=== PATIENT | female | born 1955 | race Caucasian/White ===

== ENCOUNTER → 2018-01-14 | Outpatient (CLI) | payer OTHER ==
--- NOTE | 2018-01-14 16:39 | XR ---
EXAMINATION TYPE: XR lumbar spine 2 or 3V DATE OF EXAM: 01/14/2018 COMPARISON: NONE HISTORY: Low back pain TECHNIQUE: 3 views FINDINGS: Vertebra have normal alignment. Posterior elements are intact. The disc spaces are fairly n ormal. There is slight depression of the superior endplate of L3 of 5%. Abdominal aorta is atheromato us. There is osteopenia. Sacroiliac joints appear normal. IMPRESSION: Osteopenia. Slight depression of the superior endplate of L3. This is probably old.
== END | disposition home or self-care (01) ==
LOC: RADXRYALE 16:16
PROVIDERS: ATTEND Internal Medicine
DX: M85.88 Other specified disorders of bone density and structure, other site (principal); M53.86 Other specified dorsopathies, lumbar region
CPT/HCPCS: 72100

== ENCOUNTER → 2018-01-28 | Outpatient (CLI) | payer OTHER ==
--- NOTE | 2018-01-29 12:48 | ECHOF ---
Referral Reason:I10 hypertension MEASUREMENTS -------- HEIGHT: 162.6 cm WEIGHT: 149.7 kg BP: 180/87 RVIDd: 2.7 cm (< 3.3) IVSd: 1.2 cm (0.6 - 1.1) LVIDd: 4.0 cm (3.9 - 5.3) LVPWd: 1.3 cm (0.6 - 1.1) IVSs: 1.8 cm LVIDs: 2.7 cm LVPWs: 1.7 cm LA Diam: 3.1 cm (2.7 - 3.8) LAESV Index (A-L): 19.12 ml/m Ao Diam: 2.8 cm (2.0 - 3.7) AV Cusp: 1.5 cm (1.5 - 2.6) MV EXCURSION: 14.577 mm (> 18.000) MV EF SLOPE: 45 mm/s (70 - 150) EPSS: 0.6 cm MV E Duane: 0.87 m/s MV DecT: 304 ms MV A Duane: 1.18 m/s MV E/A Ratio: 0.74 AV maxP.13 mmHg AV meanP.41 mmHg RAP: 5.00 mmHg RVSP: 26.20 mmHg FINDINGS -------- Sinus rhythm. This was a technically adequate study. The left ventricular size is normal. There is mild concentric left ventricular hypertrophy. Overa ll left ventricular systolic function is normal with, an EF between 55 - 60 %. The right ventricle is normal in size. Normal LA size by volume 22+/-6 ml/m2. The right atrium is normal in size. There is moderate aortic valve sclerosis. Trace to mild aortic regurgitation. There is moderate a ortic stenosis present. Peak/mean gradient across the Aortic Valve is 60.13mmHg / 33.41mmHg. Mild mitral annular calcification present. Trace tricuspid regurgitation present. Right ventricular systolic pressure is normal at < 35 mmHg. The pulmonic valve was not well visualized. There is no pulmonic regurgitation present. The aortic root size is normal. IVC Not well visulized. There is no pericardial effusion. CONCLUSIONS -------- 1. Sinus rhythm. 2. This was a technically adequate study. 3. The left ventricular size is normal. 4. There is mild concentric left ventricular hypertrophy. 5. Overall left ventricular systolic function is normal with, an EF between 55 - 60 %. 6. Normal LA size by volume 22+/-6 ml/m2. 7. There is moderate aortic valve sclerosis. 8. Trace to mild aortic regurgitation. 9. There is moderate aortic stenosis present. 10. Peak/mean gradient across the Aortic Valve is 60.13mmHg / 33.41mmHg. 11. Mild mitral annular calcification present. 12. Trace tricuspid regurgitation present. 13. Right ventricular systolic pressure is normal at < 35 mmHg. 14. The pulmonic valve was not well visualized. 15. There is no pulmonic regurgitation present. 16. The aortic root size is normal. 17. IVC Not well visulized. 18. There is no pericardial effusion. GLOVE PAIRER: Angelica Hendricks RDCS
== END | disposition home or self-care (01) ==
LOC: RADECHMAIN 14:26
PROVIDERS: ATTEND Internal Medicine
DX: I08.2 Rheumatic disorders of both aortic and tricuspid valves (principal); I11.9 Hypertensive heart disease without heart failure
CPT/HCPCS: 93306

== ENCOUNTER → 2018-06-22 | Outpatient (CLI) | payer OTHER ==
--- NOTE | 2018-06-23 08:12 | PE ---
EXAMINATION TYPE: PET CT fusion skull to thigh DATE OF EXAM: 06/22/2018 COMPARISON: None at this institution. HISTORY: Left-sided breast cancer diagnosed 1997 completed radiation treatment 1998. TECHNIQUE: Following the intravenous administration of 13.074 mCi of F-18 FDG, whole body images are performed from the skull base to the midthigh. Images are reviewed on the computer in the coronal, axial, and sagittal planes. Reconstructed rotating images are created on independent workstation and reviewed on the computer. A noncontrast CT is performed in conjunction with the PET scan. SCAN: Subsequent Scan FINDINGS: SKULL BASE AND NECK: No suspicious hypermetabolic uptake is present. CHEST, MEDIASTINUM, AND HILAR REGION: There are multiple enlarged left axillary lymph nodes extending superiorly to level of clavicle, largest measures 2.9 x 2.0 cm axial image 67 with max SUV of 12.07. Abnormal supraclavicular 1.0 x 0.9 cm hypermetabolic lymph node axial image 56 is noted for referen ce. There are additional hypermetabolic but predominantly subcentimeter right axillary lymph nodes, max S UV is 15.48 axial image 72 of largest lymph node measuring 2.1 x 1.2 cm that has some fatty hilum paul ntified anteriorly. There is asymmetric diminished size to the left breast versus opposite right breast from prior lumpec meghan. Just below dystrophic calcifications there is irregular soft tissue with increased hypermetabol ic uptake, max SUV is 6.51 axial image 82. Local recurrence at this level cannot be excluded. Correla te with mammogram and ultrasound advised. ABDOMEN AND PELVIS: No suspicious hypermetabolic uptake is seen. OSSEOUS STRUCTURES: Osseous metastatic disease is suspected as there are several hypermetabolic foci throughout the bones present. Multifocal hypermetabolic lesions are seen in the spine for reference l eft T3 lesion axial image 70 has max SUV of 9.51 corresponding to subtle sclerotic focus. There is in volvement most prominently in the L3 vertebra axial image 156 with max SUV of 10.06. Mild height loss or compression at this level is felt present. This was present January 14, 2018 x-rays. Smaller hypermet abolic foci throughout the pelvis are also seen. OTHER CT: Evaluation noted suboptimal due to artifact related to patient's large body habitus. Mild cardiomegaly is present. Mitral annular calcifications are seen. Gallbladder has distended margins. Uterus is surgically absent. IMPRESSION: Suspect local neoplastic recurrence left breast with suspicious bilateral axillary adenop athy and osseous metastatic disease. Correlate clinically. Ultrasound-guided biopsy of largest left a xillary lymph node can be performed for tissue confirmation if desired.
== END | disposition home or self-care (01) ==
LOC: RADPETMAIN 12:02
PROVIDERS: ATTEND Internal Medicine Hematology & Oncology
DX: C50.112 Malignant neoplasm of central portion of left female breast (principal)
CPT/HCPCS: 78815; A9552

== ENCOUNTER → 2018-07-16 | Outpatient (CLI) | payer OTHER ==
--- NOTE | 2018-07-16 14:02 | MM ---
Reason for exam: additional evaluation requested from abnormal screening. Last mammogram was performed 5 years and 7 months ago. History: Patient has history of high-risk lesion on a previous biopsy at age 47, has history of high-risk lesion on a previous biopsy at age 47, and has history of breast cancer at age 43. Family history of breast cancer in maternal aunt at age 43. Benign right mammotome panel of the right breast, September 04, 2011. Benign ultrasound-guided core biopsy of the right breast, February 16, 2005. High risk excisional biopsy of the right breast, May 15, 2002. High risk excisional biopsy of the right breast, October 25, 2001. Lumpectomy of the left breast, 1998. Radiation therapy of the left breast, 1998. Excisional biopsy of the right breast. Took tamoxifen for 5 years. Physical Findings: Nurse Summary: 5 x 3cm nodule in the left breast at the nipple (nurse dw). MG 3D Diag Mammo W/Cad LT CC and MLO view(s) were taken of the left breast. Prior study comparison: December 02, 2012, CAD bilateral diagnostic mammogram. August 10, 2011, CAD bilateral diagnostic mammogram. The breast tissue is heterogeneously dense. This may lower the sensitivity of mammography. There are multiple masses persisting on spot compression in the upper inner quadrant and upper outer quadrant with upper outer quadrant linear 1.6cm group of calcifications and large dystrophic calcifications. Post therapy change also seen on the left. These results were verbally communicated with the patient and result sheet given to the patient on 07/16/18. ASSESSMENT: Highly suggestive of malignancy, BI-RAD 5 RECOMMENDATION: Ultrasound core biopsy of the left breast. Biopsy scheduled for 07/16/18 at 12:20.
--- NOTE | 2018-07-16 14:06 | USB ---
Reason for exam: additional evaluation requested from abnormal screening. History: Patient has history of high-risk lesion on a previous biopsy at age 47, has history of high-risk lesion on a previous biopsy at age 47, and has history of breast cancer at age 43. Family history of breast cancer in maternal aunt at age 43. Benign right mammotome panel of the right breast, September 04, 2011. Benign ultrasound-guided core biopsy of the right breast, February 16, 2005. High risk excisional biopsy of the right breast, May 15, 2002. High risk excisional biopsy of the right breast, October 25, 2001. Lumpectomy of the left breast, 1998. Radiation therapy of the left breast, 1998. Excisional biopsy of the right breast. Took tamoxifen for 5 years. US Breast LT Left complete breast ultrasound includes all four quadrants, the retroareolar region and axilla. Finding demonstrates several solid, highly suspicious lesions measuring 0.8 x 0.5 x 0.6cm at 12 o'clock, 0.4 x 0.3 x 0.6cm at 1 o'clock, 0.9 x 0.5 x 0.6cm at 4 o'clock, 0.7 x 0.4 x 1.4cm at 9 o'clock, 0.5 x 0.7 x 0.5cm at the nipple and a 0.3 x 0.4 x 0.4cm highly suspicious lesion at the axilla. These results were verbally communicated with the patient and result sheet given to the patient on 07/16/18. ASSESSMENT: Highly suggestive of malignancy, BI-RAD 5 RECOMMENDATION: Ultrasound core biopsy of the left breast. One site biopsy for new pathology diagnosis/type. Biopsy scheduled for 07/16/18 at 12:20.
== END ==
LOC: RADMAMWWP 10:10
PROVIDERS: ATTEND Internal Medicine Hematology & Oncology
DX: N63.20 Unspecified lump in the left breast, unspecified quadrant (principal); Z85.3 Personal history of malignant neoplasm of breast
CPT/HCPCS: 77061; 77065

== ENCOUNTER → 2018-07-16 | Day surgery (SDC) | payer OTHER ==
[2018-07-16 11:57] VITALS: RESP 16; BMI 55.7
[2018-07-16 12:34] VITALS: BP 139/71; PULSE 75; TEMP 98.6
--- NOTE | 2018-07-16 12:51 | USB ---
EXAMINATION TYPE: US biopsy breast VAD LT DATE OF EXAM: 07/16/2018 CLINICAL HISTORY: Z85.3 Personal HX Of Breast CA, N63 Breast Lump. TECHNIQUE: Ultrasound guided core biopsy of left breast. COMPARISON: Diagnostic left mammogram of the same date FINDINGS: The procedure of ultrasound guided core biopsy was explained to the patient. Benefits, alt ernatives, and risks were discussed. An informed consent was then obtained. Preprocedural timeout w as performed The patient was placed in supine positioning for imaging and for the procedure. The overlying skin w as prepped and draped in usual sterile fashion. Lidocaine buffered with bicarbonate was used as anes thetic into the skin and subcutaneous tissue up to the 0.8 x 0.5 x 0.6 cm mass at the 12:00 position in zone a in the left breast. Under ultrasound guidance, a 12-gauge vacuum assisted biopsy gun device was used to obtain 5 core jim ples. Following this, a ribbon-shaped biopsy marker was left in lesion. The patient tolerated the procedure well without any immediate complication. The patient was kept in the radiology department for short stay after the procedure and then discharged home in stable condi tion. IMPRESSION: Successful, uncomplicated ultrasound guided core biopsy of the highly suspicious 0.8 x 0. 5 x 0.6 cm mass at the 12:00 position in the left breast, full pathology results to follow. Multiple other suspicious left sided masses and suspicious left axillary lymph nodes, of increased FDG avidity on the recent PET/CT, are seen in this patient with a history of left breast carcinoma.
== END | disposition home or self-care (01) ==
LOC: RADUSWWP 10:16 → EDSTATUS 12:20
PROVIDERS: ATTEND Internal Medicine Hematology & Oncology
DX: N63.21 Unspecified lump in the left breast, upper outer quadrant (principal); Z85.3 Personal history of malignant neoplasm of breast
CPT/HCPCS: 19083; A4648; J2001

== ENCOUNTER → 2018-11-09 | Outpatient (CLI) | payer OTHER ==
--- NOTE | 2018-11-11 10:13 | PE ---
Nuclear medicine PET/CT history: Breast carcinoma, subsequent Patient received 13.2 mCi F-18 FDG intravenously in delayed scanning was performed from the skull bas e to the mid thighs. Localization and attenuation correction CT scan was performed. Correlation to prior nuclear medicine PET/CT 06/22/2018 Neck and chest: Uptake in the level of the vocal cords is likely due to speaking during the exam. The re is no evident mediastinal, axillary, or hilar adenopathy. No evident lung mass. There is interstit ial change, pleural thickening noted within the lungs. Nonenlarged left axillary node shows an SUV of 2.4, decreased from prior Abdomen pelvis: No evident liver mass, no retroperitoneal adenopathy. No suspicious hypermetabolic up take. No ascites. Osseous structures: There is some uptake identified within the T3 vertebral body, SUV is 4.4 decrease d from prior which measured SUV 9.5. Multiple sclerotic foci are scattered within the skeleton which are more conspicuous and perhaps more extensive than on previous exam. Some mild hypermetabolic uptak e present within the T8 vertebral body SUV 2.6. Degenerative disc changes, facet arthropathy noted in the lumbar spine. IMPRESSION: Improvement in the abnormal hypermetabolic uptake, adenopathy seen on prior exam. There i s increased conspicuity of bony metastatic disease as described.
== END | disposition home or self-care (01) ==
LOC: RADPETMAIN 09:50
PROVIDERS: ATTEND Internal Medicine Hematology & Oncology
DX: C79.51 Secondary malignant neoplasm of bone (principal); C50.112 Malignant neoplasm of central portion of left female breast
CPT/HCPCS: 78815; A9552

== ENCOUNTER → 2018-11-27 | Outpatient (CLI) | payer OTHER ==
--- NOTE | 2018-11-27 13:19 | XR ---
EXAMINATION TYPE: XR chest 2V DATE OF EXAM: 11/27/2018 COMPARISON: 07/16/2009 INDICATION: Short of breath, history of breast cancer TECHNIQUE: Frontal and lateral views of the chest are obtained. FINDINGS: The heart size is normal. The pulmonary vasculature is normal. Some minimal infiltrate appears to be at the right base. Correlate for plate atelectasis. Early pneum onia could be considered in the proper clinical setting.. IMPRESSION: 1. Minimal infiltrate in the right lower lobe. Correlate for atelectasis and pneumonia. Follow-up can be performed as clinically indicated.
== END ==
LOC: RADXRMAIN 12:46
PROVIDERS: ATTEND Nurse Practitioner Adult Health
DX: R91.8 Other nonspecific abnormal finding of lung field (principal); C50.112 Malignant neoplasm of central portion of left female breast; C79.51 Secondary malignant neoplasm of bone; D05.00 Lobular carcinoma in situ of unspecified breast; Z71.3 Dietary counseling and surveillance
CPT/HCPCS: 71046

== ENCOUNTER → 2019-01-22 | Outpatient (CLI) | payer OTHER ==
--- NOTE | 2019-01-22 13:19 | US ---
EXAMINATION TYPE: US venous doppler duplex LE LT DATE OF EXAM: 01/22/2019 1:00 PM COMPARISON: NONE CLINICAL HISTORY: M79.662 Pain in left lower legR22.42Localized swell. Patient states she missed one "water pill" 4 days ago, her leg swelled and has not gone down. SIDE PERFORMED: Right TECHNIQUE: The lower extremity deep venous system is examined utilizing real time linear array sonog darline with graded compression, doppler sonography and color-flow sonography. VESSELS IMAGED: External Iliac Vein (EIV) Common Femoral Vein Deep Femoral Vein Greater Saphenous Vein * Femoral Vein Popliteal Vein Small Saphenous Vein * Proximal Calf Veins (* superficial vessels) Suboptimal exam due to large patient size. No evidence of DVT at this time. Left Leg: Negative for DVT IMPRESSION: 1. Left lower extremity ultrasound negative for deep venous thrombosis.
--- NOTE | 2019-01-22 13:37 | XR ---
EXAMINATION TYPE: XR chest 2V DATE OF EXAM: 01/22/2019 COMPARISON: 11/27/2018 INDICATION: C 50.112 TECHNIQUE: Frontal and lateral views of the chest are obtained. FINDINGS: The heart size is prominent. The pulmonary vasculature is normal. The lungs are clear. IMPRESSION: 1. Mild Cardiomegaly
== END | disposition home or self-care (01) ==
LOC: RADUSWWP 12:30
PROVIDERS: ATTEND Internal Medicine Hematology & Oncology
DX: I51.7 Cardiomegaly (principal); C50.112 Malignant neoplasm of central portion of left female breast; C79.51 Secondary malignant neoplasm of bone; R22.42 Localized swelling, mass and lump, left lower limb; Z71.3 Dietary counseling and surveillance
CPT/HCPCS: 71046

== ENCOUNTER 2019-03-05 14:03 | Inpatient (IN) | payer OTHER ==
[2019-03-05] MEDS ORDERED: IPRATROPIUM-ALBUTEROL 3 ML NEB INHALATION STA (14:42)
[2019-03-05] MEDS ORDERED: ONDANSETRON 4 MG/2 ML VIAL IVP STA (14:43)
[2019-03-05] MEDS ORDERED: FAMOTIDINE 20 MG/2 ML VIAL IV STA (14:43)
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
[2019-03-05 15:03] LABS: Basophils % (A) 1 %; Eosinophils % (A) 1 %; HCT 34.1 % (34.0-46.0); HGB 11.9 gm/dL (11.4-16.0); Lymphocytes # (A) 0.1 k/uL (1.0-4.8); Lymphocytes % (A) 7 %; MCH 36.4 pg (25.0-35.0); MCHC 34.9 g/dL (31.0-37.0); MCV 104.3 fL (80.0-100.0); Macrocytosis Slight; Mean Platelet Volume 8.2; Monocytes # (A) 0.1 k/uL (0-1.0); Monocytes % (A) 3 %; Neutrophils # (A) 1.4 k/uL (1.3-7.7); Neutrophils % (A) 86 %; RBC 3.27 m/uL (3.80-5.40); RDW 13.7 % (11.5-15.5); WBC 1.6 k/uL (3.8-10.6)
[2019-03-05 15:12] LABS: INR 0.9 (<1.2); Partial Thromboplastin Time 23.9 sec (22.0-30.0); Prothrombin Time 9.9 sec (9.0-12.0)
[2019-03-05 15:16] LABS: Albumin 3.3 g/dL (3.5-5.0); Calcium 8.2 mg/dL (8.4-10.2); Total Protein 6.2 g/dL (6.3-8.2)
[2019-03-05 15:33] LABS: Anisocytosis (M) Present; Platelet Count 60 k/uL (150-450); Polychromasia Present
--- NOTE | 2019-03-05 16:29 | XR ---
EXAMINATION TYPE: XR chest 2V DATE OF EXAM: 03/05/2019 COMPARISON: Chest x-ray January 22, 2019. HISTORY: History of breast cancer with shortness of breath TECHNIQUE: Frontal and lateral views of the chest are obtained. FINDINGS: Overlying EKG leads are present. There is no focal air space opacity, pleural effusion, or pneumothorax seen. The cardiac silhouette size is stable and mildly enlarged. The osseous structur es are demineralized. IMPRESSION: Mild cardiomegaly without acute pulmonary process. No significant change from prior.
[2019-03-05] MEDS ORDERED: NALOXONE 0.4 MG/ML 1 ML VIAL IV PRN (16:57)
[2019-03-05] MEDS ORDERED: IPRATROPIUM-ALBUTEROL 3 ML NEB INHALATION PRN (16:57)
[2019-03-05] MEDS ORDERED: ONDANSETRON 4 MG/2 ML VIAL IVP PRN (16:57)
--- NOTE | 2019-03-05 17:26 | CT ---
EXAMINATION TYPE: CT angio chest DATE OF EXAM: 03/05/2019 5:15 PM COMPARISON: None HISTORY: SOB, Hx of Breast CA with mets CT DLP: 702.3 mGycm Automated exposure control for dose reduction was used. CONTRAST: CTA scan of the thorax is performed with IV Contrast, patient injected with 80 mL of Isovue 370, pulm onary embolism protocol. There are 3-D post processed images.. FINDINGS: There are some emphysematous changes in the lungs. There is mild reticular density at the lung bases consistent with scarring and atelectasis. There is no pleural effusion. Heart size is normal. There i s no pericardial effusion. Thoracic aorta is intact. There is no aneurysm or dissection. There is no mediastinal adenopathy. There are no hilar masses. There is normal contrast opacification of the pulm onary arteries. There are no filling defects. There are paratracheal lymph nodes measuring less than 1 cm. There are some subtle mixed density areas in the liver. There are numerous osteoblastic foci in the thoracic spine in the vertebral bodies. There are also so me foci of osteoblastic change in the ribs. IMPRESSION: NO EVIDENCE OF PULMONARY EMBOLISM.. 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 THERE IS PROG RESSION OF THE BLASTIC CHANGES COMPARED TO OLD CT SCAN OF 06/15/1718. SUBTLE SMALL AREAS OF MIXED DEN SITY IN THE LIVER COULD RELATE TO METASTATIC DISEASE. MILD PULMONARY EMPHYSEMA. MILD SCARRING AT THE LUNG BASES.
[2019-03-05] MEDS: SODIUM CHLORIDE 0.9% 1,000 ML IV SCH (17:53)
[2019-03-05] MEDS: IPRATROPIUM-ALBUTEROL 3 ML NEB INHALATION SCH (21:18)
[2019-03-05] MEDS: SENNOSIDES 8.6 MG TAB PO SCH (21:38)
[2019-03-05] MEDS: GABAPENTIN 300 MG CAP PO SCH (21:38)
[2019-03-05] MEDS: ATORVASTATIN 40 MG TAB PO SCH (21:38)
[2019-03-05] MEDS: LETROZOLE 2.5 MG TAB PO SCH (21:38)
[2019-03-05] MEDS: PANTOPRAZOLE 40 MG/10 ML VIAL IV SCH (21:41)
[2019-03-05] MEDS: LORATADINE 10 MG TAB PO SCH (21:41)
[2019-03-06] MEDS: HYDROcodone/APAP 7.5-325MG 1 EACH TAB PO PRN ×2 (07:22→16:21)
[2019-03-06] MEDS: LORATADINE 10 MG TAB PO SCH (07:23)
[2019-03-06] MEDS: SENNOSIDES 8.6 MG TAB PO SCH ×2 (07:23→22:02)
[2019-03-06] MEDS: LETROZOLE 2.5 MG TAB PO SCH ×2 (07:24→22:02)
[2019-03-06] MEDS: PANTOPRAZOLE 40 MG/10 ML VIAL IV SCH (07:25)
[2019-03-06] MEDS: IPRATROPIUM-ALBUTEROL 3 ML NEB INHALATION SCH ×4 (07:53→20:27)
[2019-03-06 08:21] LABS: HCT 30.6 % (34.0-46.0); HGB 10.4 gm/dL (11.4-16.0); MCH 35.7 pg (25.0-35.0); MCV 105.1 fL (80.0-100.0); Macrocytosis Moderate; RBC 2.91 m/uL (3.80-5.40); RDW 14.8 % (11.5-15.5)
[2019-03-06 08:29] LABS: ALT 37 U/L (9-52); AST 49 U/L (14-36); African American GFR (CKD) >90 (>60 ml/min/1.73 sqM); Albumin 2.8 g/dL (3.5-5.0); Alkaline Phosphatase 55 U/L (38-126); Anion Gap 7 mmol/L; Blood Urea Nitrogen 14 mg/dL (7-17); Calcium 7.9 mg/dL (8.4-10.2); Carbon Dioxide 27 mmol/L (22-30); Chloride 102 mmol/L (98-107); Glucose 95 mg/dL (74-99); Potassium 3.9 mmol/L (3.5-5.1); Sodium 136 mmol/L (137-145); Total Bilirubin 1.1 mg/dL (0.2-1.3); Total Protein 5.4 g/dL (6.3-8.2)
[2019-03-06 08:32] LABS: Platelet Count 54 k/uL (150-450); WBC 1.1 k/uL (3.8-10.6)
[2019-03-06] MEDS ORDERED: PANTOPRAZOLE 40 MG/10 ML VIAL IV SCH (09:00)
[2019-03-06] MEDS: SODIUM CHLORIDE 0.9% 1,000 ML IV SCH ×2 (10:05→20:24)
[2019-03-06 10:11] LABS: Band Neutrophils % 1 %; Eosinophils # (M) 0.01 k/uL (0-0.7); Lymphocytes # (M) 0.08 k/uL (1.0-4.8); Monocytes # (M) 0.03 k/uL (0-1.0); Neutrophils % (M) 88 %; Nucleated Red Blood Cells 0 /100 WBC (0-0); Total Cells Counted 100
[2019-03-06] MEDS ORDERED: PETROLATUM, WHITE OINT 50 GM TUBE TOPICAL PRN (13:20)
--- NOTE | 2019-03-06 13:24 | P.CONS ---
History of Present Illness - Reason for Consult Consult date: 03/06/19 Metastatic Breast Cancer Requesting physician: Ashutosh Saldana - Chief Complaint dysphagia - History of Present Illness Santa is a patient well known to us, primary oncologist Dr. Wheat. She has known metastatic Breast Cancer. Most recently progression in spiny bone and status post radiation. Since radiation increased dysphagia, secretion, and pain. Increased Shortness of breath and chills. She has open burn from radiation. On presentation pancytopenia, ibrance on old. Review of Systems A 14 point review of systems assessed and completed and all negative except HPI Past Medical History Past Medical History: Cancer, CVA/TIA, Hyperlipidemia, Hypertension Additional Past Medical History / Comment(s): hx CVA left side 2018, Left breast cancer 1997, spine cancer 2017 History of Any Multi-Drug Resistant Organisms: None Reported Past Surgical History: Breast Surgery, Hysterectomy, Joint Replacement Additional Past Surgical History / Comment(s): left knee replacement, several breast biopsies Past Anesthesia/Blood Transfusion Reactions: No Reported Reaction Past Psychological History: No Psychological Hx Reported Smoking Status: Former smoker Past Alcohol Use History: Rare Past Drug Use History: None Reported Medications and Allergies Home Medications Medication Instructions Recorded Confirmed Type Aspirin [Adult Low Dose Aspirin EC] 162 mg PO DAILY 07/03/18 03/05/19 History Atorvastatin [Lipitor] 40 mg PO HS 07/03/18 03/05/19 History Diltiazem HCl [Diltiazem 24Hr ER] 180 mg PO DAILY 07/03/18 03/05/19 History Albuterol Inhaler [Ventolin Hfa 2 puff INHALATION RT-QID PRN 03/05/19 03/05/19 History Inhaler] Fluticasone Nasal [place] [Flonase 1 spray EA NOSTRIL DAILY 03/05/19 03/05/19 History Nasal [place]] Furosemide [Lasix] 40 mg PO DAILY 03/05/19 03/05/19 History Gabapentin [Neurontin] 300 mg PO DAILY 03/05/19 03/05/19 History Gabapentin [Neurontin] 600 mg PO HS 03/05/19 03/05/19 History Letrozole [Femara] 2.5 mg PO DAILY 03/05/19 03/05/19 History Magic Mouthwash 30 - 60 ml PO QID PRN 03/05/19 03/05/19 History Montelukast [Singulair] 10 mg PO HS 03/05/19 03/05/19 History Omeprazole 20 mg PO DAILY 03/05/19 03/05/19 History Potassium Chloride 20 meq PO DAILY 03/05/19 03/05/19 History Allergies Allergy/AdvReac Type Severity Reaction Status Date / Time No Known Allergies Allergy Verified 03/05/19 14:14 Physical Exam Vitals: Vital Signs Temp Pulse Pulse Resp BP BP Pulse Ox 03/06/19 08:05 100 03/06/19 07:53 100 03/06/19 07:00 98.7 F 96 16 118/77 95 03/06/19 04:00 105 H 03/06/19 01:18 98.3 F 105 H 18 114/70 94 L 03/06/19 00:00 105 H 03/05/19 21:29 127 H 03/05/19 21:18 124 H 97 03/05/19 19:45 110 H 03/05/19 19:43 98.7 F 110 H 18 126/75 96 03/05/19 17:37 99.9 F H 105 H 19 148/95 98 03/05/19 15:50 98 20 124/75 99 03/05/19 15:34 98 03/05/19 15:21 98 03/05/19 14:11 99.1 F 101 H 20 116/76 91 L Intake and Output 03/05/19 03/06/19 03/06/19 22:59 06:59 14:59 Intake Total 150 Balance 150 Intake: Intake, IV Titration 150 Amount Sodium Chloride 0.9% 1, 150 000 ml @ 75 mls/hr IV . [id number] [facility] Rx#:[id number] Other: Voiding Method Toilet # Voids 1 1 General: Alert and Oriented x3, No Acute Distress Head: Normocytic, Atraumatic Neck: Supple Mouth: No Lesions, No Thrush Eyes: Non-sclerotic No Palpable cervical, supraclavicular, axillary adenopathy Heart: Regular Rate, Regular Rhythm Lungs: Clear to Ausculations, No Wheeze, No Rhonchi, Diminishe bilateral lower lobes, No increased respiratory effort noted Abdomen: Soft, Non-Distended, Non-Tended, BSx4 Extremities: No Edema, Equal Strength Neurological: No Focal Defects: No sensory or motor deficits noted Psych: Calm and cooperative Evidence of radiation excoriation posterior thorax erythema and mild edema noted Results CBC & Chem 7: 03/06/19 07:02 03/06/19 07:02 Labs: Abnormal Lab Results - Last 24 Hours (Table) 03/05/19 03/05/19 03/06/19 Range/Units 14:53 14:53 07:02 WBC 1.6 L 1.1 L* (3.8-10.6) k/uL RBC 3.27 L 2.91 L (3.80-5.40) m/uL Hgb 10.4 L (11.4-16.0) gm/dL Hct 30.6 L (34.0-46.0) % MCV 104.3 H 105.1 H (80.0-100.0) fL MCH 36.4 H 35.7 H (25.0-35.0) pg Plt Count 60 L 54 L (150-450) k/uL Neutrophils # (Manual) 0.90 L (1.3-7.7) k/uL Lymphocytes # 0.1 L (1.0-4.8) k/uL Lymphocytes # (Manual) 0.08 L (1.0-4.8) k/uL Sodium (137-145) mmol/L Glucose 106 H (74-99) mg/dL Calcium 8.2 L (8.4-10.2) mg/dL AST 49 H (14-36) U/L Total Protein 6.2 L (6.3-8.2) g/dL Albumin 3.3 L (3.5-5.0) g/dL 03/06/19 Range/Units 07:02 WBC (3.8-10.6) k/uL RBC (3.80-5.40) m/uL Hgb (11.4-16.0) gm/dL Hct (34.0-46.0) % MCV (80.0-100.0) fL MCH (25.0-35.0) pg Plt Count (150-450) k/uL Neutrophils # (Manual) (1.3-7.7) k/uL Lymphocytes # (1.0-4.8) k/uL Lymphocytes # (Manual) (1.0-4.8) k/uL Sodium 136 L (137-145) mmol/L Glucose (74-99) mg/dL Calcium 7.9 L (8.4-10.2) mg/dL AST 49 H (14-36) U/L Total Protein 5.4 L (6.3-8.2) g/dL Albumin 2.8 L (3.5-5.0) g/dL Microbiology - Last 24 Hours (Table) 03/05/19 14:57 Blood Culture - Final Blood 03/05/19 15:10 Group A Strep Throat Culture - Preliminary Throat CT scan - chest: report reviewed Assessment and Plan Plan: Pancytopenia: - Secondary to chemotherapy with ibrance and Radiation - Hold chemotherapy at this time - Monitor S/s Infection - transfuse hemoglobin less than 7, platlets les than 10 - Levaquin Metastatic Breast cancer - Bone - ?Progression - Xgeva, Femara, and Ibrance - XRT to spine recently completed Increased Secretions - Resulting in increased Dysphagia - trial bentyl and scope Shortness of Breath: - CTA negative Radiation Burn Posterior thorax: - Silvadene Neoplastic Related Pain: - Continue current pain regimen - Add bowel protocol.
[2019-03-06 13:40] VITALS: BMI 53.7
--- NOTE | 2019-03-06 15:08 | P.HPIM ---
History of Present Illness H&P Date: 03/05/19 Chief Complaint: Intractable nausea and vomiting Patient is 62-year-old female with a known history of metastatic breast cancer to thoracic and lumbar vertebrae and ribs with blastic lesions, hypertension, hyperlipidemia and history of CVA TIA with some left-sided weakness came to ER with complaints of nausea vomiting and unable to tolerate oral diet. Patient has completed radiation therapy recently and has been having throat pain and unable to tolerate oral diet. Patient also complaining of shortness of breath and sinus congestion as well as postnasal drip which has been bothering a lot. Denied any complaints of fever but patient does have chills. Patient is also on oral chemotherapy. Patient was breast Cance was initially diagnosed in 1997 and has recurrence last year. Patient has metastatic lesions to bones. No complaints of dysuria or hematuria. Chest x-ray showed mild cardiomegaly without acute pulmonary process. No signal change from prior. CT angiogram of the chest showed no evidence of pulmonary embolism. Osteoblastic metastatic disease in the bony thorax. There is progression of the blastic changes compared to old computed tomography scan of 06/15/2018. Subtle small areas of mixed density in the liver could relate to metastatic disease. Mild pulmonary emphysema. Mild scarring at the lung bases. EKG showed sinus rhythm. WBC 1.6 and platelets 60,000 Hemoglobin 11.3 Strep throat negative. Review of Systems Constitutional: Denied any fever. But patient does have chills.. Generalized weakness and malaise. loss. Abdomen: Nausea vomiting and no abdominal pain or diarrhea.. Cardiovascular: Patient denies any chest pain or short of breath no palpitations. Respiratory: Cough without sputum production.. Does have shortness of breath Neurologic: Patient denied any numbness or tingling headache. Musculoskeletal: Patient denies any complaints of joint swelling or deformity. Skin: Negative Psychiatric: Negative Endocrine: No heat or cold intolerance. No recent weight gain. Genitourinary: No dysuria or hematuria. All other 14 point ROS negative except the above Past Medical History Past Medical History: Cancer, CVA/TIA, Hyperlipidemia, Hypertension Additional Past Medical History / Comment(s): hx CVA left side 2017, Left breast cancer 1997, spine cancer 2017 History of Any Multi-Drug Resistant Organisms: None Reported Past Surgical History: Breast Surgery, Hysterectomy, Joint Replacement Additional Past Surgical History / Comment(s): left knee replacement, several breast biopsies Past Anesthesia/Blood Transfusion Reactions: No Reported Reaction Past Psychological History: No Psychological Hx Reported Smoking Status: Former smoker Past Alcohol Use History: Rare Past Drug Use History: None Reported Medications and Allergies Home Medications Medication Instructions Recorded Confirmed Type Aspirin [Adult Low Dose Aspirin EC] 162 mg PO DAILY 07/03/18 03/05/19 History Atorvastatin [Lipitor] 40 mg PO HS 07/03/18 03/05/19 History Diltiazem HCl [Diltiazem 24Hr ER] 180 mg PO DAILY 07/03/18 03/05/19 History Albuterol Inhaler [Ventolin Hfa 2 puff INHALATION RT-QID PRN 03/05/19 03/05/19 History Inhaler] Fluticasone Nasal [place] [Flonase 1 spray EA NOSTRIL DAILY 03/05/19 03/05/19 History Nasal [place]] Furosemide [Lasix] 40 mg PO DAILY 03/05/19 03/05/19 History Gabapentin [Neurontin] 300 mg PO DAILY 03/05/19 03/05/19 History Gabapentin [Neurontin] 600 mg PO HS 03/05/19 03/05/19 History Letrozole [Femara] 2.5 mg PO DAILY 03/05/19 03/05/19 History Magic Mouthwash 30 - 60 ml PO QID PRN 03/05/19 03/05/19 History Montelukast [Singulair] 10 mg PO HS 03/05/19 03/05/19 History Omeprazole 20 mg PO DAILY 03/05/19 03/05/19 History Potassium Chloride 20 meq PO DAILY 03/05/19 03/05/19 History Allergies Allergy/AdvReac Type Severity Reaction Status Date / Time No Known Allergies Allergy Verified 03/05/19 14:14 Physical Exam Vitals: Vital Signs Temp Pulse Pulse Resp BP BP Pulse Ox 03/05/19 21:29 127 H 03/05/19 21:18 124 H 97 03/05/19 19:43 98.7 F 110 H 18 126/75 96 03/05/19 17:37 99.9 F H 105 H 19 148/95 98 03/05/19 15:50 98 20 124/75 99 03/05/19 15:34 98 03/05/19 15:21 98 03/05/19 14:11 99.1 F 101 H 20 116/76 91 L Intake and Output 03/05/19 03/05/19 03/05/19 06:59 14:59 22:59 Other: Weight 141.974 kg PHYSICAL EXAMINATION: Patient is lying in the bed comfortably, mild distress, awake alert and oriented.. HEENT: Normocephalic. Neck is supple. Pupils reactive. Nostrils clear. Oral cavity is moist. Ears reveal no drainage. Neck reveals no JVD, carotid bruits, or thyromegaly. CHEST EXAMINATION: Trachea is central. Patient does have red skinrash on the upper chest and upper back due to recent radiation. Symmetrical expansion. Bibasilar diminished air entry. Lung chiang clear to auscultation and percussion. CARDIAC: Normal S1, S2 with no gallops. No murmurs ABDOMEN: Soft. Bowel sounds normal. No organomegaly. No abdominal bruits. Extremities: reveal no edema. No clubbing or cyanosis Neurologically awake, alert, oriented x3 with well-coordinated movements. No focal deficits noted Skin: No rash or skin lesions. Psychiatric: Coperative. Nonsuicidal Musculoskeletal: No joint swelling or deformity. Normal range of motion. Results CBC & Chem 7: 03/06/19 07:02 03/06/19 07:02 Labs: Abnormal Lab Results - Last 24 Hours (Table) 03/05/19 03/05/19 Range/Units 14:53 14:53 WBC 1.6 L (3.8-10.6) k/uL RBC 3.27 L (3.80-5.40) m/uL MCV 104.3 H (80.0-100.0) fL MCH 36.4 H (25.0-35.0) pg Plt Count 60 L (150-450) k/uL Lymphocytes # 0.1 L (1.0-4.8) k/uL Glucose 106 H (74-99) mg/dL Calcium 8.2 L (8.4-10.2) mg/dL AST 49 H (14-36) U/L Total Protein 6.2 L (6.3-8.2) g/dL Albumin 3.3 L (3.5-5.0) g/dL Microbiology - Last 24 Hours (Table) 03/05/19 15:10 Group A Strep Throat Culture - Preliminary Throat Thrombosis Risk Factor Assmnt - DVT/VTE Prophylaxis DVT/VTE Prophylaxis: Pharmacologic Prophylaxis ordered Assessment and Plan Assessment: Intractable nausea and vomiting and throat pain likely due to radiation related esophagitis. Postnasal drip with possible acute sinusitis. Metastatic breast cancer to bones and liver. Currently completed radiation therapy. Patient is also on oral chemotherapy. Chills without any reported fever History of breast cancer was a diagnosis in 1997 Previous history of smoking and emphysematous changes in the lungs. Hypertension Hyperlipidemia History of CVA with mild left-sided weakness DVT prophylaxis plan: Patient will be continued on IV hydration with normal saline. Symptomatic management for nausea vomiting and GI prophylaxis with Zantac IV twice a day. Pain management will be continued. Also will start on breathing treatments in the form of DuoNeb's. We will consider empiric antibiotics. Follow-up culture reports. Oncology will be consulted. Otherwise continue the current management and further recommendations based on the clinical course. Prognosis is poor at this time. Time with Patient: Greater than 30
[2019-03-06] MEDS: LEVOFLOXACIN 500MG-D5W PMX 500 MG in DEXTROSE/WATER 1 100ML.BAG IVPB SCH (16:05)
[2019-03-06 18:44] LABS: Appearance,Urine Cloudy (Clear); Bilirubin,Urine Negative (Negative); Blood,Urine Small (Negative); Color,Urine Yellow; Glucose,Urine (UA) Negative (Negative); Ketones,Urine Negative (Negative); Leukocyte Esterase,Urine Small (Negative); Mucus,Urine Few /hpf; Nitrite,Urine Negative (Negative); PH, Urine 6.5 (5.0-8.0); Protein,Urine 1+ (Negative); RBC,Urine 3 /hpf (0-5); Specific Gravity,Urine 1.024 (1.001-1.035); Squamous Epithelial Cell,Urine 2 /hpf (0-4)
[2019-03-06] MEDS ORDERED: ALBUTEROL NEBULIZED 2.5 MG/3 ML INHALATION PRN (19:46)
[2019-03-06] MEDS ORDERED: DICYCLOMINE 10 MG CAP PO PRN (19:48)
[2019-03-06] MEDS: ATORVASTATIN 40 MG TAB PO SCH (22:01)
[2019-03-06] MEDS: SCOPOLAMINE 1.5MG/72HR PATCH TRANSDERM SCH (22:01)
[2019-03-06] MEDS: ACYCLOVIR 200 MG CAP PO SCH (22:01)
[2019-03-06] MEDS: FAMOTIDINE 20 MG/2 ML VIAL IV SCH (22:02)
[2019-03-06] MEDS: GABAPENTIN 300 MG CAP PO SCH (22:02)
[2019-03-06] MEDS: TRIAMCINOLONE 0.1% CREAM 80 GM TUBE TOPICAL SCH (22:03)
[2019-03-07] MEDS: IPRATROPIUM-ALBUTEROL 3 ML NEB INHALATION SCH ×4 (07:58→20:00)
[2019-03-07] MEDS: ACYCLOVIR 200 MG CAP PO SCH ×2 (08:27→20:32)
[2019-03-07] MEDS: ASPIRIN 81 MG PO SCH (08:27)
[2019-03-07] MEDS: HYDROcodone/APAP 7.5-325MG 1 EACH TAB PO PRN ×2 (08:27→17:17)
[2019-03-07] MEDS: FAMOTIDINE 20 MG/2 ML VIAL IV SCH ×2 (08:28→20:32)
[2019-03-07] MEDS: PANTOPRAZOLE 40 MG TABLET PO SCH (08:28)
[2019-03-07] MEDS: FLUTICASONE 50MCG/SPRAY NASAL 16GM EA NOSTRIL SCH (08:28)
[2019-03-07] MEDS: LORATADINE 10 MG TAB PO SCH (08:28)
[2019-03-07] MEDS: FUROSEMIDE 40 MG TAB PO SCH (08:28)
[2019-03-07] MEDS: SENNOSIDES 8.6 MG TAB PO SCH ×2 (08:28→20:32)
[2019-03-07] MEDS: DILTIAZEM CD 180 MG CAP.ER.24H PO SCH (08:28)
[2019-03-07] MEDS: TRIAMCINOLONE 0.1% CREAM 80 GM TUBE TOPICAL SCH ×2 (08:29→20:39)
[2019-03-07] MEDS: SODIUM CHLORIDE 0.9% 1,000 ML IV SCH ×2 (08:29→22:23)
[2019-03-07 08:30] LABS: HCT 26.9 % (34.0-46.0); HGB 9.4 gm/dL (11.4-16.0); MCH 36.8 pg (25.0-35.0); MCHC 34.8 g/dL (31.0-37.0); MCV 105.7 fL (80.0-100.0); Macrocytosis Moderate; Mean Platelet Volume 10.2; RBC 2.55 m/uL (3.80-5.40); RDW 14.1 % (11.5-15.5)
[2019-03-07] MEDS: POTASSIUM CHLORIDE ER 20 MEQ TAB.ER PO SCH (08:44)
[2019-03-07 08:56] LABS: Platelet Count 57 k/uL (150-450); WBC 0.9 k/uL (3.8-10.6)
--- NOTE | 2019-03-07 14:11 | FL ---
EXAMINATION TYPE: FL barium swallow w video DATE OF EXAM: 03/07/2019 MODIFIED SWALLOW / DEGLUTITION STUDY CLINICAL HISTORY: Dysphagia. Currently undergoing treatment for metastatic breast cancer to bone. TECHNIQUE: Deglutition study is performed utilizing thin liquid barium, honey and nectar thick liqui d barium, barium thick applesauce, and barium coated cracker. A total of 35 seconds of fluoroscopic t cliff was utilized. 0 spot images are saved to PACS. COMPARISON: None. FINDINGS: The oral and pharyngeal phases show satisfactory initiation and propagation with all modali ties tested. Satisfactory mastication is seen with solid modalities tested. There is no evidence of penetration or aspiration with any modality tested. No significant pharyngeal residue was appreciate d. IMPRESSION: Normal deglutition study. Please refer to speech therapist notes for further details if necessary.
[2019-03-07] MEDS: LEVOFLOXACIN 500MG-D5W PMX 500 MG in DEXTROSE/WATER 1 100ML.BAG IVPB SCH (14:24)
[2019-03-07] MEDS: FILGRASTIM-SNDZ 480 MCG/0.8 ML SYRINGE SQ SCH (14:24)
--- NOTE | 2019-03-07 16:44 | P.PN ---
Subjective Progress Note Date: 03/07/19 Principal diagnosis: Radiation induced dysphagia COmpleted bedside swallow with difficulty therefore sent for barium swallow. Radiation burn same, chills and subjective fevers improved. Her ANC and WBC has decreased and added granix today Objective - Vital Signs Vital signs: Vital Signs Temp 98.0 F 03/07/19 14:10 Pulse 92 03/07/19 16:09 Resp 19 03/07/19 07:37 BP 125/76 03/07/19 14:10 Pulse Ox 96 03/07/19 14:10 Intake & Output 03/06/19 03/07/19 03/07/19 18:59 06:59 18:59 Intake Total 850 Balance 850 Weight 141.974 kg Intake: Intake, IV Titration 850 Amount Sodium Chloride 0.9% 1, 850 000 ml @ 75 mls/hr IV . [id number] [facility] Rx#:[id number] Other: Voiding Method Toilet Toilet # Voids 1 2 3 - Exam General: Alert and Oriented x3, No Acute Distress Head: Normocytic, Atraumatic Neck: Supple Mouth: No Lesions, No Thrush Eyes: Non-sclerotic No Palpable cervical, supraclavicular, axillary adenopathy Heart: Regular Rate, Regular Rhythm Lungs: Clear to Ausculations, No Wheeze, No Rhonchi, Diminishe bilateral lower lobes, No increased respiratory effort noted Abdomen: Soft, Non-Distended, Non-Tended, BSx4 Extremities: No Edema, Equal Strength Neurological: No Focal Defects: No sensory or motor deficits noted Psych: Calm and cooperative Evidence of radiation excoriation posterior thorax erythema and mild edema noted - Labs CBC & Chem 7: 03/07/19 06:54 03/06/19 07:02 Labs: Abnormal Lab Results - Last 24 Hours (Table) 03/06/19 03/06/19 03/07/19 Range/Units 07:02 18:30 06:54 WBC 0.9 L* (3.8-10.6) k/uL RBC 2.55 L (3.80-5.40) m/uL Hgb 9.4 L (11.4-16.0) gm/dL Hct 26.9 L (34.0-46.0) % MCV 105.7 H (80.0-100.0) fL MCH 36.8 H (25.0-35.0) pg Plt Count 57 L (150-450) k/uL CA 15-3 Antigen 114.2 H (0.0-32.3) U/mL CA 27-29 135.7 H (0.0-38.5) U/mL Urine Appearance Cloudy H (Clear) Urine Protein 1+ H (Negative) Urine Blood Small H (Negative) Ur Leukocyte Esterase Small H (Negative) Urine Mucus Few H (None) /hpf Microbiology - Last 24 Hours (Table) 03/06/19 14:50 Blood Culture Gram Stain - Preliminary Blood Blood Culture - Preliminary Coagulase Negative Staph 03/05/19 15:10 Group A Strep Throat Culture - Final Throat 03/06/19 14:50 Blood Culture - Final Blood 03/05/19 14:57 Blood Culture Gram Stain - Preliminary Blood Blood Culture - Preliminary Coagulase Negative Staph Assessment and Plan Plan: Pancytopenia: - Secondary to chemotherapy with ibrance and Radiation - Hold chemotherapy at this time - Monitor S/s Infection - transfuse hemoglobin less than 7, platlets les than 10 - Levaquin - Add Zarxio GCSF Metastatic Breast cancer - Bone - ?Progression - Xgeva, Femara, and Ibrance - Ibrance on hold - XRT to spine recently completed Increased Secretions - Resulting in increased Dysphagia - trial bentyl and scope Shortness of Breath: - CTA negative Radiation Burn Posterior thorax: - Silvadene Neoplastic Related Pain: - Continue current pain regimen - Add bowel protocol.
[2019-03-07] MEDS ORDERED: LETROZOLE 2.5 MG TAB PO SCH (17:00)
[2019-03-07] MEDS: GABAPENTIN 300 MG CAP PO SCH ×2 (17:14→20:38)
[2019-03-07] MEDS: ATORVASTATIN 40 MG TAB PO SCH ×2 (17:15→20:38)
--- NOTE | 2019-03-08 01:15 | P.PN ---
Subjective Progress Note Date: 03/06/19 Principal diagnosis: Intractable nausea and vomiting Recent radiation therapy Patient is 62-year-old female with a known history of metastatic breast cancer to thoracic and lumbar vertebrae and ribs with blastic lesions, hypertension, hyperlipidemia and history of CVA TIA with some left-sided weakness came to ER with complaints of nausea vomiting and unable to tolerate oral diet. Patient has completed radiation therapy recently and has been having throat pain and unable to tolerate oral diet. Patient also complaining of shortness of breath and sinus congestion as well as postnasal drip which has been bothering a lot. Denied any complaints of fever but patient does have chills. Patient is also on oral chemotherapy. Patient was breast Cance was initially diagnosed in 1997 and has recurrence last year. Patient has metastatic lesions to bones. No complaints of dysuria or hematuria. Chest x-ray showed mild cardiomegaly without acute pulmonary process. No signal change from prior. CT angiogram of the chest showed no evidence of pulmonary embolism. 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 There is progression of the blastic changes compared to old computed tomography scan of 06/15/2018. Subtle small areas of mixed density in the liver could relate to metastatic disease. Mild pulmonary emphysema. Mild scarring at the lung bases. EKG showed sinus rhythm. WBC 1.6 and platelets 60,000 Hemoglobin 11.3 Strep throat negative. 03/06/2019 Patient is still having some nausea and sore throat. Patient also complaining of chills. Empiric antibiotics in the form of Levaquin was started. Follow-up culture reports. Patient is tolerating liquid diet will be advanced as tolerated. Oncology is on board. Continue with IV hydration. Denied any complaints of fever or chills. WBC count is 1.1 today. Hemoglobin 10.4 Current medications reviewed. Objective - Vital Signs Vital signs: Vital Signs Temp 98.5 F 03/06/19 14:04 Pulse 102 H 03/06/19 14:04 Resp 16 03/06/19 14:04 BP 145/83 03/06/19 14:04 Pulse Ox 96 03/06/19 14:04 Intake & Output 03/05/19 03/06/19 03/06/19 18:59 06:59 18:59 Intake Total 150 Balance 150 Weight 141.974 kg 141.974 kg Intake: Intake, IV Titration 150 Amount Sodium Chloride 0.9% 1, 150 000 ml @ 75 mls/hr IV . [id number] REPLACED BY [facility] Rx#:[id number] Other: Voiding Method Toilet # Voids 1 1 - Exam PHYSICAL EXAMINATION: Patient is lying in the bed comfortably, mild distress, awake alert and oriented.. HEENT: Normocephalic. Neck is supple. Pupils reactive. Nostrils clear. Oral cavity is moist. Ears reveal no drainage. Neck reveals no JVD, carotid bruits, or thyromegaly. CHEST EXAMINATION: Trachea is central. Patient does have red skinrash on the upper chest and upper back due to recent radiation. Symmetrical expansion. Bibasilar diminished air entry. Lung chiang clear to auscultation and percussion. CARDIAC: Normal S1, S2 with no gallops. No murmurs ABDOMEN: Soft. Bowel sounds normal. No organomegaly. No abdominal bruits. Extremities: reveal no edema. No clubbing or cyanosis Neurologically awake, alert, oriented x3 with well-coordinated movements. No focal deficits noted Skin: No rash or skin lesions. Psychiatric: Coperative. Nonsuicidal Musculoskeletal: No joint swelling or deformity. Normal range of motion. - Labs CBC & Chem 7: 03/07/19 06:54 03/06/19 07:02 Labs: Abnormal Lab Results - Last 24 Hours (Table) 03/05/19 03/05/19 03/06/19 Range/Units 14:53 14:53 07:02 WBC 1.6 L 1.1 L* (3.8-10.6) k/uL RBC 3.27 L 2.91 L (3.80-5.40) m/uL Hgb 10.4 L (11.4-16.0) gm/dL Hct 30.6 L (34.0-46.0) % MCV 104.3 H 105.1 H (80.0-100.0) fL MCH 36.4 H 35.7 H (25.0-35.0) pg Plt Count 60 L 54 L (150-450) k/uL Neutrophils # (Manual) 0.90 L (1.3-7.7) k/uL Lymphocytes # 0.1 L (1.0-4.8) k/uL Lymphocytes # (Manual) 0.08 L (1.0-4.8) k/uL Sodium (137-145) mmol/L Glucose 106 H (74-99) mg/dL Calcium 8.2 L (8.4-10.2) mg/dL AST 49 H (14-36) U/L Total Protein 6.2 L (6.3-8.2) g/dL Albumin 3.3 L (3.5-5.0) g/dL 03/06/19 Range/Units 07:02 WBC (3.8-10.6) k/uL RBC (3.80-5.40) m/uL Hgb (11.4-16.0) gm/dL Hct (34.0-46.0) % MCV (80.0-100.0) fL MCH (25.0-35.0) pg Plt Count (150-450) k/uL Neutrophils # (Manual) (1.3-7.7) k/uL Lymphocytes # (1.0-4.8) k/uL Lymphocytes # (Manual) (1.0-4.8) k/uL Sodium 136 L (137-145) mmol/L Glucose (74-99) mg/dL Calcium 7.9 L (8.4-10.2) mg/dL AST 49 H (14-36) U/L Total Protein 5.4 L (6.3-8.2) g/dL Albumin 2.8 L (3.5-5.0) g/dL Microbiology - Last 24 Hours (Table) 03/05/19 14:57 Blood Culture - Final Blood 03/05/19 15:10 Group A Strep Throat Culture - Preliminary Throat Assessment and Plan Assessment: Intractable nausea and vomiting and throat pain likely due to radiation related esophagitis. Anemia and neutropenia secondary to chemotherapy Postnasal drip with possible acute sinusitis. Metastatic breast cancer to bones and liver. Currently completed radiation therapy. Patient is also on oral chemotherapy. Chills without any reported fever History of breast cancer was a diagnosis in 1997 Previous history of smoking and emphysematous changes in the lungs. Hypertension Hyperlipidemia History of CVA with mild left-sided weakness DVT prophylaxis plan: Patient will be continued on IV hydration with normal saline. Symptomatic management for nausea vomiting and GI prophylaxis with Zantac IV twice a day. Pain management will be continued. Also will start on breathing treatments in the form of DuoNeb's. We will consider empiric antibiotics. Follow-up culture reports. Oncology will be consulted. Otherwise continue the current management and further recommendations based on the clinical course. Prognosis is poor at this time. Time with Patient: Greater than 30
--- NOTE | 2019-03-08 01:18 | P.PN ---
Subjective Progress Note Date: 03/07/19 Principal diagnosis: Intractable nausea and vomiting Recent radiation therapy Patient is 62-year-old female with a known history of metastatic breast cancer to thoracic and lumbar vertebrae and ribs with blastic lesions, hypertension, hyperlipidemia and history of CVA TIA with some left-sided weakness came to ER with complaints of nausea vomiting and unable to tolerate oral diet. Patient has completed radiation therapy recently and has been having throat pain and unable to tolerate oral diet. Patient also complaining of shortness of breath and sinus congestion as well as postnasal drip which has been bothering a lot. Denied any complaints of fever but patient does have chills. Patient is also on oral chemotherapy. Patient was breast Cance was initially diagnosed in 1997 and has recurrence last year. Patient has metastatic lesions to bones. No complaints of dysuria or hematuria. Chest x-ray showed mild cardiomegaly without acute pulmonary process. No signal change from prior. CT angiogram of the chest showed no evidence of pulmonary embolism. 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 There is progression of the blastic changes compared to old computed tomography scan of 06/15/2018. Subtle small areas of mixed density in the liver could relate to metastatic disease. Mild pulmonary emphysema. Mild scarring at the lung bases. EKG showed sinus rhythm. WBC 1.6 and platelets 60,000 Hemoglobin 11.3 Strep throat negative. 03/06/2019 Patient is still having some nausea and sore throat. Patient also complaining of chills. Empiric antibiotics in the form of Levaquin was started. Follow-up culture reports. Patient is tolerating liquid diet will be advanced as tolerated. Oncology is on board. Continue with IV hydration. Denied any complaints of fever or chills. WBC count is 1.1 today. Hemoglobin 10.4 03/07/2019 Patient does have some difficulty in swallowing. Barium swallow evaluation was done showed normal deglutition. Otherwise patient is tolerating oral diet and is being advanced. Still complaining of sore throat which is improving. Silvadene was applied for the radiation burn on the chest and back. Continued on symptomatic management for nausea and vomiting. IV hydration. Currently on antibiotics the form of Levaquin. Blood cultures are growing coagulase-negative staph aureus which is contaminant sample.. Oncology is following. Current medications reviewed. Objective - Vital Signs Vital signs: Vital Signs Temp 98.0 F 03/07/19 14:10 Pulse 92 03/07/19 16:09 Resp 19 03/07/19 07:37 BP 125/76 03/07/19 14:10 Pulse Ox 96 03/07/19 14:10 Intake & Output 03/06/19 03/07/19 03/07/19 18:59 06:59 18:59 Intake Total 850 Balance 850 Weight 141.974 kg Intake: Intake, IV Titration 850 Amount Sodium Chloride 0.9% 1, 850 000 ml @ 75 mls/hr IV . [id number] [facility] Rx#:[id number] Other: Voiding Method Toilet Toilet # Voids 1 2 3 - Exam PHYSICAL EXAMINATION: Patient is lying in the bed comfortably, mild distress, awake alert and oriented.. HEENT: Normocephalic. Neck is supple. Pupils reactive. Nostrils clear. Oral cavity is moist. Ears reveal no drainage. Neck reveals no JVD, carotid bruits, or thyromegaly. CHEST EXAMINATION: Trachea is central. Patient does have red skinrash on the upper chest and upper back due to recent radiation. Symmetrical expansion. Bibasilar diminished air entry. Lung chiang clear to a uscultation and percussion. CARDIAC: Normal S1, S2 with no gallops. No murmurs ABDOMEN: Soft. Bowel sounds normal. No organomegaly. No abdominal bruits. Extremities: reveal no edema. No clubbing or cyanosis Neurologically awake, alert, oriented x3 with well-coordinated movements. No focal deficits noted Skin: No rash or skin lesions. Psychiatric: Coperative. Nonsuicidal Musculoskeletal: No joint swelling or deformity. Normal range of motion. - Labs CBC & Chem 7: 03/07/19 06:54 03/06/19 07:02 Labs: Abnormal Lab Results - Last 24 Hours (Table) 03/06/19 03/07/19 Range/Units 07:02 06:54 WBC 0.9 L* (3.8-10.6) k/uL RBC 2.55 L (3.80-5.40) m/uL Hgb 9.4 L (11.4-16.0) gm/dL Hct 26.9 L (34.0-46.0) % MCV 105.7 H (80.0-100.0) fL MCH 36.8 H (25.0-35.0) pg Plt Count 57 L (150-450) k/uL CA 15-3 Antigen 114.2 H (0.0-32.3) U/mL CA 27-29 135.7 H (0.0-38.5) U/mL Microbiology - Last 24 Hours (Table) 03/06/19 14:50 Blood Culture Gram Stain - Preliminary Blood Blood Culture - Preliminary Coagulase Negative Staph 03/05/19 15:10 Group A Strep Throat Culture - Final Throat 03/06/19 14:50 Blood Culture - Final Blood 03/05/19 14:57 Blood Culture Gram Stain - Preliminary Blood Blood Culture - Preliminary Coagulase Negative Staph Assessment and Plan Assessment: Intractable nausea and vomiting and throat pain likely due to radiation related esophagitis. Pancytopenia secondary to chemotherapy Postnasal drip with possible acute sinusitis. Coagulase-negative bacteremia. Metastatic breast cancer to bones and liver. Currently completed radiation therapy. Patient is also on oral chemotherapy. Chills without any reported fever History of breast cancer was a diagnosis in 1997 Previous history of smoking and emphysematous changes in the lungs. Hypertension Hyperlipidemia History of CVA with mild left-sided weakness DVT prophylaxis plan: Patient will be continued on IV hydration with normal saline. Empiric antivirals the form of Levaquin. Symptomatic management for nausea vomiting and GI prophylaxis with Zantac IV twice a day. Pain management will be continued. Also will start on breathing treatments in the form of DuoNeb's. Follow-up culture reports. Oncology will be consulted. Otherwise continue the current management and further recommendations based on the clinical course. Prognosis is poor at this time. Time with Patient: Greater than 30
[2019-03-08 07:20] LABS: HCT 28.1 % (34.0-46.0); HGB 9.8 gm/dL (11.4-16.0); MCH 36.5 pg (25.0-35.0); MCHC 34.7 g/dL (31.0-37.0); MCV 105.5 fL (80.0-100.0); Macrocytosis Moderate; Mean Platelet Volume 9.6; RBC 2.67 m/uL (3.80-5.40); WBC 1.6 k/uL (3.8-10.6)
[2019-03-08 07:41] LABS: African American GFR (CKD) >90 (>60 ml/min/1.73 sqM); Albumin 2.7 g/dL (3.5-5.0); Anion Gap 7 mmol/L; Blood Urea Nitrogen 11 mg/dL (7-17); Calcium 7.6 mg/dL (8.4-10.2); Carbon Dioxide 26 mmol/L (22-30); Chloride 106 mmol/L (98-107); Glucose 101 mg/dL (74-99); Sodium 139 mmol/L (137-145); Total Protein 5.4 g/dL (6.3-8.2)
[2019-03-08] MEDS: PANTOPRAZOLE 40 MG TABLET PO SCH (07:45)
[2019-03-08] MEDS: ACYCLOVIR 200 MG CAP PO SCH ×2 (07:45→20:59)
[2019-03-08] MEDS: ASPIRIN 81 MG PO SCH (07:45)
[2019-03-08] MEDS: DILTIAZEM CD 180 MG CAP.ER.24H PO SCH (07:46)
[2019-03-08] MEDS: POTASSIUM CHLORIDE ER 20 MEQ TAB.ER PO SCH (07:46)
[2019-03-08] MEDS: TRIAMCINOLONE 0.1% CREAM 80 GM TUBE TOPICAL SCH ×2 (07:46→20:59)
[2019-03-08 07:47] LABS: ALT 49 U/L (9-52); AST 67 U/L (14-36); Alkaline Phosphatase 50 U/L (38-126); Potassium 3.9 mmol/L (3.5-5.1)
[2019-03-08] MEDS: HYDROcodone/APAP 7.5-325MG 1 EACH TAB PO PRN ×2 (07:47→16:25)
[2019-03-08] MEDS: FAMOTIDINE 20 MG/2 ML VIAL IV SCH ×2 (07:47→20:58)
[2019-03-08] MEDS: FLUTICASONE 50MCG/SPRAY NASAL 16GM EA NOSTRIL SCH (07:48)
[2019-03-08 07:49] LABS: Platelet Count 79 k/uL (150-450)
[2019-03-08] MEDS: LORATADINE 10 MG TAB PO SCH (07:49)
[2019-03-08] MEDS: FUROSEMIDE 40 MG TAB PO SCH (07:52)
[2019-03-08] MEDS: FILGRASTIM-SNDZ 480 MCG/0.8 ML SYRINGE SQ SCH (07:52)
[2019-03-08] MEDS: IPRATROPIUM-ALBUTEROL 3 ML NEB INHALATION SCH ×4 (08:50→20:17)
[2019-03-08] MEDS: SODIUM CHLORIDE 0.9% 1,000 ML IV SCH (12:33)
[2019-03-08 12:44] LABS: Band Neutrophils % 1 %; Lymphocytes # (M) 0.05 k/uL (1.0-4.8); Monocytes # (M) 0.13 k/uL (0-1.0); Neutrophils % (M) 88 %; Nucleated Red Blood Cells 0 /100 WBC (0-0); Total Cells Counted 100
[2019-03-08 12:45] LABS: Poikilocytosis (M) Present
--- NOTE | 2019-03-08 13:35 | P.PN ---
Subjective Patient is 62-year-old female with a known history of metastatic breast cancer to thoracic and lumbar vertebrae and ribs with blastic lesions, hypertension, hyperlipidemia and history of CVA TIA with some left-sided weakness came to ER with complaints of nausea vomiting and unable to tolerate oral diet. Patient has completed radiation therapy recently and has been having throat pain and unable to tolerate oral diet. Patient also complaining of shortness of breath and sinus congestion as well as postnasal drip which has been bothering a lot. Denied any complaints of fever but patient does have chills. Patient is also on oral chemotherapy. Patient was breast Cance was initially diagnosed in 1997 and has recurrence last year. Patient has metastatic lesions to bones. No complaints of dysuria or hematuria. Chest x-ray showed mild cardiomegaly without acute pulmonary process. No signal change from prior. CT angiogram of the chest showed no evidence of pulmonary embolism. Osteoblastic metastatic disease in the bony thorax. There is progression of the blastic changes compared to old computed tomography scan of 06/15/2018. Subtle small areas of mixed density in the liver could relate to metastatic disease. Mild pulmonary emphysema. Mild scarring at the lung bases. EKG showed sinus rhythm. WBC 1.6 and platelets 60,000 Hemoglobin 11.3 Strep throat negative. 03/06/2019 Patient is still having some nausea and sore throat. Patient also complaining of chills. Empiric antibiotics in the form of Levaquin was started. Follow-up culture reports. Patient is tolerating liquid diet will be advanced as tolerated. Oncology is on board. Continue with IV hydration. Denied any complaints of fever or chills. WBC count is 1.1 today. Hemoglobin 10.4 03/07/2019 Patient does have some difficulty in swallowing. Barium swallow evaluation was done showed normal deglutition. Otherwise patient is tolerating oral diet and is being advanced. Still complaining of sore throat which is improving. Silvadene was applied for the radiation burn on the chest and back. Continued on symptomatic management for nausea and vomiting. IV hydration. Currently on antibiotics the form of Levaquin. Blood cultures are growing coagulase-negative staph aureus which is contaminant sample.. Oncology is following. 03/08/2019 Patient is fully awake and oriented. She denies chest pain. However she still have some dry cough and dyspnea especially on exertion. She is on regular diet but she took only a couple sews this morning, she is still having some nausea and she vomited once this morning. She denies abdominal pain. However she is constipated and she is taken Madison. Her burn on the back of the neck is looks his stable. Local treatment is applied. She's Vitas looks stable. showing pancytopenia but is improving with WBC up to 1.6, hemoglobin 9.8 and platelets 79. She has ptosis of positive blood cultures with coagulase-negative staph. ID team were consulted Review of systems CONSTITUTIONAL: No fever, no malaise, no fatigue. HEENT: No recent visual problems or hearing problems. Denied any sore throat. CARDIOVASCULAR: No orthopnea, PND, no palpitations, no syncope. PULMONARY:no hemoptysis. GASTROINTESTINAL: No diarrhea, no nausea, no vomiting, no abdominal pain. Normoactive bowel sounds. NEUROLOGICAL: No headaches, no weakness, no numbness. HEMATOLOGICAL: Denies any bleeding or petechiae. GENITOURINARY: Denies any burning micturition, frequency, or urgency. MUSCULOSKELETAL/RHEUMATOLOGICAL: Denies any joint pain, swelling, or any muscle pain. ENDOCRINE: Denies any polyuria or polydipsia. Medications: Acyclovir 400 mg, albuterol 0.5 mg, aspirin 162 mg, Lipitor 40 mg, Bentyl 10 mg, Cardizem 180 mg, Pepcid 20 mg, filgrastim 480 g, Flonase nasal spray, Lasix 40 mg, Neurontin 6 mg, Madison 7.5-325 mg, LOTROZOL 2.5 mg, Levaquin 500 mg, Claritin 10 mg, Zofran 4 mg, Protonix 40, aquafor topical, potassium chloride 20 mEq, scopolamine patch, Senokot 8.6 kg, silver sulfur the typical, normal saline at 75 mm/h, Objective - Vital Signs Vital signs: Vital Signs Temp 98.4 F 03/08/19 07:08 Pulse 96 03/08/19 12:46 Resp 18 03/08/19 07:19 BP 128/64 03/08/19 07:08 Pulse Ox 93 L 03/08/19 07:08 Intake & Output 03/07/19 03/08/19 03/08/19 18:59 06:59 18:59 Intake Total 150 Balance 150 Intake: Intake, IV Titration 150 Amount Sodium Chloride 0.9% 1, 150 000 ml @ 75 mls/hr IV . [id number] [facility] Rx#:[id number] Other: Voiding Method Toilet Toilet Toilet # Voids 3 1 1 - Exam GENERAL: The patient is alert and oriented x3, not in any acute distress. Obese HEENT: Pupils are round and equally reacting to light. EOMI. No scleral icterus. No conjunctival pallor. Normocephalic, atraumatic. No pharyngeal erythema. No thyromegaly. CARDIOVASCULAR: S1 and S2 present. No murmurs, rubs, or gallops. PULMONARY: Chest is clear to auscultation, no wheezing or crackles. ABDOMEN: Soft, nontender, nondistended, normoactive bowel sounds. No palpable organomegaly. MUSCULOSKELETAL: No joint swelling or deformity. EXTREMITIES: No cyanosis, clubbing, or pedal edema. NEUROLOGICAL: Gross neurological examination did not reveal any focal deficits. -SKIN: No rashes. Area of erythema on the back of the neck - Labs CBC & Chem 7: 03/08/19 06:40 03/08/19 06:40 Labs: Abnormal Lab Results - Last 24 Hours (Table) 03/08/19 03/08/19 Range/Units 06:40 06:40 WBC 1.6 L (3.8-10.6) k/uL RBC 2.67 L (3.80-5.40) m/uL Hgb 9.8 L (11.4-16.0) gm/dL Hct 28.1 L (34.0-46.0) % MCV 105.5 H (80.0-100.0) fL MCH 36.5 H (25.0-35.0) pg Plt Count 79 L (150-450) k/uL Lymphocytes # (Manual) 0.05 L (1.0-4.8) k/uL Glucose 101 H (74-99) mg/dL Calcium 7.6 L (8.4-10.2) mg/dL AST 67 H (14-36) U/L Total Protein 5.4 L (6.3-8.2) g/dL Albumin 2.7 L (3.5-5.0) g/dL Microbiology - Last 24 Hours (Table) 03/06/19 14:50 Blood Culture Gram Stain - Preliminary Blood Blood Culture - Preliminary Coagulase Negative Staph 03/05/19 15:10 Group A Strep Throat Culture - Final Throat Assessment and Plan Assessment: Intractable nausea and vomiting and throat pain likely due to radiation related esophagitis. Pancytopenia secondary to chemotherapy Postnasal drip with possible acute sinusitis. Coagulase-negative bacteremia. Metastatic breast cancer to bones and liver. Currently completed radiation therapy. Patient is also on oral chemotherapy. Chills without any reported fever History of breast cancer was a diagnosis in 1997 Previous history of smoking and emphysematous changes in the lungs. Hypertension Hyperlipidemia History of CVA with mild left-sided weakness Plan: This is a pleasant 63 years old female who presents because of radiation-induced dysphagia with pancytopenia and positive blood culture. Continue with support carlyn treatment and IV hydration. Continue with antibiotics. ID team consult. Monitor blood cells while patient is on filgstrim, follow-up recommendations of hematology oncology and ID team.Labs and medication were reviewed.. Continue same treatment. Continue with symptomatic treatment. Resume home medication. Monitor lytes and vitals. DVT and GI prophylaxis. Further recommendations of the clinical course of the patient DVT prophylaxis: Subcutaneous heparin, heparin can be started since her platelet count is improved significantly to 79. GI Prophylaxis: Pepcid PT/OT: Pending Prognosis is guarded
[2019-03-08] MEDS: LEVOFLOXACIN 500MG-D5W PMX 500 MG in DEXTROSE/WATER 1 100ML.BAG IVPB SCH (16:24)
[2019-03-08] MEDS: LETROZOLE 2.5 MG TAB PO SCH (16:26)
[2019-03-08] MEDS: GABAPENTIN 300 MG CAP PO SCH (16:26)
[2019-03-08] MEDS ORDERED: VANCOMYCIN IV PER PHARMACY 1 EACH MISC MISCELLANE PRN (16:52)
[2019-03-08] MEDS: SUCRALFATE 1 GM TAB PO SCH ×2 (18:06→20:59)
[2019-03-08] MEDS: VANCOMYCIN 2,000 MG in SODIUM CHLORIDE 0.9% 500 ML 500 ML IVPB SCH (18:08)
[2019-03-08] MEDS: HEPARIN SODIUM,PORCINE 5,000 UNIT/ML 1 ML VIAL SQ SCH (20:58)
[2019-03-08] MEDS: ATORVASTATIN 40 MG TAB PO SCH (20:59)
[2019-03-08] MEDS ORDERED: SENNOSIDES 8.6 MG TAB PO STA (21:04)
--- NOTE | 2019-03-08 23:33 | P.CONS ---
History of Present Illness - Reason for Consult Consult date: 03/08/19 - Chief Complaint difficulty swallowing - History of Present Illness Pleasant 63-year-old female is a complex past medical history regarding her breast carcinoma. 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 Because of increasing pain and neurological difficulties she was evaluated is now receiving radiation therapy to the cervical and thoracic spine. 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 She had increasing difficulties trying to ingest any foods or fluids. Should he feel very poorly and constantly present emergency center. She's having treated with some pain medication and topical therapies and is feeling somewhat better. With several positive blood cultures the infectious diseases consultation was requested. The patient thinks she may have had a fever but is certain he has not persistent at this time. She does feel very poorly but better today than 24 hours ago. Review of Systems HEENT:Denies headache or acute visual change. Denies sinus or mouth discomforts. Denies neck stiffness or pain. has difficulty with the oral cav ity was some with discomfort, distinct difficulty with swallowing due to pain Lungs: has only mild shortness of breath minimal cough minimal sputum production no hemopty Cardiovascular: Denies chest pain, chest wall pain, orthopnea, dyspnea on exertion, syncope Gastrointestinal:Denies nausea, vomiting, diarrhea, hematemesis, melena, hematochezia. relates with current pain medication has developed some constipation Musculoskeletal: denies significant myalgias or arthralgias. No new joint swe lling. Denies new back pain. Skin: As per the HPI his the significant areas of radiation dermatitis both anterior and posterior in the thorax Neuro: Denies headache or visual change. Denies any new onset weakness or difficulty with ambulation. Denies falls or seizures. Psychiatric:Denies anxiety or depression. Endocrine: has significant fatigue and does have weight loss of 30 pounds Past Medical History Past Medical History: Cancer, CVA/TIA, Hyperlipidemia, Hypertension Additional Past Medical History / Comment(s): hx CVA left side 2017, Left breast cancer 1997, spine cancer 2017 History of Any Multi-Drug Resistant Organisms: None Reported Past Surgical History: Breast Surgery, Hysterectomy, Joint Replacement Additional Past Surgical History / Comment(s): left knee replacement, several breast biopsies Past Anesthesia/Blood Transfusion Reactions: No Reported Reaction Past Psychological History: No Psychological Hx Reported Additional Psychological History / Comment(s): marriedRetired. No experience. No international travelNo animal exposures Smoking Status: Former smoker Past Alcohol Use History: Rare Past Drug Use History: None Reported Medications and Allergies Home Medications and Allergies Comment(s): Current Medications Hydrocodone Bitart/Acetaminophen ([place] 7.5-325) 1 each PO Q8H PRN PRN Reason: Pain Last Admin: 03/08/19 16:25 Dose: 1 each Documented by: Acyclovir (Zovirax) 400 mg PO BID [facility] Last Admin: 03/08/19 20:59 Dose: 400 mg Documented by: Albuterol Sulfate (Ventolin Nebulized) 2.5 mg INHALATION RT-QID PRN PRN Reason: Shortness Of Breath Albuterol/Ipratropium (Duoneb 0.5 Mg-3 Mg/3 Ml Soln) 3 ml INHALATION RT-QID [facility] Last Admin: 03/08/19 20:17 Dose: 3 ml Documented by: Albuterol/Ipratropium (Duoneb 0.5 Mg-3 Mg/3 Ml Soln) 3 ml INHALATION RT-Q4H PRN PRN Reason: Shortness Of Breath Or Wheezing Aspirin (Aspirin) 162 mg PO DAILY [facility] Last Admin: 03/08/19 07:45 Dose: 162 mg Documented by: Atorvastatin Calcium (Lipitor) 40 mg PO HS [facility] Last Admin: 03/08/19 20:59 Dose: 40 mg Documented by: Dicyclomine HCl (Bentyl) 10 mg PO TID PRN PRN Reason: Dyspepsia Last Admin: 03/07/19 14:25 Dose: 10 mg Documented by: Diltiazem HCl (Cardizem Cd) 180 mg PO DAILY [facility] Last Admin: 03/08/19 07:46 Dose: 180 mg Documented by: Famotidine (Pepcid) 20 mg IV Q12HR [facility] Last Admin: 03/08/19 20:58 Dose: 20 mg Documented by: Filgrastim (Zarxio) 480 mcg SQ DAILY [facility] Last Admin: 03/08/19 07:52 Dose: 480 mcg Documented by: Fluticasone Propionate (Flonase Nasal [place]) 1 spray EA NOSTRIL DAILY [facility] Last Admin: 03/08/19 07:48 Dose: 1 spray Documented by: Furosemide (Lasix) 40 mg PO DAILY [facility] Last Admin: 03/08/19 07:52 Dose: 40 mg Documented by: Gabapentin (Neurontin) 600 mg PO DAILY@1700 [facility] Last Admin: 03/08/19 16:26 Dose: 600 mg Documented by: Heparin Sodium (Porcine) (Heparin) 5,000 unit SQ Q12HR [facility] Last Admin: 03/08/19 20:58 Dose: 5,000 unit Documented by: Sodium Chloride (Saline 0.9%) 1,000 mls @ 75 mls/hr IV .[id number] [facility] Last Admin: 03/08/19 12:33 Dose: Not Given Documented by: Vancomycin HCl 2,000 mg/ (Sodium Chloride) 500 mls @ 167 mls/hr IVPB Q12H [facility] Last Admin: 03/08/19 18:08 Dose: 167 mls/hr Documented by: Letrozole (Femara) 2.5 mg PO 1700 [facility] Last Admin: 03/08/19 16:26 Dose: 2.5 mg Documented by: Loratadine (Claritin) 10 mg PO DAILY [facility] Last Admin: 03/08/19 07:49 Dose: 10 mg Documented by: Naloxone HCl (Narcan) 0.2 mg IV Q2M PRN PRN Reason: Opioid Reversal Ondansetron HCl (Zofran) 4 mg IVP Q8HR PRN PRN Reason: Nausea And Vomiting Pantoprazole Sodium (Protonix) 40 mg PO AC-BRKFST [facility] Last Admin: 03/08/19 07:45 Dose: 40 mg Documented by: Petrolatum (Aquaphor) 1 applic TOPICAL BID PRN PRN Reason: Dry Skin Potassium Chloride (K-Dur 20) 20 meq PO DAILY [facility] Last Admin: 03/08/19 07:46 Dose: 20 meq Documented by: Scopolamine (Transderm-Scop 1.5mg/72hr Patch) 1 patch TRANSDERM Q72H [facility] Last Admin: 03/06/19 22:01 Dose: 1 patch Documented by: Senna (Senokot) 8.6 mg PO DAILY [facility] Last Admin: 03/07/19 20:32 Dose: 8.6 mg Documented by: Silver Sulfadiazine (Silvadene Cream) 1 applic TOPICAL BID [facility] Last Admin: 03/08/19 20:59 Dose: 1 applic Documented by: Sucralfate (Carafate) 1 gm PO ACHS [facility] Last Admin: 03/08/19 20:59 Dose: 1 gm Documented by: Triamcinolone Acetonide (Kenalog) 1 applic TOPICAL BID [facility] Last Admin: 03/08/19 20:59 Dose: 1 applic Documented by: Home Medications Medication Instructions Recorded Confirmed Type Aspirin [Adult Low Dose Aspirin [facility]] 162 mg PO DAILY 07/03/18 03/05/19 History Atorvastatin [Lipitor] 40 mg PO HS 07/03/18 03/05/19 History Diltiazem HCl [Diltiazem 24Hr ER] 180 mg PO DAILY 07/03/18 03/05/19 History Albuterol Inhaler [Ventolin Hfa 2 puff INHALATION RT-QID PRN 03/05/19 03/05/19 History Inhaler] Fluticasone Nasal [place] [Flonase 1 spray EA NOSTRIL DAILY 03/05/19 03/05/19 History Nasal [place]] Furosemide [Lasix] 40 mg PO DAILY 03/05/19 03/05/19 History Gabapentin [Neurontin] 300 mg PO DAILY 03/05/19 03/05/19 History Gabapentin [Neurontin] 600 mg PO HS 03/05/19 03/05/19 History Letrozole [Femara] 2.5 mg PO DAILY 03/05/19 03/05/19 History Magic Mouthwash 30 - 60 ml PO QID PRN 03/05/19 03/05/19 History Montelukast [Singulair] 10 mg PO HS 03/05/19 03/05/19 History Omeprazole 20 mg PO DAILY 03/05/19 03/05/19 History Potassium Chloride 20 meq PO DAILY 03/05/19 03/05/19 History Allergies Allergy/AdvReac Type Severity Reaction Status Date / Time No Known Allergies Allergy Verified 03/05/19 14:14 Physical Exam Vitals: Vital Signs Temp Pulse Pulse Resp BP Pulse Ox 03/08/19 20:32 93 03/08/19 20:18 92 03/08/19 16:11 90 03/08/19 15:58 90 03/08/19 15:13 92 15 03/08/19 14:48 98.0 F 92 15 111/68 92 L 03/08/19 12:46 96 03/08/19 12:34 96 03/08/19 09:01 95 03/08/19 08:50 95 03/08/19 07:19 92 18 03/08/19 07:08 98.4 F 106 H 16 128/64 93 L 03/08/19 03:53 18 03/08/19 01:13 98.8 F 92 18 119/73 97 03/08/19 00:00 18 Intake and Output 03/08/19 03/08/19 03/09/19 14:59 22:59 06:59 Intake Total 525 180 Balance 525 180 Intake: Intake, IV Titration 525 Amount Sodium Chloride 0.9% 1, 525 000 ml @ 75 mls/hr IV . [id number] [facility] Rx#:[id number] Oral 180 Other: Voiding Method Toilet Toilet # Voids 2 2 HEENT: Anicteric conjunctiva are pink and moist nasal mucosa grossly intact without significant lesions, there is no thrush. Neck: The neck reveals evidence of some diminished range of motion that is not new, there is evidence of the extensive erythema anterior posterior from the radiation windowless from the recent treatment of the bony metastasis to the spine. Lungs: Good bilateral air entry without significant crackles few wheezes. There is no significant bronchial sounds. There is no egophony or dullness. Heart: Regular rate and rhythm with an audible S1-S2, no S3 no S4. There is no significant murmur click or rub, PMI was nondisplaced. Abdomen:obese Positive bowel sounds soft and nontender without palpable masses or organomegaly. There was no guarding or rebound. Extremities: The upper extremities have excellent pulses they are symmetric, no significant petechiae or telangiectasia. No splinter hemorrhages were noted. The lower extremities are free from significant edema. The peripheral pulses were 2+ and symmetric. Neuro: Awake alert oriented to person place and time. There are no acute new gross focal sensory motor deficits. Results CBC & Chem 7: 03/08/19 06:40 03/08/19 06:40 Labs: Abnormal Lab Results - Last 24 Hours (Table) 03/08/19 03/08/19 Range/Units 06:40 06:40 WBC 1.6 L (3.8-10.6) k/uL RBC 2.67 L (3.80-5.40) m/uL Hgb 9.8 L (11.4-16.0) gm/dL Hct 28.1 L (34.0-46.0) % MCV 105.5 H (80.0-100.0) fL MCH 36.5 H (25.0-35.0) pg Plt Count 79 L (150-450) k/uL Lymphocytes # (Manual) 0.05 L (1.0-4.8) k/uL Glucose 101 H (74-99) mg/dL Calcium 7.6 L (8.4-10.2) mg/dL AST 67 H (14-36) U/L Total Protein 5.4 L (6.3-8.2) g/dL Albumin 2.7 L (3.5-5.0) g/dL Laboratory Results WBC 1.6 k/uL (3.8-10.6) L 03/08/19 06:40 RBC 2.67 m/uL (3.80-5.40) L 03/08/19 06:40 Hgb 9.8 gm/dL (11.4-16.0) L 03/08/19 06:40 Hct 28.1 % (34.0-46.0) L 03/08/19 06:40 MCV 105.5 fL (80.0-100.0) H 03/08/19 06:40 MCH 36.5 pg (25.0-35.0) H 03/08/19 06:40 MCHC 34.7 g/dL (31.0-37.0) 03/08/19 06:40 RDW 14.0 % (11.5-15.5) 03/08/19 06:40 Plt Count 79 k/uL (150-450) L 03/08/19 06:40 Neutrophils % Not Reportable 03/08/19 06:40 Neutrophils % (Manual) 88 % 03/08/19 06:40 Band Neutrophils % 1 % 03/08/19 06:40 Lymphocytes % Not Reportable 03/08/19 06:40 Lymphocytes % (Manual) 3 % 03/08/19 06:40 Monocytes % Not Reportable 03/08/19 06:40 Monocytes % (Manual) 8 % 03/08/19 06:40 Eosinophils % Not Reportable 03/08/19 06:40 Eosinophils % (Manual) 1 % 03/06/19 07:02 Basophils % Not Reportable 03/08/19 06:40 Neutrophils # Not Reportable 03/08/19 06:40 Neutrophils # (Manual) 1.40 k/uL (1.3-7.7) 03/08/19 06:40 Lymphocytes # Not Reportable 03/08/19 06:40 Lymphocytes # (Manual) 0.05 k/uL (1.0-4.8) L 03/08/19 06:40 Monocytes # Not Reportable 03/08/19 06:40 Monocytes # (Manual) 0.13 k/uL (0-1.0) 03/08/19 06:40 Eosinophils # Not Reportable 03/08/19 06:40 Eosinophils # (Manual) 0.01 k/uL (0-0.7) 03/06/19 07:02 Basophils # Not Reportable 03/08/19 06:40 Nucleated RBCs 0 /100 WBC (0-0) 03/08/19 06:40 Differential Comment 03/07/19 06:54 Manual Slide Review Performed 03/08/19 06:40 Polychromasia Present 03/05/19 14:53 Poikilocytosis (manual Present 03/08/19 06:40 Anisocytosis (manual) Present 03/05/19 14:53 Macrocytosis Moderate 03/08/19 06:40 PT 9.9 sec (9.0-12.0) 03/05/19 14:53 INR 0.9 (<1.2) 03/05/19 14:53 APTT 23.9 sec (22.0-30.0) 03/05/19 14:53 Sodium 139 mmol/L (137-145) 03/08/19 06:40 Potassium 3.9 mmol/L (3.5-5.1) 03/08/19 06:40 Chloride 106 mmol/L (98-107) 03/08/19 06:40 Carbon Dioxide 26 mmol/L (22-30) 03/08/19 06:40 Anion Gap 7 mmol/L 03/08/19 06:40 BUN 11 mg/dL (7-17) 03/08/19 06:40 Creatinine 0.65 mg/dL (0.52-1.04) 03/08/19 06:40 Est GFR (CKD-EPI)AfAm >90 (>60 ml/min/1.73 sqM) 03/08/19 06:40 Est GFR (CKD-EPI)NonAf >90 (>60 ml/min/1.73 sqM) 03/08/19 06:40 Glucose 101 mg/dL (74-99) H 03/08/19 06:40 Calcium 7.6 mg/dL (8.4-10.2) L 03/08/19 06:40 Total Bilirubin 1.0 mg/dL (0.2-1.3) 03/08/19 06:40 AST 67 U/L (14-36) H 03/08/19 06:40 ALT 49 U/L (9-52) 03/08/19 06:40 Alkaline Phosphatase 50 U/L (38-126) 03/08/19 06:40 Total Protein 5.4 g/dL (6.3-8.2) L 03/08/19 06:40 Albumin 2.7 g/dL (3.5-5.0) L 03/08/19 06:40 CA 15-3 Antigen 114.2 U/mL (0.0-32.3) H 03/06/19 07:02 CA 27-29 135.7 U/mL (0.0-38.5) H 03/06/19 07:02 Urine Color Yellow 03/06/19 18:30 Urine Appearance Cloudy (Clear) H 03/06/19 18:30 Urine pH 6.5 (5.0-8.0) 03/06/19 18:30 Ur Specific [place] 1.024 (1.001-1.035) 03/06/19 18:30 Urine Protein 1+ (Negative) H 03/06/19 18:30 Urine Glucose (UA) Negative (Negative) 03/06/19 18:30 Urine Ketones Negative (Negative) 03/06/19 18:30 Urine Blood Small (Negative) H 03/06/19 18:30 Urine Nitrite Negative (Negative) 03/06/19 18:30 Urine Bilirubin Negative (Negative) 03/06/19 18:30 Urine Urobilinogen 8.0 mg/dL (<2.0) 03/06/19 18:30 Ur Leukocyte Esterase Small (Negative) H 03/06/19 18:30 Urine RBC 3 /hpf (0-5) 03/06/19 18:30 Urine WBC 5 /hpf (0-5) 03/06/19 18:30 Ur Squamous Epith Cells 2 /hpf (0-4) 03/06/19 18:30 Urine Mucus Few /hpf (None) H 03/06/19 18:30 Group A Strep Rapid Negative (Negative) 03/05/19 15:10 Microbiology 03/06/19 14:50 Blood Blood Culture Gram Stain - Preliminary 03/06/19 14:50 Blood Blood Culture - Preliminary Coagulase Negative Staph 03/05/19 15:10 Throat Group A Strep Throat Culture - Final 03/06/19 14:50 Blood Blood Culture - Final 03/05/19 14:57 Blood Blood Culture Gram Stain - Preliminary 03/05/19 14:57 Blood Blood Culture - Preliminary Coagulase Negative Staph 03/05/19 14:57 Blood Blood Culture - Final Assessment and Plan (1) Nausea and vomiting Current Visit: Yes Status: Acute Code(s): R11.2 - NAUSEA WITH VOMITING, UNSPECIFIED SNOMED Code(s): 30473673 (2) Radiation-induced dermatitis Current Visit: Yes Status: Acute Code(s): L58.9 - RADIODERMATITIS, UNSPECIFIED SNOMED Code(s): 03043381 (3) Metastatic breast carcinoma Current Visit: Yes Status: Acute Code(s): C50.919 - MALIGNANT NEOPLASM OF UNSP SITE OF UNSPECIFIED FEMALE BREAST SNOMED Code(s): 833325936 (4) Gram-positive cocci bacteremia Narrative/Plan: 63-year-old woman presents to hospital with increasing difficulties with eating and drinking, so see was some nausea some minimal amount of emesis increasing fatigue and malaise and increasing pain. The patient believes she Loretta had a fever but this is not been highly persistent throughout the hospital stay. She does have difficulties with radiation dermatitis both anterior and posterior around the spine where she was receiving the therapy for her bony metastasis. Topical therapy with triamcinolone alternating with Silvadene has been requested. She also has difficulties with radiation esophagitis and Carafate be en requested since she is intolerant of the cools solution. Antibiotic therapy as well as vancomycin given the multiple positive blood cultures for gram-positive cocci. However careful analysis reveals that truly would only be 2 cultures that have been noted so far. They've asked for further blood cultures and very careful cleansing of the skin to ensure no contamination. We'll continue antibiotics for now until we have further data. Current Visit: Yes Status: Acute Code(s): R78.81 - BACTEREMIA SNOMED Code(s): 405803173455
[2019-03-09] MEDS: VANCOMYCIN 2,000 MG in SODIUM CHLORIDE 0.9% 500 ML 500 ML IVPB SCH ×2 (06:10→17:12)
[2019-03-09] MEDS: SODIUM CHLORIDE 0.9% 1,000 ML IV SCH ×2 (06:12→16:08)
[2019-03-09 07:34] LABS: HCT 30.6 % (34.0-46.0); HGB 10.3 gm/dL (11.4-16.0); MCHC 33.8 g/dL (31.0-37.0); MCV 106.5 fL (80.0-100.0); Macrocytosis Moderate; Mean Platelet Volume 9.5; Platelet Count 112 k/uL (150-450); RBC 2.87 m/uL (3.80-5.40); RDW 13.9 % (11.5-15.5)
[2019-03-09 07:53] LABS: African American GFR (CKD) >90 (>60 ml/min/1.73 sqM); Anion Gap 6 mmol/L; Blood Urea Nitrogen 10 mg/dL (7-17); Calcium 7.7 mg/dL (8.4-10.2); Carbon Dioxide 28 mmol/L (22-30); Chloride 106 mmol/L (98-107); Glucose 89 mg/dL (74-99); Potassium 3.8 mmol/L (3.5-5.1); Sodium 140 mmol/L (137-145)
[2019-03-09] MEDS: FILGRASTIM-SNDZ 480 MCG/0.8 ML SYRINGE SQ SCH (08:33)
[2019-03-09] MEDS: IPRATROPIUM-ALBUTEROL 3 ML NEB INHALATION SCH ×4 (08:33→19:50)
[2019-03-09] MEDS: SENNOSIDES 8.6 MG TAB PO SCH (08:34)
[2019-03-09] MEDS: ACYCLOVIR 200 MG CAP PO SCH ×2 (08:34→22:52)
[2019-03-09] MEDS: HYDROcodone/APAP 7.5-325MG 1 EACH TAB PO PRN (08:35)
[2019-03-09] MEDS: SUCRALFATE 1 GM TAB PO SCH ×4 (08:36→22:33)
[2019-03-09] MEDS: POTASSIUM CHLORIDE ER 20 MEQ TAB.ER PO SCH (08:36)
[2019-03-09] MEDS: PANTOPRAZOLE 40 MG TABLET PO SCH (08:36)
[2019-03-09] MEDS: DILTIAZEM CD 180 MG CAP.ER.24H PO SCH (08:36)
[2019-03-09] MEDS: LORATADINE 10 MG TAB PO SCH (08:36)
[2019-03-09] MEDS: FAMOTIDINE 20 MG/2 ML VIAL IV SCH ×2 (08:37→22:33)
[2019-03-09] MEDS: FUROSEMIDE 40 MG TAB PO SCH (08:37)
[2019-03-09] MEDS: HEPARIN SODIUM,PORCINE 5,000 UNIT/ML 1 ML VIAL SQ SCH ×2 (08:37→22:34)
[2019-03-09] MEDS: ASPIRIN 81 MG PO SCH (08:37)
[2019-03-09] MEDS: FLUTICASONE 50MCG/SPRAY NASAL 16GM EA NOSTRIL SCH (08:43)
[2019-03-09 08:52] LABS: Band Neutrophils % 5 %; Metamyelocytes # (M) 0.03 k/uL (0); Metamyelocytes % 1 %; Monocytes # (M) 0.16 k/uL (0-1.0); Neutrophils % (M) 84 %; Nucleated Red Blood Cells 2 /100 WBC (0-0); Total Cells Counted 100
[2019-03-09 08:53] LABS: WBC 2.6 k/uL (3.8-10.6)
[2019-03-09] MEDS ORDERED: BISACODYL 5 MG TABLET.DR PO PRN (11:18)
--- NOTE | 2019-03-09 11:21 | P.PN ---
Subjective Patient is 62-year-old female with a known history of metastatic breast cancer to thoracic and lumbar vertebrae and ribs with blastic lesions, hypertension, hyperlipidemia and history of CVA TIA with some left-sided weakness came to ER with complaints of nausea vomiting and unable to tolerate oral diet. Patient has completed radiation therapy recently and has been having throat pain and unable to tolerate oral diet. Patient also complaining of shortness of breath and sinus congestion as well as postnasal drip which has been bothering a lot. Denied any complaints of fever but patient does have chills. Patient is also on oral chemotherapy. Patient was breast Cance was initially diagnosed in 1997 and has recurrence last year. Patient has metastatic lesions to bones. No complaints of dysuria or hematuria. Chest x-ray showed mild cardiomegaly without acute pulmonary process. No signal change from prior. CT angiogram of the chest showed no evidence of pulmonary embolism. Osteoblastic metastatic disease in the bony thorax. There is progression of the blastic changes compared to old computed tomography scan of 06/15/2018. Subtle small areas of mixed density in the liver could relate to metastatic disease. Mild pulmonary emphysema. Mild scarring at the lung bases. EKG showed sinus rhythm. WBC 1.6 and platelets 60,000 Hemoglobin 11.3 Strep throat negative. 03/06/2019 Patient is still having some nausea and sore throat. Patient also complaining of chills. Empiric antibiotics in the form of Levaquin was started. Follow-up culture reports. Patient is tolerating liquid diet will be advanced as tolerated. Oncology is on board. Continue with IV hydration. Denied any complaints of fever or chills. WBC count is 1.1 today. Hemoglobin 10.4 03/07/2019 Patient does have some difficulty in swallowing. Barium swallow evaluation was done showed normal deglutition. Otherwise patient is tolerating oral diet and is being advanced. Still complaining of sore throat which is improving. Silvadene was applied for the radiation burn on the chest and back. Continued on symptomatic management for nausea and vomiting. IV hydration. Currently on antibiotics the form of Levaquin. Blood cultures are growing coagulase-negative staph aureus which is contaminant sample.. Oncology is following. 03/08/2019 Patient is fully awake and oriented. She denies chest pain. However she still have some dry cough and dyspnea especially on exertion. She is on regular diet but she took only a couple sews this morning, she is still having some nausea and she vomited once this morning. She denies abdominal pain. However she is constipated and she is taken [place]. Her burn on the back of the neck is looks his stable. Local treatment is applied. She's Vitas looks stable. showing pancytopenia but is improving with WBC up to 1.6, hemoglobin 9.8 and platelets 79. She has ptosis of positive blood cultures with coagulase-negative staph. ID team were consulted 03/09/2019 Patient is awake. She is still complaining of from dyspnea and exertional dyspnea although they are slightly better. She has a lot of comfort making a lot of phlegm. No chest pain. She still have some back pain and pain at her throat, however [place] has been helping her. She has a regular diet with nausea but no vomiting. No abdominal pain. Her burn at the back of her neck is improving as well. Yesterday her blood culture was positive, patient was started on IV vancomycin for staph in the blood. For some blood culture showing MSSA, second blood culture is still pending final results. Infectious disease input is appreciated. Rheumatology team are following the patient for pancytopenia, Which is improving, her WBC is 2.6, hemoglobin 10.3, platelets 112. Subcu heparin was restarted. BMP was unremarkable and creatinine within normal limits. Rest of Vitas are stable and patient is saturating 95% on room air. Review of systems CONSTITUTIONAL: No fever, no malaise, no fatigue. HEENT: No recent visual problems or hearing problems. Denied any sore throat. CARDIOVASCULAR: No orthopnea, PND, no palpitations, no syncope. PULMONARY:no hemoptysis. GASTROINTESTINAL: No diarrhea, no nausea, no vomiting, no abdominal pain. Normoactive bowel sounds. NEUROLOGICAL: No headaches, no weakness, no numbness. HEMATOLOGICAL: Denies any bleeding or petechiae. GENITOURINARY: Denies any burning micturition, frequency, or urgency. MUSCULOSKELETAL/RHEUMATOLOGICAL: Denies any joint pain, swelling, or any muscle pain. ENDOCRINE: Denies any polyuria or polydipsia. Medications: Acyclovir 400 mg, albuterol 0.5 mg, aspirin 162 mg, Lipitor 40 mg, Bentyl 10 mg, Cardizem 180 mg, Pepcid 20 mg, filgrastim 480 g, Flonase nasal spray, Lasix 40 mg, Neurontin 6 mg, [place] 7.5-325 mg, LOTROZOL 2.5 mg, Levaquin 500 mg, Claritin 10 mg, Zofran 4 mg, Protonix 40, aquafor topical, potassium chloride 20 mEq, scopolamine patch, Senokot 8.6 kg, silver sulfur the typical, normal saline at 75 mm/h, vancomycin 2000 mg. Senokot Objective - Vital Signs Vital signs: Vital Signs Temp 98.4 F 03/09/19 07:25 Pulse 89 03/09/19 07:25 Resp 15 03/09/19 07:25 BP 144/87 03/09/19 07:25 Pulse Ox 95 03/09/19 07:25 Intake & Output 03/08/19 03/09/19 03/09/19 18:59 06:59 18:59 Intake Total 705 180 Balance 705 180 Intake: Intake, IV Titration 525 Amount Sodium Chloride 0.9% 1, 525 000 ml @ 75 mls/hr IV . [id number] [facility] Rx#:[id number] Oral 180 180 Other: Voiding Method Toilet # Voids 2 2 - Exam GENERAL: The patient is alert and oriented x3, not in any acute distress. Obese HEENT: Pupils are round and equally reacting to light. EOMI. No scleral icterus. No conjunctival pallor. Normocephalic, atraumatic. No pharyngeal erythema. No thyromegaly. CARDIOVASCULAR: S1 and S2 present. No murmurs, rubs, or gallops. PULMONARY: Chest is clear to auscultation, no wheezing or crackles. ABDOMEN: Soft, nontender, nondistended, normoactive bowel sounds. No palpable organomegaly. MUSCULOSKELETAL: No joint swelling or deformity. EXTREMITIES: No cyanosis, clubbing, or pedal edema. NEUROLOGICAL: Gross neurological examination did not reveal any focal deficits. -SKIN: No rashes. Area of erythema on the back of the neck - Labs CBC & Chem 7: 03/09/19 06:52 03/09/19 06:52 Labs: Abnormal Lab Results - Last 24 Hours (Table) 03/08/19 03/09/19 03/09/19 Range/Units 06:40 06:52 06:52 WBC 2.6 L (3.8-10.6) k/uL RBC 2.87 L (3.80-5.40) m/uL Hgb 10.3 L (11.4-16.0) gm/dL Hct 30.6 L (34.0-46.0) % MCV 106.5 H (80.0-100.0) fL MCH 36.0 H (25.0-35.0) pg Plt Count 79 L 112 L (150-450) k/uL Lymphocytes # (Manual) 0.05 L 0.10 L (1.0-4.8) k/uL Metamyelocytes # (Man) 0.03 H (0) k/uL Nucleated RBCs 2 H (0-0) /100 WBC Calcium 7.7 L (8.4-10.2) mg/dL Microbiology - Last 24 Hours (Table) 03/05/19 14:57 Blood Culture Gram Stain - Final Blood Blood Culture - Final Staphylococcus lugdunenisis Assessment and Plan Assessment: Intractable nausea and vomiting and throat pain likely due to radiation related esophagitis. Pancytopenia secondary to chemotherapy Postnasal drip with possible acute sinusitis. Coagulase-negative bacteremia with MSSA, however repeat blood culture from the results are still pending for coagulase-negative staph Metastatic breast cancer to bones and liver. Currently completed radiation therapy. Patient is also on oral chemotherapy. Chills without any reported fever History of breast cancer was a diagnosis in 1997 Previous history of smoking and emphysematous changes in the lungs. Hypertension Hyperlipidemia History of CVA with mild left-sided weakness Plan: This is a pleasant 63 years old female who presents because of radiation-induced dysphagia with pancytopenia and positive blood culture. Continue with support carlyn treatment and IV hydration. Continue with antibiotics as per ID team consult. Monitor blood cells while patient is on filgstrim, follow-up recommendations of hematology oncology and ID team.Labs and medication were reviewed.. Continue same treatment. Continue with symptomatic treatment. Re sume home medication. Monitor lytes and vitals. DVT and GI prophylaxis. Further recommendations of the clinical course of the patient DVT prophylaxis: Subcutaneous heparin, heparin can be started since her platelet count is improved significantly to 79. GI Prophylaxis: Pepcid PT/OT: Pending Prognosis is guarded
[2019-03-09] MEDS: TRIAMCINOLONE 0.1% CREAM 80 GM TUBE TOPICAL SCH ×2 (15:22→22:34)
[2019-03-09] MEDS: LETROZOLE 2.5 MG TAB PO SCH (16:04)
[2019-03-09] MEDS: GABAPENTIN 300 MG CAP PO SCH (16:05)
[2019-03-09] MEDS: ATORVASTATIN 40 MG TAB PO SCH (22:33)
[2019-03-09] MEDS: SCOPOLAMINE 1.5MG/72HR PATCH TRANSDERM SCH (22:52)
--- NOTE | 2019-03-09 23:51 | P.PN ---
Subjective Progress Note Date: 03/09/19 Pleasant 63-year-old female is a complex past medical history regarding her breast carcinoma. 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 Because of increasing pain and neurological difficulties she was evaluated is now receiving radiation therapy to the cervical and thoracic spine. 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 She had increasing difficulties trying to ingest any foods or fluids. Should he feel very poorly and constantly present emergency center. She's having treated with some pain medication and topical therapies and is feeling somewhat better. With several positive blood cultures the infectious diseases consultation was requested. The patient thinks she may have had a fever but is certain he has not persistent at this time. She does feel very poorly but better today than 24 hours ago. 03/09/2019 the patient is feeling slowly better today. She found that the Carafate was really quite helpful and we have requested this to continue. She is not having further fevers or chills and the topical therapies are helping her significant discomfort from her radiation dermatitis. Objective - Vital Signs Vital signs: Vital Signs Temp 98.1 F 03/09/19 15:09 Pulse 88 03/09/19 20:04 Resp 16 03/09/19 15:09 BP 120/66 03/09/19 15:09 Pulse Ox 96 03/09/19 15:09 Intake & Output 03/09/19 03/09/19 03/10/19 06:59 18:59 06:59 Intake Total 1360 180 Balance 1360 180 Intake: Intake, IV Titration 600 Amount Sodium Chloride 0.9% 1, 600 000 ml @ 75 mls/hr IV . [id number] [facility] Rx#:[id number] Oral 760 180 Other: # Voids 2 2 - Exam HEENT: Anicteric conjunctiva are pink and moist nasal mucosa grossly intact without significant lesions, there is no thrush. Neck: The neck reveals evidence of some diminished range of motion that is not new, there is evidence of the extensive erythema anterior posterior from the radiation windowless from the recent treatment of the bony metastasis to the spine. Lungs: Good bilateral air entry without significant crackles few wheezes. There is no significant bronchial sounds. There is no egophony or dullness. Heart: Regular rate and rhythm with an audible S1-S2, no S3 no S4. There is no significant murmur click or rub, PMI was nondisplaced. Abdomen:obese Positive bowel sounds soft and nontender without palpable masses or organomegaly. There was no guarding or rebound. Extremities: The upper extremities have excellent pulses they are symmetric, no significant petechiae or telangiectasia. No splinter hemorrhages were noted. The lower extremities are free from significant edema. The peripheral pulses were 2+ and symmetric. Neuro: Awake alert oriented to person place and time. There are no acute new gross focal sensory motor deficits. - Labs CBC & Chem 7: 03/09/19 06:52 03/09/19 06:52 Labs: Abnormal Lab Results - Last 24 Hours (Table) 03/09/19 03/09/19 Range/Units 06:52 06:52 WBC 2.6 L (3.8-10.6) k/uL RBC 2.87 L (3.80-5.40) m/uL Hgb 10.3 L (11.4-16.0) gm/dL Hct 30.6 L (34.0-46.0) % MCV 106.5 H (80.0-100.0) fL MCH 36.0 H (25.0-35.0) pg Plt Count 112 L (150-450) k/uL Lymphocytes # (Manual) 0.10 L (1.0-4.8) k/uL Metamyelocytes # (Man) 0.03 H (0) k/uL Nucleated RBCs 2 H (0-0) /100 WBC Calcium 7.7 L (8.4-10.2) mg/dL Microbiology - Last 24 Hours (Table) 03/06/19 14:50 Blood Culture Gram Stain - Final Blood Blood Culture - Final Staphylococcus lugdunenisis 03/08/19 18:16 Blood Culture - Preliminary Blood No Growth after 24 hours 03/08/19 17:44 Blood Culture - Preliminary Blood No Growth after 24 hours 03/05/19 14:57 Blood Culture Gram Stain - Final Blood Blood Culture - Final Staphylococcus lugdunenisis Laboratory Results WBC 2.6 k/uL (3.8-10.6) L 03/09/19 06:52 RBC 2.87 m/uL (3.80-5.40) L 03/09/19 06:52 Hgb 10.3 gm/dL (11.4-16.0) L 03/09/19 06:52 Hct 30.6 % (34.0-46.0) L 03/09/19 06:52 MCV 106.5 fL (80.0-100.0) H 03/09/19 06:52 MCH 36.0 pg (25.0-35.0) H 03/09/19 06:52 MCHC 33.8 g/dL (31.0-37.0) 03/09/19 06:52 RDW 13.9 % (11.5-15.5) 03/09/19 06:52 Plt Count 112 k/uL (150-450) L 03/09/19 06:52 Neutrophils % Not Reportable 03/08/19 06:40 Neutrophils % (Manual) 84 % 03/09/19 06:52 Band Neutrophils % 5 % 03/09/19 06:52 Lymphocytes % Not Reportable 03/08/19 06:40 Lymphocytes % (Manual) 4 % 03/09/19 06:52 Monocytes % Not Reportable 03/08/19 06:40 Monocytes % (Manual) 6 % 03/09/19 06:52 Eosinophils % Not Reportable 03/08/19 06:40 Eosinophils % (Manual) 1 % 03/06/19 07:02 Basophils % Not Reportable 03/08/19 06:40 Metamyelocytes % 1 % 03/09/19 06:52 Neutrophils # Not Reportable 03/08/19 06:40 Neutrophils # (Manual) 2.30 k/uL (1.3-7.7) 03/09/19 06:52 Lymphocytes # Not Reportable 03/08/19 06:40 Lymphocytes # (Manual) 0.10 k/uL (1.0-4.8) L 03/09/19 06:52 Monocytes # Not Reportable 03/08/19 06:40 Monocytes # (Manual) 0.16 k/uL (0-1.0) 03/09/19 06:52 Eosinophils # Not Reportable 03/08/19 06:40 Eosinophils # (Manual) 0.01 k/uL (0-0.7) 03/06/19 07:02 Basophils # Not Reportable 03/08/19 06:40 Metamyelocytes # (Man) 0.03 k/uL (0) H 03/09/19 06:52 Nucleated RBCs 2 /100 WBC (0-0) H 03/09/19 06:52 Differential Comment 03/07/19 06:54 Manual Slide Review Performed 03/09/19 06:52 Polychromasia Present 03/05/19 14:53 Poikilocytosis (manual Present 03/08/19 06:40 Anisocytosis (manual) Present 03/05/19 14:53 Macrocytosis Moderate 03/09/19 06:52 PT 9.9 sec (9.0-12.0) 03/05/19 14:53 INR 0.9 (<1.2) 03/05/19 14:53 APTT 23.9 sec (22.0-30.0) 03/05/19 14:53 Sodium 140 mmol/L (137-145) 03/09/19 06:52 Potassium 3.8 mmol/L (3.5-5.1) 03/09/19 06:52 Chloride 106 mmol/L (98-107) 03/09/19 06:52 Carbon Dioxide 28 mmol/L (22-30) 03/09/19 06:52 Anion Gap 6 mmol/L 03/09/19 06:52 BUN 10 mg/dL (7-17) 03/09/19 06:52 Creatinine 0.74 mg/dL (0.52-1.04) 03/09/19 06:52 Est GFR (CKD-EPI)AfAm >90 (>60 ml/min/1.73 sqM) 03/09/19 06:52 Est GFR (CKD-EPI)NonAf 87 (>60 ml/min/1.73 sqM) 03/09/19 06:52 Glucose 89 mg/dL (74-99) 03/09/19 06:52 Calcium 7.7 mg/dL (8.4-10.2) L 03/09/19 06:52 Total Bilirubin 1.0 mg/dL (0.2-1.3) 03/08/19 06:40 AST 67 U/L (14-36) H 03/08/19 06:40 ALT 49 U/L (9-52) 03/08/19 06:40 Alkaline Phosphatase 50 U/L (38-126) 03/08/19 06:40 Total Protein 5.4 g/dL (6.3-8.2) L 03/08/19 06:40 Albumin 2.7 g/dL (3.5-5.0) L 03/08/19 06:40 CA 15-3 Antigen 114.2 U/mL (0.0-32.3) H 03/06/19 07:02 CA 27-29 135.7 U/mL (0.0-38.5) H 03/06/19 07:02 Urine Color Yellow 03/06/19 18:30 Urine Appearance Cloudy (Clear) H 03/06/19 18:30 Urine pH 6.5 (5.0-8.0) 03/06/19 18:30 Ur Specific Warren 1.024 (1.001-1.035) 03/06/19 18:30 Urine Protein 1+ (Negative) H 03/06/19 18:30 Urine Glucose (UA) Negative (Negative) 03/06/19 18:30 Urine Ketones Negative (Negative) 03/06/19 18:30 Urine Blood Small (Negative) H 03/06/19 18:30 Urine Nitrite Negative (Negative) 03/06/19 18:30 Urine Bilirubin Negative (Negative) 03/06/19 18:30 Urine Urobilinogen 8.0 mg/dL (<2.0) 03/06/19 18:30 Ur Leukocyte Esterase Small (Negative) H 03/06/19 18:30 Urine RBC 3 /hpf (0-5) 03/06/19 18:30 Urine WBC 5 /hpf (0-5) 03/06/19 18:30 Ur Squamous Epith Cells 2 /hpf (0-4) 03/06/19 18:30 Urine Mucus Few /hpf (None) H 03/06/19 18:30 Group A Strep Rapid Negative (Negative) 03/05/19 15:10 Microbiology 03/06/19 14:50 Blood Blood Culture Gram Stain - Final 03/06/19 14:50 Blood Blood Culture - Final Staphylococcus lugdunenisis 03/08/19 18:16 Blood Blood Culture - Preliminary No Growth after 24 hours 03/08/19 17:44 Blood Blood Culture - Preliminary No Growth after 24 hours 03/05/19 14:57 Blood Blood Culture Gram Stain - Final 03/05/19 14:57 Blood Blood Culture - Final Staphylococcus lugdunenisis 03/05/19 15:10 Throat Group A Strep Throat Culture - Final 03/06/19 14:50 Blood Blood Culture - Final 03/05/19 14:57 Blood Blood Culture - Final Assessment and Plan (1) Nausea and vomiting Current Visit: Yes Status: Acute Code(s): R11.2 - NAUSEA WITH VOMITING, UNSPECIFIED SNOMED Code(s): 65255045 (2) Radiation-induced dermatitis Current Visit: Yes Status: Acute Code(s): L58.9 - RADIODERMATITIS, UNSPECIFIED SNOMED Code(s): 92386300 (3) Metastatic breast carcinoma Current Visit: Yes Status: Acute Code(s): C50.919 - MALIGNANT NEOPLASM OF UNSP SITE OF UNSPECIFIED FEMALE BREAST SNOMED Code(s): 152107119 (4) Gram-positive cocci bacteremia Narrative/Plan: 63-year-old woman presents to hospital with increasing difficulties with eating and drinking, so see was some nausea some minimal amount of emesis increasing fatigue and malaise and increasing pain. The patient believes she Loretta had a fever but this is not been highly persistent throughout the hospital stay. She does have difficulties with radiation dermatitis both anterior and posterior around the spine where she was receiving the therapy for her bony metastasis. Topical therapy with triamcinolone alternating with Silvadene has been requested. She also has difficulties with radiation esophagitis and Carafate been requested since she is intolerant of the cools solution. Antibiotic therapy as well as vancomycin given the multiple positive blood cultures for gram-positive cocci. However careful analysis reveals that truly would only be 2 cultures that have been noted so far. They've asked for further blood cultures and very careful cleansing of the skin to ensure no contamination. We'll continue antibiotics for now until we have further data. 03/09/2019 reveals the patient be feeling slightly better today. The Carafate was quite helpful in helping her with her significant dysphagia. The topical therapies are also helping her sitting and skin discomfort. She was doing well with current antibiotic therapy of vancomycin. It is noted there were several positive blood cultures and follow blood cultures are pending at this point in time. Routine a coagulase-negative staph is not of great concern however given her immunocompromised status and significant open skin ulcerations is concerning for the moment. Follow-up cultures will help determine her course of therapy. Current Visit: Yes Status: Acute Code(s): R78.81 - BACTEREMIA SNOMED Code(s): 392636631522
[2019-03-10] MEDS: SODIUM CHLORIDE 0.9% 1,000 ML IV SCH ×2 (05:14→17:43)
[2019-03-10] MEDS: VANCOMYCIN 2,000 MG in SODIUM CHLORIDE 0.9% 500 ML 500 ML IVPB SCH ×2 (06:48→17:40)
[2019-03-10] MEDS: IPRATROPIUM-ALBUTEROL 3 ML NEB INHALATION SCH ×4 (07:37→20:29)
[2019-03-10] MEDS: POTASSIUM CHLORIDE ER 20 MEQ TAB.ER PO SCH (08:15)
[2019-03-10] MEDS: SENNOSIDES 8.6 MG TAB PO SCH (08:15)
[2019-03-10] MEDS: ASPIRIN 81 MG PO SCH (08:15)
[2019-03-10] MEDS: LORATADINE 10 MG TAB PO SCH (08:15)
[2019-03-10] MEDS: SUCRALFATE 1 GM TAB PO SCH ×4 (08:15→23:05)
[2019-03-10] MEDS: PANTOPRAZOLE 40 MG TABLET PO SCH (08:16)
[2019-03-10] MEDS: FAMOTIDINE 20 MG/2 ML VIAL IV SCH ×2 (08:16→19:59)
[2019-03-10] MEDS: FUROSEMIDE 40 MG TAB PO SCH (08:16)
[2019-03-10] MEDS: DILTIAZEM CD 180 MG CAP.ER.24H PO SCH (08:16)
[2019-03-10] MEDS: HEPARIN SODIUM,PORCINE 5,000 UNIT/ML 1 ML VIAL SQ SCH ×2 (08:17→19:58)
[2019-03-10] MEDS: ACYCLOVIR 200 MG CAP PO SCH ×2 (08:17→20:00)
[2019-03-10] MEDS: FLUTICASONE 50MCG/SPRAY NASAL 16GM EA NOSTRIL SCH (08:17)
[2019-03-10 08:21] LABS: HCT 29.5 % (34.0-46.0); HGB 9.8 gm/dL (11.4-16.0); MCH 35.6 pg (25.0-35.0); MCHC 33.3 g/dL (31.0-37.0); MCV 106.8 fL (80.0-100.0); Macrocytosis Moderate; Mean Platelet Volume 9.3; Platelet Count 134 k/uL (150-450); RBC 2.76 m/uL (3.80-5.40); RDW 14.1 % (11.5-15.5)
[2019-03-10 08:37] LABS: African American GFR (CKD) >90 (>60 ml/min/1.73 sqM); Anion Gap 7 mmol/L; Blood Urea Nitrogen 9 mg/dL (7-17); Calcium 7.9 mg/dL (8.4-10.2); Carbon Dioxide 26 mmol/L (22-30); Chloride 110 mmol/L (98-107); Glucose 108 mg/dL (74-99); Potassium 3.6 mmol/L (3.5-5.1); Sodium 143 mmol/L (137-145)
[2019-03-10] MEDS: FILGRASTIM-SNDZ 480 MCG/0.8 ML SYRINGE SQ SCH (09:13)
[2019-03-10] MEDS: TRIAMCINOLONE 0.1% CREAM 80 GM TUBE TOPICAL SCH ×2 (09:17→21:48)
[2019-03-10] MEDS: GABAPENTIN 300 MG CAP PO SCH ×2 (11:10→17:40)
[2019-03-10 11:22] LABS: Band Neutrophils % 6 %; Eosinophils # (M) 0.08 k/uL (0-0.7); Lymphocytes # (M) 0.39 k/uL (1.0-4.8); Monocytes # (M) 0.43 k/uL (0-1.0); Myelocytes # (M) 0.04 k/uL (0); Myelocytes % 1 %; Neutrophils % (M) 72 %; Nucleated Red Blood Cells 3 /100 WBC (0-0); Promyelocytes # (M) 0.04 k/uL (0); Promyelocytes % 1 %; Rouleaux Present; Total Cells Counted 200; WBC 3.9 k/uL (3.8-10.6)
[2019-03-10 11:23] LABS: Poikilocytosis (M) Present; Polychromasia Present
[2019-03-10] MEDS: POLYETHYLENE GLYCOL 3350 17 GM POWD.PACK PO SCH (14:26)
--- NOTE | 2019-03-10 14:55 | P.PN ---
Subjective Patient says that she vomited this morning but is feeling better since She denies any abdominal pain History said that her breathing is better The bone of the back of the neck is better as per the patient Objective - Vital Signs Vital signs: Vital Signs Temp 98.6 F 03/10/19 07:15 Pulse 78 03/10/19 11:03 Resp 18 03/10/19 08:00 BP 106/61 03/10/19 07:15 Pulse Ox 95 03/10/19 07:15 Intake & Output 03/09/19 03/10/19 03/10/19 18:59 06:59 18:59 Intake Total 2801 056 7839 Balance 8617 621 9261 Intake: Intake, IV Titration 600 925 Amount Sodium Chloride 0.9% 1, 600 425 000 ml @ 75 mls/hr IV . [id number] [facility] Rx#:[id number] Vancomycin 2,000 mg In 500 Sodium Chloride 0.9% 500 ml 500 ml @ 167 mls/hr IVPB Q12H [facility] Rx#: [id number] Oral 760 180 480 Other: # Voids 2 2 2 - Exam On exam, alert and oriented x3. HEENT: Conjunctivae normal. eyes normal. NECK: No JVD. No thyroid enlargement. No LNs CARDIOVASCULAR: S1-S2 positive RESPIRATION: Breath sounds are regular wasn't her current residence wheezing ABDOMEN: Soft, nontender . No guarding. no masses palpable. No ascites, No hepatosplenomegaly.Bowel sounds heard. Patient is having some oozing at the site of the subcu heparin injection is controlled right now with pressure dressing LEGS: No edema. no swelling NERVOUS SYSTEM: Cranial N 2-12 grossly normal. Moves all 4 limbs. No focal deficits. No sensory deficit. No signs of cerebellar dysfucntion. Skin: Patient is having garcia at the back due to radiation - Labs CBC & Chem 7: 03/10/19 07:24 03/10/19 07:24 Labs: Abnormal Lab Results - Last 24 Hours (Table) 03/10/19 03/10/19 Range/Units 07:24 07:24 RBC 2.76 L (3.80-5.40) m/uL Hgb 9.8 L (11.4-16.0) gm/dL Hct 29.5 L (34.0-46.0) % MCV 106.8 H (80.0-100.0) fL MCH 35.6 H (25.0-35.0) pg Plt Count 134 L (150-450) k/uL Lymphocytes # (Manual) 0.39 L (1.0-4.8) k/uL Myelocytes # (Manual) 0.04 H (0) k/uL Promyelocytes # (Man) 0.04 H (0) k/uL Nucleated RBCs 3 H (0-0) /100 WBC Chloride 110 H (98-107) mmol/L Glucose 108 H (74-99) mg/dL Calcium 7.9 L (8.4-10.2) mg/dL Microbiology - Last 24 Hours (Table) 03/06/19 14:50 Blood Culture Gram Stain - Final Blood Blood Culture - Final Staphylococcus lugdunenisis 03/08/19 18:16 Blood Culture - Preliminary Blood No Growth after 24 hours 03/08/19 17:44 Blood Culture - Preliminary Blood No Growth after 24 hours Assessment and Plan Assessment: Intractable nausea and vomiting and throat pain likely due to radiation related esophagitis. Pancytopenia secondary to chemotherapy improving Postnasal drip with possible acute sinusitis. Coagulase-negative bacteremia with MSSA, however repeat blood culture from the results are still pending for coagulase-negative staph Metastatic breast cancer to bones and liver. Currently completed radiation therapy. Patient is also on oral chemotherapy. Chills without any reported fever History of breast cancer was a diagnosis in 1997 Previous history of smoking and emphysematous changes in the lungs. Hypertension Hyperlipidemia History of CVA with mild left-sided weakness Plan - Patient is on IV vancomycin. ID following the cultures. Her previous blood cultures are positive for coag-negative staph - Hematology following the patient. Her WBC is coming up nicely - Patient says that she was constipated. We'll add MiraLAX and see how she does - Continue rest of the medical care
[2019-03-10] MEDS: LETROZOLE 2.5 MG TAB PO SCH (17:40)
--- NOTE | 2019-03-10 17:42 | P.PN ---
Subjective Progress Note Date: 03/10/19 Principal diagnosis: Odynohagia secondary radiation esophagitis Pt states feeling a little better today, skin is clearing up, throat is still sensitive, no fevers, chest pain, she did vomit her meds but relates that to taking the carafate tablet and not mixing with water. Objective - Vital Signs Vital signs: Vital Signs Temp 98.4 F 03/10/19 14:22 Pulse 103 H 03/10/19 14:22 Resp 18 03/10/19 14:22 BP 128/74 03/10/19 14:22 Pulse Ox 93 L 03/10/19 14:22 Intake & Output 03/09/19 03/10/19 03/10/19 18:59 06:59 18:59 Intake Total 8802 283 4402 Balance 7172 177 8424 Intake: Intake, IV Titration 600 925 Amount Sodium Chloride 0.9% 1, 600 425 000 ml @ 75 mls/hr IV . [id number] [facility] Rx#:[id number] Vancomycin 2,000 mg In 500 Sodium Chloride 0.9% 500 ml 500 ml @ 167 mls/hr IVPB Q12H [facility] Rx#: [id number] Oral 760 180 480 Other: # Voids 2 2 2 - Constitutional General appearance: Present: cooperative, morbidly obese, no acute distress - EENT Eyes: Present: anicteric sclerae, EOMI, normal appearance ENT: Present: hearing grossly normal, normal oropharynx - Respiratory Respiratory: bilateral: CTA - Cardiovascular Rhythm: regular Heart sounds: normal: S1, S2 - Peripheral edema leg Peripheral Edema: bilateral: Trace - Gastrointestinal General gastrointestinal: Present: normal bowel sounds - Neurologic Neurologic: Present: CNII-XII intact - Musculoskeletal Musculoskeletal: Present: strength equal bilaterally - Psychiatric Psychiatric: Present: A&O x's 3, appropriate affect, intact judgment & insight - Labs CBC & Chem 7: 03/10/19 07:24 03/10/19 07:24 Labs: Abnormal Lab Results - Last 24 Hours (Table) 03/10/19 03/10/19 Range/Units 07:24 07:24 RBC 2.76 L (3.80-5.40) m/uL Hgb 9.8 L (11.4-16.0) gm/dL Hct 29.5 L (34.0-46.0) % MCV 106.8 H (80.0-100.0) fL MCH 35.6 H (25.0-35.0) pg Plt Count 134 L (150-450) k/uL Lymphocytes # (Manual) 0.39 L (1.0-4.8) k/uL Myelocytes # (Manual) 0.04 H (0) k/uL Promyelocytes # (Man) 0.04 H (0) k/uL Nucleated RBCs 3 H (0-0) /100 WBC Chloride 110 H (98-107) mmol/L Glucose 108 H (74-99) mg/dL Calcium 7.9 L (8.4-10.2) mg/dL Microbiology - Last 24 Hours (Table) 03/05/19 14:57 Blood Culture Gram Stain - Final Blood Blood Culture - Final Staphylococcus lugdunenisis 03/06/19 14:50 Blood Culture Gram Stain - Final Blood Blood Culture - Final Staphylococcus lugdunenisis 03/08/19 18:16 Blood Culture - Preliminary Blood No Growth after 24 hours 03/08/19 17:44 Blood Culture - Preliminary Blood No Growth after 24 hours Assessment and Plan (1) Odynophagia Narrative/Plan: Secondary to radiation. Improving slowly. Pt is able to tolerate moderate oral intake. Cont use of topical analgesics. Current Visit: Yes Status: Acute Priority: High Code(s): R13.10 - DYSPHAGIA, UNSPECIFIED SNOMED Code(s): 49988268 (2) Metastatic breast carcinoma Narrative/Plan: Hold Ibrance, cont femara, xgeva monthly. Plan was for PET this Sat, will discuss with Primary Oncologist, may postpone due esophagitis. Hold Ibrance until evaluated, pt already has an appt scheduled. Current Visit: Yes Status: Chronic Priority: Medium Code(s): C50.919 - MALIGNANT NEOPLASM OF UNSP SITE OF UNSPECIFIED FEMALE BREAST SNOMED Code(s): 012383302 (3) Nausea and vomiting Current Visit: Yes Status: Resolved Code(s): R11.2 - NAUSEA WITH VOMITING, UNSPECIFIED SNOMED Code(s): 45097189 (4) Radiation-induced dermatitis Narrative/Plan: is doing a fine job of managing dermatitis, cont care as prescribed. Current Visit: Yes Status: Acute Priority: High Code(s): L58.9 - RADIODERMATITIS, UNSPECIFIED SNOMED Code(s): 38825665
[2019-03-10] MEDS: ATORVASTATIN 40 MG TAB PO SCH (19:59)
--- NOTE | 2019-03-10 23:48 | P.PN ---
Subjective Progress Note Date: 03/10/19 Pleasant 63-year-old female is a complex past medical history regarding her breast carcinoma. 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 Because of increasing pain and neurological difficulties she was evaluated is now receiving radiation therapy to the cervical and thoracic spine. 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 She had increasing difficulties trying to ingest any foods or fluids. Should he feel very poorly and constantly present emergency center. She's having treated with some pain medication and topical therapies and is feeling somewhat better. With several positive blood cultures the infectious diseases consultation was requested. The patient thinks she may have had a fever but is certain he has not persistent at this time. She does feel very poorly but better today than 24 hours ago. 03/09/2019 the patient is feeling slowly better today. She found that the Carafate was really quite helpful and we have requested this to continue. She is not having further fevers or chills and the topical therapies are helping her significant discomfort from her radiation dermatitis. 03/10/2019 patient does feel somewhat better today. The Carafate has definitely helped her discomfort with swallowing. The Silvadene is soothing her radiation dermatitis. She didn't have any significant fevers. The leukopenia is resolving. Objective - Vital Signs Vital signs: Vital Signs Temp 98.1 F 03/10/19 19:06 Pulse 76 03/10/19 20:39 Resp 18 03/10/19 19:06 BP 137/78 03/10/19 19:06 Pulse Ox 96 03/10/19 19:06 Intake & Output 03/10/19 03/10/19 03/11/19 06:59 18:59 06:59 Intake Total 180 1882 Balance 180 1882 Intake: Intake, IV Titration 925 Amount Sodium Chloride 0.9% 1, 425 000 ml @ 75 mls/hr IV . [id number] [facility] Rx#:[id number] Vancomycin 2,000 mg In 500 Sodium Chloride 0.9% 500 ml 500 ml @ 167 mls/hr IVPB Q12H [facility] Rx#: [id number] Oral 180 957 Other: # Voids 2 2 - Exam HEENT: Anicteric conjunctiva are pink and moist nasal mucosa grossly intact without significant lesions, there is no thrush. Neck: The neck reveals evidence of some diminished range of motion that is not new, there is evidence of the extensive erythema anterior posterior from the radiation windowless from the recent treatment of the bony metastasis to the spine. Lungs: Good bilateral air entry without significant crackles few wheezes. There is no significant bronchial sounds. There is no egophony or dullness. Heart: Regular rate and rhythm with an audible S1-S2, no S3 no S4. There is no significant murmur click or rub, PMI was nondisplaced. Abdomen:obese Positive bowel sounds soft and nontender without palpable masses or organomegaly. There was no guarding or rebound. Extremities: The upper extremities have excellent pulses they are symmetric, no significant petechiae or telangiectasia. No splinter hemorrhages were noted. The lower extremities are free from significant edema. The peripheral pulses were 2+ and symmetric. Neuro: Awake alert oriented to person place and time. There are no acute new gross focal sensory motor deficits. - Labs CBC & Chem 7: 03/10/19 07:24 03/10/19 07:24 Labs: Abnormal Lab Results - Last 24 Hours (Table) 03/10/19 03/10/19 Range/Units 07:24 07:24 RBC 2.76 L (3.80-5.40) m/uL Hgb 9.8 L (11.4-16.0) gm/dL Hct 29.5 L (34.0-46.0) % MCV 106.8 H (80.0-100.0) fL MCH 35.6 H (25.0-35.0) pg Plt Count 134 L (150-450) k/uL Lymphocytes # (Manual) 0.39 L (1.0-4.8) k/uL Myelocytes # (Manual) 0.04 H (0) k/uL Promyelocytes # (Man) 0.04 H (0) k/uL Nucleated RBCs 3 H (0-0) /100 WBC Chloride 110 H (98-107) mmol/L Glucose 108 H (74-99) mg/dL Calcium 7.9 L (8.4-10.2) mg/dL Microbiology - Last 24 Hours (Table) 03/08/19 18:16 Blood Culture - Preliminary Blood No Growth after 48 hours 03/08/19 17:44 Blood Culture - Preliminary Blood No Growth after 48 hours 03/05/19 14:57 Blood Culture Gram Stain - Final Blood Blood Culture - Final Staphylococcus lugdunenisis 03/06/19 14:50 Blood Culture Gram Stain - Final Blood Blood Culture - Final Staphylococcus lugdunenisis Laboratory Results WBC 3.9 k/uL (3.8-10.6) 03/10/19 07:24 RBC 2.76 m/uL (3.80-5.40) L 03/10/19 07:24 Hgb 9.8 gm/dL (11.4-16.0) L 03/10/19 07:24 Hct 29.5 % (34.0-46.0) L 03/10/19 07:24 MCV 106.8 fL (80.0-100.0) H 03/10/19 07:24 MCH 35.6 pg (25.0-35.0) H 03/10/19 07:24 MCHC 33.3 g/dL (31.0-37.0) 03/10/19 07:24 RDW 14.1 % (11.5-15.5) 03/10/19 07:24 Plt Count 134 k/uL (150-450) L 03/10/19 07:24 Neutrophils % Not Reportable 03/08/19 06:40 Neutrophils % (Manual) 72 % 03/10/19 07:24 Band Neutrophils % 6 % 03/10/19 07:24 Lymphocytes % Not Reportable 03/08/19 06:40 Lymphocytes % (Manual) 10 % 03/10/19 07:24 Monocytes % Not Reportable 03/08/19 06:40 Monocytes % (Manual) 11 % 03/10/19 07:24 Eosinophils % Not Reportable 03/08/19 06:40 Eosinophils % (Manual) 2 % 03/10/19 07:24 Basophils % Not Reportable 03/08/19 06:40 Metamyelocytes % 1 % 03/09/19 06:52 Myelocytes % 1 % 03/10/19 07:24 Promyelocytes % 1 % 03/10/19 07:24 Neutrophils # Not Reportable 03/08/19 06:40 Neutrophils # (Manual) 3.00 k/uL (1.3-7.7) 03/10/19 07:24 Lymphocytes # Not Reportable 03/08/19 06:40 Lymphocytes # (Manual) 0.39 k/uL (1.0-4.8) L 03/10/19 07:24 Monocytes # Not Reportable 03/08/19 06:40 Monocytes # (Manual) 0.43 k/uL (0-1.0) 03/10/19 07:24 Eosinophils # Not Reportable 03/08/19 06:40 Eosinophils # (Manual) 0.08 k/uL (0-0.7) 03/10/19 07:24 Basophils # Not Reportable 03/08/19 06:40 Metamyelocytes # (Man) 0.03 k/uL (0) H 03/09/19 06:52 Myelocytes # (Manual) 0.04 k/uL (0) H 03/10/19 07:24 Promyelocytes # (Man) 0.04 k/uL (0) H 03/10/19 07:24 Nucleated RBCs 3 /100 WBC (0-0) H 03/10/19 07:24 Differential Comment 03/07/19 06:54 Manual Slide Review Performed 03/10/19 07:24 Polychromasia Present 03/10/19 07:24 Poikilocytosis (manual Present 03/10/19 07:24 Anisocytosis (manual) Present 03/05/19 14:53 Macrocytosis Moderate 03/10/19 07:24 Rouleaux Present 03/10/19 07:24 PT 9.9 sec (9.0-12.0) 03/05/19 14:53 INR 0.9 (<1.2) 03/05/19 14:53 APTT 23.9 sec (22.0-30.0) 03/05/19 14:53 Sodium 143 mmol/L (137-145) 03/10/19 07:24 Potassium 3.6 mmol/L (3.5-5.1) 03/10/19 07:24 Chloride 110 mmol/L (98-107) H 03/10/19 07:24 Carbon Dioxide 26 mmol/L (22-30) 03/10/19 07:24 Anion Gap 7 mmol/L 03/10/19 07:24 BUN 9 mg/dL (7-17) 03/10/19 07:24 Creatinine 0.75 mg/dL (0.52-1.04) 03/10/19 07:24 Est GFR (CKD-EPI)AfAm >90 (>60 ml/min/1.73 sqM) 03/10/19 07:24 Est GFR (CKD-EPI)NonAf 85 (>60 ml/min/1.73 sqM) 03/10/19 07:24 Glucose 108 mg/dL (74-99) H 03/10/19 07:24 Calcium 7.9 mg/dL (8.4-10.2) L 03/10/19 07:24 Total Bilirubin 1.0 mg/dL (0.2-1.3) 03/08/19 06:40 AST 67 U/L (14-36) H 03/08/19 06:40 ALT 49 U/L (9-52) 03/08/19 06:40 Alkaline Phosphatase 50 U/L (38-126) 03/08/19 06:40 Total Protein 5.4 g/dL (6.3-8.2) L 03/08/19 06:40 Albumin 2.7 g/dL (3.5-5.0) L 03/08/19 06:40 CA 15-3 Antigen 114.2 U/mL (0.0-32.3) H 03/06/19 07:02 CA 27-29 135.7 U/mL (0.0-38.5) H 03/06/19 07:02 Urine Color Yellow 03/06/19 18:30 Urine Appearance Cloudy (Clear) H 03/06/19 18:30 Urine pH 6.5 (5.0-8.0) 03/06/19 18:30 Ur Specific [place] 1.024 (1.001-1.035) 03/06/19 18:30 Urine Protein 1+ (Negative) H 03/06/19 18:30 Urine Glucose (UA) Negative (Negative) 03/06/19 18:30 Urine Ketones Negative (Negative) 03/06/19 18:30 Urine Blood Small (Negative) H 03/06/19 18:30 Urine Nitrite Negative (Negative) 03/06/19 18:30 Urine Bilirubin Negative (Negative) 03/06/19 18:30 Urine Urobilinogen 8.0 mg/dL (<2.0) 03/06/19 18:30 Ur Leukocyte Esterase Small (Negative) H 03/06/19 18:30 Urine RBC 3 /hpf (0-5) 03/06/19 18:30 Urine WBC 5 /hpf (0-5) 03/06/19 18:30 Ur Squamous Epith Cells 2 /hpf (0-4) 03/06/19 18:30 Urine Mucus Few /hpf (None) H 03/06/19 18:30 Group A Strep Rapid Negative (Negative) 03/05/19 15:10 Microbiology 03/08/19 18:16 Blood Blood Culture - Preliminary No Growth after 48 hours 03/08/19 17:44 Blood Blood Culture - Preliminary No Growth after 48 hours 03/05/19 14:57 Blood Blood Culture Gram Stain - Final 03/05/19 14:57 Blood Blood Culture - Final Staphylococcus lugdunenisis 03/06/19 14:50 Blood Blood Culture Gram Stain - Final 03/06/19 14:50 Blood Blood Culture - Final Staphylococcus lugdunenisis 03/05/19 15:10 Throat Group A Strep Throat Culture - Final 03/06/19 14:50 Blood Blood Culture - Final 03/05/19 14:57 Blood Blood Culture - Final Assessment and Plan (1) Nausea and vomiting Current Visit: Yes Status: Resolved Code(s): R11.2 - NAUSEA WITH VOMITING, UNSPECIFIED SNOMED Code(s): 90228426 (2) Radiation-induced dermatitis Current Visit: Yes Status: Acute Priority: High Code(s): L58.9 - RADIODERMATITIS, UNSPECIFIED SNOMED Code(s): 96098270 (3) Metastatic breast carcinoma Current Visit: Yes Status: Chronic Priority: Medium Code(s): C50.919 - MALIGNANT NEOPLASM OF UNSP SITE OF UNSPECIFIED FEMALE BREAST SNOMED Code(s): 588590225 (4) Gram-positive cocci bacteremia Narrative/Plan: 63-year-old woman presents to hospital with increasing difficulties with eating and drinking, so see was some nausea some minimal amount of emesis increasing fatigue and malaise and increasing pain. The patient believes she Loretta had a fever but this is not been highly persistent throughout the hospital stay. She does have difficulties with radiation dermatitis both anterior and posterior around the spine where she was receiving the therapy for her bony metastasis. Topical therapy with triamcinolone alternating with Silvadene has been requested. She also has difficulties with radiation esophagitis and Carafate been requested since she is intolerant of the cools solution. Antibiotic therapy as well as vancomycin given the multiple positive blood cultures for gram-positive cocci. However careful analysis reveals that truly would only be 2 cultures that have been noted so far. They've asked for further blood cultures and very careful cleansing of the skin to ensure no contamination. We'll continue antibiotics for now until we have further data. 03/09/2019 reveals the patient be feeling slightly better today. The Carafate was quite helpful in helping her with her significant dysphagia. The topical therapies are also helping her sitting and skin discomfort. She was doing well with current antibiotic therapy of vancomycin. It is noted there were several positive blood cultures and follow blood cultures are pending at this point in time. Routine a coagulase-negative staph is not of great concern however given her immunocompromised status and significant open skin ulcerations is concerning for the moment. Follow-up cultures will help determine her course of therapy. 03/10/2019 the patient has had some further improvement. Carafate as help or dysphagia. Fevers have resolved. The positive blood cultures are with coagulase-negative staph and follow blood cultures are negative. These do appear to be contamination and she does not have any indwelling port. Would not need ongoing or long-term intravenous antibiotic therapy. However will do well to have some antibiotic therapy regarding the radiation dermatitis and open wounds her relative leukopenia. We'll work with oncology as to her discharge plan. Current Visit: Yes Status: Acute Code(s): R78.81 - BACTEREMIA SNOMED Code(s): 674935008231
[2019-03-11] MEDS ORDERED: VANCOMYCIN TROUGH DUE 1 EACH MISC MISCELLANE ONE (05:00)
[2019-03-11 05:40] LABS: HCT 29.5 % (34.0-46.0); HGB 9.7 gm/dL (11.4-16.0); MCH 35.2 pg (25.0-35.0); MCHC 32.8 g/dL (31.0-37.0); MCV 107.4 fL (80.0-100.0); Macrocytosis Moderate; Mean Platelet Volume 8.9; Platelet Count 146 k/uL (150-450); RBC 2.75 m/uL (3.80-5.40); RDW 14.3 % (11.5-15.5); WBC 5.2 k/uL (3.8-10.6)
[2019-03-11] MEDS: VANCOMYCIN 2,000 MG in SODIUM CHLORIDE 0.9% 500 ML 500 ML IVPB SCH (05:45)
[2019-03-11 05:51] LABS: Calcium 8.2 mg/dL (8.4-10.2); Potassium 3.6 mmol/L (3.5-5.1)
[2019-03-11] MEDS: SODIUM CHLORIDE 0.9% 1,000 ML IV SCH ×2 (05:58→14:49)
[2019-03-11] MEDS: IPRATROPIUM-ALBUTEROL 3 ML NEB INHALATION SCH ×4 (07:06→18:51)
[2019-03-11] MEDS: HYDROcodone/APAP 7.5-325MG 1 EACH TAB PO PRN (08:11)
[2019-03-11] MEDS: GABAPENTIN 300 MG CAP PO SCH ×2 (08:11→17:08)
[2019-03-11] MEDS: FUROSEMIDE 40 MG TAB PO SCH (08:12)
[2019-03-11] MEDS: SUCRALFATE 1 GM TAB PO SCH ×3 (08:12→17:12)
[2019-03-11] MEDS: POTASSIUM CHLORIDE ER 20 MEQ TAB.ER PO SCH (08:12)
[2019-03-11] MEDS: PANTOPRAZOLE 40 MG TABLET PO SCH (08:12)
[2019-03-11] MEDS: ASPIRIN 81 MG PO SCH (08:12)
[2019-03-11] MEDS: FAMOTIDINE 20 MG/2 ML VIAL IV SCH (08:13)
[2019-03-11] MEDS: DILTIAZEM CD 180 MG CAP.ER.24H PO SCH (08:13)
[2019-03-11] MEDS: LORATADINE 10 MG TAB PO SCH (08:13)
[2019-03-11] MEDS: ACYCLOVIR 200 MG CAP PO SCH (08:13)
[2019-03-11] MEDS: HEPARIN SODIUM,PORCINE 5,000 UNIT/ML 1 ML VIAL SQ SCH ×2 (08:14→10:39)
[2019-03-11] MEDS: FILGRASTIM-SNDZ 480 MCG/0.8 ML SYRINGE SQ SCH (08:14)
[2019-03-11] MEDS: POLYETHYLENE GLYCOL 3350 17 GM POWD.PACK PO SCH (08:22)
[2019-03-11] MEDS: FLUTICASONE 50MCG/SPRAY NASAL 16GM EA NOSTRIL SCH (08:22)
--- NOTE | 2019-03-11 09:45 | CDI ---
Documentation Clarification Form Date: 03/11/2019 9:30:19 AM From: Judi Gomez RN CCDS Admit Date: 03/08/2019 2:01:00 PM Patient Name: Santa Lopez Visit Number: [id number] Discharge Date: ATTENTION: The Clinical Documentation Specialists (CDI) and [facility] Coding Staff appreciate your assistance in clarifying documentation. Please respond to the clarification below the line at the bottom and electronically sign. The CDI & [facility] Coding staff will review the response and follow-up if needed. Please note: Queries are made part of the Legal Health Record. If you have any questions, please contact the author of this message via ITS. Dr. Raf Crow Bacteremia documented in your progress note 03/10/2019. Patient history/risk factors: 63 y/o male presents to the ED for nausea and vomiting. Medical history Breast cancer; metastatic lesions to bones. Recently completed radiation therapy and is on oral chemotherapy. Clinical Indicators: WBC: 03/05/2019 1.6; Left Shift 86 Blood Culture: Staphylococcus lugdunenisis Consult: ID Treatment: Antibiotics Vancomycin ivpb Bacteremia is considered a lab finding. Please clarify if that lab finding is clinical indicator of a more definitive medical diagnosis such as: Sepsis Infectious Process, please specify: Other, please specify Unable to determine (Last Revision: May 2017) Other, please specify Skin contaminant MTDD
[2019-03-11] MEDS: TRIAMCINOLONE 0.1% CREAM 80 GM TUBE TOPICAL SCH (10:39)
--- NOTE | 2019-03-11 10:56 | P.PN ---
Subjective Progress Note Date: 03/11/19 Principal diagnosis: Odynohagia secondary radiation esophagitis Pt doing well today, topicals are managing skin toxicities, carafate is helping the throat, she is having oozing of blood from heparin injection sites. No other c/o today. Objective - Vital Signs Vital signs: Vital Signs Temp 98.3 F 03/11/19 07:25 Pulse 94 03/11/19 07:25 Resp 16 03/11/19 07:25 BP 109/76 03/11/19 07:25 Pulse Ox 97 03/11/19 07:25 Intake & Output 03/10/19 03/11/19 03/11/19 18:59 06:59 18:59 Intake Total 1882 0 Balance 1882 0 Intake: Intake, IV Titration 925 Amount Sodium Chloride 0.9% 1, 425 000 ml @ 75 mls/hr IV . [id number] [facility] Rx#:[id number] Vancomycin 2,000 mg In 500 Sodium Chloride 0.9% 500 ml 500 ml @ 167 mls/hr IVPB Q12H [facility] Rx#: [id number] Oral 957 0 Other: Voiding Method Toilet # Voids 2 - Constitutional General appearance: Present: cooperative, morbidly obese - EENT Eyes: Present: anicteric sclerae, EOMI ENT: Present: hearing grossly normal, normal oropharynx - Respiratory Details: respirations even and unlabored - Cardiovascular Details: radial pulse 2+, regular, mild BLE edema - Gastrointestinal General gastrointestinal: Present: soft - Integumentary Integumentary Comment(s): anterior chest skin is well healed, skin on the back is healing well, redness, some areas of epidermal excoriation, no drainage - Neurologic Neurologic: Present: CNII-XII intact - Musculoskeletal Musculoskeletal: Present: strength equal bilaterally - Psychiatric Psychiatric: Present: A&O x's 3, appropriate affect, intact judgment & insight - Labs CBC & Chem 7: 03/11/19 05:19 03/11/19 05:19 Labs: Abnormal Lab Results - Last 24 Hours (Table) 03/10/19 03/11/19 03/11/19 Range/Units 07:24 05:19 05:19 RBC 2.75 L (3.80-5.40) m/uL Hgb 9.7 L (11.4-16.0) gm/dL Hct 29.5 L (34.0-46.0) % MCV 107.4 H (80.0-100.0) fL MCH 35.2 H (25.0-35.0) pg Plt Count 146 L (150-450) k/uL Lymphocytes # (Manual) 0.39 L (1.0-4.8) k/uL Myelocytes # (Manual) 0.04 H (0) k/uL Promyelocytes # (Man) 0.04 H (0) k/uL Nucleated RBCs 3 H (0-0) /100 WBC Calcium 8.2 L (8.4-10.2) mg/dL Microbiology - Last 24 Hours (Table) 03/08/19 18:16 Blood Culture - Preliminary Blood No Growth after 48 hours 03/08/19 17:44 Blood Culture - Preliminary Blood No Growth after 48 hours 03/05/19 14:57 Blood Culture Gram Stain - Final Blood Blood Culture - Final Staphylococcus lugdunenisis Assessment and Plan (1) Odynophagia Narrative/Plan: Secondary to radiation. Pt is able to tolerate moderate oral intake, carafate is working well for her, Erx done. Current Visit: Yes Status: Acute Priority: High Code(s): R13.10 - DYSPHAGIA, UNSPECIFIED SNOMED Code(s): 93309785 (2) Metastatic breast carcinoma Narrative/Plan: Hold Ibrance, cont femara, xgeva monthly. Plan was for PET this Sat, will discuss with Primary Oncologist, may postpone due esophagitis. Will contact pt with update Hold Ibrance until evaluated, pt already has an appt scheduled. Current Visit: Yes Status: Chronic Priority: Medium Code(s): C50.919 - MALIGNANT NEOPLASM OF UNSP SITE OF UNSPECIFIED FEMALE BREAST SNOMED Code(s): 781061211 (3) Nausea and vomiting Current Visit: Yes Status: Resolved Code(s): R11.2 - NAUSEA WITH VOMITING, UNSPECIFIED SNOMED Code(s): 22033234 (4) Radiation-induced dermatitis Narrative/Plan: is doing a fine job of managing dermatitis, cont care as prescribed. Current Visit: Yes Status: Acute Priority: High Code(s): L58.9 - RADIODERMATITIS, UNSPECIFIED SNOMED Code(s): 26694944 Plan: Pt did miss her appt with Dr. Otto so, will provide her with 3 day Rx for her norco as she sees him next week.
--- NOTE | 2019-03-11 13:47 | P.PN ---
Subjective Patient says that she vomited this morning but is feeling better since She denies any abdominal pain History said that her breathing is better The bone of the back of the neck is better as per the patient 03/11/2019 Says that she's doing fine today. She is tolerating food. Her dermatitis is better She had a small bowel movement No abdominal pain, no nausea and vomiting. No chest pain racing heart, no cough or shortness of breath Objective - Vital Signs Vital signs: Vital Signs Temp 98.3 F 03/11/19 07:25 Pulse 84 03/11/19 11:00 Resp 16 03/11/19 07:25 BP 109/76 03/11/19 07:25 Pulse Ox 97 03/11/19 07:25 Intake & Output 03/10/19 03/11/19 03/11/19 18:59 06:59 18:59 Intake Total 1882 240 Balance 1882 240 Intake: Intake, IV Titration 925 Amount Sodium Chloride 0.9% 1, 425 000 ml @ 75 mls/hr IV . [id number] [facility] Rx#:[id number] Vancomycin 2,000 mg In 500 Sodium Chloride 0.9% 500 ml 500 ml @ 167 mls/hr IVPB Q12H [facility] Rx#: [id number] Oral 957 240 Other: Voiding Method Toilet # Voids 2 - Exam On exam, alert and oriented x3. HEENT: Conjunctivae normal. eyes normal. NECK: No JVD. No thyroid enlargement. No LNs CARDIOVASCULAR: S1-S2 positive RESPIRATION: Breath sounds are regular wasn't her current residence wheezing ABDOMEN: Soft, nontender . No guarding. no masses palpable. No ascites, No hepatosplenomegaly.Bowel sounds heard. Patient is having some oozing at the site of the subcu heparin injection is controlled right now with pressure dressing LEGS: No edema. no swelling NERVOUS SYSTEM: Cranial N 2-12 grossly normal. Moves all 4 limbs. No focal deficits. No sensory deficit. No signs of cerebellar dysfucntion. Skin: Patient is having garcia at the back due to radiation - Labs CBC & Chem 7: 03/11/19 05:19 03/11/19 05:19 Labs: Abnormal Lab Results - Last 24 Hours (Table) 03/11/19 03/11/19 Range/Units 05:19 05:19 RBC 2.75 L (3.80-5.40) m/uL Hgb 9.7 L (11.4-16.0) gm/dL Hct 29.5 L (34.0-46.0) % MCV 107.4 H (80.0-100.0) fL MCH 35.2 H (25.0-35.0) pg Plt Count 146 L (150-450) k/uL Calcium 8.2 L (8.4-10.2) mg/dL Microbiology - Last 24 Hours (Table) 03/08/19 18:16 Blood Culture - Preliminary Blood No Growth after 48 hours 03/08/19 17:44 Blood Culture - Preliminary Blood No Growth after 48 hours 03/05/19 14:57 Blood Culture Gram Stain - Final Blood Blood Culture - Final Staphylococcus lugdunenisis Assessment and Plan Assessment: Intractable nausea and vomiting and throat pain likely due to radiation related esophagitis. Pancytopenia secondary to chemotherapy improving Postnasal drip with possible acute sinusitis. Coagulase-negative bacteremia with MSSA, however repeat blood culture from the results are still pending for coagulase-negative staph Metastatic breast cancer to bones and liver. Currently completed radiation therapy. Patient is also on oral chemotherapy. Chills without any reported fever History of breast cancer was a diagnosis in 1997 Previous history of smoking and emphysematous changes in the lungs. Hypertension Hyperlipidemia History of CVA with mild left-sided weakness Plan - Patient is on IV vancomycin. ID following the cultures. Her previous blood cultures are positive for coag-negative staph - Hematology following the patient. Her WBC is coming up nicely - Patient says that she was constipated. We'll add MiraLAX and see how she does - Continue rest of the medical care 03/11/2019 - She was continued on vancomycin. Will await Sunday's final recommendations regarding antibiotics - WBC improving - Continue rest of the medical care - Hematology oncology following the patient. Chemo recommendations as per oncology. Patient will probably be scheduled for a PET scan
[2019-03-11 15:34] VITALS: BP 111/64; PULSE 92; RESP 19; TEMP 98.6
[2019-03-11] MEDS: LETROZOLE 2.5 MG TAB PO SCH ×2 (17:07→18:41)
[2019-03-11] MEDS ORDERED: VANCOMYCIN 1,750 MG in SODIUM CHLORIDE 0.9% 500 ML 500 ML IVPB SCH (18:00)
[2019-03-11] MEDS ORDERED: FAMOTIDINE 20 MG TAB PO SCH (21:00)
--- NOTE | 2019-03-11 21:20 | P.PN ---
Subjective Progress Note Date: 03/11/19 Pleasant 63-year-old female is a complex past medical history regarding her breast carcinoma. 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 Because of increasing pain and neurological difficulties she was evaluated is now receiving radiation therapy to the cervical and thoracic spine. 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 She had increasing difficulties trying to ingest any foods or fluids. Should he feel very poorly and constantly present emergency center. She's having treated with some pain medication and topical therapies and is feeling somewhat better. With several positive blood cultures the infectious diseases consultation was requested. The patient thinks she may have had a fever but is certain he has not persistent at this time. She does feel very poorly but better today than 24 hours ago. 03/09/2019 the patient is feeling slowly better today. She found that the Carafate was really quite helpful and we have requested this to continue. She is not having further fevers or chills and the topical therapies are helping her significant discomfort from her radiation dermatitis. 03/10/2019 patient does feel somewhat better today. The Carafate has definitely helped her discomfort with swallowing. The Silvadene is soothing her radiation dermatitis. She didn't have any significant fevers. The leukopenia is resolving. March 11 2019 patient is now feeling considerably better. She finds that if she does not take the Carafate she is still having significant discomfort when swallowing. But with Carafate is having a good response. At this time she has had some further improvement. The case is discussed with the oncology team. She's ready for discharge to home. Objective - Vital Signs Vital signs: Vital Signs Temp 98.6 F 03/11/19 15:20 Pulse 92 03/11/19 15:20 Resp 19 03/11/19 15:20 BP 111/64 03/11/19 15:20 Pulse Ox 100 03/11/19 15:20 Intake & Output 03/11/19 03/11/19 03/12/19 06:59 18:59 06:59 Intake Total 540 Balance 540 Intake: Oral 540 Other: Voiding Method Toilet # Voids 1 - Exam HEENT: Anicteric conjunctiva are pink and moist nasal mucosa grossly intact without significant lesions, there is no thrush. Neck: The neck reveals evidence of some diminished range of motion that is not new, there is evidence of the extensive erythema anterior posterior from the radiation windowless from the recent treatment of the bony metastasis to the spine. Lungs: Good bilateral air entry without significant crackles few wheezes. There is no significant bronchial sounds. There is no egophony or dullness. Heart: Regular rate and rhythm with an audible S1-S2, no S3 no S4. There is no significant murmur click or rub, PMI was nondisplaced. Abdomen:obese Positive bowel sounds soft and nontender without palpable masses or organomegaly. There was no guarding or rebound. Extremities: The upper extremities have excellent pulses they are symmetric, no significant petechiae or telangiectasia. No splinter hemorrhages were noted. The lower extremities are free from significant edema. The peripheral pulses were 2+ and symmetric. Neuro: Awake alert oriented to person place and time. There are no acute new gross focal sensory motor deficits. - Labs CBC & Chem 7: 03/11/19 05:19 03/11/19 05:19 Labs: Abnormal Lab Results - Last 24 Hours (Table) 03/11/19 03/11/19 Range/Units 05: 05:19 RBC 2.75 L (3.80-5.40) m/uL Hgb 9.7 L (11.4-16.0) gm/dL Hct 29.5 L (34.0-46.0) % MCV 107.4 H (80.0-100.0) fL MCH 35.2 H (25.0-35.0) pg Plt Count 146 L (150-450) k/uL Calcium 8.2 L (8.4-10.2) mg/dL Microbiology - Last 24 Hours (Table) 03/08/19 18:16 Blood Culture - Preliminary Blood No Growth after 72 hours 03/08/19 17:44 Blood Culture - Preliminary Blood No Growth after 72 hours Laboratory Results WBC 5.2 k/uL (3.8-10.6) 03/11/19 05:19 RBC 2.75 m/uL (3.80-5.40) L 03/11/19 05:19 Hgb 9.7 gm/dL (11.4-16.0) L 03/11/19 05:19 Hct 29.5 % (34.0-46.0) L 03/11/19 05:19 MCV 107.4 fL (80.0-100.0) H 03/11/19 05:19 MCH 35.2 pg (25.0-35.0) H 03/11/19 05:19 MCHC 32.8 g/dL (31.0-37.0) 03/11/19 05:19 RDW 14.3 % (11.5-15.5) 03/11/19 05:19 Plt Count 146 k/uL (150-450) L 03/11/19 05:19 Neutrophils % Not Reportable 03/08/19 06:40 Neutrophils % (Manual) 72 % 03/10/19 07:24 Band Neutrophils % 6 % 03/10/19 07:24 Lymphocytes % Not Reportable 03/08/19 06:40 Lymphocytes % (Manual) 10 % 03/10/19 07:24 Monocytes % Not Reportable 03/08/19 06:40 Monocytes % (Manual) 11 % 03/10/19 07:24 Eosinophils % Not Reportable 03/08/19 06:40 Eosinophils % (Manual) 2 % 03/10/19 07:24 Basophils % Not Reportable 03/08/19 06:40 Metamyelocytes % 1 % 03/09/19 06:52 Myelocytes % 1 % 03/10/19 07:24 Promyelocytes % 1 % 03/10/19 07:24 Neutrophils # Not Reportable 03/08/19 06:40 Neutrophils # (Manual) 3.00 k/uL (1.3-7.7) 03/10/19 07:24 Lymphocytes # Not Reportable 03/08/19 06:40 Lymphocytes # (Manual) 0.39 k/uL (1.0-4.8) L 03/10/19 07:24 Monocytes # Not Reportable 03/08/19 06:40 Monocytes # (Manual) 0.43 k/uL (0-1.0) 03/10/19 07:24 Eosinophils # Not Reportable 03/08/19 06:40 Eosinophils # (Manual) 0.08 k/uL (0-0.7) 03/10/19 07:24 Basophils # Not Reportable 03/08/19 06:40 Metamyelocytes # (Man) 0.03 k/uL (0) H 03/09/19 06:52 Myelocytes # (Manual) 0.04 k/uL (0) H 03/10/19 07:24 Promyelocytes # (Man) 0.04 k/uL (0) H 03/10/19 07:24 Nucleated RBCs 3 /100 WBC (0-0) H 03/10/19 07:24 Differential Comment 03/07/19 06:54 Manual Slide Review Performed 03/10/19 07:24 Polychromasia Present 03/10/19 07:24 Poikilocytosis (manual Present 03/10/19 07:24 Anisocytosis (manual) Present 03/05/19 14:53 Macrocytosis Moderate 03/11/19 05:19 Rouleaux Present 03/10/19 07:24 PT 9.9 sec (9.0-12.0) 03/05/19 14:53 INR 0.9 (<1.2) 03/05/19 14:53 APTT 23.9 sec (22.0-30.0) 03/05/19 14:53 Sodium 142 mmol/L (137-145) 03/11/19 05:19 Potassium 3.6 mmol/L (3.5-5.1) 03/11/19 05:19 Chloride 107 mmol/L (98-107) 03/11/19 05:19 Carbon Dioxide 30 mmol/L (22-30) 03/11/19 05:19 Anion Gap 5 mmol/L 03/11/19 05:19 BUN 10 mg/dL (7-17) 03/11/19 05:19 Creatinine 0.82 mg/dL (0.52-1.04) 03/11/19 05:19 Est GFR (CKD-EPI)AfAm 88 (>60 ml/min/1.73 sqM) 03/11/19 05:19 Est GFR (CKD-EPI)NonAf 77 (>60 ml/min/1.73 sqM) 03/11/19 05:19 Glucose 97 mg/dL (74-99) 03/11/19 05:19 Calcium 8.2 mg/dL (8.4-10.2) L 03/11/19 05:19 Total Bilirubin 1.0 mg/dL (0.2-1.3) 03/08/19 06:40 AST 67 U/L (14-36) H 03/08/19 06:40 ALT 49 U/L (9-52) 03/08/19 06:40 Alkaline Phosphatase 50 U/L (38-126) 03/08/19 06:40 Total Protein 5.4 g/dL (6.3-8.2) L 03/08/19 06:40 Albumin 2.7 g/dL (3.5-5.0) L 03/08/19 06:40 CA 15-3 Antigen 114.2 U/mL (0.0-32.3) H 03/06/19 07:02 CA 27-29 135.7 U/mL (0.0-38.5) H 03/06/19 07:02 Urine Color Yellow 03/06/19 18:30 Urine Appearance Cloudy (Clear) H 03/06/19 18:30 Urine pH 6.5 (5.0-8.0) 03/06/19 18:30 Ur Specific [place] 1.024 (1.001-1.035) 03/06/19 18:30 Urine Protein 1+ (Negative) H 03/06/19 18:30 Urine Glucose (UA) Negative (Negative) 03/06/19 18:30 Urine Ketones Negative (Negative) 03/06/19 18:30 Urine Blood Small (Negative) H 03/06/19 18:30 Urine Nitrite Negative (Negative) 03/06/19 18:30 Urine Bilirubin Negative (Negative) 03/06/19 18:30 Urine Urobilinogen 8.0 mg/dL (<2.0) 03/06/19 18:30 Ur Leukocyte Esterase Small (Negative) H 03/06/19 18:30 Urine RBC 3 /hpf (0-5) 03/06/19 18:30 Urine WBC 5 /hpf (0-5) 03/06/19 18:30 Ur Squamous Epith Cells 2 /hpf (0-4) 03/06/19 18:30 Urine Mucus Few /hpf (None) H 03/06/19 18:30 Vancomycin Trough 20.5 ug/mL 03/11/19 05:19 Group A Strep Rapid Negative (Negative) 03/05/19 15:10 Microbiology 03/08/19 18:16 Blood Blood Culture - Preliminary No Growth after 72 hours 03/08/19 17:44 Blood Blood Culture - Preliminary No Growth after 72 hours 03/05/19 14:57 Blood Blood Culture Gram Stain - Final 03/05/19 14:57 Blood Blood Culture - Final Staphylococcus lugdunenisis 03/06/19 14:50 Blood Blood Culture Gram Stain - Final 03/06/19 14:50 Blood Blood Culture - Final Staphylococcus lugdunenisis 03/05/19 15:10 Throat Group A Strep Throat Culture - Final 03/06/19 14:50 Blood Blood Culture - Final 03/05/19 14:57 Blood Blood Culture - Final Assessment and Plan (1) Nausea and vomiting Status: Resolved Code(s): R11.2 - NAUSEA WITH VOMITING, UNSPECIFIED SNOMED Code(s): 13125025 (2) Radiation-induced dermatitis Status: Acute Priority: High Code(s): L58.9 - RADIODERMATITIS, UNSPECIFIED SNOMED Code(s): 67496760 (3) Metastatic breast carcinoma Status: Chronic Priority: Medium Code(s): C50.919 - MALIGNANT NEOPLASM OF UNSP SITE OF UNSPECIFIED FEMALE BREAST SNOMED Code(s): 485680627 (4) Gram-positive cocci bacteremia Narrative/Plan: 63-year-old woman presents to hospital with increasing difficulties with eating and drinking, so see was some nausea some minimal amount of emesis increasing fatigue and malaise and increasing pain. The patient believes she Loretta had a fever but this is not been highly persistent throughout the hospital stay. She does have difficulties with radiation dermatitis both anterior and posterior kitty und the spine where she was receiving the therapy for her bony metastasis. Topical therapy with triamcinolone alternating with Silvadene has been requested. She also has difficulties with radiation esophagitis and Carafate been requested since she is intolerant of the cools solution. Antibiotic therapy as well as vancomycin given the multiple positive blood cultures for gram-positive cocci. However careful analysis reveals that truly would only be 2 cultures that have been noted so far. They've asked for further blood cultures and very careful cleansing of the skin to ensure no contaminati on. We'll continue antibiotics for now until we have further data. 03/09/2019 reveals the patient be feeling slightly better today. The Carafate was quite helpful in helping her with her significant dysphagia. The topical therapies are also helping her sitting and skin discomfort. She was doing well with current antibiotic therapy of vancomycin. It is noted there were several positive blood cultures and follow blood cultures are pending at this point in time. Routine a coagulase-negative staph is not of great concern however given her immunocompromised status and significant open skin ulcerations is concerning for the moment. Follow-up cultures will help determine her course of therapy. 03/10/2019 the patient has had some further improvement. Carafate as help or dysphagia. Fevers have resolved. The positive blood cultures are with coagulase-negative staph and follow blood cultures are negative. These do appear to be contamination and she does not have any indwelling port. Would not need ongoing or long-term intravenous antibiotic therapy. However will do well to have some antibiotic therapy regarding the radiation dermatitis and open wounds her relative leukopenia. We'll work with oncology as to her discharge plan. 03/11/2019 Patient has had further improvement in her status. The radiation dermatitis is improving responding well to topical therapy including Silvadene. The radiation esophagitis is also showing improvement with utilization of Carafate. She is aware that she has taken before her meals and then when necessary in between if she is having significant difficulty. She's ready for discharge to home and this is been discussed with the oncology team. For antimicrobial therapy cefadroxil 500 mg every 12 hours sent to her pharmacy and should follow-up with her oncologist next week. With the radiation esophagitis her PET scan apparently will be rescheduled for at least a week out to ensure improvement of that inflammation. Status: Acute Code(s): R78.81 - BACTEREMIA SNOMED Code(s): 343113137875
== END 2019-03-11 20:00 | disposition home or self-care (01) | DRG 391 ==
LOC: EC 14:03 → 4SSUR 16:57 → INTOOBSV 16:57 → OBSVTOIN 03-08 14:01
PROVIDERS: ADMIT Internal Medicine; ATTEND Internal Medicine
DX: K20.8 Other esophagitis (principal); D61.810 Antineoplastic chemotherapy induced pancytopenia; I69.354 Hemiplegia and hemiparesis following cerebral infarction affecting left non-dominant side; C79.51 Secondary malignant neoplasm of bone; C78.7 Secondary malignant neoplasm of liver and intrahepatic bile duct; Z68.43 Body mass index [BMI] 50.0-59.9, adult; E66.01 Morbid (severe) obesity due to excess calories; R13.19 Other dysphagia; J43.9 Emphysema, unspecified; T21.11XA Burn of first degree of chest wall, initial encounter; L58.9 Radiodermatitis, unspecified; G89.3 Neoplasm related pain (acute) (chronic); J01.90 Acute sinusitis, unspecified; I10 Essential (primary) hypertension; K59.00 Constipation, unspecified; E78.5 Hyperlipidemia, unspecified; T45.1X5A Adverse effect of antineoplastic and immunosuppressive drugs, initial encounter; Z79.82 Long term (current) use of aspirin; Z79.811 Long term (current) use of aromatase inhibitors; Z79.899 Other long term (current) drug therapy; Z85.3 Personal history of malignant neoplasm of breast; Z71.3 Dietary counseling and surveillance; Z90.710 Acquired absence of both cervix and uterus; Z92.3 Personal history of irradiation; Z87.891 Personal history of nicotine dependence; Z96.652 Presence of left artificial knee joint; Z98.890 Other specified postprocedural states; Y84.2 Radiological procedure and radiotherapy as the cause of abnormal reaction of the patient, or of later complication, without mention of misadventure at the time of the procedure
CPT/HCPCS: 36415; 71046; 71275; 74230; 80048; 80053; 80202; 81001; 85025; 85027; 85610; 85730; 86300; 87040; 87077; 87081; 87186; 87430; 93005; 94640; 96374; 96375; 99285

== ENCOUNTER → 2019-03-15 | Outpatient (CLI) | payer OTHER ==
--- NOTE | 2019-03-17 09:19 | PE ---
Nuclear medicine PET/CT HISTORY: Breast carcinoma, subsequent Patient received 11.6 mCi F-18 FDG intravenously and delayed scanning was performed from the skull ba se to the mid thighs. Localization and attenuation correction CT scan was performed and correlated to prior exam dated 11/09/2018 Neck and chest: There is no evident cervical or supraclavicular adenopathy. No mediastinal, axillary, or hilar adenopathy. No suspicious hypermetabolic uptake. There is no evident lung mass. No pleural or pericardial effusion. There are calcifications at the root of the aorta, metallic densities. Coron armaan calcifications are present. ABDOMEN: There is a focus of increased radio pharmaceutical uptake present within the right lobe of t he liver which is not seen on prior exam. No definite mass on noncontrast exam. No retroperitoneal ad enopathy. No evident ascites. The spleen is enlarged and the enlargement has developed in the interva l. There are atheromatous changes within the aorta. Osseous structures show sclerotic changes compatible with metastatic disease similar to prior exam. T here is hypermetabolic uptake noted within the bilateral posterior ilium associated with a sclerotic foci as well as within the sacrum on the right, right iliac wing and left ilium and posterior ischium . SUV calculation affected by patient body habitus. IMPRESSION: Difficult to exclude interval metastasis to the liver. Liver MRI may be of benefit. Bony metastatic disease shows hypermetabolic uptake which has developed in the interval. Interval splenome kemal.
== END | disposition home or self-care (01) ==
LOC: RADPETMAIN 08:31
PROVIDERS: ATTEND Internal Medicine Hematology & Oncology
DX: C50.112 Malignant neoplasm of central portion of left female breast (principal); C79.51 Secondary malignant neoplasm of bone; R16.1 Splenomegaly, not elsewhere classified; Z92.21 Personal history of antineoplastic chemotherapy
CPT/HCPCS: 78815; A9552

== ENCOUNTER 2019-04-30 10:48 | Inpatient (IN) | payer OTHER ==
[2019-04-30] MEDS ORDERED: SODIUM CHLORIDE 0.9% 1,000 ML IV STA (11:21)
--- NOTE | 2019-04-30 11:24 | ED ---
Weakness HPI - General Chief complaint: Weakness Stated complaint: lethargic, vomiting Time Seen by Provider: 04/30/19 11:13 Source: patient, RN notes reviewed, old records reviewed Mode of arrival: wheelchair Limitations: no limitations - History of Present Illness Initial comments: This is a 60-year-old female the ER for evaluation patient presents today with weakness and fever. Patient to new chemotherapy meds 2 weeks. Recent hospital admission for refill. Patient has history of breast cancer with metastasis to spine and liver. Patient was started on medications of blood cultures started with better. She does get occasional fevers takes Tylenol and knows really resolved. Patient's or with mild shortness of breath weakness and cough. No lower extremity edema. No history of PE per patient no history of DVT. No current fever. Patient is complaining of increasing weakness not feeling well shortness of breath. She states this happens to her about once a month multiple hospital admissions for the same MD Complaint: generalized weakness, lack of energy (And fever) -: days(s) Location: generalized Severity: moderate Severity scale (1-10): 5 Quality: constant Consistency: constant Improves with: none Worsens with: medication (Chemotherapy medication), movement Context: new medication, recent illness, history of similar Associated Symptoms: dysuria, fever/chills, nausea/vomiting, shortness of breath - Related Data Home Medications Medication Instructions Recorded Confirmed Aspirin [Adult Low Dose Aspirin EC] 162 mg PO DAILY 07/03/18 04/30/19 Atorvastatin [Lipitor] 40 mg PO HS 07/03/18 04/30/19 Diltiazem HCl [Diltiazem 24Hr ER 180 mg PO DAILY 07/03/18 04/30/19 (CD)] Albuterol Inhaler [Ventolin Hfa 2 puff INHALATION RT-QID PRN 03/05/19 04/30/19 Inhaler] Fluticasone Nasal [place] [Flonase 1 spray EA NOSTRIL DAILY 03/05/19 04/30/19 Nasal [place]] Furosemide [Lasix] 40 mg PO DAILY 03/05/19 04/30/19 Gabapentin [Neurontin] 300 mg PO DAILY 03/05/19 04/30/19 Gabapentin [Neurontin] 600 mg PO HS 03/05/19 04/30/19 Letrozole [Femara] 2.5 mg PO DAILY 03/05/19 04/30/19 Montelukast [Singulair] 10 mg PO HS 03/05/19 04/30/19 Omeprazole 20 mg PO DAILY 03/05/19 04/30/19 Potassium Chloride 20 meq PO DAILY 03/05/19 04/30/19 Palbociclib [Ibrance] 125 mg PO DIRECTED 04/30/19 04/30/19 Previous Rx's Medication Instructions Recorded HYDROcodone/APAP 5-325MG [[place] 1 tab PO Q8HR PRN 3 Days #9 tab 03/11/19 5-325] Polyethylene Glycol 3350 [Miralax] 17 gm PO DAILY PRN #30 powd.pack 03/11/19 Sucralfate [Carafate] 1 gm PO ACHS #120 tablet 03/11/19 Allergies Allergy/AdvReac Type Severity Reaction Status Date / Time No Known Allergies Allergy Verified 04/30/19 11:41 Review of Systems ROS Statement: Those systems with pertinent positive or pertinent negative responses have been documented in the HPI. ROS Other: All systems not noted in ROS Statement are negative. Past Medical History Past Medical History: Cancer, CVA/TIA, Hyperlipidemia, Hypertension Additional Past Medical History / Comment(s): hx CVA left side 2018, Left breast cancer 1997, spine cancer 2017 History of Any Multi-Drug Resistant Organisms: None Reported Past Surgical History: Breast Surgery, Hysterectomy, Joint Replacement Additional Past Surgical History / Comment(s): left knee replacement, several breast biopsies Past Anesthesia/Blood Transfusion Reactions: No Reported Reaction Past Psychological History: No Psychological Hx Reported Smoking Status: Former smoker Past Alcohol Use History: Rare Past Drug Use History: None Reported General Exam Limitations: no limitations General appearance: alert, in no apparent distress, anxious, obese Head exam: Present: atraumatic, normocephalic, normal inspection Eye exam: Present: normal appearance, PERRL, EOMI. Absent: scleral icterus, conjunctival injection, periorbital swelling ENT exam: Present: normal exam, mucous membranes moist Neck exam: Present: normal inspection. Absent: tenderness, meningismus, lymphadenopathy Respiratory exam: Present: wheezes, accessory muscle use, decreased breath sounds, prolonged expiratory. Absent: respiratory distress, rales, rhonchi, stridor Cardiovascular Exam: Present: regular rate, normal rhythm, normal heart sounds. Absent: systolic murmur, diastolic murmur, rubs, gallop, clicks GI/Abdominal exam: Present: soft, normal bowel sounds. Absent: distended, ten derness, guarding, rebound, rigid Extremities exam: Present: normal inspection, full ROM, normal capillary refill. Absent: tenderness, pedal edema, joint swelling, calf tenderness Back exam: Present: normal inspection Neurological exam: Present: alert, oriented X3, CN II-XII intact Psychiatric exam: Present: normal affect, normal mood Skin exam: Present: warm, dry, intact, normal color. Absent: rash Course Vital Signs 04/30/19 11:09 Temperature 99.4 F Pulse Rate 99 Respiratory 16 Rate Blood Pressure 103/62 O2 Sat by Pulse 94 L Oximetry - Reevaluation(s) Reevaluation #1: 04/30/19 11:24 Medical records reviewed Reevaluation #2: 04/30/19 14:03 Patient with no significant improvement in the ER still feeling very weak with cough - Consultations Consultation #1: spoke w Dr Rogers re patient he is agreeable for admission Medical Decision Making - Medical Decision Making 63 female the ER for evaluation of weakness. Patient states she has fever at home cough pneumonia on x-ray. Patient also dehydrated with mild renal failure which is new, patient will be admitted for hydration, treatment of pneumonia - Lab Data Result diagrams: 04/30/19 11:43 04/30/19 11:43 Lab Results 04/30/19 04/30/19 04/30/19 Range/Units 11:43 11:43 11:43 WBC 2.3 L (3.8-10.6) k/uL RBC 2.75 L (3.80-5.40) m/uL Hgb 9.2 L (11.4-16.0) gm/dL Hct 27.3 L (34.0-46.0) % MCV 99.1 D (80.0-100.0) fL MCH 33.6 (25.0-35.0) pg MCHC 33.9 (31.0-37.0) g/dL RDW 16.9 H (11.5-15.5) % Plt Count 47 L D (150-450) k/uL Neutrophils % 88 % Lymphocytes % 3 % Monocytes % 3 % Eosinophils % 2 % Basophils % 0 % Neutrophils # 2.1 (1.3-7.7) k/uL Lymphocytes # 0.1 L (1.0-4.8) k/uL Monocytes # 0.1 (0-1.0) k/uL Eosinophils # 0.1 (0-0.7) k/uL Basophils # 0.0 (0-0.2) k/uL Manual Slide Review Performed Large Platelets Present Anisocytosis Slight Macrocytosis Slight Sodium 130 L (137-145) mmol/L Potassium 3.6 (3.5-5.1) mmol/L Chloride 98 (98-107) mmol/L Carbon Dioxide 22 (22-30) mmol/L Anion Gap 10 mmol/L BUN 38 H (7-17) mg/dL Creatinine 2.69 H (0.52-1.04) mg/dL Est GFR (CKD-EPI)AfAm 21 (>60 ml/min/1.73 sqM) Est GFR (CKD-EPI)NonAf 18 (>60 ml/min/1.73 sqM) Glucose 131 H (74-99) mg/dL Plasma Lactic Acid Jon 1.5 (0.7-2.0) mmol/L Calcium 7.1 L (8.4-10.2) mg/dL Phosphorus 2.6 (2.5-4.5) mg/dL Magnesium 2.0 (1.6-2.3) mg/dL Total Bilirubin 1.2 (0.2-1.3) mg/dL AST 84 H (14-36) U/L ALT 41 (9-52) U/L Alkaline Phosphatase 76 (38-126) U/L Total Protein 6.0 L (6.3-8.2) g/dL Albumin 2.8 L (3.5-5.0) g/dL Urine Color Urine Appearance (Clear) Urine pH (5.0-8.0) Ur Specific [place] (1.001-1.035) Urine Protein (Negative) Urine Glucose (UA) (Negative) Urine Ketones (Negative) Urine Blood (Negative) Urine Nitrite (Negative) Urine Bilirubin (Negative) Urine Urobilinogen (<2.0) mg/dL Ur Leukocyte Esterase (Negative) Urine RBC (0-5) /hpf Urine WBC (0-5) /hpf Urine WBC Clumps (None) /hpf Ur Squamous Epith Cells (0-4) /hpf Urine Bacteria (None) /hpf Urine Mucus (None) /hpf Influenza Type A RNA (Not Detectd) Influenza Type B (PCR) (Not Detectd) 04/30/19 04/30/19 Range/Units 13:00 13:04 WBC (3.8-10.6) k/uL RBC (3.80-5.40) m/uL Hgb (11.4-16.0) gm/dL Hct (34.0-46.0) % MCV (80.0-100.0) fL MCH (25.0-35.0) pg MCHC (31.0-37.0) g/dL RDW (11.5-15.5) % Plt Count (150-450) k/uL Neutrophils % % Lymphocytes % % Monocytes % % Eosinophils % % Basophils % % Neutrophils # (1.3-7.7) k/uL Lymphocytes # (1.0-4.8) k/uL Monocytes # (0-1.0) k/uL Eosinophils # (0-0.7) k/uL Basophils # (0-0.2) k/uL Manual Slide Review Large Platelets Anisocytosis Macrocytosis Sodium (137-145) mmol/L Potassium (3.5-5.1) mmol/L Chloride (98-107) mmol/L Carbon Dioxide (22-30) mmol/L Anion Gap mmol/L BUN (7-17) mg/dL Creatinine (0.52-1.04) mg/dL Est GFR (CKD-EPI)AfAm (>60 ml/min/1.73 sqM) Est GFR (CKD-EPI)NonAf (>60 ml/min/1.73 sqM) Glucose (74-99) mg/dL Plasma Lactic Acid Jon (0.7-2.0) mmol/L Calcium (8.4-10.2) mg/dL Phosphorus (2.5-4.5) mg/dL Magnesium (1.6-2.3) mg/dL Total Bilirubin (0.2-1.3) mg/dL AST (14-36) U/L ALT (9-52) U/L Alkaline Phosphatase (38-126) U/L Total Protein (6.3-8.2) g/dL Albumin (3.5-5.0) g/dL Urine Color Dark Brown Urine Appearance Turbid H (Clear) Urine pH 5.0 (5.0-8.0) Ur Specific [place] 1.016 (1.001-1.035) Urine Protein 2+ H (Negative) Urine Glucose (UA) Negative (Negative) Urine Ketones Negative (Negative) Urine Blood Large H (Negative) Urine Nitrite Negative (Negative) Urine Bilirubin Negative (Negative) Urine Urobilinogen 4.0 (<2.0) mg/dL Ur Leukocyte Esterase Large H (Negative) Urine RBC >182 H (0-5) /hpf Urine WBC 40 H (0-5) /hpf Urine WBC Clumps Occasional H (None) /hpf Ur Squamous Epith Cells 13 H (0-4) /hpf Urine Bacteria Moderate H (None) /hpf Urine Mucus Occasional H (None) /hpf Influenza Type A RNA Not Detected (Not Detectd) Influenza Type B (PCR) Not Detected (Not Detectd) - Radiology Data Radiology results: report reviewed (Chest x-rays positive for pneumonia), image reviewed Disposition Clinical Impression: Dyspnea, Acute renal failure, Nosocomial pneumonia, Metastatic breast carcinoma, Fever Disposition: ADMITTED IP TO THIS HOSP Condition: Good Is patient prescribed a controlled substance at d/c from ED?: No Referrals: Beata Quintero MD [Primary Care Provider] - 1-2 days
[2019-04-30 12:24] LABS: Anisocytosis Slight; Basophils % (A) 0 %; Eosinophils # (A) 0.1 k/uL (0-0.7); Eosinophils % (A) 2 %; HCT 27.3 % (34.0-46.0); HGB 9.2 gm/dL (11.4-16.0); Lymphocytes # (A) 0.1 k/uL (1.0-4.8); Lymphocytes % (A) 3 %; MCH 33.6 pg (25.0-35.0); MCHC 33.9 g/dL (31.0-37.0); Macrocytosis Slight; Mean Platelet Volume 9.9; Monocytes # (A) 0.1 k/uL (0-1.0); Monocytes % (A) 3 %; Neutrophils # (A) 2.1 k/uL (1.3-7.7); Neutrophils % (A) 88 %; RBC 2.75 m/uL (3.80-5.40); RDW 16.9 % (11.5-15.5); WBC 2.3 k/uL (3.8-10.6)
[2019-04-30 12:42] LABS: MCV 99.1 fL (80.0-100.0)
[2019-04-30 12:45] LABS: Albumin 2.8 g/dL (3.5-5.0); Calcium 7.1 mg/dL (8.4-10.2); Phosphorus 2.6 mg/dL (2.5-4.5); Potassium 3.6 mmol/L (3.5-5.1); Total Bilirubin 1.2 mg/dL (0.2-1.3)
[2019-04-30 12:50] LABS: Large Platelets Present; Platelet Count 47 k/uL (150-450)
--- NOTE | 2019-04-30 12:52 | XR ---
EXAMINATION TYPE: XR chest 2V DATE OF EXAM: 04/30/2019 COMPARISON: 03/05/2019 HISTORY: Cough, nausea and vomiting TECHNIQUE: Frontal and lateral views of the chest are obtained. FINDINGS: Minimal strand-like right basilar airspace disease is seen medially. No pneumothorax or pl eural effusion. Pulmonary per inflation and flattening of the diaphragms is indicative of underlying COPD. The cardiac silhouette size is mildly enlarged. The osseous structures are intact. Minimal de generative changes of the spine. IMPRESSION: Right middle lobe strand-like airspace disease may represent atelectasis or pneumonia in the appropriate clinical setting.
[2019-04-30] MEDS ORDERED: HYDROcodone/APAP 5-325MG 1 EACH TAB PO STA (13:02)
[2019-04-30 13:40] LABS: Appearance,Urine Turbid (Clear); Bacteria,Urine Moderate /hpf; Bilirubin,Urine Negative (Negative); Blood,Urine Large (Negative); Color,Urine Dark Brown; Glucose,Urine (UA) Negative (Negative); Ketones,Urine Negative (Negative); Leukocyte Esterase,Urine Large (Negative); Mucus,Urine Occasional /hpf; Nitrite,Urine Negative (Negative); Protein,Urine 2+ (Negative); RBC,Urine >182 /hpf (0-5); Specific Gravity,Urine 1.016 (1.001-1.035); Squamous Epithelial Cell,Urine 13 /hpf (0-4); WBC,Urine 40 /hpf (0-5)
[2019-04-30] MEDS ORDERED: PNEUMONIA PROTOCOL UTILIZED 1 EACH MISC PO PRN (13:58)
[2019-04-30] MEDS ORDERED: AZITHROMYCIN 500 MG in SODIUM CHLORIDE 0.9% 250 ML IVPB STA (13:58)
[2019-04-30] MEDS ORDERED: cefTRIAXone IN SWFI 1,000 MG/10 ML SYRINGE IVP STA (14:03)
[2019-04-30] MEDS ORDERED: HYDROcodone/APAP 5-325MG 1 EACH TAB PO PRN (14:33)
[2019-04-30] MEDS ORDERED: ALBUTEROL NEBULIZED 2.5 MG/3 ML INHALATION PRN ×2 (14:33→16:12)
[2019-04-30] MEDS ORDERED: POLYETHYLENE GLYCOL 3350 17 GM POWD.PACK PO PRN (14:33)
--- NOTE | 2019-04-30 15:19 | P.CONS ---
History of Present Illness - Reason for Consult Consult date: 04/30/19 Metastatic Breast Cancer Requesting physician: Manish Pritchett - Chief Complaint Fever and Chills on Chemo - History of Present Illness Santa is a patient well known to us, primary oncologist Dr. Wheat. She has known metastatic Breast Cancer. Most recently progression in spiny bone and status post radiation. recent admission with increased dysphagia, secretion, and pain. Increased Shortness of breath and chills. She had open burn from radiation, these have since resolved. She has been treated most recently with Faslodex and Ibrance which will be on hold secondary to her admission for T-Max 102, Fevers and Chills. Also recent admission to [facility] with Bacteremia and UTI. Treated with Antibiotics. Review of Systems A 14 point review of systems was assessed and completed and are all negative except for HPI Past Medical History Past Medical History: Cancer, CVA/TIA, Hyperlipidemia, Hypertension Additional Past Medical History / Comment(s): hx CVA left side 2017, Left breast cancer 1997, spine cancer 2017 History of Any Multi-Drug Resistant Organisms: None Reported Past Surgical History: Breast Surgery, Hysterectomy, Joint Replacement Additional Past Surgical History / Comment(s): left knee replacement, several breast biopsies Past Anesthesia/Blood Transfusion Reactions: No Reported Reaction Past Psychological History: No Psychological Hx Reported Smoking Status: Former smoker Past Alcohol Use History: Rare Past Drug Use History: None Reported Medications and Allergies Home Medications Medication Instructions Recorded Confirmed Type Aspirin [Adult Low Dose Aspirin EC] 162 mg PO DAILY 07/03/18 04/30/19 History Atorvastatin [Lipitor] 40 mg PO HS 07/03/18 04/30/19 History Diltiazem HCl [Diltiazem 24Hr ER 180 mg PO DAILY 07/03/18 04/30/19 History (CD)] Albuterol Inhaler [Ventolin Hfa 2 puff INHALATION RT-QID PRN 03/05/19 04/30/19 History Inhaler] Fluticasone Nasal [place] [Flonase 1 spray EA NOSTRIL DAILY 03/05/19 04/30/19 History Nasal [place]] Furosemide [Lasix] 40 mg PO DAILY 03/05/19 04/30/19 History Gabapentin [Neurontin] 300 mg PO DAILY 03/05/19 04/30/19 History Gabapentin [Neurontin] 600 mg PO HS 03/05/19 04/30/19 History Letrozole [Femara] 2.5 mg PO DAILY 03/05/19 04/30/19 History Montelukast [Singulair] 10 mg PO HS 03/05/19 04/30/19 History Omeprazole 20 mg PO DAILY 03/05/19 04/30/19 History Potassium Chloride 20 meq PO DAILY 03/05/19 04/30/19 History HYDROcodone/APAP 5-325MG [[place] 1 tab PO Q8HR PRN 3 Days #9 tab 03/11/19 04/30/19 Rx 5-325] Polyethylene Glycol 3350 [Miralax] 17 gm PO DAILY PRN #30 powd.pack 03/11/19 04/30/19 Rx Sucralfate [Carafate] 1 gm PO ACHS #120 tablet 03/11/19 04/30/19 Rx Palbociclib [Ibrance] 125 mg PO DIRECTED 04/30/19 04/30/19 History Allergies Allergy/AdvReac Type Severity Reaction Status Date / Time No Known Allergies Allergy Verified 04/30/19 11:41 Physical Exam Vitals: Vital Signs Temp Pulse Resp BP Pulse Ox 04/30/19 14:53 97.3 F L 82 18 109/56 95 04/30/19 14:20 97.3 F L 82 18 109/56 95 04/30/19 11:09 99.4 F 99 16 103/62 94 L Intake and Output 04/30/19 04/30/19 04/30/19 06:59 14:59 22:59 Other: Weight 138.799 kg General: Alert and Oriented x3, No Acute Distress Head: Normocytic, Atraumatic Neck: Supple Mouth: No Lesions, No Thrush Eyes: Non-sclerotic No Palpable cervical, supraclavicular, axillary adenopathy Heart: Regular Rate, Regular Rhythm Lungs: Clear to Ausculations, No Wheeze, No Rhonchi, Diminishe bilateral lower lobes, No increased respiratory effort noted Abdomen: Soft, Non-Distended, Non-Tended, BSx4 Extremities: No Edema, Equal Strength Neurological: No Focal Defects: No sensory or motor deficits noted Psych: Calm and cooperative Results CBC & Chem 7: 04/30/19 11:43 04/30/19 11:43 Labs: Abnormal Lab Results - Last 24 Hours (Table) 04/30/19 04/30/19 04/30/19 Range/Units 11:43 11:43 13:00 WBC 2.3 L (3.8-10.6) k/uL RBC 2.75 L (3.80-5.40) m/uL Hgb 9.2 L (11.4-16.0) gm/dL Hct 27.3 L (34.0-46.0) % RDW 16.9 H (11.5-15.5) % Plt Count 47 L D (150-450) k/uL Lymphocytes # 0.1 L (1.0-4.8) k/uL Sodium 130 L (137-145) mmol/L BUN 38 H (7-17) mg/dL Creatinine 2.69 H (0.52-1.04) mg/dL Glucose 131 H (74-99) mg/dL Calcium 7.1 L (8.4-10.2) mg/dL AST 84 H (14-36) U/L Total Protein 6.0 L (6.3-8.2) g/dL Albumin 2.8 L (3.5-5.0) g/dL Urine Appearance Turbid H (Clear) Urine Protein 2+ H (Negative) Urine Blood Large H (Negative) Ur Leukocyte Esterase Large H (Negative) Urine RBC >182 H (0-5) /hpf Urine WBC 40 H (0-5) /hpf Urine WBC Clumps Occasional H (None) /hpf Ur Squamous Epith Cells 13 H (0-4) /hpf Urine Bacteria Moderate H (None) /hpf Urine Mucus Occasional H (None) /hpf Assessment and Plan Plan: Pancytopenia: - Secondary to chemotherapy with ibrance and Radiation - Hold chemotherapy at this time - Hold AC therapy platlets less than 50K Fevers and Chills: - Blood Cultures - Urine Culture - ID to Consult Acute Renal Insufficiency: - Secondary to dehydration - IVF - Monitor Daily. Metastatic Breast cancer - Bone - ?Progression - Xgeva,Faslodex and Ibrance recently prescribed at progression - XRT to spine recently completed Radiation Burn Posterior thorax: resolved. - Silvadene Neoplastic Related Pain: - Continue current pain regimen - Add bowel protocol.
[2019-04-30] MEDS: SODIUM CHLORIDE 0.9% 1,000 ML IV SCH (16:32)
[2019-04-30] MEDS: SUCRALFATE 1 GM TAB PO SCH ×2 (17:28→21:24)
[2019-04-30] MEDS: GABAPENTIN 300 MG CAP PO SCH (17:29)
[2019-04-30] MEDS ORDERED: VANCOMYCIN IV PER PHARMACY 1 EACH MISC MISCELLANE PRN (19:41)
[2019-04-30] MEDS ORDERED: VANCOMYCIN 1,500 MG in SODIUM CHLORIDE 0.9% 250 ML IVPB SCH (19:45)
[2019-04-30] MEDS: HYDROcodone/APAP 5-325MG 1 EACH TAB PO PRN (20:01)
[2019-04-30] MEDS ORDERED: IBUPROFEN 600 MG TAB PO PRN (20:03)
[2019-04-30] MEDS ORDERED: VANCOMYCIN 2,250 MG in SODIUM CHLORIDE 0.9% 500 ML 500 ML IVPB ONE (20:30)
--- NOTE | 2019-04-30 20:42 | CT ---
EXAMINATION TYPE: CT brain wo con DATE OF EXAM: 04/30/2019 COMPARISON: None HISTORY: Dizziness CT DLP: 958.5 mGycm Automated exposure control for dose reduction was used. FINDINGS: Ventricles have normal size. There is no mass effect nor midline shift. There is no sign of intracran ial hemorrhage. Calvarium is intact. IMPRESSION: NEGATIVE CT SCAN OF THE BRAIN.
[2019-04-30 21:00] LABS: Albumin 3.1 g/dL (3.5-5.0); Total Bilirubin 1.1 mg/dL (0.2-1.3); Total Protein 6.4 g/dL (6.3-8.2)
[2019-04-30] MEDS ORDERED: GABAPENTIN 300 MG CAP PO SCH (21:00)
[2019-04-30] MEDS ORDERED: HEPARIN SODIUM,PORCINE 5,000 UNIT/ML 1 ML VIAL SQ SCH (21:00)
[2019-04-30] MEDS: CEFEPIME 2 GM in SODIUM CHLORIDE 0.9% 100 ML IVPB SCH (21:23)
[2019-04-30] MEDS: MONTELUKAST 10 MG TAB PO SCH (21:24)
[2019-04-30] MEDS: ATORVASTATIN 40 MG TAB PO SCH (21:24)
--- NOTE | 2019-04-30 23:58 | HP ---
HISTORY AND PHYSICAL CHIEF COMPLAINTS: Weakness, lethargy, vomiting and fever. HISTORY OF PRESENT ILLNESS: This 63-year-old woman with a past medical history of breast cancer with metastases to the liver and spine, history of CVA, TIA, hypertension, hyperlipidemia, history of breast surgery, being followed by Dr. Beata Quintero in the outpatient setting, was complaining of lethargy, weakness, and also she was vomiting. The patient also had fever and chills, increasing shortness of breath; right lower pneumonia suspected. Patient came to [facility] and was admitted for further evaluation and treatment. There is no history of any headache, loss of consciousness, seizures. Creatinine was elevated up to 2.69 and previous creatinine was 1, indicating acute renal failure. Hemoglobin is 10.2 and platelets are 47. WBC is 2.3. UA showed some evidence of UTI. Influenza was negative. There is no history of any headache, loss of consciousness, chest pain, palpitations at this time. PAST MEDICAL HISTORY: 1. History of CVA, TIA. 2. Hypertension. 3. Hyperlipidemia. 4. History of breast cancer with metastases. HOME MEDICATIONS: 1. Carafate 1 gram p.o. before meals and at bedtime. 2. KCl 20 mEq p.o. daily. 3. MiraLAX 17 grams daily p.r.n. 4. Ibrance 125 mg p.o. p.r.n. 5. Omeprazole 20 mg p.o. daily. 6. Singulair 10 mg at bedtime. 7. Femara 2.5 mg p.o. daily. 8. [place] 5 mg q.8 p.r.n. 9. Neurontin 300 mg p.o. daily and 600 mg at bedtime. 10.Lasix 40 mg p.o. daily. 11.Flonase 1 spray daily. 12.Diltiazem ER 180 mg p.o. daily. 13.Lipitor 40 mg at bedtime. 14.Aspirin 162 mg p.o. daily. 15.Ventolin HFA 2 puffs q.i.d. p.r.n. ALLERGIES: NONE. FAMILY HISTORY: History of lung cancer in the family. SOCIAL HISTORY: Previous history of smoking. Occasional alcohol intake. REVIEW OF SYSTEMS: ENT: Diminished hearing. Diminished vision. CARDIOVASCULAR SYSTEM: As mentioned earlier. RESPIRATORY SYSTEM: As mentioned earlier. GI: As mentioned earlier. : No dysuria or retention. NERVOUS SYSTEM: No numbness, weakness. ALLERGY/IMMUNOLOGY: No asthma, hayfever. MUSCULOSKELETAL: As mentioned earlier. HEMATOLOGY/ONCOLOGY: As mentioned earlier. ENDOCRINE: As mentioned earlier. CONSTITUTIONAL: As mentioned earlier. DERMATOLOGY: Negative. RHEUMATOLOGY: Negative. PSYCHIATRY: As mentioned earlier. PHYSICAL EXAMINATION: Patient alert and oriented x3. Pulse 78, blood pressure 116/70, respirations 16, temperature 97.6, pulse ox 98% on room air. HEENT: Conjunctivae normal. Oral mucosa moist. NECK: No jugular venous distention. No carotid bruit. No lymph node enlargement. CARDIOVASCULAR SYSTEM: S1, S2 muffled. No S3. No S4. RESPIRATORY SYSTEM: Breath sounds diminished at the bases. Scattered rhonchi. No crackles. ABDOMEN: Soft, obese, non-tender. No mass palpable. LEGS: No edema. No swelling. NERVOUS SYSTEM: Higher functions as mentioned earlier. Moves all 4 limbs. No focal motor or sensory deficit. LYMPHATICS: No lymph node palpable in neck, axillae or groin. SKIN: No ulcer, rash, bleeding. JOINTS: No active deforming arthropathy. LABS: WBC 2.3, hemoglobin 9.2, platelets 47. Sodium 130, creatinine 2.69, and calcium is 7.1. AST is 84. Albumin is 2.8. UA noted. ASSESSMENT: 1. Acute right lobe pneumonia with sepsis and neutropenic sepsis. 2. Pancytopenia secondary to chemotherapy. 3. Carcinoma of breast with metastases to spine and liver. 4. Hyponatremia. 5. Increased creatinine with acute renal failure, possibly acute prerenal renal failure with acute tubular necrosis. 6. Hypocalcemia. 7. Increased AST. 8. Obesity with body mass index of 59.8. 9. History of hypertension. 10.History of hyperlipidemia. 11.History of cerebrovascular incident, left-sided. 12.History of breast surgery. 13.Remote history of nicotine dependence. RECOMMENDATIONS AND DISCUSSION: In this 63-year-old woman who presented with multiple complex medical issues, at this time I recommend continued current management, continued symptomatic treatment. Will initiate broad-spectrum IV antibiotics. Cultures. Infectious disease evaluation has been sought. We will closely monitor. Otherwise, resume the home medications. Guarded prognosis because of multiple complex medical issues. Further recommendations to follow. A copy of this dictation is being forwarded to Dr. Quintero, who is the primary physician. MMODL / IJN: [id number] /
[2019-05-01] MEDS: SODIUM CHLORIDE 0.9% 1,000 ML IV SCH ×2 (00:17→10:40)
[2019-05-01] MEDS: IPRATROPIUM-ALBUTEROL 3 ML NEB INHALATION PRN (01:54)
[2019-05-01] MEDS: CEFEPIME 2 GM in SODIUM CHLORIDE 0.9% 100 ML IVPB SCH ×2 (03:54→12:30)
[2019-05-01] MEDS ORDERED: PANTOPRAZOLE 40 MG TABLET PO SCH (07:30)
[2019-05-01] MEDS: HYDROcodone/APAP 5-325MG 1 EACH TAB PO PRN ×3 (07:43→20:34)
[2019-05-01] MEDS: DILTIAZEM CD 180 MG CAP.ER.24H PO SCH (07:44)
[2019-05-01] MEDS: SUCRALFATE 1 GM TAB PO SCH ×4 (07:44→20:34)
[2019-05-01] MEDS: ASPIRIN 81 MG PO SCH (07:44)
[2019-05-01] MEDS: FLUTICASONE 50MCG/SPRAY NASAL 16GM EA NOSTRIL SCH (07:44)
[2019-05-01] MEDS: GABAPENTIN 300 MG CAP PO SCH ×2 (07:44→17:19)
[2019-05-01] MEDS: PANTOPRAZOLE 40 MG TABLET PO SCH (07:44)
[2019-05-01] MEDS: FUROSEMIDE 40 MG TAB PO SCH (07:44)
[2019-05-01] MEDS: POTASSIUM CHLORIDE ER 20 MEQ TAB.ER PO SCH (07:45)
--- NOTE | 2019-05-01 08:22 | XR ---
EXAMINATION TYPE: XR chest 2V DATE OF EXAM: 05/01/2019 COMPARISON: 04/30/2019 HISTORY: Shortness of breath TECHNIQUE: Frontal and lateral views of the chest are obtained. FINDINGS: Scattered senescent parenchymal changes noted. Hyperinflation compatible with COPD. Infiltrate rll persists. Heart size is stable. Mediastinal structures are stable and grossly unremarkable. No evidence for hilar prominence. Degenerative changes dorsal spine. IMPRESSION: 1. Infiltrate rll persists.
[2019-05-01 08:26] LABS: Albumin 2.6 g/dL (3.5-5.0); Calcium 6.5 mg/dL (8.4-10.2); Potassium 3.3 mmol/L (3.5-5.1); Total Bilirubin 0.9 mg/dL (0.2-1.3); Total Protein 5.7 g/dL (6.3-8.2)
[2019-05-01] MEDS: IPRATROPIUM-ALBUTEROL 3 ML NEB INHALATION SCH ×4 (08:32→20:08)
[2019-05-01] MEDS: BUDESONIDE 1 MG/2 ML NEBU INHALATION SCH ×2 (08:32→20:06)
[2019-05-01 08:59] LABS: Anisocytosis Slight; Basophils % (A) 1 %; Eosinophils % (A) 1 %; HCT 27.1 % (34.0-46.0); Lymphocytes # (A) 0.1 k/uL (1.0-4.8); Lymphocytes % (A) 4 %; MCH 33.4 pg (25.0-35.0); MCHC 33.3 g/dL (31.0-37.0); MCV 100.4 fL (80.0-100.0); Macrocytosis Slight; Mean Platelet Volume 9.7; Monocytes # (A) 0.1 k/uL (0-1.0); Monocytes % (A) 2 %; Neutrophils % (A) 90 %; RDW 16.3 % (11.5-15.5); WBC 2.3 k/uL (3.8-10.6)
[2019-05-01] MEDS ORDERED: LETROZOLE 2.5 MG TAB PO SCH (09:00)
[2019-05-01 09:01] LABS: Platelet Count 43 k/uL (150-450)
--- NOTE | 2019-05-01 12:09 | P.PN ---
Subjective Progress Note Date: 05/01/19 Principal diagnosis: Bacteremia Renal Functioning Worsening, Febrile t max 102.2 Objective - Vital Signs Vital signs: Vital Signs Temp 97.8 F 05/01/19 05:00 Pulse 76 05/01/19 11:24 Resp 16 05/01/19 05:00 BP 110/56 05/01/19 05:00 Pulse Ox 97 05/01/19 08:35 Intake & Output 04/30/19 05/01/19 05/01/19 18:59 06:59 18:59 Intake Total 240 1320 Balance 240 1320 Weight 138.799 kg 138.799 kg Intake: Intake, IV Titration 900 Amount Cefepime 2 gm In Sodium 100 Chloride 0.9% 100 ml @ 200 mls/hr IVPB Q8H [facility] Rx#:[id number] Sodium Chloride 0.9% 1, 300 000 ml @ 100 mls/hr IV . Q10H [facility] Rx#:[id number] Vancomycin 2,250 mg In 500 Sodium Chloride 0.9% 500 ml 500 ml @ 167 mls/hr IVPB ONCE ONE Rx#: [id number] Oral 240 420 Other: Voiding Method Toilet Toilet Bedside Commode Bedside Commode # Voids 1 - Exam General: Alert and Oriented x3, No Acute Distress Head: Normocytic, Atraumatic Neck: Supple Mouth: No Lesions, No Thrush Eyes: Non-sclerotic No Palpable cervical, supraclavicular, axillary adenopathy Heart: Regular Rate, Regular Rhythm Lungs: Clear to Ausculations, No Wheeze, No Rhonchi, Diminishe bilateral lower lobes, No increased respiratory effort noted Abdomen: Soft, Non-Distended, Non-Tended, BSx4 Extremities: No Edema, Equal Strength Neurological: No Focal Defects: No sensory or motor deficits noted Psych: Calm and cooperative - Labs CBC & Chem 7: 05/01/19 07:16 05/02/19 06:55 Labs: Abnormal Lab Results - Last 24 Hours (Table) 04/30/19 04/30/19 04/30/19 Range/Units 11:43 11:43 13:00 WBC 2.3 L (3.8-10.6) k/uL RBC 2.75 L (3.80-5.40) m/uL Hgb 9.2 L (11.4-16.0) gm/dL Hct 27.3 L (34.0-46.0) % MCV (80.0-100.0) fL RDW 16.9 H (11.5-15.5) % Plt Count 47 L D (150-450) k/uL Lymphocytes # 0.1 L (1.0-4.8) k/uL Sodium 130 L (137-145) mmol/L Potassium (3.5-5.1) mmol/L Chloride (98-107) mmol/L Carbon Dioxide (22-30) mmol/L BUN 38 H (7-17) mg/dL Creatinine 2.69 H (0.52-1.04) mg/dL Glucose 131 H (74-99) mg/dL Calcium 7.1 L (8.4-10.2) mg/dL AST 84 H (14-36) U/L Total Protein 6.0 L (6.3-8.2) g/dL Albumin 2.8 L (3.5-5.0) g/dL Urine Appearance Turbid H (Clear) Urine Protein 2+ H (Negative) Urine Blood Large H (Negative) Ur Leukocyte Esterase Large H (Negative) Urine RBC >182 H (0-5) /hpf Urine WBC 40 H (0-5) /hpf Urine WBC Clumps Occasional H (None) /hpf Ur Squamous Epith Cells 13 H (0-4) /hpf Urine Bacteria Moderate H (None) /hpf Urine Mucus Occasional H (None) /hpf 04/30/19 05/01/19 05/01/19 Range/Units 20:31 07:16 07:16 WBC 2.3 L (3.8-10.6) k/uL RBC 2.70 L (3.80-5.40) m/uL Hgb 9.0 L (11.4-16.0) gm/dL Hct 27.1 L (34.0-46.0) % MCV 100.4 H (80.0-100.0) fL RDW 16.3 H (11.5-15.5) % Plt Count 43 L (150-450) k/uL Lymphocytes # 0.1 L (1.0-4.8) k/uL Sodium 132 L 133 L (137-145) mmol/L Potassium 3.3 L (3.5-5.1) mmol/L Chloride 96 L (98-107) mmol/L Carbon Dioxide 20 L (22-30) mmol/L BUN 43 H 45 H (7-17) mg/dL Creatinine 2.97 H 3.46 H (0.52-1.04) mg/dL Glucose 117 H 112 H (74-99) mg/dL Calcium 7.0 L 6.5 L (8.4-10.2) mg/dL AST 105 H 90 H (14-36) U/L Total Protein 5.7 L (6.3-8.2) g/dL Albumin 3.1 L 2.6 L (3.5-5.0) g/dL Urine Appearance (Clear) Urine Protein (Negative) Urine Blood (Negative) Ur Leukocyte Esterase (Negative) Urine RBC (0-5) /hpf Urine WBC (0-5) /hpf Urine WBC Clumps (None) /hpf Ur Squamous Epith Cells (0-4) /hpf Urine Bacteria (None) /hpf Urine Mucus (None) /hpf Microbiology - Last 24 Hours (Table) 04/30/19 11:43 Blood Culture Gram Stain - Preliminary Blood 04/30/19 11:43 Blood Culture - Final Blood Assessment and Plan Plan: Pancytopenia: - Secondary to chemotherapy with ibrance and Radiation - Hold chemotherapy at this time - Hold AC therapy platlets less than 50K - Check Coags Fevers and Chills: - Blood Cultures - Prliminary gram positive cocci - Urine Culture - ID to Consult Acute Renal Insufficiency: worsening - Secondary to dehydration - IVF - Monitor Daily. - review smear - Consult Nephrology Metastatic Breast cancer - Bone - ?Progression - Xgeva,Faslodex and Ibrance recently prescribed at progression - XRT to spine recently completed Radiation Burn Posterior thorax: resolved. - Silvadene Neoplastic Related Pain: - Continue current pain regimen - Add bowel protocol. Discussed with nephrology
[2019-05-01 13:17] LABS: Prothrombin Time 10.7 sec (9.0-12.0)
[2019-05-01 13:18] LABS: Partial Thromboplastin Time 26.3 sec (22.0-30.0)
[2019-05-01] MEDS ORDERED: POTASSIUM CHLORIDE ER 20 MEQ TAB.ER PO STA (13:43)
--- NOTE | 2019-05-01 13:47 | P.NPCON ---
History of Present Illness - Reason for Consult acute renal failure - History of Present Illness Reason for consultation: Acute kidney injury History of present illness: Patient is a 63-year-old female seen in consultation for acute kidney injury. Patient presented creatinine is near 1 and was 2.69 on admission. Renal function continues to worsen and creatinine is up at 3.46 today. Patient presented to the hospital with nausea and vomiting going on for about 5 days prior to admission. Patient has history of breast cancer with metastatic disease and was maintained on chemotherapy. Currently the chemotherapy is held. She was maintained on IV fluids up until this morning. She is now complaining of swelling in her lower extremities. She does take Lasix at home which was resumed today. Patient's blood culture is positive for gram-positive cocci. She is maintained on IV antibiotics. She has been voiding. No hematuria or dysuria. Denies chest pain or shortness of breath. No history of diabetes. Denies family history of renal disease. Blood pressures controlled. No evidence of hypotension. Chest x-ray shows a right lower lobe infiltrate. Vital signs are stable. General: The patient appeared well nourished and normally developed. HEENT: Head exam is unremarkable. Neck is without jugular venous distension. LUNGS: Lungs are clear to auscultation and percussion. Breath sounds decreased. HEART: Rate and Rhythm are regular. First and second heart sounds normal. No murmurs, rubs or gallops. ABDOMEN: Abdominal exam reveals normal bowel sounds. Non-tender and non- distended. No evidence of peritonitis. EXTREMITITES: 1+ edema. Past Medical History Past Medical History: Cancer, CVA/TIA, Hyperlipidemia, Hypertension Additional Past Medical History / Comment(s): hx CVA left side 2018, Left breast cancer 1997, spine cancer 2018 History of Any Multi-Drug Resistant Organisms: None Reported Past Surgical History: Breast Surgery, Hysterectomy, Joint Replacement Additional Past Surgical History / Comment(s): left knee replacement, several breast biopsies Past Anesthesia/Blood Transfusion Reactions: No Reported Reaction Smoking Status: Former smoker - Past Family History Father Family Medical History: Cancer Additional Family Medical History / Comment(s): Father from cancer in the lining of his lungs. He had occupational chemical exposures. Mother Family Medical History: Cancer, Coronary Artery Disease (CAD) Additional Family Medical History / Comment(s): Mother had colon cancer with surgery. She also had heart disease. Medications and Allergies Home Medications Medication Instructions Recorded Confirmed Type Aspirin [Adult Low Dose Aspirin EC] 162 mg PO DAILY 07/03/18 04/30/19 History Atorvastatin [Lipitor] 40 mg PO HS 07/03/18 04/30/19 History Diltiazem HCl [Diltiazem 24Hr ER 180 mg PO DAILY 07/03/18 04/30/19 History (CD)] Albuterol Inhaler [Ventolin Hfa 2 puff INHALATION RT-QID PRN 03/05/19 04/30/19 History Inhaler] Fluticasone Nasal [place] [Flonase 1 spray EA NOSTRIL DAILY 03/05/19 04/30/19 History Nasal [place]] Furosemide [Lasix] 40 mg PO DAILY 03/05/19 04/30/19 History Gabapentin [Neurontin] 300 mg PO DAILY 03/05/19 04/30/19 History Gabapentin [Neurontin] 600 mg PO HS 03/05/19 04/30/19 History Letrozole [Femara] 2.5 mg PO DAILY 03/05/19 04/30/19 History Montelukast [Singulair] 10 mg PO HS 03/05/19 04/30/19 History Omeprazole 20 mg PO DAILY 03/05/19 04/30/19 History Potassium Chloride 20 meq PO DAILY 03/05/19 04/30/19 History HYDROcodone/APAP 5-325MG [[place] 1 tab PO Q8HR PRN 3 Days #9 tab 03/11/19 04/30/19 Rx 5-325] Polyethylene Glycol 3350 [Miralax] 17 gm PO DAILY PRN #30 powd.pack 03/11/19 04/30/19 Rx Sucralfate [Carafate] 1 gm PO ACHS #120 tablet 03/11/19 04/30/19 Rx Palbociclib [Ibrance] 125 mg PO DIRECTED 04/30/19 04/30/19 History Allergies Allergy/AdvReac Type Severity Reaction Status Date / Time No Known Allergies Allergy Verified 04/30/19 11:41 Physical Exam Vitals: Vital Signs Temp Pulse Pulse Resp BP BP Pulse Ox 05/01/19 12:47 97.7 F 05/01/19 12:08 77 20 111/64 97 05/01/19 11:24 76 05/01/19 08:44 84 09/05/19 08:35 97 05/01/19 08:34 78 05/01/19 05:00 97.8 F 77 16 110/56 94 L 05/01/19 02:03 104 H 05/01/19 01:55 100 05/01/19 00:00 114 H 16 04/30/19 21:27 108 H 04/30/19 21:11 108 H 04/30/19 20:08 102.2 F H 04/30/19 19:45 100 F H 114 H 128/61 96 04/30/19 16:00 78 16 04/30/19 15:23 97.6 F 78 16 116/70 98 04/30/19 14:53 97.3 F L 82 18 109/56 95 04/30/19 14:20 97.3 F L 82 18 109/56 95 04/30/19 13:59 95 Intake and Output 04/30/19 05/01/19 05/01/19 22:59 06:59 14:59 Intake Total 540 1020 Balance 540 1020 Intake: Intake, IV Titration 300 600 Amount Cefepime 2 gm In Sodium 100 Chloride 0.9% 100 ml @ 200 mls/hr IVPB Q8H [facility] Rx#:[id number] Sodium Chloride 0.9% 1, 300 000 ml @ 100 mls/hr IV . Q10H [facility] Rx#:[id number] Vancomycin 2,250 mg In 500 Sodium Chloride 0.9% 500 ml 500 ml @ 167 mls/hr IVPB ONCE ONE Rx#: [id number] Oral 240 420 Other: Voiding Method Toilet Toilet Bedside Commode Bedside Commode # Voids 1 Weight 138.799 kg Results - Lab Results Most recent lab results Calcium 6.5 mg/dL (8.4-10.2) L 05/01/19 07:16 Phosphorus 2.6 mg/dL (2.5-4.5) 04/30/19 11:43 Magnesium 2.0 mg/dL (1.6-2.3) 04/30/19 11:43 05/01/19 07:16 05/01/19 07:16 Assessment and Plan Plan: assessment: 1. Acute kidney injury secondary to ATN secondary to n/v/poor po intake and sepsis. R/o obx uropathy. Baseline cr 1 - 3.46 today. 2. Gram positive bacteremia. 3. Breast cancer with mets. Oncology following. 4. Hyponatremia secondary to KIT. Currently hypervolemic. 5. Metabolic acidosis due to KIT and IVFs. 6. Hypokalemia from poor PO intake. 7. Pancytopenia due to chemotherapy. Plan: Heplock IVFs. Maintain lasix 40 mg daily. Check bladder scan to r/o retention. Check renal uls. Replace K - 40 meq today. Check vancomycin level - dose to be adjusted for renal function. Monitor renal fx and UO closely. D/c NSAIDs. Add oral bicarb. Repeat electrolytes in AM. Thank you for the consultation. I will continue to follow the patient with you during her hospital stay.
[2019-05-01 14:09] LABS: Anisocytosis (M) Present; Poikilocytosis (M) Present
--- NOTE | 2019-05-01 14:52 | US ---
EXAMINATION TYPE: US kidneys/renal and bladder DATE OF EXAM: 05/01/2019 COMPARISON: PET/CT dated 03/15/2019 CLINICAL HISTORY: renal insufficiency. UTI EXAM MEASUREMENTS: Bladder empty and could not determine wall thickness or post void residual. Right Kidney: 13.4 x 5.7 x 5.3 cm Left Kidney: 13.2 x 6.1 x 5.1 cm Bladder: Empty Bilateral Jets seen: No Normal Post Void Residual: Yes There is no gross evidence of evidence for hydronephrosis at this point in time. No nephrolithiasis is seen. No masses are identified The urinary bladder is nondistended. IMPRESSION: Marked suboptimal visualization of the kidneys secondary to patient body habitus. No rosa maria s evidence of hydronephrosis nor nephrolithiasis is seen. Urinary bladder is nondistended and not steven luated.
[2019-05-01] MEDS: SODIUM BICARBONATE TAB 650 MG TAB PO SCH ×2 (14:54→22:02)
--- NOTE | 2019-05-01 15:50 | P.PN ---
Subjective Progress Note Date: 05/01/19 Principal diagnosis: This is a 63-year-old female was recently admitted for shortness of breath, fever and chills, weakness and lethargy and is being closely monitored. Right lower pneumonia suspected. Nephrology was consulted due to an increase in creatinine. IV fluids will be discontinued as patient is eating and drinking and tolerating well. Will continue with oral Lasix. Patient continues to have some mild edema to the bilateral lower extremities. oncology is following as well. Patient denies any chest pain or palpitations at this time. Patient states that she is having some mild shortness of breath which has improved since yesterday. Patient is afebrile. Patient denies any nausea or vomiting and is tolerating diet. Guarded prognosis Objective - Vital Signs Vital signs: Vital Signs Temp 97.7 F 05/01/19 12:47 Pulse 73 05/01/19 15:35 Resp 20 05/01/19 12:08 BP 111/64 05/01/19 12:08 Pulse Ox 97 05/01/19 12:08 Intake & Output 04/30/19 05/01/19 05/01/19 18:59 06:59 18:59 Intake Total 240 1320 Balance 240 1320 Weight 138.799 kg 138.799 kg Intake: Intake, IV Titration 900 Amount Cefepime 2 gm In Sodium 100 Chloride 0.9% 100 ml @ 200 mls/hr IVPB Q8H [facility] Rx#:[id number] Sodium Chloride 0.9% 1, 300 000 ml @ 100 mls/hr IV . Q10H [facility] Rx#:[id number] Vancomycin 2,250 mg In 500 Sodium Chloride 0.9% 500 ml 500 ml @ 167 mls/hr IVPB ONCE ONE Rx#: [id number] Oral 240 420 Other: Voiding Method Toilet Toilet Toilet Bedside Commode Bedside Commode Bedside Commode # Voids 1 2 - Exam Gen: This is a 63-year-old female sitting up in a chair in no acute distress. Vital signs are stable. Temp is 97.7F, pulse is 77, respirations are 20, blood pressure is 111/64, oxygen saturation is 97% on room air. HEENT: Head is atraumatic, normocephalic. Pupils equal, round. Sclerae is anicteric. NECK: Supple. No JVD. No lymphadenopathy. No thyromegaly. LUNGS: Diminished breath sounds at the bases with a few scattered rhonchi. No wheezing or crackles noted. No intercostal retractions. HEART: S1 and S2 are muffled. No murmur. ABDOMEN: Soft. Obese. Bowel sounds are present. No masses. No tenderness. EXTREMITIES: Mild bilateral lower extremity swelling. No calf tenderness. NEUROLOGICAL: Patient is awake, alert and oriented x3. Cranial nerves 2 through 12 are grossly intact. - Labs CBC & Chem 7: 05/01/19 07:16 05/01/19 07:16 Labs: Abnormal Lab Results - Last 24 Hours (Table) 04/30/19 05/01/19 05/01/19 Range/Units 20:31 07:16 07:16 WBC 2.3 L (3.8-10.6) k/uL RBC 2.70 L (3.80-5.40) m/uL Hgb 9.0 L (11.4-16.0) gm/dL Hct 27.1 L (34.0-46.0) % MCV 100.4 H (80.0-100.0) fL RDW 16.3 H (11.5-15.5) % Plt Count 43 L (150-450) k/uL Lymphocytes # 0.1 L (1.0-4.8) k/uL Sodium 132 L 133 L (137-145) mmol/L Potassium 3.3 L (3.5-5.1) mmol/L Chloride 96 L (98-107) mmol/L Carbon Dioxide 20 L (22-30) mmol/L BUN 43 H 45 H (7-17) mg/dL Creatinine 2.97 H 3.46 H (0.52-1.04) mg/dL Glucose 117 H 112 H (74-99) mg/dL Calcium 7.0 L 6.5 L (8.4-10.2) mg/dL AST 105 H 90 H (14-36) U/L Total Protein 5.7 L (6.3-8.2) g/dL Albumin 3.1 L 2.6 L (3.5-5.0) g/dL Microbiology - Last 24 Hours (Table) 04/30/19 13:00 Urine Culture - Preliminary Urine,Voided 04/30/19 11:43 Blood Culture Gram Stain - Preliminary Blood 04/30/19 11:43 Blood Culture - Final Blood Assessment and Plan Assessment: Acute right lobe pneumonia with sepsis and neutropenic sepsis pancytopenia secondary to chemotherapy 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 Will continue on IV antibiotics at this time. Infectious disease was consulted an awaiting. Blood culture showed gram-positive cocci and awaiting final report. Continue with bronchodilators and oral Lasix. IV fluids have been discontinued. Will monitor vital signs and labs closely. Repeat labs in the morning. Guarded prognosis. Patient's to follow.
[2019-05-01] MEDS ORDERED: AZITHROMYCIN 500 MG TAB PO SCH (16:00)
[2019-05-01] MEDS ORDERED: VANCOMYCIN 2,000 MG in SODIUM CHLORIDE 0.9% 500 ML 500 ML IVPB ONE (18:00)
[2019-05-01] MEDS: ATORVASTATIN 40 MG TAB PO SCH (20:34)
[2019-05-01] MEDS: MONTELUKAST 10 MG TAB PO SCH (20:34)
--- NOTE | 2019-05-01 22:05 | P.CONS ---
History of Present Illness - Reason for Consult Consult date: 05/01/19 - Chief Complaint fever - History of Present Illness Pleasant 63-year-old female is a complex past medical history regarding her breast carcinoma. 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 Because of increasing pain and neurological difficulties she was evaluated was treated with radiation therapy to the cervical and thoracic spine . She Developed extensive radiation dermatitis and esophagitis. She was hospitalized [facility] and with treatment of the skin and esophagitis she had marked improvement. She has had a subsequent hospitalization at the outside facility where she had a urinary tract infection. She now presents to Hospital feeling poorly with evidence significant weakness with fever 102, chills and evidence of new abnormality. Chest x-ray acute renal failure and generalized malaise. With fluid resuscitation antibiotic therapy she started to feel somewhat better. Cultures are in process with concerns to urinary tract infection as a source of the current bout of sepsis. Review of Systems HEENT:Denies headache or acute visual change. Denies sinus or mouth discomforts. Denies neck stiffness or pain. has difficulty with the oral cavity was some with discomfort, distinct difficulty with swallowing due to pain Lungs: has only mild shortness of breath minimal cough minimal sputum production no hemopty Cardiovascular: Denies chest pain, chest wall pain, orthopnea, dyspnea on exertion, syncope Gastrointestinal:Denies nausea, vomiting, diarrhea, hematemesis, melena, hematochezia. relates with current pain medication has developed some constipation Musculoskeletal: denies significant myalgias or arthralgias. No new joint swelling. Denies new back pain. Skin: Radiation dermatitis has resolved Neuro: Denies headache or visual change. Denies any new onset weakness or difficulty with ambulation. Denies falls or seizures. Psychiatric:Denies anxiety or depression. Endocrine: has significant fatigue and does have weight loss of 30 pounds Past Medical History Past Medical History: Cancer, CVA/TIA, Hyperlipidemia, Hypertension Additional Past Medical History / Comment(s): hx CVA left side 2017, Left breast cancer 1997, spine cancer 2017 History of Any Multi-Drug Resistant Organisms: None Reported Past Surgical History: Breast Surgery, Hysterectomy, Joint Replacement Additional Past Surgical History / Comment(s): left knee replacement, several breast biopsies Past Anesthesia/Blood Transfusion Reactions: No Reported Reaction Smoking Status: Former smoker - Past Family History Father Family Medical History: Cancer Additional Family Medical History / Comment(s): Father from cancer in the lining of his lungs. He had occupational chemical exposures. Mother Family Medical History: Cancer, Coronary Artery Disease (CAD) Additional Family Medical History / Comment(s): Mother had colon cancer with surgery. She also had heart disease. Medications and Allergies Home Medications and Allergies Comment(s): Current Medications Hydrocodone Bitart/Acetaminophen ([place] 5-325) 1 each PO Q4HR PRN PRN Reason: Pain Last Admin: 05/01/19 20:34 Dose: 1 each Documented by: Albuterol/Ipratropium (Duoneb 0.5 Mg-3 Mg/3 Ml Soln) 3 ml INHALATION RT-Q4H PRN PRN Reason: shortness of breath Last Admin: 05/01/19 01:54 Dose: 3 ml Documented by: Albuterol/Ipratropium (Duoneb 0.5 Mg-3 Mg/3 Ml Soln) 3 ml INHALATION RT-QID [facility] Last Admin: 05/01/19 20:08 Dose: 3 ml Documented by: Alprazolam (Xanax) 0.25 mg PO TID PRN PRN Reason: Anxiety Aspirin (Aspirin) 162 mg PO DAILY [facility] Last Admin: 05/01/19 07:44 Dose: 162 mg Documented by: Atorvastatin Calcium (Lipitor) 40 mg PO HS [facility] Last Admin: 05/01/19 20:34 Dose: 40 mg Documented by: Budesonide (Pulmicort) 1 mg INHALATION RT-BID [facility] Last Admin: 05/01/19 20:06 Dose: 1 mg Documented by: Diltiazem HCl (Cardizem Cd) 180 mg PO DAILY [facility] Last Admin: 05/01/19 07:44 Dose: 180 mg Documented by: Fluticasone Propionate (Flonase Nasal [place]) 1 spray EA NOSTRIL DAILY [facility] Last Admin: 05/01/19 07:44 Dose: 1 spray Documented by: Furosemide (Lasix) 40 mg PO DAILY [facility] Last Admin: 05/01/19 07:44 Dose: 40 mg Documented by: Gabapentin (Neurontin) 300 mg PO DAILY [facility] Last Admin: 05/01/19 07:44 Dose: 300 mg Documented by: Gabapentin (Neurontin) 600 mg PO 1800 [facility] Last Admin: 05/01/19 17:19 Dose: 600 mg Documented by: Cefepime HCl 2 gm/ Sodium (Chloride) 100 mls @ 200 mls/hr IVPB Q24HR [facility] Miscellaneous Information (Pneumonia Protocol Utilized) 1 each PO ONCE PRN PRN Reason: Per Protocol Miscellaneous Information (Pharmacy To Dose Iv Vancomycin) 1 each MISCELLANE DIRECTED PRN PRN Reason: Per Protocol Montelukast Sodium (Singulair) [address] [facility] Last Admin: 05/01/19 20:34 Dose: 10 mg Documented by: Pantoprazole Sodium (Protonix) 40 mg PO AC-BRKFST [facility] Last Admin: 05/01/19 07:44 Dose: 40 mg Documented by: Polyethylene Glycol (Miralax) 17 gm PO DAILY PRN PRN Reason: Constipation Last Admin: 05/01/19 20:34 Dose: 17 gm Documented by: Potassium Chloride (K-Dur 20) 20 meq PO DAILY [facility] Last Admin: 05/01/19 07:45 Dose: 20 meq Documented by: Silver Sulfadiazine (Silvadene Cream) 1 applic TOPICAL BID [facility] Sodium Bicarbonate (Sodium Bicarbonate Tab) 650 mg PO BID [facility] Last Admin: 05/01/19 14:54 Dose: 650 mg Documented by: Sucralfate (Carafate) 1 gm PO ACHS [facility] Last Admin: 05/01/19 20:34 Dose: 1 gm Documented by: Home Medications Medication Instructions Recorded Confirmed Type Aspirin [Adult Low Dose Aspirin EC] 162 mg PO DAILY 07/03/18 04/30/19 History Atorvastatin [Lipitor] 40 mg PO 07/03/18 04/30/19 History Diltiazem HCl [Diltiazem 24Hr ER 180 mg PO DAILY 07/03/18 04/30/19 History (CD)] Albuterol Inhaler [Ventolin Hfa 2 puff INHALATION RT-QID PRN 03/05/19 04/30/19 History Inhaler] Fluticasone Nasal [place] [Flonase 1 spray EA NOSTRIL DAILY 03/05/19 04/30/19 History Nasal [place]] Furosemide [Lasix] 40 mg PO DAILY 03/05/19 04/30/19 History Gabapentin [Neurontin] 300 mg PO DAILY 03/05/19 04/30/19 History Gabapentin [Neurontin] 600 mg PO 03/05/19 04/30/19 History Letrozole [Femara] 2.5 mg PO DAILY 03/05/19 04/30/19 History Montelukast [Singulair] 10 mg PO HS 03/05/19 04/30/19 History Omeprazole 20 mg PO DAILY 03/05/19 04/30/19 History Potassium Chloride 20 meq PO DAILY 03/05/19 04/30/19 History HYDROcodone/APAP 5-325MG [[place] 1 tab PO Q8HR PRN 3 Days #9 tab 03/11/19 04/30/19 Rx 5-325] Polyethylene Glycol 3350 [Miralax] 17 gm PO DAILY PRN #30 powd.pack 03/11/19 04/30/19 Rx Sucralfate [Carafate] 1 gm PO ACHS #120 tablet 03/11/19 04/30/19 Rx Palbociclib [Ibrance] 125 mg PO DIRECTED 04/30/19 04/30/19 History Allergies Allergy/AdvReac Type Severity Reaction Status Date / Time No Known Allergies Allergy Verified 04/30/19 11:41 Physical Exam Vitals: Vital Signs Temp Pulse Pulse Resp BP Pulse Ox 05/01/19 20:58 97.5 F L 93 16 138/81 99 05/01/19 20:22 76 05/01/19 20:09 99 05/01/19 20:08 74 05/01/19 15:35 73 05/01/19 15:25 80 05/01/19 12:47 97.7 F 05/01/19 12:08 77 20 111/64 97 05/01/19 11:35 79 05/01/19 11:24 76 05/01/19 08:44 84 05/01/19 08:35 97 05/01/19 08:34 78 05/01/19 05:00 97.8 F 77 16 110/56 94 L 05/01/19 02:03 104 H 05/01/19 01:55 100 05/01/19 00:00 114 H 16 Intake and Output 05/01/19 05/01/19 05/01/19 06:59 14:59 22:59 Intake Total 1020 Output Total 42 Balance 1020 -42 Intake: Intake, IV Titration 600 Amount Cefepime 2 gm In Sodium 100 Chloride 0.9% 100 ml @ 200 mls/hr IVPB Q8H [facility] Rx#:[id number] Vancomycin 2,250 mg In 500 Sodium Chloride 0.9% 500 ml 500 ml @ 167 mls/hr IVPB ONCE ONE Rx#: [id number] Oral 420 Output: Post Void Residual 42 Other: Voiding Method Toilet Toilet Toilet Bedside Commode Bedside Commode Bedside Commode # Voids 1 2 Weight 138.799 kg 63-year-old woman presents to Hospital feeling poorly with fever and chills HEENT: Anicteric conjunctiva are pink and moist nasal mucosa grossly intact without significant lesions, there is no thrush. Neck: The neck is supple without significant lymphadenopathy or thyromegaly. Lungs: Good bilateral air entry without significant crackles or wheezing. There is no significant bronchial sounds. There is no egophony or dullness. Heart: Regular rate and rhythm with an audible S1-S2, no S3 no S4. There is no significant murmur click or rub, PMI was nondisplaced. Abdomen: Positive bowel sounds soft minimal tenderness is noted in the right upper quadrant without palpable masses or organomegaly. There was no guarding or rebound. Extremities: The upper extremities have excellent pulses they are symmetric, no significant petechiae or telangiectasia. No splinter hemorrhages were noted. The lower extremities are free from significant edema. The peripheral pulses were 2+ and symmetric. Neuro: Awake alert oriented to person place and time. There are no acute new gross focal sensory motor deficits. Skin reveals evidence of the resolution of the radiation dermatitis does have some residual color change but there is nothing ulcer. She is not having any further difficulties with the esophagitis either although does have a bit of dry mouth and throat. Results CBC & Chem 7: 05/01/19 07:16 05/01/19 07:16 Labs: Abnormal Lab Results - Last 24 Hours (Table) 05/01/19 05/01/19 Range/Units 07:16 07:16 WBC 2.3 L (3.8-10.6) k/uL RBC 2.70 L (3.80-5.40) m/uL Hgb 9.0 L (11.4-16.0) gm/dL Hct 27.1 L (34.0-46.0) % MCV 100.4 H (80.0-100.0) fL RDW 16.3 H (11.5-15.5) % Plt Count 43 L (150-450) k/uL Lymphocytes # 0.1 L (1.0-4.8) k/uL Sodium 133 L (137-145) mmol/L Potassium 3.3 L (3.5-5.1) mmol/L Carbon Dioxide 20 L (22-30) mmol/L BUN 45 H (7-17) mg/dL Creatinine 3.46 H (0.52-1.04) mg/dL Glucose 112 H (74-99) mg/dL Calcium 6.5 L (8.4-10.2) mg/dL AST 90 H (14-36) U/L Total Protein 5.7 L (6.3-8.2) g/dL Albumin 2.6 L (3.5-5.0) g/dL Microbiology - Last 24 Hours (Table) 04/30/19 13:00 Urine Culture - Preliminary Urine,Voided Group D Enterococcus 04/30/19 11:43 Blood Culture Gram Stain - Preliminary Blood 04/30/19 11:43 Blood Culture - Final Blood Laboratory Results WBC 2.3 k/uL (3.8-10.6) L 05/01/19 07:16 RBC 2.70 m/uL (3.80-5.40) L 05/01/19 07:16 Hgb 9.0 gm/dL (11.4-16.0) L 05/01/19 07:16 Hct 27.1 % (34.0-46.0) L 05/01/19 07:16 MCV 100.4 fL (80.0-100.0) H 05/01/19 07:16 MCH 33.4 pg (25.0-35.0) 05/01/19 07:16 MCHC 33.3 g/dL (31.0-37.0) 05/01/19 07:16 RDW 16.3 % (11.5-15.5) H 05/01/19 07:16 Plt Count 43 k/uL (150-450) L 05/01/19 07:16 Neutrophils % 90 % 05/01/19 07:16 Lymphocytes % 4 % 05/01/19 07:16 Monocytes % 2 % 05/01/19 07:16 Eosinophils % 1 % 05/01/19 07:16 Basophils % 1 % 05/01/19 07:16 Neutrophils # 2.0 k/uL (1.3-7.7) 05/01/19 07:16 Lymphocytes # 0.1 k/uL (1.0-4.8) L 05/01/19 07:16 Monocytes # 0.1 k/uL (0-1.0) 05/01/19 07:16 Eosinophils # 0.0 k/uL (0-0.7) 05/01/19 07:16 Basophils # 0.0 k/uL (0-0.2) 05/01/19 07:16 Manual Slide Review Performed 05/01/19 07:16 Large Platelets Present 04/30/19 11:43 Poikilocytosis (manual Present 05/01/19 07:16 Anisocytosis Slight 05/01/19 07:16 Anisocytosis (manual) Present 05/01/19 07:16 Macrocytosis Slight 05/01/19 07:16 PT 10.7 sec (9.0-12.0) 05/01/19 12:37 INR 1.0 (<1.2) 05/01/19 12:37 APTT 26.3 sec (22.0-30.0) 05/01/19 12:37 Sodium 133 mmol/L (137-145) L 05/01/19 07:16 Potassium 3.3 mmol/L (3.5-5.1) L 05/01/19 07:16 Chloride 101 mmol/L (98-107) 05/01/19 07:16 Carbon Dioxide 20 mmol/L (22-30) L 05/01/19 07:16 Anion Gap 12 mmol/L 05/01/19 07:16 BUN 45 mg/dL (7-17) H 05/01/19 07:16 Creatinine 3.46 mg/dL (0.52-1.04) H 05/01/19 07:16 Est GFR (CKD-EPI)AfAm 15 (>60 ml/min/1.73 sqM) 05/01/19 07:16 Est GFR (CKD-EPI)NonAf 13 (>60 ml/min/1.73 sqM) 05/01/19 07:16 Glucose 112 mg/dL (74-99) H 05/01/19 07:16 Plasma Lactic Acid Jon 1.5 mmol/L (0.7-2.0) 04/30/19 11:43 Calcium 6.5 mg/dL (8.4-10.2) L 05/01/19 07:16 Phosphorus 2.6 mg/dL (2.5-4.5) 04/30/19 11:43 Magnesium 2.0 mg/dL (1.6-2.3) 04/30/19 11:43 Total Bilirubin 0.9 mg/dL (0.2-1.3) 05/01/19 07:16 AST 90 U/L (14-36) H 05/01/19 07:16 ALT 48 U/L (9-52) 05/01/19 07:16 Alkaline Phosphatase 70 U/L (38-126) 05/01/19 07:16 Total Protein 5.7 g/dL (6.3-8.2) L 05/01/19 07:16 Albumin 2.6 g/dL (3.5-5.0) L 05/01/19 07:16 Urine Color Dark Brown 04/30/19 13:00 Urine Appearance Turbid (Clear) H 04/30/19 13:00 Urine pH 5.0 (5.0-8.0) 04/30/19 13:00 Ur Specific Guin 1.016 (1.001-1.035) 04/30/19 13:00 Urine Protein 2+ (Negative) H 04/30/19 13:00 Urine Glucose (UA) Negative (Negative) 04/30/19 13:00 Urine Ketones Negative (Negative) 04/30/19 13:00 Urine Blood Large (Negative) H 04/30/19 13:00 Urine Nitrite Negative (Negative) 04/30/19 13:00 Urine Bilirubin Negative (Negative) 04/30/19 13:00 Urine Urobilinogen 4.0 mg/dL (<2.0) 04/30/19 13:00 Ur Leukocyte Esterase Large (Negative) H 04/30/19 13:00 Urine RBC >182 /hpf (0-5) H 04/30/19 13:00 Urine WBC 40 /hpf (0-5) H 04/30/19 13:00 Urine WBC Clumps Occasional /hpf (None) H 04/30/19 13:00 Ur Squamous Epith Cells 13 /hpf (0-4) H 04/30/19 13:00 Urine Bacteria Moderate /hpf (None) H 04/30/19 13:00 Urine Mucus Occasional /hpf (None) H 04/30/19 13:00 Random Vancomycin 25.7 ug/mL 05/01/19 07:16 Influenza Type A RNA Not Detected (Not Detectd) 04/30/19 13:04 Influenza Type B (PCR) Not Detected (Not Detectd) 04/30/19 13:04 Microbiology 04/30/19 13:00 Urine,Voided Urine Culture - Preliminary Group D Enterococcus 04/30/19 11:43 Blood Blood Culture Gram Stain - Preliminary 04/30/19 11:43 Blood Blood Culture - Final Assessment and Plan (1) Acute renal failure Current Visit: Yes Status: Acute Code(s): N17.9 - ACUTE KIDNEY FAILURE, UNSPECIFIED SNOMED Code(s): 67777429 (2) Gram-positive cocci bacteremia Current Visit: No Status: Acute Code(s): R78.81 - BACTEREMIA SNOMED Code(s): 258369787921 (3) Metastatic breast carcinoma Current Visit: Yes Status: Chronic Priority: Medium Code(s): C50.919 - MALIGNANT NEOPLASM OF UNSP SITE OF UNSPECIFIED FEMALE BREAST SNOMED Code(s): 434519125 (4) Urinary tract infection Narrative/Plan: 63-year-old woman who has a history of the metastaticBreast carcinoma with evidence of significant metastasis to the skeleton as well as liver metastasis presents to Hospital feeling poorly with another bout of fever chills malaise occurring after her recent treatment with chemotherapy. Been seen by her oncology team and chemotherapy is now on hold. He does not have severe neutropenia and is being monitored. There is evidence of urinary tract infection is likely etiology her current sepsis and laboratories: Positive blood culture with gram-positive cocci. She's had several prior blood cultures with gram-positive cocci that has been staphylococcus ludegensis, which is a coagulase-negative staph and since the patient does not have an indwelling catheter has not been thought to be a significant pathogen. Somewhat concerning if it continues to be found. Urine culture is showing evidence of gram- positive cocci and constantly Acromycin therapy is being utilized as well as Rocephin until there is further data. She has developed acute renal failure and consequently very close monitoring with vancomycin therapy is indicated we'll try to limit the dosing as much as possible. Nephrology will be seeing her for her acute increase of her creatinine to 3.46. 2-D echocardiogram has been requested and she shall be monitored. Current Visit: Yes Status: Acute Code(s): N39.0 - URINARY TRACT INFECTION, SITE NOT SPECIFIED SNOMED Code(s): 67595351
[2019-05-02 07:19] LABS: Calcium 6.6 mg/dL (8.4-10.2); Magnesium 2.2 mg/dL (1.6-2.3); Potassium 4.2 mmol/L (3.5-5.1)
[2019-05-02 07:23] LABS: Vancomycin,Random 37.8 ug/mL
[2019-05-02] MEDS: PANTOPRAZOLE 40 MG TABLET PO SCH (08:15)
[2019-05-02] MEDS: FUROSEMIDE 40 MG TAB PO SCH (08:15)
[2019-05-02] MEDS: ASPIRIN 81 MG PO SCH (08:15)
[2019-05-02] MEDS: SODIUM BICARBONATE TAB 650 MG TAB PO SCH ×2 (08:15→19:56)
[2019-05-02] MEDS: SUCRALFATE 1 GM TAB PO SCH ×4 (08:15→19:57)
[2019-05-02] MEDS: DILTIAZEM CD 180 MG CAP.ER.24H PO SCH (08:16)
[2019-05-02] MEDS: POTASSIUM CHLORIDE ER 20 MEQ TAB.ER PO SCH (08:16)
[2019-05-02] MEDS: GABAPENTIN 300 MG CAP PO SCH (08:16)
[2019-05-02] MEDS: FLUTICASONE 50MCG/SPRAY NASAL 16GM EA NOSTRIL SCH (08:16)
[2019-05-02] MEDS ORDERED: CEFEPIME 2 GM in SODIUM CHLORIDE 0.9% 100 ML IVPB SCH (09:00)
[2019-05-02] MEDS: BUDESONIDE 1 MG/2 ML NEBU INHALATION SCH ×2 (09:11→20:46)
[2019-05-02] MEDS: IPRATROPIUM-ALBUTEROL 3 ML NEB INHALATION SCH ×4 (09:11→20:46)
[2019-05-02 09:23] LABS: Anisocytosis Slight; HCT 26.5 % (34.0-46.0); HGB 8.7 gm/dL (11.4-16.0); MCH 33.9 pg (25.0-35.0); MCHC 32.9 g/dL (31.0-37.0); MCV 102.9 fL (80.0-100.0); Macrocytosis Moderate; Mean Platelet Volume 10.8; Platelet Count 48 k/uL (150-450); RBC 2.57 m/uL (3.80-5.40); RDW 17.2 % (11.5-15.5); WBC 2.3 k/uL (3.8-10.6)
[2019-05-02 09:32] LABS: Band Neutrophils % 2 %; Eosinophils # (M) 0.05 k/uL (0-0.7); Lymphocytes # (M) 0.14 k/uL (1.0-4.8); Monocytes # (M) 0.09 k/uL (0-1.0); Neutrophils % (M) 86 %; Nucleated Red Blood Cells 0 /100 WBC (0-0); Total Cells Counted 100
[2019-05-02 09:33] LABS: Poikilocytosis (M) Present; Rouleaux Present
[2019-05-02] MEDS: HYDROcodone/APAP 5-325MG 1 EACH TAB PO PRN (09:58)
--- NOTE | 2019-05-02 11:41 | P.PN ---
Subjective Patient is seen in follow-up for acute kidney injury. Renal function continues to worsen. Creatinine 3.96 today. She is complaining of tremors in her upper extremities. No vomiting or diarrhea. Oral intake is fair. She has been voiding. Vital signs are stable. General: The patient appeared well nourished and normally developed. HEENT: Head exam is unremarkable. Neck is without jugular venous distension. LUNGS: Lungs are clear to auscultation and percussion. Breath sounds decreased. HEART: Rate and Rhythm are regular. First and second heart sounds normal. No murmurs, rubs or gallops. ABDOMEN: Abdominal exam reveals normal bowel sounds. Non-tender and non- distended. No evidence of peritonitis. EXTREMITITES: 1+ edema. Objective - Vital Signs Vital signs: Vital Signs Temp 98.2 F 05/02/19 04:31 Pulse 84 05/02/19 09:30 Resp 16 05/02/19 04:31 BP 106/69 05/02/19 04:31 Pulse Ox 95 05/02/19 04:31 Intake & Output 05/01/19 05/02/19 05/02/19 18:59 06:59 18:59 Intake Total 420 2260 Output Total 42 Balance 378 2260 Weight 138.799 kg Intake: Intake, IV Titration 1000 Amount Sodium Chloride 0.9% 1, 1000 000 ml @ 100 mls/hr IV . Q10H [facility] Rx#:[id number] Oral 420 1260 Output: Post Void Residual 42 Other: Voiding Method Toilet Toilet Toilet Bedside Commode Bedside Commode Bedside Commode # Voids 2 2 - Labs CBC & Chem 7: 05/02/19 06:57 05/02/19 06:55 Labs: Abnormal Lab Results - Last 24 Hours (Table) 05/01/19 05/02/19 05/02/19 Range/Units 07:16 06:55 06:57 WBC 2.3 L 2.3 L (3.8-10.6) k/uL RBC 2.70 L 2.57 L (3.80-5.40) m/uL Hgb 9.0 L 8.7 L (11.4-16.0) gm/dL Hct 27.1 L 26.5 L (34.0-46.0) % MCV 100.4 H 102.9 H (80.0-100.0) fL RDW 16.3 H 17.2 H (11.5-15.5) % Plt Count 43 L 48 L (150-450) k/uL Lymphocytes # 0.1 L (1.0-4.8) k/uL Lymphocytes # (Manual) 0.14 L (1.0-4.8) k/uL Sodium 132 L (137-145) mmol/L Carbon Dioxide 18 L (22-30) mmol/L BUN 50 H (7-17) mg/dL Creatinine 3.96 H (0.52-1.04) mg/dL Calcium 6.6 L (8.4-10.2) mg/dL Microbiology - Last 24 Hours (Table) 04/30/19 11:43 Blood Culture Gram Stain - Preliminary Blood Blood Culture - Preliminary Coagulase Negative Staph 04/30/19 13:00 Urine Culture - Preliminary Urine,Voided Group D Enterococcus Assessment and Plan Plan: assessment: 1. Acute kidney injury secondary to ATN secondary to n/v/poor po intake and sepsis. Also component of vancomycin toxicity. Vancomycin level 37.8 from this morning. No evidence of hydronephrosis noted on kidney ultrasound. Baseline cr 1 - 3.96 today. 2. Gram positive bacteremia. Urine culture positive for group D enterococcus. Maintained on IV antibiotics. 3. Breast cancer with mets. Oncology following. 4. Hyponatremia secondary to KIT. Currently hypervolemic. Stable. 5. Metabolic acidosis due to KIT and IVFs. 6. Hypokalemia from poor PO intake. Improved. 7. Pancytopenia due to chemotherapy. 8. Tremors. This can be from gabapentin in the setting of impaired renal fun ction. Doubt uremia. 9. Hypocalcemia secondary to hypoalbuminemia. Corrected calcium 7.8. Plan: Maintain lasix 40 mg daily. Vancomycin dose to be adjusted for renal function. Monitor renal fx and UO closely. D/c'ed NSAIDs. Increase oral bicarb. Decrease dose of gabapentin to 300 mg once daily. Repeat electrolytes in AM. I did discuss with the patient potential need for renal replacement therapy if no improvement in her renal function and urine output in the next 24-48 hours. Patient is quite hesitant but states she will discuss with her family.
--- NOTE | 2019-05-02 15:00 | P.PN ---
Subjective Progress Note Date: 05/02/19 Principal diagnosis: Bacteremia Renal Function worsening, Blood Cultures positive, ID following and Nephrology. Objective - Vital Signs Vital signs: Vital Signs Temp 98.1 F 05/02/19 12:33 Pulse 86 05/02/19 12:33 Resp 20 05/02/19 12:33 BP 98/59 05/02/19 12:33 Pulse Ox 96 05/02/19 12:33 Intake & Output 05/01/19 05/02/19 05/02/19 18:59 06:59 18:59 Intake Total 420 2260 Output Total 42 Balance 378 2260 Weight 138.799 kg Intake: Intake, IV Titration 1000 Amount Sodium Chloride 0.9% 1, 1000 000 ml @ 100 mls/hr IV . Q10H [facility] Rx#:[id number] Oral 420 1260 Output: Post Void Residual 42 Other: Voiding Method Toilet Toilet Toilet Bedside Commode Bedside Commode Bedside Commode # Voids 2 2 - Exam General: Alert and Oriented x3, No Acute Distress Head: Normocytic, Atraumatic Neck: Supple Mouth: No Lesions, No Thrush Eyes: Non-sclerotic No Palpable cervical, supraclavicular, axillary adenopathy Heart: Regular Rate, Regular Rhythm Lungs: Clear to Ausculations, No Wheeze, No Rhonchi, Diminishe bilateral lower lobes, No increased respiratory effort noted Abdomen: Soft, Non-Distended, Non-Tended, BSx4 Extremities: No Edema, Equal Strength Neurological: No Focal Defects: No sensory or motor deficits noted Psych: Calm and cooperative - Labs CBC & Chem 7: 05/02/19 06:57 05/02/19 06:55 Labs: Abnormal Lab Results - Last 24 Hours (Table) 05/02/19 05/02/19 Range/Units 06:55 06:57 WBC 2.3 L (3.8-10.6) k/uL RBC 2.57 L (3.80-5.40) m/uL Hgb 8.7 L (11.4-16.0) gm/dL Hct 26.5 L (34.0-46.0) % MCV 102.9 H (80.0-100.0) fL RDW 17.2 H (11.5-15.5) % Plt Count 48 L (150-450) k/uL Lymphocytes # (Manual) 0.14 L (1.0-4.8) k/uL Sodium 132 L (137-145) mmol/L Carbon Dioxide 18 L (22-30) mmol/L BUN 50 H (7-17) mg/dL Creatinine 3.96 H (0.52-1.04) mg/dL Calcium 6.6 L (8.4-10.2) mg/dL Microbiology - Last 24 Hours (Table) 04/30/19 11:43 Blood Culture Gram Stain - Preliminary Blood Blood Culture - Preliminary Coagulase Negative Staph 04/30/19 13:00 Urine Culture - Preliminary Urine,Voided Group D Enterococcus Assessment and Plan Plan: Pancytopenia: - Secondary to chemotherapy with ibrance and Radiation - Hold chemotherapy at this time - Hold AC therapy platlets less than 50K - Check Coags Fevers and Chills: - Blood Cultures - Prliminary gram positive cocci - Urine Culture - ID to Consult - Afebrile 24 hours Acute Renal Insufficiency: worsening - Monitor Daily. - Defer to Nephrology, possible need for replacement if no improvements in 24- 48 hours Metastatic Breast cancer - Bone - ?Progression - Xgeva,Faslodex and Ibrance recently prescribed at progression - XRT to spine recently completed Radiation Burn Posterior thorax: resolved. - Silvadene Neoplastic Related Pain: - Continue current pain regimen - Add bowel protocol.
[2019-05-02] MEDS: ATORVASTATIN 40 MG TAB PO SCH (19:57)
[2019-05-02] MEDS: MONTELUKAST 10 MG TAB PO SCH (19:57)
--- NOTE | 2019-05-03 00:55 | P.PN ---
Subjective Progress Note Date: 05/02/19 Pleasant 63-year-old female is a complex past medical history regarding her breast carcinoma. 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 Because of increasing pain and neurological difficulties she was evaluated was treated with radiation therapy to the cervical and thoracic spine . She Developed extensive radiation dermatitis and esophagitis. She was hospitalized [facility] and with treatment of the skin and esophagitis she had marked improvement. She has had a subsequent hospitalization at the outside facility where she had a urinary tract infection. She now presents to Hospital feeling poorly with evidence significant weakness with fever 102, chills and evidence of new abnormality. Chest x-ray acute renal failure and generalized malaise. With fluid resuscitation antibiotic therapy she started to feel somewhat better. Cultures are in process with concerns to urinary tract infection as a source of the current bout of sepsis. 05/02/2017 the patient's renal failure continues but her fevers improved. With the elevated vancomycin level this is put on hold. Objective - Vital Signs Vital signs: Vital Signs Temp 97.6 F 05/02/19 21:00 Pulse 85 05/02/19 21:00 Resp 16 05/02/19 21:00 BP 119/60 05/02/19 21:00 Pulse Ox 95 05/02/19 21:00 Intake & Output 05/02/19 05/02/19 05/03/19 06:59 18:59 06:59 Intake Total 2260 Output Total 350 800 Balance 2260 -350 -800 Intake: Intake, IV Titration 1000 Amount Sodium Chloride 0.9% 1, 1000 000 ml @ 100 mls/hr IV . Q10H [facility] Rx#:[id number] Oral 1260 Output: Urine 350 800 Other: Voiding Method Toilet Toilet Toilet Bedside Commode Bedside Commode Bedside Commode # Voids 2 2 - Exam 63-year-old woman presents to Hospital feeling poorly with fever and chills HEENT: Anicteric conjunctiva are pink and moist nasal mucosa grossly intact without significant lesions, there is no thrush. Neck: The neck is supple without significant lymphadenopathy or thyromegaly. Lungs: Good bilateral air entry without significant crackles or wheezing. There is no significant bronchial sounds. There is no egophony or dullness. Heart: Regular rate and rhythm with an audible S1-S2, no S3 no S4. There is no significant murmur click or rub, PMI was nondisplaced. Abdomen: Positive bowel sounds soft minimal tenderness is noted in the right upper quadrant without palpable masses or organomegaly. There was no guarding or rebound. Extremities: The upper extremities have excellent pulses they are symmetric, no significant petechiae or telangiectasia. No splinter hemorrhages were noted. The lower extremities are free from significant edema. The peripheral pulses were 2+ and symmetric. Neuro: Awake alert oriented to person place and time. There are no acute new gross focal sensory motor deficits. Skin reveals evidence of the resolution of the radiation dermatitis does have some residual color change but there is nothing ulcer. She is not having any further difficulties with the esophagitis either although does have a bit of dry mouth and throat. - Labs CBC & Chem 7: 05/02/19 06:57 05/02/19 06:55 Labs: Abnormal Lab Results - Last 24 Hours (Table) 05/02/19 05/02/19 Range/Units 06:55 06:57 WBC 2.3 L (3.8-10.6) k/uL RBC 2.57 L (3.80-5.40) m/uL Hgb 8.7 L (11.4-16.0) gm/dL Hct 26.5 L (34.0-46.0) % MCV 102.9 H (80.0-100.0) fL RDW 17.2 H (11.5-15.5) % Plt Count 48 L (150-450) k/uL Lymphocytes # (Manual) 0.14 L (1.0-4.8) k/uL Sodium 132 L (137-145) mmol/L Carbon Dioxide 18 L (22-30) mmol/L BUN 50 H (7-17) mg/dL Creatinine 3.96 H (0.52-1.04) mg/dL Calcium 6.6 L (8.4-10.2) mg/dL Microbiology - Last 24 Hours (Table) 05/02/19 09:21 Sputum Culture - Preliminary Sputum 04/30/19 11:43 Blood Culture Gram Stain - Preliminary Blood Blood Culture - Preliminary Coagulase Negative Staph Laboratory Results WBC 2.3 k/uL (3.8-10.6) L 05/02/19 06:57 RBC 2.57 m/uL (3.80-5.40) L 05/02/19 06:57 Hgb 8.7 gm/dL (11.4-16.0) L 05/02/19 06:57 Hct 26.5 % (34.0-46.0) L 05/02/19 06:57 MCV 102.9 fL (80.0-100.0) H 05/02/19 06:57 MCH 33.9 pg (25.0-35.0) 05/02/19 06:57 MCHC 32.9 g/dL (31.0-37.0) 05/02/19 06:57 RDW 17.2 % (11.5-15.5) H 05/02/19 06:57 Plt Count 48 k/uL (150-450) L 05/02/19 06:57 Neutrophils % 90 % 05/01/19 07:16 Neutrophils % (Manual) 86 % 05/02/19 06:57 Band Neutrophils % 2 % 05/02/19 06:57 Lymphocytes % 4 % 05/01/19 07:16 Lymphocytes % (Manual) 6 % 05/02/19 06:57 Monocytes % 2 % 05/01/19 07:16 Monocytes % (Manual) 4 % 05/02/19 06:57 Eosinophils % 1 % 05/01/19 07:16 Eosinophils % (Manual) 2 % 05/02/19 06:57 Basophils % 1 % 05/01/19 07:16 Neutrophils # 2.0 k/uL (1.3-7.7) 05/01/19 07:16 Neutrophils # (Manual) 2.00 k/uL (1.3-7.7) 05/02/19 06:57 Lymphocytes # 0.1 k/uL (1.0-4.8) L 05/01/19 07:16 Lymphocytes # (Manual) 0.14 k/uL (1.0-4.8) L 05/02/19 06:57 Monocytes # 0.1 k/uL (0-1.0) 05/01/19 07:16 Monocytes # (Manual) 0.09 k/uL (0-1.0) 05/02/19 06:57 Eosinophils # 0.0 k/uL (0-0.7) 05/01/19 07:16 Eosinophils # (Manual) 0.05 k/uL (0-0.7) 05/02/19 06:57 Basophils # 0.0 k/uL (0-0.2) 05/01/19 07:16 Nucleated RBCs 0 /100 WBC (0-0) 05/02/19 06:57 Manual Slide Review Performed 05/02/19 06:57 Large Platelets Present 04/30/19 11:43 Poikilocytosis (manual Present 05/02/19 06:57 Anisocytosis Slight 05/02/19 06:57 Anisocytosis (manual) Present 05/01/19 07:16 Macrocytosis Moderate 05/02/19 06:57 Rouleaux Present 05/02/19 06:57 PT 10.7 sec (9.0-12.0) 05/01/19 12:37 INR 1.0 (<1.2) 05/01/19 12:37 APTT 26.3 sec (22.0-30.0) 05/01/19 12:37 Sodium 132 mmol/L (137-145) L 05/02/19 06:55 Potassium 4.2 mmol/L (3.5-5.1) 05/02/19 06:55 Chloride 102 mmol/L (98-107) 05/02/19 06:55 Carbon Dioxide 18 mmol/L (22-30) L 05/02/19 06:55 Anion Gap 12 mmol/L 05/02/19 06:55 BUN 50 mg/dL (7-17) H 05/02/19 06:55 Creatinine 3.96 mg/dL (0.52-1.04) H 05/02/19 06:55 Est GFR (CKD-EPI)AfAm 13 (>60 ml/min/1.73 sqM) 05/02/19 06:55 Est GFR (CKD-EPI)NonAf 11 (>60 ml/min/1.73 sqM) 05/02/19 06:55 Glucose 95 mg/dL (74-99) 05/02/19 06:55 Plasma Lactic Acid Jon 1.5 mmol/L (0.7-2.0) 04/30/19 11:43 Calcium 6.6 mg/dL (8.4-10.2) L 05/02/19 06:55 Phosphorus 2.6 mg/dL (2.5-4.5) 04/30/19 11:43 Magnesium 2.2 mg/dL (1.6-2.3) 05/02/19 06:55 Total Bilirubin 0.9 mg/dL (0.2-1.3) 05/01/19 07:16 AST 90 U/L (14-36) H 05/01/19 07:16 ALT 48 U/L (9-52) 05/01/19 07:16 Alkaline Phosphatase 70 U/L (38-126) 05/01/19 07:16 Total Protein 5.7 g/dL (6.3-8.2) L 05/01/19 07:16 Albumin 2.6 g/dL (3.5-5.0) L 05/01/19 07:16 Urine Color Dark Brown 04/30/19 13:00 Urine Appearance Turbid (Clear) H 04/30/19 13:00 Urine pH 5.0 (5.0-8.0) 04/30/19 13:00 Ur Specific Wallace 1.016 (1.001-1.035) 04/30/19 13:00 Urine Protein 2+ (Negative) H 04/30/19 13:00 Urine Glucose (UA) Negative (Negative) 04/30/19 13:00 Urine Ketones Negative (Negative) 04/30/19 13:00 Urine Blood Large (Negative) H 04/30/19 13:00 Urine Nitrite Negative (Negative) 04/30/19 13:00 Urine Bilirubin Negative (Negative) 04/30/19 13:00 Urine Urobilinogen 4.0 mg/dL (<2.0) 04/30/19 13:00 Ur Leukocyte Esterase Large (Negative) H 04/30/19 13:00 Urine RBC >182 /hpf (0-5) H 04/30/19 13:00 Urine WBC 40 /hpf (0-5) H 04/30/19 13:00 Urine WBC Clumps Occasional /hpf (None) H 04/30/19 13:00 Ur Squamous Epith Cells 13 /hpf (0-4) H 04/30/19 13:00 Urine Bacteria Moderate /hpf (None) H 04/30/19 13:00 Urine Mucus Occasional /hpf (None) H 04/30/19 13:00 Random Vancomycin 37.8 ug/mL 05/02/19 06:55 Influenza Type A RNA Not Detected (Not Detectd) 04/30/19 13:04 Influenza Type B (PCR) Not Detected (Not Detectd) 04/30/19 13:04 Microbiology 05/02/19 09:21 Sputum Sputum Culture - Preliminary 04/30/19 11:43 Blood Blood Culture Gram Stain - Preliminary 04/30/19 11:43 Blood Blood Culture - Preliminary Coagulase Negative Staph 04/30/19 13:00 Urine,Voided Urine Culture - Preliminary Group D Enterococcus 04/30/19 11:43 Blood Blood Culture - Final Assessment and Plan (1) Acute renal failure Current Visit: Yes Status: Acute Code(s): N17.9 - ACUTE KIDNEY FAILURE, UNSPECIFIED SNOMED Code(s): 02526276 (2) Gram-positive cocci bacteremia Current Visit: No Status: Acute Code(s): R78.81 - BACTEREMIA SNOMED Code(s): 964446709613 (3) Metastatic breast carcinoma Current Visit: Yes Status: Chronic Priority: Medium Code(s): C50.919 - MALIGNANT NEOPLASM OF UNSP SITE OF UNSPECIFIED FEMALE BREAST SNOMED Code(s): 622968688 (4) Urinary tract infection Narrative/Plan: 63-year-old woman who has a history of the metastaticBreast carcinoma with evidence of significant metastasis to the skeleton as well as liver metastasis presents to Hospital feeling poorly with another bout of fever chills malaise occurring after her recent treatment with chemotherapy. Been seen by her oncology team and chemotherapy is now on hold. He does not have severe neutropenia and is being monitored. There is evidence of urinary tract infection is likely etiology her current sepsis and laboratories: Positive blood culture with gram-positive cocci. She's had several prior blood cultures with gram-positive cocci that has been staphylococcus ludegensis, which is a coagulase-negative staph and since the patient does not have an indwelling catheter has not been thought to be a significant pathogen. Somewhat concerning if it continues to be found. Urine culture is showing evidence of gram-positive cocci and constantly Acromycin therapy is being utilized as well as Rocephin until there is further data. She has developed acute renal failure and consequently very close monitoring with vancomycin therapy is indicated we'll try to limit the dosing as much as possible. Nephrology will be seeing her for her acute increase of her creatinine to 3.46. 2-D echocardiogram has been requested and she shall be monitored. 05/02/2018 dear culture now shows evidence of enterococcus blood cultures are growing coagulase negative staph. Antibiotic therapy will now be D escalated. The Rocephin and vancomycin are discontinued. Vancomycin level currently is elevated. Once his level falls to less than 15 will then be able to initiate alternative antibiotic therapy for the treatment of the enterococcus. If blood cultures remain negative would not need further IV antibiotic therapy. Current Visit: Yes Status: Acute Code(s): N39.0 - URINARY TRACT INFECTION, SITE NOT SPECIFIED SNOMED Code(s): 09436934
--- NOTE | 2019-05-03 05:28 | P.PN ---
Subjective Progress Note Date: 05/02/19 Principal diagnosis: This is a 63-year-old female was recently admitted for shortness of breath, fever and chills, weakness and lethargy and is being closely monitored. Right lower pneumonia suspected. Nephrology was consulted due to an increase in creatinine. IV fluids will be discontinued as patient is eating and drinking and tolerating well. Will continue with oral Lasix. Patient continues to have some mild edema to the bilateral lower extremities. oncology is following as well. Patient denies any chest pain or palpitations at this time. Patient states that she is having some mild shortness of breath which has improved since yesterday. Patient is afebrile. Patient denies any nausea or vomiting and is tolerating diet. Guarded prognosis 05/02/2019 Patient is sitting up in chair in no acute distress. Patient states that she does not feel well today. Patient states that she slept well but woke up with no appetite and feeling overall not well. Patient states that her breathing has slightly improved and still having an occasional cough. Patient is continued on bronchodilators at this time. Patient denies any chest pain, shortness of breath, or palpitations at this time. Patient is afebrile. Patient denies any nausea or vomiting just has no appetite. Guarded prognosis. Objective - Vital Signs Vital signs: Vital Signs Temp 97.6 F 05/02/19 21:00 Pulse 85 05/02/19 21:00 Resp 16 05/02/19 21:00 BP 119/60 05/02/19 21:00 Pulse Ox 95 05/02/19 21:00 Intake & Output 05/02/19 05/02/19 05/03/19 06:59 18:59 06:59 Intake Total 2260 Output Total 350 800 Balance 2260 -350 -800 Intake: Intake, IV Titration 1000 Amount Sodium Chloride 0.9% 1, 1000 000 ml @ 100 mls/hr IV . Q10H [facility] Rx#:[id number] Oral 1260 Output: Urine 350 800 Other: Voiding Method Toilet Toilet Toilet Bedside Commode Bedside Commode Bedside Commode # Voids 2 2 - Exam Gen: This is a 63-year-old female sitting up in a chair in no acute distress. Vital signs are stable. Temp is 98.2F, pulse is 95, respirations are 16, blood pressure is 106/69, oxygen saturation is 95% on room air. HEENT: Head is atraumatic, normocephalic. Pupils equal, round. Sclerae is anicteric. NECK: Supple. No JVD. No lymphadenopathy. No thyromegaly. LUNGS: Diminished breath sounds at the bases with a few scattered rhonchi. No wheezing or crackles noted. No intercostal retractions. HEART: S1 and S2 are muffled. No murmur. ABDOMEN: Soft. Obese. Bowel sounds are present. No masses. No tenderness. EXTREMITIES: Mild bilateral lower extremity swelling. No calf tenderness. NEUROLOGICAL: Patient is awake, alert and oriented x3. Cranial nerves 2 through 12 are grossly intact. - Labs CBC & Chem 7: 05/02/19 06:57 05/02/19 06:55 Labs: Abnormal Lab Results - Last 24 Hours (Table) 05/02/19 05/02/19 Range/Units 06:55 06:57 WBC 2.3 L (3.8-10.6) k/uL RBC 2.57 L (3.80-5.40) m/uL Hgb 8.7 L (11.4-16.0) gm/dL Hct 26.5 L (34.0-46.0) % MCV 102.9 H (80.0-100.0) fL RDW 17.2 H (11.5-15.5) % Plt Count 48 L (150-450) k/uL Lymphocytes # (Manual) 0.14 L (1.0-4.8) k/uL Sodium 132 L (137-145) mmol/L Carbon Dioxide 18 L (22-30) mmol/L BUN 50 H (7-17) mg/dL Creatinine 3.96 H (0.52-1.04) mg/dL Calcium 6.6 L (8.4-10.2) mg/dL Microbiology - Last 24 Hours (Table) 05/02/19 09:21 Gram Stain - Preliminary Sputum Sputum Culture - Preliminary 04/30/19 13:00 Urine Culture - Final Urine,Voided Enterococcus faecalis Assessment and Plan Assessment: Acute right lobe pneumonia with sepsis and neutropenic sepsis pancytopenia secondary to chemotherapy Carcinoma of the breast 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 Hyponatremia Increased creatinine with acute renal failure, possibly acute prerenal failure with acute tubular necrosis Hypocalcemia increased AST Obesity with a body mass index of 59.8 History of hypertension History of hyperlipidemia History of CVA, left-sided History of breast surgery Remote history of nicotine dependence Recommendations and discussion: Due to multiple complex medical issues recommend to continue current medicati ons, management, and symptomatic treatment. Will continue on IV antibiotics at this time. Infectious disease is following. Blood culture show coagulase negative staph and urine shows enterococcus faecalis, sputum is pending at this time. Awaiting final report. Nephrology is following. Possible dialysis if renal function doesn't improve. Patient is hesitant and would like to discuss this with family. Oncology is following. Continue with bronchodilators and oral Lasix. IV fluids have been discontinued. Will monitor vital signs and labs closely. Repeat labs in the morning. Guarded prognosis. Further recommendations to follow.
[2019-05-03] MEDS: PANTOPRAZOLE 40 MG TABLET PO SCH (08:34)
[2019-05-03] MEDS: SUCRALFATE 1 GM TAB PO SCH ×4 (08:34→21:33)
[2019-05-03] MEDS: SODIUM BICARBONATE TAB 650 MG TAB PO SCH ×2 (08:41→21:32)
[2019-05-03] MEDS: ASPIRIN 81 MG PO SCH (08:41)
[2019-05-03] MEDS: POTASSIUM CHLORIDE ER 20 MEQ TAB.ER PO SCH (08:42)
[2019-05-03] MEDS: FUROSEMIDE 40 MG TAB PO SCH (08:42)
[2019-05-03] MEDS: FLUTICASONE 50MCG/SPRAY NASAL 16GM EA NOSTRIL SCH (08:42)
[2019-05-03] MEDS: DILTIAZEM CD 180 MG CAP.ER.24H PO SCH (08:42)
[2019-05-03] MEDS: GABAPENTIN 300 MG CAP PO SCH (08:42)
[2019-05-03] MEDS: ALPRAZolam 0.25 MG TAB PO PRN ×2 (08:47→23:56)
[2019-05-03] MEDS: IPRATROPIUM-ALBUTEROL 3 ML NEB INHALATION SCH ×4 (09:12→20:53)
[2019-05-03] MEDS: BUDESONIDE 1 MG/2 ML NEBU INHALATION SCH ×2 (09:12→20:52)
--- NOTE | 2019-05-03 09:21 | P.PN ---
Subjective Patient is seen in follow-up for acute kidney injury. Renal function has been worsening the last few days. Creatinine 2.96 as of yesterday. Tremors have improved. No vomiting or diarrhea. Oral intake is fair. She has been voiding. She is nonoliguric. Vital signs are stable. General: The patient appeared well nourished and normally developed. HEENT: Head exam is unremarkable. Neck is without jugular venous distension. LUNGS: Lungs are clear to auscultation and percussion. Breath sounds decreased. HEART: Rate and Rhythm are regular. First and second heart sounds normal. No murmurs, rubs or gallops. ABDOMEN: Abdominal exam reveals normal bowel sounds. Non-tender and non- distended. No evidence of peritonitis. EXTREMITITES: 1+ edema. Objective - Vital Signs Vital signs: Vital Signs Temp 98.2 F 05/03/19 05:00 Pulse 88 05/03/19 09:12 Resp 18 05/03/19 05:00 BP 127/64 05/03/19 05:00 Pulse Ox 96 05/03/19 05:00 Intake & Output 05/02/19 05/03/19 05/03/19 18:59 06:59 18:59 Output Total 350 1300 Balance -350 -1300 Output: Urine 350 1300 Other: Voiding Method Toilet Toilet Toilet Bedside Commode Bedside Commode Bedside Commode # Voids 2 1 - Labs CBC & Chem 7: 05/02/19 06:57 05/02/19 06:55 Labs: Abnormal Lab Results - Last 24 Hours (Table) 05/02/19 05/02/19 Range/Units 06:55 06:57 WBC 2.3 L (3.8-10.6) k/uL RBC 2.57 L (3.80-5.40) m/uL Hgb 8.7 L (11.4-16.0) gm/dL Hct 26.5 L (34.0-46.0) % MCV 102.9 H (80.0-100.0) fL RDW 17.2 H (11.5-15.5) % Plt Count 48 L (150-450) k/uL Lymphocytes # (Manual) 0.14 L (1.0-4.8) k/uL Sodium 132 L (137-145) mmol/L Carbon Dioxide 18 L (22-30) mmol/L BUN 50 H (7-17) mg/dL Creatinine 3.96 H (0.52-1.04) mg/dL Calcium 6.6 L (8.4-10.2) mg/dL Microbiology - Last 24 Hours (Table) 05/02/19 09:21 Gram Stain - Preliminary Sputum Sputum Culture - Preliminary 04/30/19 13:00 Urine Culture - Final Urine,Voided Enterococcus faecalis Assessment and Plan Plan: assessment: 1. Acute kidney injury secondary to ATN secondary to n/v/poor po intake and sepsis. Also component of vancomycin toxicity. Vancomycin level 37.8 from May 02. No evidence of hydronephrosis noted on kidney ultrasound. Baseline cr 1 - 3.96 as of yesterday. 2. Coagulase-negative staph bacteremia. Urine culture positive for enterococcus fasecalis. Maintained on IV antibiotics. 3. Breast cancer with mets. Oncology following. 4. Hyponatremia secondary to KIT. Currently hypervolemic. Stable. 5. Metabolic acidosis due to KIT and IVFs. Maintained on oral sodium bicarbonate. 6. Hypokalemia from poor PO intake. Improved. 7. Pancytopenia due to chemotherapy. 8. Tremors. This can be from gabapentin in the setting of impaired renal function as well as albuterol. Doubt uremia. Better. 9. Hypocalcemia secondary to hypoalbuminemia. Corrected calcium 7.8. Plan: Maintain lasix 40 mg daily. Vancomycin dose to be adjusted for renal function. Monitor renal fx and UO closely. D/c'ed NSAIDs. Decreased dose of gabapentin to 300 mg once daily. Follow-up morning labs. I will also order serologies. I did discuss with the patient potential need for renal replacement therapy if no improvement in her renal function and urine output in the next 24-48 hours. Patient is agreeable to proceed if needed.
[2019-05-03 09:30] LABS: Anisocytosis Slight; Basophils % (A) 1 %; Eosinophils # (A) 0.1 k/uL (0-0.7); Eosinophils % (A) 4 %; HCT 27.7 % (34.0-46.0); HGB 9.4 gm/dL (11.4-16.0); Lymphocytes # (A) 0.1 k/uL (1.0-4.8); Lymphocytes % (A) 4 %; MCV 100.1 fL (80.0-100.0); Macrocytosis Slight; Mean Platelet Volume 9.3; Monocytes # (A) 0.2 k/uL (0-1.0); Monocytes % (A) 7 %; Neutrophils # (A) 1.9 k/uL (1.3-7.7); Neutrophils % (A) 80 %; RBC 2.76 m/uL (3.80-5.40); RDW 17.4 % (11.5-15.5); WBC 2.3 k/uL (3.8-10.6)
[2019-05-03 09:33] LABS: Calcium 6.9 mg/dL (8.4-10.2); Magnesium 2.1 mg/dL (1.6-2.3); Potassium 4.2 mmol/L (3.5-5.1)
[2019-05-03 12:23] LABS: Platelet Count 88 k/uL (150-450)
--- NOTE | 2019-05-03 15:06 | XR ---
EXAMINATION TYPE: XR chest 1V portable DATE OF EXAM: 05/03/2019 COMPARISON: 05/01/2019 HISTORY: Short of breath TECHNIQUE: Single frontal view of the chest is obtained. FINDINGS: There is some patchy airspace infiltrate in the right upper lobe. The left lung is clear. There is no heart failure. There is large right pericardial fat pad. There is no pleural effusion. IMPRESSION: There is a new right upper lobe pneumonia compared to last exam. No heart failure.
[2019-05-03] MEDS: HYDROcodone/APAP 5-325MG 1 EACH TAB PO PRN (17:47)
[2019-05-03] MEDS: methylPREDNISolone SOD SUCCI 125 MG/2 ML VIAL IV SCH ×2 (20:14→23:56)
[2019-05-03 20:19] LABS: Glucose,Whole Blood 173 mg/dL (75-99)
[2019-05-03] MEDS: ATORVASTATIN 40 MG TAB PO SCH (21:32)
[2019-05-03] MEDS: MONTELUKAST 10 MG TAB PO SCH (21:32)
[2019-05-03] MEDS: INSULIN ASPART (NovoLOG) 100 UNIT/ML VIAL SQ SCH (21:33)
--- NOTE | 2019-05-03 22:45 | PN ---
PROGRESS NOTE DATE OF SERVICE: 05/03/2019 This 66-year-old woman who was admitted with acute right lower lobe pneumonia with possible sepsis, neutropenic sepsis also had pancytopenia the patient include seen by multiple consultants and creatinine is also worsening to 4.5 at this time. The patient being closely monitored and nephrology has seen today and Dr. Tim has seen the patient today. The 18 was thought to be secondary to poor p.o. intake and as well as sepsis, possibly a component vancomycin toxicity was also suspected. The cultures urine cultures showed Enterococcus faecalis which is vancomycin sensitive and blood culture only showed coagulase-negative Staph. The patient closely monitor creatinine has worsened today to 4.55. The patient has significant shortness of breath also at this time. The chest x-ray which was to which was done today which showed evidence of fluid overload versus pneumonia. PAST MEDICAL HISTORY: Reviewed. REVIEW OF SYSTEMS: CARDIOVASCULAR SYSTEM: No angina respiration mentioned earlier. GI: As mentioned earlier. CURRENT MEDICATIONS: [place] 5 mg q.4 p.r.n. 1. DuoNeb q.i.d. and p.r.n. 2. Xanax 0.5 t.i.d. 3. Aspirin 81 60 mg. 4. Lipitor 40 mg q.h.s. Pulmicort 1 mg b.i.d. 5. Cardizem CD 180 mg p.o. daily next Flonase daily. 6. Lasix 40 mg daily. 7. Neurontin 300 mg p.o. daily. 8. Singulair 10 mg q.h.s. number Protonix 40 mg daily. 9. MiraLAX 17 g daily. 10.Silvadene cream. 11.Sodium bicarb 1300 mg p.o. b.i.d. 12.Carafate 1 g a.c. use q.h.s. PHYSICAL EXAMINATION: Alert and oriented times three. Pulse 91, blood pressure 116/64, respirations 20, temperature 97.7, pulse ox 98% on 2 L. HEENT: Conjunctivae normal. Oral mucosa moist. NECK is no jugular venous distention. No carotid bruit. No lymph node enlargement. Cardiovascular system: S1, S2 muffled. RESPIRATORY: Breath sounds diminished in the bases. Bilateral scattered rhonchi and crackles. Expiratory wheezing also present. ABDOMEN: Soft, nontender. No mass palpable legs no edema no swelling nervous system after mentioned. Moves all no focal no focal motor lymphatics. Skin: No rashes. Joints: No active arthropathy. LABS: At this time shows WBC 2.2, hemoglobin 9.4, platelets 88 and creatinine is 4.55. ASSESSMENT: 1. Acute right lower lobe pneumonia with possible sepsis and neutropenic sepsis present on admission. 2. Renal failure acute tubular necrosis multifactorial with prerenal factors and sepsis worsening. 3. Pancytopenia secondary to chemotherapy. 4. 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 5. Hyponatremia. 6. Hypocalcemia. 7. Increased AST. 8. Obesity with body mass index of 9.8 next hypertension. 9. History of cerebrovascular accident, left-sided. 10.History of breast surgery. 11.Remote history of nicotine dependence. RECOMMENDATIONS AND DISCUSSION: 1. Recommend to continue current medications, monitor and symptomatic treatment. 2. Otherwise, at this time, I recommend continue with current bronchodilators. The patient has extensive wheezing; at this time, I recommend continue with bronchodilators. Otherwise, follow closely with Nephrology. Also obtain NT proBNP. Echocardiogram done last year showed ejection fraction about 50-60 percent. Will repeat the 2D echo. The prognosis guarded because of multiple complex medical issues. Further recommendations to follow. MMODL / IJN: [id number] /
[2019-05-04] MEDS: IPRATROPIUM-ALBUTEROL 3 ML NEB INHALATION PRN ×2 (00:06→03:23)
[2019-05-04] MEDS: methylPREDNISolone SOD SUCCI 125 MG/2 ML VIAL IV SCH ×2 (05:45→12:38)
[2019-05-04 07:32] LABS: Glucose,Whole Blood 250 mg/dL (75-99)
[2019-05-04] MEDS: INSULIN ASPART (NovoLOG) 100 UNIT/ML VIAL SQ SCH ×4 (07:54→21:24)
[2019-05-04] MEDS: SODIUM BICARBONATE TAB 650 MG TAB PO SCH ×2 (07:56→21:22)
[2019-05-04] MEDS: GABAPENTIN 300 MG CAP PO SCH (07:59)
[2019-05-04] MEDS: DILTIAZEM CD 180 MG CAP.ER.24H PO SCH (08:00)
[2019-05-04] MEDS: ALPRAZolam 0.25 MG TAB PO PRN ×2 (08:00→23:28)
[2019-05-04] MEDS: BUDESONIDE 1 MG/2 ML NEBU INHALATION SCH ×2 (08:00→20:33)
[2019-05-04] MEDS: FLUTICASONE 50MCG/SPRAY NASAL 16GM EA NOSTRIL SCH (08:00)
[2019-05-04] MEDS: FUROSEMIDE 40 MG TAB PO SCH (08:00)
[2019-05-04] MEDS: ASPIRIN 81 MG PO SCH (08:00)
[2019-05-04] MEDS: IPRATROPIUM-ALBUTEROL 3 ML NEB INHALATION SCH ×4 (08:00→20:33)
[2019-05-04] MEDS: PANTOPRAZOLE 40 MG TABLET PO SCH (08:00)
[2019-05-04] MEDS: SUCRALFATE 1 GM TAB PO SCH ×4 (08:00→21:23)
[2019-05-04 08:49] LABS: Anisocytosis Slight; Basophils % (A) 0 %; Eosinophils % (A) 2 %; HCT 28.8 % (34.0-46.0); HGB 9.1 gm/dL (11.4-16.0); Hypochromasia Slight; Lymphocytes # (A) 0.1 k/uL (1.0-4.8); Lymphocytes % (A) 7 %; MCH 32.8 pg (25.0-35.0); MCHC 31.6 g/dL (31.0-37.0); MCV 103.6 fL (80.0-100.0); Macrocytosis Moderate; Mean Platelet Volume 9.6; Monocytes % (A) 2 %; Neutrophils # (A) 1.7 k/uL (1.3-7.7); Neutrophils % (A) 88 %; RBC 2.78 m/uL (3.80-5.40); WBC 1.9 k/uL (3.8-10.6)
[2019-05-04 08:59] LABS: Platelet Count 75 k/uL (150-450)
[2019-05-04 09:01] LABS: Calcium 7.1 mg/dL (8.4-10.2); Magnesium 2.1 mg/dL (1.6-2.3); Potassium 4.4 mmol/L (3.5-5.1)
--- NOTE | 2019-05-04 10:11 | P.PN ---
Subjective Patient is seen in follow-up for acute kidney injury. Renal function has been worsening the last few days. Creatinine 4.83 today. No vomiting or diarrhea. Oral intake is fair. She has been voiding. She is nonoliguric. Vital signs are stable. General: The patient appeared well nourished and normally developed. HEENT: Head exam is unremarkable. Neck is without jugular venous distension. LUNGS: Lungs are clear to auscultation and percussion. Breath sounds decreased. HEART: Rate and Rhythm are regular. First and second heart sounds normal. No murmurs, rubs or gallops. ABDOMEN: Abdominal exam reveals normal bowel sounds. Non-tender and non- distended. No evidence of peritonitis. EXTREMITITES: 1+ edema. Objective - Vital Signs Vital signs: Vital Signs Temp 96.9 F L 05/04/19 05:00 Pulse 84 05/04/19 08:19 Resp 24 05/04/19 05:00 BP 137/73 05/04/19 05:00 Pulse Ox 97 05/04/19 05:00 Intake & Output 05/03/19 05/04/19 05/04/19 18:59 06:59 18:59 Intake Total 1660 Output Total 800 725 Balance -800 935 Intake: Oral 1660 Output: Urine 800 725 Other: Voiding Method Toilet Bedside Commode Bedside Commode Bedside Commode # Voids 1 - Labs CBC & Chem 7: 05/04/19 08:08 05/04/19 08:08 Labs: Abnormal Lab Results - Last 24 Hours (Table) 05/03/19 05/03/19 05/04/19 Range/Units 08:24 20:18 07:31 WBC 2.3 L (3.8-10.6) k/uL RBC 2.76 L (3.80-5.40) m/uL Hgb 9.4 L (11.4-16.0) gm/dL Hct 27.7 L (34.0-46.0) % MCV 100.1 H (80.0-100.0) fL RDW 17.4 H (11.5-15.5) % Plt Count 88 L D (150-450) k/uL Lymphocytes # 0.1 L (1.0-4.8) k/uL Sodium (137-145) mmol/L Carbon Dioxide (22-30) mmol/L BUN (7-17) mg/dL Creatinine (0.52-1.04) mg/dL Glucose (74-99) mg/dL POC Glucose (mg/dL) 173 H 250 H (75-99) mg/dL Calcium (8.4-10.2) mg/dL 05/04/19 05/04/19 Range/Units 08:08 08:08 WBC 1.9 L (3.8-10.6) k/uL RBC 2.78 L (3.80-5.40) m/uL Hgb 9.1 L (11.4-16.0) gm/dL Hct 28.8 L (34.0-46.0) % MCV 103.6 H (80.0-100.0) fL RDW 17.0 H (11.5-15.5) % Plt Count 75 L (150-450) k/uL Lymphocytes # 0.1 L (1.0-4.8) k/uL Sodium 133 L (137-145) mmol/L Carbon Dioxide 15 L (22-30) mmol/L BUN 55 H (7-17) mg/dL Creatinine 4.83 H (0.52-1.04) mg/dL Glucose 232 H (74-99) mg/dL POC Glucose (mg/dL) (75-99) mg/dL Calcium 7.1 L (8.4-10.2) mg/dL Microbiology - Last 24 Hours (Table) 04/30/19 11:43 Blood Culture Gram Stain - Final Blood Blood Culture - Final Staphylococcus lugdunenisis Assessment and Plan Plan: assessment: 1. Acute kidney injury secondary to ATN secondary to n/v/poor po intake and sepsis. Also component of vancomycin toxicity. Vancomycin level 37.8 from May 02 - trending down. No evidence of hydronephrosis noted on kidney ultrasound. Baseline cr 1 - 4.83 today. R/o GN. 2. Staph lugduneisis bacteremia. Urine culture positive for enterococcus faecalis. Maintained on IV antibiotics. 3. Breast cancer with mets. Oncology following. 4. Hyponatremia secondary to KIT. Currently hypervolemic. Stable. 5. Metabolic acidosis due to KIT and IVFs. Maintained on oral sodium bicarbonate. 6. Hypokalemia from poor PO intake. Improved. 7. Pancytopenia due to chemotherapy. 8. Tremors. This can be from gabapentin in the setting of impaired renal function as well as albuterol. Doubt uremia. Better. 9. Hypocalcemia secondary to hypoalbuminemia. Better. Plan: Maintain lasix 40 mg daily. Vancomycin dose to be adjusted for renal function. Monitor renal fx and UO closely. D/c'ed NSAIDs. Decreased dose of gabapentin to 300 mg once daily. Follow-up serologies. I did discuss with the patient potential need for renal replacement therapy if no improvement in her renal function and urine output in the next 24-48 hours. Patient is agreeable to proceed if needed.
[2019-05-04 11:08] LABS: Glucose,Whole Blood 196 mg/dL (75-99)
--- NOTE | 2019-05-04 12:42 | P.CNPUL ---
History of Present Illness Consult date: 05/04/19 Reason for consult: pneumonia History of present illness: I was asked to evaluate this patient for a right upper lobe pneumonia. The patient was also be more short of breath yesterday and his chest x-ray was ordered and showed a questionable infiltrate in the right upper lobe and pneumonia was suspected. Note that the patient is morbidly obese with a BMI 59.8. The patient also has history of metastatic breast cancer for which she has undergone radiation therapy to her cervical spine that was complicated by radiation-induced esophagitis and difficulties in swallowing. She has been on systemic treatment with a combination of Ibrance and Fosladex. The patient presented to the hospital because of pancytopenia and infection and this do not to be a UTI with Enterococcus faecalis and blood culture was positive with Staphylococcus Lugdunenisis , which is a coagulase-negative staph and the patient was covered with vancomycin per IDs recommendations. Time of my evaluation, the patient was afebrile. Pulse ox is 96% on room air. No significant tachycardia. No chest pain. No pleurisy. No hemoptysis. She has some chronic swelling in lower extremities bilaterally. Moist recent white count is at 1.9. Platelet count is at 75. The patient also had developed an acute kidney injury. As the patient had a normal kidney function on 04/16/2019. Creatinine is up to 4.8 and this is probably related to an ATN induced by sepsis and further complicated by possible vancomycin-induced toxicity as the patient's serum vancomycin level was quite elevated with a vancomycin level of 37.8 from May 022018 is down trending. No evidence of any hydronephrosis on the renal ultrasound. Review of Systems All systems: negative Constitutional: Reports weakness Eyes: denies as per HPI, denies blurred vision, denies bulging eye, denies decreased vision, denies diplopia, denies discharge, denies dry eye, denies irritation, denies itching, denies pain, denies photophobia, denies loss of peripheral vision, denies loss of vision, denies tunnel vision/blind spots Ears: deny: decreased hearing, ear discharge, earache, tinnitus Ears, nose, mouth and throat: Denies headache, Denies sore throat Cardiovascular: Reports decreased exercise tolerance, Reports dyspnea on ex ertion, Reports shortness of breath Respiratory: Reports dyspnea Gastrointestinal: Reports as per HPI (Dysphagia related to previous radiation therapy) Genitourinary: Reports as per HPI Menstruation: Reports as per HPI Musculoskeletal: Reports as per HPI, Reports muscle weakness Musculoskeletal: bilateral: ankle swelling, absent: ankle pain, ankle stiffness Integumentary: Reports as per HPI Neurological: Reports as per HPI, Reports weakness Psychiatric: Reports as per HPI Endocrine: Reports as per HPI, Reports fatigue Hematologic/Lymphatic: Reports as per HPI Allergic/Immunologic: Reports as per HPI Past Medical History Past Medical History: Cancer, CVA/TIA, Hyperlipidemia, Hypertension Additional Past Medical History / Comment(s): hx CVA left side 2017, Left breast cancer 1997, spine cancer 2018 History of Any Multi-Drug Resistant Organisms: None Reported Past Surgical History: Breast Surgery, Hysterectomy, Joint Replacement Additional Past Surgical History / Comment(s): left knee replacement, several breast biopsies Past Anesthesia/Blood Transfusion Reactions: No Reported Reaction Smoking Status: Former smoker - Past Family History Father Family Medical History: Cancer Additional Family Medical History / Comment(s): Father from cancer in the lining of his lungs. He had occupational chemical exposures. Mother Family Medical History: Cancer, Coronary Artery Disease (CAD) Additional Family Medical History / Comment(s): Mother had colon cancer with surgery. She also had heart disease. Medications and Allergies Home Medications Medication Instructions Recorded Confirmed Type Aspirin [Adult Low Dose Aspirin EC] 162 mg PO DAILY 07/03/18 04/30/19 History Atorvastatin [Lipitor] 40 mg PO HS 07/03/18 04/30/19 History Diltiazem HCl [Diltiazem 24Hr ER 180 mg PO DAILY 07/03/18 04/30/19 History (CD)] Albuterol Inhaler [Ventolin Hfa 2 puff INHALATION RT-QID PRN 03/05/19 04/30/19 History Inhaler] Fluticasone Nasal [place] [Flonase 1 spray EA NOSTRIL DAILY 03/05/19 04/30/19 History Nasal [place]] Furosemide [Lasix] 40 mg PO DAILY 03/05/19 04/30/19 History Gabapentin [Neurontin] 300 mg PO DAILY 03/05/19 04/30/19 History Gabapentin [Neurontin] 600 mg PO HS 03/05/19 04/30/19 History Letrozole [Femara] 2.5 mg PO DAILY 03/05/19 04/30/19 History Montelukast [Singulair] 10 mg PO HS 03/05/19 04/30/19 History Omeprazole 20 mg PO DAILY 03/05/19 04/30/19 History Potassium Chloride 20 meq PO DAILY 03/05/19 04/30/19 History HYDROcodone/APAP 5-325MG [[place] 1 tab PO Q8HR PRN 3 Days #9 tab 03/11/19 04/30/19 Rx 5-325] Polyethylene Glycol 3350 [Miralax] 17 gm PO DAILY PRN #30 powd.pack 03/11/19 04/30/19 Rx Sucralfate [Carafate] 1 gm PO ACHS #120 tablet 03/11/19 04/30/19 Rx Palbociclib [Ibrance] 125 mg PO DIRECTED 04/30/19 04/30/19 History Allergies Allergy/AdvReac Type Severity Reaction Status Date / Time No Known Allergies Allergy Verified 04/30/19 11:41 Physical Exam Vitals: Vital Signs Temp Pulse Pulse Resp BP Pulse Ox 05/04/19 12:02 97.4 F L 94 16 122/72 96 05/04/19 11:53 96 05/04/19 11:39 92 05/04/19 08:19 84 05/04/19 08:00 80 05/04/19 05:00 96.9 F L 97 24 137/73 97 05/04/19 03:35 88 05/04/19 03:23 84 05/04/19 00:16 96 05/04/19 00:07 88 05/03/19 23:40 98 24 05/03/19 21:13 90 05/03/19 20:53 90 05/03/19 20:05 97.7 F 102 H 28 H 137/56 96 05/03/19 16:28 88 05/03/19 16:18 92 05/03/19 14:43 97.7 F 91 20 116/64 98 05/03/19 14:39 24 97 Intake and Output 05/03/19 05/04/19 05/04/19 22:59 06:59 14:59 Intake Total 420 1240 Output Total 400 325 400 Balance 20 915 -400 Intake: Oral 420 1240 Output: Urine 400 325 400 Other: Voiding Method Toilet Bedside Commode Bedside Commode Bedside Commode # Voids 1 Gen. appearance, comfortable likely distress morbidly obese Head exam was generally normal. There was no scleral icterus or corneal arcus. Mucous membranes were moist. Neck was supple and without jugular venous distension, thyromegaly, or carotid bruits. Carotids were easily palpable bilaterally. There was no adenopathy. Lungs were clear to auscultation and percussion, and with normal diaphragmatic excursion. No wheezes or rales were noted. Cardiac exam revealed the PMI to be normally situated and sized. The rhythm was regular and no extrasystoles were noted during several minutes of auscultation. The first and second heart sounds were normal and physiologic splitting of the second heart sound was noted. There were no murmurs, rubs, clicks, or gallops. Abdominal exam revealed normal bowel sounds. The abdomen was soft, non-tender, and without masses, organomegaly, or appreciable enlargement of the abdominal aorta. Extremities revealed +1 edema and there is no cyanosis or clubbing Neurologically awake and alert and is no focal neurological deficits. Results - Laboratory Findings CBC and BMP: 05/04/19 08:08 05/04/19 08:08 PT/INR, D-dimer PT 10.7 sec (9.0-12.0) 05/01/19 12:37 INR 1.0 (<1.2) 05/01/19 12:37 Abnormal lab findings: Abnormal Labs 04/30/19 04/30/19 04/30/19 11:43 11:43 13:00 WBC 2.3 L RBC 2.75 L Hgb 9.2 L Hct 27.3 L MCV RDW 16.9 H Plt Count 47 L D Lymphocytes # 0.1 L Lymphocytes # (Manual) Sodium 130 L Potassium Chloride Carbon Dioxide BUN 38 H Creatinine 2.69 H Glucose 131 H POC Glucose (mg/dL) Calcium 7.1 L AST 84 H Total Protein 6.0 L Albumin 2.8 L Urine Appearance Turbid H Urine Protein 2+ H Urine Blood Large H Ur Leukocyte Esterase Large H Urine RBC >182 H Urine WBC 40 H Urine WBC Clumps Occasional H Ur Squamous Epith Cells 13 H Urine Bacteria Moderate H Urine Mucus Occasional H 04/30/19 05/01/19 05/01/19 20:31 07:16 07:16 WBC 2.3 L RBC 2.70 L Hgb 9.0 L Hct 27.1 L MCV 100.4 H RDW 16.3 H Plt Count 43 L Lymphocytes # 0.1 L Lymphocytes # (Manual) Sodium 132 L 133 L Potassium 3.3 L Chloride 96 L Carbon Dioxide 20 L BUN 43 H 45 H Creatinine 2.97 H 3.46 H Glucose 117 H 112 H POC Glucose (mg/dL) Calcium 7.0 L 6.5 L AST 105 H 90 H Total Protein 5.7 L Albumin 3.1 L 2.6 L Urine Appearance Urine Protein Urine Blood Ur Leukocyte Esterase Urine RBC Urine WBC Urine WBC Clumps Ur Squamous Epith Cells Urine Bacteria Urine Mucus 05/02/19 05/02/19 05/03/19 06:55 06:57 08:24 WBC 2.3 L 2.3 L RBC 2.57 L 2.76 L Hgb 8.7 L 9.4 L Hct 26.5 L 27.7 L MCV 102.9 H 100.1 H RDW 17.2 H 17.4 H Plt Count 48 L 88 L D Lymphocytes # 0.1 L Lymphocytes # (Manual) 0.14 L Sodium 132 L Potassium Chloride Carbon Dioxide 18 L BUN 50 H Creatinine 3.96 H Glucose POC Glucose (mg/dL) Calcium 6.6 L AST Total Protein Albumin Urine Appearance Urine Protein Urine Blood Ur Leukocyte Esterase Urine RBC Urine WBC Urine WBC Clumps Ur Squamous Epith Cells Urine Bacteria Urine Mucus 05/03/19 05/03/19 05/04/19 08:24 20:18 07:31 WBC RBC Hgb Hct MCV RDW Plt Count Lymphocytes # Lymphocytes # (Manual) Sodium 135 L Potassium Chloride Carbon Dioxide 18 L BUN 51 H Creatinine 4.55 H Glucose 116 H POC Glucose (mg/dL) 173 H 250 H Calcium 6.9 L AST Total Protein Albumin Urine Appearance Urine Protein Urine Blood Ur Leukocyte Esterase Urine RBC Urine WBC Urine WBC Clumps Ur Squamous Epith Cells Urine Bacteria Urine Mucus 05/04/19 05/04/19 05/04/19 08:08 08:08 11:07 WBC 1.9 L RBC 2.78 L Hgb 9.1 L Hct 28.8 L MCV 103.6 H RDW 17.0 H Plt Count 75 L Lymphocytes # 0.1 L Lymphocytes # (Manual) Sodium 133 L Potassium Chloride Carbon Dioxide 15 L BUN 55 H Creatinine 4.83 H Glucose 232 H POC Glucose (mg/dL) 196 H Calcium 7.1 L AST Total Protein Albumin Urine Appearance Urine Protein Urine Blood Ur Leukocyte Esterase Urine RBC Urine WBC Urine WBC Clumps Ur Squamous Epith Cells Urine Bacteria Urine Mucus - Diagnostic Findings Chest x-ray: image reviewed Assessment and Plan Plan: 1 dyspnea multifactorial related to underlying sepsis/UTI/renal failure/anemia. A superimposed pneumonia is doubtful at this stage. The patient is currently on room air oxygen. No acute signs of pneumonia. The right upper lobe infiltrate is quite vague and this to be monitored. 2 acute kidney injury secondary to ATN, possible vancomycin nephrotoxicity 3 Staph lugduneisis bacteremia, on vancomycin 4 enterococcus faecalis UTI currently on vancomycin 5 metabolic acidosis secondary to acute kidney injury currently on or lack of 6 hyponatremia secondary to a [place] 7 metastatic breast cancer 8 pancytopenia, drug induced 9 skeletal metastases post radiation therapy 10 obesity with BMI 59.8 11 dictation 12 hyperlipidemia 13 history of CVA involving left side of the body Plan Repeat chest x-ray in the morning. Monitor cultures. Continue vancomycin. We'll continue to follow.
--- NOTE | 2019-05-04 15:37 | P.PN ---
Subjective Progress Note Date: 05/04/19 Principal diagnosis: Bacteremia SOB is worse today requiring oxygen 2L, Pulm is following, renal function increased creatinine 4.8 Objective - Vital Signs Vital signs: Vital Signs Temp 97.4 F L 05/04/19 12:02 Pulse 88 05/04/19 15:27 Resp 16 05/04/19 12:02 BP 122/72 05/04/19 12:02 Pulse Ox 96 05/04/19 12:02 Intake & Output 05/03/19 05/04/19 05/04/19 18:59 06:59 18:59 Intake Total 1660 Output Total 800 725 400 Balance -800 935 -400 Intake: Oral 1660 Output: Urine 800 725 400 Other: Voiding Method Toilet Bedside Commode Bedside Commode Bedside Commode # Voids 1 0 - Exam General: Alert and Oriented x3, No Acute Distress Head: Normocytic, Atraumatic Neck: Supple Mouth: No Lesions, No Thrush Eyes: Non-sclerotic No Palpable cervical, supraclavicular, axillary adenopathy Heart: Regular Rate, Regular Rhythm Lungs: Clear to Ausculations, No Wheeze, No Rhonchi, Diminishe bilateral lower lobes, No increased respiratory effort noted Abdomen: Soft, Non-Distended, Non-Tended, BSx4 Extremities: No Edema, Equal Strength Neurological: No Focal Defects: No sensory or motor deficits noted Psych: Calm and cooperative - Labs CBC & Chem 7: 05/04/19 08:08 05/04/19 08:08 Labs: Abnormal Lab Results - Last 24 Hours (Table) 05/03/19 05/04/19 05/04/19 Range/Units 20:18 07:31 08:08 WBC (3.8-10.6) k/uL RBC (3.80-5.40) m/uL Hgb (11.4-16.0) gm/dL Hct (34.0-46.0) % MCV (80.0-100.0) fL RDW (11.5-15.5) % Plt Count (150-450) k/uL Lymphocytes # (1.0-4.8) k/uL Sodium 133 L (137-145) mmol/L Carbon Dioxide 15 L (22-30) mmol/L BUN 55 H (7-17) mg/dL Creatinine 4.83 H (0.52-1.04) mg/dL Glucose 232 H (74-99) mg/dL POC Glucose (mg/dL) 173 H 250 H (75-99) mg/dL Calcium 7.1 L (8.4-10.2) mg/dL 05/04/19 05/04/19 Range/Units 08:08 11:07 WBC 1.9 L (3.8-10.6) k/uL RBC 2.78 L (3.80-5.40) m/uL Hgb 9.1 L (11.4-16.0) gm/dL Hct 28.8 L (34.0-46.0) % MCV 103.6 H (80.0-100.0) fL RDW 17.0 H (11.5-15.5) % Plt Count 75 L (150-450) k/uL Lymphocytes # 0.1 L (1.0-4.8) k/uL Sodium (137-145) mmol/L Carbon Dioxide (22-30) mmol/L BUN (7-17) mg/dL Creatinine (0.52-1.04) mg/dL Glucose (74-99) mg/dL POC Glucose (mg/dL) 196 H (75-99) mg/dL Calcium (8.4-10.2) mg/dL Microbiology - Last 24 Hours (Table) 05/02/19 09:21 Gram Stain - Final Sputum Sputum Culture - Final Mary albicans 04/30/19 11:43 Blood Culture Gram Stain - Final Blood Blood Culture - Final Staphylococcus lugdunenisis Assessment and Plan Plan: Pancytopenia: - Secondary to chemotherapy with ibrance and Radiation - Hold chemotherapy at this time - Hold AC therapy platlets less than 50K - Check Coags Fevers and Chills: - Blood Cultures - Prliminary gram positive cocci - Urine Culture - ID ollowing - Afebrile 24 hours Acute Renal Insufficiency: worsening - Monitor Daily. - Defer to Nephrology, possible need for replacement if no improvements in 24- 48 hours Metastatic Breast cancer - Bone - ?Progression - Xgeva,Faslodex and Ibrance recently prescribed at progression - XRT to spine recently completed Radiation Burn Posterior thorax: resolved. - Silvadene Neoplastic Related Pain: - Continue current pain regimen - Add bowel protocol. PLan: Defer to ID and Nephrology for acute situation
[2019-05-04] MEDS: methylPREDNISolone SOD SUCCI 40 MG/ML 1 ML VIAL IV SCH ×2 (15:38→23:29)
[2019-05-04] MEDS: CLOTRIMAZOLE TROCHE 10 MG TROCHE MUCOUS MEM SCH ×3 (16:41→23:29)
[2019-05-04 17:11] LABS: Glucose,Whole Blood 165 mg/dL (75-99)
[2019-05-04 19:45] LABS: Glucose,Whole Blood 253 mg/dL (75-99)
[2019-05-04] MEDS: MONTELUKAST 10 MG TAB PO SCH (21:22)
[2019-05-04] MEDS: ATORVASTATIN 40 MG TAB PO SCH (21:23)
[2019-05-04] MEDS: SENNOSIDES-DOCUSATE SODIUM 1 EACH TAB PO SCH (21:23)
[2019-05-04] MEDS: HYDROcodone/APAP 5-325MG 1 EACH TAB PO PRN (21:26)
--- NOTE | 2019-05-04 21:27 | P.PN ---
Subjective Progress Note Date: 05/04/19 Pleasant 63-year-old female is a complex past medical history regarding her breast carcinoma. 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 Because of increasing pain and neurological difficulties she was evaluated was treated with radiation therapy to the cervical and thoracic spine . She Developed extensive radiation dermatitis and esophagitis. She was hospitalized [facility] and with treatment of the skin and esophagitis she had marked improvement. She has had a subsequent hospitalization at the outside facility where she had a urinary tract infection. She now presents to Hospital feeling poorly with evidence significant weakness with fever 102, chills and evidence of new abnormality. Chest x-ray acute renal failure and generalized malaise. With fluid resuscitation antibiotic therapy she started to feel somewhat better. Cultures are in process with concerns to urinary tract infection as a source of the current bout of sepsis. 05/02/2017 the patient's renal failure continues but her fevers improved. With the elevated vancomycin level this is put on hold. 05/04/2019 patient continues to have increasing creatinine, and feels poorly with her acute renal failure. She is having some shakiness to her arms and legs, weakness and poor appetite. However is not having nausea or emesis. All the food does taste poorly. She's had some increased difficulties with her oral cavity possibly thrush. Objective - Vital Signs Vital signs: Vital Signs Temp 97.4 F L 05/04/19 21:00 Pulse 90 05/04/19 21:00 Resp 18 05/04/19 21:00 BP 139/66 05/04/19 21:00 Pulse Ox 93 L 05/04/19 21:00 Intake & Output 05/04/19 05/04/19 05/05/19 06:59 18:59 06:59 Intake Total 1660 Output Total 725 600 Balance 935 -600 Intake: Oral 1660 Output: Urine 725 600 Other: Voiding Method Bedside Commode Bedside Commode # Voids 1 0 - Exam 63-year-old woman presents to Hospital feeling poorly with fever and chills HEENT: Anicteric conjunctiva are pink and moist nasal mucosa grossly intact without significant lesions, and the very posterior aspect of the pharynx is now some mild white coating consistent with early thrush. Neck: The neck is supple without significant lymphadenopathy or thyromegaly. Lungs: Good bilateral air entry without significant crackles or wheezing. There is no significant bronchial sounds. There is no egophony or dullness. Heart: Regular rate and rhythm with an audible S1-S2, no S3 no S4. There is no significant murmur click or rub, PMI was nondisplaced. Abdomen: Positive bowel sounds soft minimal tenderness is noted in the right upper quadrant without palpable masses or organomegaly. There was no guarding or rebound. Extremities: The upper extremities have excellent pulses they are symmetric, no significant petechiae or telangiectasia. No splinter hemorrhages were noted. The lower extremities are free from significant edema. The peripheral pulses were 2+ and symmetric. Neuro: Awake alert oriented to person place and time. There are no acute new gross focal sensory motor deficits. Skin reveals evidence of the resolution of the radiation dermatitis does have some residual color change but there is nothing ulcer. She is not having any further difficulties with the esophagitis either although does have a bit of dry mouth and throat. - Labs CBC & Chem 7: 05/04/19 08:08 05/04/19 08:08 Labs: Abnormal Lab Results - Last 24 Hours (Table) 05/04/19 05/04/19 05/04/19 Range/Units 07:31 08:08 08:08 WBC 1.9 L (3.8-10.6) k/uL RBC 2.78 L (3.80-5.40) m/uL Hgb 9.1 L (11.4-16.0) gm/dL Hct 28.8 L (34.0-46.0) % MCV 103.6 H (80.0-100.0) fL RDW 17.0 H (11.5-15.5) % Plt Count 75 L (150-450) k/uL Lymphocytes # 0.1 L (1.0-4.8) k/uL Sodium 133 L (137-145) mmol/L Carbon Dioxide 15 L (22-30) mmol/L BUN 55 H (7-17) mg/dL Creatinine 4.83 H (0.52-1.04) mg/dL Glucose 232 H (74-99) mg/dL POC Glucose (mg/dL) 250 H (75-99) mg/dL Calcium 7.1 L (8.4-10.2) mg/dL 05/04/19 05/04/19 05/04/19 Range/Units 11:07 17:10 19:44 WBC (3.8-10.6) k/uL RBC (3.80-5.40) m/uL Hgb (11.4-16.0) gm/dL Hct (34.0-46.0) % MCV (80.0-100.0) fL RDW (11.5-15.5) % Plt Count (150-450) k/uL Lymphocytes # (1.0-4.8) k/uL Sodium (137-145) mmol/L Carbon Dioxide (22-30) mmol/L BUN (7-17) mg/dL Creatinine (0.52-1.04) mg/dL Glucose (74-99) mg/dL POC Glucose (mg/dL) 196 H 165 H 253 H (75-99) mg/dL Calcium (8.4-10.2) mg/dL Microbiology - Last 24 Hours (Table) 05/02/19 09:21 Gram Stain - Final Sputum Sputum Culture - Final Mary albicans 04/30/19 11:43 Blood Culture Gram Stain - Final Blood Blood Culture - Final Staphylococcus lugdunenisis Laboratory Results WBC 1.9 k/uL (3.8-10.6) L 05/04/19 08:08 RBC 2.78 m/uL (3.80-5.40) L 05/04/19 08:08 Hgb 9.1 gm/dL (11.4-16.0) L 05/04/19 08:08 Hct 28.8 % (34.0-46.0) L 05/04/19 08:08 MCV 103.6 fL (80.0-100.0) H 05/04/19 08:08 MCH 32.8 pg (25.0-35.0) 05/04/19 08:08 MCHC 31.6 g/dL (31.0-37.0) 05/04/19 08:08 RDW 17.0 % (11.5-15.5) H 05/04/19 08:08 Plt Count 75 k/uL (150-450) L 05/04/19 08:08 Neutrophils % 88 % 05/04/19 08:08 Neutrophils % (Manual) 86 % 05/02/19 06:57 Band Neutrophils % 2 % 05/02/19 06:57 Lymphocytes % 7 % 05/04/19 08:08 Lymphocytes % (Manual) 6 % 05/02/19 06:57 Monocytes % 2 % 05/04/19 08:08 Monocytes % (Manual) 4 % 05/02/19 06:57 Eosinophils % 2 % 05/04/19 08:08 Eosinophils % (Manual) 2 % 05/02/19 06:57 Basophils % 0 % 05/04/19 08:08 Neutrophils # 1.7 k/uL (1.3-7.7) 05/04/19 08:08 Neutrophils # (Manual) 2.00 k/uL (1.3-7.7) 05/02/19 06:57 Lymphocytes # 0.1 k/uL (1.0-4.8) L 05/04/19 08:08 Lymphocytes # (Manual) 0.14 k/uL (1.0-4.8) L 05/02/19 06:57 Monocytes # 0.0 k/uL (0-1.0) 05/04/19 08:08 Monocytes # (Manual) 0.09 k/uL (0-1.0) 05/02/19 06:57 Eosinophils # 0.0 k/uL (0-0.7) 05/04/19 08:08 Eosinophils # (Manual) 0.05 k/uL (0-0.7) 05/02/19 06:57 Basophils # 0.0 k/uL (0-0.2) 05/04/19 08:08 Nucleated RBCs 0 /100 WBC (0-0) 05/02/19 06:57 Manual Slide Review Performed 05/03/19 08:24 Large Platelets Present 04/30/19 11:43 Hypochromasia Slight 05/04/19 08:08 Poikilocytosis (manual Present 05/02/19 06:57 Anisocytosis Slight 05/04/19 08:08 Anisocytosis (manual) Present 05/01/19 07:16 Macrocytosis Moderate 05/04/19 08:08 Rouleaux Present 05/02/19 06:57 PT 10.7 sec (9.0-12.0) 05/01/19 12:37 INR 1.0 (<1.2) 05/01/19 12:37 APTT 26.3 sec (22.0-30.0) 05/01/19 12:37 Sodium 133 mmol/L (137-145) L 05/04/19 08:08 Potassium 4.4 mmol/L (3.5-5.1) 05/04/19 08:08 Chloride 102 mmol/L (98-107) 05/04/19 08:08 Carbon Dioxide 15 mmol/L (22-30) L 05/04/19 08:08 Anion Gap 16 mmol/L 05/04/19 08:08 BUN 55 mg/dL (7-17) H 05/04/19 08:08 Creatinine 4.83 mg/dL (0.52-1.04) H 05/04/19 08:08 Est GFR (CKD-EPI)AfAm 10 (>60 ml/min/1.73 sqM) 05/04/19 08:08 Est GFR (CKD-EPI)NonAf 9 (>60 ml/min/1.73 sqM) 05/04/19 08:08 Glucose 232 mg/dL (74-99) H 05/04/19 08:08 POC Glucose (mg/dL) 253 mg/dL (75-99) H 05/04/19 19:44 POC Glu Repairer General ID Geeta Fallon 05/04/19 19:44 Plasma Lactic Acid Jon 1.5 mmol/L (0.7-2.0) 04/30/19 11:43 Calcium 7.1 mg/dL (8.4-10.2) L 05/04/19 08:08 Phosphorus 2.6 mg/dL (2.5-4.5) 04/30/19 11:43 Magnesium 2.1 mg/dL (1.6-2.3) 05/04/19 08:08 Total Bilirubin 0.9 mg/dL (0.2-1.3) 05/01/19 07:16 AST 90 U/L (14-36) H 05/01/19 07:16 ALT 48 U/L (9-52) 05/01/19 07:16 Alkaline Phosphatase 70 U/L (38-126) 05/01/19 07:16 Total Protein 5.7 g/dL (6.3-8.2) L 05/01/19 07:16 Albumin 2.6 g/dL (3.5-5.0) L 05/01/19 07:16 Urine Color Dark Brown 04/30/19 13:00 Urine Appearance Turbid (Clear) H 04/30/19 13:00 Urine pH 5.0 (5.0-8.0) 04/30/19 13:00 Ur Specific [place] 1.016 (1.001-1.035) 04/30/19 13:00 Urine Protein 2+ (Negative) H 04/30/19 13:00 Urine Glucose (UA) Negative (Negative) 04/30/19 13:00 Urine Ketones Negative (Negative) 04/30/19 13:00 Urine Blood Large (Negative) H 04/30/19 13:00 Urine Nitrite Negative (Negative) 04/30/19 13:00 Urine Bilirubin Negative (Negative) 04/30/19 13:00 Urine Urobilinogen 4.0 mg/dL (<2.0) 04/30/19 13:00 Ur Leukocyte Esterase Large (Negative) H 04/30/19 13:00 Urine RBC >182 /hpf (0-5) H 04/30/19 13:00 Urine WBC 40 /hpf (0-5) H 04/30/19 13:00 Urine WBC Clumps Occasional /hpf (None) H 04/30/19 13:00 Ur Squamous Epith Cells 13 /hpf (0-4) H 04/30/19 13:00 Urine Bacteria Moderate /hpf (None) H 04/30/19 13:00 Urine Mucus Occasional /hpf (None) H 04/30/19 13:00 Random Vancomycin 23.2 ug/mL 05/03/19 23:18 Influenza Type A RNA Not Detected (Not Detectd) 04/30/19 13:04 Influenza Type B (PCR) Not Detected (Not Detectd) 04/30/19 13:04 Microbiology 05/02/19 09:21 Sputum Gram Stain - Final 05/02/19 09:21 Sputum Sputum Culture - Final Mary albicans 04/30/19 11:43 Blood Blood Culture Gram Stain - Final 04/30/19 11:43 Blood Blood Culture - Final Staphylococcus lugdunenisis 04/30/19 13:00 Urine,Voided Urine Culture - Final Enterococcus faecalis 04/30/19 11:43 Blood Blood Culture - Final Assessment and Plan (1) Acute renal failure Current Visit: Yes Status: Acute Code(s): N17.9 - ACUTE KIDNEY FAILURE, UNSPECIFIED SNOMED Code(s): 59565657 (2) Gram-positive cocci bacteremia Current Visit: No Status: Acute Code(s): R78.81 - BACTEREMIA SNOMED Code( s): 515693002976 (3) Metastatic breast carcinoma Current Visit: Yes Status: Chronic Priority: Medium Code(s): C50.919 - MALIGNANT NEOPLASM OF UNSP SITE OF UNSPECIFIED FEMALE BREAST SNOMED Code(s): 095848142 (4) Urinary tract infection Narrative/Plan: 63-year-old woman who has a history of the metastaticBreast carcinoma with evidence of significant metastasis to the skeleton as well as liver metastasis presents to Hospital feeling poorly with another bout of fever chills malaise occurring after her recent treatment with chemotherapy. Been seen by her oncology team and chemotherapy is now on hold. He does not have severe neutropenia and is being monitored. There is evidence of urinary tract infection is likely etiology her current sepsis and laboratories: Positive blood culture with gram-positive cocci. She's had several prior blood cultures with gram-positive cocci that has been staphylococcus ludegensis, which is a coagulase-negative staph and since the patient does not have an indwelling catheter has not been thought to be a significant pathogen. Somewhat concerning if it continues to be found. Urine culture is showing evidence of gram-positive cocci and constantly Acromycin therapy is being utilized as well as Rocephin until there is further data. She has developed acute renal failure and consequently very close monitoring with vancomycin therapy is indicated we'll try to limit the dosing as much as possible. Nephrology will be seeing her for her acute increase of her creatinine to 3.46. 2-D echocardiogram has been requested and she shall be monitored. 05/02/2018 dear culture now shows evidence of enterococcus blood cultures are growing coagulase negative staph. Antibiotic therapy will now be D escalated. The Rocephin and vancomycin are discontinued. Vancomycin level currently is elevated. Once his level falls to less than 15 will then be able to initiate alternative antibiotic therapy for the treatment of the enterococcus. If blood cultures remain negative would not need further IV antibiotic therapy. 05/04/2019 the patient continues to feel very poorly with evidence of her acute renal failure the toxicity associated with that. The vancomycin level has dropped to 23 and likely will be subtherapeutic and the next day or so. At that time with initiate by therapy to complete the treatment of her enterococcal infection. Nephrology is following and continue to contemplate the need for renal replacement therapy. The patient's blood cultures are being repeated to ensure that the foot was negative staph is not persistent, is noted he has been seen on several occasions in the past, but she does not have any indwelling catheters. Current Visit: Yes Status: Acute Code(s): N39.0 - URINARY TRACT INFECTION, SITE NOT SPECIFIED SNOMED Code(s): 33468721
--- NOTE | 2019-05-04 23:17 | PN ---
PROGRESS NOTE . DATE OF SERVICE: 05/04/2019. This 63-year-old woman who was admitted with acute right lower lobe pneumonia and possible sepsis, neutropenic sepsis is being closely monitored. The patient also had significant renal failure and some fluid overload also. The patient continues to have pancytopenia. The cultures are showing urine culture showed vancomycin sensitive Enterococcus faecalis and blood culture showed Staph lugdunensis and sputum culture showed Mary. The patient being closely monitored at this time. PAST MEDICAL HISTORY: Reviewed. REVIEW OF SYSTEMS: Cardiovascular system: No angina or palpitations. RESPIRATORY: As mentioned earlier. GI: As mentioned earlier. : No dysuria. CENTRAL NERVOUS SYSTEM: No focal deficits. CURRENT MEDICATIONS: Reviewed and include: 1. Wixom 5 mg p.r.n. 2. DuoNeb q.i.d. and p.r.n. 3. Xanax 0.5 t.i.d. 4. Aspirin 160 mg daily. 5. Lipitor 40 mg daily. 6. Pulmicort 1 mg b.i.d. 7. Mycelex. 8. Cardizem. 9. Flonase. 10.Neurontin. 11.Solu-Medrol 40 IV q.8h. 12.Singulair. 13.Protonix. 14.MiraLAX. 15.Senokot S. 16.Sodium bicarb 1300 mg p.o. b.i.d. 17.Carafate 1 g is a.c. q.h.s. PHYSICAL EXAM: Patient is alert, oriented x3. Pulse 94, blood pressure 122/70, respirations 16, temperature 97.4, pulse ox 96% on room air. HEENT: Conjunctivae normal. Oral mucosa moist. NECK is no jugular venous distention. No carotid bruit. No lymph node enlargement. Cardiovascular: S1, S2 muffled. RESPIRATORY: Breath sounds diminished in the bases. Bilateral scattered rhonchi and crackles. Expiratory wheezing also. ABDOMEN: Soft, nontender. LEGS: Bilateral leg edema. CENTRAL NERVOUS SYSTEM: Diffusely weak. LAB STUDIES: WBC 1.9, hemoglobin 9.1. Sodium 133. Potassium 4.4. The creatinine is 4.83. ASSESSMENT: 1. Acute right lower lobe pneumonia with possible sepsis and neutropenic sepsis present on admission. 2. Acute renal failure, acute tubular necrosis multifactorial with prerenal factors which is nonoliguric which was worsening. 3. Vancomycin sensitive Enterococcus faecalis from the urine culture. 4. Mary albicans in the sputum. 5. Pancytopenia secondary to chemotherapy. 6. Carcinoma of the breast with metastases to spine and liver. 7. Hyponatremia. 8. Hypocalcemia. 9. Increased AST. 10.Obesity with body mass index of 9.8. 11.Hypertension. 12.Cerebrovascular accident, left-sided. 13.History of breast surgery. 14.Remote history of nicotine dependence. RECOMMENDATIONS AND DISCUSSION: Recommend to continue current medications, symptomatic treatment. We will monitor the patient closely. Continue with antibiotics and continue to monitor. Guarded prognosis because of multiple complex medical issues. Further recommendations to follow. MMODL / IJN: [id number] /
[2019-05-04] MEDS ORDERED: FUROSEMIDE 10 MG/ML 10 ML VIAL IV STA (23:18)
--- NOTE | 2019-05-04 23:36 | XR ---
EXAM: XR Chest, 1 View CLINICAL HISTORY: ITS.REASON XR Reason: dyspnea TECHNIQUE: Frontal view of the chest. COMPARISON: 05/03/2019. 05/01/2019. FINDINGS: Lungs: Patchy airspace disease is now noted in the right mid and lower lung zones having progressed since the previous study possibly on the basis of worsening pneumonia. Clinical correlation is necessary. Pleural space: Unremarkable. No pneumothorax. Heart: Cardiomegaly similar to the previous study. Mediastinum: Unremarkable. Bones/joints: Osteopenia. IMPRESSION: Cardiomegaly. Patchy airspace disease is not noted in the right mid to lower lung zones having progressed since the previous study possibly on the basis of worsening pneumonia. Other etiologies cannot be excluded lower lesions arise. CT imaging of the chest may provide additional information and should be considered for follow-up.
[2019-05-05 00:26] LABS: Glucose,Whole Blood 217 mg/dL (75-99)
[2019-05-05 00:46] LABS: Anisocytosis Slight; Basophils % (A) 0 %; Eosinophils % (A) 0 %; Lymphocytes # (A) 0.1 k/uL (1.0-4.8); Lymphocytes % (A) 2 %; MCH 33.5 pg (25.0-35.0); MCHC 33.2 g/dL (31.0-37.0); MCV 100.7 fL (80.0-100.0); Macrocytosis Slight; Mean Platelet Volume 9.3; Monocytes # (A) 0.2 k/uL (0-1.0); Monocytes % (A) 3 %; Neutrophils % (A) 93 %; RBC 2.68 m/uL (3.80-5.40); RDW 16.4 % (11.5-15.5); WBC 6.4 k/uL (3.8-10.6)
[2019-05-05 00:48] LABS: Platelet Count 83 k/uL (150-450)
[2019-05-05] MEDS: CEFEPIME 2 GM in SODIUM CHLORIDE 0.9% 100 ML IVPB SCH ×2 (00:51→11:56)
[2019-05-05 01:10] LABS: Albumin 3.2 g/dL (3.5-5.0); Calcium 7.3 mg/dL (8.4-10.2); Magnesium 2.1 mg/dL (1.6-2.3); Phosphorus 4.6 mg/dL (2.5-4.5); Potassium 4.5 mmol/L (3.5-5.1); Total Bilirubin 0.6 mg/dL (0.2-1.3); Total Protein 6.7 g/dL (6.3-8.2)
[2019-05-05] MEDS ORDERED: NALOXONE 0.4 MG/ML 1 ML VIAL IV PRN (01:12)
[2019-05-05 04:33] LABS: Anisocytosis Slight; Basophils % (A) 0 %; Eosinophils # (A) 0.1 k/uL (0-0.7); Eosinophils % (A) 2 %; HCT 23.4 % (34.0-46.0); HGB 7.8 gm/dL (11.4-16.0); Lymphocytes # (A) 0.1 k/uL (1.0-4.8); Lymphocytes % (A) 3 %; MCH 33.7 pg (25.0-35.0); MCHC 33.2 g/dL (31.0-37.0); MCV 101.5 fL (80.0-100.0); Macrocytosis Slight; Mean Platelet Volume 10.3; Monocytes # (A) 0.1 k/uL (0-1.0); Monocytes % (A) 4 %; Neutrophils # (A) 2.8 k/uL (1.3-7.7); Neutrophils % (A) 90 %; RDW 17.8 % (11.5-15.5); WBC 3.1 k/uL (3.8-10.6)
[2019-05-05 04:36] LABS: Platelet Count 67 k/uL (150-450)
[2019-05-05] MEDS: HYDROcodone/APAP 5-325MG 1 EACH TAB PO PRN (04:42)
[2019-05-05 04:45] LABS: Calcium 7.1 mg/dL (8.4-10.2); Magnesium 2.2 mg/dL (1.6-2.3); Potassium 4.4 mmol/L (3.5-5.1)
[2019-05-05 04:49] LABS: Vancomycin,Random 17.6 ug/mL
[2019-05-05] MEDS ORDERED: FUROSEMIDE 10 MG/ML 10 ML VIAL IV SCH (06:00)
[2019-05-05] MEDS: CLOTRIMAZOLE TROCHE 10 MG TROCHE MUCOUS MEM SCH ×5 (06:29→23:51)
[2019-05-05] MEDS: INSULIN ASPART (NovoLOG) 100 UNIT/ML VIAL SQ SCH ×4 (06:57→20:56)
[2019-05-05] MEDS: SUCRALFATE 1 GM TAB PO SCH ×4 (06:58→21:00)
[2019-05-05] MEDS: PANTOPRAZOLE 40 MG TABLET PO SCH (06:58)
[2019-05-05 07:06] LABS: Glucose,Whole Blood 200 mg/dL (75-99)
[2019-05-05] MEDS: BUDESONIDE 1 MG/2 ML NEBU INHALATION SCH ×2 (07:55→19:27)
[2019-05-05] MEDS: IPRATROPIUM-ALBUTEROL 3 ML NEB INHALATION SCH ×4 (07:55→19:27)
--- NOTE | 2019-05-05 08:50 | XR ---
EXAMINATION TYPE: XR chest 1V DATE OF EXAM: 05/05/2019 HISTORY: Shortness of breath. COMPARISON: 05/04/2019 TECHNIQUE: Single view of the chest is submitted. FINDINGS: Demonstrated are scattered senescent parenchymal change. Persistent perihilar and right basilar infiltrates are noted. No significant change appreciated. The heart is stable. Hilar and mediastinal structures are within normal limits. Degenerative changes are seen of the dorsal spine. IMPRESSION: 1. Persistent perihilar and right basilar infiltrates are noted. No significant change appreciated.
[2019-05-05] MEDS: FUROSEMIDE 100 MG in SODIUM CHLORIDE 0.9% 90 ML IV SCH ×2 (09:00→17:10)
[2019-05-05] MEDS: ASPIRIN 81 MG PO SCH (09:01)
[2019-05-05] MEDS: SODIUM BICARBONATE TAB 650 MG TAB PO SCH ×2 (09:01→21:00)
[2019-05-05] MEDS: GABAPENTIN 300 MG CAP PO SCH (09:01)
[2019-05-05] MEDS: FLUTICASONE 50MCG/SPRAY NASAL 16GM EA NOSTRIL SCH (09:01)
[2019-05-05] MEDS: DILTIAZEM CD 180 MG CAP.ER.24H PO SCH (09:02)
[2019-05-05 09:52] LABS: Anti-DNA, DS unit <1.0 IU/mL; DNA Double-Stranded NEGATIVE (NEGATIVE)
[2019-05-05 10:51] LABS: Hepatitis A Antibody IgM Non-Reactive (Non-Reactive); Hepatitis B Core IgM Non-Reactive (Non-Reactive); Hepatitis B Surface Antigen Non-Reactive (Non-Reactive); Hepatitis C IgG Antibody Non-Reactive (Non-Reactive)
--- NOTE | 2019-05-05 10:52 | P.PN ---
Subjective Progress Note Date: 05/05/19 Principal diagnosis: Acute sepsis, acute urinary tract infection, gram-positive bacteremia, acute renal failure I was asked to evaluate this patient for a right upper lobe pneumonia. The patient was also be more short of breath yesterday and his chest x-ray was ordered and showed a questionable infiltrate in the right upper lobe and pneumonia was suspected. Note that the patient is morbidly obese with a BMI 59.8. The patient also has history of metastatic breast cancer for which she has undergone radiation therapy to her cervical spine that was complicated by radiation-induced esophagitis and difficulties in swallowing. She has been on systemic treatment with a combination of Ibrance and Fosladex. The patient presented to the hospital because of pancytopenia and infection and this do not to be a UTI with Enterococcus faecalis and blood culture was positive with Staphylococcus Lugdunenisis , which is a coagulase-negative staph and the patient was covered with vancomycin per IDs recommendations. Time of my evaluation, the patient was afebrile. Pulse ox is 96% on room air. No significant tachycardia. No chest pain. No pleurisy. No hemoptysis. She has some chronic swelling in lower extremities bilaterally. Moist recent white count is at 1.9. Platelet count is at 75. The patient also had developed an acute kidney injury. As the patient had a normal kidney function on 04/16/2019. Creatinine is up to 4.8 and this is probably related to an ATN induced by sepsis and further complicated by possible vancomycin-induced toxicity as the patient's serum vancomycin level was quite elevated with a vancomycin level of 37.8 from May 022018 is down trending. No evidence of any hydronephrosis on the renal ultrasound. Patient was reevaluated today on 05/05/2019, patient remains in the intensive care unit, quite short of breath, intermittent episodes of cough and hemoptysis. No fever, worsening chest x-ray with bilateral interstitial edema or infiltrates, poor urine output, hence the patient was switched from IV Lasix to Lasix drip at 10 mg per hour. Worsening renal functioning and acute kidney injury, patient may require hemodialysis. Being followed by nephrology. WBC count today is 3.1 hemoglobin is 7.8 electrolytes are normal however her bicarb is low at 19 BUN is up to 63 creatinine is up to 5.25. Her creatinine on admission 5 days ago was 2.69. Presently on cefepime, off vancomycin. Cultures so far have shown Enterococcus faecalis in the urine, and Staphylococcus lugdunenesis in the blood. Those are being addressed by Dr. Zimmerman on the case, patient is requiring 5 L nasal cannula, her O2 saturation is marginal, however intermittently has been on BiPAP. And that seems to be helping much better. Chest x-ray is worrisome, hence I recommended patient be placed on Lasix drip at 10 mg per hour. And discontinued Lasix at 60 mg IV push every 6 hours. Objective - Vital Signs Vital signs: Vital Signs Temp 97.4 F L 05/05/19 08:00 Pulse 80 05/05/19 10:00 Resp 24 05/05/19 10:00 BP 148/53 05/05/19 10:00 Pulse Ox 95 05/05/19 10:00 Intake & Output 05/04/19 05/05/19 05/05/19 18:59 06:59 18:59 Intake Total 600 40 Output Total 600 1085 265 Balance -600 -485 -225 Weight 154.2 kg 154.2 kg Intake: IV 160 40 0.9 NS 60 40 Cefepime 2 gm In Sodium 100 Chloride 0.9% 100 ml @ 200 mls/hr IVPB Q12H [facility] Rx#:[id number] Oral 440 Output: Urine 600 1085 265 Other: Voiding Method Bedside Commode Indwelling Catheter # Voids 0 - Exam Physical Exam: Revealed an obese 63-year-old female in moderate distress, li genna more comfortable on BiPAP. HEENT: Neck supple, no neck masses, no JVD. No adenopathy. HEENT:[Neck is supple.] [No neck masses.] [No thyromegaly.] [No JVD.] Chest: [Symmetrical chest expansion, diffuse crackles and rhonchi and wheezes bilaterally. No chest wall tenderness. Cardiac Exam: [Normal S1 and S2, no S3 gallop, no murmur.] Abdomen: [Obese, Soft, nontender, no megaly, no rebound, no guarding, normal bowel sounds.] Extremities: [No clubbing, 1+ bipedal edema, no cyanosis.] Good pulses bilaterally. Neurological Exam: Alert and oriented 3. [No focal neurologic deficit.] Lymphatics: No lymphadenopathy. Psychiatric: Normal mood affect and normal mental status examination. Skin: No rashes. - Labs CBC & Chem 7: 05/05/19 04:12 05/05/19 04:12 Labs: Abnormal Lab Results - Last 24 Hours (Table) 05/04/19 05/04/19 05/04/19 Range/Units 11:07 17:10 19:44 WBC (3.8-10.6) k/uL RBC (3.80-5.40) m/uL Hgb (11.4-16.0) gm/dL Hct (34.0-46.0) % MCV (80.0-100.0) fL RDW (11.5-15.5) % Plt Count (150-450) k/uL Lymphocytes # (1.0-4.8) k/uL Sodium (137-145) mmol/L Carbon Dioxide (22-30) mmol/L BUN (7-17) mg/dL Creatinine (0.52-1.04) mg/dL Glucose (74-99) mg/dL POC Glucose (mg/dL) 196 H 165 H 253 H (75-99) mg/dL Calcium (8.4-10.2) mg/dL Phosphorus (2.5-4.5) mg/dL AST (14-36) U/L Albumin (3.5-5.0) g/dL 05/05/19 05/05/19 05/05/19 Range/Units 00:14 00:23 00:23 WBC (3.8-10.6) k/uL RBC 2.68 L (3.80-5.40) m/uL Hgb 9.0 L (11.4-16.0) gm/dL Hct 27.0 L (34.0-46.0) % MCV 100.7 H (80.0-100.0) fL RDW 16.4 H (11.5-15.5) % Plt Count 83 L (150-450) k/uL Lymphocytes # 0.1 L (1.0-4.8) k/uL Sodium 132 L (137-145) mmol/L Carbon Dioxide 15 L (22-30) mmol/L BUN 61 H (7-17) mg/dL Creatinine 5.05 H (0.52-1.04) mg/dL Glucose 183 H (74-99) mg/dL POC Glucose (mg/dL) 217 H (75-99) mg/dL Calcium 7.3 L (8.4-10.2) mg/dL Phosphorus 4.6 H (2.5-4.5) mg/dL AST 64 H (14-36) U/L Albumin 3.2 L (3.5-5.0) g/dL 05/05/19 05/05/19 05/05/19 Range/Units 04:12 04:12 06:54 WBC 3.1 L (3.8-10.6) k/uL RBC 2.30 L (3.80-5.40) m/uL Hgb 7.8 L (11.4-16.0) gm/dL Hct 23.4 L (34.0-46.0) % MCV 101.5 H (80.0-100.0) fL RDW 17.8 H (11.5-15.5) % Plt Count 67 L (150-450) k/uL Lymphocytes # 0.1 L (1.0-4.8) k/uL Sodium 132 L (137-145) mmol/L Carbon Dioxide 19 L (22-30) mmol/L BUN 63 H (7-17) mg/dL Creatinine 5.25 H (0.52-1.04) mg/dL Glucose 184 H (74-99) mg/dL POC Glucose (mg/dL) 200 H (75-99) mg/dL Calcium 7.1 L (8.4-10.2) mg/dL Phosphorus (2.5-4.5) mg/dL AST (14-36) U/L Albumin (3.5-5.0) g/dL Microbiology - Last 24 Hours (Table) 04/30/19 11:43 Blood Culture Gram Stain - Final Blood Blood Culture - Final Staphylococcus lugdunenisis 05/03/19 23:18 Blood Culture - Preliminary Blood No Growth after 24 hours 05/02/19 09:21 Gram Stain - Final Sputum Sputum Culture - Final Mary albicans Assessment and Plan Assessment: Impression: 1 shortness of breath with acute hypoxic respiratory failure secondary to sepsis, urinary tract infection, anemia, and suspect pulmonary edema which is possibly cardiogenic or noncardiogenic in nature. She does have elevated BNP level, echocardiogram is pending, and her poor urine output in spite of Lasix will definitely be a risk factor for fluid overload and pulmonary edema. Patient may actually require hemodialysis. Possibility of noncardiogenic pulmonary edema secondary to sepsis is also being considered. 2 acute kidney injury secondary to ATN, possible vancomycin nephrotoxicity. 3 gram-positive bacteremia being addressed by infectious disease on the case. 4 Enterococcus faecalis urinary tract infection, being addressed by infectious disease. 5 metastatic breast cancer patient has been on chemotherapy until recently. 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 8 chemotherapy induced pancytopenia 9 metabolic acidosis secondary to sepsis and acute kidney injury. Recommendation: Reviewed and discussed with the patient her chest x-ray, her multiple medical problems as listed including metastatic breast cancer, and renal failure, discussed the CODE STATUS with the patient, presently the patient is thinking about it, but for the time being she is still full code. Went ahead and recommended Lasix drip, we continue antibiotics as ordered by infectious disease, will place the patient on BiPAP, and if the patient deteriorates, she may require intubation and mechanical ventilation. Patient was made aware of her poor clinical condition, and she is going to discuss CODE STATUS with the when he comes in to visit this morning. Again prognosis is extremely p oor and guarded. Critical care time is 40 minutes. Time with Patient: Greater than 30
--- NOTE | 2019-05-05 11:01 | ECHOF ---
Referral Reason:chf MEASUREMENTS -------- HEIGHT: 152.4 cm WEIGHT: 153.8 kg BP: 148/53 RVIDd: 3.3 cm (< 3.3) IVSd: 1.4 cm (0.6 - 1.1) LVIDd: 5.1 cm (3.9 - 5.3) LVPWd: 1.2 cm (0.6 - 1.1) IVSs: 1.8 cm LVIDs: 3.1 cm LVPWs: 1.6 cm LA Diam: 4.5 cm (2.7 - 3.8) LAESV Index (A-L): 26.47 ml/m Ao Diam: 3.2 cm (2.0 - 3.7) AV Cusp: 1.4 cm (1.5 - 2.6) MV EXCURSION: 12.538 mm (> 18.000) MV EF SLOPE: 40 mm/s (70 - 150) EPSS: 1.3 cm AV maxP.96 mmHg AV meanP.82 mmHg AR PHT: 278 ms RAP: 5.00 mmHg RVSP: 73.11 mmHg FINDINGS -------- Atrial fibrillation. This was a technically adequate study. The left ventricular size is normal. There is moderate concentric left ventricular hypertrophy. O verall left ventricular systolic function is mildly impaired with, an EF between 45 - 50 %. The right ventricle is mildly enlarged. Normal LA size by volume 22+/-6 ml/m2. The right atrium is normal in size. Interatrial and interventricular septum intact. There is moderate aortic valve sclerosis. There is wuhvstvb-wk-lproae aortic regurgitation. There is severe aortic stenosis present. Peak/mean gradient across the Aortic Valve is 76.96mmHg / 43.82 mmHg. The aortic valve severity may be overestimated due to aortic regurgitation. Mild mitral annular calcification present. Mild mitral regurgitation is present. Zpgh-od-pvmyxmbm tricuspid regurgitation present. There is severe pulmonary hypertension. The rig ht ventricular systolic pressure, as measured by Doppler, is 73.11mmHg. The pulmonic valve was not well visualized. The aortic root size is normal. IVC Not well visulized. There is no pericardial effusion. CONCLUSIONS -------- 1. Atrial fibrillation. 2. This was a technically adequate study. 3. The left ventricular size is normal. 4. There is moderate concentric left ventricular hypertrophy. 5. Overall left ventricular systolic function is mildly impaired with, an EF between 45 - 50 %. 6. The right ventricle is mildly enlarged. 7. Normal LA size by volume 22+/-6 ml/m2. 8. The right atrium is normal in size. 9. Interatrial and interventricular septum intact. 10. There is moderate aortic valve sclerosis. 11. There is yozlkxha-gj-cdwkcm aortic regurgitation. 12. There is severe aortic stenosis present. 13. Peak/mean gradient across the Aortic Valve is 76.96mmHg / 43.82mmHg. 14. The aortic valve severity may be overestimated due to aortic regurgitation. 15. Mild mitral annular calcification present. 16. Mild mitral regurgitation is present. 17. Fifv-ud-hzadmlrf tricuspid regurgitation present. 18. There is severe pulmonary hypertension. 19. The right ventricular systolic pressure, as measured by Doppler, is 73.11mmHg. 20. The pulmonic valve was not well visualized. 21. The aortic root size is normal. 22. IVC Not well visulized. 23. There is no pericardial effusion. STEVEDORE DOCK: Angelica Hendricks RDCS
[2019-05-05 11:40] LABS: Glucose,Whole Blood 166 mg/dL (75-99)
[2019-05-05] MEDS: methylPREDNISolone SOD SUCCI 40 MG/ML 1 ML VIAL IV SCH ×3 (11:56→23:52)
[2019-05-05 14:30] LABS: C-ANCA <1:20 Titer (<1:20)
--- NOTE | 2019-05-05 14:37 | P.PN ---
Subjective Progress Note Date: 05/05/19 Principal diagnosis: Fever, congestive heart failure, acute renal failure In follow-up today patient is on BiPAP, she is able to carry on a conversation about one sentence before becoming short of breath. In general she has no complaints, no recent fever, nausea, vomiting, she has been able to do her incentive spirometry area couple of times, no abdominal pain or cramping, bl oating, her legs are swollen. Objective - Vital Signs Vital signs: Vital Signs Temp 97.4 F L 05/05/19 12:00 Pulse 85 05/05/19 12:00 Resp 29 H 05/05/19 12:00 BP 150/68 05/05/19 12:00 Pulse Ox 95 05/05/19 12:00 Intake & Output 05/04/19 05/05/19 05/05/19 18:59 06:59 18:59 Intake Total 600 160 Output Total 600 1085 360 Balance -600 -485 -200 Weight 154.2 kg 154.2 kg Intake: IV 160 160 0.9 NS 60 60 Cefepime 2 gm In Sodium 100 100 Chloride 0.9% 100 ml @ 200 mls/hr IVPB Q12H [facility] Rx#:[id number] Oral 440 Output: Urine 600 1085 360 Other: Voiding Method Bedside Commode Indwelling Catheter Indwelling Catheter # Voids 0 - Constitutional General appearance: Present: cooperative, mild distress, morbidly obese - EENT Eyes: Present: anicteric sclerae, EOMI ENT: Present: hearing grossly normal - Respiratory Respiratory: right: rhonchi, left: diminished - Cardiovascular Rhythm: irregularly irregular Heart sounds: normal: S1, S2 Abnormal Heart Sounds: Absent: systolic murmur, diastolic murmur, rub, S3 Gallop, S4 Gallop, click, other - Peripheral edema leg Peripheral Edema: bilateral: 2+, Pitting - Gastrointestinal General gastrointestinal: Present: normal bowel sounds, soft. Absent: absent bowel sounds, decreased bowel sounds, distended, hepatomegaly, hyperactive bowel sounds, organomegaly, rigid, scaphoid, splenomegaly, tenderness, umbilical hernia, ventral hernia - Neurologic Neurologic: Present: CNII-XII intact - Musculoskeletal Musculoskeletal: Present: generalized weakness - Psychiatric Psychiatric: Present: A&O x's 3, appropriate affect, intact judgment & insight - Labs CBC & Chem 7: 05/05/19 04:12 05/05/19 04:12 Labs: Abnormal Lab Results - Last 24 Hours (Table) 05/04/19 05/04/19 05/05/19 Range/Units 17:10 19:44 00:14 WBC (3.8-10.6) k/uL RBC (3.80-5.40) m/uL Hgb (11.4-16.0) gm/dL Hct (34.0-46.0) % MCV (80.0-100.0) fL RDW (11.5-15.5) % Plt Count (150-450) k/uL Lymphocytes # (1.0-4.8) k/uL Sodium (137-145) mmol/L Carbon Dioxide (22-30) mmol/L BUN (7-17) mg/dL Creatinine (0.52-1.04) mg/dL Glucose (74-99) mg/dL POC Glucose (mg/dL) 165 H 253 H 217 H (75-99) mg/dL Calcium (8.4-10.2) mg/dL Phosphorus (2.5-4.5) mg/dL AST (14-36) U/L Albumin (3.5-5.0) g/dL 05/05/19 05/05/19 05/05/19 Range/Units 00:23 00:23 04:12 WBC 3.1 L (3.8-10.6) k/uL RBC 2.68 L 2.30 L (3.80-5.40) m/uL Hgb 9.0 L 7.8 L (11.4-16.0) gm/dL Hct 27.0 L 23.4 L (34.0-46.0) % MCV 100.7 H 101.5 H (80.0-100.0) fL RDW 16.4 H 17.8 H (11.5-15.5) % Plt Count 83 L 67 L (150-450) k/uL Lymphocytes # 0.1 L 0.1 L (1.0-4.8) k/uL Sodium 132 L (137-145) mmol/L Carbon Dioxide 15 L (22-30) mmol/L BUN 61 H (7-17) mg/dL Creatinine 5.05 H (0.52-1.04) mg/dL Glucose 183 H (74-99) mg/dL POC Glucose (mg/dL) (75-99) mg/dL Calcium 7.3 L (8.4-10.2) mg/dL Phosphorus 4.6 H (2.5-4.5) mg/dL AST 64 H (14-36) U/L Albumin 3.2 L (3.5-5.0) g/dL 05/05/19 05/05/19 05/05/19 Range/Units 04:12 06:54 11:28 WBC (3.8-10.6) k/uL RBC (3.80-5.40) m/uL Hgb (11.4-16.0) gm/dL Hct (34.0-46.0) % MCV (80.0-100.0) fL RDW (11.5-15.5) % Plt Count (150-450) k/uL Lymphocytes # (1.0-4.8) k/uL Sodium 132 L (137-145) mmol/L Carbon Dioxide 19 L (22-30) mmol/L BUN 63 H (7-17) mg/dL Creatinine 5.25 H (0.52-1.04) mg/dL Glucose 184 H (74-99) mg/dL POC Glucose (mg/dL) 200 H 166 H (75-99) mg/dL Calcium 7.1 L (8.4-10.2) mg/dL Phosphorus (2.5-4.5) mg/dL AST (14-36) U/L Albumin (3.5-5.0) g/dL Microbiology - Last 24 Hours (Table) 04/30/19 11:43 Blood Culture Gram Stain - Final Blood Blood Culture - Final Staphylococcus lugdunenisis 05/03/19 23:18 Blood Culture - Preliminary Blood No Growth after 24 hours 05/02/19 09:21 Gram Stain - Final Sputum Sputum Culture - Final Mary albicans - Imaging and Cardiology Echo report reviewed Assessment and Plan (1) Acute respiratory failure Narrative/Plan: Patient is on BiPAP in the intensive care unit being monitored closely by the Critical Care team. After discussion with the patient, family as well as nursing and there has been discussion of possible intubation. The family is discussing CODE STATUS and how they would like to proceed if pt progresses to respiratory failure requiring mechanical ventilation Current Visit: Yes Status: Acute Priority: High Code(s): J96.00 - ACUTE RESPIRATORY FAILURE, UNSP W HYPOXIA OR HYPERCAPNIA SNOMED Code(s): 92828044 (2) Fever Narrative/Plan: Patient has positive blood cultures, positive urine culture as well as a positive sputum culture. From discussion with the Physicians all of these positive cultures can be from contamination. Infectious Diseases is following and treating pt. Medications include antibiotics and antifungals. Will defer management of the same to appropriate specialty. Current Visit: Yes Status: Acute Priority: High Code(s): R50.9 - FEVER, UNSPECIFIED SNOMED Code(s): 081679672 (3) Metastatic breast carcinoma Narrative/Plan: Patient recently had change in her hormonal therapy from oral to IM. She received loading dose of Faslodex 03/14 through 04/16. Her last dose of Xgeva was on April 16. Patient will be due for xgeva and Faslodex in about 2 weeks. Patient's oral Ibrance is on hold. This is a 21 day regimen every 28 days. Current Visit: Yes Status: Chronic Priority: Medium Code(s): C50.919 - MALIGNANT NEOPLASM OF UNSP SITE OF UNSPECIFIED FEMALE BREAST SNOMED Code(s): 225941391 (4) Acute renal failure Narrative/Plan: BUN and creatinine are slightly worse today. From review of the notes it appears that there is suspicion that chronic antibiotic use may be the culprit for the renal failure. Nephrology following and managing. Current Visit: Yes Status: Acute Priority: High Code(s): N17.9 - ACUTE KIDNEY FAILURE, UNSPECIFIED SNOMED Code(s): 51583237
--- NOTE | 2019-05-05 16:13 | PN ---
PROGRESS NOTE DATE OF SERVICE: 05/05/2019. This 63-year-old woman who was admitted with acute right lower lobe pneumonia with possible sepsis and neutropenic sepsis also had renal failure. The patient also developed some amount of fluid overload. The patient has significant shortness of breath and some hypoxia. The patient was transferred to ER and a Lasix drip was initiated. Pulmonary Dr. Delacruz and multiple consultants are following the patient closely at this time. Past medical history reviewed. REVIEW OF SYSTEMS: CARDIOVASCULAR SYSTEM: As mentioned earlier. RESPIRATORY SYSTEM: As mentioned earlier. GI: No nausea, vomiting. : No dysuria or retention. NERVOUS SYSTEM: No numbness, weakness. CURRENT MEDICATIONS: Reviewed. They include: 1. Sutherland 5 mg q.4 p.r.n. 2. DuoNeb q.i.d. and p.r.n. 3. Xanax 0.25 t.i.d. 4. Aspirin 162 mg p.o. daily. 5. Lipitor 40 mg at bedtime. 6. Pulmicort 1 mg b.i.d. 7. Cefepime 2 grams IV b.i.d. 8. Mycelex. 9. Cardizem CD 180 mg p.o. daily. 10.Flonase. 11.Neurontin. 12.NovoLog. 13.Solu-Medrol 40 IV q.6. 14.Narcan. 15.Protonix. 16.MiraLAX. 17.Senokot-S. 18.Sodium bicarb. 19.Carafate. PHYSICAL EXAMINATION: Patient is alert, oriented x3. Patient is on BiPAP. Pulse 91, blood pressure 137/70, respiration 27, temperature 97.4, pulse ox 98% on BiPAP. HEENT: Conjunctivae normal. NECK: No jugular venous distention. CARDIOVASCULAR SYSTEM: S1, S2 muffled. RESPIRATORY SYSTEM: Breath sounds diminished at the bases. Bilateral scattered rhonchi and crackles. Expiratory wheezing also present. ABDOMEN: Soft, non-tender. No mass palpable. LEGS: No edema. No swelling. NERVOUS SYSTEM: Higher functions as mentioned earlier. Moves all 4 limbs. No focal motor or sensory deficit. LYMPHATICS: No lymph node palpable in neck, axillae or groin. SKIN: No ulcer, rash, bleeding. JOINTS: No active deforming arthropathy. LABS: WBC 3.1, hemoglobin 7.8, platelets 67. Sodium 132, potassium 4.4, creatinine 5.25. ASSESSMENT: 1. Acute right lower lobe pneumonia with possible sepsis with neutropenic sepsis, present on admission. 2. Acute renal failure with acute tubular necrosis, multifactorial, with prerenal factors, which is nonoliguric and worsening. 3. Possible fluid overload and congestive heart failure, acute exacerbation, with acute on chronic systolic dysfunction, ejection fraction 45% to 50%, mild to moderate tricuspid regurgitation. 4. Vancomycin-sensitive Enterococcus faecalis from the urine culture. 5. Mary albicans in the sputum. 6. Pancytopenia secondary to chemotherapy. 7. Carcinoma of the breast with metastasis to spine and liver. 8. Hyponatremia. 9. Hypocalcemia. 10.Increased AST. 11.Obesity with body mass index 59.8. 12.Hypertension. 13.Cerebrovascular incident, left-sided, history. 14.History of breast surgery. 15.Remote history of nicotine dependence. RECOMMENDATIONS AND DISCUSSION: I recommend to continue current medications, continue with the monitoring, symptomatic treatment. Otherwise, continue with the IV Lasix drip, bronchodilators, broad-spectrum IV antibiotics. The creatinine has worsened significantly. We will continue to monitor with Nephrology regarding the possibility hemodialysis. Chest x-ray has significantly worsened. We will continue to monitor. Prognosis guarded because of above- mentioned multiple medical issues. Further recommendations to follow. Closely follow with Nephrology. MMODL / IJN: [id number] /
[2019-05-05 16:44] LABS: Glucose,Whole Blood 153 mg/dL (75-99)
--- NOTE | 2019-05-05 20:25 | PN ---
PROGRESS NOTE Patient is seen for followup for acute kidney injury secondary to vancomycin toxicity. The patient has been short of breath. She is volume-overloaded, currently started on a Lasix drip. Serum creatinine continues to worsen. This morning creatinine was 5.2 mg/dL. Patient is maintained on BiPAP. On examination, blood pressure this morning 136/71, heart rate of 91 per minute. Patient is afebrile. EXAMINATION OF THE HEART: S1 and S2. EXAMINATION OF LUNGS: Bilateral breath sounds are heard. ABDOMEN: Soft, obese, non-tender. Examination of lower extremities shows edema 2+ bilaterally. HOUSECLEANER exam is grossly intact. Labs show hemoglobin 7.8, white cell count 3.1. Sodium 132, potassium 4.4, BUN 63, serum creatinine 5.25. ASSESSMENT: 1. Acute kidney injury secondary to acute tubular necrosis/sepsis and vancomycin toxicity, currently nonoliguric with worsening renal function. Patient has been started on Lasix drip, which I will continue for now. I have discussed with her that if her renal function continues to worsen, she may need renal replacement therapy. 2. Volume overload. Continue with the Lasix drip for now. 3. Acute hypoxic respiratory failure, multifactorial, secondary to sepsis and pulmonary edema. 4. Gram-positive bacteremia. 5. Enterococcus faecalis urinary tract infection. 6. Metastatic breast cancer. 7. Anemia, multifactorial. No active bleeding noted. PLAN: Continue with the Lasix drip. Repeat labs in a.m. Avoid any nephrotoxic agents. Renal replacement therapy if renal function continues to worsen. MMODL / IJN: [id number] /
[2019-05-05 20:39] LABS: Glucose,Whole Blood 140 mg/dL (75-99)
[2019-05-05] MEDS: ALPRAZolam 0.25 MG TAB PO PRN (20:57)
[2019-05-05] MEDS: SENNOSIDES-DOCUSATE SODIUM 1 EACH TAB PO SCH (20:58)
[2019-05-05] MEDS: ATORVASTATIN 40 MG TAB PO SCH (20:59)
[2019-05-05] MEDS: MONTELUKAST 10 MG TAB PO SCH (21:06)
--- NOTE | 2019-05-05 21:44 | P.PN ---
Subjective Progress Note Date: 05/05/19 Pleasant 63-year-old female is a complex past medical history regarding her breast carcinoma. 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 Because of increasing pain and neurological difficulties she was evaluated was treated with radiation therapy to the cervical and thoracic spine . She Developed extensive radiation dermatitis and esophagitis. She was hospitalized [facility] and with treatment of the skin and esophagitis she had marked improvement. She has had a subsequent hospitalization at the outside facility where she had a urinary tract infection. She now presents to Hospital feeling poorly with evidence significant weakness with fever 102, chills and evidence of new abnormality. Chest x-ray acute renal failure and generalized malaise. With fluid resuscitation antibiotic therapy she started to feel somewhat better. Cultures are in process with concerns to urinary tract infection as a source of the current bout of sepsis. 05/02/2017 the patient's renal failure continues but her fevers improved. With the elevated vancomycin level this is put on hold. 05/04/2019 patient continues to have increasing creatinine, and feels poorly with her acute renal failure. She is having some shakiness to her arms and legs, weakness and poor appetite. However is not having nausea or emesis. All the food does taste poorly. She's had some increased difficulties with her oral cavity possibly thrush. 05/05/2019 the patient has had a significant worsening of her status overnight. She became profoundly short of breath and required transfusions and its care unit where she's now been placed on BiPAP has been titrated down to 50% now she is feeling considerably better bacillin well. She's having no chest pains. She was seen by cardiology there is evidence of volume overload as well as worsening of her aortic stenosis and regurgitation and pulmonary hypertension. The the treatment of failure has stabilized with no further increase of her creatinine. Vancomycin level is still therapeutic but falling. Objective - Vital Signs Vital signs: Vital Signs Temp 97.9 F 05/05/19 20:01 Pulse 90 05/05/19 21:00 Resp 29 H 05/05/19 21:00 BP 136/65 05/05/19 21:00 Pulse Ox 95 05/05/19 21:00 Intake & Output 05/05/19 05/05/19 05/06/19 06:59 18:59 06:59 Intake Total 600 301.667 20 Output Total 1085 890 270 Balance -485 -588.333 -250 Weight 154.2 kg 154.2 kg Intake: IV 160 220 20 0.9 NS 60 120 20 Cefepime 2 gm In Sodium 100 100 Chloride 0.9% 100 ml @ 200 mls/hr IVPB Q12H [facility] Rx#:[id number] Intake, IV Titration 81.667 Amount Furosemide 100 mg In 81.667 Sodium Chloride 0.9% 90 ml @ 10 MG/HR 10 mls/hr IV .Q10H [facility] Rx#: [id number] Oral 440 Output: Urine 1085 890 270 Other: Voiding Method Indwelling Catheter Indwelling Catheter Indwelling Catheter # Voids 0 - Exam 63-year-old woman presents to Hospital feeling poorly now with a significant worsening shortness of breath HEENT: Anicteric conjunctiva are pink and moist nasal mucosa grossly intact without significant lesions, and the very posterior aspect of the pharynx is now some mild white coating consistent with early thrush. Neck: The neck is supple without significant lymphadenopathy or thyromegaly. Lungs: There is symmetrical air entry with coarse crackles and wheezing to the lung chiang basilar crackles are heard Heart: Regular with the 2/6 systolic murmur left sternal border Abdomen: Obese, Positive bowel sounds soft minimal tenderness is noted in the right upper quadrant without palpable masses or organomegaly. There was no guarding or rebound. Extremities: The upper extremities have excellent pulses they are symmetric, no significant petechiae or telangiectasia. No splinter hemorrhages were noted. The lower extremities have trace edema pulses 2+ and symmetric Neuro: Awake alert oriented to person place and time. There are no acute new gross focal sensory motor deficits. Skin reveals evidence of the resolution of the radiation dermatitis does have some residual color change but there is nothing ulcer. She is not having any further difficulties with the esophagitis either although does have a bit of dry mouth and throat. - Labs CBC & Chem 7: 05/05/19 04:12 05/05/19 04:12 Labs: Abnormal Lab Results - Last 24 Hours (Table) 05/05/19 05/05/19 05/05/19 Range/Units 00:14 00:23 00:23 WBC (3.8-10.6) k/uL RBC 2.68 L (3.80-5.40) m/uL Hgb 9.0 L (11.4-16.0) gm/dL Hct 27.0 L (34.0-46.0) % MCV 100.7 H (80.0-100.0) fL RDW 16.4 H (11.5-15.5) % Plt Count 83 L (150-450) k/uL Lymphocytes # 0.1 L (1.0-4.8) k/uL Sodium 132 L (137-145) mmol/L Carbon Dioxide 15 L (22-30) mmol/L BUN 61 H (7-17) mg/dL Creatinine 5.05 H (0.52-1.04) mg/dL Glucose 183 H (74-99) mg/dL POC Glucose (mg/dL) 217 H (75-99) mg/dL Calcium 7.3 L (8.4-10.2) mg/dL Phosphorus 4.6 H (2.5-4.5) mg/dL AST 64 H (14-36) U/L Albumin 3.2 L (3.5-5.0) g/dL 05/05/19 05/05/19 05/05/19 Range/Units 04:12 04:12 06:54 WBC 3.1 L (3.8-10.6) k/uL RBC 2.30 L (3.80-5.40) m/uL Hgb 7.8 L (11.4-16.0) gm/dL Hct 23.4 L (34.0-46.0) % MCV 101.5 H (80.0-100.0) fL RDW 17.8 H (11.5-15.5) % Plt Count 67 L (150-450) k/uL Lymphocytes # 0.1 L (1.0-4.8) k/uL Sodium 132 L (137-145) mmol/L Carbon Dioxide 19 L (22-30) mmol/L BUN 63 H (7-17) mg/dL Creatinine 5.25 H (0.52-1.04) mg/dL Glucose 184 H (74-99) mg/dL POC Glucose (mg/dL) 200 H (75-99) mg/dL Calcium 7.1 L (8.4-10.2) mg/dL Phosphorus (2.5-4.5) mg/dL AST (14-36) U/L Albumin (3.5-5.0) g/dL 05/05/19 05/05/19 05/05/19 Range/Units 11:28 16:33 20:27 WBC (3.8-10.6) k/uL RBC (3.80-5.40) m/uL Hgb (11.4-16.0) gm/dL Hct (34.0-46.0) % MCV (80.0-100.0) fL RDW (11.5-15.5) % Plt Count (150-450) k/uL Lymphocytes # (1.0-4.8) k/uL Sodium (137-145) mmol/L Carbon Dioxide (22-30) mmol/L BUN (7-17) mg/dL Creatinine (0.52-1.04) mg/dL Glucose (74-99) mg/dL POC Glucose (mg/dL) 166 H 153 H 140 H (75-99) mg/dL Calcium (8.4-10.2) mg/dL Phosphorus (2.5-4.5) mg/dL AST (14-36) U/L Albumin (3.5-5.0) g/dL Microbiology - Last 24 Hours (Table) 04/30/19 11:43 Blood Culture Gram Stain - Final Blood Blood Culture - Final Staphylococcus lugdunenisis 05/03/19 23:18 Blood Culture - Preliminary Blood No Growth after 24 hours Laboratory Results WBC 3.1 k/uL (3.8-10.6) L 05/05/19 04:12 RBC 2.30 m/uL (3.80-5.40) L 05/05/19 04:12 Hgb 7.8 gm/dL (11.4-16.0) L 05/05/19 04:12 Hct 23.4 % (34.0-46.0) L 05/05/19 04:12 MCV 101.5 fL (80.0-100.0) H 05/05/19 04:12 MCH 33.7 pg (25.0-35.0) 05/05/19 04:12 MCHC 33.2 g/dL (31.0-37.0) 05/05/19 04:12 RDW 17.8 % (11.5-15.5) H 05/05/19 04:12 Plt Count 67 k/uL (150-450) L 05/05/19 04:12 Neutrophils % 90 % 05/05/19 04:12 Neutrophils % (Manual) 86 % 05/02/19 06:57 Band Neutrophils % 2 % 05/02/19 06:57 Lymphocytes % 3 % 05/05/19 04:12 Lymphocytes % (Manual) 6 % 05/02/19 06:57 Monocytes % 4 % 05/05/19 04:12 Monocytes % (Manual) 4 % 05/02/19 06:57 Eosinophils % 2 % 05/05/19 04:12 Eosinophils % (Manual) 2 % 05/02/19 06:57 Basophils % 0 % 05/05/19 04:12 Neutrophils # 2.8 k/uL (1.3-7.7) 05/05/19 04:12 Neutrophils # (Manual) 2.00 k/uL (1.3-7.7) 05/02/19 06:57 Lymphocytes # 0.1 k/uL (1.0-4.8) L 05/05/19 04:12 Lymphocytes # (Manual) 0.14 k/uL (1.0-4.8) L 05/02/19 06:57 Monocytes # 0.1 k/uL (0-1.0) 05/05/19 04:12 Monocytes # (Manual) 0.09 k/uL (0-1.0) 05/02/19 06:57 Eosinophils # 0.1 k/uL (0-0.7) 05/05/19 04:12 Eosinophils # (Manual) 0.05 k/uL (0-0.7) 05/02/19 06:57 Basophils # 0.0 k/uL (0-0.2) 05/05/19 04:12 Nucleated RBCs 0 /100 WBC (0-0) 05/02/19 06:57 Manual Slide Review Performed 05/03/19 08:24 Large Platelets Present 04/30/19 11:43 Hypochromasia Slight 05/04/19 08:08 Poikilocytosis (manual Present 05/02/19 06:57 Anisocytosis Slight 05/05/19 04:12 Anisocytosis (manual) Present 05/01/19 07:16 Macrocytosis Slight 05/05/19 04:12 Rouleaux Present 05/02/19 06:57 PT 10.7 sec (9.0-12.0) 05/01/19 12:37 INR 1.0 (<1.2) 05/01/19 12:37 APTT 26.3 sec (22.0-30.0) 05/01/19 12:37 Sodium 132 mmol/L (137-145) L 05/05/19 04:12 Potassium 4.4 mmol/L (3.5-5.1) 05/05/19 04:12 Chloride 101 mmol/L (98-107) 05/05/19 04:12 Carbon Dioxide 19 mmol/L (22-30) L 05/05/19 04:12 Anion Gap 12 mmol/L 05/05/19 04:12 BUN 63 mg/dL (7-17) H 05/05/19 04:12 Creatinine 5.25 mg/dL (0.52-1.04) H 05/05/19 04:12 Est GFR (CKD-EPI)AfAm 9 (>60 ml/min/1.73 sqM) 05/05/19 04:12 Est GFR (CKD-EPI)NonAf 8 (>60 ml/min/1.73 sqM) 05/05/19 04:12 Glucose 184 mg/dL (74-99) H 05/05/19 04:12 POC Glucose (mg/dL) 140 mg/dL (75-99) H 05/05/19 20:27 POC Glu It Telecom Technician ID María Sauer 05/05/19 20:27 Plasma Lactic Acid Jon 0.9 mmol/L (0.7-2.0) 05/05/19 08:15 Calcium 7.1 mg/dL (8.4-10.2) L 05/05/19 04:12 Phosphorus 4.6 mg/dL (2.5-4.5) H 05/05/19 00:23 Magnesium 2.2 mg/dL (1.6-2.3) 05/05/19 04:12 Total Bilirubin 0.6 mg/dL (0.2-1.3) 05/05/19 00:23 AST 64 U/L (14-36) H 05/05/19 00:23 ALT 44 U/L (9-52) 05/05/19 00:23 Alkaline Phosphatase 96 U/L (38-126) 05/05/19 00:23 NT-Pro-B Natriuret Pep 06287 pg/mL 05/05/19 00:23 Total Protein 6.7 g/dL (6.3-8.2) 05/05/19 00:23 Albumin 3.2 g/dL (3.5-5.0) L 05/05/19 00:23 Urine Color Dark Brown 04/30/19 13:00 Urine Appearance Turbid (Clear) H 04/30/19 13:00 Urine pH 5.0 (5.0-8.0) 04/30/19 13:00 Ur Specific [place] 1.016 (1.001-1.035) 04/30/19 13:00 Urine Protein 2+ (Negative) H 04/30/19 13:00 Urine Glucose (UA) Negative (Negative) 04/30/19 13:00 Urine Ketones Negative (Negative) 04/30/19 13:00 Urine Blood Large (Negative) H 04/30/19 13:00 Urine Nitrite Negative (Negative) 04/30/19 13:00 Urine Bilirubin Negative (Negative) 04/30/19 13:00 Urine Urobilinogen 4.0 mg/dL (<2.0) 04/30/19 13:00 Ur Leukocyte Esterase Large (Negative) H 04/30/19 13:00 Urine RBC >182 /hpf (0-5) H 04/30/19 13:00 Urine WBC 40 /hpf (0-5) H 04/30/19 13:00 Urine WBC Clumps Occasional /hpf (None) H 04/30/19 13:00 Ur Squamous Epith Cells 13 /hpf (0-4) H 04/30/19 13:00 Urine Bacteria Moderate /hpf (None) H 04/30/19 13:00 Urine Mucus Occasional /hpf (None) H 04/30/19 13:00 Random Vancomycin 17.6 ug/mL 05/05/19 04:12 LOUANN Screen NEGATIVE (NEGATIVE) 05/03/19 23:18 c-ANCA <1:20 Titer (<1:20) 05/03/19 23:18 p-ANCA <1:20 Titer (<1:20) 05/03/19 23:18 Double Strand DNA Ab NEGATIVE (NEGATIVE) 05/03/19 23:18 Anti-DNA Ab Interp <1.0 IU/mL 05/03/19 23:18 Complement C3 117.0 mg/dL (80.0-207.0) 05/03/19 23:18 Complement C4 16.4 mg/dL (10.0-53.0) 05/03/19 23:18 Hepatitis A IgM Ab Non-Reactive (Non-Reactive) 05/03/19 23:18 Hep Bs Antigen Non-Reactive (Non-Reactive) 05/03/19 23:18 Hep B Core IgM Ab Non-Reactive (Non-Reactive) 05/03/19 23:18 Hep C IgG Ab Non-Reactive (Non-Reactive) 05/03/19 23:18 Influenza Type A RNA Not Detected (Not Detectd) 04/30/19 13:04 Influenza Type B (PCR) Not Detected (Not Detectd) 04/30/19 13:04 Microbiology Entire Visit 04/30/19 11:43 Blood Blood Culture Gram Stain - Final 04/30/19 11:43 Blood Blood Culture - Final Staphylococcus lugdunenisis 05/03/19 23:18 Blood Blood Culture - Preliminary No Growth after 24 hours 05/02/19 09:21 Sputum Gram Stain - Final 05/02/19 09:21 Sputum Sputum Culture - Final Mary albicans 04/30/19 13:00 Urine,Voided Urine Culture - Final Enterococcus faecalis 04/30/19 11:43 Blood Blood Culture - Final Assessment and Plan (1) Acute renal failure Current Visit: Yes Status: Acute Priority: High Code(s): N17.9 - ACUTE KIDNEY FAILURE, UNSPECIFIED SNOMED Code(s): 08301416 (2) Gram-positive cocci bacteremia Current Visit: No Status: Acute Code(s): R78.81 - BACTEREMIA SNOMED Code(s): 328428308672 (3) Metastatic breast carcinoma Current Visit: Yes Status: Chronic Priority: Medium Code(s): C50.919 - MALIGNANT NEOPLASM OF UNSP SITE OF UNSPECIFIED FEMALE BREAST SNOMED Code(s): 103887921 (4) Urinary tract infection Narrative/Plan: 63-year-old woman who has a history of the metastaticBreast carcinoma with evidence of significant metastasis to the skeleton as well as liver metastasis presents to Hospital feeling poorly with another bout of fever chills malaise occurring after her recent treatment with chemotherapy. Been seen by her oncology team and chemotherapy is now on hold. He does not have severe neutropenia and is being monitored. There is evidence of urinary tract infection is likely etiology her current sepsis and laboratories: Positive blood culture with gram-positive cocci. She's had several prior blood cultures with gram-positive cocci that has been staphylococcus ludegensis, which is a coagulase-negative staph and since the patient does not have an indwelling catheter has not been thought to be a significant pathogen. Somewhat concerning if it continues to be found. Urine culture is showing evidence of gram-positive cocci and constantly vancomycin therapy is being utilized as well as Rocephin until there is further data. She has developed acute renal failure and consequently very close monitoring with vancomycin therapy is indicated we'll try to limit the dosing as much as possible. Nephrology will be seeing her for her acute increase of her creatinine to 3.46. 2-D echocardiogram has been requested and she shall be monitored. 05/02/2018 dear culture now shows evidence of enterococcus blood cultures are growing coagulase negative staph. Antibiotic therapy will now be D escalated. The Rocephin and vancomycin are discontinued. Vancomycin level currently is elevated. Once his level falls to less than 15 will then be able to initiate alternative antibiotic therapy for the treatment of the enterococcus. If blood cultures remain negative would not need further IV antibiotic therapy. 05/04/2019 the patient continues to feel very poorly with evidence of her acute renal failure the toxicity associated with that. The vancomycin level has dropped to 23 and likely will be subtherapeutic and the next day or so. At that time with initiate by therapy to complete the treatment of her enterococcal infection. Nephrology is following and continue to contemplate the need for renal replacement therapy. The patient's blood cultures are being repeated to ensure that the foot was negative staph is not persistent, is noted he has been seen on several occasions in the past, but she does not have any indwelling catheters. 05/05/2019 the patient has had a significant worsening of her status development of respiratory failure requiring BiPAP therapy with evidence of congestive heart failure and worsening underlying cardiac function. Aortic stenosis and regurgitation symptoms considerably worse in her pulmonary hypertension is worse. With diuresis she is having less short of breath her BiPAP as tolerated 50% The vancomycin level will likely come subtherapeutic tomorrow and that will consider alteration of antibiotic therapy vancomycin is being utilized for the enterococcal urinary tract infection Current Visit: Yes Status: Acute Code(s): N39.0 - URINARY TRACT INFECTION, SITE NOT SPECIFIED SNOMED Code(s): 60672214
[2019-05-06] MEDS: FUROSEMIDE 100 MG in SODIUM CHLORIDE 0.9% 90 ML IV SCH ×2 (04:00→11:24)
[2019-05-06 04:43] LABS: Anisocytosis Slight; Basophils % (A) 0 %; Eosinophils % (A) 1 %; HCT 23.5 % (34.0-46.0); HGB 7.7 gm/dL (11.4-16.0); Lymphocytes # (A) 0.1 k/uL (1.0-4.8); Lymphocytes % (A) 2 %; MCH 32.9 pg (25.0-35.0); MCHC 32.7 g/dL (31.0-37.0); MCV 100.7 fL (80.0-100.0); Macrocytosis Slight; Mean Platelet Volume 9.5; Monocytes # (A) 0.2 k/uL (0-1.0); Monocytes % (A) 3 %; Neutrophils % (A) 92 %; RBC 2.33 m/uL (3.80-5.40); RDW 16.9 % (11.5-15.5); WBC 4.3 k/uL (3.8-10.6)
[2019-05-06 04:52] LABS: Platelet Count 65 k/uL (150-450)
[2019-05-06 04:55] LABS: Calcium 6.8 mg/dL (8.4-10.2); Potassium 4.3 mmol/L (3.5-5.1)
[2019-05-06] MEDS: CLOTRIMAZOLE TROCHE 10 MG TROCHE MUCOUS MEM SCH ×4 (05:48→21:04)
[2019-05-06] MEDS: methylPREDNISolone SOD SUCCI 40 MG/ML 1 ML VIAL IV SCH ×3 (06:25→17:53)
[2019-05-06 06:56] LABS: Glucose,Whole Blood 162 mg/dL (75-99)
[2019-05-06] MEDS: SUCRALFATE 1 GM TAB PO SCH ×4 (06:57→21:20)
[2019-05-06] MEDS: INSULIN ASPART (NovoLOG) 100 UNIT/ML VIAL SQ SCH ×4 (06:57→21:02)
[2019-05-06] MEDS: PANTOPRAZOLE 40 MG TABLET PO SCH (06:57)
[2019-05-06] MEDS: IPRATROPIUM-ALBUTEROL 3 ML NEB INHALATION SCH ×4 (07:18→19:29)
[2019-05-06] MEDS: BUDESONIDE 1 MG/2 ML NEBU INHALATION SCH ×2 (07:18→19:29)
--- NOTE | 2019-05-06 08:11 | XR ---
EXAMINATION TYPE: XR chest 1V DATE OF EXAM: 05/06/2019 CLINICAL HISTORY: Difficulty breathing and pneumonia progress study. TECHNIQUE: Single AP portable upright view of the chest is obtained. COMPARISON: Chest x-ray from one day earlier and older studies. FINDINGS: There is persistent cardiomegaly. There is diffuse bilateral alveolar and interstitial [place] prominent mid to lower lungs again seen. No pleural effusion or pneumothorax is noted. Osseous structures are intact. IMPRESSION: Overall stable findings from one day earlier, the diffuse bilateral alveolar and interst itial edema and/or infiltrates with some sparing of the bilateral upper lobes all redemonstrated. Con turbine mechanic developing ARDS.
[2019-05-06] MEDS: HYDROcodone/APAP 5-325MG 1 EACH TAB PO PRN ×2 (08:38→21:21)
[2019-05-06] MEDS: DILTIAZEM CD 180 MG CAP.ER.24H PO SCH (08:41)
[2019-05-06] MEDS: GABAPENTIN 300 MG CAP PO SCH (08:41)
[2019-05-06] MEDS: SODIUM BICARBONATE TAB 650 MG TAB PO SCH ×2 (08:41→21:20)
[2019-05-06] MEDS: ASPIRIN 81 MG PO SCH (08:41)
[2019-05-06] MEDS: FLUTICASONE 50MCG/SPRAY NASAL 16GM EA NOSTRIL SCH (09:29)
[2019-05-06] MEDS: APIXABAN 5 MG TAB PO SCH ×2 (10:31→21:20)
[2019-05-06] MEDS: ALPRAZolam 0.25 MG TAB PO PRN ×2 (10:33→21:20)
[2019-05-06] MEDS ORDERED: LORazepam 2 MG/ML INJ IV STA (11:20)
[2019-05-06] MEDS ORDERED: LIDOCAINE 1% INJ 10MG/ML (20 ML MDV) ONE (11:50)
[2019-05-06] MEDS ORDERED: HEPARIN SODIUM 1,000 UN/ML (10ML VL) ONE (11:50)
--- NOTE | 2019-05-06 11:51 | P.PN ---
Subjective Progress Note Date: 05/06/19 Principal diagnosis: Acute sepsis, acute urinary tract infection, gram-positive bacteremia, acute renal failure I was asked to evaluate this patient for a right upper lobe pneumonia. The patient was also be more short of breath yesterday and his chest x-ray was ordered and showed a questionable infiltrate in the right upper lobe and pneumonia was suspected. Note that the patient is morbidly obese with a BMI 59.8. The patient also has history of metastatic breast cancer for which she has undergone radiation therapy to her cervical spine that was complicated by radiation-induced esophagitis and difficulties in swallowing. She has been on systemic treatment with a combination of Ibrance and Fosladex. The patient presented to the hospital because of pancytopenia and infection and this do not to be a UTI with Enterococcus faecalis and blood culture was positive with Staphylococcus Lugdunenisis , which is a coagulase-negative staph and the patient was covered with vancomycin per IDs recommendations. Time of my evaluation, the patient was afebrile. Pulse ox is 96% on room air. No significant tachycardia. No chest pain. No pleurisy. No hemoptysis. She has some chronic swelling in lower extremities bilaterally. Moist recent white count is at 1.9. Platelet count is at 75. The patient also had developed an acute kidney injury. As the patient had a normal kidney function on 04/16/2019. Creatinine is up to 4.8 and this is probably related to an ATN induced by sepsis and further complicated by possible vancomycin-induced toxicity as the patient's serum vancomycin level was quite elevated with a vancomycin level of 37.8 from May 022018 is down trending. No evidence of any hydronephrosis on the renal ultrasound. Patient was reevaluated today on 05/05/2019, patient remains in the intensive care unit, quite short of breath, intermittent episodes of cough and hemoptysis. No fever, worsening chest x-ray with bilateral interstitial edema or infiltrates, poor urine output, hence the patient was switched from IV Lasix to Lasix drip at 10 mg per hour. Worsening renal functioning and acute kidney injury, patient may require hemodialysis. Being followed by nephrology. WBC count today is 3.1 hemoglobin is 7.8 electrolytes are normal however her bicarb is low at 19 BUN is up to 63 creatinine is up to 5.25. Her creatinine on admission 5 days ago was 2.69. Presently on cefepime, off vancomycin. Cultures so far have shown Enterococcus faecalis in the urine, and Staphylococcus lugdunenesis in the blood. Those are being addressed by Dr. Zimmerman on the case, patient is requiring 5 L nasal cannula, her O2 saturation is marginal, however intermittently has been on BiPAP. And that seems to be helping much better. Chest x-ray is worrisome, hence I recommended patient be placed on Lasix drip at 10 mg per hour. And discontinued Lasix at 60 mg IV push every 6 hours. Patient was reevaluated today on 05/06/2019, patient remains in the intensive care unit, almost BiPAP dependent. Remains on Lasix drip at 10 mg per hour, and urine output seems to be in the range of 30-50 mL per hour. Chest x-ray continues to show interstitial infiltrates/edema bilaterally. Renal functioning is a bit worse, creatinine is up to 5.62. Baseline creatinine on admission was 2.69. Patient remains on 50% BiPAP, and she desaturates significantly off BiPAP. Continues to have cough and wheezing. And significantly abnormal chest x-ray. Her daughter is at bedside today, and updated on her condition and patient may end up eventually requiring intubation and mechanical ventilation, but at this point we will try to manage with BiPAP and with bronchodilators, steroids, antibiotics, and diuretics. All her cultures were reviewed again, patient is being followed by Dr. Zimmerman. WBC count today is 4.3 hemoglobin is 7.7 and electrolytes are normal BUN is 77 creatinine is 5.62. Objective - Vital Signs Vital signs: Vital Signs Temp 97 F L 05/06/19 08:00 Pulse 98 05/06/19 11:09 Resp 25 H 05/06/19 11:00 BP 142/66 05/06/19 11:00 Pulse Ox 92 L 05/06/19 11:00 Intake & Output 05/05/19 05/06/19 05/06/19 18:59 06:59 18:59 Intake Total 301.667 605 104 Output Total 890 1005 240 Balance -588.333 -400 -136 Weight 154.2 kg 153.7 kg Intake: IV 220 130 30 0.9 NS 120 130 30 Cefepime 2 gm In Sodium 100 Chloride 0.9% 100 ml @ 200 mls/hr IVPB Q12H [facility] Rx#:[id number] Intake, IV Titration 81.667 100 74 Amount Furosemide 100 mg In 81.667 100 74 Sodium Chloride 0.9% 90 ml @ 10 MG/HR 10 mls/hr IV .Q10H [facility] Rx#: [id number] Oral 375 Output: Urine 890 1005 240 Other: Voiding Method Indwelling Catheter Indwelling Catheter Indwelling Catheter - Exam Physical Exam: Revealed an obese 63-year-old female in moderate distress, however seems to be BiPAP dependent. HEENT: Neck supple, no neck masses, no JVD. No adenopathy. HEENT:[Neck is supple.] [No neck masses.] [No thyromegaly.] [No JVD.] Chest: [Symmetrical chest expansion, diffuse crackles and rhonchi and wheezes bilaterally. No chest wall tenderness. Cardiac Exam: [Normal S1 and S2, no S3 gallop, no murmur.] Abdomen: [Obese, Soft, nontender, no megaly, no rebound, no guarding, normal bowel sounds.] Extremities: [No clubbing, 1+ bipedal edema, no cyanosis.] Good pulses bilaterally. Neurological Exam: Alert and oriented 3. [No focal neurologic deficit.] Lymphatics: No lymphadenopathy. Psychiatric: Normal mood affect and normal mental status examination. Skin: No rashes. - Labs CBC & Chem 7: 05/06/19 04:06 05/06/19 04:06 Labs: Abnormal Lab Results - Last 24 Hours (Table) 05/05/19 05/05/19 05/06/19 Range/Units 16:33 20:27 04:06 RBC 2.33 L (3.80-5.40) m/uL Hgb 7.7 L (11.4-16.0) gm/dL Hct 23.5 L (34.0-46.0) % MCV 100.7 H (80.0-100.0) fL RDW 16.9 H (11.5-15.5) % Plt Count 65 L (150-450) k/uL Lymphocytes # 0.1 L (1.0-4.8) k/uL Sodium (137-145) mmol/L Carbon Dioxide (22-30) mmol/L BUN (7-17) mg/dL Creatinine (0.52-1.04) mg/dL Glucose (74-99) mg/dL POC Glucose (mg/dL) 153 H 140 H (75-99) mg/dL Calcium (8.4-10.2) mg/dL 05/06/19 05/06/19 Range/Units 04:06 06:44 RBC (3.80-5.40) m/uL Hgb (11.4-16.0) gm/dL Hct (34.0-46.0) % MCV (80.0-100.0) fL RDW (11.5-15.5) % Plt Count (150-450) k/uL Lymphocytes # (1.0-4.8) k/uL Sodium 133 L (137-145) mmol/L Carbon Dioxide 17 L (22-30) mmol/L BUN 77 H (7-17) mg/dL Creatinine 5.62 H (0.52-1.04) mg/dL Glucose 143 H (74-99) mg/dL POC Glucose (mg/dL) 162 H (75-99) mg/dL Calcium 6.8 L (8.4-10.2) mg/dL Microbiology - Last 24 Hours (Table) 05/05/19 04:39 Blood Culture - Preliminary Blood No Growth after 24 hours 05/05/19 04:12 Blood Culture - Preliminary Blood No Growth after 24 hours 05/03/19 23:18 Blood Culture - Preliminary Blood No Growth after 48 hours 04/30/19 11:43 Blood Culture Gram Stain - Final Blood Blood Culture - Final Staphylococcus lugdunenisis Assessment and Plan Assessment: Impression: 1 shortness of breath with acute hypoxic respiratory failure secondary to sepsis, urinary tract infection, anemia, and suspect pulmonary edema which is possibly cardiogenic or noncardiogenic in nature. She does have elevated BNP level, echocardiogram showed mildly impaired ejection fraction 45%, severe aorti c stenosis is also noted on the echocardiogram. Peak gradient across the aortic valve is 76 with a mean of 43.8 and her urine output is marginal in spite of Lasix drip at 10 mg per hour. Patient may require hemodialysis. And ultrafiltration. 2 acute kidney injury secondary to ATN, possible vancomycin nephrotoxicity. 3 gram-positive bacteremia being addressed by infectious disease on the case. 4 Enterococcus faecalis urinary tract infection, being addressed by infectious disease. 5 metastatic breast cancer patient has been on chemotherapy until recently. 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 8 chemotherapy induced pancytopenia 9 metabolic acidosis secondary to sepsis and acute kidney injury. Recommendation: Discussed and updated the patient and her daughter at bedside on her condition, made aware that her condition is quite poor, may still end up requiring intubation and mechanical ventilation, and she will most likely require hemodialysis. Discussed her condition with the technical intern on the case. Patient was also noted to be having intermittent episodes early this morning of atrial fibrillation, rate seems to be well-controlled, cardiology was consulted. In the meantime patient may have to be placed on Eliquis 5 mg twice a day. We'll continue to follow, will continue to monitor the patient in the ICU, patient is definitely critically ill, and prognosis is extremely poor and guarded. Critical care time is 35 minutes Time with Patient: Greater than 30
--- NOTE | 2019-05-06 12:11 | PCN ---
PROCEDURE NOTE PREOPERATIVE DIAGNOSIS: Acute chronic renal failure. PROCEDURE: Ultrasound-guided 20 cm dialysis catheter placed right femoral approach. DESCRIPTION OF PROCEDURE: The patient was seen in the intensive care unit. The patient has a BiPAP with super obesity. Right groin was prepped and draped in usual sterile manner. Ultrasound-guided micropuncture introduced right common femoral vein. Then micropuncture guidewire was passed and then we placed 4-Maltese dilator on the top of the guidewire. After that, we passed a regular guidewire without any resistance and dilator was advanced on the top of the guidewire. Then we placed 20 cm dialysis catheter on the top of the guidewire. The guidewire was removed, flushed with heparin saline and hep-locked. Dressing applied. Patient tolerated the procedure well. MMODL / IJN: [id number] /
[2019-05-06] MEDS: CEFEPIME 2 GM in SODIUM CHLORIDE 0.9% 100 ML IVPB SCH (12:32)
[2019-05-06 12:40] LABS: Glucose,Whole Blood 180 mg/dL (75-99)
--- NOTE | 2019-05-06 14:21 | P.PN ---
Subjective Progress Note Date: 05/06/19 Principal diagnosis: Fever, congestive heart failure, acute renal failure, metastatic breast cancer In follow-up today patient continues on BiPAP, she feels that her breathing is a little more comfortable, she still is only able to speak short sentences before getting short of breath, due to the shortness of breath she is not able to move around much, but she is denying any other acute complaints Objective - Vital Signs Vital signs: Vital Signs Temp 97 F L 05/06/19 12:00 Pulse 104 H 05/06/19 13:00 Resp 33 H 05/06/19 13:00 BP 141/53 05/06/19 13:00 Pulse Ox 92 L 05/06/19 13:00 Intake & Output 05/05/19 05/06/19 05/06/19 18:59 06:59 18:59 Intake Total 301.667 605 234 Output Total 890 1005 370 Balance -588.333 -400 -136 Weight 154.2 kg 153.7 kg Intake: IV 220 130 160 0.9 NS 120 130 60 Cefepime 2 gm In Sodium 100 100 Chloride 0.9% 100 ml @ 200 mls/hr IVPB Q12H [facility] Rx#:[id number] Intake, IV Titration 81.667 100 74 Amount Furosemide 100 mg In 81.667 100 74 Sodium Chloride 0.9% 90 ml @ 10 MG/HR 10 mls/hr IV .Q10H [facility] Rx#: [id number] Oral 375 Output: Urine 890 1005 370 Other: Voiding Method Indwelling Catheter Indwelling Catheter Indwelling Catheter - Constitutional General appearance: Present: cooperative, mild distress, obese - EENT Eyes: Present: anicteric sclerae, EOMI - Respiratory Respiratory: bilateral: rales - Cardiovascular Rhythm: irregularly irregular Heart sounds: normal: S1, S2 - Peripheral edema leg Peripheral Edema: bilateral: 1+ - Gastrointestinal General gastrointestinal: Present: normal bowel sounds, soft - Neurologic Neurologic: Present: CNII-XII intact - Musculoskeletal Musculoskeletal: Present: generalized weakness - Psychiatric Psychiatric: Present: A&O x's 3, appropriate affect, intact judgment & insight - Labs CBC & Chem 7: 05/06/19 04:06 05/06/19 04:06 Labs: Abnormal Lab Results - Last 24 Hours (Table) 05/05/19 05/05/19 05/06/19 Range/Units 16:33 20:27 04:06 RBC 2.33 L (3.80-5.40) m/uL Hgb 7.7 L (11.4-16.0) gm/dL Hct 23.5 L (34.0-46.0) % MCV 100.7 H (80.0-100.0) fL RDW 16.9 H (11.5-15.5) % Plt Count 65 L (150-450) k/uL Lymphocytes # 0.1 L (1.0-4.8) k/uL Sodium (137-145) mmol/L Carbon Dioxide (22-30) mmol/L BUN (7-17) mg/dL Creatinine (0.52-1.04) mg/dL Glucose (74-99) mg/dL POC Glucose (mg/dL) 153 H 140 H (75-99) mg/dL Calcium (8.4-10.2) mg/dL 05/06/19 05/06/19 05/06/19 Range/Units 04:06 06:44 12:28 RBC (3.80-5.40) m/uL Hgb (11.4-16.0) gm/dL Hct (34.0-46.0) % MCV (80.0-100.0) fL RDW (11.5-15.5) % Plt Count (150-450) k/uL Lymphocytes # (1.0-4.8) k/uL Sodium 133 L (137-145) mmol/L Carbon Dioxide 17 L (22-30) mmol/L BUN 77 H (7-17) mg/dL Creatinine 5.62 H (0.52-1.04) mg/dL Glucose 143 H (74-99) mg/dL POC Glucose (mg/dL) 162 H 180 H (75-99) mg/dL Calcium 6.8 L (8.4-10.2) mg/dL Microbiology - Last 24 Hours (Table) 05/05/19 04:39 Blood Culture - Preliminary Blood No Growth after 24 hours 05/05/19 04:12 Blood Culture - Preliminary Blood No Growth after 24 hours 05/03/19 23:18 Blood Culture - Preliminary Blood No Growth after 48 hours Assessment and Plan (1) Acute respiratory failure Narrative/Plan: Patient is on BiPAP in the intensive care unit being monitored closely by the Critical Care team. After discussion with the patient, family as well as nursing and there has been discussion of possible intubation. The family is discussing CODE STATUS and how they would like to proceed if pt progresses to respiratory failure requiring mechanical ventilation. Current Visit: Yes Status: Acute Priority: High Code(s): J96.00 - ACUTE RESPIRATORY FAILURE, UNSP W HYPOXIA OR HYPERCAPNIA SNOMED Code(s): 95820722 (2) Fever Current Visit: Yes Status: Resolved Priority: High Code(s): R50.9 - FEVER, UNSPECIFIED SNOMED Code(s): 310095912 (3) Metastatic breast carcinoma Narrative/Plan: Patient recently had change in her hormonal therapy from oral to IM. She received loading dose of Faslodex 03/14 through 04/16. Her last dose of Xgeva was on April 16. Patient will be due for xgeva and Faslodex in about 2 weeks. Patient's oral Ibrance is on hold. This is a 21 day regimen every 28 days. Patient has had difficulties tolerating Ibrance treatment. Dose can be adjusted or, patient could be considered for a different therapy. Decisions will be made after her acute condition has been treated. Patient does have hormone receptor positive breast cancer that has numerous salome es of therapy that pt has never even seen yet. Dr. Grande discussed with the patient that it is worth aggressive treatment of acute conditions. Current Visit: Yes Status: Chronic Priority: Medium Code(s): C50.919 - MALIGNANT NEOPLASM OF UNSP SITE OF UNSPECIFIED FEMALE BREAST SNOMED Code(s): 800673785 (4) Acute renal failure Narrative/Plan: BUN and creatinine are slightly worse today. Case discussed with Nephrology. They're following closely and will decide if dialysis will be required Current Visit: Yes Status: Acute Priority: High Code(s): N17.9 - ACUTE KIDNEY FAILURE, UNSPECIFIED SNOMED Code(s): 89136342 Plan: Doctor attests: I performed a history and physical examination of this patient, developed impression and plan of care, discussed with dictator. I agree with dictators note, documented as a scribe.
[2019-05-06] MEDS ORDERED: DILTIAZEM DRIP BOLUS FROM BAG 1 MG SOLN IV ONE (14:25)
[2019-05-06] MEDS ORDERED: DILTIAZEM 125 MG in SODIUM CHLORIDE 0.9% 100 ML IV SCH (14:30)
--- NOTE | 2019-05-06 15:13 | PN ---
PROGRESS NOTE Patient is seen for followup for acute kidney injury, currently nonoliguric. Patient was started on Lasix drip yesterday. She has had good urine output. However, she is quite short of breath. I have discussed dialysis with her and she is agreeable for starting renal replacement therapy mainly for fluid overload and hopefully we can avoid intubation. PHYSICAL EXAMINATION: This morning, blood pressure was 137/67, heart rate 84 per minute, patient is afebrile. Examination of the heart S1, S2. Examination of the lungs, bilateral breath sounds are heard. Crackles are heard bilaterally. Abdomen is soft, morbidly obese. Examination of the lower extremities shows edema 2+ bilaterally. LANGUAGES AND [employer]ITER[employer] INSTRUCTOR exam grossly intact. Patient moving all 4 extremities. LABS: Show hemoglobin 7.7, sodium 133, potassium 4.3, BUN 77, serum creatinine 5.62. ASSESSMENT: 1. Acute kidney injury, acute tubular necrosis and secondary to vancomycin toxicity, currently nonoliguric. Serum creatinine remains elevated. However, patient is significantly hypervolemic for which she will need to start renal replacement therapy. Patient and family are agreeable. We will place dialysis catheter this morning and arrange for stat treatment mainly for ultrafiltration. Patient will have a second treatment of hemodialysis again tomorrow. We will try for about 2-3 L of ultrafiltration. 2. Volume overload. Continue with Lasix drip and arrange for hemodialysis. 3. Metabolic acidosis secondary to renal failure, maintained on sodium bicarb. 4. An acute hypoxic respiratory failure, multifactorial secondary to sepsis, pulmonary edema, maintained on BiPAP. 5. Enterococcus faecalis urinary tract infection. 6. Metastatic breast cancer. 7. Atrial fibrillation with RVR, now with controlled ventricular response. PLAN: Hemodialysis today as well as in a.m. Hold off on Eliquis until the catheter is placed. MMODL / IJN: [id number] /
[2019-05-06 17:27] LABS: Glucose,Whole Blood 164 mg/dL (75-99)
--- NOTE | 2019-05-06 19:03 | PN ---
PROGRESS NOTE DATE OF SERVICE: 05/06/2019 This 64-year-old woman who had carcinoma of the breast with multiple metastases was admitted initially with neutropenic sepsis and possible right lower lobe pneumonia. The patient initially had features of sepsis. Subsequently the patient developed renal failure which is multifactorial which is worsening. The patient is also confused and has shortness of breath. The patient has evidence of fluid overload. The patient was transferred to ICU and was on BiPAP. Dr. Salazar placed a dialysis catheter and new onset of hemodialysis was initiated. Three liters of fluid is planned to be taken today. The patient also developed atrial fibrillation with fast ventricular rate. Cardiology has been consulted. Multiple consultants are following the patient closely. The patient is on BiPAP, sleeping at this time. Past medical history reviewed. Review of systems could not be taken because of the above-mentioned reasons. CURRENT MEDICATIONS: 1. [place] 5 mg q.4 p.r.n. 2. DuoNeb q.i.d. and p.r.n. 3. Xanax 0.25 t.i.d. 4. Eliquis 5 mg p.o. b.i.d. 5. Aspirin 160 mg p.o. daily. 6. Lipitor 40 mg daily. 7. Pulmicort 1 mg b.i.d. 8. Cefepime 2 grams IV q.8. 9. Mycelex 10 mg. 10.Cardizem. 11.Flonase. 12.Lasix. 13.Solu-Medrol 40 IV q.6. 14.Singulair. 15.Narcan. 16.Protonix. 17.MiraLAX. 18.Silver sulfadiazine. 19.Sodium bicarb. 20.Carafate. PHYSICAL EXAMINATION: Pulse is 142, blood pressure 140/66, respiration 22, temperature normal, pulse ox 92% on BiPAP. BiPAP settings are noted. HEENT: Conjunctivae normal. Oral mucosa moist. NECK: No jugular venous distention. No carotid bruit. No lymph node enlargement. CARDIOVASCULAR SYSTEM: S1, S2 tachycardic. No S3. No S4. RESPIRATORY SYSTEM: Breath sounds diminished at the bases. A few scattered rhonchi. Expiratory wheezing and crackles also present. Breathing efforts appear to be increased. ABDOMEN: Soft, obese, non-tender. LEGS: Bilateral leg edema. NERVOUS SYSTEM: Could not be tested completely. SKIN: No ulcer, rash, bleeding. LABS: WBC 4.3, hemoglobin 7.7, sodium 133, creatinine 5.62. ASSESSMENT: 1. Acute right lower lobe pneumonia with possible neutropenic sepsis, present on admission. 2. Acute renal failure, acute tubular necrosis, multifactorial, with prerenal factors, worsening. Started on new-onset hemodialysis. 3. Possible fluid overload and congestive heart failure, acute exacerbation, with acute on chronic systolic dysfunction, ejection fraction 45% to 50%, with mild to moderate tricuspid regurgitation. 4. Atrial fibrillation with fast ventricular rate. 5. Vancomycin-sensitive Enterococcus faecalis from the urine culture. 6. Mary albicans in the sputum. 7. Pancytopenia secondary to chemotherapy. 8. Carcinoma of the breast with metastases to the spine and liver. 9. Hyponatremia. 10.Hypocalcemia. 11.Increased AST. 12.Obesity with body mass index of 59.8. 13.Hypertension. 14.History of cerebrovascular accident, left-sided history. 15.History of breast surgery. 16.Remote history of nicotine dependence. RECOMMENDATIONS AND DISCUSSION: I recommend to continue current medications, continue with the monitoring, symptomatic treatment. Continue with hemodialysis. Monitor fluid/electrolyte balance. Continue the bronchodilators. Continue with steroids and antibiotics. The patient is also started on Cardizem drip at this time. Closely follow with Cardiology. Two-D echo as mentioned earlier. Overall prognosis is extremely guarded because of multiple complex medical issues; however, we will continue to monitor. Further recommendations to follow. MMODL / IJN: [id number] /
[2019-05-06 19:17] LABS: Hepatitis B Surface Antigen Non-Reactive (Non-Reactive)
[2019-05-06 20:42] LABS: Hepatitis B Surface AB- Quant 3.5 mIU/mL; Hepatitis B Surface Antibody Non-Reactive (Non-Reactive)
--- NOTE | 2019-05-06 20:46 | CONS ---
CONSULTATION This patient is seen for evaluation of atrial fibrillation. Patient's medical records are reviewed, chart reviewed, patient's condition discussed with the nurse. This patient has a history of metastatic breast cancer. She was admitted with pancytopenia, sepsis and urinary tract infection, has been treated with antibiotics. Subsequently patient developed acute renal failure. The patient was transferred to the intensive care unit because of the respiratory distress and fluid overload. Patient has a history of atrial fibrillation in the past. However, patient was in sinus rhythm this morning. Subsequently patient developed atrial fibrillation. Patient did not complain of any chest pain. PAST MEDICAL HISTORY: Past medical history includes: 1. Hysterectomy. 2. Joint replacement. 3. Possible history of cancer. 4. History of CVA on the left side in 2018. 5. History of cancer of the cervical spine. MEDICATIONS: The patient's current medications are reviewed. PHYSICAL EXAMINATION: Physical examination at present reveals patient is currently on the BiPAP with a heart rate varying between 110 and 130, blood pressure 140/66 mmHg, oxygen saturation 92%. Head/ENT examination is negative. HEART: First and second heart sounds are heard. Lung examination reveals bilateral scattered rhonchi. ABDOMEN: Soft. EXTREMITIES: Peripheral pulses are not felt. LABS: The patient's hemoglobin is 7.7. Platelet count is 65. Electrolytes are normal. Creatinine is 5.62. FINAL IMPRESSION: 1. Atrial fibrillation with a moderately rapid ventricular response. This patient's chest x-ray shows bilateral alveolar infiltrates suggestive of fluid overload. 2. Patient's echocardiogram reveals mildly impaired left ventricular systolic function. 3. Acute renal failure. RECOMMENDATIONS: This patient's prognosis is very poor. We will start the patient on Cardizem drip to control the rate. The patient is currently getting dialysis to correct the fluid overload. MMODL / IJN: [id number] /
[2019-05-06 20:48] LABS: Glucose,Whole Blood 160 mg/dL (75-99)
[2019-05-06] MEDS: MONTELUKAST 10 MG TAB PO SCH (21:20)
[2019-05-06] MEDS: SENNOSIDES-DOCUSATE SODIUM 1 EACH TAB PO SCH (21:20)
[2019-05-06] MEDS: ATORVASTATIN 40 MG TAB PO SCH (21:20)
--- NOTE | 2019-05-06 22:19 | P.PN ---
Subjective Progress Note Date: 05/06/19 Pleasant 63-year-old female is a complex past medical history regarding her breast carcinoma. 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 Because of increasing pain and neurological difficulties she was evaluated was treated with radiation therapy to the cervical and thoracic spine . She Developed extensive radiation dermatitis and esophagitis. She was hospitalized [facility] and with treatment of the skin and esophagitis she had marked improvement. She has had a subsequent hospitalization at the outside facility where she had a urinary tract infection. She now presents to Hospital feeling poorly with evidence significant weakness with fever 102, chills and evidence of new abnormality. Chest x-ray acute renal failure and generalized malaise. With fluid resuscitation antibiotic therapy she started to feel somewhat better. Cultures are in process with concerns to urinary tract infection as a source of the current bout of sepsis. 05/02/2017 the patient's renal failure continues but her fevers improved. With the elevated vancomycin level this is put on hold. 05/04/2019 patient continues to have increasing creatinine, and feels poorly with her acute renal failure. She is having some shakiness to her arms and legs, weakness and poor appetite. However is not having nausea or emesis. All the food does taste poorly. She's had some increased difficulties with her oral cavity possibly thrush. 05/05/2019 the patient has had a significant worsening of her status overnight. She became profoundly short of breath and required transfusions and its care unit where she's now been placed on BiPAP has been titrated down to 50% now she is feeling considerably better bacillin well. She's having no chest pains. She was seen by cardiology there is evidence of volume overload as well as worsening of her aortic stenosis and regurgitation and pulmonary hypertension. The the treatment of failure has stabilized with no further increase of her creatinine. Vancomycin level is still therapeutic but falling. 05/06/2019 patient's volume status became more problematic, more short of breath She's been seen by the nephrology and dialysis is initiated. Approximately 2- 1/2 L of fluid have been removed and she is now less short of breath but emotional upset. It is her 64th birthday. Objective - Vital Signs Vital signs: Vital Signs Temp 98.1 F 05/06/19 20:00 Pulse 93 05/06/19 21:00 Resp 29 H 05/06/19 21:00 BP 117/59 05/06/19 21:00 Pulse Ox 96 05/06/19 21:00 Intake & Output 05/06/19 05/06/19 05/07/19 06:59 18:59 06:59 Intake Total 605 325.5 108.167 Output Total 1005 3450 33 Balance -400 -3124.5 75.167 Weight 153.7 kg Intake: IV 130 210 30 0.9 NS 130 110 30 Cefepime 2 gm In Sodium 100 Chloride 0.9% 100 ml @ 200 mls/hr IVPB Q12H [facility] Rx#:[id number] Intake, IV Titration 100 115.5 78.167 Amount Diltiazem 125 mg In 41.5 Sodium Chloride 0.9% 100 ml @ Per Protocol IV .Q0M [facility] Rx#:[id number] Furosemide 100 mg In 100 74 78.167 Sodium Chloride 0.9% 90 ml @ 10 MG/HR 10 mls/hr IV .Q10H [facility] Rx#: [id number] Oral 375 Output: Urine 1005 450 33 Hemodialysis 3000 Other: Voiding Method Indwelling Catheter Indwelling Catheter Indwelling Catheter - Exam 63-year-old woman presents to Hospital feeling poorly now with a significant worsening shortness of breath, BiPAP in place but does relate Lesher breath since dialysis has started. HEENT: Anicteric conjunctiva are pink and moist nasal mucosa grossly intact without significant lesions, and the very posterior aspect of the pharynx is now some mild white coating consistent with early thrush. Neck: The neck is supple without significant lymphadenopathy or thyromegaly. Lungs: There is symmetrical air entry with coarse crackles and wheezing to the lung chiang basilar crackles are heard Heart: Regular with the 2/6 systolic murmur left sternal border Abdomen: Obese, Positive bowel sounds soft minimal tenderness is noted in the right upper quadrant without palpable masses or organomegaly. There was no guarding or rebound. Extremities: The upper extremities have excellent pulses they are symmetric, no significant petechiae or telangiectasia. No splinter hemorrhages were noted. The lower extremities have trace edema pulses 2+ and symmetric Neuro: Awake alert oriented to person place and time. There are no acute new gross focal sensory motor deficits. Skin reveals evidence of the resolution of the radiation dermatitis does have some residual color change but there is nothing ulcer. She is not having any further difficulties with the esophagitis either although does have a bit of dry mouth and throat. - Labs CBC & Chem 7: 05/06/19 04:06 05/06/19 04:06 Labs: Abnormal Lab Results - Last 24 Hours (Table) 05/06/19 05/06/19 05/06/19 Range/Units 04:06 04:06 06:44 RBC 2.33 L (3.80-5.40) m/uL Hgb 7.7 L (11.4-16.0) gm/dL Hct 23.5 L (34.0-46.0) % MCV 100.7 H (80.0-100.0) fL RDW 16.9 H (11.5-15.5) % Plt Count 65 L (150-450) k/uL Lymphocytes # 0.1 L (1.0-4.8) k/uL Sodium 133 L (137-145) mmol/L Carbon Dioxide 17 L (22-30) mmol/L BUN 77 H (7-17) mg/dL Creatinine 5.62 H (0.52-1.04) mg/dL Glucose 143 H (74-99) mg/dL POC Glucose (mg/dL) 162 H (75-99) mg/dL Calcium 6.8 L (8.4-10.2) mg/dL 05/06/19 05/06/19 05/06/19 Range/Units 12:28 17:15 20:37 RBC (3.80-5.40) m/uL Hgb (11.4-16.0) gm/dL Hct (34.0-46.0) % MCV (80.0-100.0) fL RDW (11.5-15.5) % Plt Count (150-450) k/uL Lymphocytes # (1.0-4.8) k/uL Sodium (137-145) mmol/L Carbon Dioxide (22-30) mmol/L BUN (7-17) mg/dL Creatinine (0.52-1.04) mg/dL Glucose (74-99) mg/dL POC Glucose (mg/dL) 180 H 164 H 160 H (75-99) mg/dL Calcium (8.4-10.2) mg/dL Microbiology - Last 24 Hours (Table) 05/05/19 04:39 Blood Culture - Preliminary Blood No Growth after 24 hours 05/05/19 04:12 Blood Culture - Preliminary Blood No Growth after 24 hours 05/03/19 23:18 Blood Culture - Preliminary Blood No Growth after 48 hours Laboratory Results WBC 4.3 k/uL (3.8-10.6) 05/06/19 04:06 RBC 2.33 m/uL (3.80-5.40) L 05/06/19 04:06 Hgb 7.7 gm/dL (11.4-16.0) L 05/06/19 04:06 Hct 23.5 % (34.0-46.0) L 05/06/19 04:06 MCV 100.7 fL (80.0-100.0) H 05/06/19 04:06 MCH 32.9 pg (25.0-35.0) 05/06/19 04:06 MCHC 32.7 g/dL (31.0-37.0) 05/06/19 04:06 RDW 16.9 % (11.5-15.5) H 05/06/19 04:06 Plt Count 65 k/uL (150-450) L 05/06/19 04:06 Neutrophils % 92 % 05/06/19 04:06 Neutrophils % (Manual) 86 % 05/02/19 06:57 Band Neutrophils % 2 % 05/02/19 06:57 Lymphocytes % 2 % 05/06/19 04:06 Lymphocytes % (Manual) 6 % 05/02/19 06:57 Monocytes % 3 % 05/06/19 04:06 Monocytes % (Manual) 4 % 05/02/19 06:57 Eosinophils % 1 % 05/06/19 04:06 Eosinophils % (Manual) 2 % 05/02/19 06:57 Basophils % 0 % 05/06/19 04:06 Neutrophils # 4.0 k/uL (1.3-7.7) 05/06/19 04:06 Neutrophils # (Manual) 2.00 k/uL (1.3-7.7) 05/02/19 06:57 Lymphocytes # 0.1 k/uL (1.0-4.8) L 05/06/19 04:06 Lymphocytes # (Manual) 0.14 k/uL (1.0-4.8) L 05/02/19 06:57 Monocytes # 0.2 k/uL (0-1.0) 05/06/19 04:06 Monocytes # (Manual) 0.09 k/uL (0-1.0) 05/02/19 06:57 Eosinophils # 0.0 k/uL (0-0.7) 05/06/19 04:06 Eosinophils # (Manual) 0.05 k/uL (0-0.7) 05/02/19 06:57 Basophils # 0.0 k/uL (0-0.2) 05/06/19 04:06 Nucleated RBCs 0 /100 WBC (0-0) 05/02/19 06:57 Manual Slide Review Performed 05/03/19 08:24 Large Platelets Present 04/30/19 11:43 Hypochromasia Slight 05/04/19 08:08 Poikilocytosis (manual Present 05/02/19 06:57 Anisocytosis Slight 05/06/19 04:06 Anisocytosis (manual) Present 05/01/19 07:16 Macrocytosis Slight 05/06/19 04:06 Rouleaux Present 05/02/19 06:57 PT 10.7 sec (9.0-12.0) 05/01/19 12:37 INR 1.0 (<1.2) 05/01/19 12:37 APTT 26.3 sec (22.0-30.0) 05/01/19 12:37 Sodium 133 mmol/L (137-145) L 05/06/19 04:06 Potassium 4.3 mmol/L (3.5-5.1) 05/06/19 04:06 Chloride 102 mmol/L (98-107) 05/06/19 04:06 Carbon Dioxide 17 mmol/L (22-30) L 05/06/19 04:06 Anion Gap 14 mmol/L 05/06/19 04:06 BUN 77 mg/dL (7-17) H 05/06/19 04:06 Creatinine 5.62 mg/dL (0.52-1.04) H 05/06/19 04:06 Est GFR (CKD-EPI)AfAm 9 (>60 ml/min/1.73 sqM) 05/06/19 04:06 Est GFR (CKD-EPI)NonAf 7 (>60 ml/min/1.73 sqM) 05/06/19 04:06 Glucose 143 mg/dL (74-99) H 05/06/19 04:06 POC Glucose (mg/dL) 160 mg/dL (75-99) H 05/06/19 20:37 POC Glu [employer] ID María Sauer 05/06/19 20:37 Plasma Lactic Acid Jon 0.9 mmol/L (0.7-2.0) 05/05/19 08:15 Calcium 6.8 mg/dL (8.4-10.2) L 05/06/19 04:06 Phosphorus 4.6 mg/dL (2.5-4.5) H 05/05/19 00:23 Magnesium 2.2 mg/dL (1.6-2.3) 05/05/19 04:12 Total Bilirubin 0.6 mg/dL (0.2-1.3) 05/05/19 00:23 AST 64 U/L (14-36) H 05/05/19 00:23 ALT 44 U/L (9-52) 05/05/19 00:23 Alkaline Phosphatase 96 U/L (38-126) 05/05/19 00:23 NT-Pro-B Natriuret Pep 97579 pg/mL 05/05/19 00:23 Total Protein 6.7 g/dL (6.3-8.2) 05/05/19 00:23 Albumin 3.2 g/dL (3.5-5.0) L 05/05/19 00:23 Urine Color Dark Brown 04/30/19 13:00 Urine Appearance Turbid (Clear) H 04/30/19 13:00 Urine pH 5.0 (5.0-8.0) 04/30/19 13:00 Ur Specific [place] 1.016 (1.001-1.035) 04/30/19 13:00 Urine Protein 2+ (Negative) H 04/30/19 13:00 Urine Glucose (UA) Negative (Negative) 04/30/19 13:00 Urine Ketones Negative (Negative) 04/30/19 13:00 Urine Blood Large (Negative) H 04/30/19 13:00 Urine Nitrite Negative (Negative) 04/30/19 13:00 Urine Bilirubin Negative (Negative) 04/30/19 13:00 Urine Urobilinogen 4.0 mg/dL (<2.0) 04/30/19 13:00 Ur Leukocyte Esterase Large (Negative) H 04/30/19 13:00 Urine RBC >182 /hpf (0-5) H 04/30/19 13:00 Urine WBC 40 /hpf (0-5) H 04/30/19 13:00 Urine WBC Clumps Occasional /hpf (None) H 04/30/19 13:00 Ur Squamous Epith Cells 13 /hpf (0-4) H 04/30/19 13:00 Urine Bacteria Moderate /hpf (None) H 04/30/19 13:00 Urine Mucus Occasional /hpf (None) H 04/30/19 13:00 Random Vancomycin 16.4 ug/mL 05/06/19 04:06 Serum ANNE-MARIE Interpret SEE NOTE 05/03/19 23:18 LOUANN Screen NEGATIVE (NEGATIVE) 05/03/19 23:18 c-ANCA <1:20 Titer (<1:20) 05/03/19 23:18 p-ANCA <1:20 Titer (<1:20) 05/03/19 23:18 Double Strand DNA Ab NEGATIVE (NEGATIVE) 05/03/19 23:18 Anti-DNA Ab Interp <1.0 IU/mL 05/03/19 23:18 Complement C3 117.0 mg/dL (80.0-207.0) 05/03/19 23:18 Complement C4 16.4 mg/dL (10.0-53.0) 05/03/19 23:18 Hepatitis A IgM Ab Non-Reactive (Non-Reactive) 05/03/19 23:18 Hep Bs Antigen Non-Reactive (Non-Reactive) 05/06/19 14:00 Hep Bs Antibody Non-Reactive (Non-Reactive) 05/05/19 14:00 Hep Bs Antibody, Quant 3.5 mIU/mL 05/05/19 14:00 Hep B Core Total Ab Non-Reactive (Non-Reactive) 05/06/19 14:00 Hep B Core IgM Ab Non-Reactive (Non-Reactive) 05/03/19 23:18 Hep C IgG Ab Non-Reactive (Non-Reactive) 05/03/19 23:18 Influenza Type A RNA Not Detected (Not Detectd) 04/30/19 13:04 Influenza Type B (PCR) Not Detected (Not Detectd) 04/30/19 13:04 Microbiology 05/05/19 04:39 Blood Blood Culture - Preliminary No Growth after 24 hours 05/05/19 04:12 Blood Blood Culture - Preliminary No Growth after 24 hours 05/03/19 23:18 Blood Blood Culture - Preliminary No Growth after 48 hours 04/30/19 11:43 Blood Blood Culture Gram Stain - Final 04/30/19 11:43 Blood Blood Culture - Final Staphylococcus lugdunenisis 05/02/19 09:21 Sputum Gram Stain - Final 05/02/19 09:21 Sputum Sputum Culture - Final Mary albicans 04/30/19 13:00 Urine,Voided Urine Culture - Final Enterococcus faecalis 04/30/19 11:43 Blood Blood Culture - Final Assessment and Plan (1) Acute renal failure Current Visit: Yes Status: Acute Priority: High Code(s): N17.9 - ACUTE KIDNEY FAILURE, UNSPECIFIED SNOMED Code(s): 55432344 (2) Gram-positive cocci bacteremia Current Visit: No Status: Acute Code(s): R78.81 - BACTEREMIA SNOMED Code(s): 356427160781 (3) Metastatic breast carcinoma Current Visit: Yes Status: Chronic Priority: Medium Code(s): C50.919 - MALIGNANT NEOPLASM OF UNSP SITE OF UNSPECIFIED FEMALE BREAST SNOMED Code(s): 044364259 (4) Urinary tract infection Narrative/Plan: 63-year-old woman who has a history of the metastaticBreast carcinoma with evidence of significant metastasis to the skeleton as well as liver metastasis presents to Hospital feeling poorly with another bout of fever chills malaise occurring after her recent treatment with chemotherapy. Been seen by her oncology team and chemotherapy is now on hold. He does not have severe serge tropenia and is being monitored. There is evidence of urinary tract infection is likely etiology her current sepsis and laboratories: Positive blood culture with gram-positive cocci. She's had several prior blood cultures with gram- positive cocci that has been staphylococcus ludegensis, which is a coagulase- negative staph and since the patient does not have an indwelling catheter has not been thought to be a significant pathogen. Somewhat concerning if it continues to be found. Urine culture is showing evidence of gram-positive cocci and constantly vancomycin therapy is being utilized as well as Rocephin until there is further data. She has developed acute renal failure and consequently very close monitoring with vancomycin therapy is indicated we'll try to limit the dosing as much as possible. Nephrology will be seeing her for her acute increase of her creatinine to 3.46. 2-D echocardiogram has been requested and she shall be monitored. 05/02/2018 dear culture now shows evidence of enterococcus blood cultures are growing coagulase negative staph. Antibiotic therapy will now be D escalated. The Rocephin and vancomycin are discontinued. Vancomycin level currently is elevated. Once his level falls to less than 15 will then be able to initiate alternative antibiotic therapy for the treatment of the enterococcus. If blood cultures remain negative would not need further IV antibiotic therapy. 05/04/2019 the patient continues to feel very poorly with evidence of her acute renal failure the toxicity associated with that. The vancomycin level has dropped to 23 and likely will be subtherapeutic and the next day or so. At that time with initiate by therapy to complete the treatment of her enterococcal infection. Nephrology is following and continue to contemplate the need for renal replacement therapy. The patient's blood cultures are being repeated to ensure that the foot was negative staph is not persistent, is noted he has been seen on several occasions in the past, but she does not have any indwelling catheters. 05/05/2019 the patient has had a significant worsening of her status development of respiratory failure requiring BiPAP therapy with evidence of congestive heart failure and worsening underlying cardiac function. Aortic stenosis and regurgitation symptoms considerably worse in her pulmonary hypertension is worse. With diuresis she is having less short of breath her BiPAP as tolerated 50% The vancomycin level will likely come subtherapeutic tomorrow and that will consider alteration of antibiotic therapy vancomycin is being utilized for the enterococcal urinary tract infection 05/06/2019 patient does feel slightly better with her hemodialysis it is started today. 2 half liters of fluid removed the profound shortness of breath is star ting to improve. She will have dialysis again in the morning. Vancomycin level is being followed when subtherapeutic we'll need to consider if she needs further antibiotic therapy for her enterococcal urinary tract infection. She's had the multiple blood cultures with Staphylococcus ludigenesis overtime, she does not have an indwelling port. Most recent echocardiogram does not reveal evidence of endocarditis she does have significant valvular heart disease. When she is further improved may need a JERAMY. Current Visit: Yes Status: Acute Code(s): N39.0 - URINARY TRACT INFECTION, SITE NOT SPECIFIED SNOMED Code(s): 54047971
[2019-05-06] MEDS: IPRATROPIUM-ALBUTEROL 3 ML NEB INHALATION PRN (23:42)
[2019-05-07] MEDS: CLOTRIMAZOLE TROCHE 10 MG TROCHE MUCOUS MEM SCH ×5 (01:18→21:58)
[2019-05-07] MEDS: methylPREDNISolone SOD SUCCI 40 MG/ML 1 ML VIAL IV SCH ×4 (01:23→17:04)
[2019-05-07] MEDS: FUROSEMIDE 100 MG in SODIUM CHLORIDE 0.9% 90 ML IV SCH ×2 (03:09→11:39)
[2019-05-07] MEDS: IPRATROPIUM-ALBUTEROL 3 ML NEB INHALATION PRN (03:33)
[2019-05-07 05:09] LABS: Anisocytosis Slight; HCT 25.1 % (34.0-46.0); HGB 8.1 gm/dL (11.4-16.0); MCHC 32.2 g/dL (31.0-37.0); MCV 102.5 fL (80.0-100.0); Macrocytosis Moderate; Mean Platelet Volume 9.4; RBC 2.45 m/uL (3.80-5.40); WBC 4.7 k/uL (3.8-10.6)
[2019-05-07 05:10] LABS: Platelet Count 74 k/uL (150-450)
[2019-05-07 05:26] LABS: Calcium 7.4 mg/dL (8.4-10.2); Potassium 4.1 mmol/L (3.5-5.1)
[2019-05-07] MEDS: INSULIN ASPART (NovoLOG) 100 UNIT/ML VIAL SQ SCH ×4 (06:53→22:07)
[2019-05-07 06:54] LABS: Glucose,Whole Blood 181 mg/dL (75-99)
[2019-05-07] MEDS: IPRATROPIUM-ALBUTEROL 3 ML NEB INHALATION SCH ×4 (07:49→19:23)
[2019-05-07] MEDS: BUDESONIDE 1 MG/2 ML NEBU INHALATION SCH ×2 (07:49→19:23)
[2019-05-07] MEDS: SUCRALFATE 1 GM TAB PO SCH ×4 (08:01→21:58)
[2019-05-07] MEDS: PANTOPRAZOLE 40 MG TABLET PO SCH (08:01)
--- NOTE | 2019-05-07 08:14 | XR ---
EXAMINATION TYPE: XR chest 1V DATE OF EXAM: 05/07/2019 COMPARISON: 05/06/2019 HISTORY: 64-year-old female with pneumonia and shortness of breath TECHNIQUE: Single frontal view of the chest is obtained. FINDINGS: Heart mildly enlarged. Diffuse interstitial patchy/confluent airspace opacity persists. Over aeration is similar to prior exam. IMPRESSION: Mild cardiomegaly. Diffuse interstitial and airspace disease relatively similar to prior exam.
[2019-05-07] MEDS: GABAPENTIN 300 MG CAP PO SCH (09:52)
[2019-05-07] MEDS ORDERED: LORazepam 2 MG/ML INJ IV PRN (09:52)
[2019-05-07] MEDS: ASPIRIN 81 MG PO SCH (09:52)
[2019-05-07] MEDS: SODIUM BICARBONATE TAB 650 MG TAB PO SCH ×2 (09:53→21:58)
[2019-05-07] MEDS: FLUTICASONE 50MCG/SPRAY NASAL 16GM EA NOSTRIL SCH (09:53)
[2019-05-07] MEDS: DILTIAZEM CD 180 MG CAP.ER.24H PO SCH (09:53)
[2019-05-07] MEDS: APIXABAN 5 MG TAB PO SCH ×2 (09:53→21:58)
[2019-05-07] MEDS: FUROSEMIDE 10 MG/ML 10 ML VIAL IV SCH ×2 (09:55→17:02)
--- NOTE | 2019-05-07 10:34 | CONS ---
CONSULTATION This patient is 63-year-old female. I was consulted for placement of urgent dialysis catheter. The patient has a history of acute chronic renal failure. The patient also has a history of hypertension, history of breast cancer with mets. The patient was seen in the room. Patient is on BiPAP. PHYSICAL EXAMINATION: Neck is supple. Chest has crackles bilateral. Abdomen is protuberant. The patient has super obesity. PLAN: Placement of the dialysis catheter. MMODL / IJN: [id number] /
--- NOTE | 2019-05-07 11:40 | P.PN ---
Subjective Progress Note Date: 05/07/19 Principal diagnosis: Acute sepsis, acute urinary tract infection, gram-positive bacteremia, acute renal failure I was asked to evaluate this patient for a right upper lobe pneumonia. The patient was also be more short of breath yesterday and his chest x-ray was ordered and showed a questionable infiltrate in the right upper lobe and pneumonia was suspected. Note that the patient is morbidly obese with a BMI 59.8. The patient also has history of metastatic breast cancer for which she has undergone radiation therapy to her cervical spine that was complicated by radiation-induced esophagitis and difficulties in swallowing. She has been on systemic treatment with a combination of Ibrance and Fosladex. The patient presented to the hospital because of pancytopenia and infection and this do not to be a UTI with Enterococcus faecalis and blood culture was positive with Staphylococcus Lugdunenisis , which is a coagulase-negative staph and the patient was covered with vancomycin per IDs recommendations. Time of my evaluation, the patient was afebrile. Pulse ox is 96% on room air. No significant tachycardia. No chest pain. No pleurisy. No hemoptysis. She has some chronic swelling in lower extremities bilaterally. Moist recent white count is at 1.9. Platelet count is at 75. The patient also had developed an acute kidney injury. As the patient had a normal kidney function on 04/16/2019. Creatinine is up to 4.8 and this is probably related to an ATN induced by sepsis and further complicated by possible vancomycin-induced toxicity as the patient's serum vancomycin level was quite elevated with a vancomycin level of 37.8 from May 022018 is down trending. No evidence of any hydronephrosis on the renal ultrasound. Patient was reevaluated today on 05/05/2019, patient remains in the intensive care unit, quite short of breath, intermittent episodes of cough and hemoptysis. No fever, worsening chest x-ray with bilateral interstitial edema or infiltrates, poor urine output, hence the patient was switched from IV Lasix to Lasix drip at 10 mg per hour. Worsening renal functioning and acute kidney injury, patient may require hemodialysis. Being followed by nephrology. WBC count today is 3.1 hemoglobin is 7.8 electrolytes are normal however her bicarb is low at 19 BUN is up to 63 creatinine is up to 5.25. Her creatinine on admission 5 days ago was 2.69. Presently on cefepime, off vancomycin. Cultures so far have shown Enterococcus faecalis in the urine, and Staphylococcus lugdunenesis in the blood. Those are being addressed by Dr. Zimmerman on the case, patient is requiring 5 L nasal cannula, her O2 saturation is marginal, however intermittently has been on BiPAP. And that seems to be helping much better. Chest x-ray is worrisome, hence I recommended patient be placed on Lasix drip at 10 mg per hour. And discontinued Lasix at 60 mg IV push every 6 hours. Patient was reevaluated today on 05/06/2019, patient remains in the intensive care unit, almost BiPAP dependent. Remains on Lasix drip at 10 mg per hour, and urine output seems to be in the range of 30-50 mL per hour. Chest x-ray continues to show interstitial infiltrates/edema bilaterally. Renal functioning is a bit worse, creatinine is up to 5.62. Baseline creatinine on admission was 2.69. Patient remains on 50% BiPAP, and she desaturates significantly off BiPAP. Continues to have cough and wheezing. And significantly abnormal chest x-ray. Her daughter is at bedside today, and updated on her condition and patient may end up eventually requiring intubation and mechanical ventilation, but at this point we will try to manage with BiPAP and with bronchodilators, steroids, antibiotics, and diuretics. All her cultures were reviewed again, patient is being followed by Dr. Zimmerman. WBC count today is 4.3 hemoglobin is 7.7 and electrolytes are normal BUN is 77 creatinine is 5.62. Patient was reevaluated today on 05/07/2019, patient remains in the ICU, remains on BiPAP, received hemodialysis and ultrafiltration yesterday, and 3 L of fluids were removed. After the hemodialysis, her urine output was 0, hence her Lasix infusion was discontinued. Clinically the patient felt better, breathing a bit easier, chest x-ray is basically about the same continues to show interstitial infiltrates/edema. Not much improvement noted on the chest x-ray, but clinically the patient is feeling better. WBC count today is 4.7 hemoglobin is 8.1, electrodes are normal BUN is 73 creatinine is 5.14. Objective - Vital Signs Vital signs: Vital Signs Temp 97.9 F 05/07/19 10:59 Pulse 76 05/07/19 11:00 Resp 19 05/07/19 11:00 BP 137/64 09/11/19 11:00 Pulse Ox 94 L 05/07/19 11:00 Intake & Output 05/06/19 05/07/19 05/07/19 18:59 06:59 18:59 Intake Total 325.5 746.667 10 Output Total 3450 153 716 Balance -3124.5 593.667 -706 Weight 152.7 kg Intake: IV 210 130 10 0.9 NS 110 130 10 Cefepime 2 gm In Sodium 100 Chloride 0.9% 100 ml @ 200 mls/hr IVPB Q12H [facility] Rx#:[id number] Intake, IV Titration 115.5 136.667 Amount Diltiazem 125 mg In 41.5 58.5 Sodium Chloride 0.9% 100 ml @ Per Protocol IV .Q0M [facility] Rx#:[id number] Furosemide 100 mg In 74 78.167 Sodium Chloride 0.9% 90 ml @ 10 MG/HR 10 mls/hr IV .Q10H [facility] Rx#: [id number] Oral 480 Output: Urine 450 153 10 Hemodialysis 3000 706 Other: Voiding Method Indwelling Catheter Indwelling Catheter Indwelling Catheter - Exam Physical Exam: Revealed an obese 63-year-old female, remains on BiPAP, comfortable on BiPAP, but noted to be short of breath off BiPAP. HEENT: Neck supple, no neck masses, no JVD. No adenopathy. HEENT:[Neck is supple.] [No neck masses.] [No thyromegaly.] [No JVD.] Chest: [Symmetrical chest expansion, diffuse crackles and rhonchi and wheezes bilaterally. No chest wall tenderness. Cardiac Exam: [Normal S1 and S2, no S3 gallop, no murmur.] Abdomen: [Obese, Soft, nontender, no megaly, no rebound, no guarding, normal bowel sounds.] Extremities: [No clubbing, 1+ bipedal edema, no cyanosis.] Good pulses bilaterally. Neurological Exam: Alert and oriented 3. [No focal neurologic deficit.] Lymphatics: No lymphadenopathy. Psychiatric: Normal mood affect and normal mental status examination. Skin: No rashes. - Labs CBC & Chem 7: 05/07/19 04:35 05/07/19 04:35 Labs: Abnormal Lab Results - Last 24 Hours (Table) 05/06/19 05/06/19 05/06/19 Range/Units 12:28 17:15 20:37 RBC (3.80-5.40) m/uL Hgb (11.4-16.0) gm/dL Hct (34.0-46.0) % MCV (80.0-100.0) fL RDW (11.5-15.5) % Plt Count (150-450) k/uL Sodium (137-145) mmol/L Carbon Dioxide (22-30) mmol/L BUN (7-17) mg/dL Creatinine (0.52-1.04) mg/dL Glucose (74-99) mg/dL POC Glucose (mg/dL) 180 H 164 H 160 H (75-99) mg/dL Calcium (8.4-10.2) mg/dL 05/07/19 05/07/19 05/07/19 Range/Units 04:35 04:35 06:42 RBC 2.45 L (3.80-5.40) m/uL Hgb 8.1 L (11.4-16.0) gm/dL Hct 25.1 L (34.0-46.0) % MCV 102.5 H (80.0-100.0) fL RDW 17.0 H (11.5-15.5) % Plt Count 74 L (150-450) k/uL Sodium 135 L (137-145) mmol/L Carbon Dioxide 19 L (22-30) mmol/L BUN 73 H (7-17) mg/dL Creatinine 5.14 H (0.52-1.04) mg/dL Glucose 156 H (74-99) mg/dL POC Glucose (mg/dL) 181 H (75-99) mg/dL Calcium 7.4 L (8.4-10.2) mg/dL Microbiology - Last 24 Hours (Table) 05/05/19 04:39 Blood Culture - Preliminary Blood No Growth after 48 hours 05/05/19 04:12 Blood Culture - Preliminary Blood No Growth after 48 hours 05/03/19 23:18 Blood Culture - Preliminary Blood No Growth after 72 hours Assessment and Plan Assessment: Impression: 1 shortness of breath with acute hypoxic respiratory failure secondary to sepsis, urinary tract infection, anemia, and suspect pulmonary edema which is possibly cardiogenic or noncardiogenic in nature. She does have elevated BNP level, echocardiogram showed mildly impaired ejection fraction 45%, severe aortic stenosis is also noted on the echocardiogram. Peak gradient across the aortic valve is 76 with a mean of 43.8 and her urine output is marginal in spite of Lasix drip at 10 mg per hour. Slight improvement with dialysis, hence we'll continue hemodialysis. The electronic organ technician is having issues with the catheter, and that will be addressed by the vascular surgeon who placed the catheter. 2 acute kidney injury secondary to ATN, possible vancomycin nephrotoxicity. 3 gram-positive bacteremia being addressed by infectious disease on the case. 4 Enterococcus faecalis urinary tract infection, being addressed by infectious disease. 5 metastatic breast cancer patient has been on chemotherapy until recently. 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 8 chemotherapy induced pancytopenia 9 metabolic acidosis secondary to sepsis and acute kidney injury. Recommendation: Continue present supportive care measures including BiPAP, high flow O2, hemodialysis/ultrafiltration, diuretics, antibiotics, steroids, bronchodilators, GI and DVT prophylaxis, nutritional support, overall prognosis remains basically poor and guarded, patient will remain in the ICU, and we'll continue to follow closely. Again I still have a feeling that the patient may e nd up requiring intubation and mechanical ventilation, hoping we don't have to do this and the patient continues to improve with hemodialysis and treatment as noted above. We'll continue to follow. Time with Patient: Less than 30
[2019-05-07] MEDS: CEFEPIME 2 GM in SODIUM CHLORIDE 0.9% 100 ML IVPB SCH (11:53)
[2019-05-07 12:00] LABS: Glucose,Whole Blood 177 mg/dL (75-99)
--- NOTE | 2019-05-07 12:25 | PN ---
PROGRESS NOTE This patient has been treated for sepsis and acute renal failure. Patient underwent dialysis, about 3 L of the fluid was removed. She remains comfortable. Patient converted to the normal sinus rhythm. Her Cardizem is discontinued. Patient's chest x- ray still shows bilateral lung infiltrates suggestive of either cardiogenic pulmonary edema or ARDS. We will treat the patient with IV Cardizem p.r.n. for the atrial fib with a rapid rate and we will now see the patient p.r.n. MARK / MARN: [id number] /
--- NOTE | 2019-05-07 14:10 | PN ---
PROGRESS NOTE Patient is seen for followup for acute kidney injury. Patient was started on hemodialysis yesterday, secondary to severe fluid overload. She had about 3 L of ultrafiltration. Her urine output has dropped since dialysis yesterday. This morning, catheter was not working well and Vascular Surgery has been consulted to reposition the femoral catheter. Patient did receive a dose of Eliquis last night and this morning. PHYSICAL EXAMINATION: Blood pressure this morning was 136/68, heart rate of 87 per minute. Patient is afebrile. Examination of the heart S1, S2. Examination of the lungs, bilateral breath sounds are heard. Abdomen is soft, nontender. Morbidly obese. Examination of the lower extremities shows edema 2+ bilaterally. RESEARCH MANAGER exam grossly intact. LABS: Show sodium 135, potassium 4.1, BUN 73, serum creatinine 5.14, hemoglobin 8.1 g/dL. ASSESSMENT: 1. Acute kidney injury, acute tubular necrosis AND secondary to vancomycin toxicity, started on hemodialysis, status post first treatment yesterday. Patient will receive her second treatment today. Her femoral catheter was not working well. Vascular Surgery has been reconsulted. She will be dialyzed today and then again in a.m. 2. Volume overload, slightly improved. Will maintain patient on IV Lasix. 3. Metabolic acidosis. Maintained on sodium bicarb. 4. Anemia, multifactorial. No active bleeding noted. 5. Staphylococcus bacteremia. Maintained on antibiotics. Vancomycin is discontinued. 6. Metastatic breast cancer. 7. Atrial fibrillation with controlled ventricular response currently. 8. Enterococcus faecalis urinary tract infection. PLAN: Repeat hemodialysis today and then again in a.m. Plan for [facility] down the road. MMODL / IJN: [id number] /
--- NOTE | 2019-05-07 14:40 | PN ---
PROGRESS NOTE DATE OF SERVICE: 05/07/2019 This is a 64-year-old woman who was admitted with acute right lower lobe pneumonia with possibly neutropenic sepsis, is being closely monitored in the ICU at this time. The patient is started on new onset hemodialysis. Chest x-ray showed evidence of persistent pneumonia or ARDS. Patient juares;;closely monitored multiple consultants following the patient closely at this time. The patient also had atrial fibrillation with fast. Cardiology saw for the patient closely. A 2D echo with Doppler also showed moderate to severe tricuspid valve regurgitation and possible severe aortic stenosis and moderate aortic regurgitation also the patient closely monitored. Patient is on BiPAP for a hypoxia at this time. Patient closely monitored in ICU. PAST MEDICAL HISTORY: Reviewed. REVIEW OF SYSTEMS: CARDIOVASCULAR: No angina or palpitations. RESPIRATORY: As mentioned earlier. GI: As mentioned earlier. NERVOUS SYSTEMS: No focal deficits. CURRENT MEDICATIONS ARE: 1. Hayden 5 mg q.4 p.r.n. 2. DuoNeb q.i.d. and p.r.n. 3. Xanax 0.5 t.i.d. 4. Eliquis 5 mg p.o. b.i.d. 5. Aspirin 160 mg p.o. 6. Lipitor 40 mg q.h.s. 7. Pulmicort 1 mg b.i.d. 8. Cefepime 2 g IV daily. 9. Mycelex and Cardizem CD 180 mg p.o. daily. 10.Lasix 60 mg IV q.i.d. 11.Neurontin next NovoLog. 12.Solu-Medrol 40 IV q.8h. 13.Singulair. Protonix MiraLAX Senokot. Sodium bicarb Carafate doses reviewed. PHYSICAL EXAM: Patient is alert, oriented x2. Pulse is 86, irregular. Blood pressure 120/70, respiration 20, temperature 97.4, pulse ox 98% on BiPAP settings are noted skin: Conjunctivae normal. Oral mucosa moist neck is no jugular venous distention. No lymph node enlargement cardiovascular systems respiration the bases bilateral scattered rhonchi expiratory wheezing also present. ABDOMEN: Soft, obese, nontender. No mass. LEGS bilateral leg edema nervous system diffusely weak. LAB: WBC 4.2, hemoglobin is 8.1, sodium 130, potassium 4.1 creatinine is 5.1. For assessment. 1. Acute right lower lobe pneumonia with possibly neutropenic sepsis present on admission. 2. Acute renal failure acute tubular necrosis multifactorial with prerenal factors, worsening started on new onset hemodialysis. 3. Closely fluid overload, CHF acute exacerbation acute on chronic systolic dysfunction ejection fraction 40-50 percent with severe aortic stenosis, moderate to severe aortic regurgitation and mild to moderate tricuspid regurgitation. 4. Atrial fibrillation with fast ventricular rate. 5. Possibly ARDS. 6. Possible hypoxic respiratory failure on BiPAP secondary to above. 7. Vancomycin history undergo Enterococcus faecalis from the urine culture. 8. Mary albicans in the sputum. 9. Pancytopenia secondary to chemotherapy. 10.Carcinoma of breast with metastases to the spine and liver. 11.Hyponatremia. 12.Hypnotremia. 13.Use AST. 14.Obesity with body mass index of 10.8, hypertension next history of CVIS left-sided history History of breast surgery. 15.Remote history of nicotine dependence. RECOMMENDATIONS AND DISCUSSION: Recommend to continue current medications, management and symptomatic. I would recommend monitor recommend the recommend monitor fluid balance closely I would also recommend to monitor the oxygenation. Continue with antibiotics, follow closely multiple consultants Paroxysmal atrial fibrillation. Otherwise, continue to monitor. Guarded prognosis. Further recommendations to follow. MMODL / IJN: [id number] /
[2019-05-07 17:19] LABS: Glucose,Whole Blood 136 mg/dL (75-99)
--- NOTE | 2019-05-07 18:26 | P.PN ---
Subjective Progress Note Date: 05/07/19 Principal diagnosis: Fever, congestive heart failure, acute renal failure, metastatic breast cancer Patient is still requiring BiPAP ATC. No significant change in her breathing f rom yesterday, patient has no other complaints, denies fevers, vomiting, chest pain, palpitations, abdominal pain or cramping, she is very weak and becomes very short of breath with activity. Objective - Vital Signs Vital signs: Vital Signs Temp 97.9 F 05/07/19 10:59 Pulse 85 05/07/19 11:59 Resp 19 05/07/19 11:00 BP 137/64 05/07/19 11:00 Pulse Ox 94 L 05/07/19 11:00 Intake & Output 05/06/19 05/07/19 05/07/19 18:59 06:59 18:59 Intake Total 325.5 746.667 50 Output Total 3450 153 756 Balance -3124.5 593.667 -706 Weight 152.7 kg Intake: IV 210 130 50 0.9 NS 110 130 50 Cefepime 2 gm In Sodium 100 Chloride 0.9% 100 ml @ 200 mls/hr IVPB Q12H [facility] Rx#:[id number] Intake, IV Titration 115.5 136.667 Amount Diltiazem 125 mg In 41.5 58.5 Sodium Chloride 0.9% 100 ml @ Per Protocol IV .Q0M [facility] Rx#:[id number] Furosemide 100 mg In 74 78.167 Sodium Chloride 0.9% 90 ml @ 10 MG/HR 10 mls/hr IV .Q10H [facility] Rx#: [id number] Oral 480 Output: Urine 450 153 50 Hemodialysis 3000 706 Other: Voiding Method Indwelling Catheter Indwelling Catheter Indwelling Catheter - Constitutional General appearance: Present: cooperative, mild distress, obese - EENT Eyes: Present: anicteric sclerae, EOMI ENT: Present: hearing grossly normal - Respiratory Respiratory: bilateral: rhonchi (R>L), other (shallow respirations) - Cardiovascular Heart sounds: normal: S1, S2 Abnormal Heart Sounds: Absent: systolic murmur, diastolic murmur, rub, S3 Gallop, S4 Gallop, click, other - Peripheral edema leg Peripheral Edema: bilateral: Trace - Gastrointestinal General gastrointestinal: Present: normal bowel sounds, soft - Neurologic Neurologic: Present: CNII-XII intact - Musculoskeletal Musculoskeletal: Present: generalized weakness, strength equal bilaterally - Psychiatric Psychiatric: Present: A&O x's 3, appropriate affect, intact judgment & insight - Labs CBC & Chem 7: 05/07/19 04:35 05/07/19 04:35 Labs: Abnormal Lab Results - Last 24 Hours (Table) 05/06/19 05/06/19 05/06/19 Range/Units 12:28 17:15 20:37 RBC (3.80-5.40) m/uL Hgb (11.4-16.0) gm/dL Hct (34.0-46.0) % MCV (80.0-100.0) fL RDW (11.5-15.5) % Plt Count (150-450) k/uL Sodium (137-145) mmol/L Carbon Dioxide (22-30) mmol/L BUN (7-17) mg/dL Creatinine (0.52-1.04) mg/dL Glucose (74-99) mg/dL POC Glucose (mg/dL) 180 H 164 H 160 H (75-99) mg/dL Calcium (8.4-10.2) mg/dL 05/07/19 05/07/19 05/07/19 Range/Units 04:35 04:35 06:42 RBC 2.45 L (3.80-5.40) m/uL Hgb 8.1 L (11.4-16.0) gm/dL Hct 25.1 L (34.0-46.0) % MCV 102.5 H (80.0-100.0) fL RDW 17.0 H (11.5-15.5) % Plt Count 74 L (150-450) k/uL Sodium 135 L (137-145) mmol/L Carbon Dioxide 19 L (22-30) mmol/L BUN 73 H (7-17) mg/dL Creatinine 5.14 H (0.52-1.04) mg/dL Glucose 156 H (74-99) mg/dL POC Glucose (mg/dL) 181 H (75-99) mg/dL Calcium 7.4 L (8.4-10.2) mg/dL Microbiology - Last 24 Hours (Table) 05/05/19 04:39 Blood Culture - Preliminary Blood No Growth after 48 hours 05/05/19 04:12 Blood Culture - Preliminary Blood No Growth after 48 hours 05/03/19 23:18 Blood Culture - Preliminary Blood No Growth after 72 hours Assessment and Plan (1) Metastatic breast carcinoma Narrative/Plan: Patient recently had change in her hormonal therapy from oral to IM. She received loading dose of Faslodex 03/14 through 04/16. Her last dose of Xgeva was on April 16. Patient will be due for xgeva and Faslodex in about 2 weeks. Patient's oral Ibrance is on hold. This is a 21 day regimen every 28 days. Patient has had difficulties tolerating Ibrance treatment. Dose can be adjusted or, patient could be considered for a different therapy. Decisions will be made after her acute condition has been treated. Patient does have hormone receptor positive breast cancer that has numerous lines of therapy that pt has never even seen yet. Dr. Grande discussed with the patient that it is worth aggressive treatment of acute conditions, not associated with breast cancer. Current Visit: Yes Status: Chronic Priority: Medium Code(s): C50.919 - MALIGNANT NEOPLASM OF UNSP SITE OF UNSPECIFIED FEMALE BREAST SNOMED Code(s): 907055587 (2) Acute respiratory failure Narrative/Plan: Patient is on BiPAP in the intensive care unit being monitored closely by the Critical Care team. There is still discussion of possible intubation. With nursing present had a candid and deisy discussion with patient regarding CODE STATUS. After answering questions and reviewing scenarios, patient is a greeable to a full code with instructions. Patient will accept CPR, intubation and mechanical ventilation. At such time, if patient has not recovered, and she is needing to have a trach and PEG tube placed she verbalized she does not want this done. These instructions were documented under the CODE STATUS. Nurses going to review them with when he comes to visit patient. Current Visit: Yes Status: Acute Priority: High Code(s): J96.00 - ACUTE RESPIRATORY FAILURE, UNSP W HYPOXIA OR HYPERCAPNIA SNOMED Code(s): 87565464 (3) Fever Current Visit: Yes Status: Resolved Priority: High Code(s): R50.9 - FEVER, UNSPECIFIED SNOMED Code(s): 016182560 (4) Acute renal failure Narrative/Plan: BUN and creatinine are slightly better today. Nephrology following closely Current Visit: Yes Status: Acute Priority: High Code(s): N17.9 - ACUTE KIDNEY FAILURE, UNSPECIFIED SNOMED Code(s): 26069282
[2019-05-07] MEDS: MONTELUKAST 10 MG TAB PO SCH (21:58)
[2019-05-07] MEDS: ATORVASTATIN 40 MG TAB PO SCH (21:58)
[2019-05-07] MEDS: SENNOSIDES-DOCUSATE SODIUM 1 EACH TAB PO SCH (21:58)
[2019-05-07 22:05] LABS: Glucose,Whole Blood 156 mg/dL (75-99)
[2019-05-08] MEDS: FUROSEMIDE 10 MG/ML 10 ML VIAL IV SCH ×3 (00:42→18:11)
[2019-05-08] MEDS: CLOTRIMAZOLE TROCHE 10 MG TROCHE MUCOUS MEM SCH ×4 (00:42→18:10)
[2019-05-08] MEDS: methylPREDNISolone SOD SUCCI 40 MG/ML 1 ML VIAL IV SCH ×4 (00:42→18:12)
[2019-05-08 05:44] LABS: Anisocytosis Slight; Basophils % (A) 0 %; Eosinophils % (A) 1 %; HCT 25.9 % (34.0-46.0); HGB 8.4 gm/dL (11.4-16.0); Lymphocytes # (A) 0.2 k/uL (1.0-4.8); Lymphocytes % (A) 2 %; MCH 32.7 pg (25.0-35.0); MCHC 32.5 g/dL (31.0-37.0); MCV 100.7 fL (80.0-100.0); Macrocytosis Slight; Mean Platelet Volume 9.7; Monocytes # (A) 0.2 k/uL (0-1.0); Monocytes % (A) 4 %; Neutrophils # (A) 6.2 k/uL (1.3-7.7); Neutrophils % (A) 93 %; RBC 2.57 m/uL (3.80-5.40); RDW 18.3 % (11.5-15.5); WBC 6.6 k/uL (3.8-10.6)
[2019-05-08 05:56] LABS: Albumin 3.3 g/dL (3.5-5.0); Calcium 7.8 mg/dL (8.4-10.2); Potassium 4.3 mmol/L (3.5-5.1); Total Bilirubin 0.8 mg/dL (0.2-1.3); Total Protein 6.7 g/dL (6.3-8.2)
[2019-05-08 06:07] LABS: Platelet Count 82 k/uL (150-450)
[2019-05-08 07:04] LABS: Glucose,Whole Blood 175 mg/dL (75-99)
[2019-05-08] MEDS: INSULIN ASPART (NovoLOG) 100 UNIT/ML VIAL SQ SCH ×4 (07:29→22:35)
[2019-05-08] MEDS: PANTOPRAZOLE 40 MG TABLET PO SCH (08:09)
[2019-05-08] MEDS: SUCRALFATE 1 GM TAB PO SCH ×3 (08:09→18:12)
[2019-05-08] MEDS: APIXABAN 5 MG TAB PO SCH (08:09)
[2019-05-08] MEDS: ASPIRIN 81 MG PO SCH (08:09)
[2019-05-08] MEDS: DILTIAZEM CD 180 MG CAP.ER.24H PO SCH (08:09)
[2019-05-08] MEDS: GABAPENTIN 300 MG CAP PO SCH (08:09)
[2019-05-08] MEDS: SODIUM BICARBONATE TAB 650 MG TAB PO SCH (08:10)
[2019-05-08] MEDS: BUDESONIDE 1 MG/2 ML NEBU INHALATION SCH ×2 (08:11→19:53)
[2019-05-08] MEDS: IPRATROPIUM-ALBUTEROL 3 ML NEB INHALATION SCH ×4 (08:11→19:53)
--- NOTE | 2019-05-08 09:17 | XR ---
EXAMINATION TYPE: XR chest 1V portable DATE OF EXAM: 05/08/2019 HISTORY: Shortness of breath. COMPARISON: None. TECHNIQUE: Single view of the chest is submitted. FINDINGS: Somewhat improved diffuse interstitial patchy and confluent airspace disease. The heart remains mildl y prominent. Hilar and mediastinal structures are within normal limits. Degenerative changes are seen of the dorsal spine. IMPRESSION: 1. Somewhat improved diffuse interstitial patchy and confluent airspace disease. The heart remains m ildly prominent.
[2019-05-08] MEDS ORDERED: DEXTROSE 5% IN WATER 100 ML with AMIODARONE 150 MG IV ONE (09:30)
[2019-05-08] MEDS ORDERED: AMIODARONE 360 MG in DEXTROSE 5% IN WATER 200 ML IV ONE ×2 (09:45)
--- NOTE | 2019-05-08 11:07 | P.PN ---
Subjective Progress Note Date: 05/08/19 Principal diagnosis: Acute sepsis, acute urinary tract infection, gram-positive bacteremia, acute renal failure I was asked to evaluate this patient for a right upper lobe pneumonia. The patient was also be more short of breath yesterday and his chest x-ray was ordered and showed a questionable infiltrate in the right upper lobe and pneumonia was suspected. Note that the patient is morbidly obese with a BMI 59.8. The patient also has history of metastatic breast cancer for which she has undergone radiation therapy to her cervical spine that was complicated by radiation-induced esophagitis and difficulties in swallowing. She has been on systemic treatment with a combination of Ibrance and Fosladex. The patient presented to the hospital because of pancytopenia and infection and this do not to be a UTI with Enterococcus faecalis and blood culture was positive with Staphylococcus Lugdunenisis , which is a coagulase-negative staph and the patient was covered with vancomycin per IDs recommendations. Time of my evaluation, the patient was afebrile. Pulse ox is 96% on room air. No significant tachycardia. No chest pain. No pleurisy. No hemoptysis. She has some chronic swelling in lower extremities bilaterally. Moist recent white count is at 1.9. Platelet count is at 75. The patient also had developed an acute kidney injury. As the patient had a normal kidney function on 04/16/2019. Creatinine is up to 4.8 and this is probably related to an ATN induced by sepsis and further complicated by possible vancomycin-induced toxicity as the patient's serum vancomycin level was quite elevated with a vancomycin level of 37.8 from May 022018 is down trending. No evidence of any hydronephrosis on the renal ultrasound. Patient was reevaluated today on 05/05/2019, patient remains in the intensive care unit, quite short of breath, intermittent episodes of cough and hemoptysis. No fever, worsening chest x-ray with bilateral interstitial edema or infiltrates, poor urine output, hence the patient was switched from IV Lasix to Lasix drip at 10 mg per hour. Worsening renal functioning and acute kidney injury, patient may require hemodialysis. Being followed by nephrology. WBC count today is 3.1 hemoglobin is 7.8 electrolytes are normal however her bicarb is low at 19 BUN is up to 63 creatinine is up to 5.25. Her creatinine on admission 5 days ago was 2.69. Presently on cefepime, off vancomycin. Cultures so far have shown Enterococcus faecalis in the urine, and Staphylococcus lugdunenesis in the blood. Those are being addressed by Dr. Zimmerman on the case, patient is requiring 5 L nasal cannula, her O2 saturation is marginal, however intermittently has been on BiPAP. And that seems to be helping much better. Chest x-ray is worrisome, hence I recommended patient be placed on Lasix drip at 10 mg per hour. And discontinued Lasix at 60 mg IV push every 6 hours. Patient was reevaluated today on 05/06/2019, patient remains in the intensive care unit, almost BiPAP dependent. Remains on Lasix drip at 10 mg per hour, and urine output seems to be in the range of 30-50 mL per hour. Chest x-ray continues to show interstitial infiltrates/edema bilaterally. Renal functioning is a bit worse, creatinine is up to 5.62. Baseline creatinine on admission was 2.69. Patient remains on 50% BiPAP, and she desaturates significantly off BiPAP. Continues to have cough and wheezing. And significantly abnormal chest x-ray. Her daughter is at bedside today, and updated on her condition and patient may end up eventually requiring intubation and mechanical ventilation, but at this point we will try to manage with BiPAP and with bronchodilators, steroids, antibiotics, and diuretics. All her cultures were reviewed again, patient is being followed by Dr. Zimmerman. WBC count today is 4.3 hemoglobin is 7.7 and electrolytes are normal BUN is 77 creatinine is 5.62. Patient was reevaluated today on 05/07/2019, patient remains in the ICU, remains on BiPAP, received hemodialysis and ultrafiltration yesterday, and 3 L of fluids were removed. After the hemodialysis, her urine output was 0, hence her Lasix infusion was discontinued. Clinically the patient felt better, breathing a bit easier, chest x-ray is basically about the same continues to show interstitial infiltrates/edema. Not much improvement noted on the chest x-ray, but clinically the patient is feeling better. WBC count today is 4.7 hemoglobin is 8.1, electrodes are normal BUN is 73 creatinine is 5.14. Reevaluated today on 05/08/2019, patient underwent dialysis yesterday and dialysis ongoing today. Patient remains on BiPAP, she is basically BiPAP dependent on IPAP of 14 EPAP of 6 and 50% FiO2. O2 saturation remains in the mid 90s, however the patient desaturates significantly with any time off BiPAP.chest x-ray is somewhat improved, improved interstitial patchy airspace disease bilaterally. But not back to normal. On physical exam , I noted less wheezing, and less rhonchi noted.CBC showed WBC of 6.6 hemoglobin is 8.4 lites are normal BUN is 63 creatinine 4.50.repeat blood cultures in the last few days have been negative/over the last 72 hours. Objective - Vital Signs Vital signs: Vital Signs Temp 98.0 F 05/08/19 10:25 Pulse 146 H 05/08/19 10:25 Resp 29 H 05/08/19 10:25 BP 127/97 05/08/19 10:25 Pulse Ox 94 L 05/08/19 10:00 Intake & Output 05/07/19 05/08/19 05/08/19 18:59 06:59 18:59 Intake Total 120 110 223.3 Output Total 3791 67 3215 Balance -3671 43 -2991.7 Weight 148.3 kg 148.3 kg Intake: IV 120 110 223.3 0.9 NS 120 110 40 Amiodarone 360 mg In 33.3 Dextrose 5% in Water 200 ml @ 1 MG/MIN 33.333 mls/ hr IV .Q6H ONE Rx#: [id number] Dextrose 5% in Water 100 150 ml @ 618 mls/hr IV .Q10M ONE with Amiodarone 150 mg Rx#:[id number] Output: Urine 85 67 15 Hemodialysis [id number] Other: Voiding Method Indwelling Catheter Indwelling Catheter Indwelling Catheter # Voids 0 - Exam Physical Exam: Revealed an obese 63-year-old female, remains on BiPAP,IPAP of 14 EPAP of 6 FiO2 50%. HEENT: Neck supple, no neck masses, no JVD. No adenopathy. HEENT:[Neck is supple.] [No neck masses.] [No thyromegaly.] [No JVD.] Chest: [Symmetrical chest expansion,less crackles, less rhonchi, less wheezing noted today compared to the last few days. Cardiac Exam: [Normal S1 and S2, no S3 gallop, no murmur.] Abdomen: [Obese, Soft, nontender, no megaly, no rebound, no guarding, normal bowel sounds.] Extremities: [No clubbing, 1+ bipedal edema, no cyanosis.] Good pulses bilaterally. Neurological Exam: Alert and oriented 3. [No focal neurologic deficit.] Lymphatics: No lymphadenopathy. Psychiatric: Normal mood affect and normal mental status examination. Skin: No rashes. - Labs CBC & Chem 7: 05/08/19 04:59 05/08/19 04:59 Labs: Abnormal Lab Results - Last 24 Hours (Table) 05/07/19 05/07/19 05/07/19 Range/Units 11:48 17:07 21:53 RBC (3.80-5.40) m/uL Hgb (11.4-16.0) gm/dL Hct (34.0-46.0) % MCV (80.0-100.0) fL RDW (11.5-15.5) % Plt Count (150-450) k/uL Lymphocytes # (1.0-4.8) k/uL BUN (7-17) mg/dL Creatinine (0.52-1.04) mg/dL Glucose (74-99) mg/dL POC Glucose (mg/dL) 177 H 136 H 156 H (75-99) mg/dL Calcium (8.4-10.2) mg/dL AST (14-36) U/L Albumin (3.5-5.0) g/dL 05/08/19 05/08/19 05/08/19 Range/Units 04:59 04:59 06:52 RBC 2.57 L (3.80-5.40) m/uL Hgb 8.4 L (11.4-16.0) gm/dL Hct 25.9 L (34.0-46.0) % MCV 100.7 H (80.0-100.0) fL RDW 18.3 H (11.5-15.5) % Plt Count 82 L (150-450) k/uL Lymphocytes # 0.2 L (1.0-4.8) k/uL BUN 63 H (7-17) mg/dL Creatinine 4.50 H (0.52-1.04) mg/dL Glucose 161 H (74-99) mg/dL POC Glucose (mg/dL) 175 H (75-99) mg/dL Calcium 7.8 L (8.4-10.2) mg/dL AST 50 H (14-36) U/L Albumin 3.3 L (3.5-5.0) g/dL Microbiology - Last 24 Hours (Table) 05/05/19 04:39 Blood Culture - Preliminary Blood No Growth after 72 hours 05/05/19 04:12 Blood Culture - Preliminary Blood No Growth after 72 hours 05/03/19 23:18 Blood Culture - Preliminary Blood No Growth after 96 hours Assessment and Plan Assessment: Impression: 1 shortness of breath with acute hypoxic respiratory failure secondary to sepsis, urinary tract infection, anemia, and suspect pulmonary edema which is possibly cardiogenic or noncardiogenic in nature. at this point I believe that the combination of both. She does have elevated BNP level, echocardiogram showed mildly impaired ejection fraction 45%, severe aortic stenosis is also noted on the echocardiogram. Peak gradient across the aortic valve is 76 with a mean of 43.8 . Patient seems to be responding well to hemodialysis and ultrafiltration. Over 3 L were removed yesterday, and few liters will be removed today. However during the dialysis, patient went into atrial fibrillation with RVR, and she is about to be started on amiodarone drip. 2 acute kidney injury secondary to ATN, possible vancomycin nephrotoxicity. 3 gram-positive bacteremia , blood cultures have been negative over the last 72 hours.Remains on antibiotics as per infectious disease on the case. 4 Enterococcus faecalis urinary tract infection, being addressed by infectious disease. 5 metastatic breast cancer patient has been on chemotherapy until recently. 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 8 chemotherapy induced pancytopenia 9 metabolic acidosis secondary to sepsis and acute kidney injury. 10 atrial fibrillation with RVR, patient will be started on amiodarone drip today 05/08/2019, patient has history of paroxysmal atrial fibrillation. Recommendation: Continue present supportive care measures including BiPAP, high flow O2, hemodialysis/ultrafiltration, diuretics, antibiotics, steroids, bronchodilators, GI and DVT prophylaxis, nutritional support, overall prognosis remains basically poor and guarded, no plans to transfer the patient out of the ICU today, we'll continue dialysis, continue all measures as noted above, continue BiPAP, we'll continue to follow. Prognosis remains extremely poor and guarded. Patient will be started on amiodarone today for A. fib/RVR. Time with Patient: Less than 30
[2019-05-08] MEDS ORDERED: METOPROLOL TARTRATE 5 MG/5 ML VIAL IVP STA (11:25)
[2019-05-08] MEDS ORDERED: METOPROLOL TARTRATE 5 MG/5 ML VIAL IVP ONE (11:28)
[2019-05-08] MEDS: FLUTICASONE 50MCG/SPRAY NASAL 16GM EA NOSTRIL SCH (11:29)
[2019-05-08] MEDS: CEFEPIME 2 GM in SODIUM CHLORIDE 0.9% 100 ML IVPB SCH (11:37)
[2019-05-08 11:58] LABS: Glucose,Whole Blood 182 mg/dL (75-99)
--- NOTE | 2019-05-08 12:50 | PN ---
PROGRESS NOTE This patient is treated for acute sepsis and acute renal failure. Patient had paroxysmal atrial fibrillation. Yesterday patient converted back to the normal sinus rhythm. This morning patient is back into the atrial fibrillation with rapid rate. Patient's chest x-ray shows diffuse bilateral infiltrates because of the possibly fluid overload. Patient's heart rate now is 130 to 150. Blood pressure is 127/97 mmHg. First and second heart sounds are heard. Lungs examination revealed bilateral wheezes. FINAL IMPRESSION: Paroxysmal atrial fibrillation with a rapid ventricular response. In view of the recurrent episodes of atrial fibrillation, I will start the patient on amiodarone drip that might help. MMODL / IJN: [id number] /
--- NOTE | 2019-05-08 13:01 | P.PN ---
Subjective Progress Note Date: 05/08/19 Principal diagnosis: Fever, congestive heart failure, acute renal failure, metastatic breast cancer In follow-up today patient is lethargic, requires loud voice and soft touch to arouse, she drifts quickly back off to sleep. I asked her if she knew where she was, she shook her head yes. I asked her if she knew who I was, she shook her head yes but, she did not answer either question. Objective - Vital Signs Vital signs: Vital Signs Temp 98.0 F 05/08/19 10:25 Pulse 122 H 05/08/19 12:01 Resp 20 05/08/19 11:00 BP 110/81 05/08/19 11:00 Pulse Ox 93 L 05/08/19 11:00 Intake & Output 05/07/19 05/08/19 05/08/19 18:59 06:59 18:59 Intake Total 120 110 266.6 Output Total 3791 67 3215 Balance -3671 43 -2948.4 Weight 148.3 kg 148.3 kg Intake: IV 120 110 266.6 0.9 NS 120 110 50 Amiodarone 360 mg In 66.6 Dextrose 5% in Water 200 ml @ 1 MG/MIN 33.333 mls/ hr IV .Q6H ONE Rx#: [id number] Dextrose 5% in Water 100 150 ml @ 618 mls/hr IV .Q10M ONE with Amiodarone 150 mg Rx#:[id number] Output: Urine 85 67 15 Hemodialysis 3706 3200 Other: Voiding Method Indwelling Catheter Indwelling Catheter Indwelling Catheter # Voids 0 - Constitutional General appearance: Present: mild distress, obese - Respiratory Respiratory: bilateral: rhonchi (maybe slighty better) - Cardiovascular Details: tachycardia Rhythm: irregularly irregular - Peripheral edema leg Peripheral Edema: bilateral: 1+ - Gastrointestinal General gastrointestinal: Present: normal bowel sounds, soft - Musculoskeletal Musculoskeletal: Present: generalized weakness - Psychiatric Psychiatric: Absent: A&O x's 3, appropriate affect, intact judgment & insight - Labs CBC & Chem 7: 05/08/19 04:59 05/08/19 04:59 Labs: Abnormal Lab Results - Last 24 Hours (Table) 05/07/19 05/07/19 05/08/19 Range/Units 17:07 21:53 04:59 RBC 2.57 L (3.80-5.40) m/uL Hgb 8.4 L (11.4-16.0) gm/dL Hct 25.9 L (34.0-46.0) % MCV 100.7 H (80.0-100.0) fL RDW 18.3 H (11.5-15.5) % Plt Count 82 L (150-450) k/uL Lymphocytes # 0.2 L (1.0-4.8) k/uL BUN (7-17) mg/dL Creatinine (0.52-1.04) mg/dL Glucose (74-99) mg/dL POC Glucose (mg/dL) 136 H 156 H (75-99) mg/dL Calcium (8.4-10.2) mg/dL AST (14-36) U/L Albumin (3.5-5.0) g/dL 05/08/19 05/08/19 05/08/19 Range/Units 04:59 06:52 11:47 RBC (3.80-5.40) m/uL Hgb (11.4-16.0) gm/dL Hct (34.0-46.0) % MCV (80.0-100.0) fL RDW (11.5-15.5) % Plt Count (150-450) k/uL Lymphocytes # (1.0-4.8) k/uL BUN 63 H (7-17) mg/dL Creatinine 4.50 H (0.52-1.04) mg/dL Glucose 161 H (74-99) mg/dL POC Glucose (mg/dL) 175 H 182 H (75-99) mg/dL Calcium 7.8 L (8.4-10.2) mg/dL AST 50 H (14-36) U/L Albumin 3.3 L (3.5-5.0) g/dL Microbiology - Last 24 Hours (Table) 05/05/19 04:39 Blood Culture - Preliminary Blood No Growth after 72 hours 05/05/19 04:12 Blood Culture - Preliminary Blood No Growth after 72 hours 05/03/19 23:18 Blood Culture - Preliminary Blood No Growth after 96 hours - Imaging and Cardiology Chest x-ray: report reviewed Assessment and Plan (1) Metastatic breast carcinoma Narrative/Plan: Patient recently had change in her hormonal therapy from oral to IM. She received loading dose of Faslodex 03/14 through 04/16. Her last dose of Xgeva was on April 16. Patient will be due for xgeva and Faslodex in about 2 weeks. Patient's oral Ibrance is on hold. This is a 21 day regimen every 28 days. Patient has had difficulties tolerating Ibrance treatment. Dose can be adjusted or, patient could be considered for a different therapy. Decisions will be made after her acute condition has been treated. Patient does have hormone receptor positive breast cancer that has numerous lines of therapy that pt has never even seen yet. Current Visit: Yes Status: Chronic Priority: Medium Code(s): C50.919 - MALIGNANT NEOPLASM OF UNSP SITE OF UNSPECIFIED FEMALE BREAST SNOMED Code(s): 701502332 (2) Acute respiratory failure Narrative/Plan: Patient is on BiPAP in the intensive care unit being monitored closely by the Critical Care team. Case reviewed with RN. Pulmonary is going to continue to keep patient on BiPAP at this time, there was discussion of slightly improved chest x-ray. We'll defer management of the same to them Current Visit: Yes Status: Acute Priority: High Code(s): J96.00 - ACUTE RESPIRATORY FAILURE, UNSP W HYPOXIA OR HYPERCAPNIA SNOMED Code(s): 33297306 (3) Fever Current Visit: Yes Status: Resolved Priority: High Code(s): R50.9 - FEVER, UNSPECIFIED SNOMED Code(s): 375237594 (4) Acute renal failure Narrative/Plan: Patient has received dialysis. Her kidney function is slightly better today. There is only a small amount of urine in the [facility] collection system but, I am unaware of the last time of empty. Urine is clear and yellow. Current Visit: Yes Status: Acute Priority: High Code(s): N17.9 - ACUTE KIDNEY FAILURE, UNSPECIFIED SNOMED Code(s): 23338636 Plan: Patient is on a request for atrial fibrillation. Close monitoring for bleeding. Platelet count today is 82,000. As long as platelets are greater than 50,000 she is okay for anticoagulation from that aspect.
--- NOTE | 2019-05-08 13:56 | PN ---
PROGRESS NOTE DATE OF SERVICE: 05/08/2019 This 64-year-old woman who was admitted with acute right lower lobe pneumonia also had possibly neutropenic sepsis. No chest pain or palpitations. No fever. PHYSICAL EXAMINATION: On exam, alert and oriented x3. Pulse is 152, blood pressure 110/81, respiration 20, temperature 98 degrees, pulse ox 93% on BiPAP. HEENT: Conjunctivae normal. NECK: No jugular venous distention. CARDIOVASCULAR: S1, S2 muffled. RESPIRATORY: Breath sounds diminished at the bases. Bilateral scattered rhonchi and crackles. ABDOMEN: Soft, nontender. LEGS: No edema, no swelling. NERVOUS SYSTEM: No focal deficits. LABS: Labs are at this time shows WBC 6.6, hemoglobin is 8.4, sodium 138, potassium 4.3. Creatinine is 4.50. ASSESSMENT: 1. Acute right lower lobe pneumonia with possibly neutropenic sepsis, present on admission. 2. Acute renal failure with acute tubular necrosis multifactorial with prerenal factors worsening started on new onset hemodialysis. 3. Fluid overload, congestive heart failure acute exacerbation with acute on chronic systolic dysfunction ejection fraction 40% to 50% with severe aortic stenosis, moderate to severe aortic regurgitation with [id number] tricuspid regurgitation. 4. Possible ARDS. 5. Atrial fibrillation with fast ventricular rate. 6. Acute hypoxic respiratory failure on BiPAP secondary to above. 7. Enterococcus faecalis vancomycin sensitive from the urine culture. 8. Mary albicans from the sputum. 9. Pancytopenia secondary to chemotherapy. 10.Carcinoma of the breast with metastasis to spine and liver. 11.Hyponatremia. 12.Increased AST. 13.Obesity with body mass index of 63.9. 14.Hypertension. 15.History of left-sided cerebrovascular accident. 16.History of breast surgery. 17.Remote history of nicotine dependence. RECOMMENDATIONS AND DISCUSSION: Recommend to continue current medications. Continue with monitoring and symptomatic treatment. Otherwise, I would recommend monitor the patient closely in ICU. I would also recommend continue with hemodialysis. Monitor oxygenation. Creatinine is 4.5 today. Otherwise, closely follow with Dr. Delacruz as mentioned earlier. Chest x- ray which was reviewed personally by me showed significant lesions, probably improving slightly. Closely follow with multiple consultants. See orders for further details. Further recommendations to follow. Please note that the patient is currently FULL CODE per patient's expressed wishes, but with instructions, patient does not want a prolonged mechanical ventilation. MMODL / IJN: [id number] / MTDD
[2019-05-08] MEDS ORDERED: LIDOCAINE 1% INJ 10MG/ML (20 ML MDV) SQ ONE (14:43)
[2019-05-08] MEDS: AMIODARONE 300 MG in DEXTROSE 5% IN WATER 250 ML IV SCH ×2 (16:54)
[2019-05-08 17:12] LABS: Glucose,Whole Blood 181 mg/dL (75-99)
--- NOTE | 2019-05-08 20:56 | PN ---
PROGRESS NOTE Patient is seen for followup for acute kidney injury. Urine output remains low at 5 to 10 mL an hour. The patient had about 3.2 L of ultrafiltration yesterday. She was dialyzed again this morning with about 3 L of fluid removed. The patient had developed atrial fibrillation with RVR. Currently she is maintained on amiodarone drip. Heart rate is controlled. On examination this afternoon, heart rate about 120 per minute. Patient is afebrile. Blood pressure was 94/66. Examination of the heart S1, S2. Examination of the lungs, bilateral breath sounds are heard. Decreased breath sounds at bases. Abdomen is soft, morbidly obese. Examination of lower extremities shows edema 2+ bilaterally. [employer] exam grossly intact. LABS: Hemoglobin 8.4 from 05/08/2019. Sodium 138, potassium 4.3, BUN 63, serum creatinine 4.5. ASSESSMENT: 1. Acute kidney injury, acute tubular necrosis and secondary to vancomycin toxicity, currently oliguric, maintained on daily dialysis. 2. Severe volume overload, slowly improving. We will arrange for hemodialysis again in a.m. with about 3 L of ultrafiltration as tolerated. 3. Atrial fibrillation with RVR. Currently maintained on amiodarone drip with controlled ventricular response. 4. Anemia with no active bleeding noted. Check iron studies. 5. Enterococcus faecalis urinary tract infection. PLAN: Repeat hemodialysis in a.m. Check iron profile with labs in a.m. MMODL / IJN: [id number] /
[2019-05-08 21:09] LABS: Glucose,Whole Blood 164 mg/dL (75-99)
[2019-05-08 22:30] LABS: Glucose,Whole Blood 166 mg/dL (75-99)
--- NOTE | 2019-05-08 22:30 | P.PN ---
Subjective Progress Note Date: 05/08/19 Pleasant 63-year-old female is a complex past medical history regarding her breast carcinoma. 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 Because of increasing pain and neurological difficulties she was evaluated was treated with radiation therapy to the cervical and thoracic spine . She Developed extensive radiation dermatitis and esophagitis. She was hospitalized [facility] and with treatment of the skin and esophagitis she had marked improvement. She has had a subsequent hospitalization at the outside facility where she had a urinary tract infection. She now presents to Hospital feeling poorly with evidence significant weakness with fever 102, chills and evidence of new abnormality. Chest x-ray acute renal failure and generalized malaise. With fluid resuscitation antibiotic therapy she started to feel somewhat better. Cultures are in process with concerns to urinary tract infection as a source of the current bout of sepsis. 05/02/2017 the patient's renal failure continues but her fevers improved. With the elevated vancomycin level this is put on hold. 05/04/2019 patient continues to have increasing creatinine, and feels poorly with her acute renal failure. She is having some shakiness to her arms and legs, weakness and poor appetite. However is not having nausea or emesis. All the food does taste poorly. She's had some increased difficulties with her oral cavity possibly thrush. 05/05/2019 the patient has had a significant worsening of her status overnight. She became profoundly short of breath and required transfusions and its care unit where she's now been placed on BiPAP has been titrated down to 50% now she is feeling considerably better bacillin well. She's having no chest pains. She was seen by cardiology there is evidence of volume overload as well as worsening of her aortic stenosis and regurgitation and pulmonary hypertension. The the treatment of failure has stabilized with no further increase of her creatinine. Vancomycin level is still therapeutic but falling. 05/06/2019 patient's volume status became more problematic, more short of breath She's been seen by the nephrology and dialysis is initiated. Approximately 2- 1/2 L of fluid have been removed and she is now less short of breath but emotional upset. It is her 64th birthday. 05/08/2019 patient has had further cycles of hemodialysis and is now approximately 10 L of fluid removed by ultrafiltration, is having some improvement over status but is still having a significant acute lung injury with the significant ongoing shortness of breath and BiPAP dependence. Her mood is poor and she is anxious about her overall care. Objective - Vital Signs Vital signs: Vital Signs Temp 97.8 F 05/08/19 20:00 Pulse 138 H 05/08/19 20:02 Resp 30 H 05/08/19 20:02 BP 92/75 05/08/19 20:00 Pulse Ox 94 L 05/08/19 20:00 Intake & Output 05/08/19 05/08/19 05/09/19 06:59 18:59 06:59 Intake Total 110 519.6 71.6 Output Total 67 6430 40 Balance 43 -5910.4 31.6 Weight 148.3 kg 148.3 kg Intake: IV 110 519.6 71.6 0.9 NS 110 120 30 Amiodarone 300 mg In 25 Dextrose 5% in Water 250 ml @ 0.5 MG/MIN 25 mls/hr IV .Q10H MALCOM Rx#: [id number] Amiodarone 360 mg In 249.6 16.6 Dextrose 5% in Water 200 ml @ 1 MG/MIN 33.333 mls/ hr IV .Q6H ONE Rx#: [id number] Dextrose 5% in Water 100 150 ml @ 618 mls/hr IV .Q10M ONE with Amiodarone 150 mg Rx#:[id number] Output: Urine 67 30 40 Hemodialysis 3200 Other 3200 Other: Voiding Method Indwelling Catheter Indwelling Catheter # Voids 0 - Exam 63-year-old woman presents to Hospital feeling poorly now with a significant worsening shortness of breath, BiPAP in place still very short of breath despite the dialysis in many liters of fluid removed. General exam reveals been marked improvement of her generalized edema. HEENT: Anicteric conjunctiva are pink and moist nasal mucosa grossly intact without significant lesions, and the very posterior aspect of the pharynx is now some mild white coating consistent with early thrush. Neck: The neck is supple without significant lymphadenopathy or thyromegaly. Lungs: There is symmetrical air entry with coarse crackles and wheezing to the lung chiang basilar crackles are heard Heart: Regular with the 2/6 systolic murmur left sternal border Abdomen: Obese, Positive bowel sounds soft minimal tenderness is noted in the right upper quadrant without palpable masses or organomegaly. There was no guarding or rebound. Extremities: The upper extremities have excellent pulses they are symmetric, no significant petechiae or telangiectasia. No splinter hemorrhages were noted. The lower extremities have trace edema pulses 2+ and symmetric Neuro: Awake alert oriented to person place and time. There are no acute new gross focal sensory motor deficits. Skin reveals evidence of the resolution of the radiation dermatitis does have some residual color change but there is nothing ulcer. She is not having any further difficulties with the esophagitis either although does have a bit of dry mouth and throat. - Labs CBC & Chem 7: 05/08/19 04:59 05/08/19 04:59 Labs: Abnormal Lab Results - Last 24 Hours (Table) 05/08/19 05/08/19 05/08/19 Range/Units 04:59 04:59 06:52 RBC 2.57 L (3.80-5.40) m/uL Hgb 8.4 L (11.4-16.0) gm/dL Hct 25.9 L (34.0-46.0) % MCV 100.7 H (80.0-100.0) fL RDW 18.3 H (11.5-15.5) % Plt Count 82 L (150-450) k/uL Lymphocytes # 0.2 L (1.0-4.8) k/uL BUN 63 H (7-17) mg/dL Creatinine 4.50 H (0.52-1.04) mg/dL Glucose 161 H (74-99) mg/dL POC Glucose (mg/dL) 175 H (75-99) mg/dL Calcium 7.8 L (8.4-10.2) mg/dL AST 50 H (14-36) U/L Albumin 3.3 L (3.5-5.0) g/dL 05/08/19 05/08/19 05/08/19 Range/Units 11:47 17:00 20:58 RBC (3.80-5.40) m/uL Hgb (11.4-16.0) gm/dL Hct (34.0-46.0) % MCV (80.0-100.0) fL RDW (11.5-15.5) % Plt Count (150-450) k/uL Lymphocytes # (1.0-4.8) k/uL BUN (7-17) mg/dL Creatinine (0.52-1.04) mg/dL Glucose (74-99) mg/dL POC Glucose (mg/dL) 182 H 181 H 164 H (75-99) mg/dL Calcium (8.4-10.2) mg/dL AST (14-36) U/L Albumin (3.5-5.0) g/dL Microbiology - Last 24 Hours (Table) 05/05/19 04:39 Blood Culture - Preliminary Blood No Growth after 72 hours 05/05/19 04:12 Blood Culture - Preliminary Blood No Growth after 72 hours 05/03/19 23:18 Blood Culture - Preliminary Blood No Growth after 96 hours Laboratory Results WBC 6.6 k/uL (3.8-10.6) 05/08/19 04:59 RBC 2.57 m/uL (3.80-5.40) L 05/08/19 04:59 Hgb 8.4 gm/dL (11.4-16.0) L 05/08/19 04:59 Hct 25.9 % (34.0-46.0) L 05/08/19 04:59 MCV 100.7 fL (80.0-100.0) H 05/08/19 04:59 MCH 32.7 pg (25.0-35.0) 05/08/19 04:59 MCHC 32.5 g/dL (31.0-37.0) 05/08/19 04:59 RDW 18.3 % (11.5-15.5) H 05/08/19 04:59 Plt Count 82 k/uL (150-450) L 05/08/19 04:59 Neutrophils % 93 % 05/08/19 04:59 Neutrophils % (Manual) 86 % 05/02/19 06:57 Band Neutrophils % 2 % 05/02/19 06:57 Lymphocytes % 2 % 05/08/19 04:59 Lymphocytes % (Manual) 6 % 05/02/19 06:57 Monocytes % 4 % 05/08/19 04:59 Monocytes % (Manual) 4 % 05/02/19 06:57 Eosinophils % 1 % 05/08/19 04:59 Eosinophils % (Manual) 2 % 05/02/19 06:57 Basophils % 0 % 05/08/19 04:59 Neutrophils # 6.2 k/uL (1.3-7.7) 05/08/19 04:59 Neutrophils # (Manual) 2.00 k/uL (1.3-7.7) 05/02/19 06:57 Lymphocytes # 0.2 k/uL (1.0-4.8) L 05/08/19 04:59 Lymphocytes # (Manual) 0.14 k/uL (1.0-4.8) L 05/02/19 06:57 Monocytes # 0.2 k/uL (0-1.0) 05/08/19 04:59 Monocytes # (Manual) 0.09 k/uL (0-1.0) 05/02/19 06:57 Eosinophils # 0.0 k/uL (0-0.7) 05/08/19 04:59 Eosinophils # (Manual) 0.05 k/uL (0-0.7) 05/02/19 06:57 Basophils # 0.0 k/uL (0-0.2) 05/08/19 04:59 Nucleated RBCs 0 /100 WBC (0-0) 05/02/19 06:57 Manual Slide Review Performed 05/03/19 08:24 Large Platelets Present 04/30/19 11:43 Hypochromasia Slight 05/04/19 08:08 Poikilocytosis (manual Present 05/02/19 06:57 Anisocytosis Slight 05/08/19 04:59 Anisocytosis (manual) Present 05/01/19 07:16 Macrocytosis Slight 05/08/19 04:59 Rouleaux Present 05/02/19 06:57 PT 10.7 sec (9.0-12.0) 05/01/19 12:37 INR 1.0 (<1.2) 05/01/19 12:37 APTT 26.3 sec (22.0-30.0) 05/01/19 12:37 Sodium 138 mmol/L (137-145) 05/08/19 04:59 Potassium 4.3 mmol/L (3.5-5.1) 05/08/19 04:59 Chloride 101 mmol/L (98-107) 05/08/19 04:59 Carbon Dioxide 25 mmol/L (22-30) 05/08/19 04:59 Anion Gap 12 mmol/L 05/08/19 04:59 BUN 63 mg/dL (7-17) H 05/08/19 04:59 Creatinine 4.50 mg/dL (0.52-1.04) H 05/08/19 04:59 Est GFR (CKD-EPI)AfAm 11 (>60 ml/min/1.73 sqM) 05/08/19 04:59 Est GFR (CKD-EPI)NonAf 10 (>60 ml/min/1.73 sqM) 05/08/19 04:59 Glucose 161 mg/dL (74-99) H 05/08/19 04:59 POC Glucose (mg/dL) 164 mg/dL (75-99) H 05/08/19 20:58 POC Glu Merchandise Presentation Associate ID Travon Boyd 05/08/19 20:58 Plasma Lactic Acid Jon 0.9 mmol/L (0.7-2.0) 05/05/19 08:15 Calcium 7.8 mg/dL (8.4-10.2) L 05/08/19 04:59 Phosphorus 4.6 mg/dL (2.5-4.5) H 05/05/19 00:23 Magnesium 2.2 mg/dL (1.6-2.3) 05/05/19 04:12 Total Bilirubin 0.8 mg/dL (0.2-1.3) 05/08/19 04:59 AST 50 U/L (14-36) H 05/08/19 04:59 ALT 31 U/L (9-52) 05/08/19 04:59 Alkaline Phosphatase 114 U/L (38-126) 05/08/19 04:59 NT-Pro-B Natriuret Pep 06097 pg/mL 05/05/19 00:23 Total Protein 6.7 g/dL (6.3-8.2) 05/08/19 04:59 Albumin 3.3 g/dL (3.5-5.0) L 05/08/19 04:59 Urine Color Dark Brown 04/30/19 13:00 Urine Appearance Turbid (Clear) H 04/30/19 13:00 Urine pH 5.0 (5.0-8.0) 04/30/19 13:00 Ur Specific [place] 1.016 (1.001-1.035) 04/30/19 13:00 Urine Protein 2+ (Negative) H 04/30/19 13:00 Urine Glucose (UA) Negative (Negative) 04/30/19 13:00 Urine Ketones Negative (Negative) 04/30/19 13:00 Urine Blood Large (Negative) H 04/30/19 13:00 Urine Nitrite Negative (Negative) 04/30/19 13:00 Urine Bilirubin Negative (Negative) 04/30/19 13:00 Urine Urobilinogen 4.0 mg/dL (<2.0) 04/30/19 13:00 Ur Leukocyte Esterase Large (Negative) H 04/30/19 13:00 Urine RBC >182 /hpf (0-5) H 04/30/19 13:00 Urine WBC 40 /hpf (0-5) H 04/30/19 13:00 Urine WBC Clumps Occasional /hpf (None) H 04/30/19 13:00 Ur Squamous Epith Cells 13 /hpf (0-4) H 04/30/19 13:00 Urine Bacteria Moderate /hpf (None) H 04/30/19 13:00 Urine Mucus Occasional /hpf (None) H 04/30/19 13:00 Random Vancomycin 16.4 ug/mL 05/06/19 04:06 Serum ANNE-MARIE Interpret SEE NOTE 05/03/19 23:18 Urine Immunofixation SEE NOTE 05/03/19 14:30 LOUANN Screen NEGATIVE (NEGATIVE) 05/03/19 23:18 c-ANCA <1:20 Titer (<1:20) 05/03/19 23:18 p-ANCA <1:20 Titer (<1:20) 05/03/19 23:18 Double Strand DNA Ab NEGATIVE (NEGATIVE) 05/03/19 23:18 Anti-DNA Ab Interp <1.0 IU/mL 05/03/19 23:18 Complement C3 117.0 mg/dL (80.0-207.0) 05/03/19 23:18 Complement C4 16.4 mg/dL (10.0-53.0) 05/03/19 23:18 Tot Complement (CH50) 92 U/mL (42 - 95) 05/06/19 04:06 Hepatitis A IgM Ab Non-Reactive (Non-Reactive) 05/03/19 23:18 Hep Bs Antigen Non-Reactive (Non-Reactive) 05/06/19 14:00 Hep Bs Antibody Non-Reactive (Non-Reactive) 05/05/19 14:00 Hep Bs Antibody, Quant 3.5 mIU/mL 05/05/19 14:00 Hep B Core Total Ab Non-Reactive (Non-Reactive) 05/06/19 14:00 Hep B Core IgM Ab Non-Reactive (Non-Reactive) 05/03/19 23:18 Hep C IgG Ab Non-Reactive (Non-Reactive) 05/03/19 23:18 Influenza Type A RNA Not Detected (Not Detectd) 04/30/19 13:04 Influenza Type B (PCR) Not Detected (Not Detectd) 04/30/19 13:04 Microbiology 05/05/19 04:39 Blood Blood Culture - Preliminary No Growth after 72 hours 05/05/19 04:12 Blood Blood Culture - Preliminary No Growth after 72 hours 05/03/19 23:18 Blood Blood Culture - Preliminary No Growth after 96 hours 04/30/19 11:43 Blood Blood Culture Gram Stain - Final 04/30/19 11:43 Blood Blood Culture - Final Staphylococcus lugdunenisis 05/02/19 09:21 Sputum Gram Stain - Final 05/02/19 09:21 Sputum Sputum Culture - Final Mary albicans 04/30/19 13:00 Urine,Voided Urine Culture - Final Enterococcus faecalis 04/30/19 11:43 Blood Blood Culture - Final Assessment and Plan (1) Acute renal failure Current Visit: Yes Status: Acute Priority: High Code(s): N17.9 - ACUTE KIDNEY FAILURE, UNSPECIFIED SNOMED Code(s): 21573358 (2) Gram-positive cocci bacteremia Current Visit: No Status: Acute Code(s): R78.81 - BACTEREMIA SNOMED Code(s): 385601238499 (3) Metastatic breast carcinoma Current Visit: Yes Status: Chronic Priority: Medium Code(s): C50.919 - MALIGNANT NEOPLASM OF UNSP SITE OF UNSPECIFIED FEMALE BREAST SNOMED Code(s): 609768928 (4) Urinary tract infection Narrative/Plan: 63-year-old woman who has a history of the metastaticBreast carcinoma with evid ence of significant metastasis to the skeleton as well as liver metastasis presents to Hospital feeling poorly with another bout of fever chills malaise occurring after her recent treatment with chemotherapy. Been seen by her oncology team and chemotherapy is now on hold. He does not have severe n eutropenia and is being monitored. There is evidence of urinary tract infection is likely etiology her current sepsis and laboratories: Positive blood culture with gram-positive cocci. She's had several prior blood cultures with gram- positive cocci that has been staphylococcus ludegensis, which is a coagulase- negative staph and since the patient does not have an indwelling catheter has not been thought to be a significant pathogen. Somewhat concerning if it continues to be found. Urine culture is showing evidence of gram-positive cocci and constantly vancomycin therapy is being utilized as well as Rocephin until there is further data. She has developed acute renal failure and consequently very close monitoring with vancomycin therapy is indicated we'll try to limit the dosing as much as possible. Nephrology will be seeing her for her acute increase of her creatinine to 3.46. 2-D echocardiogram has been requested and she shall be monitored. 05/02/2018 dear culture now shows evidence of enterococcus blood cultures are growing coagulase negative staph. Antibiotic therapy will now be D escalated. The Rocephin and vancomycin are discontinued. Vancomycin level currently is elevated. Once his level falls to less than 15 will then be able to initiate alternative antibiotic therapy for the treatment of the enterococcus. If blood cultures remain negative would not need further IV antibiotic therapy. 05/04/2019 the patient continues to feel very poorly with evidence of her acute renal failure the toxicity associated with that. The vancomycin level has dropped to 23 and likely will be subtherapeutic and the next day or so. At that time with initiate by therapy to complete the treatment of her enterococcal infection. Nephrology is following and continue to contemplate the need for renal replacement therapy. The patient's blood cultures are being repeated to ensure that the foot was negative staph is not persistent, is noted he has been seen on several occasions in the past, but she does not have any indwelling catheters. 05/05/2019 the patient has had a significant worsening of her status development of respiratory failure requiring BiPAP therapy with evidence of congestive heart failure and worsening underlying cardiac function. Aortic stenosis and regurgit ation symptoms considerably worse in her pulmonary hypertension is worse. With diuresis she is having less short of breath her BiPAP as tolerated 50% The vancomycin level will likely come subtherapeutic tomorrow and that will consider alteration of antibiotic therapy vancomycin is being utilized for the enterococcal urinary tract infection 05/06/2019 patient does feel slightly better with her hemodialysis it is started today. 2 half liters of fluid removed the profound shortness of breath is st arting to improve. She will have dialysis again in the morning. Vancomycin level is being followed when subtherapeutic we'll need to consider if she needs further antibiotic therapy for her enterococcal urinary tract infection. She's had the multiple blood cultures with Staphylococcus ludigenesis overtime, she does not have an indwelling port. Most recent echocardiogram does not reveal evidence of endocarditis she does have significant valvular heart disease. When she is further improved may need a JERAMY. 05/08/2019 the patient is now had several cycles of hemodialysis and has had approximately 10 L of fluid removed. She still very short of breath requiring BiPAP. The patient is now had an adequate course of therapy for her enterococcal urinary tract infection vancomycin level is now trending toward subtherapeutic. She does not require further antibiotic therapy at this time. Of note the patient's creatinine was elevated before the first dose of vancomycin therapy. Current Visit: Yes Status: Acute Code(s): N39.0 - URINARY TRACT INFECTION, SITE NOT SPECIFIED SNOMED Code(s): 26084335
[2019-05-09] MEDS: CLOTRIMAZOLE TROCHE 10 MG TROCHE MUCOUS MEM SCH ×6 (00:36→21:10)
[2019-05-09] MEDS: APIXABAN 5 MG TAB PO SCH ×3 (00:36→20:26)
[2019-05-09] MEDS: ATORVASTATIN 40 MG TAB PO SCH ×2 (00:37→20:27)
[2019-05-09] MEDS: MONTELUKAST 10 MG TAB PO SCH ×2 (00:37→20:26)
[2019-05-09] MEDS: SENNOSIDES-DOCUSATE SODIUM 1 EACH TAB PO SCH ×2 (00:37→20:26)
[2019-05-09] MEDS: SODIUM BICARBONATE TAB 650 MG TAB PO SCH ×3 (00:42→20:27)
[2019-05-09] MEDS: SUCRALFATE 1 GM TAB PO SCH ×5 (00:43→20:27)
[2019-05-09] MEDS: methylPREDNISolone SOD SUCCI 40 MG/ML 1 ML VIAL IV SCH ×4 (00:45→17:18)
[2019-05-09] MEDS: FUROSEMIDE 10 MG/ML 10 ML VIAL IV SCH ×3 (00:46→17:18)
[2019-05-09 05:33] LABS: Anisocytosis Slight; Basophils % (A) 0 %; Eosinophils # (A) 0.1 k/uL (0-0.7); Eosinophils % (A) 1 %; HCT 25.2 % (34.0-46.0); HGB 8.3 gm/dL (11.4-16.0); Lymphocytes # (A) 0.2 k/uL (1.0-4.8); Lymphocytes % (A) 2 %; MCH 33.4 pg (25.0-35.0); MCHC 32.8 g/dL (31.0-37.0); MCV 101.7 fL (80.0-100.0); Macrocytosis Moderate; Mean Platelet Volume 9.5; Monocytes # (A) 0.2 k/uL (0-1.0); Monocytes % (A) 3 %; Neutrophils # (A) 6.7 k/uL (1.3-7.7); Neutrophils % (A) 93 %; RBC 2.47 m/uL (3.80-5.40); RDW 18.6 % (11.5-15.5); WBC 7.2 k/uL (3.8-10.6)
[2019-05-09 05:34] LABS: Platelet Count 93 k/uL (150-450)
[2019-05-09 05:46] LABS: Albumin 3.2 g/dL (3.5-5.0); Calcium 7.5 mg/dL (8.4-10.2); Magnesium 2.5 mg/dL (1.6-2.3); Phosphorus 5.8 mg/dL (2.5-4.5); Potassium 4.5 mmol/L (3.5-5.1); Total Bilirubin 0.9 mg/dL (0.2-1.3); Total Protein 6.5 g/dL (6.3-8.2)
[2019-05-09 05:47] LABS: Ionized Calcium 3.9 mg/dL (4.5-5.3)
[2019-05-09] MEDS: INSULIN ASPART (NovoLOG) 100 UNIT/ML VIAL SQ SCH ×4 (07:01→21:08)
[2019-05-09] MEDS: AMIODARONE 300 MG in DEXTROSE 5% IN WATER 250 ML IV SCH ×4 (07:02→15:04)
[2019-05-09 07:08] LABS: Glucose,Whole Blood 191 mg/dL (75-99)
[2019-05-09] MEDS: IPRATROPIUM-ALBUTEROL 3 ML NEB INHALATION SCH ×4 (07:47→19:14)
[2019-05-09] MEDS: BUDESONIDE 1 MG/2 ML NEBU INHALATION SCH ×2 (07:47→19:14)
--- NOTE | 2019-05-09 07:53 | XR ---
EXAMINATION TYPE: XR chest 1V portable DATE OF EXAM: 05/09/2019 CLINICAL HISTORY: Difficulty breathing progress study. TECHNIQUE: Single AP portable upright view of the chest is obtained. COMPARISON: Chest x-ray from one day earlier and older studies. FINDINGS: Reticular interstitial changes bilaterally remain present. Persistent alveolar and interst itial increased opacities more prominent in mid to lower lungs. Persistent cardiomegaly. No large ple ural effusion or pneumothorax. Osseous structures are intact. IMPRESSION: Overall stable findings, cardiomegaly and alveolar and interstitial edema and/or infilt rates bilateral mid to lower lungs on background mild chronic parenchymal fibrosis. Correlate for SUZANNE S.
[2019-05-09] MEDS: DILTIAZEM CD 180 MG CAP.ER.24H PO SCH (08:12)
[2019-05-09] MEDS: GABAPENTIN 300 MG CAP PO SCH (08:12)
[2019-05-09] MEDS: ASPIRIN 81 MG PO SCH (08:12)
[2019-05-09] MEDS: PANTOPRAZOLE 40 MG TABLET PO SCH (08:13)
[2019-05-09] MEDS: ALPRAZolam 0.25 MG TAB PO PRN ×2 (08:14→14:13)
[2019-05-09] MEDS: FLUTICASONE 50MCG/SPRAY NASAL 16GM EA NOSTRIL SCH (08:33)
[2019-05-09] MEDS ORDERED: AMIODARONE 360 MG in DEXTROSE 5% IN WATER 200 ML IV ONE ×2 (09:13)
[2019-05-09] MEDS ORDERED: DIGOXIN 250 MCG/ML 2 ML AMP IVP ONE (09:43)
--- NOTE | 2019-05-09 10:15 | PN ---
PROGRESS NOTE This patient's events over the last 24 hours reviewed and electronic medical records reviewed. This patient has been treated with a sepsis acute renal failure and has been dialyzed. Patient has atrial fibrillation. Patient was the patient was started on amiodarone drip yesterday. Patient's heart rate still remains in the range of 130-140. She is comfortable. Patient is currently on the BiPAP. Blood pressure is 110/81 mmHg. First and second heart sounds are heard. Lungs examination revealed bilateral scattered wheezes. Patient's urine output remains poor. Chest x-ray shows improvement in the bilateral lung infiltrates. IMPRESSION: Atrial fibrillation with a persistent rapid ventricular response in spite of the amiodarone drip. We will keep the patient on amiodarone drip at 1 mg/minute. We will try the patient on 1 dose of digoxin 0.25 mg IV and after the patient is off the dialysis, we will try the patient on esmolol drip to control the rate. MMODL / IJN: [id number] /
--- NOTE | 2019-05-09 11:40 | P.PN ---
Subjective Progress Note Date: 05/09/19 Principal diagnosis: Acute sepsis, acute urinary tract infection, gram-positive bacteremia, acute renal failure I was asked to evaluate this patient for a right upper lobe pneumonia. The patient was also be more short of breath yesterday and his chest x-ray was ordered and showed a questionable infiltrate in the right upper lobe and pneumonia was suspected. Note that the patient is morbidly obese with a BMI 59.8. The patient also has history of metastatic breast cancer for which she has undergone radiation therapy to her cervical spine that was complicated by radiation-induced esophagitis and difficulties in swallowing. She has been on systemic treatment with a combination of Ibrance and Fosladex. The patient presented to the hospital because of pancytopenia and infection and this do not to be a UTI with Enterococcus faecalis and blood culture was positive with Staphylococcus Lugdunenisis , which is a coagulase-negative staph and the patient was covered with vancomycin per IDs recommendations. Time of my evaluation, the patient was afebrile. Pulse ox is 96% on room air. No significant tachycardia. No chest pain. No pleurisy. No hemoptysis. She has some chronic swelling in lower extremities bilaterally. Moist recent white count is at 1.9. Platelet count is at 75. The patient also had developed an acute kidney injury. As the patient had a normal kidney function on 04/16/2019. Creatinine is up to 4.8 and this is probably related to an ATN induced by sepsis and further complicated by possible vancomycin-induced toxicity as the patient's serum vancomycin level was quite elevated with a vancomycin level of 37.8 from May 022018 is down trending. No evidence of any hydronephrosis on the renal ultrasound. Patient was reevaluated today on 05/05/2019, patient remains in the intensive care unit, quite short of breath, intermittent episodes of cough and hemoptysis. No fever, worsening chest x-ray with bilateral interstitial edema or infiltrates, poor urine output, hence the patient was switched from IV Lasix to Lasix drip at 10 mg per hour. Worsening renal functioning and acute kidney injury, patient may require hemodialysis. Being followed by nephrology. WBC count today is 3.1 hemoglobin is 7.8 electrolytes are normal however her bicarb is low at 19 BUN is up to 63 creatinine is up to 5.25. Her creatinine on admission 5 days ago was 2.69. Presently on cefepime, off vancomycin. Cultures so far have shown Enterococcus faecalis in the urine, and Staphylococcus lugdunenesis in the blood. Those are being addressed by Dr. Zimmerman on the case, patient is requiring 5 L nasal cannula, her O2 saturation is marginal, however intermittently has been on BiPAP. And that seems to be helping much better. Chest x-ray is worrisome, hence I recommended patient be placed on Lasix drip at 10 mg per hour. And discontinued Lasix at 60 mg IV push every 6 hours. Patient was reevaluated today on 05/06/2019, patient remains in the intensive care unit, almost BiPAP dependent. Remains on Lasix drip at 10 mg per hour, and urine output seems to be in the range of 30-50 mL per hour. Chest x-ray continues to show interstitial infiltrates/edema bilaterally. Renal functioning is a bit worse, creatinine is up to 5.62. Baseline creatinine on admission was 2.69. Patient remains on 50% BiPAP, and she desaturates significantly off BiPAP. Continues to have cough and wheezing. And significantly abnormal chest x-ray. Her daughter is at bedside today, and updated on her condition and patient may end up eventually requiring intubation and mechanical ventilation, but at this point we will try to manage with BiPAP and with bronchodilators, steroids, antibiotics, and diuretics. All her cultures were reviewed again, patient is being followed by Dr. Zimmerman. WBC count today is 4.3 hemoglobin is 7.7 and electrolytes are normal BUN is 77 creatinine is 5.62. Patient was reevaluated today on 05/07/2019, patient remains in the ICU, remains on BiPAP, received hemodialysis and ultrafiltration yesterday, and 3 L of fluids were removed. After the hemodialysis, her urine output was 0, hence her Lasix infusion was discontinued. Clinically the patient felt better, breathing a bit easier, chest x-ray is basically about the same continues to show interstitial infiltrates/edema. Not much improvement noted on the chest x-ray, but clinically the patient is feeling better. WBC count today is 4.7 hemoglobin is 8.1, electrodes are normal BUN is 73 creatinine is 5.14. Reevaluated today on 05/08/2019, patient underwent dialysis yesterday and dialysis ongoing today. Patient remains on BiPAP, she is basically BiPAP dependent on IPAP of 14 EPAP of 6 and 50% FiO2. O2 saturation remains in the mid 90s, however the patient desaturates significantly with any time off BiPAP.chest x-ray is somewhat improved, improved interstitial patchy airspace disease bilaterally. But not back to normal. On physical exam , I noted less wheezing, and less rhonchi noted.CBC showed WBC of 6.6 hemoglobin is 8.4 lites are normal BUN is 63 creatinine 4.50.repeat blood cultures in the last few days have been negative/over the last 72 hours. Reevaluated today on 05/09/2019, patient has been on daily dialysis for the last 3 days. Feels better, less cough and less wheezing less shortness of breath. However remains BiPAP dependent. Chest x-ray showed some improvement, but continues to have significant interstitial infiltrates bilaterally. No wheezing and shortness of breath didn't improve and again some improvement noted on the chest x-ray. Patient is again in atrial fibrillation with RVR, and she is still on amiodarone drip as per cardiology, she was also given digoxin earlier today. Maintaining adequate blood pressure in spite of A. fib/RVR. Hemoglobin today is 8.3, WBC count is normal electrodes are normal BUN is 76 creatinine 4.54. Remains on 50% BiPAP with IPAP of 14 and EPAP of 6. Objective - Vital Signs Vital signs: Vital Signs Temp 97.9 F 05/09/19 04:00 Pulse 133 H 05/09/19 11:19 Resp 22 05/09/19 11:00 BP 110/85 05/09/19 11:00 Pulse Ox 96 05/09/19 11:00 Intake & Output 05/08/19 05/09/19 05/09/19 18:59 06:59 18:59 Intake Total 519.6 726.6 201 Output Total 6430 70 25 Balance -5910.4 656.6 176 Weight 148.3 kg 147.7 kg 147.7 kg Intake: IV 519.6 476.6 201 0.9 NS 120 210 60 Amiodarone 300 mg In 250 108 Dextrose 5% in Water 250 ml @ 0.5 MG/MIN 25 mls/hr IV .Q10H [facility] Rx#: [id number] Amiodarone 360 mg In 249.6 16.6 33 Dextrose 5% in Water 200 ml @ 1 MG/MIN 33.333 mls/ hr IV .Q6H [facility] Rx#: [id number] Dextrose 5% in Water 100 150 ml @ 618 mls/hr IV .Q10M [facility] with Amiodarone 150 mg Rx#:[id number] Intake, IV Titration 250 Amount Amiodarone 300 mg In 250 Dextrose 5% in Water 250 ml @ 0.5 MG/MIN 25 mls/hr IV .Q10H [facility] Rx#: [id number] Oral 0 Output: Urine 30 70 25 Hemodialysis 3200 Other 3200 Other: Voiding Method Indwelling Catheter Indwelling Catheter Indwelling Catheter # Voids 0 - Exam Physical Exam: obese 63-year-old female, on BiPAP seems comfortable. HEENT: Neck supple, no neck masses, no JVD. No adenopathy. HEENT:[Neck is supple.] [No neck masses.] [No thyromegaly.] [No JVD.] Chest: [Symmetrical chest expansion,less crackles, no rhonchi and no wheezes. Cardiac Exam: [Normal S1 and S2, no S3 gallop, no murmur.] Abdomen: [Obese, Soft, nontender, no megaly, no rebound, no guarding, normal bowel sounds.] Extremities: [No clubbing, 1+ bipedal edema, no cyanosis.] Good pulses bilaterally. Neurological Exam: Alert and oriented 3. [No focal neurologic deficit.] Lymphatics: No lymphadenopathy. Psychiatric: Normal mood affect and normal mental status examination. Skin: No rashes. - Labs CBC & Chem 7: 05/09/19 05:26 05/09/19 05:26 Labs: Abnormal Lab Results - Last 24 Hours (Table) 05/08/19 05/08/19 05/08/19 Range/Units 11:47 17:00 20:58 RBC (3.80-5.40) m/uL Hgb (11.4-16.0) gm/dL Hct (34.0-46.0) % MCV (80.0-100.0) fL RDW (11.5-15.5) % Plt Count (150-450) k/uL Lymphocytes # (1.0-4.8) k/uL BUN (7-17) mg/dL Creatinine (0.52-1.04) mg/dL Glucose (74-99) mg/dL POC Glucose (mg/dL) 182 H 181 H 164 H (75-99) mg/dL Calcium (8.4-10.2) mg/dL Ionized Calcium Peter (4.5-5.3) mg/dL Phosphorus (2.5-4.5) mg/dL Magnesium (1.6-2.3) mg/dL AST (14-36) U/L Albumin (3.5-5.0) g/dL Triglycerides (<150) mg/dL 05/08/19 05/09/19 05/09/19 Range/Units 22:19 05:26 05:26 RBC 2.47 L (3.80-5.40) m/uL Hgb 8.3 L (11.4-16.0) gm/dL Hct 25.2 L (34.0-46.0) % MCV 101.7 H (80.0-100.0) fL RDW 18.6 H (11.5-15.5) % Plt Count 93 L (150-450) k/uL Lymphocytes # 0.2 L (1.0-4.8) k/uL BUN 76 H (7-17) mg/dL Creatinine 4.54 H (0.52-1.04) mg/dL Glucose 182 H (74-99) mg/dL POC Glucose (mg/dL) 166 H (75-99) mg/dL Calcium 7.5 L (8.4-10.2) mg/dL Ionized Calcium Peter 3.9 L (4.5-5.3) mg/dL Phosphorus 5.8 H (2.5-4.5) mg/dL Magnesium 2.5 H (1.6-2.3) mg/dL AST 50 H (14-36) U/L Albumin 3.2 L (3.5-5.0) g/dL Triglycerides 173 H (<150) mg/dL 05/09/19 Range/Units 06:57 RBC (3.80-5.40) m/uL Hgb (11.4-16.0) gm/dL Hct (34.0-46.0) % MCV (80.0-100.0) fL RDW (11.5-15.5) % Plt Count (150-450) k/uL Lymphocytes # (1.0-4.8) k/uL BUN (7-17) mg/dL Creatinine (0.52-1.04) mg/dL Glucose (74-99) mg/dL POC Glucose (mg/dL) 191 H (75-99) mg/dL Calcium (8.4-10.2) mg/dL Ionized Calcium Peter (4.5-5.3) mg/dL Phosphorus (2.5-4.5) mg/dL Magnesium (1.6-2.3) mg/dL AST (14-36) U/L Albumin (3.5-5.0) g/dL Triglycerides (<150) mg/dL Microbiology - Last 24 Hours (Table) 05/05/19 04:39 Blood Culture - Preliminary Blood No Growth after 96 hours 05/05/19 04:12 Blood Culture - Preliminary Blood No Growth after 96 hours 05/03/19 23:18 Blood Culture - Preliminary Blood No Growth after 120 hours Assessment and Plan Assessment: Impression: 1 shortness of breath with acute hypoxic respiratory failure secondary to sepsis, urinary tract infection, anemia, and suspect pulmonary edema which is possibly cardiogenic or noncardiogenic in nature. at this point I believe that the combination of both. She does have elevated BNP level, echocardiogram showed mildly impaired ejection fraction 45%, severe aortic stenosis is also noted on the echocardiogram. Peak gradient across the aortic valve is 76 with a mean of 43.8 . Patient seems to be responding well to hemodialysis and ultrafiltration. Over 3 L were removed yesterday, and few liters will be removed today. However during the dialysis, patient went into atrial fibrillation with RVR, and she is about to be started on amiodarone drip. 2 acute kidney injury secondary to ATN, possible vancomycin nephrotoxicity. 3 gram-positive bacteremia , blood cultures have been negative over the last 72 hours.Remains on antibiotics as per infectious disease on the case. 4 Enterococcus faecalis urinary tract infection, being addressed by infectious disease. 5 metastatic breast cancer patient has been on chemotherapy until recently. The possibility of lymphangitic carcinomatosis from breast cancer metastatic to the lungs is not entirely ruled out, however the patient is not a good candidate for bronchoscopy and biopsy at this point. 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 8 chemotherapy induced pancytopenia 9 metabolic acidosis secondary to sepsis and acute kidney injury. 10 atrial fibrillation with RVR, patient will be started on amiodarone drip today 05/08/2019, patient has history of paroxysmal atrial fibrillation. Recommendation: Continue present supportive care measures including BiPAP, titrate FiO2 accordingly. hemodialysis/ultrafiltration, diuretics, antibiotics, steroids, bronchodilators, GI and DVT prophylaxis, nutritional support, continue amiodarone, digoxin as per cardiology for A. fib/RVR prognosis remains extremely poor and guarded. We'll continue to follow. o Time with Patient: Less than 30
[2019-05-09 11:57] LABS: Glucose,Whole Blood 153 mg/dL (75-99)
[2019-05-09] MEDS: CEFEPIME 1 GM in SODIUM CHLORIDE 0.9% 50 ML IVPB SCH (12:03)
--- NOTE | 2019-05-09 12:59 | PN ---
PROGRESS NOTE DATE OF SERVICE: 05/08/2019 A 64-year-old woman who was admitted with multiple medical issues, is being closely monitored. REVIEW OF SYSTEMS: Could not be taken. Patient is BiPAP dependent. MEDICATIONS: Reviewed and include: 1. [place] 5 mg p.r.n. 2. DuoNeb q.i.d. and p.r.n. 3. Amiodarone drip. 4. Eliquis 5 mg p.o. b.i.d. 5. Aspirin 160 mg p.o. daily. 6. Lipitor 40 mg q.h.s. 7. Pulmicort 1 mg b.i.d. 8. Mycelex. 9. Cardizem CD. 10.Lasix 60 mg IV q.6. 11.Neurontin 300 mg daily. 12.Solu-Medrol 40 IV q.6. 13.Singular. 14.Narcan. 15.Protonix. 16.MiraLAX. 17.Silvadene. 18.Sodium bicarb. 19.Carafate. MMODL / IJN: [id number] /
--- NOTE | 2019-05-09 13:11 | PN ---
PROGRESS NOTE DATE OF SERVICE: 05/09/2019 This 64-year-old woman with a past medical history of multiple medical problems was admitted with right lower lobe pneumonia as well as CHF. Patient also had renal failure, hemodialysis initiated. The patient is still short of breath. The patient is on BiPAP at this time. Patient monitored in ICU. The patient also received hemodialysis. Patient had chest x-ray with features of ARDS, slightly improving at this time but the patient is continuously BiPAP dependent. Patient being closely monitored. Patient is on broad-spectrum IV antibiotics and multiple other medications also. Multiple consultants including Cardiology and Pulmonology following the patient closely. Patient also had atrial fibrillation, which is rather refractory. Amiodarone drip was initiated. Patient started on digoxin and also being planned in case of recurrence. PAST MEDICAL HISTORY: Reviewed. REVIEW OF SYSTEMS: CARDIOVASCULAR SYSTEM: As mentioned earlier. RESPIRATORY SYSTEM: As mentioned earlier. GI: No nausea. : No dysuria. NERVOUS SYSTEMS: No numbness or weakness. CURRENT MEDICATIONS: Current medications are reviewed and include: 1. [place] 5 mg q.4 p.r.n. 2. DuoNeb q.i.d. and p.r.n. 3. Xanax 0.25 t.i.d. 4. Amiodarone drip. 5. Eliquis 5 mg p.o. b.i.d. 6. Aspirin 162 mg p.o. daily. 7. Lipitor 40 mg p.o. q.h.s. 8. Pulmicort 1 mg b.i.d. 9. Cefepime 1 gram IV daily. 10.Mycelex cream. 11.Cardizem CD 180 mg p.o. daily. 12.Diltiazem drip. 13.Flonase. 14.Lasix 60 IV q.8h. 15.Neurontin 300 mg p.o. daily. 16.NovoLog. 17.Solu-Medrol 40 IV q. 18.Singulair 10 mg q.h.s. 19.Protonix 40 mg daily. 20.MiraLAX. 21.Senokot-S 2 tablets daily. 22.Silvadene. 23.Sodium bicarb 1300 mg p.o. b.i.d. 24.Carafate 1 gram p.o. a.c. and at bedtime. PHYSICAL EXAMINATION: Patient is alert and oriented x2. Pulse is 135, irregular. Blood pressure 110/85, respiration 22, temperature is normal, pulse ox 96% on BiPAP. HEENT: Conjunctivae normal. NECK: No jugular venous distention. CARDIOVASCULAR: S1, S2 muffled. Tachycardic. RESPIRATORY: Breath efforts are markedly increased. Patient is on BiPAP. Bilateral scattered rhonchi and crackles. Expiratory wheezing also present. ABDOMEN: Soft, obese, nontender. LEGS: No edema. NERVOUS SYSTEM: Diffusely weak. LAB INVESTIGATIONS: Lab Investigations at this time shows WBC 7.2, hemoglobin is 8.3, sodium 138, potassium 4.5, creatinine is 4.54 and calcium 7.5, magnesium is 2.5. Triglycerides is 173. ASSESSMENT: 1. Acute right lower lobe pneumonia with possible neutropenic sepsis, present on admission. 2. Acute renal failure with acute tubular necrosis multifactorial with prerenal factors, worsening, started on new onset hemodialysis. 3. Fluid overload, congestive heart failure acute exacerbation with acute on chronic systolic dysfunction, ejection fraction 40% to 50% with severe aortic stenosis, moderate to severe aortic regurgitation and mild to moderate tricuspid regurgitation. 4. Possible ARDS. 5. Atrial fibrillation with fast ventricular rate. 6. Acute hypoxic respiratory failure on BiPAP secondary to above. 7. Enterococcus faecalis vancomycin sensitive from the urine culture. 8. Mary albicans from the sputum. 9. Pancytopenia secondary to chemotherapy. 10.Carcinoma of breast with metastasis, spine and liver. 11.Hyponatremia. 12.Increased AST. 13.Obesity with body mass index of 63.9. 14.Hypertension. 15.History of left-sided cerebrovascular accident. 16.History of breast surgery. 17.Remote history of nicotine dependence. RECOMMENDATIONS AND DISCUSSION: Recommend to continue current medications, continue with monitoring and symptomatic treatment. Otherwise continue with the bronchodilators. Continue with amiodarone drip as planned. Digoxin has been initiated. We will check the digoxin level also periodically because of renal failure. Otherwise, continue to monitor. Chest x- ray showed very minimal improvement, but however the patient continues to be extremely short of breath and BiPAP dependent. Further recommendations to follow. Prognosis guarded. MMODL / IJN: [id number] / MTDD
[2019-05-09] MEDS: ESMOLOL IN SODIUM CHLORIDE PMX 2.5 GM in SALINE 1 250ML.BAG IV SCH (14:30)
--- NOTE | 2019-05-09 14:57 | P.PN ---
Subjective Progress Note Date: 05/09/19 Principal diagnosis: Bacteremia Status Post 3 Diaylsis treatments.Creatinine 4.54 today, continues with significant interstitial infiltrates bilaterally. SOB appears improved clin ically today. There is some improvement noted on the chest x-ray. Atrial fibrillation with RVR, amiodarone drip managed by cardiology. Objective - Vital Signs Vital signs: Vital Signs Temp 97.8 F 05/09/19 11:54 Pulse 118 H 05/09/19 14:00 Resp 21 05/09/19 14:00 BP 94/70 05/09/19 14:00 Pulse Ox 97 05/09/19 14:42 Intake & Output 05/08/19 05/09/19 05/09/19 18:59 06:59 18:59 Intake Total 519.6 726.6 410 Output Total 6430 70 3045 Balance -5910.4 656.6 -2635 Weight 148.3 kg 147.7 kg 147.7 kg Intake: IV 519.6 476.6 410 0.9 NS 120 210 70 Amiodarone 300 mg In 250 108 Dextrose 5% in Water 250 ml @ 0.5 MG/MIN 25 mls/hr IV .Q10H [facility] Rx#: [id number] Amiodarone 360 mg In 249.6 16.6 132 Dextrose 5% in Water 200 ml @ 1 MG/MIN 33.333 mls/ hr IV .Q6H [facility] Rx#: [id number] Cefepime 2 gm In Sodium 100 Chloride 0.9% 100 ml @ 200 mls/hr IVPB Q12H [facility] Rx#:[id number] Dextrose 5% in Water 100 150 ml @ 618 mls/hr IV .Q10M [facility] with Amiodarone 150 mg Rx#:[id number] Intake, IV Titration 250 Amount Amiodarone 300 mg In 250 Dextrose 5% in Water 250 ml @ 0.5 MG/MIN 25 mls/hr IV .Q10H [facility] Rx#: [id number] Oral 0 Output: Urine 30 70 45 Hemodialysis 3200 3000 Other 3200 Other: Voiding Method Indwelling Catheter Indwelling Catheter Indwelling Catheter # Voids 0 0 - Exam General: Alert and Oriented x3, No Acute Distress, lethargic Head: Normocytic, Atraumatic Neck: Supple Mouth: No Lesions, No Thrush Eyes: Non-sclerotic No Palpable cervical, supraclavicular, axillary adenopathy Heart:Iregg irreg Lungs: Increased effort, Diminished, bipap Abdomen: Soft, Non-Distended, Non-Tended, BSx4 Neurological: No Focal Defects: No sensory or motor deficits noted - Labs CBC & Chem 7: 05/09/19 05:26 05/09/19 05:26 Labs: Abnormal Lab Results - Last 24 Hours (Table) 05/08/19 05/08/19 05/08/19 Range/Units 17:00 20:58 22:19 RBC (3.80-5.40) m/uL Hgb (11.4-16.0) gm/dL Hct (34.0-46.0) % MCV (80.0-100.0) fL RDW (11.5-15.5) % Plt Count (150-450) k/uL Lymphocytes # (1.0-4.8) k/uL BUN (7-17) mg/dL Creatinine (0.52-1.04) mg/dL Glucose (74-99) mg/dL POC Glucose (mg/dL) 181 H 164 H 166 H (75-99) mg/dL Calcium (8.4-10.2) mg/dL Ionized Calcium Peter (4.5-5.3) mg/dL Phosphorus (2.5-4.5) mg/dL Magnesium (1.6-2.3) mg/dL AST (14-36) U/L Albumin (3.5-5.0) g/dL Triglycerides (<150) mg/dL 05/09/19 05/09/19 05/09/19 Range/Units 05:26 05:26 06:57 RBC 2.47 L (3.80-5.40) m/uL Hgb 8.3 L (11.4-16.0) gm/dL Hct 25.2 L (34.0-46.0) % MCV 101.7 H (80.0-100.0) fL RDW 18.6 H (11.5-15.5) % Plt Count 93 L (150-450) k/uL Lymphocytes # 0.2 L (1.0-4.8) k/uL BUN 76 H (7-17) mg/dL Creatinine 4.54 H (0.52-1.04) mg/dL Glucose 182 H (74-99) mg/dL POC Glucose (mg/dL) 191 H (75-99) mg/dL Calcium 7.5 L (8.4-10.2) mg/dL Ionized Calcium Peter 3.9 L (4.5-5.3) mg/dL Phosphorus 5.8 H (2.5-4.5) mg/dL Magnesium 2.5 H (1.6-2.3) mg/dL AST 50 H (14-36) U/L Albumin 3.2 L (3.5-5.0) g/dL Triglycerides 173 H (<150) mg/dL 05/09/19 Range/Units 11:45 RBC (3.80-5.40) m/uL Hgb (11.4-16.0) gm/dL Hct (34.0-46.0) % MCV (80.0-100.0) fL RDW (11.5-15.5) % Plt Count (150-450) k/uL Lymphocytes # (1.0-4.8) k/uL BUN (7-17) mg/dL Creatinine (0.52-1.04) mg/dL Glucose (74-99) mg/dL POC Glucose (mg/dL) 153 H (75-99) mg/dL Calcium (8.4-10.2) mg/dL Ionized Calcium Peter (4.5-5.3) mg/dL Phosphorus (2.5-4.5) mg/dL Magnesium (1.6-2.3) mg/dL AST (14-36) U/L Albumin (3.5-5.0) g/dL Triglycerides (<150) mg/dL Microbiology - Last 24 Hours (Table) 05/05/19 04:39 Blood Culture - Preliminary Blood No Growth after 96 hours 05/05/19 04:12 Blood Culture - Preliminary Blood No Growth after 96 hours 05/03/19 23:18 Blood Culture - Preliminary Blood No Growth after 120 hours Assessment and Plan Plan: Pancytopenia: - Secondary to chemotherapy with ibrance and Radiation - Hold chemotherapy at this time - Overall levels improved Acute Renal Insufficiency: Maintained - Monitor Daily. - Defer to Nephrology Metastatic Breast cancer - Bone - ?Progression - Xgeva,Faslodex and Ibrance recently prescribed at progression - XRT to spine recently completed Neoplastic Related Pain: - Continue current pain regimen - Add bowel protocol. Acute Respiratory failure: - In ICU Care - Pulmonary Following Atrial Fibrillation with RVR: - On Amio Drip per cardiology
--- NOTE | 2019-05-09 15:11 | PN ---
PROGRESS NOTE Patient is seen for followup for acute kidney injury. She is currently seen on hemodialysis. Heart rate is gone up to about 140-150 per minute. The blood pressure is stable in the 110s. We are going for about 2.3 L. PHYSICAL EXAMINATION: On examination today, patient is comfortable, awake. She is not in any acute distress. Blood pressure 101/81, heart rate 150 per minute. She is afebrile. Examination of the heart S1, S2. Examination of the lungs, bilateral breath sounds are heard. Decreased breath sounds at the bases. Abdomen is soft, morbidly obese. Examination of the lower extremities shows 1+ edema bilaterally. [employer] exam is grossly intact. LABS: Show hemoglobin 8.3, white cell count 7.2. Sodium 138, potassium 4.5, BUN 76, serum creatinine 4.54. ASSESSMENT: 1. Acute kidney injury, acute tubular necrosis and secondary to vancomycin toxicity, currently oliguric and hemodialysis dependent. We will arrange for hemodialysis again in a.m. if the patient is hemodynamically stable. We have had about 12 L of ultrafiltration over the last 4 days. Patient's respiratory status has improved significantly. 2. Volume overload, currently improved. 3. Acute hypoxic respiratory failure secondary to volume overload, pulmonary edema, maintained on BiPAP, currently improved. 4. Staph lugdunensis bacteremia. Repeat blood cultures negative. 5. Enterococcus faecalis urinary tract infection. 6. Atrial fibrillation with rapid ventricular rate, maintained on amiodarone drip. Patient is seen by Cardiology. She did get a dose of digoxin as well today. PLAN: Repeat hemodialysis in a.m. if patient is hemodynamically stable and we will repeat dialysis again on Sunday. MMODL / IJN: [id number] /
[2019-05-09 17:12] LABS: Glucose,Whole Blood 196 mg/dL (75-99)
[2019-05-09 21:10] LABS: Glucose,Whole Blood 194 mg/dL (75-99)
--- NOTE | 2019-05-09 21:21 | P.PN ---
Subjective Progress Note Date: 05/09/19 Pleasant 63-year-old female is a complex past medical history regarding her breast carcinoma. 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 Because of increasing pain and neurological difficulties she was evaluated was treated with radiation therapy to the cervical and thoracic spine . She Developed extensive radiation dermatitis and esophagitis. She was hospitalized [facility] and with treatment of the skin and esophagitis she had marked improvement. She has had a subsequent hospitalization at the outside facility where she had a urinary tract infection. She now presents to Hospital feeling poorly with evidence significant weakness with fever 102, chills and evidence of new abnormality. Chest x-ray acute renal failure and generalized malaise. With fluid resuscitation antibiotic therapy she started to feel somewhat better. Cultures are in process with concerns to urinary tract infection as a source of the current bout of sepsis. 05/02/2017 the patient's renal failure continues but her fevers improved. With the elevated vancomycin level this is put on hold. 05/04/2019 patient continues to have increasing creatinine, and feels poorly with her acute renal failure. She is having some shakiness to her arms and legs, weakness and poor appetite. However is not having nausea or emesis. All the food does taste poorly. She's had some increased difficulties with her oral cavity possibly thrush. 05/05/2019 the patient has had a significant worsening of her status overnight. She became profoundly short of breath and required transfusions and its care unit where she's now been placed on BiPAP has been titrated down to 50% now she is feeling considerably better bacillin well. She's having no chest pains. She was seen by cardiology there is evidence of volume overload as well as worsening of her aortic stenosis and regurgitation and pulmonary hypertension. The the treatment of failure has stabilized with no further increase of her creatinine. Vancomycin level is still therapeutic but falling. 05/06/2019 patient's volume status became more problematic, more short of breath She's been seen by the nephrology and dialysis is initiated. Approximately 2- 1/2 L of fluid have been removed and she is now less short of breath but emotional upset. It is her 64th birthday. 05/08/2019 patient has had further cycles of hemodialysis and is now approximately 10 L of fluid removed by ultrafiltration, is having some improvement over status but is still having a significant acute lung injury with the significant ongoing shortness of breath and BiPAP dependence. Her mood is poor and she is anxious about her overall care. 05/09/2019 patient no longer on bipap now on high flow O2 and doing well. fells better, and is hungry Objective - Vital Signs Vital signs: Vital Signs Temp 98.1 F 05/09/19 16:00 Pulse 107 H 05/09/19 19:27 Resp 18 05/09/19 19:27 BP 103/64 05/09/19 19:00 Pulse Ox 94 L 05/09/19 19:00 Intake & Output 05/09/19 05/09/19 05/10/19 06:59 18:59 06:59 Intake Total 726.6 830 147.331 Output Total 70 3060 Balance 656.6 -2230 147.331 Weight 147.7 kg 147.7 kg Intake: IV 476.6 510 0.9 NS 210 70 Amiodarone 300 mg In 250 208 Dextrose 5% in Water 250 ml @ 0.5 MG/MIN 25 mls/hr IV .Q10H [facility] Rx#: [id number] Amiodarone 360 mg In 16.6 132 Dextrose 5% in Water 200 ml @ 1 MG/MIN 33.333 mls/ hr IV .Q6H [facility] Rx#: [id number] Cefepime 2 gm In Sodium 100 Chloride 0.9% 100 ml @ 200 mls/hr IVPB Q12H [facility] Rx#:[id number] Intake, IV Titration 250 147.331 Amount Amiodarone 300 mg In 250 Dextrose 5% in Water 250 ml @ 0.5 MG/MIN 25 mls/hr IV .Q10H [facility] Rx#: [id number] Esmolol in Sodium 147.331 Chloride Pmx 2.5 gm In Saline 1 250ml.bag @ 25 MCG/KG/MIN 22.155 mls/hr IV .[id number] [facility] Rx#: [id number] Oral 320 Output: Urine 70 60 Hemodialysis 3000 Other: Voiding Method Indwelling Catheter Indwelling Catheter # Voids 0 - Exam 63-year-old woman presents to Hospital feeling poorly now with a significant worsening shortness of breath, BiPAP no longer used but on high richard oxygen HEENT: Anicteric conjunctiva are pink and moist nasal mucosa grossly intact without significant lesions, and the very posterior aspect of the pharynx is now some mild white coating consistent with early thrush. Neck: The neck is supple without significant lymphadenopathy or thyromegaly. Lungs: There is symmetrical air entry with coarse crackles and wheezing to the lung chiang basilar crackles are heard Heart: Regular with the 2/6 systolic murmur left sternal border Abdomen: Obese, Positive bowel sounds soft minimal tenderness is noted in the right upper quadrant without palpable masses or organomegaly. There was no guarding or rebound. Extremities: The upper extremities have excellent pulses they are symmetric, no significant petechiae or telangiectasia. No splinter hemorrhages were noted. The lower extremities have trace edema pulses 2+ and symmetric Neuro: Awake alert oriented to person place and time. There are no acute new gross focal sensory motor deficits. Skin reveals evidence of the resolution of the radiation dermatitis does have some residual color change but there is nothing ulcer. She is not having any further difficulties with the esophagitis either although does have a bit of dry mouth and throat. - Labs CBC & Chem 7: 05/09/19 05:26 05/09/19 05:26 Labs: Abnormal Lab Results - Last 24 Hours (Table) 05/08/19 05/09/19 05/09/19 Range/Units 22:19 05:26 05:26 RBC 2.47 L (3.80-5.40) m/uL Hgb 8.3 L (11.4-16.0) gm/dL Hct 25.2 L (34.0-46.0) % MCV 101.7 H (80.0-100.0) fL RDW 18.6 H (11.5-15.5) % Plt Count 93 L (150-450) k/uL Lymphocytes # 0.2 L (1.0-4.8) k/uL BUN 76 H (7-17) mg/dL Creatinine 4.54 H (0.52-1.04) mg/dL Glucose 182 H (74-99) mg/dL POC Glucose (mg/dL) 166 H (75-99) mg/dL Calcium 7.5 L (8.4-10.2) mg/dL Ionized Calcium Peter 3.9 L (4.5-5.3) mg/dL Phosphorus 5.8 H (2.5-4.5) mg/dL Magnesium 2.5 H (1.6-2.3) mg/dL AST 50 H (14-36) U/L Albumin 3.2 L (3.5-5.0) g/dL Triglycerides 173 H (<150) mg/dL 05/09/19 05/09/19 05/09/19 Range/Units 06:57 11:45 17:00 RBC (3.80-5.40) m/uL Hgb (11.4-16.0) gm/dL Hct (34.0-46.0) % MCV (80.0-100.0) fL RDW (11.5-15.5) % Plt Count (150-450) k/uL Lymphocytes # (1.0-4.8) k/uL BUN (7-17) mg/dL Creatinine (0.52-1.04) mg/dL Glucose (74-99) mg/dL POC Glucose (mg/dL) 191 H 153 H 196 H (75-99) mg/dL Calcium (8.4-10.2) mg/dL Ionized Calcium Peter (4.5-5.3) mg/dL Phosphorus (2.5-4.5) mg/dL Magnesium (1.6-2.3) mg/dL AST (14-36) U/L Albumin (3.5-5.0) g/dL Triglycerides (<150) mg/dL 05/09/19 Range/Units 20:58 RBC (3.80-5.40) m/uL Hgb (11.4-16.0) gm/dL Hct (34.0-46.0) % MCV (80.0-100.0) fL RDW (11.5-15.5) % Plt Count (150-450) k/uL Lymphocytes # (1.0-4.8) k/uL BUN (7-17) mg/dL Creatinine (0.52-1.04) mg/dL Glucose (74-99) mg/dL POC Glucose (mg/dL) 194 H (75-99) mg/dL Calcium (8.4-10.2) mg/dL Ionized Calcium Peter (4.5-5.3) mg/dL Phosphorus (2.5-4.5) mg/dL Magnesium (1.6-2.3) mg/dL AST (14-36) U/L Albumin (3.5-5.0) g/dL Triglycerides (<150) mg/dL Microbiology - Last 24 Hours (Table) 05/05/19 04:39 Blood Culture - Preliminary Blood No Growth after 96 hours 05/05/19 04:12 Blood Culture - Preliminary Blood No Growth after 96 hours 05/03/19 23:18 Blood Culture - Preliminary Blood No Growth after 120 hours Laboratory Results WBC 7.2 k/uL (3.8-10.6) 05/09/19 05:26 RBC 2.47 m/uL (3.80-5.40) L 05/09/19 05:26 Hgb 8.3 gm/dL (11.4-16.0) L 05/09/19 05:26 Hct 25.2 % (34.0-46.0) L 05/09/19 05:26 MCV 101.7 fL (80.0-100.0) H 05/09/19 05:26 MCH 33.4 pg (25.0-35.0) 05/09/19 05:26 MCHC 32.8 g/dL (31.0-37.0) 05/09/19 05:26 RDW 18.6 % (11.5-15.5) H 05/09/19 05:26 Plt Count 93 k/uL (150-450) L 05/09/19 05:26 Neutrophils % 93 % 05/09/19 05:26 Neutrophils % (Manual) 86 % 05/02/19 06:57 Band Neutrophils % 2 % 05/02/19 06:57 Lymphocytes % 2 % 05/09/19 05:26 Lymphocytes % (Manual) 6 % 05/02/19 06:57 Monocytes % 3 % 05/09/19 05:26 Monocytes % (Manual) 4 % 05/02/19 06:57 Eosinophils % 1 % 05/09/19 05:26 Eosinophils % (Manual) 2 % 05/02/19 06:57 Basophils % 0 % 05/09/19 05:26 Neutrophils # 6.7 k/uL (1.3-7.7) 05/09/19 05:26 Neutrophils # (Manual) 2.00 k/uL (1.3-7.7) 05/02/19 06:57 Lymphocytes # 0.2 k/uL (1.0-4.8) L 05/09/19 05:26 Lymphocytes # (Manual) 0.14 k/uL (1.0-4.8) L 05/02/19 06:57 Monocytes # 0.2 k/uL (0-1.0) 05/09/19 05:26 Monocytes # (Manual) 0.09 k/uL (0-1.0) 05/02/19 06:57 Eosinophils # 0.1 k/uL (0-0.7) 05/09/19 05:26 Eosinophils # (Manual) 0.05 k/uL (0-0.7) 05/02/19 06:57 Basophils # 0.0 k/uL (0-0.2) 05/09/19 05:26 Nucleated RBCs 0 /100 WBC (0-0) 05/02/19 06:57 Manual Slide Review Performed 05/03/19 08:24 Large Platelets Present 04/30/19 11:43 Hypochromasia Slight 05/04/19 08:08 Poikilocytosis (manual Present 05/02/19 06:57 Anisocytosis Slight 05/09/19 05:26 Anisocytosis (manual) Present 05/01/19 07:16 Macrocytosis Moderate 05/09/19 05:26 Rouleaux Present 05/02/19 06:57 PT 10.7 sec (9.0-12.0) 05/01/19 12:37 INR 1.0 (<1.2) 05/01/19 12:37 APTT 26.3 sec (22.0-30.0) 05/01/19 12:37 Sodium 138 mmol/L (137-145) 05/09/19 05:26 Potassium 4.5 mmol/L (3.5-5.1) 05/09/19 05:26 Chloride 102 mmol/L (98-107) 05/09/19 05:26 Carbon Dioxide 23 mmol/L (22-30) 05/09/19 05:26 Anion Gap 13 mmol/L 05/09/19 05:26 BUN 76 mg/dL (7-17) H 05/09/19 05:26 Creatinine 4.54 mg/dL (0.52-1.04) H 05/09/19 05:26 Est GFR (CKD-EPI)AfAm 11 (>60 ml/min/1.73 sqM) 05/09/19 05:26 Est GFR (CKD-EPI)NonAf 10 (>60 ml/min/1.73 sqM) 05/09/19 05:26 Glucose 182 mg/dL (74-99) H 05/09/19 05:26 POC Glucose (mg/dL) 194 mg/dL (75-99) H 05/09/19 20:58 POC Glu Switchboard Operator Receptionist ID Artemio Menezes 05/09/19 20:58 Plasma Lactic Acid Jon 0.9 mmol/L (0.7-2.0) 05/05/19 08:15 Calcium 7.5 mg/dL (8.4-10.2) L 05/09/19 05:26 Ionized Calcium Peter 3.9 mg/dL (4.5-5.3) L 05/09/19 05:26 Phosphorus 5.8 mg/dL (2.5-4.5) H 05/09/19 05:26 Magnesium 2.5 mg/dL (1.6-2.3) H 05/09/19 05:26 Total Bilirubin 0.9 mg/dL (0.2-1.3) 05/09/19 05:26 AST 50 U/L (14-36) H 05/09/19 05:26 ALT 27 U/L (9-52) 05/09/19 05:26 Alkaline Phosphatase 117 U/L (38-126) 05/09/19 05:26 NT-Pro-B Natriuret Pep 16074 pg/mL 05/05/19 00:23 Total Protein 6.5 g/dL (6.3-8.2) 05/09/19 05:26 Albumin 3.2 g/dL (3.5-5.0) L 05/09/19 05:26 Triglycerides 173 mg/dL (<150) H 05/09/19 05:26 Urine Color Dark Brown 04/30/19 13:00 Urine Appearance Turbid (Clear) H 04/30/19 13:00 Urine pH 5.0 (5.0-8.0) 04/30/19 13:00 Ur Specific [place] 1.016 (1.001-1.035) 04/30/19 13:00 Urine Protein 2+ (Negative) H 04/30/19 13:00 Urine Glucose (UA) Negative (Negative) 04/30/19 13:00 Urine Ketones Negative (Negative) 04/30/19 13:00 Urine Blood Large (Negative) H 04/30/19 13:00 Urine Nitrite Negative (Negative) 04/30/19 13:00 Urine Bilirubin Negative (Negative) 04/30/19 13:00 Urine Urobilinogen 4.0 mg/dL (<2.0) 04/30/19 13:00 Ur Leukocyte Esterase Large (Negative) H 04/30/19 13:00 Urine RBC >182 /hpf (0-5) H 04/30/19 13:00 Urine WBC 40 /hpf (0-5) H 04/30/19 13:00 Urine WBC Clumps Occasional /hpf (None) H 04/30/19 13:00 Ur Squamous Epith Cells 13 /hpf (0-4) H 04/30/19 13:00 Urine Bacteria Moderate /hpf (None) H 04/30/19 13:00 Urine Mucus Occasional /hpf (None) H 04/30/19 13:00 Random Vancomycin 16.4 ug/mL 05/06/19 04:06 Serum ANNE-MARIE Interpret SEE NOTE 05/03/19 23:18 Urine Immunofixation SEE NOTE 05/03/19 14:30 LOUANN Screen NEGATIVE (NEGATIVE) 05/03/19 23:18 c-ANCA <1:20 Titer (<1:20) 05/03/19 23:18 p-ANCA <1:20 Titer (<1:20) 05/03/19 23:18 Double Strand DNA Ab NEGATIVE (NEGATIVE) 05/03/19 23:18 Anti-DNA Ab Interp <1.0 IU/mL 05/03/19 23:18 Complement C3 117.0 mg/dL (80.0-207.0) 05/03/19 23:18 Complement C4 16.4 mg/dL (10.0-53.0) 05/03/19 23:18 Tot Complement (CH50) 92 U/mL (42 - 95) 05/06/19 04:06 Hepatitis A IgM Ab Non-Reactive (Non-Reactive) 05/03/19 23:18 Hep Bs Antigen Non-Reactive (Non-Reactive) 05/06/19 14:00 Hep Bs Antibody Non-Reactive (Non-Reactive) 05/05/19 14:00 Hep Bs Antibody, Quant 3.5 mIU/mL 05/05/19 14:00 Hep B Core Total Ab Non-Reactive (Non-Reactive) 05/06/19 14:00 Hep B Core IgM Ab Non-Reactive (Non-Reactive) 05/03/19 23:18 Hep C IgG Ab Non-Reactive (Non-Reactive) 05/03/19 23:18 Influenza Type A RNA Not Detected (Not Detectd) 04/30/19 13:04 Influenza Type B (PCR) Not Detected (Not Detectd) 04/30/19 13:04 Microbiology 05/05/19 04:39 Blood Blood Culture - Preliminary No Growth after 96 hours 05/05/19 04:12 Blood Blood Culture - Preliminary No Growth after 96 hours 05/03/19 23:18 Blood Blood Culture - Preliminary No Growth after 120 hours 04/30/19 11:43 Blood Blood Culture Gram Stain - Final 04/30/19 11:43 Blood Blood Culture - Final Staphylococcus lugdunenisis 05/02/19 09:21 Sputum Gram Stain - Final 05/02/19 09:21 Sputum Sputum Culture - Final Mary albicans 04/30/19 13:00 Urine,Voided Urine Culture - Final Enterococcus faecalis 04/30/19 11:43 Blood Blood Culture - Final Assessment and Plan (1) Acute renal failure Current Visit: Yes Status: Acute Priority: High Code(s): N17.9 - ACUTE KIDNEY FAILURE, UNSPECIFIED SNOMED Code(s): 64369371 (2) Gram-positive cocci bacteremia Current Visit: No Status: Acute Code(s): R78.81 - BACTEREMIA SNOMED Code(s): 417152982245 (3) Metastatic breast carcinoma Current Visit: Yes Status: Chronic Priority: Medium Code(s): C50.919 - MALIGNANT NEOPLASM OF UNSP SITE OF UNSPECIFIED FEMALE BREAST SNOMED Code(s): 262751221 (4) Urinary tract infection Narrative/Plan: 63-year-old woman who has a history of the metastaticBreast carcinoma with evidence of significant metastasis to the skeleton as well as liver metastasis presents to Hospital feeling poorly with another bout of fever chills malaise occurring after her recent treatment with chemotherapy. Been seen by her oncology team and chemotherapy is now on hold. He does not have severe neutropenia and is being monitored. There is evidence of urinary tract infection is likely etiology her current sepsis and laboratories: Positive blood culture with gram-positive cocci. She's had several prior blood cultures with gram-positive cocci that has been staphylococcus ludegensis, which is a coagulase-negative staph and since the patient does not have an indwelling catheter has not been thought to be a significant pathogen. Somewhat concerning if it continues to be found. Urine culture is showing evidence of gram-positive cocci and constantly vancomycin therapy is being utilized as well as Rocephin until there is further data. She has developed acute renal failure and consequently very close monitoring with vancomycin therapy is indicated we'll try to limit the dosing as much as possible. Nephrology will be seeing her for her acute increase of her creatinine to 3.46. 2-D echocardiogram has been requested and she shall be monitored. 05/02/2018 dear culture now shows evidence of enterococcus blood cultures are growing coagulase negative staph. Antibiotic therapy will now be D escalated. The Rocephin and vancomycin are discontinued. Vancomycin level currently is elevated. Once his level falls to less than 15 will then be able to initiate alternative antibiotic therapy for the treatment of the enterococcus. If blood cultures remain negative would not need further IV antibiotic therapy. 05/04/2019 the patient continues to feel very poorly with evidence of her acute renal failure the toxicity associated with that. The vancomycin level has dropped to 23 and likely will be subtherapeutic and the next day or so. At that time with initiate by therapy to complete the treatment of her enterococcal infection. Nephrology is following and continue to contemplate the need for renal replacement therapy. The patient's blood cultures are being repeated to ensure that the foot was negative staph is not persistent, is noted he has been seen on several occasions in the past, but she does not have any indwelling catheters. 05/05/2019 the patient has had a significant worsening of her status development of respiratory failure requiring BiPAP therapy with evidence of congestive heart failure and worsening underlying cardiac function. Aortic stenosis and regurgitation symptoms considerably worse in her pulmonary hypertension is worse. With diuresis she is having less short of breath her BiPAP as tolerated 50% The vancomycin level will likely come subtherapeutic tomorrow and that will consider alteration of antibiotic therapy vancomycin is being utilized for the enterococcal urinary tract infection 05/06/2019 patient does feel slightly better with her hemodialysis it is started today. 2 half liters of fluid removed the profound shortness of breath is starting to improve. She will have dialysis again in the morning. Vancomycin level is being followed when subtherapeutic we'll need to consider if she needs further antibiotic therapy for her enterococcal urinary tract infection. She's had the multiple blood cultures with Staphylococcus ludigenesis overtime, she does not have an indwelling port. Most recent echocardiogram does not reveal evidence of endocarditis she does have significant valvular heart disease. When she is further improved may need a JERAMY. 05/08/2019 the patient is now had several cycles of hemodialysis and has had approximately 10 L of fluid removed. She still very short of breath requiring BiPAP. The patient is now had an adequate course of therapy for her enter ococcal urinary tract infection vancomycin level is now trending toward subtherapeutic. She does not require further antibiotic therapy at this time. Of note the patient's creatinine was elevated before the first dose of vancomycin therapy. 05/09/2019 doing much better today off bipap and less SOB she's been doing well with the hemodialysis and ultrafiltration removing approximately 13 L of fluid he gained some appetite and mood and affect are somewhat improve She Has had adequate treatment of her urinary tract infection and needs no further antibiotic therapy this time. Current Visit: Yes Status: Acute Code(s): N39.0 - URINARY TRACT INFECTION, SITE NOT SPECIFIED SNOMED Code(s): 27488626
[2019-05-10] MEDS: CLOTRIMAZOLE TROCHE 10 MG TROCHE MUCOUS MEM SCH ×6 (00:07→23:58)
[2019-05-10] MEDS: ESMOLOL IN SODIUM CHLORIDE PMX 2.5 GM in SALINE 1 250ML.BAG IV SCH ×2 (00:16→04:50)
[2019-05-10] MEDS: methylPREDNISolone SOD SUCCI 40 MG/ML 1 ML VIAL IV SCH ×6 (00:16→23:59)
[2019-05-10] MEDS: FUROSEMIDE 10 MG/ML 10 ML VIAL IV SCH ×2 (00:16→09:02)
[2019-05-10] MEDS: AMIODARONE 300 MG in DEXTROSE 5% IN WATER 250 ML IV SCH ×2 (04:51)
--- NOTE | 2019-05-10 04:51 | XR ---
EXAM: XR Chest, 1 View CLINICAL HISTORY: ITS.REASON XR Reason: sob TECHNIQUE: Frontal view of the chest. COMPARISON: 05/09/2019 FINDINGS: Lungs: Diffuse interstitial and alveolar opacities are similar in appearance when compared to the previous examination. The mediastinal contours are thought to be stable in appearance with persistent peribronchial cuffing. The trachea is midline. Pleural space: The right costophrenic margin is not included on this exam. No pneumothorax. Heart: Stable cardiomegaly. Mediastinum: Unremarkable. Bones/joints: Degenerative changes of thoracic spine remain. IMPRESSION: Stable cardiomegaly with diffuse interstitial and alveolar opacities are similar in appearance when compared to the previous examination. No significant radiographic alteration suggested. Please correlate clinically.
[2019-05-10 05:34] LABS: Anisocytosis Slight; HCT 24.5 % (34.0-46.0); MCH 33.6 pg (25.0-35.0); MCHC 32.5 g/dL (31.0-37.0); MCV 103.4 fL (80.0-100.0); Macrocytosis Moderate; Mean Platelet Volume 10.3; RBC 2.37 m/uL (3.80-5.40); RDW 18.5 % (11.5-15.5)
[2019-05-10 05:35] LABS: Platelet Count 90 k/uL (150-450)
[2019-05-10 05:43] LABS: Calcium 7.5 mg/dL (8.4-10.2); Magnesium 2.5 mg/dL (1.6-2.3); Phosphorus 5.9 mg/dL (2.5-4.5); Potassium 5.2 mmol/L (3.5-5.1); Total Protein 6.2 g/dL (6.3-8.2)
[2019-05-10 06:07] LABS: Band Neutrophils % 1 %; Lymphocytes # (M) 0.16 k/uL (1.0-4.8); Neutrophils % (M) 94 %; Nucleated Red Blood Cells 4 /100 WBC (0-0); Total Cells Counted 200
[2019-05-10 06:09] LABS: Monocytes # (M) 0.39 k/uL (0-1.0); WBC 7.8 k/uL (3.8-10.6)
[2019-05-10] MEDS: PANTOPRAZOLE 40 MG TABLET PO SCH (06:12)
[2019-05-10] MEDS: SUCRALFATE 1 GM TAB PO SCH ×4 (06:12→21:17)
[2019-05-10] MEDS: INSULIN ASPART (NovoLOG) 100 UNIT/ML VIAL SQ SCH ×4 (06:57→21:22)
[2019-05-10 07:01] LABS: Glucose,Whole Blood 192 mg/dL (75-99)
[2019-05-10] MEDS: IPRATROPIUM-ALBUTEROL 3 ML NEB INHALATION SCH ×5 (07:14→20:04)
[2019-05-10] MEDS: BUDESONIDE 1 MG/2 ML NEBU INHALATION SCH ×2 (07:14→20:04)
--- NOTE | 2019-05-10 08:24 | P.PN ---
Subjective Progress Note Date: 05/10/19 Principal diagnosis: This is 64-year-old female with acute kidney injury, ATN secondary to vancomycin. Currently on dialysis. She was seen on dialysis this morning. She is awake alert oriented she is on a BiPAP. She is also on multiple medications control her heart rate because of rapid ventricular rate of atrial fibrillation. She is started on esmolol IV, Cardizem, digoxin, Amiodraone Blood pressure at times down into the 80s Urine output is minimal with a Hunter catheter She is able to eat. No fever chills nausea vomiting diarrhea abdominal pain Objective - Vital Signs Vital signs: Vital Signs Temp 97.7 F 05/10/19 04:00 Pulse 97 05/10/19 07:37 Resp 19 05/10/19 07:00 BP 101/85 05/10/19 07:00 Pulse Ox 97 05/10/19 07:00 Intake & Output 05/09/19 05/10/19 05/10/19 18:59 06:59 18:59 Intake Total 830 802.349 10 Output Total 3060 60 20 Balance -2230 742.349 -10 Weight 147.7 kg 141.2 kg Intake: IV 510 100 10 0.9 NS 70 100 10 Amiodarone 300 mg In 208 Dextrose 5% in Water 250 ml @ 0.5 MG/MIN 25 mls/hr IV .Q10H [facility] Rx#: [id number] Amiodarone 360 mg In 132 Dextrose 5% in Water 200 ml @ 1 MG/MIN 33.333 mls/ hr IV .Q6H [facility] Rx#: [id number] Cefepime 2 gm In Sodium 100 Chloride 0.9% 100 ml @ 200 mls/hr IVPB Q12H [facility] Rx#:[id number] Intake, IV Titration 702.349 Amount Amiodarone 300 mg In 250 Dextrose 5% in Water 250 ml @ 0.5 MG/MIN 25 mls/hr IV .Q10H [facility] Rx#: [id number] Esmolol in Sodium 452.349 Chloride Pmx 2.5 gm In Saline 1 250ml.bag @ 25 MCG/KG/MIN 22.155 mls/hr IV .[id number] [facility] Rx#: [id number] Oral 320 Output: Urine 60 60 20 Hemodialysis 3000 Other: Voiding Method Indwelling Catheter Indwelling Catheter # Voids 0 On examination she is awake alert oriented on BiPAP HEENT exam no JVP neck is supple no facial asymmetry Lungs are significant for diminished air entry bilaterally. No wheezing. Heart sounds are unremarkable except for atrial fibrillation Abdomen is soft obese nontender Extremity exam was trace edema. Warm to touch. Neurologically awake alert oriented - Labs CBC & Chem 7: 05/10/19 04:38 05/10/19 04:38 Labs: Abnormal Lab Results - Last 24 Hours (Table) 05/09/19 05/09/19 05/09/19 Range/Units 11:45 17:00 20:58 RBC (3.80-5.40) m/uL Hgb (11.4-16.0) gm/dL Hct (34.0-46.0) % MCV (80.0-100.0) fL RDW (11.5-15.5) % Plt Count (150-450) k/uL Lymphocytes # (Manual) (1.0-4.8) k/uL Nucleated RBCs (0-0) /100 WBC Potassium (3.5-5.1) mmol/L BUN (7-17) mg/dL Creatinine (0.52-1.04) mg/dL Glucose (74-99) mg/dL POC Glucose (mg/dL) 153 H 196 H 194 H (75-99) mg/dL Calcium (8.4-10.2) mg/dL Phosphorus (2.5-4.5) mg/dL Magnesium (1.6-2.3) mg/dL AST (14-36) U/L Total Protein (6.3-8.2) g/dL Albumin (3.5-5.0) g/dL 05/10/19 05/10/19 05/10/19 Range/Units 04:38 04:38 06:49 RBC 2.37 L (3.80-5.40) m/uL Hgb 8.0 L (11.4-16.0) gm/dL Hct 24.5 L (34.0-46.0) % MCV 103.4 H (80.0-100.0) fL RDW 18.5 H (11.5-15.5) % Plt Count 90 L (150-450) k/uL Lymphocytes # (Manual) 0.16 L (1.0-4.8) k/uL Nucleated RBCs 4 H (0-0) /100 WBC Potassium 5.2 H (3.5-5.1) mmol/L BUN 79 H (7-17) mg/dL Creatinine 4.45 H (0.52-1.04) mg/dL Glucose 173 H (74-99) mg/dL POC Glucose (mg/dL) 192 H (75-99) mg/dL Calcium 7.5 L (8.4-10.2) mg/dL Phosphorus 5.9 H (2.5-4.5) mg/dL Magnesium 2.5 H (1.6-2.3) mg/dL AST 47 H (14-36) U/L Total Protein 6.2 L (6.3-8.2) g/dL Albumin 3.0 L (3.5-5.0) g/dL Microbiology - Last 24 Hours (Table) 05/05/19 04:39 Blood Culture - Preliminary Blood No Growth after 120 hours 05/05/19 04:12 Blood Culture - Preliminary Blood No Growth after 120 hours 05/03/19 23:18 Blood Culture - Final Blood No Growth after 144 hours Assessment and Plan Assessment: Impression 1. Acute kidney injury, vancomycin associated toxicity. Hemodialysis dependent. Patient's currently on dialysis and has been on daily dialysis. She is able to tolerated ultrafiltration of about 3 L or 3-1/2 hours. No urine output to minimal few cc only in spite of being on Lasix. She has a Hunter catheter in the right groin 2. Congestive heart failure or ARDS seen on chest x-ray. Slight improvement 3. On BiPAP 4. Staph bacteremia repeat negative cultures 5. Atrial fibrillation with multiple medications to control. 6. Enterococcus faecalis urinary tract infection 7. Anemia with hemoglobin 8, has been stable. 8. Mild hyperkalemia potassium is 5.2 9. Mild acidosis bicarb is 22. Recommendation 1. Continue daily dialysis because of the possible pulmonary edema. 2. Will maintain 3 L ultrafiltration goal 3. Discontinue the Hunter catheter. 4. Daily bladder scans and straight cath for urine greater than 200 mL 5. Will watch the potassium as well as the bicarb
[2019-05-10] MEDS: SODIUM BICARBONATE TAB 650 MG TAB PO SCH ×2 (09:13→21:17)
[2019-05-10] MEDS: APIXABAN 5 MG TAB PO SCH ×2 (09:13→21:21)
[2019-05-10] MEDS: DILTIAZEM CD 180 MG CAP.ER.24H PO SCH (09:14)
[2019-05-10] MEDS: ASPIRIN 81 MG PO SCH (09:14)
[2019-05-10] MEDS: ALPRAZolam 0.25 MG TAB PO PRN (09:14)
[2019-05-10] MEDS: GABAPENTIN 300 MG CAP PO SCH (09:14)
[2019-05-10] MEDS: FLUTICASONE 50MCG/SPRAY NASAL 16GM EA NOSTRIL SCH (09:14)
[2019-05-10] MEDS: DILTIAZEM 125 MG in SODIUM CHLORIDE 0.9% 100 ML IV SCH (11:30)
[2019-05-10 12:05] LABS: Glucose,Whole Blood 169 mg/dL (75-99)
[2019-05-10] MEDS: METOPROLOL SUCCINATE (ER) 50 MG TAB.ER.24H PO SCH (12:09)
--- NOTE | 2019-05-10 12:22 | P.PN ---
Subjective Progress Note Date: 05/10/19 Principal diagnosis: Acute sepsis, acute urinary tract infection, gram-positive bacteremia, acute renal failure I was asked to evaluate this patient for a right upper lobe pneumonia. The patient was also be more short of breath yesterday and his chest x-ray was ordered and showed a questionable infiltrate in the right upper lobe and pneumonia was suspected. Note that the patient is morbidly obese with a BMI 59.8. The patient also has history of metastatic breast cancer for which she has undergone radiation therapy to her cervical spine that was complicated by radiation-induced esophagitis and difficulties in swallowing. She has been on systemic treatment with a combination of Ibrance and Fosladex. The patient presented to the hospital because of pancytopenia and infection and this do not to be a UTI with Enterococcus faecalis and blood culture was positive with Staphylococcus Lugdunenisis , which is a coagulase-negative staph and the patient was covered with vancomycin per IDs recommendations. Time of my evaluation, the patient was afebrile. Pulse ox is 96% on room air. No significant tachycardia. No chest pain. No pleurisy. No hemoptysis. She has some chronic swelling in lower extremities bilaterally. Moist recent white count is at 1.9. Platelet count is at 75. The patient also had developed an acute kidney injury. As the patient had a normal kidney function on 04/16/2019. Creatinine is up to 4.8 and this is probably related to an ATN induced by sepsis and further complicated by possible vancomycin-induced toxicity as the patient's serum vancomycin level was quite elevated with a vancomycin level of 37.8 from May 022018 is down trending. No evidence of any hydronephrosis on the renal ultrasound. Patient was reevaluated today on 05/05/2019, patient remains in the intensive care unit, quite short of breath, intermittent episodes of cough and hemoptysis. No fever, worsening chest x-ray with bilateral interstitial edema or infiltrates, poor urine output, hence the patient was switched from IV Lasix to Lasix drip at 10 mg per hour. Worsening renal functioning and acute kidney injury, patient may require hemodialysis. Being followed by nephrology. WBC count today is 3.1 hemoglobin is 7.8 electrolytes are normal however her bicarb is low at 19 BUN is up to 63 creatinine is up to 5.25. Her creatinine on admission 5 days ago was 2.69. Presently on cefepime, off vancomycin. Cultures so far have shown Enterococcus faecalis in the urine, and Staphylococcus lugdunenesis in the blood. Those are being addressed by Dr. Zimmerman on the case, patient is requiring 5 L nasal cannula, her O2 saturation is marginal, however intermittently has been on BiPAP. And that seems to be helping much better. Chest x-ray is worrisome, hence I recommended patient be placed on Lasix drip at 10 mg per hour. And discontinued Lasix at 60 mg IV push every 6 hours. Patient was reevaluated today on 05/06/2019, patient remains in the intensive care unit, almost BiPAP dependent. Remains on Lasix drip at 10 mg per hour, and urine output seems to be in the range of 30-50 mL per hour. Chest x-ray continues to show interstitial infiltrates/edema bilaterally. Renal functioning is a bit worse, creatinine is up to 5.62. Baseline creatinine on admission was 2.69. Patient remains on 50% BiPAP, and she desaturates significantly off BiPAP. Continues to have cough and wheezing. And significantly abnormal chest x-ray. Her daughter is at bedside today, and updated on her condition and patient may end up eventually requiring intubation and mechanical ventilation, but at this point we will try to manage with BiPAP and with bronchodilators, steroids, antibiotics, and diuretics. All her cultures were reviewed again, patient is being followed by Dr. Zimmerman. WBC count today is 4.3 hemoglobin is 7.7 and electrolytes are normal BUN is 77 creatinine is 5.62. Patient was reevaluated today on 05/07/2019, patient remains in the ICU, remains on BiPAP, received hemodialysis and ultrafiltration yesterday, and 3 L of fluids were removed. After the hemodialysis, her urine output was 0, hence her Lasix infusion was discontinued. Clinically the patient felt better, breathing a bit easier, chest x-ray is basically about the same continues to show interstitial infiltrates/edema. Not much improvement noted on the chest x-ray, but clinically the patient is feeling better. WBC count today is 4.7 hemoglobin is 8.1, electrodes are normal BUN is 73 creatinine is 5.14. Reevaluated today on 05/08/2019, patient underwent dialysis yesterday and dialysis ongoing today. Patient remains on BiPAP, she is basically BiPAP dependent on IPAP of 14 EPAP of 6 and 50% FiO2. O2 saturation remains in the mid 90s, however the patient desaturates significantly with any time off BiPAP.chest x-ray is somewhat improved, improved interstitial patchy airspace disease bilaterally. But not back to normal. On physical exam , I noted less wheezing, and less rhonchi noted.CBC showed WBC of 6.6 hemoglobin is 8.4 lites are normal BUN is 63 creatinine 4.50.repeat blood cultures in the last few days have been negative/over the last 72 hours. Reevaluated today on 05/09/2019, patient has been on daily dialysis for the last 3 days. Feels better, less cough and less wheezing less shortness of breath. However remains BiPAP dependent. Chest x-ray showed some improvement, but continues to have significant interstitial infiltrates bilaterally. No wheezing and shortness of breath didn't improve and again some improvement noted on the chest x-ray. Patient is again in atrial fibrillation with RVR, and she is still on amiodarone drip as per cardiology, she was also given digoxin earlier today. Maintaining adequate blood pressure in spite of A. fib/RVR. Hemoglobin today is 8.3, WBC count is normal electrodes are normal BUN is 76 creatinine 4.54. Remains on 50% BiPAP with IPAP of 14 and EPAP of 6. Reevaluated today on 05/10/2019, patient remains in the ICU, remains in A. fib with RVR, this is being addressed by cardiology, patient remains on amiodarone drip and is small drip, and she doesn't seem to be improving much with her A. fib/RVR. Continues to have daily dialysis, remains on BiPAP however I was able to cut down her FiO2 to 50% and may be cut down further later today. Chest x- ray is showing improved aeration and improvement in her interstitial edema bilaterally. But again it is not completely resolved. Labs were all reviewed electrolytes are within normal range BUN is 79 creatinine 4.45. WBC count is 7.8 hemoglobin is 8. Patient is not requiring any pressors, her blood pressure is borderline, in spite of A. fib/RVR. Clinically the patient feels about the same. Still BiPAP dependent. Objective - Vital Signs Vital signs: Vital Signs Temp 97.6 F 05/10/19 12:08 Pulse 125 H 05/10/19 12:08 Resp 25 H 05/10/19 12:08 BP 99/77 05/10/19 12:08 Pulse Ox 97 05/10/19 10:00 Intake & Output 05/09/19 05/10/19 05/10/19 18:59 06:59 18:59 Intake Total 830 802.349 110 Output Total 3060 60 3020 Balance -2230 742.349 -2910 Weight 147.7 kg 141.2 kg Intake: IV 510 100 10 0.9 NS 70 100 10 Amiodarone 300 mg In 208 Dextrose 5% in Water 250 ml @ 0.5 MG/MIN 25 mls/hr IV .Q10H [facility] Rx#: [id number] Amiodarone 360 mg In 132 Dextrose 5% in Water 200 ml @ 1 MG/MIN 33.333 mls/ hr IV .Q6H [facility] Rx#: [id number] Cefepime 2 gm In Sodium 100 Chloride 0.9% 100 ml @ 200 mls/hr IVPB Q12H [facility] Rx#:[id number] Intake, IV Titration 702.349 Amount Amiodarone 300 mg In 250 Dextrose 5% in Water 250 ml @ 0.5 MG/MIN 25 mls/hr IV .Q10H [facility] Rx#: [id number] Esmolol in Sodium 452.349 Chloride Pmx 2.5 gm In Saline 1 250ml.bag @ 25 MCG/KG/MIN 22.155 mls/hr IV .[id number] [facility] Rx#: [id number] Oral 320 100 Output: Urine 60 60 20 Hemodialysis 3000 3000 Other: Voiding Method Indwelling Catheter Indwelling Catheter # Voids 0 - Exam Physical Exam: obese 63-year-old female, remains on BiPAP HEENT: Neck supple, no neck masses, no JVD. No adenopathy. HEENT:[Neck is supple.] [No neck masses.] [No thyromegaly.] [No JVD.] Chest: [Symmetrical chest expansion, minimal crackles at the bases. No chest wall tenderness. Cardiac Exam: [Normal S1 and S2, no S3 gallop, no murmur.] Abdomen: [Obese, Soft, nontender, no megaly, no rebound, no guarding, normal bowel sounds.] Extremities: [No clubbing, 1+ bipedal edema, no cyanosis.] Good pulses bilaterally. Neurological Exam: Alert and oriented 3. [No focal neurologic deficit.] Lymphatics: No lymphadenopathy. Psychiatric: Normal mood affect and normal mental status examination. Skin: No rashes. - Labs CBC & Chem 7: 05/10/19 04:38 05/10/19 04:38 Labs: Abnormal Lab Results - Last 24 Hours (Table) 05/09/19 05/09/19 05/10/19 Range/Units 17:00 20:58 04:38 RBC 2.37 L (3.80-5.40) m/uL Hgb 8.0 L (11.4-16.0) gm/dL Hct 24.5 L (34.0-46.0) % MCV 103.4 H (80.0-100.0) fL RDW 18.5 H (11.5-15.5) % Plt Count 90 L (150-450) k/uL Lymphocytes # (Manual) 0.16 L (1.0-4.8) k/uL Nucleated RBCs 4 H (0-0) /100 WBC Potassium (3.5-5.1) mmol/L BUN (7-17) mg/dL Creatinine (0.52-1.04) mg/dL Glucose (74-99) mg/dL POC Glucose (mg/dL) 196 H 194 H (75-99) mg/dL Calcium (8.4-10.2) mg/dL Phosphorus (2.5-4.5) mg/dL Magnesium (1.6-2.3) mg/dL AST (14-36) U/L Total Protein (6.3-8.2) g/dL Albumin (3.5-5.0) g/dL 05/10/19 05/10/19 05/10/19 Range/Units 04:38 06:49 11:54 RBC (3.80-5.40) m/uL Hgb (11.4-16.0) gm/dL Hct (34.0-46.0) % MCV (80.0-100.0) fL RDW (11.5-15.5) % Plt Count (150-450) k/uL Lymphocytes # (Manual) (1.0-4.8) k/uL Nucleated RBCs (0-0) /100 WBC Potassium 5.2 H (3.5-5.1) mmol/L BUN 79 H (7-17) mg/dL Creatinine 4.45 H (0.52-1.04) mg/dL Glucose 173 H (74-99) mg/dL POC Glucose (mg/dL) 192 H 169 H (75-99) mg/dL Calcium 7.5 L (8.4-10.2) mg/dL Phosphorus 5.9 H (2.5-4.5) mg/dL Magnesium 2.5 H (1.6-2.3) mg/dL AST 47 H (14-36) U/L Total Protein 6.2 L (6.3-8.2) g/dL Albumin 3.0 L (3.5-5.0) g/dL Microbiology - Last 24 Hours (Table) 05/05/19 04:39 Blood Culture - Preliminary Blood No Growth after 120 hours 05/05/19 04:12 Blood Culture - Preliminary Blood No Growth after 120 hours 05/03/19 23:18 Blood Culture - Final Blood No Growth after 144 hours Assessment and Plan Assessment: Impression: 1 shortness of breath with acute hypoxic respiratory failure secondary to sepsis, urinary tract infection, anemia, and suspect pulmonary edema which is possibly cardiogenic or noncardiogenic in nature. at this point I believe that the combination of both. She does have elevated BNP level, echocardiogram showed mildly impaired ejection fraction 45%, severe aortic stenosis is also noted on the echocardiogram. Peak gradient across the aortic valve is 76 with a mean of 43.8 . Patient seems to be responding well to hemodialysis and ultrafiltration. Hence we'll continue dialysis. 2 acute kidney injury secondary to ATN, possible vancomycin nephrotoxicity. 3 gram-positive bacteremia , blood cultures have been negative over the last 72 hours.Remains on antibiotics as per infectious disease on the case. 4 Enterococcus faecalis urinary tract infection, being addressed by infectious disease. 5 metastatic breast cancer patient has been on chemotherapy until recently. The possibility of lymphangitic carcinomatosis from breast cancer metastatic to the lungs is not entirely ruled out, however the patient is not a good candidate for bronchoscopy and biopsy at this point. 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 8 chemotherapy induced pancytopenia 9 metabolic acidosis secondary to sepsis and acute kidney injury. 10 atrial fibrillation with RVR, not controlled in spite of amiodarone and esmolol drip. Recommendation: Continue present supportive care measures including BiPAP, titrate FiO2 accordingly. hemodialysis/ultrafiltration, diuretics, antibiotics, steroids, bronchodilators, GI and DVT prophylaxis, nutritional support, continue amiodarone, esmolol per cardiology for A. fib/RVR prognosis remains extremely poor and guarded. We'll continue to follow. Again prognosis remains extremely poor and guarded. Patient may eventually require intubation and mechanical ventilation, and this was discussed with the patient fully almost on a daily basis. o Time with Patient: Less than 30
[2019-05-10] MEDS: CEFEPIME 1 GM in SODIUM CHLORIDE 0.9% 50 ML IVPB SCH (12:31)
[2019-05-10 17:14] LABS: Glucose,Whole Blood 153 mg/dL (75-99)
[2019-05-10] MEDS: METOPROLOL TARTRATE 5 MG/5 ML VIAL IVP PRN (17:20)
--- NOTE | 2019-05-10 17:22 | PN ---
PROGRESS NOTE DATE OF SERVICE: This 64-year-old woman with a past medical history of multiple medical problems was admitted with right pneumonia, shortness of breath. The patient had features of renal failure, new onset acute tubular necrosis. Patient being dialyzed at this time. The patient has also had significant shortness of breath. The patient also had cardiac arrhythmia. Multiple medications have been tried at this time. Patient currently on Cardizem drip. Still heart rate is around between around 150. Multiple consultants are following the patient closely. Chest x-ray showed some minimal worsening, which was reviewed personally by me. Otherwise, the possibility of lymphangitic carcinomatosis and CA of the breast was also considered. The patient also had Mary albicans in the sputum and urine culture showed Enterococcus faecalis and blood culture showed Staph lugdunensis. PAST MEDICAL HISTORY: Reviewed. REVIEW OF SYSTEMS: Cardiovascular: No angina or palpitations. Respirations: As mentioned earlier. GI: As mentioned earlier. : No dysuria. CENTRAL NERVOUS SYSTEM: No numbness or weakness. CURRENT MEDICATIONS: Reviewed and include: 1. Haiku 5 mg p.r.n. 2. DuoNeb q.i.d. and p.r.n. 3. Xanax 0.25. 4. Cordarone 400 mg p.o. b.i.d. 5. Eliquis 5 mg p.o. b.i.d. 6. Aspirin 160 mg. 7. Lipitor 40 mg q.h.s. 8. Pulmicort 1 mg b.i.d. 9. Mycelex. 10.Cardizem drip. 11.Flonase. 12.Neurontin. 13.NovoLog. 14.Solu-Medrol 40 IV q.8h. 15.Protonix. 16.Singulair. 17.Narcan. 18.Protonix. 19.Silvadene. 20.Carafate. PHYSICAL EXAM: Patient is alert, oriented x3. The pulse is 146 and irregular. Blood pressure 120/85, respiration 21, temperature 97.2, pulse ox 92 percent on BiPAP. HEENT: Conjunctivae normal. Oral mucosa moist. NECK is no jugular venous distention. No carotid bruit. No lymph node enlargement. CARDIOVASCULAR SYSTEMS: S1, S2 muffled. Tachycardiac. RESPIRATION: Breath sounds diminished in the bases. Breathing efforts are markedly increased. Patient is on BiPAP. Bilateral scattered rhonchi and crackles. Expiratory wheezing also present. ABDOMEN: Soft, nontender. LEGS: No edema. No swelling. NERVOUS SYSTEM: No focal deficits. LABS: WBC 7.8, hemoglobin 8. Sodium 140, potassium 5.2. Creatinine is 4.45, magnesium is 2.5. Accu-Cheks are noted. Other labs are noted. ASSESSMENT: 1. Acute right lower lobe pneumonia with possible neutropenic sepsis, present on admission. 2. Acute renal failure with acute tubular necrosis, multifactorial with prerenal factors, worsening. Started on new onset hemodialysis. 3. Fluid overload, congestive heart failure, acute exacerbation; acute on chronic systolic dysfunction, ejection fraction 40-50 percent. 4. Severe aortic stenosis, moderate to severe aortic regurgitation and mild to moderate tricuspid regurgitation. 5. Possibly ARDS, possible lymphangitis, carcinomatosis from the breast cancer. 6. Atrial fibrillation with fast ventricular rate. 7. Acute hypoxic respiratory failure on BiPAP. 8. Enterococcus faecalis, vancomycin sensitive from the urine culture. 9. Mary albicans in the sputum. 10.Pancytopenia secondary to chemotherapy. 11.Carcinoma of breast 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. 12.Hyponatremia. 13.Increased AST. 14.Obesity with body mass index 63.9. 15.Hypertension. 16.History of left-sided cerebrovascular accident. 17.History of breast surgery. 18.Remote history of nicotine dependence. RECOMMENDATIONS AND DISCUSSION: Recommend to continue current medications, continue with monitoring, symptomatic treatment. Otherwise, at this time, I recommend continue the antibiotics. Follow the cultures. Continue with BiPAP. Hemodialysis being done almost on a daily basis to be continued. Guarded prognosis because of multiple complex medical issues. Further recommendations to follow. MMODL / IJN: [id number] /
--- NOTE | 2019-05-10 18:16 | PN ---
PROGRESS NOTE This is a 64-year-old lady admitted to hospital with sepsis, renal failure, and she is in atrial fibrillation with poorly controlled ventricular rate. The patient was on amiodarone drip. Also, received a dose of digoxin and was started on esmolol drip. She remains in atrial fibrillation with poorly controlled ventricular rate. Esmolol drip is really not doing anything to her heart rate. I am going to stop the esmolol, start her back on the Cardizem drip and start her on a beta linda and adjust medications as needed. She has also been started back on her Eliquis. On exam, heart rate is 125 beats per minute, irregular. Blood pressure is 100/77, respiratory rate is 18. Chest exam reveals good air entry without any crackles or rhonchi. Heart exam reveals first and second heart sounds, irregular rhythm. Exam of extremities reveals mild edema. LAB: Show a hemoglobin of 8, platelet count is 90. BUN is 79, creatinine is 4.4. ASSESSMENT: Persistent atrial fibrillation with poorly controlled ventricular rate. PLAN: I am going to switch the amiodarone to p.o., start her on Toprol-XL, start her on Cardizem drip and stop the IV esmolol. MMODL / IJN: [id number] /
[2019-05-10] MEDS ORDERED: DEXTROSE 5% IN WATER 100 ML with AMIODARONE 150 MG IV ONE (19:30)
[2019-05-10] MEDS ORDERED: AMIODARONE 360 MG in DEXTROSE 5% IN WATER 200 ML IV ONE ×2 (19:40)
[2019-05-10 20:48] LABS: Glucose,Whole Blood 163 mg/dL (75-99)
[2019-05-10] MEDS ORDERED: AMIODARONE 200 MG TAB PO SCH (21:00)
[2019-05-10] MEDS: SENNOSIDES-DOCUSATE SODIUM 1 EACH TAB PO SCH (21:16)
[2019-05-10] MEDS: MONTELUKAST 10 MG TAB PO SCH (21:16)
[2019-05-10] MEDS: ATORVASTATIN 40 MG TAB PO SCH (21:21)
[2019-05-10 22:45] LABS: Iron Saturation 90.11 (12.00-45.00)
[2019-05-11] MEDS: AMIODARONE 300 MG in DEXTROSE 5% IN WATER 250 ML IV SCH ×6 (01:25→21:08)
[2019-05-11] MEDS: DILTIAZEM 125 MG in SODIUM CHLORIDE 0.9% 100 ML IV SCH ×3 (01:29→21:08)
[2019-05-11 05:47] LABS: Anisocytosis Slight; HGB 7.6 gm/dL (11.4-16.0); Hypochromasia Slight; MCH 34.7 pg (25.0-35.0); MCHC 33.1 g/dL (31.0-37.0); MCV 104.8 fL (80.0-100.0); Macrocytosis Moderate; Mean Platelet Volume 10.8; RDW 19.5 % (11.5-15.5)
[2019-05-11 05:55] LABS: Platelet Count 80 k/uL (150-450)
[2019-05-11] MEDS: SUCRALFATE 1 GM TAB PO SCH ×4 (05:57→20:13)
[2019-05-11] MEDS: CLOTRIMAZOLE TROCHE 10 MG TROCHE MUCOUS MEM SCH ×4 (05:57→20:12)
[2019-05-11] MEDS: PANTOPRAZOLE 40 MG TABLET PO SCH (05:57)
[2019-05-11 06:03] LABS: Calcium 7.6 mg/dL (8.4-10.2); Magnesium 2.6 mg/dL (1.6-2.3); Phosphorus 7.4 mg/dL (2.5-4.5); Potassium 5.3 mmol/L (3.5-5.1)
[2019-05-11 06:18] LABS: Lymphocytes # (M) 0.14 k/uL (1.0-4.8); Monocytes # (M) 0.07 k/uL (0-1.0); Neutrophils % (M) 97 %; Nucleated Red Blood Cells 6 /100 WBC (0-0); Total Cells Counted 100; WBC 7.1 k/uL (3.8-10.6)
[2019-05-11 06:19] LABS: Polychromasia Present
--- NOTE | 2019-05-11 06:56 | XR ---
EXAMINATION TYPE: XR chest 1V portable DATE OF EXAM: 05/11/2019 HISTORY: sob. REFERENCE: Previous study dated 05/10/2019. FINDINGS: The heart is enlarged. There is vascular congestion and pulmonary edema. I cannot exclude s mall effusions. IMPRESSION: FINDINGS COMPATIBLE WITH WORSENING HEART FAILURE.
[2019-05-11] MEDS: INSULIN ASPART (NovoLOG) 100 UNIT/ML VIAL SQ SCH ×4 (07:13→21:08)
[2019-05-11] MEDS: methylPREDNISolone SOD SUCCI 40 MG/ML 1 ML VIAL IV SCH ×3 (07:13→17:10)
[2019-05-11 07:21] LABS: Glucose,Whole Blood 158 mg/dL (75-99)
[2019-05-11] MEDS: IPRATROPIUM-ALBUTEROL 3 ML NEB INHALATION SCH ×4 (07:36→19:11)
[2019-05-11] MEDS: BUDESONIDE 1 MG/2 ML NEBU INHALATION SCH ×2 (07:36→19:11)
[2019-05-11] MEDS: ALPRAZolam 0.25 MG TAB PO PRN (08:26)
--- NOTE | 2019-05-11 09:33 | P.PN ---
Subjective Progress Note Date: 05/11/19 Principal diagnosis: This is 64-year-old female with acute kidney injury, ATN secondary to vancomycin. Currently on dialysis. She was seen on dialysis this morning. She is awake alert oriented she is on a BiPAP. She is now on dialysis #6 on a daily basis. Her chest x-ray has improved. She remains on BiPAP and desaturates immediately upon removal. She is very anxious and is getting very thick Neck. She is also on multiple medications control her heart rate because of rapid ventricular rate of atrial fibrillation. She is started on esmolol IV, Cardizem, digoxin, Amiodraone. This morning she is in normal sinus rhythm Blood pressure and vital signs are stable currently Urine output is minimal with a Hunter catheter She is able to eat. No fever chills nausea vomiting diarrhea abdominal pain Objective - Vital Signs Vital signs: Vital Signs Temp 97.3 F L 05/11/19 08:00 Pulse 58 L 05/11/19 08:00 Resp 17 05/11/19 08:00 BP 132/61 05/11/19 08:00 Pulse Ox 96 05/11/19 08:00 Intake & Output 05/10/19 05/11/19 05/11/19 18:59 06:59 18:59 Intake Total 265.0 100 110.5 Output Total 3030 45 30 Balance -2765.0 55 80.5 Weight 144.4 kg Intake: IV 40 100 20 0.9 NS 40 100 20 Intake, IV Titration 125.0 90.5 Amount Diltiazem 125 mg In 125.0 90.5 Sodium Chloride 0.9% 100 ml @ Per Protocol IV .Q0M [facility] Rx#:[id number] Oral 100 Output: Urine 30 45 30 Hemodialysis 3000 Other: Voiding Method Indwelling Catheter Indwelling Catheter On exam concurrently she is on dialysis blood pressures in the 120s. She is on BiPAP. She seems very anxious. HEENT exam no JVP neck is supple no facial asymmetry Lungs are clear to auscultation fair air entry bilaterally Heart sounds are unremarkable with normal sinus rhythm Abdomen is soft protuberant nontender nondistended Extremity exam reveals minimal edema Neurologically awake alert oriented but very anxious. - Labs CBC & Chem 7: 05/11/19 04:56 05/11/19 04:56 Labs: Abnormal Lab Results - Last 24 Hours (Table) 05/10/19 05/10/19 05/10/19 Range/Units 04:38 11:54 17:02 RBC (3.80-5.40) m/uL Hgb (11.4-16.0) gm/dL Hct (34.0-46.0) % MCV (80.0-100.0) fL RDW (11.5-15.5) % Plt Count (150-450) k/uL Lymphocytes # (Manual) (1.0-4.8) k/uL Nucleated RBCs (0-0) /100 WBC Potassium (3.5-5.1) mmol/L Carbon Dioxide (22-30) mmol/L BUN (7-17) mg/dL Creatinine (0.52-1.04) mg/dL Glucose (74-99) mg/dL POC Glucose (mg/dL) 169 H 153 H (75-99) mg/dL Calcium (8.4-10.2) mg/dL Phosphorus (2.5-4.5) mg/dL Magnesium (1.6-2.3) mg/dL Iron 246 H (50-170) ug/dL Iron Saturation 90.11 H (12.00-45.00) 05/10/19 05/11/19 05/11/19 Range/Units 20:37 04:56 04:56 RBC 2.20 L (3.80-5.40) m/uL Hgb 7.6 L (11.4-16.0) gm/dL Hct 23.0 L (34.0-46.0) % MCV 104.8 H (80.0-100.0) fL RDW 19.5 H (11.5-15.5) % Plt Count 80 L (150-450) k/uL Lymphocytes # (Manual) 0.14 L (1.0-4.8) k/uL Nucleated RBCs 6 H (0-0) /100 WBC Potassium 5.3 H (3.5-5.1) mmol/L Carbon Dioxide 21 L (22-30) mmol/L BUN 84 H (7-17) mg/dL Creatinine 4.13 H (0.52-1.04) mg/dL Glucose 162 H (74-99) mg/dL POC Glucose (mg/dL) 163 H (75-99) mg/dL Calcium 7.6 L (8.4-10.2) mg/dL Phosphorus 7.4 H (2.5-4.5) mg/dL Magnesium 2.6 H (1.6-2.3) mg/dL Iron (50-170) ug/dL Iron Saturation (12.00-45.00) 05/11/19 Range/Units 07:09 RBC (3.80-5.40) m/uL Hgb (11.4-16.0) gm/dL Hct (34.0-46.0) % MCV (80.0-100.0) fL RDW (11.5-15.5) % Plt Count (150-450) k/uL Lymphocytes # (Manual) (1.0-4.8) k/uL Nucleated RBCs (0-0) /100 WBC Potassium (3.5-5.1) mmol/L Carbon Dioxide (22-30) mmol/L BUN (7-17) mg/dL Creatinine (0.52-1.04) mg/dL Glucose (74-99) mg/dL POC Glucose (mg/dL) 158 H (75-99) mg/dL Calcium (8.4-10.2) mg/dL Phosphorus (2.5-4.5) mg/dL Magnesium (1.6-2.3) mg/dL Iron (50-170) ug/dL Iron Saturation (12.00-45.00) Microbiology - Last 24 Hours (Table) 05/05/19 04:39 Blood Culture - Final Blood No Growth after 144 hours 05/05/19 04:12 Blood Culture - Final Blood No Growth after 144 hours Assessment and Plan Assessment: Impression 1. Acute kidney injury, vancomycin associated toxicity. Hemodialysis dependent. Patient's currently on dialysis and has been on daily dialysis. Today's her dialysis #6. She is tolerated 3 L of fluid ultrafiltration. . No urine output to minimal few cc only in spite of being on Lasix. She has a Brian catheter in the right groin. 2. Congestive heart failure or ARDS seen on chest x-ray. Slight improvement 3. On BiPAP 4. Staph bacteremia repeat negative cultures 5. Atrial fibrillation with multiple medications to control. 6. Enterococcus faecalis urinary tract infection 7. Anemia with hemoglobin 8 > 7.6, has been slowly going down from 8.4 . 8. Mild hyperkalemia potassium is 5.3 9. Mild acidosis bicarb is 21. Recommendation 1. Continue daily dialysis because of pulmonary edema. 2. Will maintain 3 L ultrafiltration goal. Will dialyze her again tomorrow day #7 3. Discontinue the Hunter catheter. 4. Daily bladder scans and straight cath for urine greater than 200 mL 5. Will watch the potassium as well as the bicarb, and the hemoglobin
[2019-05-11 10:10] LABS: ABG Base Excess -0.2 mmol/L; ABG HCO3 23 mmol/L (21-25); ABG Oxygen Saturation 96.7 % (94-97); ABG PCO2 30 mmHg (35-45); ABG PO2 82 mmHg (83-108); ABG TCO2 24 mmol/L (19-24); Allen Test Performed? Yes
--- NOTE | 2019-05-11 10:40 | P.PN ---
Subjective Progress Note Date: 05/11/19 Principal diagnosis: Acute sepsis, acute urinary tract infection, gram-positive bacteremia, acute renal failure I was asked to evaluate this patient for a right upper lobe pneumonia. The patient was also be more short of breath yesterday and his chest x-ray was ordered and showed a questionable infiltrate in the right upper lobe and pneumonia was suspected. Note that the patient is morbidly obese with a BMI 59.8. The patient also has history of metastatic breast cancer for which she has undergone radiation therapy to her cervical spine that was complicated by radiation-induced esophagitis and difficulties in swallowing. She has been on systemic treatment with a combination of Ibrance and Fosladex. The patient presented to the hospital because of pancytopenia and infection and this do not to be a UTI with Enterococcus faecalis and blood culture was positive with Staphylococcus Lugdunenisis , which is a coagulase-negative staph and the patient was covered with vancomycin per IDs recommendations. Time of my evaluation, the patient was afebrile. Pulse ox is 96% on room air. No significant tachycardia. No chest pain. No pleurisy. No hemoptysis. She has some chronic swelling in lower extremities bilaterally. Moist recent white count is at 1.9. Platelet count is at 75. The patient also had developed an acute kidney injury. As the patient had a normal kidney function on 04/16/2019. Creatinine is up to 4.8 and this is probably related to an ATN induced by sepsis and further complicated by possible vancomycin-induced toxicity as the patient's serum vancomycin level was quite elevated with a vancomycin level of 37.8 from May 022018 is down trending. No evidence of any hydronephrosis on the renal ultrasound. Patient was reevaluated today on 05/05/2019, patient remains in the intensive care unit, quite short of breath, intermittent episodes of cough and hemoptysis. No fever, worsening chest x-ray with bilateral interstitial edema or infiltrates, poor urine output, hence the patient was switched from IV Lasix to Lasix drip at 10 mg per hour. Worsening renal functioning and acute kidney injury, patient may require hemodialysis. Being followed by nephrology. WBC count today is 3.1 hemoglobin is 7.8 electrolytes are normal however her bicarb is low at 19 BUN is up to 63 creatinine is up to 5.25. Her creatinine on admission 5 days ago was 2.69. Presently on cefepime, off vancomycin. Cultures so far have shown Enterococcus faecalis in the urine, and Staphylococcus lugdunenesis in the blood. Those are being addressed by Dr. Zimmerman on the case, patient is requiring 5 L nasal cannula, her O2 saturation is marginal, however intermittently has been on BiPAP. And that seems to be helping much better. Chest x-ray is worrisome, hence I recommended patient be placed on Lasix drip at 10 mg per hour. And discontinued Lasix at 60 mg IV push every 6 hours. Patient was reevaluated today on 05/06/2019, patient remains in the intensive care unit, almost BiPAP dependent. Remains on Lasix drip at 10 mg per hour, and urine output seems to be in the range of 30-50 mL per hour. Chest x-ray continues to show interstitial infiltrates/edema bilaterally. Renal functioning is a bit worse, creatinine is up to 5.62. Baseline creatinine on admission was 2.69. Patient remains on 50% BiPAP, and she desaturates significantly off BiPAP. Continues to have cough and wheezing. And significantly abnormal chest x-ray. Her daughter is at bedside today, and updated on her condition and patient may end up eventually requiring intubation and mechanical ventilation, but at this point we will try to manage with BiPAP and with bronchodilators, steroids, antibiotics, and diuretics. All her cultures were reviewed again, patient is being followed by Dr. Zimmerman. WBC count today is 4.3 hemoglobin is 7.7 and electrolytes are normal BUN is 77 creatinine is 5.62. Patient was reevaluated today on 05/07/2019, patient remains in the ICU, remains on BiPAP, received hemodialysis and ultrafiltration yesterday, and 3 L of fluids were removed. After the hemodialysis, her urine output was 0, hence her Lasix infusion was discontinued. Clinically the patient felt better, breathing a bit easier, chest x-ray is basically about the same continues to show interstitial infiltrates/edema. Not much improvement noted on the chest x-ray, but clinically the patient is feeling better. WBC count today is 4.7 hemoglobin is 8.1, electrodes are normal BUN is 73 creatinine is 5.14. Reevaluated today on 05/08/2019, patient underwent dialysis yesterday and dialysis ongoing today. Patient remains on BiPAP, she is basically BiPAP dependent on IPAP of 14 EPAP of 6 and 50% FiO2. O2 saturation remains in the mid 90s, however the patient desaturates significantly with any time off BiPAP.chest x-ray is somewhat improved, improved interstitial patchy airspace disease bilaterally. But not back to normal. On physical exam , I noted less wheezing, and less rhonchi noted.CBC showed WBC of 6.6 hemoglobin is 8.4 lites are normal BUN is 63 creatinine 4.50.repeat blood cultures in the last few days have been negative/over the last 72 hours. Reevaluated today on 05/09/2019, patient has been on daily dialysis for the last 3 days. Feels better, less cough and less wheezing less shortness of breath. However remains BiPAP dependent. Chest x-ray showed some improvement, but continues to have significant interstitial infiltrates bilaterally. No wheezing and shortness of breath didn't improve and again some improvement noted on the chest x-ray. Patient is again in atrial fibrillation with RVR, and she is still on amiodarone drip as per cardiology, she was also given digoxin earlier today. Maintaining adequate blood pressure in spite of A. fib/RVR. Hemoglobin today is 8.3, WBC count is normal electrodes are normal BUN is 76 creatinine 4.54. Remains on 50% BiPAP with IPAP of 14 and EPAP of 6. Reevaluated today on 05/10/2019, patient remains in the ICU, remains in A. fib with RVR, this is being addressed by cardiology, patient remains on amiodarone drip and esmolol drip, and she doesn't seem to be improving much with her A. fib/RVR. Continues to have daily dialysis, remains on BiPAP however I was able to cut down her FiO2 to 50% and may be cut down further later today. Chest x- ray is showing improved aeration and improvement in her interstitial edema bilaterally. But again it is not completely resolved. Labs were all reviewed electrolytes are within normal range BUN is 79 creatinine 4.45. WBC count is 7.8 hemoglobin is 8. Patient is not requiring any pressors, her blood pressure is borderline, in spite of A. fib/RVR. Clinically the patient feels about the same. Still BiPAP dependent. Reevaluated today on 05/11/2019, patient remains in the ICU, on BiPAP, FiO2 is 50%, IPAP of 14, EPAP of 6. ABG this morning showed a pO2 of 82 pCO2 of 30 pH of 7.50. Patient remains in atrial fibrillation, however her rate seems to be better controlled today, better than the last few days. She is however on amiodarone drip she is also on Cardizem drip at 15 mg per hour. Patient was on esmolol drip yesterday. Patient is having dialysis again today. She is hemodynamically stable, not requiring any vasopressors. Her CBC showed WBC count of 7.1 hemoglobin of 7.6. Her electrolytes are relatively normal slightly elevated potassium of 5.3. Bicarb is 21. BUN is 84 creatinine is 4.13. Chest x-ray continues to show findings compatible with pulmonary edema, however improving steadily with dialysis and ultrafiltration. Objective - Vital Signs Vital signs: Vital Signs Temp 97.8 F 05/11/19 10:17 Pulse 64 05/11/19 10:30 Resp 34 H 05/11/19 10:30 BP 103/52 05/11/19 10:30 Pulse Ox 96 05/11/19 10:30 Intake & Output 05/10/19 05/11/19 05/11/19 18:59 06:59 18:59 Intake Total 265.0 100 110.5 Output Total 3030 45 3030 Balance -2765.0 55 -2919.5 Weight 144.4 kg Intake: IV 40 100 20 0.9 NS 40 100 20 Intake, IV Titration 125.0 90.5 Amount Diltiazem 125 mg In 125.0 90.5 Sodium Chloride 0.9% 100 ml @ Per Protocol IV .Q0M [facility] Rx#:[id number] Oral 100 Output: Urine 30 45 30 Hemodialysis 3000 3000 Other: Voiding Method Indwelling Catheter Indwelling Catheter - Exam Physical Exam: obese 63-year-old female, remains on BiPAP, mild respiratory distress noted. ABG was noted. HEENT: Neck supple, no neck masses, no JVD. No adenopathy. HEENT:[Neck is supple.] [No neck masses.] [No thyromegaly.] [No JVD.] Chest: [Symmetrical chest expansion, minimal crackles at the bases. No chest wall tenderness. Cardiac Exam: [Normal S1 and S2, no S3 gallop, no murmur.] Abdomen: [Obese, Soft, nontender, no megaly, no rebound, no guarding, normal bowel sounds.] Extremities: [No clubbing, 1+ bipedal edema, no cyanosis.] Good pulses bilaterally. Neurological Exam: Alert and oriented 3. [No focal neurologic deficit.] Lymphatics: No lymphadenopathy. Psychiatric: Normal mood affect and normal mental status examination. Skin: No rashes. - Labs CBC & Chem 7: 05/11/19 04:56 05/11/19 04:56 Labs: Abnormal Lab Results - Last 24 Hours (Table) 05/10/19 05/10/19 05/10/19 Range/Units 04:38 11:54 17:02 RBC (3.80-5.40) m/uL Hgb (11.4-16.0) gm/dL Hct (34.0-46.0) % MCV (80.0-100.0) fL RDW (11.5-15.5) % Plt Count (150-450) k/uL Lymphocytes # (Manual) (1.0-4.8) k/uL Nucleated RBCs (0-0) /100 WBC ABG pH (7.35-7.45) ABG pCO2 (35-45) mmHg ABG pO2 (83-108) mmHg Potassium (3.5-5.1) mmol/L Carbon Dioxide (22-30) mmol/L BUN (7-17) mg/dL Creatinine (0.52-1.04) mg/dL Glucose (74-99) mg/dL POC Glucose (mg/dL) 169 H 153 H (75-99) mg/dL Calcium (8.4-10.2) mg/dL Phosphorus (2.5-4.5) mg/dL Magnesium (1.6-2.3) mg/dL Iron 246 H (50-170) ug/dL Iron Saturation 90.11 H (12.00-45.00) 05/10/19 05/11/19 05/11/19 Range/Units 20:37 04:56 04:56 RBC 2.20 L (3.80-5.40) m/uL Hgb 7.6 L (11.4-16.0) gm/dL Hct 23.0 L (34.0-46.0) % MCV 104.8 H (80.0-100.0) fL RDW 19.5 H (11.5-15.5) % Plt Count 80 L (150-450) k/uL Lymphocytes # (Manual) 0.14 L (1.0-4.8) k/uL Nucleated RBCs 6 H (0-0) /100 WBC ABG pH (7.35-7.45) ABG pCO2 (35-45) mmHg ABG pO2 (83-108) mmHg Potassium 5.3 H (3.5-5.1) mmol/L Carbon Dioxide 21 L (22-30) mmol/L BUN 84 H (7-17) mg/dL Creatinine 4.13 H (0.52-1.04) mg/dL Glucose 162 H (74-99) mg/dL POC Glucose (mg/dL) 163 H (75-99) mg/dL Calcium 7.6 L (8.4-10.2) mg/dL Phosphorus 7.4 H (2.5-4.5) mg/dL Magnesium 2.6 H (1.6-2.3) mg/dL Iron (50-170) ug/dL Iron Saturation (12.00-45.00) 05/11/19 05/11/19 Range/Units 07:09 10:09 RBC (3.80-5.40) m/uL Hgb (11.4-16.0) gm/dL Hct (34.0-46.0) % MCV (80.0-100.0) fL RDW (11.5-15.5) % Plt Count (150-450) k/uL Lymphocytes # (Manual) (1.0-4.8) k/uL Nucleated RBCs (0-0) /100 WBC ABG pH 7.50 H (7.35-7.45) ABG pCO2 30 L (35-45) mmHg ABG pO2 82 L (83-108) mmHg Potassium (3.5-5.1) mmol/L Carbon Dioxide (22-30) mmol/L BUN (7-17) mg/dL Creatinine (0.52-1.04) mg/dL Glucose (74-99) mg/dL POC Glucose (mg/dL) 158 H (75-99) mg/dL Calcium (8.4-10.2) mg/dL Phosphorus (2.5-4.5) mg/dL Magnesium (1.6-2.3) mg/dL Iron (50-170) ug/dL Iron Saturation (12.00-45.00) Microbiology - Last 24 Hours (Table) 05/05/19 04:39 Blood Culture - Final Blood No Growth after 144 hours 05/05/19 04:12 Blood Culture - Final Blood No Growth after 144 hours Assessment and Plan Assessment: Impression: 1 shortness of breath with acute hypoxic respiratory failure secondary to sepsis, urinary tract infection, anemia, and suspect pulmonary edema which is possibly cardiogenic or noncardiogenic in nature. at this point I believe that the combination of both. She does have elevated BNP level, echocardiogram showed mildly impaired ejection fraction 45%, severe aortic stenosis is also noted on the echocardiogram. Peak gradient across the aortic valve is 76 with a mean of 43.8 . Patient seems to be responding well to hemodialysis and ultrafiltration. Hence we'll continue dialysis. Has been on dialysis on a daily basis for the last 4 days 2 acute kidney injury secondary to ATN, possible vancomycin nephrotoxicity. 3 gram-positive bacteremia , resolved based on follow-up blood cultures 4 Enterococcus faecalis urinary tract infection, being addressed by infectious disease. 5 metastatic breast cancer patient has been on chemotherapy until recently. The possibility of lymphangitic carcinomatosis from breast cancer metastatic to the lungs is not entirely ruled out, however the patient is not a good candidate for bronchoscopy and biopsy at this point. 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 8 chemotherapy induced pancytopenia 9 metabolic acidosis secondary to sepsis and acute kidney injury. 10 atrial fibrillation with RVR, not controlled in spite of amiodarone and esmolol drip. Recommendation: Continue BiPAP, Continue dialysis and ultrafiltration Continue antibiotics steroids bronchodilators and diuretics Continue GI and DVT prophylaxis Continue amiodarone and Cardizem drip rate today seems to be better controlled than rate in the last few days. Continue updrafts. Continue Solu-Medrol. Continue insulin and close observation of her sugars, keep it under control. Patient will remain in the ICU, remains critically ill, she is very well aware that she may eventually require intubation mechanical ventilation if she does not make significant improvement in the next couple of days. ABG was reviewed. Not quite ready for intubation at this point. Prognosis remains poor and guarded Time with Patient: Less than 30
[2019-05-11] MEDS: METOPROLOL SUCCINATE (ER) 50 MG TAB.ER.24H PO SCH (11:12)
[2019-05-11] MEDS: APIXABAN 5 MG TAB PO SCH (11:12)
[2019-05-11] MEDS: FLUTICASONE 50MCG/SPRAY NASAL 16GM EA NOSTRIL SCH (11:13)
[2019-05-11] MEDS: GABAPENTIN 300 MG CAP PO SCH (11:14)
[2019-05-11] MEDS: SODIUM BICARBONATE TAB 650 MG TAB PO SCH ×2 (11:14→20:13)
[2019-05-11] MEDS: ASPIRIN 81 MG PO SCH (11:14)
[2019-05-11] MEDS: CEFEPIME 1 GM in SODIUM CHLORIDE 0.9% 50 ML IVPB SCH (11:23)
[2019-05-11 12:04] LABS: Glucose,Whole Blood 186 mg/dL (75-99)
--- NOTE | 2019-05-11 16:41 | PN ---
PROGRESS NOTE . DATE OF SERVICE: 05/11/2019. This 64-year-old woman who was admitted with multiple medical issues, including right lower lobe pneumonia also had renal failure and subsequently CHF and possibly ARDS also. The patient is on continuous dialysis almost every day. The patient is improving significantly. The patient was BiPAP dependent. Chest x-ray showed minimal improvement. Patient being closely monitored in ICU. Multiple consultants are following the patient closely including Nephrology and pulmonology, Dr. Delacruz. There was no chest pain. No palpitation. PAST MEDICAL HISTORY: Reviewed. REVIEW OF SYSTEMS: Cardiovascular system: No angina or palpitations. RESPIRATORY: As mentioned earlier. GI no nausea or vomiting. no dysuria. Nervous systems: No numbness or weakness. CURRENT MEDICATIONS: Reviewed and include: 1. [place] 5 mg q.4 p.r.n. 2. DuoNeb q.i.d. and p.r.n. 3. Xanax 0.5 t.i.d. 4. Amiodarone drip. 5. Eliquis 5 mg p.o. b.i.d. 6. Aspirin 160 mg. 7. Lipitor 140 mg. 8. Pulmicort 1 mg b.i.d. 10.Cardizem drip. 11.Flonase. 12.Neurontin 300 mg p.o. daily. 13.Solu-Medrol 40 IV q.8h. 14.Toprol-XL. 15.Lopressor. 16.Singular. 17.Narcan. 18.Protonix. 19.MiraLAX. 20.Senokot S. 21.Silvadene. 22.Sodium bicarb. 23.Carafate. 24.Doses reviewed. PHYSICAL EXAM: Patient is alert, oriented x3. The pulse is 34, blood pressure 103/52, respiration 18. Temperature is 97.8, pulse ox 95% on high-flow cannula. HEENT: Conjunctivae normal. Oral mucosa moist. NECK is no jugular venous distention. No carotid bruit. No lymph node enlargement. Cardiovascular system: S1, S2 muffled. Respirations: Breath sounds diminished in the bases. Bilateral scattered rhonchi and crackles. ABDOMEN: Soft, obese, nontender. No mass palpable. LEGS: Minimal edema. NERVOUS SYSTEM: Diffusely weak. LABS: WBC 7.2, hemoglobin 7.6, platelets are 80. ABGs noted. Sodium 139, potassium 5.3, creatinine 4.13. ASSESSMENT: 1. Acute right lower lobe pneumonia with possibly neutropenic sepsis present on admission. 2. Acute renal failure with acute tubular necrosis multifactorial with prerenal factors, worsening started on new onset hemodialysis. 3. Fluid overload, congestive heart failure acute exacerbation with acute on chronic systolic dysfunction, ejection fraction 40-50 percent. 4. Severe aortic stenosis, moderate severe aortic regurgitation and mild to moderate tricuspid regurgitation. 5. Possibly ARDS. 6. Atrial fibrillation with fast ventricular rate. 7. Acute hypoxic respiratory failure on BiPAP. 8. Enterococcus faecalis, vancomycin sensitive from the urine culture. 9. Mary albicans in the sputum. 10.Pancytopenia secondary to chemotherapy. 11.Carcinoma of breast 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. 12.Hyponatremia. 13.Increased AST. 14.Obesity with body mass index of 63.9. 15.Hypertension. 16.History of left-sided cerebrovascular accident. 17.History of breast surgery. 18.Remote history of nicotine dependence. RECOMMENDATIONS AND DISCUSSION: Recommend to continue current medications, management and symptomatic treatment. Otherwise, at this time, I recommend continue with current medications. Continue symptomatic treatment. Continue the bronchodilators. Continue the hemodialysis, antibiotics. Guarded prognosis because of multiple complex medical problems. Further recommendations to follow. MMODL / IJN: [id number] / TARIK
[2019-05-11 16:59] LABS: Glucose,Whole Blood 145 mg/dL (75-99)
--- NOTE | 2019-05-11 19:19 | PN ---
PROGRESS NOTE Santa is a 64-year-old lady who is admitted to hospital with sepsis, renal failure, and was in atrial fibrillation with rapid ventricular rate for which we are involved in her care. She is currently on Eliquis for anticoagulation. Has just completed her dialysis. Appears fatigued and tired and still has the BiPAP machine on. She converted back to sinus rhythm this morning. Heart rate is 63 beats per minute. Blood pressure is 103/50. Chest exam reveals good air entry bilaterally. Heart exam reveals first and second heart sounds. No gallop. Exam of extremities did not reveal any edema. LABS: Show a hemoglobin of 7.6, potassium is 5.3, BUN is 84, creatinine is 4. ASSESSMENT: 1. Persistent atrial fibrillation. The patient converted to sinus rhythm. 2. End-stage renal disease on hemodialysis. PLAN: Will decrease her Cardizem drip to 5 mg an hour. She is not able to take any p.o. medications. If she can, stop the Cardizem drip and start her on oral beta linda. She is on IV amiodarone and can be switched to p.o. amiodarone whenever she is able to take the medication. MMODL / IJN: [id number] /
[2019-05-11] MEDS: ATORVASTATIN 40 MG TAB PO SCH (20:12)
[2019-05-11] MEDS: SENNOSIDES-DOCUSATE SODIUM 1 EACH TAB PO SCH (20:13)
[2019-05-11] MEDS: MONTELUKAST 10 MG TAB PO SCH (20:13)
[2019-05-11] MEDS ORDERED: AMIODARONE 300 MG in DEXTROSE 5% IN WATER 250 ML IV SCH ×2 (20:30)
[2019-05-11 21:01] LABS: Glucose,Whole Blood 157 mg/dL (75-99)
[2019-05-11] MEDS: IPRATROPIUM-ALBUTEROL 3 ML NEB INHALATION PRN (23:08)
[2019-05-12] MEDS: methylPREDNISolone SOD SUCCI 40 MG/ML 1 ML VIAL IV SCH ×2 (00:08→07:08)
[2019-05-12] MEDS: CLOTRIMAZOLE TROCHE 10 MG TROCHE MUCOUS MEM SCH ×3 (00:08→10:33)
[2019-05-12] MEDS: APIXABAN 5 MG TAB PO SCH ×2 (00:08→08:37)
[2019-05-12 05:06] LABS: Albumin 3.1 g/dL (3.5-5.0); Calcium 7.4 mg/dL (8.4-10.2); Potassium 5.4 mmol/L (3.5-5.1); Total Bilirubin 1.1 mg/dL (0.2-1.3); Total Protein 6.3 g/dL (6.3-8.2)
[2019-05-12 05:15] LABS: Anisocytosis Moderate; HCT 23.3 % (34.0-46.0); HGB 7.6 gm/dL (11.4-16.0); MCH 33.4 pg (25.0-35.0); MCHC 32.7 g/dL (31.0-37.0); MCV 102.3 fL (80.0-100.0); Macrocytosis Moderate; Mean Platelet Volume 10.9; RBC 2.27 m/uL (3.80-5.40); RDW 20.2 % (11.5-15.5)
[2019-05-12 05:18] LABS: Platelet Count 79 k/uL (150-450)
[2019-05-12 05:50] LABS: Band Neutrophils % 3 %; Lymphocytes # (M) 0.13 k/uL (1.0-4.8); Neutrophils % (M) 93 %; Nucleated Red Blood Cells 5 /100 WBC (0-0); Total Cells Counted 200; WBC 6.6 k/uL (3.8-10.6)
[2019-05-12 05:51] LABS: Hypersegmented Neutrophils Present; Large Platelets Present; Polychromasia Present
[2019-05-12] MEDS: INSULIN ASPART (NovoLOG) 100 UNIT/ML VIAL SQ SCH ×4 (07:04→21:00)
[2019-05-12] MEDS: PANTOPRAZOLE 40 MG TABLET PO SCH (07:05)
[2019-05-12] MEDS: SUCRALFATE 1 GM TAB PO SCH ×4 (07:05→21:01)
[2019-05-12] MEDS: AMIODARONE 300 MG in DEXTROSE 5% IN WATER 250 ML IV SCH ×2 (07:07)
[2019-05-12 07:16] LABS: Glucose,Whole Blood 164 mg/dL (75-99)
--- NOTE | 2019-05-12 07:56 | XR ---
EXAMINATION TYPE: XR chest 1V portable DATE OF EXAM: 05/12/2019 CLINICAL HISTORY: Difficulty breathing progress study. TECHNIQUE: Single AP portable upright view of the chest is obtained. COMPARISON: Chest x-ray from one day earlier and older studies. FINDINGS: Stable cardiomegaly with atherosclerotic aortic knob. Reticular interstitial changes bilat erally redemonstrated with improving alveolar opacities. No large pleural effusion or pneumothorax. O sseous structures are intact. IMPRESSION: Cardiomegaly and chronic parenchymal changes with improving alveolar edema and/or infiltr ates.
[2019-05-12] MEDS: BUDESONIDE 1 MG/2 ML NEBU INHALATION SCH (08:17)
[2019-05-12] MEDS: IPRATROPIUM-ALBUTEROL 3 ML NEB INHALATION SCH ×4 (08:17→19:22)
[2019-05-12] MEDS: GABAPENTIN 300 MG CAP PO SCH (08:35)
[2019-05-12] MEDS: ASPIRIN 81 MG PO SCH (08:35)
[2019-05-12] MEDS: FLUTICASONE 50MCG/SPRAY NASAL 16GM EA NOSTRIL SCH (08:35)
[2019-05-12] MEDS: SODIUM BICARBONATE TAB 650 MG TAB PO SCH ×2 (08:36→21:00)
[2019-05-12] MEDS: METOPROLOL SUCCINATE (ER) 50 MG TAB.ER.24H PO SCH (08:37)
--- NOTE | 2019-05-12 09:25 | P.PN ---
Subjective Progress Note Date: 05/12/19 This is a 64-year-old female was admitted to the hospital with sepsis, renal failure and intermittent atrial fibrillation with rapid ventricular response. Patient was put on IV Cardizem and also IV amiodarone. Patient has difficulty taking medications by mouth. Patient is back in sinus rhythm and maintaining sinus rhythm. We are switching to by mouth amiodarone and metoprolol and discontinue IV Cardizem and amiodarone. Otherwise patient is cardiac-mendoza stable. Patient does have BiPAP machine. She is also on dialysis. Her creatinine is in the range of 4-5 with a BUN of 80. We will continue with current medical therapy except changing to by mouth medications Objective - Vital Signs Vital signs: Vital Signs Temp 97.9 F 05/12/19 04:00 Pulse 69 05/12/19 08:34 Resp 16 05/12/19 07:00 BP 121/59 05/12/19 07:00 Pulse Ox 92 L 05/12/19 07:00 Intake & Output 05/11/19 05/12/19 05/12/19 18:59 06:59 18:59 Intake Total 574.25 389.334 269.583 Output Total 3040 15 0 Balance -2465.75 374.334 269.583 Weight 142.1 kg Intake: IV 130 110 20 0.9 NS 130 110 20 Intake, IV Titration 444.25 279.334 249.583 Amount Amiodarone 300 mg In 250 229.167 249.583 Dextrose 5% in Water 250 ml @ 0.5 MG/MIN 25 mls/hr IV .Q10H [facility] Rx#: [id number] Cefepime 1 gm In Sodium 50 Chloride 0.9% 50 ml @ 100 mls/hr IVPB DAILY@1200 [facility] Rx#:[id number] Diltiazem 125 mg In 144.25 50.167 Sodium Chloride 0.9% 100 ml @ Per Protocol IV .Q0M [facility] Rx#:[id number] Output: Urine 40 15 0 Hemodialysis 3000 Other: Voiding Method Indwelling Catheter - Exam GENERAL EXAM: Patient is alert and oriented and doesn't appear to be in any acute distress. Patient is on BiPAP HEENT: Normocephalic. Normal reaction of pupils, equal size, normal range of extraocular motion. No erythema or exudates in the throat. NECK: No masses, no nuchal rigidity. CHEST: No chest wall deformity. LUNGS: Distant breath sounds both sides HEART: S1 and S2 normal with no audible mumurs or gallops. Regular rhythm, femorals equal on both sides.. ABDOMEN: No hepatosplenomegaly, normal bowel sounds, no guarding or rigidity. SKIN: No rashes CENTRAL NERVOUS SYSTEM: No focal deficits. EXTREMITIES: No cyanosis, clubbing or edema. - Labs CBC & Chem 7: 05/12/19 04:29 05/12/19 04:34 Labs: Abnormal Lab Results - Last 24 Hours (Table) 05/11/19 05/11/19 05/11/19 Range/Units 10:09 11:52 16:47 RBC (3.80-5.40) m/uL Hgb (11.4-16.0) gm/dL Hct (34.0-46.0) % MCV (80.0-100.0) fL RDW (11.5-15.5) % Plt Count (150-450) k/uL Lymphocytes # (Manual) (1.0-4.8) k/uL Nucleated RBCs (0-0) /100 WBC ABG pH 7.50 H (7.35-7.45) ABG pCO2 30 L (35-45) mmHg ABG pO2 82 L (83-108) mmHg Sodium (137-145) mmol/L Potassium (3.5-5.1) mmol/L Carbon Dioxide (22-30) mmol/L BUN (7-17) mg/dL Creatinine (0.52-1.04) mg/dL Glucose (74-99) mg/dL POC Glucose (mg/dL) 186 H 145 H (75-99) mg/dL Calcium (8.4-10.2) mg/dL AST (14-36) U/L Albumin (3.5-5.0) g/dL 05/11/19 05/12/19 05/12/19 Range/Units 20:50 04:29 04:34 RBC 2.27 L (3.80-5.40) m/uL Hgb 7.6 L (11.4-16.0) gm/dL Hct 23.3 L (34.0-46.0) % MCV 102.3 H (80.0-100.0) fL RDW 20.2 H (11.5-15.5) % Plt Count 79 L (150-450) k/uL Lymphocytes # (Manual) 0.13 L (1.0-4.8) k/uL Nucleated RBCs 5 H (0-0) /100 WBC ABG pH (7.35-7.45) ABG pCO2 (35-45) mmHg ABG pO2 (83-108) mmHg Sodium 136 L (137-145) mmol/L Potassium 5.4 H (3.5-5.1) mmol/L Carbon Dioxide 21 L (22-30) mmol/L BUN 88 H (7-17) mg/dL Creatinine 4.34 H (0.52-1.04) mg/dL Glucose 179 H (74-99) mg/dL POC Glucose (mg/dL) 157 H (75-99) mg/dL Calcium 7.4 L (8.4-10.2) mg/dL AST 58 H (14-36) U/L Albumin 3.1 L (3.5-5.0) g/dL 05/12/19 Range/Units 07:04 RBC (3.80-5.40) m/uL Hgb (11.4-16.0) gm/dL Hct (34.0-46.0) % MCV (80.0-100.0) fL RDW (11.5-15.5) % Plt Count (150-450) k/uL Lymphocytes # (Manual) (1.0-4.8) k/uL Nucleated RBCs (0-0) /100 WBC ABG pH (7.35-7.45) ABG pCO2 (35-45) mmHg ABG pO2 (83-108) mmHg Sodium (137-145) mmol/L Potassium (3.5-5.1) mmol/L Carbon Dioxide (22-30) mmol/L BUN (7-17) mg/dL Creatinine (0.52-1.04) mg/dL Glucose (74-99) mg/dL POC Glucose (mg/dL) 164 H (75-99) mg/dL Calcium (8.4-10.2) mg/dL AST (14-36) U/L Albumin (3.5-5.0) g/dL Microbiology - Last 24 Hours (Table) 05/05/19 04:39 Blood Culture - Final Blood No Growth after 144 hours 05/05/19 04:12 Blood Culture - Final Blood No Growth after 144 hours Assessment and Plan (1) Paroxysmal atrial fibrillation Current Visit: Yes Status: Acute Code(s): I48.0 - PAROXYSMAL ATRIAL FI BRILLATION SNOMED Code(s): 091495305 (2) Acute renal failure Current Visit: Yes Status: Acute Priority: High Code(s): N17.9 - ACUTE KIDNEY FAILURE, UNSPECIFIED SNOMED Code(s): 45801935 (3) Metastatic breast carcinoma Current Visit: Yes Status: Chronic Priority: Medium Code(s): C50.919 - MALIGNANT NEOPLASM OF UNSP SITE OF UNSPECIFIED FEMALE BREAST SNOMED Code(s): 893735999 Plan: Continue medical therapy. Attempts to change her medications. This year IV amiodarone and Cardizem
[2019-05-12] MEDS: AMIODARONE 200 MG TAB PO SCH ×3 (09:52→21:00)
--- NOTE | 2019-05-12 11:07 | P.PN ---
Subjective Patient is seen in follow-up for acute kidney injury. She is currently hemodialysis dependent. Remains oliguric. No chest pain or shortness of br eath. Tolerating near 3 L ultrafiltration almost daily. Vital signs are stable. General: The patient appeared well nourished and normally developed. HEENT: Head exam is unremarkable. Neck is without jugular venous distension. LUNGS: Lungs are clear to auscultation and percussion. Breath sounds decreased. HEART: Rate and Rhythm are regular. First and second heart sounds normal. No murmurs, rubs or gallops. ABDOMEN: Abdominal exam reveals normal bowel sounds. Non-tender and non- distended. No evidence of peritonitis. EXTREMITITES: 1+ edema. Objective - Vital Signs Vital signs: Vital Signs Temp 98.4 F 05/12/19 08:00 Pulse 67 05/12/19 10:00 Resp 22 05/12/19 10:00 BP 118/60 05/12/19 10:00 Pulse Ox 91 L 05/12/19 10:00 Intake & Output 05/11/19 05/12/19 05/12/19 18:59 06:59 18:59 Intake Total 574.25 389.334 453.583 Output Total 3040 15 0 Balance -2465.75 374.334 453.583 Weight 142.1 kg Intake: IV 130 110 40 0.9 NS 130 110 40 Intake, IV Titration 444.25 279.334 313.583 Amount Amiodarone 300 mg In 250 229.167 249.583 Dextrose 5% in Water 250 ml @ 0.5 MG/MIN 25 mls/hr IV .Q10H [facility] Rx#: [id number] Cefepime 1 gm In Sodium 50 Chloride 0.9% 50 ml @ 100 mls/hr IVPB DAILY@1200 [facility] Rx#:[id number] Diltiazem 125 mg In 144.25 50.167 64 Sodium Chloride 0.9% 100 ml @ Per Protocol IV .Q0M [facility] Rx#:[id number] Oral 100 Output: Urine 40 15 0 Hemodialysis 3000 Other: Voiding Method Indwelling Catheter - Labs CBC & Chem 7: 05/12/19 04:29 05/12/19 04:34 Labs: Abnormal Lab Results - Last 24 Hours (Table) 05/11/19 05/11/19 05/11/19 Range/Units 11:52 16:47 20:50 RBC (3.80-5.40) m/uL Hgb (11.4-16.0) gm/dL Hct (34.0-46.0) % MCV (80.0-100.0) fL RDW (11.5-15.5) % Plt Count (150-450) k/uL Lymphocytes # (Manual) (1.0-4.8) k/uL Nucleated RBCs (0-0) /100 WBC Sodium (137-145) mmol/L Potassium (3.5-5.1) mmol/L Carbon Dioxide (22-30) mmol/L BUN (7-17) mg/dL Creatinine (0.52-1.04) mg/dL Glucose (74-99) mg/dL POC Glucose (mg/dL) 186 H 145 H 157 H (75-99) mg/dL Calcium (8.4-10.2) mg/dL AST (14-36) U/L Albumin (3.5-5.0) g/dL 05/12/19 05/12/19 05/12/19 Range/Units 04:29 04:34 07:04 RBC 2.27 L (3.80-5.40) m/uL Hgb 7.6 L (11.4-16.0) gm/dL Hct 23.3 L (34.0-46.0) % MCV 102.3 H (80.0-100.0) fL RDW 20.2 H (11.5-15.5) % Plt Count 79 L (150-450) k/uL Lymphocytes # (Manual) 0.13 L (1.0-4.8) k/uL Nucleated RBCs 5 H (0-0) /100 WBC Sodium 136 L (137-145) mmol/L Potassium 5.4 H (3.5-5.1) mmol/L Carbon Dioxide 21 L (22-30) mmol/L BUN 88 H (7-17) mg/dL Creatinine 4.34 H (0.52-1.04) mg/dL Glucose 179 H (74-99) mg/dL POC Glucose (mg/dL) 164 H (75-99) mg/dL Calcium 7.4 L (8.4-10.2) mg/dL AST 58 H (14-36) U/L Albumin 3.1 L (3.5-5.0) g/dL Microbiology - Last 24 Hours (Table) 05/05/19 04:39 Blood Culture - Final Blood No Growth after 144 hours Assessment and Plan Plan: assessment: 1. Acute kidney injury secondary to ATN secondary to sepsis and vancomycin toxicity. No evidence of hydronephrosis noted on kidney ultrasound. Baseline cr 1. Currently hemodialysis dependent. Started on dialysis 05/05/2019. Currently oliguric. Serologies negative. 2. Staph lugduneisis bacteremia. Urine culture positive for enterococcus faecalis. Maintained on IV antibiotics. 3. Breast cancer with mets. Oncology following. 4. Hyponatremia secondary to KIT. Currently hypervolemic. Improved. 5. Metabolic acidosis due to KIT and IVFs. Maintained on oral sodium bicarbonate. 6. Mild hyperkalemia secondary to acute kidney injury. 7. Pancytopenia due to chemotherapy. 8. Volume overload. Improving with daily ultrafiltration. 9. A. fib with RVR maintained on amiodarone drip. Will be switched over to oral amiodarone today. Plan: Currently seen while undergoing hemodialysis. Continue with daily hemodialysis for now. Continue to monitor renal function and urine output. Avoid nephrotoxins. Patient will need permacath placed and the groin catheter removed. behavioral health care manager to help set up outpatient hemodialysis.
--- NOTE | 2019-05-12 11:53 | PN ---
PROGRESS NOTE PULMONARY/CRITICAL CARE PROGRESS NOTE: DATE OF SERVICE: May 12, 2019 This is a patient who was admitted back on April 30. Her admission diagnosis included fever, pneumonia, and renal failure. The patient was initially admitted to [address] [place] [address] on the and transferred to the ICU on the 05 of May. From the through the 09 of May, she was on BiPAP therapy for respiratory failure. Currently, she is on AIRVO at 45 L/minute and 50% FiO2. The patient does have a history of metastatic breast cancer. She is getting saline at 10 mL an hour. She is also on amiodarone or Pacerone at 0.5 mg/minute and Cardizem drip at 5 mg an hour. For the last 7 days, she has undergone hemodialysis with net fluid removal. Her urine culture showed evidence of Enterococcus faecalis and her blood culture showed evidence of Staphylococcus lugdunenisis. She is being treated for these infections. Currently, she is doing a bit better. She states that she is feeling okay. She does get fatigued from time to time and does need to go back on BiPAP therapy. Though, over the last couple of days, she apparently has done a bit better. Currently, she admits to being mildly short of breath. No pain. No discomfort. No fever. No chills. No cough. No wheezing. No phlegm production. PHYSICAL EXAMINATION: VITAL SIGNS: Current vital signs are reviewed. Her temperature is 98.4, heart rate is 67, respiratory rate 22, blood pressure 118/60, mean 79, saturations are about 91% to 93% on the AIRVO. GENERAL: She has mild conversational dyspnea. No use of accessory muscles. No audible wheezing. HEENT: Examination is grossly unremarkable. Mucous membranes are moist. AIRVO cannula in place. NECK: Supple. Full range of motion. No adenopathy or thyromegaly. Neck veins are flat. CARDIOVASCULAR: Examination reveals regular rhythm and rate. Heart rate mid to high 60s. S1, S2 normal. No murmur. Heart sounds are distant. LUNGS: Reveal a few scattered coarse rhonchi. No wheezes or crackles. Breath sounds are equal bilaterally. ABDOMEN: Obese. Bowel sounds are heard. EXTREMITIES: Are intact. There is mild edema. SKIN: Without rash. NEUROLOGIC: Examination is brief but nonfocal. MICROBIOLOGY: Microbiology shows some Mary albicans in her sputum. She has received refused treatment for this. She has Enterococcus faecalis in her urine and her blood cultures back on April 30 were positive for Staphylococcus lugdunenisis. LABORATORY DATA: Laboratory data is reviewed. White count 6.6, hemoglobin 7.6, hematocrit 23.3, platelet count 79,000. Sodium 136, potassium 5.4, chloride 101, CO2 of 21. Anion gap is 14. BUN and creatinine were 88 and 4.34. The electrolyte profile is consistent with an anion gap metabolic acidosis secondary to renal failure. Her albumin is 3.1. Chest x-ray from the shows evidence of cardiomegaly and some chronic parenchymal changes as well as improving alveolar and interstitial edema. MEDICATIONS: Medications are reviewed. They appear to be appropriate. They were reviewed. She is currently on cefepime, Mycelex troches, which she is refusing and her usual cardiac medications. ASSESSMENT: 1. Shortness of breath with acute hypoxemic respiratory failure secondary to sepsis, urinary tract infection, anemia, and pulmonary edema. 2. Acute kidney injury/acute tubular necrosis, with hemodialysis x7 days in a row. 3. Gram-positive bacteremia secondary to Staph species. 4. Enterococcus faecalis urinary tract infection. 5. 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 6. Obesity. 7. History of cerebrovascular accident. 8. Chemotherapy-induced pancytopenia. 9. Anion gap metabolic acidosis secondary to renal failure. 10.History of atrial fibrillation with rapid ventricular response, currently on IV amiodarone and Cardizem drip, but now normal sinus rhythm. PLAN: The patient seems to be doing a bit better. She is currently in sinus rhythm. Amiodarone will be switched to oral amiodarone from IV amiodarone. The patient will continue on hemodialysis for net fluid loss. Her infections are being treated. She appears to be clinically better. She is on AIRVO. She is not getting much in the way of IV fluids. Additional recommendations and suggestions are forthcoming. She remains on Cardizem drip of 5 mg an hour. We will continue to follow. She has ongoing GI and DVT prophylaxis. We will continue updrafts. Corticosteroids can be discontinued. No additional recommendations are made. Prognosis is guarded. CRITICAL CARE TIME: 33 minutes. MMODL / IJN: [id number] /
[2019-05-12 12:33] LABS: Glucose,Whole Blood 167 mg/dL (75-99)
[2019-05-12] MEDS: CEFEPIME 1 GM in SODIUM CHLORIDE 0.9% 50 ML IVPB SCH (12:37)
--- NOTE | 2019-05-12 13:11 | P.PN ---
Subjective Progress Note Date: 05/12/19 Principal diagnosis: Fever, congestive heart failure, acute renal failure, metastatic breast cancer In f/u today pt remains in ICU, slight improvements in her condition, she is ge tting dialysis today, she is not on BiPap, she denies pain, nausea, she wants to sit on the commode to have a BM, denies abd pain or cramping Objective - Vital Signs Vital signs: Vital Signs Temp 98.4 F 05/12/19 08:00 Pulse 73 05/12/19 12:25 Resp 22 05/12/19 10:00 BP 118/60 05/12/19 10:00 Pulse Ox 91 L 05/12/19 10:00 Intake & Output 05/11/19 05/12/19 05/12/19 18:59 06:59 18:59 Intake Total 574.25 389.334 453.583 Output Total 3040 15 0 Balance -2465.75 374.334 453.583 Weight 142.1 kg 142.1 kg Intake: IV 130 110 40 0.9 NS 130 110 40 Intake, IV Titration 444.25 279.334 313.583 Amount Amiodarone 300 mg In 250 229.167 249.583 Dextrose 5% in Water 250 ml @ 0.5 MG/MIN 25 mls/hr IV .Q10H [facility] Rx#: [id number] Cefepime 1 gm In Sodium 50 Chloride 0.9% 50 ml @ 100 mls/hr IVPB DAILY@1200 [facility] Rx#:[id number] Diltiazem 125 mg In 144.25 50.167 64 Sodium Chloride 0.9% 100 ml @ Per Protocol IV .Q0M [facility] Rx#:[id number] Oral 100 Output: Urine 40 15 0 Hemodialysis 3000 Other: Voiding Method Indwelling Catheter - Constitutional General appearance: Present: cooperative, mild distress, obese - EENT Eyes: Present: anicteric sclerae, EOMI - Respiratory Respiratory: bilateral: rales (significantly improved) - Cardiovascular Rhythm: regular Heart sounds: normal: S1, S2 Abnormal Heart Sounds: Present: systolic murmur. Absent: diastolic murmur, rub, S3 Gallop, S4 Gallop, click, other - Peripheral edema leg Peripheral Edema: bilateral: Trace - Gastrointestinal General gastrointestinal: Present: normal bowel sounds, soft - Neurologic Neurologic: Present: CNII-XII intact - Musculoskeletal Musculoskeletal: Present: generalized weakness - Psychiatric Psychiatric: Present: A&O x's 3, appropriate affect, intact judgment & insight - Labs CBC & Chem 7: 05/12/19 04:29 05/12/19 04:34 Labs: Abnormal Lab Results - Last 24 Hours (Table) 05/11/19 05/11/19 05/12/19 Range/Units 16:47 20:50 04:29 RBC 2.27 L (3.80-5.40) m/uL Hgb 7.6 L (11.4-16.0) gm/dL Hct 23.3 L (34.0-46.0) % MCV 102.3 H (80.0-100.0) fL RDW 20.2 H (11.5-15.5) % Plt Count 79 L (150-450) k/uL Lymphocytes # (Manual) 0.13 L (1.0-4.8) k/uL Nucleated RBCs 5 H (0-0) /100 WBC Sodium (137-145) mmol/L Potassium (3.5-5.1) mmol/L Carbon Dioxide (22-30) mmol/L BUN (7-17) mg/dL Creatinine (0.52-1.04) mg/dL Glucose (74-99) mg/dL POC Glucose (mg/dL) 145 H 157 H (75-99) mg/dL Calcium (8.4-10.2) mg/dL AST (14-36) U/L Albumin (3.5-5.0) g/dL 05/12/19 05/12/19 05/12/19 Range/Units 04:34 07:04 12:21 RBC (3.80-5.40) m/uL Hgb (11.4-16.0) gm/dL Hct (34.0-46.0) % MCV (80.0-100.0) fL RDW (11.5-15.5) % Plt Count (150-450) k/uL Lymphocytes # (Manual) (1.0-4.8) k/uL Nucleated RBCs (0-0) /100 WBC Sodium 136 L (137-145) mmol/L Potassium 5.4 H (3.5-5.1) mmol/L Carbon Dioxide 21 L (22-30) mmol/L BUN 88 H (7-17) mg/dL Creatinine 4.34 H (0.52-1.04) mg/dL Glucose 179 H (74-99) mg/dL POC Glucose (mg/dL) 164 H 167 H (75-99) mg/dL Calcium 7.4 L (8.4-10.2) mg/dL AST 58 H (14-36) U/L Albumin 3.1 L (3.5-5.0) g/dL - Imaging and Cardiology Chest x-ray: report reviewed Assessment and Plan (1) Metastatic breast carcinoma Narrative/Plan: Patient recently had change in her hormonal therapy from oral to IM. She received loading dose of Faslodex 03/14 through 04/16. Her last dose of Xgeva was on April 16. Patient will be due for xgeva and Faslodex in about 2 weeks. Patient's oral Ibrance is on hold. This is a 21 day regimen every 28 days. Patient has had difficulties tolerating Ibrance treatment. Dose can be adjusted or, patient could be considered for a different therapy. Decisions will be made after her acute condition has been treated. Patient does have hormone receptor positive breast cancer that has numerous lines of therapy that pt has never even seen yet. Current Visit: Yes Status: Chronic Priority: Medium Code(s): C50.919 - MALIGNANT NEOPLASM OF UNSP SITE OF UNSPECIFIED FEMALE BREAST SNOMED Code(s): 097285710 (2) Acute respiratory failure Narrative/Plan: Patient is being weaned off of BiPAP in the intensive care unit, continues to be monitored closely by the Critical Care team. Report of slightly improved chest x-ray today. Current Visit: Yes Status: Acute Priority: High Code(s): J96.00 - ACUTE RESPIRATORY FAILURE, UNSP W HYPOXIA OR HYPERCAPNIA SNOMED Code(s): 02284122 (3) Fever Current Visit: Yes Status: Resolved Priority: High Code(s): R50.9 - FEVER, UNSPECIFIED SNOMED Code(s): 526981319 (4) Acute renal failure Narrative/Plan: Dialysis today. Cr stable. Cont mgmt by Nephrology Current Visit: Yes Status: Acute Priority: High Code(s): N17.9 - ACUTE KIDNEY FAILURE, UNSPECIFIED SNOMED Code(s): 48113608 Plan: Patient is on eliquis for atrial fibrillation. Close monitoring for bleeding. Platelet count today is 79,000. As long as platelets are greater than 50,000 she is okay for anticoagulation.
--- NOTE | 2019-05-12 16:11 | PN ---
PROGRESS NOTE DATE OF SERVICE: 05/02/2019. This 64-year-old woman who was admitted with multiple medical issues, including right lower lobe pneumonia, had CHF, renal failure and possibly ARDS, also. Patient is hypoxic. Patient is on high-flow nasal cannula at this time. Patient was vomiting after dialysis today. Continuous dialysis on a daily basis has been done for the last several days. The chest x-ray, which was personally reviewed by me, done today showed significant bilateral lesions, slightly improved from previously. The patient is being closely monitored in the ICU. The patient's heart rate is normal sinus rhythm. The patient is on amiodarone and Cardizem drips, which have been tapered off. Past medical history reviewed. REVIEW OF SYSTEMS: CARDIOVASCULAR SYSTEM: As mentioned earlier. RESPIRATORY SYSTEM: As mentioned earlier. GI: As mentioned earlier. : As mentioned earlier. NERVOUS SYSTEM: No numbness, weakness. CURRENT MEDICATIONS: Reviewed. They include: 1. [place] 5 mg q.4 p.r.n. 2. DuoNeb q.i.d. and p.r.n. 3. Xanax 0.25 t.i.d. 4. Cordarone 200 mg t.i.d. 5. Eliquis 5 mg p.o. b.i.d. 6. Aspirin 160 mg. 7. Lipitor. 8. Cefepime. 9. Neurontin. 10.NovoLog. 11.Toprol-XL. 12.Lopressor. 13.Singulair. 14.Narcan. 15.Protonix. 16.MiraLAX. 17.Senokot-S. 18.Carafate. Doses are reviewed. PHYSICAL EXAMINATION: Patient is alert, oriented x3. Pulse 64, blood pressure 108/57, respiration 20, temperature 97.6, pulse ox 90% on high-flow nasal cannula. HEENT: Conjunctivae normal. Oral mucosa moist. NECK: No jugular venous distention. No carotid bruit. No lymph node enlargement. CARDIOVASCULAR SYSTEM: S1, S2 muffled. No S3. No S4. RESPIRATORY SYSTEM: Breath sounds diminished at the bases. A few scattered rhonchi and crackles. Expiratory wheezing also present, especially in the bases. ABDOMEN: Soft, obese, non-tender. LEGS: Bilateral leg edema. NERVOUS SYSTEM: No focal deficit. LABS: WBC 6.6, hemoglobin 7.6, sodium 136, potassium 5.4. Creatinine is 4.34. ASSESSMENT: 1. Acute right lower lobe pneumonia with possible neutropenic sepsis, present on admission. 2. Acute renal failure, acute tubular necrosis, multifactorial, with prerenal factors, worsening; started on new hemodialysis. 3. Fluid overload with congestive heart failure, acute exacerbation, with acute on chronic systolic dysfunction, ejection fraction 40% to 50%, with acute hypoxic respiratory failure. 4. Severe aortic stenosis, moderate to severe aortic regurgitation and mild to moderate tricuspid regurgitation. 5. Possibly acute respiratory distress syndrome. 6. Atrial fibrillation with fast ventricular rate, paroxysmal. 7. Acute hypoxic respiratory failure, on BiPAP. 8. Enterococcus faecalis, vancomycin-sensitive, from urine culture. 9. Mary albicans in sputum. 10.Pancytopenia secondary to chemotherapy. 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 12.Hyponatremia. 13.Increased AST. 14.Obesity with body mass index of 63.9. 15.Hypertension. 16.History of left-sided cerebrovascular accident. 17.History of breast surgery. 18.Remote history of nicotine dependence. 19.FULL CODE. RECOMMENDATIONS AND DISCUSSION: In this 64-year-old woman who presented with multiple complex medical issues, we will monitor the patient closely, continue the current medications, continue symptomatic treatment. Will continue with the hemodialysis. Continue the bronchodilators. Continue the rest of the medications. Otherwise, I would also recommend continuing with anticoagulation. Repeat labs. The patient is also on beta blockers. Will closely follow with multiple consultants. Prognosis guarded. Further recommendations to follow. MMODL / IJN: [id number] /
[2019-05-12 17:34] LABS: Glucose,Whole Blood 152 mg/dL (75-99)
[2019-05-12 20:44] LABS: Glucose,Whole Blood 152 mg/dL (75-99)
[2019-05-12] MEDS: SENNOSIDES-DOCUSATE SODIUM 1 EACH TAB PO SCH ×2 (21:00→21:15)
[2019-05-12] MEDS: ATORVASTATIN 40 MG TAB PO SCH (21:01)
[2019-05-12] MEDS: MONTELUKAST 10 MG TAB PO SCH (21:14)
--- NOTE | 2019-05-12 21:28 | P.PN ---
Subjective Progress Note Date: 05/12/19 Pleasant 63-year-old female is a complex past medical history regarding her breast carcinoma. 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 Because of increasing pain and neurological difficulties she was evaluated was treated with radiation therapy to the cervical and thoracic spine . She Developed extensive radiation dermatitis and esophagitis. She was hospitalized [facility] and with treatment of the skin and esophagitis she had marked improvement. She has had a subsequent hospitalization at the outside facility where she had a urinary tract infection. She now presents to Hospital feeling poorly with evidence significant weakness with fever 102, chills and evidence of new abnormality. Chest x-ray acute renal failure and generalized malaise. With fluid resuscitation antibiotic therapy she started to feel somewhat better. Cultures are in process with concerns to urinary tract infection as a source of the current bout of sepsis. 05/02/2017 the patient's renal failure continues but her fevers improved. With the elevated vancomycin level this is put on hold. 05/04/2019 patient continues to have increasing creatinine, and feels poorly with her acute renal failure. She is having some shakiness to her arms and legs, weakness and poor appetite. However is not having nausea or emesis. All the food does taste poorly. She's had some increased difficulties with her oral cavity possibly thrush. 05/05/2019 the patient has had a significant worsening of her status overnight. She became profoundly short of breath and required transfusions and its care unit where she's now been placed on BiPAP has been titrated down to 50% now she is feeling considerably better bacillin well. She's having no chest pains. She was seen by cardiology there is evidence of volume overload as well as worsening of her aortic stenosis and regurgitation and pulmonary hypertension. The the treatment of failure has stabilized with no further increase of her creatinine. Vancomycin level is still therapeutic but falling. 05/06/2019 patient's volume status became more problematic, more short of breath She's been seen by the nephrology and dialysis is initiated. Approximately 2- 1/2 L of fluid have been removed and she is now less short of breath but emotional upset. It is her 64th birthday. 05/08/2019 patient has had further cycles of hemodialysis and is now approximately 10 L of fluid removed by ultrafiltration, is having some improvement over status but is still having a significant acute lung injury with the significant ongoing shortness of breath and BiPAP dependence. Her mood is poor and she is anxious about her overall care. 05/09/2019 patient no longer on bipap now on high flow O2 and doing well. fells better, and is hungry 05/12/2019 patient remains on Airvo lower rate. She is less short of breath appetite started to improve although relates that food does taste poorly. After last dialysis she is less short of breath. There are plans for a more permanent dialysis catheter. Objective - Vital Signs Vital signs: Vital Signs Temp 97.8 F 05/12/19 16:00 Pulse 76 05/12/19 19:37 Resp 19 05/12/19 19:00 BP 123/58 05/12/19 19:00 Pulse Ox 92 L 05/12/19 21:15 Intake & Output 05/12/19 05/12/19 05/13/19 06:59 18:59 06:59 Intake Total 438.111 5318.916 10 Output Total 15 3300 Balance 374.334 -2168.084 10 Weight 142.1 kg 142.1 kg Intake: IV 110 120 10 0.9 NS 110 120 10 Intake, IV Titration 279.334 511.916 Amount Amiodarone 300 mg In 229.167 447.916 Dextrose 5% in Water 250 ml @ 0.5 MG/MIN 25 mls/hr IV .Q10H [facility] Rx#: [id number] Diltiazem 125 mg In 50.167 64 Sodium Chloride 0.9% 100 ml @ Per Protocol IV .Q0M [facility]COM Rx#:[id number] Oral 200 Hemodialysis 300 Output: Urine 15 0 Hemodialysis 3300 - Exam 63-year-old woman presents to Hospital feeling poorly now with a significant worsening shortness of breath, BiPAP no longer used but on high richard oxygen HEENT: Anicteric conjunctiva are pink and moist nasal mucosa grossly intact without significant lesions, and the very posterior aspect of the pharynx is now some mild white coating consistent with early thrush. Neck: The neck is supple without significant lymphadenopathy or thyromegaly. Lungs: There is symmetrical air entry with coarse crackles and wheezing to the lung chiang basilar crackles are heard Heart: Regular with the 2/6 systolic murmur left sternal border Abdomen: Obese, Positive bowel sounds soft minimal tenderness is noted in the ri ght upper quadrant without palpable masses or organomegaly. There was no guarding or rebound. Extremities: The upper extremities have excellent pulses they are symmetric, no significant petechiae or telangiectasia. No splinter hemorrhages were noted. The lower extremities have trace edema pulses 2+ and symmetric Neuro: Awake alert oriented to person place and time. There are no acute new gross focal sensory motor deficits. Skin reveals evidence of the resolution of the radiation dermatitis does have some residual color change but there is nothing ulcer. She is not having any further difficulties with the esophagitis either although does have a bit of dry mouth and throat. - Labs CBC & Chem 7: 05/12/19 04:29 05/12/19 04:34 Labs: Abnormal Lab Results - Last 24 Hours (Table) 05/12/19 05/12/19 05/12/19 Range/Units 04:29 04:34 07:04 RBC 2.27 L (3.80-5.40) m/uL Hgb 7.6 L (11.4-16.0) gm/dL Hct 23.3 L (34.0-46.0) % MCV 102.3 H (80.0-100.0) fL RDW 20.2 H (11.5-15.5) % Plt Count 79 L (150-450) k/uL Lymphocytes # (Manual) 0.13 L (1.0-4.8) k/uL Nucleated RBCs 5 H (0-0) /100 WBC Sodium 136 L (137-145) mmol/L Potassium 5.4 H (3.5-5.1) mmol/L Carbon Dioxide 21 L (22-30) mmol/L BUN 88 H (7-17) mg/dL Creatinine 4.34 H (0.52-1.04) mg/dL Glucose 179 H (74-99) mg/dL POC Glucose (mg/dL) 164 H (75-99) mg/dL Calcium 7.4 L (8.4-10.2) mg/dL AST 58 H (14-36) U/L Albumin 3.1 L (3.5-5.0) g/dL 05/12/19 05/12/19 05/12/19 Range/Units 12:21 17:23 20:33 RBC (3.80-5.40) m/uL Hgb (11.4-16.0) gm/dL Hct (34.0-46.0) % MCV (80.0-100.0) fL RDW (11.5-15.5) % Plt Count (150-450) k/uL Lymphocytes # (Manual) (1.0-4.8) k/uL Nucleated RBCs (0-0) /100 WBC Sodium (137-145) mmol/L Potassium (3.5-5.1) mmol/L Carbon Dioxide (22-30) mmol/L BUN (7-17) mg/dL Creatinine (0.52-1.04) mg/dL Glucose (74-99) mg/dL POC Glucose (mg/dL) 167 H 152 H 152 H (75-99) mg/dL Calcium (8.4-10.2) mg/dL AST (14-36) U/L Albumin (3.5-5.0) g/dL Laboratory Results WBC 6.6 k/uL (3.8-10.6) 05/12/19 04:29 RBC 2.27 m/uL (3.80-5.40) L 05/12/19 04:29 Hgb 7.6 gm/dL (11.4-16.0) L 05/12/19 04:29 Hct 23.3 % (34.0-46.0) L 05/12/19 04:29 MCV 102.3 fL (80.0-100.0) H 05/12/19 04:29 MCH 33.4 pg (25.0-35.0) 05/12/19 04:29 MCHC 32.7 g/dL (31.0-37.0) 05/12/19 04:29 RDW 20.2 % (11.5-15.5) H 05/12/19 04:29 Plt Count 79 k/uL (150-450) L 05/12/19 04:29 Neutrophils % 93 % 05/09/19 05:26 Neutrophils % (Manual) 93 % 05/12/19 04:29 Band Neutrophils % 3 % 05/12/19 04:29 Lymphocytes % 2 % 05/09/19 05:26 Lymphocytes % (Manual) 2 % 05/12/19 04:29 Monocytes % 3 % 05/09/19 05:26 Monocytes % (Manual) 3 % 05/12/19 04:29 Eosinophils % 1 % 05/09/19 05:26 Eosinophils % (Manual) 2 % 05/02/19 06:57 Basophils % 0 % 05/09/19 05:26 Neutrophils # 6.7 k/uL (1.3-7.7) 05/09/19 05:26 Neutrophils # (Manual) 6.30 k/uL (1.3-7.7) 05/12/19 04:29 Lymphocytes # 0.2 k/uL (1.0-4.8) L 05/09/19 05:26 Lymphocytes # (Manual) 0.13 k/uL (1.0-4.8) L 05/12/19 04:29 Monocytes # 0.2 k/uL (0-1.0) 05/09/19 05:26 Monocytes # (Manual) 0.20 k/uL (0-1.0) 05/12/19 04:29 Eosinophils # 0.1 k/uL (0-0.7) 05/09/19 05:26 Eosinophils # (Manual) 0.05 k/uL (0-0.7) 05/02/19 06:57 Basophils # 0.0 k/uL (0-0.2) 05/09/19 05:26 Nucleated RBCs 5 /100 WBC (0-0) H 05/12/19 04:29 Manual Slide Review Performed 05/12/19 04:29 Hypersegmented Neuts Present 05/12/19 04:29 Large Platelets Present 05/12/19 04:29 Polychromasia Present 05/12/19 04:29 Hypochromasia Slight 05/11/19 04:56 Poikilocytosis (manual Present 05/02/19 06:57 Anisocytosis Moderate 05/12/19 04:29 Anisocytosis (manual) Present 05/01/19 07:16 Macrocytosis Moderate 05/12/19 04:29 Rouleaux Present 05/02/19 06:57 PT 10.7 sec (9.0-12.0) 05/01/19 12:37 INR 1.0 (<1.2) 05/01/19 12:37 APTT 26.3 sec (22.0-30.0) 05/01/19 12:37 Sample Site rrad 05/11/19 10:09 ABG pH 7.50 (7.35-7.45) H 05/11/19 10:09 ABG pCO2 30 mmHg (35-45) L 05/11/19 10:09 ABG pO2 82 mmHg (83-108) L 05/11/19 10:09 ABG HCO3 23 mmol/L (21-25) 05/11/19 10:09 ABG Total CO2 24 mmol/L (19-24) 05/11/19 10:09 ABG O2 Saturation 96.7 % (94-97) 05/11/19 10:09 ABG Base Excess -0.2 mmol/L 05/11/19 10:09 Arian Test Yes 05/11/19 10:09 FiO2 50 % 05/11/19 10:09 Sodium 136 mmol/L (137-145) L 05/12/19 04:34 Potassium 5.4 mmol/L (3.5-5.1) H 05/12/19 04:34 Chloride 101 mmol/L (98-107) 05/12/19 04:34 Carbon Dioxide 21 mmol/L (22-30) L 05/12/19 04:34 Anion Gap 14 mmol/L 05/12/19 04:34 BUN 88 mg/dL (7-17) H 05/12/19 04:34 Creatinine 4.34 mg/dL (0.52-1.04) H 05/12/19 04:34 Est GFR (CKD-EPI)AfAm 12 (>60 ml/min/1.73 sqM) 05/12/19 04:34 Est GFR (CKD-EPI)NonAf 10 (>60 ml/min/1.73 sqM) 05/12/19 04:34 Glucose 179 mg/dL (74-99) H 05/12/19 04:34 POC Glucose (mg/dL) 152 mg/dL (75-99) H 05/12/19 20:33 POC Glu [employer] ID María Sauer 05/12/19 20:33 Plasma Lactic Acid Jon 0.9 mmol/L (0.7-2.0) 05/05/19 08:15 Calcium 7.4 mg/dL (8.4-10.2) L 05/12/19 04:34 Ionized Calcium Peter 3.9 mg/dL (4.5-5.3) L 05/09/19 05:26 Phosphorus 7.4 mg/dL (2.5-4.5) H 05/11/19 04:56 Magnesium 2.6 mg/dL (1.6-2.3) H 05/11/19 04:56 Iron 246 ug/dL (50-170) H 05/10/19 04:38 TIBC 273 ug/dL (228-460) 05/10/19 04:38 Iron Saturation 90.11 (12.00-45.00) H 05/10/19 04:38 Total Bilirubin 1.1 mg/dL (0.2-1.3) 05/12/19 04:34 AST 58 U/L (14-36) H 05/12/19 04:34 ALT 26 U/L (9-52) 05/12/19 04:34 Alkaline Phosphatase 108 U/L (38-126) 05/12/19 04:34 NT-Pro-B Natriuret Pep 90837 pg/mL 05/05/19 00:23 Total Protein 6.3 g/dL (6.3-8.2) 05/12/19 04:34 Albumin 3.1 g/dL (3.5-5.0) L 05/12/19 04:34 Triglycerides 173 mg/dL (<150) H 05/09/19 05:26 Urine Color Dark Brown 04/30/19 13:00 Urine Appearance Turbid (Clear) H 04/30/19 13:00 Urine pH 5.0 (5.0-8.0) 04/30/19 13:00 Ur Specific [place] 1.016 (1.001-1.035) 04/30/19 13:00 Urine Protein 2+ (Negative) H 04/30/19 13:00 Urine Glucose (UA) Negative (Negative) 04/30/19 13:00 Urine Ketones Negative (Negative) 04/30/19 13:00 Urine Blood Large (Negative) H 04/30/19 13:00 Urine Nitrite Negative (Negative) 04/30/19 13:00 Urine Bilirubin Negative (Negative) 04/30/19 13:00 Urine Urobilinogen 4.0 mg/dL (<2.0) 04/30/19 13:00 Ur Leukocyte Esterase Large (Negative) H 04/30/19 13:00 Urine RBC >182 /hpf (0-5) H 04/30/19 13:00 Urine WBC 40 /hpf (0-5) H 04/30/19 13:00 Urine WBC Clumps Occasional /hpf (None) H 04/30/19 13:00 Ur Squamous Epith Cells 13 /hpf (0-4) H 04/30/19 13:00 Urine Bacteria Moderate /hpf (None) H 04/30/19 13:00 Urine Mucus Occasional /hpf (None) H 04/30/19 13:00 Random Vancomycin 16.4 ug/mL 05/06/19 04:06 Serum ANNE-MARIE Interpret SEE NOTE 05/03/19 23:18 Urine Immunofixation SEE NOTE 05/03/19 14:30 LOUANN Screen NEGATIVE (NEGATIVE) 05/03/19 23:18 c-ANCA <1:20 Titer (<1:20) 05/03/19 23:18 p-ANCA <1:20 Titer (<1:20) 05/03/19 23:18 Double Strand DNA Ab NEGATIVE (NEGATIVE) 05/03/19 23:18 Anti-DNA Ab Interp <1.0 IU/mL 05/03/19 23:18 Complement C3 117.0 mg/dL (80.0-207.0) 05/03/19 23:18 Complement C4 16.4 mg/dL (10.0-53.0) 05/03/19 23:18 Tot Complement (CH50) 92 U/mL (42 - 95) 05/06/19 04:06 Hepatitis A IgM Ab Non-Reactive (Non-Reactive) 05/03/19 23:18 Hep Bs Antigen Non-Reactive (Non-Reactive) 05/06/19 14:00 Hep Bs Antibody Non-Reactive (Non-Reactive) 05/05/19 14:00 Hep Bs Antibody, Quant 3.5 mIU/mL 05/05/19 14:00 Hep B Core Total Ab Non-Reactive (Non-Reactive) 05/06/19 14:00 Hep B Core IgM Ab Non-Reactive (Non-Reactive) 05/03/19 23:18 Hep C IgG Ab Non-Reactive (Non-Reactive) 05/03/19 23:18 Influenza Type A RNA Not Detected (Not Detectd) 04/30/19 13:04 Influenza Type B (PCR) Not Detected (Not Detectd) 04/30/19 13:04 Microbiology 05/05/19 04:39 Blood Blood Culture - Final No Growth after 144 hours 05/05/19 04:12 Blood Blood Culture - Final No Growth after 144 hours 05/03/19 23:18 Blood Blood Culture - Final No Growth after 144 hours 04/30/19 11:43 Blood Blood Culture Gram Stain - Final 04/30/19 11:43 Blood Blood Culture - Final Staphylococcus lugdunenisis 05/02/19 09:21 Sputum Gram Stain - Final 05/02/19 09:21 Sputum Sputum Culture - Final Mary albicans 04/30/19 13:00 Urine,Voided Urine Culture - Final Enterococcus faecalis 04/30/19 11:43 Blood Blood Culture - Final Assessment and Plan (1) Acute renal failure Current Visit: Yes Status: Acute Priority: High Code(s): N17.9 - ACUTE KIDNEY FAILURE, UNSPECIFIED SNOMED Code(s): 41127529 (2) Gram-positive cocci bacteremia Current Visit: No Status: Acute Code(s): R78.81 - BACTEREMIA SNOMED Code(s): 099253908221 (3) Metastatic breast carcinoma Current Visit: Yes Status: Chronic Priority: Medium Code(s): C50.919 - MALIGNANT NEOPLASM OF UNSP SITE OF UNSPECIFIED FEMALE BREAST SNOMED Code(s): 158112068 (4) Urinary tract infection Narrative/Plan: 63-year-old woman who has a history of the metastaticBreast carcinoma with evidence of significant metastasis to the skeleton as well as liver metastasis presents to Hospital feeling poorly with another bout of fever chills malaise occurring after her recent treatment with chemotherapy. Been seen by her oncology team and chemotherapy is now on hold. He does not have severe neutropenia and is being monitored. There is evidence of urinary tract infection is likely etiology her current sepsis and laboratories: Positive blood culture with gram-positive cocci. She's had several prior blood cultures with gram-positive cocci that has been staphylococcus ludegensis, which is a coagulase-negative staph and since the patient does not have an indwelling catheter has not been thought to be a significant pathogen. Somewhat concerning if it continues to be found. Urine culture is showing evidence of gram-positive cocci and constantly vancomycin therapy is being utilized as well as Rocephin until there is further data. She has developed acute renal failure and consequently very close monitoring with vancomycin therapy is indicated we'll try to limit the dosing as much as possible. Nephrology will be seeing her for her acute increase of her creatinine to 3.46. 2-D echocardiogram has been req uested and she shall be monitored. 05/02/2018 dear culture now shows evidence of enterococcus blood cultures are growing coagulase negative staph. Antibiotic therapy will now be D escalated. The Rocephin and vancomycin are discontinued. Vancomycin level currently is elevated. Once his level falls to less than 15 will then be able to initiate alternative antibiotic therapy for the treatment of the enterococcus. If blood cultures remain negative would not need further IV antibiotic therapy. 05/04/2019 the patient continues to feel very poorly with evidence of her acute renal failure the toxicity associated with that. The vancomycin level has dropped to 23 and likely will be subtherapeutic and the next day or so. At that time with initiate by therapy to complete the treatment of her enterococcal infection. Nephrology is following and continue to contemplate the need for renal replace ment therapy. The patient's blood cultures are being repeated to ensure that the foot was negative staph is not persistent, is noted he has been seen on several occasions in the past, but she does not have any indwelling catheters. 05/05/2019 the patient has had a significant worsening of her status development of respiratory failure requiring BiPAP therapy with evidence of congestive heart failure and worsening underlying cardiac function. Aortic stenosis and regurgitation symptoms considerably worse in her pulmonary hypertension is worse. With diuresis she is having less short of breath her BiPAP as tolerated 50% The vancomycin level will likely come subtherapeutic tomorrow and that will consider alteration of antibiotic therapy vancomycin is being utilized for the enterococcal urinary tract infection 05/06/2019 patient does feel slightly better with her hemodialysis it is started today. 2 half liters of fluid removed the profound shortness of breath is starting to improve. She will have dialysis again in the morning. Vancomycin level is being followed when subtherapeutic we'll need to consider if she needs further antibiotic therapy for her enterococcal urinary tract infection. She's had the multiple blood cultures with Staphylococcus ludigenesis overtime, she does not have an indwelling port. Most recent echocardiogram does not reveal evidence of endocarditis she does have significant valvular heart disease. When she is further improved may need a JERAMY. 05/08/2019 the patient is now had several cycles of hemodialysis and has had approximately 10 L of fluid removed. She still very short of breath requiring BiPAP. The patient is now had an adequate course of therapy for her enterococcal urinary tract infection vancomycin level is now trending toward subtherapeutic. She does not require further antibiotic therapy at this time. Of note the patient's creatinine was elevated before the first dose of vancomycin therapy. 05/09/2019 doing much better today off bipap and less SOB she's been doing well with the hemodialysis and ultrafiltration removing approximately 13 L of fluid he gained some appetite and mood and affect are somewhat improve She Has had ad equate treatment of her urinary tract infection and needs no further antibiotic therapy this time. 05/12/2019 the patient has had further dialysis and is slightly less fluid overloaded and has improved creatinine. She is less short of breath, appetite still poor but attempting to eat. Nephrology has been following and is doing well with renal replacement therapy, plan for change to a more permanent dialysis catheter to continue ongoing hemodialysis. The original infection has not been well treated and requires no further antibiotic therapy at this time. An admission was already having renal failure, potentially worsened by the initial vancomycin therapy for her sepsis at admission. Current Visit: Yes Status: Acute Code(s): N39.0 - URINARY TRACT INFECTION, SITE NOT SPECIFIED SNOMED Code(s): 74814189
[2019-05-13 04:42] LABS: Anisocytosis Moderate; HCT 23.8 % (34.0-46.0); HGB 8.1 gm/dL (11.4-16.0); MCH 34.2 pg (25.0-35.0); MCHC 33.9 g/dL (31.0-37.0); MCV 100.9 fL (80.0-100.0); Macrocytosis Moderate; Mean Platelet Volume 10.7; RBC 2.36 m/uL (3.80-5.40); RDW 20.4 % (11.5-15.5)
[2019-05-13 04:49] LABS: Platelet Count 65 k/uL (150-450)
[2019-05-13 04:53] LABS: Calcium 7.6 mg/dL (8.4-10.2); Potassium 5.2 mmol/L (3.5-5.1)
[2019-05-13 05:23] LABS: Lymphocytes # (M) 0.56 k/uL (1.0-4.8); Monocytes # (M) 0.49 k/uL (0-1.0); Myelocytes # (M) 0.07 k/uL (0); Myelocytes % 1 %; Neutrophils % (M) 84 %; Nucleated Red Blood Cells 5 /100 WBC (0-0); Polychromasia Present; Total Cells Counted 200
[2019-05-13 05:24] LABS: Basophilic Stippling Present
[2019-05-13] MEDS: INSULIN ASPART (NovoLOG) 100 UNIT/ML VIAL SQ SCH ×4 (06:57→22:04)
[2019-05-13 07:04] LABS: Glucose,Whole Blood 101 mg/dL (75-99)
--- NOTE | 2019-05-13 08:14 | XR ---
EXAMINATION TYPE: XR chest 1V portable DATE OF EXAM: 05/13/2019 Comparison: 05/12/2019 Clinical History: 64-year-old female shortness of breath Findings: Heart mildly enlarged. Diffuse interstitial and vascular opacities. Mild patchy bibasilar densities. No sizable effusion on the frontal view. Impression: Overall stable mild cardiomegaly interstitial opacities. Correlate for CHF with residual mild interst itial pulmonary edema.
[2019-05-13] MEDS: IPRATROPIUM-ALBUTEROL 3 ML NEB INHALATION SCH ×4 (08:52→19:18)
[2019-05-13] MEDS: ASPIRIN 81 MG PO SCH ×2 (09:15→12:55)
[2019-05-13] MEDS: FLUTICASONE 50MCG/SPRAY NASAL 16GM EA NOSTRIL SCH (09:15)
[2019-05-13] MEDS: PANTOPRAZOLE 40 MG TABLET PO SCH (09:15)
[2019-05-13] MEDS: SUCRALFATE 1 GM TAB PO SCH ×5 (09:15→22:05)
[2019-05-13] MEDS: AMIODARONE 200 MG TAB PO SCH ×3 (09:15→21:57)
--- NOTE | 2019-05-13 09:15 | P.PN ---
Subjective Progress Note Date: 05/13/19 This is a 64-year-old female was admitted to the hospital with sepsis, renal failure and intermittent atrial fibrillation with rapid ventricular response. Patient was put on IV Cardizem and also IV amiodarone. Patient has difficulty taking medications by mouth. Patient is back in sinus rhythm and maintaining sinus rhythm. We are switching to by mouth amiodarone and metoprolol and discontinue IV Cardizem and amiodarone. Otherwise patient is cardiac-mendoza stable. Patient does have BiPAP machine. She is also on dialysis. Her creatinine is in the range of 4-5 with a BUN of 80. We will continue with current medical therapy except changing to by mouth medications. This 64-year-old female with history of metastatic breast cancer, status post chemotherapy and also acute renal failure currently on dialysis. Patient had bouts of atrial fibrillation but is maintaining sinus rhythm. Patient is still unable to swallow and has been taking only ice chips. It is not clear if she is able to swallow his oral medications. Patient complains of being short of breath. Clinically does have some wheezing and rhonchi. Chest x-ray shows some residual infiltrates consistent with possible CHF. She is on dialysis and has no urinary output. Her creatinine is in the range of 4.5. Patient has pancyto penia mostly with anemia and thrombocytopenia. From Cardec standpoint we'll continue with oral beta linda and amiodarone. If necessary, we'll may have to switch to IV medication. We'll follow. Prognosis is guarded Objective - Vital Signs Vital signs: Vital Signs Temp 97.8 F 05/13/19 04:00 Pulse 73 05/13/19 09:03 Resp 16 05/13/19 07:00 BP 130/66 05/13/19 07:00 Pulse Ox 91 L 05/13/19 08:52 Intake & Output 05/12/19 05/13/19 05/13/19 18:59 06:59 18:59 Intake Total 1131.916 120 10 Output Total 3300 0 Balance -2168.084 120 10 Weight 142.1 kg 140.3 kg Intake: IV 120 120 10 0.9 NS 120 120 10 Intake, IV Titration 511.916 Amount Amiodarone 300 mg In 447.916 Dextrose 5% in Water 250 ml @ 0.5 MG/MIN 25 mls/hr IV .Q10H [facility] Rx#: [id number] Diltiazem 125 mg In 64 Sodium Chloride 0.9% 100 ml @ Per Protocol IV .Q0M [facility] Rx#:[id number] Oral 200 Hemodialysis 300 Output: Urine 0 0 Hemodialysis 3300 - Exam GENERAL EXAM: Patient is alert and oriented and doesn't appear to be in any acute distress. Patient is on BiPAP HEENT: Normocephalic. Normal reaction of pupils, equal size, normal range of extraocular motion. No erythema or exudates in the throat. NECK: No masses, no nuchal rigidity. CHEST: No chest wall deformity. LUNGS: Expiratory wheezes HEART: S1 and S2 normal with no audible mumurs or gallops. Regular rhythm, femorals equal on both sides.. ABDOMEN: No hepatosplenomegaly, normal bowel sounds, no guarding or rigidity. SKIN: No rashes CENTRAL NERVOUS SYSTEM: No focal deficits. EXTREMITIES: No cyanosis, clubbing or edema. - Labs CBC & Chem 7: 05/13/19 04:18 05/13/19 04:18 Labs: Abnormal Lab Results - Last 24 Hours (Table) 05/12/19 05/12/19 05/12/19 Range/Units 12:21 17:23 20:33 RBC (3.80-5.40) m/uL Hgb (11.4-16.0) gm/dL Hct (34.0-46.0) % MCV (80.0-100.0) fL RDW (11.5-15.5) % Plt Count (150-450) k/uL Lymphocytes # (Manual) (1.0-4.8) k/uL Myelocytes # (Manual) (0) k/uL Nucleated RBCs (0-0) /100 WBC Sodium (137-145) mmol/L Potassium (3.5-5.1) mmol/L BUN (7-17) mg/dL Creatinine (0.52-1.04) mg/dL Glucose (74-99) mg/dL POC Glucose (mg/dL) 167 H 152 H 152 H (75-99) mg/dL Calcium (8.4-10.2) mg/dL 05/13/19 05/13/19 05/13/19 Range/Units 04:18 04:18 06:53 RBC 2.36 L (3.80-5.40) m/uL Hgb 8.1 L (11.4-16.0) gm/dL Hct 23.8 L (34.0-46.0) % MCV 100.9 H (80.0-100.0) fL RDW 20.4 H (11.5-15.5) % Plt Count 65 L (150-450) k/uL Lymphocytes # (Manual) 0.56 L (1.0-4.8) k/uL Myelocytes # (Manual) 0.07 H (0) k/uL Nucleated RBCs 5 H (0-0) /100 WBC Sodium 136 L (137-145) mmol/L Potassium 5.2 H (3.5-5.1) mmol/L BUN 88 H (7-17) mg/dL Creatinine 4.24 H (0.52-1.04) mg/dL Glucose 104 H (74-99) mg/dL POC Glucose (mg/dL) 101 H (75-99) mg/dL Calcium 7.6 L (8.4-10.2) mg/dL Assessment and Plan (1) Paroxysmal atrial fibrillation Current Visit: Yes Status: Acute Code(s): I48.0 - PAROXYSMAL ATRIAL FIBRILLATION SNOMED Code(s): 414851819 (2) Acute renal failure Current Visit: Yes Status: Acute Priority: High Code(s): N17.9 - ACUTE KIDNEY FAILURE, UNSPECIFIED SNOMED Code(s): 16950263 (3) Metastatic breast carcinoma Current Visit: Yes Status: Chronic Priority: Medium Code(s): C50.919 - MALIGNANT NEOPLASM OF UNSP SITE OF UNSPECIFIED FEMALE BREAST SNOMED Code(s): 965518955 Plan: So far. Patient is maintaining sinus rhythm. We will continue current medical therapy. If necessary, may have to resume IV medications,
[2019-05-13] MEDS: METOPROLOL SUCCINATE (ER) 50 MG TAB.ER.24H PO SCH (09:16)
[2019-05-13] MEDS: SODIUM BICARBONATE TAB 650 MG TAB PO SCH ×2 (09:16→22:05)
[2019-05-13] MEDS: GABAPENTIN 300 MG CAP PO SCH ×2 (09:16→12:55)
--- NOTE | 2019-05-13 10:33 | PN ---
PROGRESS NOTE PULMONARY/CRITICAL CARE PROGRESS NOTE: DATE OF SERVICE: May 13, 2019 This is a 64-year-old female who was admitted way back on April 30. Her admission diagnosis included fever, pneumonia, and renal failure. She was initially admitted to [address] [place] [address] on the 30 of April and transferred to the ICU on the 05 of May. From the through 09 of May, because of ongoing respiratory distress and hypoxemia, she remained on BiPAP therapy. She was actually BiPAP dependent. Currently, she is on AIRVO at 45 L/minute and an estimated FiO2 of 50%. The patient does have a history of metastatic breast cancer. Currently, she is getting 0.9 at 10 mL an hour. This is her 8th hemodialysis treatment in a row. Over the next day or so, she will have a permanent hemodialysis catheter placed. Her urine apparently did show evidence of Enterococcus faecalis and blood culture showed evidence of Staph lugdunenisis. She is being treated for these infections. Currently, she is doing about the same today as she did yesterday. She would like to get up out of the bed to use the bathroom, i.e. have a bowel movement. She is a bit short of breath, but no worse than she was yesterday. She was on IV Cordarone yesterday. That has been weaned off. Her IV currently is 0.9 at 10 mL an hour. No new complaints over the evening. She denies any difficulty with her chest or chest pain. She denies any nausea, vomiting, diarrhea, or genitourinary complaints. PHYSICAL EXAMINATION: VITAL SIGNS: Current vital signs are reviewed. Temperature is 97.9, heart rate 73, respiratory rate 23, blood pressure 116/63, mean 80, saturations are 94% on the AIRVO at 45 L/minute and 50% FiO2. GENERAL: Appears in no acute distress. No conversational dyspnea or use of accessory muscles or audible wheezing. HEENT: Examination is grossly unremarkable other than the AIRVO cannula. NECK: Supple. Full range of motion. No adenopathy. Neck veins are flat. CARDIOVASCULAR: Examination reveals regular rhythm rate. Heart rate about mid 70s. S1, S2 normal. Heart sounds are distant. LUNGS: Reveal a few scattered rhonchi. Some crackles. No wheezes. Breath sounds equal bilaterally. ABDOMEN: Obese. Bowel sounds are heard. EXTREMITIES: Are intact. Minimal edema. SKIN: Without rash. NEUROLOGIC: Examination is brief but nonfocal. LABS: Labs are reviewed. White count 7, hemoglobin 8.1, hematocrit 23.8, platelet count is 65,000. Sodium 136, potassium 5.2, chloride 99, CO2 is 23 and anion gap 14. BUN and creatinine were 88 and 4.24. She does have an anion gap metabolic acidosis secondary to her renal failure. Microbiology shows evidence of Enterococcus faecalis in her urine and she has Staph lugdunenisis in blood cultures from the 4th. Chest x-ray shows evidence of some mild cardiomegaly and some mild fluid overload changes. X-ray is about the same or slightly better. Medications are reviewed. ASSESSMENT: 1. Shortness of breath, with acute hypoxemic respiratory failure secondary to sepsis, urinary tract infection, anemia, and pulmonary edema. 2. Acute kidney injury/acute tubular necrosis, with hemodialysis times x8 days in a row. 3. Gram-positive bacteremia secondary to Staphylococcus species. 4. Enterococcus faecalis urinary tract infection. 5. 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 6. History of obesity. 7. History of cerebrovascular accident. 8. Chemotherapy-induced pancytopenia. 9. Anion gap metabolic acidosis secondary to chronic kidney disease. 10.History of atrial fibrillation with RVR. PLAN: The patient is doing reasonably well. She will undergo dialysis again today. This will be the 8th dialysis treatment in a row. She will get a permanent dialysis catheter in the next day or so. Additional recommendations and suggestions are forthcoming. Prognosis is guarded. She remains on appropriate antibiotics. We will continue to follow. Medications reviewed. Problem list is reviewed. IVs are reviewed. We will continue to follow. Prognosis guarded. MMODL / IJN: [id number] /
[2019-05-13] MEDS: ONDANSETRON 4 MG/2 ML VIAL IVP PRN ×3 (11:17→23:52)
--- NOTE | 2019-05-13 11:38 | P.PN ---
Subjective Patient is seen in follow-up for acute kidney injury. She is currently hemodialysis dependent. Remains oliguric. No chest pain or shortness of br eath. Tolerating UF daily - 2.2 L removed today. Vital signs are stable. General: The patient appeared well nourished and normally developed. HEENT: Head exam is unremarkable. Neck is without jugular venous distension. LUNGS: Lungs are clear to auscultation and percussion. Breath sounds decreased. HEART: Rate and Rhythm are regular. First and second heart sounds normal. No murmurs, rubs or gallops. ABDOMEN: Abdominal exam reveals normal bowel sounds. Non-tender and non- distended. No evidence of peritonitis. EXTREMITITES: 1+ edema. Objective - Vital Signs Vital signs: Vital Signs Temp 97.9 F 05/13/19 08:00 Pulse 79 05/13/19 10:00 Resp 20 05/13/19 10:00 BP 94/61 05/13/19 10:00 Pulse Ox 92 L 05/13/19 11:10 Intake & Output 05/12/19 05/13/19 05/13/19 18:59 06:59 18:59 Intake Total 1131.916 120 40 Output Total 3300 0 Balance -2168.084 120 40 Weight 142.1 kg 140.3 kg Intake: IV 120 120 40 0.9 NS 120 120 40 Intake, IV Titration 511.916 Amount Amiodarone 300 mg In 447.916 Dextrose 5% in Water 250 ml @ 0.5 MG/MIN 25 mls/hr IV .Q10H [facility] Rx#: [id number] Diltiazem 125 mg In 64 Sodium Chloride 0.9% 100 ml @ Per Protocol IV .Q0M [facility] Rx#:[id number] Oral 200 Hemodialysis 300 Output: Urine 0 0 Hemodialysis 3300 - Labs CBC & Chem 7: 05/13/19 04:18 05/13/19 04:18 Labs: Abnormal Lab Results - Last 24 Hours (Table) 05/12/19 05/12/19 05/12/19 Range/Units 12:21 17:23 20:33 RBC (3.80-5.40) m/uL Hgb (11.4-16.0) gm/dL Hct (34.0-46.0) % MCV (80.0-100.0) fL RDW (11.5-15.5) % Plt Count (150-450) k/uL Lymphocytes # (Manual) (1.0-4.8) k/uL Myelocytes # (Manual) (0) k/uL Nucleated RBCs (0-0) /100 WBC Sodium (137-145) mmol/L Potassium (3.5-5.1) mmol/L BUN (7-17) mg/dL Creatinine (0.52-1.04) mg/dL Glucose (74-99) mg/dL POC Glucose (mg/dL) 167 H 152 H 152 H (75-99) mg/dL Calcium (8.4-10.2) mg/dL 05/13/19 05/13/19 05/13/19 Range/Units 04:18 04:18 06:53 RBC 2.36 L (3.80-5.40) m/uL Hgb 8.1 L (11.4-16.0) gm/dL Hct 23.8 L (34.0-46.0) % MCV 100.9 H (80.0-100.0) fL RDW 20.4 H (11.5-15.5) % Plt Count 65 L (150-450) k/uL Lymphocytes # (Manual) 0.56 L (1.0-4.8) k/uL Myelocytes # (Manual) 0.07 H (0) k/uL Nucleated RBCs 5 H (0-0) /100 WBC Sodium 136 L (137-145) mmol/L Potassium 5.2 H (3.5-5.1) mmol/L BUN 88 H (7-17) mg/dL Creatinine 4.24 H (0.52-1.04) mg/dL Glucose 104 H (74-99) mg/dL POC Glucose (mg/dL) 101 H (75-99) mg/dL Calcium 7.6 L (8.4-10.2) mg/dL Assessment and Plan Plan: assessment: 1. Acute kidney injury secondary to ATN secondary to sepsis and vancomycin toxicity. No evidence of hydronephrosis noted on kidney ultrasound. Baseline cr 1. Currently hemodialysis dependent. Started on dialysis 05/05/2019. Currently oliguric. Serologies negative. 2. Staph lugduneisis bacteremia. Urine culture positive for enterococcus faecalis. Maintained on IV antibiotics. 3. Breast cancer with mets. Oncology following. 4. Hyponatremia secondary to KIT. Currently hypervolemic. Improved. 5. Metabolic acidosis due to KIT and IVFs. Maintained on oral sodium bicarbonate. 6. Mild hyperkalemia secondary to acute kidney injury. 7. Pancytopenia due to chemotherapy. 8. Volume overload. Improving with daily ultrafiltration. 9. A. fib with RVR maintained on oral amiodarone. Plan: HD tomorrow - will maintain on MWF schedule. Continue to monitor renal function and urine output. Avoid nephrotoxins. P-cath to be placed tomorrow or - eliquis held. 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
[2019-05-13] MEDS: CEFEPIME 1 GM in SODIUM CHLORIDE 0.9% 50 ML IVPB SCH (12:29)
[2019-05-13 12:45] LABS: Glucose,Whole Blood 157 mg/dL (75-99)
[2019-05-13 16:49] LABS: Glucose,Whole Blood 74 mg/dL (75-99)
--- NOTE | 2019-05-13 17:42 | PN ---
PROGRESS NOTE DATE OF SERVICE: 05/13/2019 This 64-year-old woman who was admitted with multiple medical problems including acute right lower lobe pneumonia also had CHF and renal failure also. The patient also has significant hypoxia. The patient on high-flow nasal cannula. Patient also had features of possibly ARDS also. Patient being closely monitored. Hemodialysis continued almost daily. Creatinine is to 4.24 at this time. Permanent dialysis catheter is being planned by Dr. Salazar. PAST MEDICAL HISTORY: Reviewed. REVIEW OF SYSTEMS: Cardiovascular system: No angina or palpitations. RESPIRATORY: As mentioned earlier. GI: As mentioned earlier. as mentioned earlier. Nervous systems: No numbness or weakness. MEDICATIONS: Current medications are reviewed and include: 1. [place] 5 mg q.4 p.r.n. 2. DuoNeb q.4h q.i.d. and p.r.n. 3. Xanax 0.5 t.i.d. 4. Cordarone 200 mg p.o. t.i.d. 5. Aspirin 160 mg p.o. daily. 6. Cefepime 1 g IV daily. 7. Flonase. 8. Neurontin. 9. NovoLog. 10.Toprol XL. 11.Singular. 12.Zofran. 13.Protonix. 14.MiraLAX. 15.Carafate. PHYSICAL EXAM: Patient is alert, oriented x3. Pulse 66, blood pressure 112/66, respiration 26, temp is normal. Pulse ox 98% on high-flow nasal cannula. HEENT: Conjunctivae normal. Oral mucosa moist. NECK is no jugular venous distention. No carotid bruit. No lymph node enlargement. CARDIOVASCULAR: S1-S2 muffled. RESPIRATIONS: Breath sounds diminished in the bases. Bilateral scattered rhonchi and crackles. Expiratory wheezing also present. ABDOMEN: Soft, obese, nontender. No mass palpable. LEGS bilateral leg edema. NERVOUS SYSTEM: Higher functions as mentioned earlier. Moves all four limbs. Mild diffuse weakness. LYMPHATICS: No lymph nodes palpable in the neck, axilla or groin. SKIN: No ulcer, rashes or bleeding. JOINTS: No active deforming arthropathy. LABS: WBC 7, hemoglobin is 8.1, sodium 130, potassium 5.2, creatinine 4.24. ASSESSMENT: 1. Acute right lower lobe pneumonia with possible neutropenic sepsis present on admission. 2. Acute renal failure, acute tubular necrosis multifactorial with prerenal factors worsening, started on new onset hemodialysis. 3. Fluid overload with congestive heart failure acute exacerbation, acute on chronic systolic dysfunction, ejection fraction 45-50 percent with acute hypoxic respiratory failure. 4. Severe aortic stenosis, moderate to severe aortic regurgitation and mild to moderate tricuspid regurgitation. 5. Possible acute ARDS. 6. Atrial fibrillation with fast ventricular rate, paroxysmal. 7. Acute hypoxic respiratory failure on BiPAP. 8. Enterococcus faecalis, vancomycin sensitive from the urine culture. 9. Mary albicans from the sputum. 10.Pancytopenia secondary to chemotherapy. 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 12.Hyponatremia. 13.Increased AST. 14.Obesity with body mass index of 63.9. 15.Hypertension. 16.History of left-sided cerebrovascular accident. 17.History of breast surgery. 18.Remote history of nicotine dependence. 19.FULL CODE. RECOMMENDATIONS AND DISCUSSION: I recommend to continue current medications, continue with monitoring, symptomatic treatment. Continue with the bronchodilators. Continue the hemodialysis PermCath. Continue with the rest of the medications. PT/OT evaluation, possible ECF once the patient is stabilized. The patient is off high-flow oxygen. Guarded prognosis. Further recommendations to follow. MMODL / IJN: [id number] / TARIK
[2019-05-13 20:57] LABS: Glucose,Whole Blood 91 mg/dL (75-99)
--- NOTE | 2019-05-13 21:30 | P.PN ---
Subjective Progress Note Date: 05/13/19 Pleasant 63-year-old female is a complex past medical history regarding her breast carcinoma. 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 Because of increasing pain and neurological difficulties she was evaluated was treated with radiation therapy to the cervical and thoracic spine . She Developed extensive radiation dermatitis and esophagitis. She was hospitalized [facility] and with treatment of the skin and esophagitis she had marked improvement. She has had a subsequent hospitalization at the outside facility where she had a urinary tract infection. She now presents to Hospital feeling poorly with evidence significant weakness with fever 102, chills and evidence of new abnormality. Chest x-ray acute renal failure and generalized malaise. With fluid resuscitation antibiotic therapy she started to feel somewhat better. Cultures are in process with concerns to urinary tract infection as a source of the current bout of sepsis. 05/02/2017 the patient's renal failure continues but her fevers improved. With the elevated vancomycin level this is put on hold. 05/04/2019 patient continues to have increasing creatinine, and feels poorly with her acute renal failure. She is having some shakiness to her arms and legs, weakness and poor appetite. However is not having nausea or emesis. All the food does taste poorly. She's had some increased difficulties with her oral cavity possibly thrush. 05/05/2019 the patient has had a significant worsening of her status overnight. She became profoundly short of breath and required transfusions and its care unit where she's now been placed on BiPAP has been titrated down to 50% now she is feeling considerably better bacillin well. She's having no chest pains. She was seen by cardiology there is evidence of volume overload as well as worsening of her aortic stenosis and regurgitation and pulmonary hypertension. The the treatment of failure has stabilized with no further increase of her creatinine. Vancomycin level is still therapeutic but falling. 05/06/2019 patient's volume status became more problematic, more short of breath She's been seen by the nephrology and dialysis is initiated. Approximately 2- 1/2 L of fluid have been removed and she is now less short of breath but emotional upset. It is her 64th birthday. 05/08/2019 patient has had further cycles of hemodialysis and is now approximately 10 L of fluid removed by ultrafiltration, is having some improvement over status but is still having a significant acute lung injury with the significant ongoing shortness of breath and BiPAP dependence. Her mood is poor and she is anxious about her overall care. 05/09/2019 patient no longer on bipap now on high flow O2 and doing well. fells better, and is hungry 05/12/2019 patient remains on Airvo lower rate. She is less short of breath awaappetite started to improve although relates that food does taste poorly. After last dialysis she is less short of breath. There are plans for a more permanent dialysis catheter. 05/13/2019 awaits HD catheter Objective - Vital Signs Vital signs: Vital Signs Temp 97.5 F L 05/13/19 20:00 Pulse 62 05/13/19 20:00 Resp 17 05/13/19 20:00 BP 108/62 05/13/19 20:00 Pulse Ox 93 L 05/13/19 21:06 Intake & Output 05/13/19 05/13/19 05/14/19 06:59 18:59 06:59 Intake Total 120 170 70 Output Total 0 4400 0 Balance 120 -4230 70 Weight 140.3 kg Intake: IV 120 120 20 0.9 NS 120 120 20 Oral 50 50 Output: Urine 0 0 Hemodialysis 2200 Other 2200 Other: # Voids 0 - Exam 63-year-old woman presents to Hospital feeling poorly now with a significant worsening shortness of breath, BiPAP no longer used but on high richard oxygen HEENT: Anicteric conjunctiva are pink and moist nasal mucosa grossly intact without significant lesions, and the very posterior aspect of the pharynx is now some mild white coating consistent with early thrush. Neck: The neck is supple without significant lymphadenopathy or thyromegaly. Lungs: There is symmetrical air entry with coarse crackles and wheezing to the lung chiang basilar crackles are heard Heart: Regular with the 2/6 systolic murmur left sternal border Abdomen: Obese, Positive bowel sounds soft minimal tenderness is noted in the right upper quadrant without palpable masses or organomegaly. There was no guarding or rebound. Extremities: The upper extremities have excellent pulses they are symmetric, no significant petechiae or telangiectasia. No splinter hemorrhages were noted. The lower extremities have trace edema pulses 2+ and symmetric Neuro: Awake alert oriented to person place and time. There are no acute new gross focal sensory motor deficits. Skin reveals evidence of the resolution of the radiation dermatitis does have s ome residual color change but there is nothing ulcer. She is not having any further difficulties with the esophagitis either although does have a bit of dry mouth and throat. - Labs CBC & Chem 7: 05/13/19 04:18 05/13/19 04:18 Labs: Abnormal Lab Results - Last 24 Hours (Table) 05/13/19 05/13/19 05/13/19 Range/Units 04:18 04:18 06:53 RBC 2.36 L (3.80-5.40) m/uL Hgb 8.1 L (11.4-16.0) gm/dL Hct 23.8 L (34.0-46.0) % MCV 100.9 H (80.0-100.0) fL RDW 20.4 H (11.5-15.5) % Plt Count 65 L (150-450) k/uL Lymphocytes # (Manual) 0.56 L (1.0-4.8) k/uL Myelocytes # (Manual) 0.07 H (0) k/uL Nucleated RBCs 5 H (0-0) /100 WBC Sodium 136 L (137-145) mmol/L Potassium 5.2 H (3.5-5.1) mmol/L BUN 88 H (7-17) mg/dL Creatinine 4.24 H (0.52-1.04) mg/dL Glucose 104 H (74-99) mg/dL POC Glucose (mg/dL) 101 H (75-99) mg/dL Calcium 7.6 L (8.4-10.2) mg/dL 05/13/19 05/13/19 Range/Units 12:30 16:39 RBC (3.80-5.40) m/uL Hgb (11.4-16.0) gm/dL Hct (34.0-46.0) % MCV (80.0-100.0) fL RDW (11.5-15.5) % Plt Count (150-450) k/uL Lymphocytes # (Manual) (1.0-4.8) k/uL Myelocytes # (Manual) (0) k/uL Nucleated RBCs (0-0) /100 WBC Sodium (137-145) mmol/L Potassium (3.5-5.1) mmol/L BUN (7-17) mg/dL Creatinine (0.52-1.04) mg/dL Glucose (74-99) mg/dL POC Glucose (mg/dL) 157 H 74 L (75-99) mg/dL Calcium (8.4-10.2) mg/dL Laboratory Results WBC 7.0 k/uL (3.8-10.6) 05/13/19 04:18 RBC 2.36 m/uL (3.80-5.40) L 05/13/19 04:18 Hgb 8.1 gm/dL (11.4-16.0) L 05/13/19 04:18 Hct 23.8 % (34.0-46.0) L 05/13/19 04:18 MCV 100.9 fL (80.0-100.0) H 05/13/19 04:18 MCH 34.2 pg (25.0-35.0) 05/13/19 04:18 MCHC 33.9 g/dL (31.0-37.0) 05/13/19 04:18 RDW 20.4 % (11.5-15.5) H 05/13/19 04:18 Plt Count 65 k/uL (150-450) L 05/13/19 04:18 Neutrophils % 93 % 05/09/19 05:26 Neutrophils % (Manual) 84 % 05/13/19 04:18 Band Neutrophils % 3 % 05/12/19 04:29 Lymphocytes % 2 % 05/09/19 05:26 Lymphocytes % (Manual) 8 % 05/13/19 04:18 Monocytes % 3 % 05/09/19 05:26 Monocytes % (Manual) 7 % 05/13/19 04:18 Eosinophils % 1 % 05/09/19 05:26 Eosinophils % (Manual) 2 % 05/02/19 06:57 Basophils % 0 % 05/09/19 05:26 Myelocytes % 1 % 05/13/19 04:18 Neutrophils # 6.7 k/uL (1.3-7.7) 05/09/19 05:26 Neutrophils # (Manual) 5.88 k/uL (1.3-7.7) 05/13/19 04:18 Lymphocytes # 0.2 k/uL (1.0-4.8) L 05/09/19 05:26 Lymphocytes # (Manual) 0.56 k/uL (1.0-4.8) L 05/13/19 04:18 Monocytes # 0.2 k/uL (0-1.0) 05/09/19 05:26 Monocytes # (Manual) 0.49 k/uL (0-1.0) 05/13/19 04:18 Eosinophils # 0.1 k/uL (0-0.7) 05/09/19 05:26 Eosinophils # (Manual) 0.05 k/uL (0-0.7) 05/02/19 06:57 Basophils # 0.0 k/uL (0-0.2) 05/09/19 05:26 Myelocytes # (Manual) 0.07 k/uL (0) H 05/13/19 04:18 Nucleated RBCs 5 /100 WBC (0-0) H 05/13/19 04:18 Manual Slide Review Performed 05/13/19 04:18 Hypersegmented Neuts Present 05/12/19 04:29 Large Platelets Present 05/12/19 04:29 Polychromasia Present 05/13/19 04:18 Hypochromasia Slight 05/11/19 04:56 Poikilocytosis (manual Present 05/02/19 06:57 Basophilic Stippling Present 05/13/19 04:18 Anisocytosis Moderate 05/13/19 04:18 Anisocytosis (manual) Present 05/01/19 07:16 Macrocytosis Moderate 05/13/19 04:18 Rouleaux Present 05/02/19 06:57 PT 10.7 sec (9.0-12.0) 05/01/19 12:37 INR 1.0 (<1.2) 05/01/19 12:37 APTT 26.3 sec (22.0-30.0) 05/01/19 12:37 Sample Site rrad 05/11/19 10:09 ABG pH 7.50 (7.35-7.45) H 05/11/19 10:09 ABG pCO2 30 mmHg (35-45) L 05/11/19 10:09 ABG pO2 82 mmHg (83-108) L 05/11/19 10:09 ABG HCO3 23 mmol/L (21-25) 05/11/19 10:09 ABG Total CO2 24 mmol/L (19-24) 05/11/19 10:09 ABG O2 Saturation 96.7 % (94-97) 05/11/19 10:09 ABG Base Excess -0.2 mmol/L 05/11/19 10:09 Arian Test Yes 05/11/19 10:09 FiO2 50 % 05/11/19 10:09 Sodium 136 mmol/L (137-145) L 05/13/19 04:18 Potassium 5.2 mmol/L (3.5-5.1) H 05/13/19 04:18 Chloride 99 mmol/L (98-107) 05/13/19 04:18 Carbon Dioxide 23 mmol/L (22-30) 05/13/19 04:18 Anion Gap 14 mmol/L 05/13/19 04:18 BUN 88 mg/dL (7-17) H 05/13/19 04:18 Creatinine 4.24 mg/dL (0.52-1.04) H 05/13/19 04:18 Est GFR (CKD-EPI)AfAm 12 (>60 ml/min/1.73 sqM) 05/13/19 04:18 Est GFR (CKD-EPI)NonAf 10 (>60 ml/min/1.73 sqM) 05/13/19 04:18 Glucose 104 mg/dL (74-99) H 05/13/19 04:18 POC Glucose (mg/dL) 91 mg/dL (75-99) 05/13/19 20:46 POC Glu Repair Miller Lily Ovalles 05/13/19 20:46 Plasma Lactic Acid Jon 0.9 mmol/L (0.7-2.0) 05/05/19 08:15 Calcium 7.6 mg/dL (8.4-10.2) L 05/13/19 04:18 Ionized Calcium Peter 3.9 mg/dL (4.5-5.3) L 05/09/19 05:26 Phosphorus 7.4 mg/dL (2.5-4.5) H 05/11/19 04:56 Magnesium 2.6 mg/dL (1.6-2.3) H 05/11/19 04:56 Iron 246 ug/dL (50-170) H 05/10/19 04:38 TIBC 273 ug/dL (228-460) 05/10/19 04:38 Iron Saturation 90.11 (12.00-45.00) H 05/10/19 04:38 Total Bilirubin 1.1 mg/dL (0.2-1.3) 05/12/19 04:34 AST 58 U/L (14-36) H 05/12/19 04:34 ALT 26 U/L (9-52) 05/12/19 04:34 Alkaline Phosphatase 108 U/L (38-126) 05/12/19 04:34 NT-Pro-B Natriuret Pep 12216 pg/mL 05/05/19 00:23 Total Protein 6.3 g/dL (6.3-8.2) 05/12/19 04:34 Albumin 3.1 g/dL (3.5-5.0) L 05/12/19 04:34 Triglycerides 173 mg/dL (<150) H 05/09/19 05:26 Urine Color Dark Brown 04/30/19 13:00 Urine Appearance Turbid (Clear) H 04/30/19 13:00 Urine pH 5.0 (5.0-8.0) 04/30/19 13:00 Ur Specific [place] 1.016 (1.001-1.035) 04/30/19 13:00 Urine Protein 2+ (Negative) H 04/30/19 13:00 Urine Glucose (UA) Negative (Negative) 04/30/19 13:00 Urine Ketones Negative (Negative) 04/30/19 13:00 Urine Blood Large (Negative) H 04/30/19 13:00 Urine Nitrite Negative (Negative) 04/30/19 13:00 Urine Bilirubin Negative (Negative) 04/30/19 13:00 Urine Urobilinogen 4.0 mg/dL (<2.0) 04/30/19 13:00 Ur Leukocyte Esterase Large (Negative) H 04/30/19 13:00 Urine RBC >182 /hpf (0-5) H 04/30/19 13:00 Urine WBC 40 /hpf (0-5) H 04/30/19 13:00 Urine WBC Clumps Occasional /hpf (None) H 04/30/19 13:00 Ur Squamous Epith Cells 13 /hpf (0-4) H 04/30/19 13:00 Urine Bacteria Moderate /hpf (None) H 04/30/19 13:00 Urine Mucus Occasional /hpf (None) H 04/30/19 13:00 Random Vancomycin 16.4 ug/mL 05/06/19 04:06 Serum ANNE-MARIE Interpret SEE NOTE 05/03/19 23:18 Urine Immunofixation SEE NOTE 05/03/19 14:30 LOUANN Screen NEGATIVE (NEGATIVE) 05/03/19 23:18 c-ANCA <1:20 Titer (<1:20) 05/03/19 23:18 p-ANCA <1:20 Titer (<1:20) 05/03/19 23:18 Double Strand DNA Ab NEGATIVE (NEGATIVE) 05/03/19 23:18 Anti-DNA Ab Interp <1.0 IU/mL 05/03/19 23:18 Complement C3 117.0 mg/dL (80.0-207.0) 05/03/19 23:18 Complement C4 16.4 mg/dL (10.0-53.0) 05/03/19 23:18 Tot Complement (CH50) 92 U/mL (42 - 95) 05/06/19 04:06 Hepatitis A IgM Ab Non-Reactive (Non-Reactive) 05/03/19 23:18 Hep Bs Antigen Non-Reactive (Non-Reactive) 05/06/19 14:00 Hep Bs Antibody Non-Reactive (Non-Reactive) 05/05/19 14:00 Hep Bs Antibody, Quant 3.5 mIU/mL 05/05/19 14:00 Hep B Core Total Ab Non-Reactive (Non-Reactive) 05/06/19 14:00 Hep B Core IgM Ab Non-Reactive (Non-Reactive) 05/03/19 23:18 Hep C IgG Ab Non-Reactive (Non-Reactive) 05/03/19 23:18 Influenza Type A RNA Not Detected (Not Detectd) 04/30/19 13:04 Influenza Type B (PCR) Not Detected (Not Detectd) 04/30/19 13:04 Microbiology 05/05/19 04:39 Blood Blood Culture - Final No Growth after 144 hours 05/05/19 04:12 Blood Blood Culture - Final No Growth after 144 hours 05/03/19 23:18 Blood Blood Culture - Final No Growth after 144 hours 04/30/19 11:43 Blood Blood Culture Gram Stain - Final 04/30/19 11:43 Blood Blood Culture - Final Staphylococcus lugdunenisis 05/02/19 09:21 Sputum Gram Stain - Final 05/02/19 09:21 Sputum Sputum Culture - Final Mary albicans 04/30/19 13:00 Urine,Voided Urine Culture - Final Enterococcus faecalis 04/30/19 11:43 Blood Blood Culture - Final Assessment and Plan (1) Acute renal failure Current Visit: Yes Status: Acute Priority: High Code(s): N17.9 - ACUTE KIDNEY FAILURE, UNSPECIFIED SNOMED Code(s): 45028088 (2) Gram-positive cocci bacteremia Current Visit: No Status: Acute Code(s): R78.81 - BACTEREMIA SNOMED Code(s): 766033918956 (3) Metastatic breast carcinoma Current Visit: Yes Status: Chronic Priority: Medium Code(s): C50.919 - MALIGNANT NEOPLASM OF UNSP SITE OF UNSPECIFIED FEMALE BREAST SNOMED Code(s): 919862260 (4) Urinary tract infection Narrative/Plan: 63-year-old woman who has a history of the metastaticBreast carcinoma with evidence of significant metastasis to the skeleton as well as liver metastasis presents to Hospital feeling poorly with another bout of fever chills malaise occurring after her recent treatment with chemotherapy. Been seen by her onco logy team and chemotherapy is now on hold. He does not have severe neutropenia and is being monitored. There is evidence of urinary tract infection is likely etiology her current sepsis and laboratories: Positive blood culture with gram- positive cocci. She's had several prior blood cultures with gram-positive cocci that has been staphylococcus ludegensis, which is a coagulase-negative staph and since the patient does not have an indwelling catheter has not been thought to be a significant pathogen. Somewhat concerning if it continues to be found. Urine culture is showing evidence of gram-positive cocci and constantly vancomycin therapy is being utilized as well as Rocephin until there is further data. She has developed acute renal failure and consequently very close monitoring with vancomycin therapy is indicated we'll try to limit the dosing as much as possible. Nephrology will be seeing her for her acute increase of her creatinine to 3.46. 2-D echocardiogram has been requested and she shall be monitored. 05/02/2018 dear culture now shows evidence of enterococcus blood cultures are growing coagulase negative staph. Antibiotic therapy will now be D escalated. The Rocephin and vancomycin are discontinued. Vancomycin level currently is elevated. Once his level falls to less than 15 will then be able to initiate alternative antibiotic therapy for the treatment of the enterococcus. If blood cultures remain negative would not need further IV antibiotic therapy. 05/04/2019 the patient continues to feel very poorly with evidence of her acute renal failure the toxicity associated with that. The vancomycin level has dropped to 23 and likely will be subtherapeutic and the next day or so. At that time with initiate by therapy to complete the treatment of her enterococcal infection. Nephrology is following and continue to contemplate the need for renal replacement therapy. The patient's blood cultures are being repeated to ensure that the foot was negative staph is not persistent, is noted he has been seen on several occasions in the past, but she does not have any indwelling catheters. 05/05/2019 the patient has had a significant worsening of her status development of respiratory failure requiring BiPAP therapy with evidence of congestive heart failure and worsening underlying cardiac function. Aortic stenosis and regurgitation symptoms considerably worse in her pulmonary hypertension is worse. With diuresis she is having less short of breath her BiPAP as tolerated 50% The vancomycin level will likely come subtherapeutic tomorrow and that will consider alteration of antibiotic therapy vancomycin is being utilized for the enterococcal urinary tract infection 05/06/2019 patient does feel slightly better with her hemodialysis it is started today. 2 half liters of fluid removed the profound shortness of breath is starting to improve. She will have dialysis again in the morning. Vancomycin level is being followed when subtherapeutic we'll need to consider if she needs further antibiotic therapy for her enterococcal urinary tract infection. She's had the multiple blood cultures with Staphylococcus ludigenesis overtime, she does not have an indwelling port. Most recent echocardiogram does not reveal evidence of endocarditis she does have significant valvular heart disease. When she is further improved may need a JERAMY. 05/08/2019 the patient is now had several cycles of hemodialysis and has had approximately 10 L of fluid removed. She still very short of breath requiring BiPAP. The patient is now had an adequate course of therapy for her enterococcal urinary tract infection vancomycin level is now trending toward subtherapeutic. She does not require further antibiotic therapy at this time. Of note the patient's creatinine was elevated before the first dose of vancomycin therapy. 05/09/2019 doing much better today off bipap and less SOB she's been doing well with the hemodialysis and ultrafiltration removing approximately 13 L of fluid he gained some appetite and mood and affect are somewhat improve She Has had adequate treatment of her urinary tract infection and needs no further antibiotic therapy this time. 05/12/2019 the patient has had further dialysis and is slightly less fluid overloaded and has improved creatinine. She is less short of breath, appetite still poor but attempting to eat. Nephrology has been following and is doing well with renal replacement therapy, plan for change to a more permanent d ialysis catheter to continue ongoing hemodialysis. The original infection has not been well treated and requires no further antibiotic therapy at this time. An admission was already having renal failure, potentially worsened by the initial vancomycin therapy for her sepsis at admission. 05/13/2019 stable, for HD catheter placement antibiotics have completed and is improving. Less SOB Current Visit: Yes Status: Acute Code(s): N39.0 - URINARY TRACT INFECTION, SITE NOT SPECIFIED SNOMED Code(s): 86177355
[2019-05-13] MEDS: MONTELUKAST 10 MG TAB PO SCH (21:57)
[2019-05-13] MEDS: SENNOSIDES-DOCUSATE SODIUM 1 EACH TAB PO SCH (22:04)
[2019-05-13] MEDS: ATORVASTATIN 40 MG TAB PO SCH (22:04)
[2019-05-14 07:02] LABS: Glucose,Whole Blood 110 mg/dL (75-99)
[2019-05-14] MEDS: IPRATROPIUM-ALBUTEROL 3 ML NEB INHALATION SCH ×4 (07:19→19:44)
[2019-05-14] MEDS: INSULIN ASPART (NovoLOG) 100 UNIT/ML VIAL SQ SCH ×4 (07:32→21:37)
[2019-05-14] MEDS: ONDANSETRON 4 MG/2 ML VIAL IVP PRN ×3 (08:09→20:48)
[2019-05-14] MEDS: AMIODARONE 200 MG TAB PO SCH ×3 (08:32→21:38)
[2019-05-14] MEDS: SUCRALFATE 1 GM TAB PO SCH ×4 (08:33→21:38)
[2019-05-14] MEDS: PANTOPRAZOLE 40 MG TABLET PO SCH (08:33)
[2019-05-14] MEDS: ASPIRIN 81 MG PO SCH (08:33)
[2019-05-14] MEDS: FLUTICASONE 50MCG/SPRAY NASAL 16GM EA NOSTRIL SCH (08:34)
[2019-05-14] MEDS: GABAPENTIN 300 MG CAP PO SCH (08:34)
[2019-05-14] MEDS: METOPROLOL SUCCINATE (ER) 50 MG TAB.ER.24H PO SCH ×2 (08:34→15:27)
[2019-05-14] MEDS: SODIUM BICARBONATE TAB 650 MG TAB PO SCH ×2 (08:35→21:38)
[2019-05-14] MEDS: methylPREDNISolone SOD SUCCI 40 MG/ML 1 ML VIAL IV SCH ×2 (11:39→17:52)
[2019-05-14] MEDS: CEFEPIME 1 GM in SODIUM CHLORIDE 0.9% 50 ML IVPB SCH (11:39)
[2019-05-14 11:49] LABS: Glucose,Whole Blood 104 mg/dL (75-99)
--- NOTE | 2019-05-14 12:04 | PN ---
PROGRESS NOTE DATE OF SERVICE: May 14, 2019 This is a 64-year-old female who was admitted back on April 30. Her admission diagnosis included fever, pneumonia, and acute renal failure. She was initially admitted to [address] [place] [address] on the 30 of April and transferred to the ICU on the 05 of May. From the to 09 of May, because of ongoing respiratory distress and profound hypoxemia, she was BiPAP dependent. The patient is currently on AIRVO. The settings include 39 L/minute and a FiO2 estimated to be 47%. This is a small improvement from yesterday. She has received hemodialysis with net fluid loss over the last 9 days on a daily basis. Her IV is saline at 10 mL an hour. She is going today for permanent hemodialysis catheter. We will add some Perforomist and Pulmicort to her regimen. The Perforomist is 20 mcg and the Pulmicort 1 mg. We are also going to give her Solu-Medrol 40 mg q.6 and we will see if we cannot get her down to high-flow oxygen once she has a hemodialysis catheter placed. Her urine apparently did show evidence of Enterococcus faecalis and blood culture showed evidence of Staph lugdunenisis. The patient is being treated for these 2 infections. Yesterday she had a good bowel movement. Other than that, her condition has been stable to slightly improved. PHYSICAL EXAMINATION: VITAL SIGNS: Current vital signs are reviewed. Temperature 97.9, heart rate is 70, respiratory rate is 19, blood pressure 101/60, mean 73, saturations 95% to 98%. GENERAL: Appears in no acute distress. HEENT: Examination is grossly unremarkable. Mucous membranes are moist. No oral lesions. NECK: Supple. Full range of motion. No adenopathy, thyromegaly or neck vein distention. CARDIOVASCULAR: Examination reveals regular rhythm and rate. S1, S2 normal. No S3, S4, or murmur. LUNGS: Reveal coarse bilateral rhonchi. There are some expiratory wheezes. A few crackles are appreciated. Breath sounds are equal bilaterally. ABDOMEN: Soft. Bowel sounds are heard. EXTREMITIES: Are intact. No cyanosis, clubbing, or edema. SKIN: Without rash. NEUROLOGIC: Examination is brief but nonfocal. Microbiology includes Mary in the sputum from 05/02; Enterococcus faecalis in the urine from 04/30 and Staph lugdunenisis on Tessa 4th. LAB DATA: Lab data is reviewed. White count 7, hemoglobin 8.1, hematocrit 23.8, platelet count 84,000. Sodium 136, potassium 5.2, chloride 99, CO2 is 23. Anion gap is 14. BUN and creatinine were 88 and 4.24. The rest of the labs look pretty good. MEDICATIONS: Her medications are reviewed. No chest x-ray was done today. ASSESSMENT: 1. Hypoxemic respiratory failure secondary to sepsis, urinary tract infection, anemia, and pulmonary edema. 2. Acute kidney injury/acute tubular necrosis with hemodialysis x9 days in a row. 3. Gram-positive bacteremia secondary to Staph species. 4. Enterococcus faecalis urinary tract infection. 5. 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 6. History of obesity. 7. History of cerebrovascular accident. 8. Chemotherapy-induced pancytopenia. 9. History of anion gap metabolic acidosis secondary to chronic kidney disease. 10.History of atrial fibrillation with RVR. PLAN: The patient is undergoing dialysis today. Today is #9 of dialysis. The patient will have a permanent hemodialysis catheter placed today. We will attempt once the catheter is placed to wean the patient down to high-flow O2. The patient will have Perforomist 20 mcg added to Pulmicort 1 mg and be nebulized twice a day. We also add Solu-Medrol 40 mg q.6 to the regimen. The rest of the labs and medications are reviewed. Prognosis is guarded. We will continue to follow closely. No additional recommendations are made at this time. MMODL / IJN: [id number] /
--- NOTE | 2019-05-14 13:21 | P.PN ---
Subjective Patient is seen in follow-up for acute kidney injury. She is currently hemodialysis dependent. Remains oliguric. No chest pain or shortness of br eath. Tolerating UF 2-3 L daily. Edema has improved. Vital signs are stable. General: The patient appeared well nourished and normally developed. HEENT: Head exam is unremarkable. Neck is without jugular venous distension. LUNGS: Lungs are clear to auscultation and percussion. Breath sounds decreased. HEART: Rate and Rhythm are regular. First and second heart sounds normal. No murmurs, rubs or gallops. ABDOMEN: Abdominal exam reveals normal bowel sounds. Non-tender and non- distended. No evidence of peritonitis. EXTREMITITES: Trace edema. Objective - Vital Signs Vital signs: Vital Signs Temp 96.8 F L 05/14/19 12:00 Pulse 78 05/14/19 12:00 Resp 13 05/14/19 12:00 BP 111/71 05/14/19 12:00 Pulse Ox 96 05/14/19 12:00 Intake & Output 05/13/19 05/14/19 05/14/19 18:59 06:59 18:59 Intake Total 170 160 60 Output Total 4400 0 3000 Balance -4230 160 -2940 Weight 140 kg 140 kg Intake: IV 120 110 60 0.9 NS 120 110 60 Oral 50 50 Output: Urine 0 0 Hemodialysis 2200 3000 Other 2200 Other: # Voids 0 0 - Labs CBC & Chem 7: 05/13/19 04:18 05/13/19 04:18 Labs: Abnormal Lab Results - Last 24 Hours (Table) 05/13/19 05/14/19 05/14/19 Range/Units 16:39 06:50 11:37 POC Glucose (mg/dL) 74 L 110 H 104 H (75-99) mg/dL Assessment and Plan Plan: assessment: 1. Acute kidney injury secondary to ATN secondary to sepsis and vancomycin toxicity. No evidence of hydronephrosis noted on kidney ultrasound. Baseline cr 1. Currently hemodialysis dependent. Started on dialysis 05/05/2019. Currently oliguric. Serologies negative. 2. Staph lugduneisis bacteremia. Urine culture positive for enterococcus faecalis. Maintained on IV antibiotics. 3. Breast cancer with mets. Oncology following. 4. Hyponatremia secondary to KIT. Currently hypervolemic. Improved. 5. Metabolic acidosis due to KIT and IVFs. Maintained on oral sodium bicarbonate. 6. Mild hyperkalemia secondary to acute kidney injury. 7. Pancytopenia due to chemotherapy. 8. Volume overload. Improving with daily ultrafiltration. 9. A. fib with RVR maintained on oral amiodarone. Plan: Next hemodialysis tomorrow. Will maintain on Sunday schedule while in the hospital. Continue to monitor renal function and urine output. Avoid nephrotoxins. P-cath to be placed today. international accounting manager to help set up outpatient hemodialysis.
[2019-05-14] MEDS ORDERED: fentaNYL (PF) 50 MCG/ML 2 ML AMP ONE (13:57)
[2019-05-14] MEDS ORDERED: LIDOCAINE 1% INJ 10MG/ML (20 ML MDV) ONE ×2 (13:58→14:03)
[2019-05-14] MEDS ORDERED: LIDOCAINE 1% INJ 10MG/ML (20 ML MDV) SQ ONE (14:00)
[2019-05-14] MEDS ORDERED: HEPARIN SODIUM 1,000 UN/ML (10ML VL) ONE (14:01)
[2019-05-14] MEDS ORDERED: MIDAZOLAM (PF) 2 MG/2 ML VIAL IVP ONE (14:01)
[2019-05-14] MEDS ORDERED: fentaNYL (PF) 50 MCG/ML 2 ML AMP IVP ONE (14:01)
[2019-05-14] MEDS ORDERED: SODIUM CHLORIDE 0.9% 500 ML 500 ML IV ONE (14:02)
--- NOTE | 2019-05-14 14:58 | P.PN ---
Subjective Progress Note Date: 05/14/19 This is a 64-year-old female was admitted to the hospital with sepsis, renal failure and intermittent atrial fibrillation with rapid ventricular response. Patient was put on IV Cardizem and also IV amiodarone. Patient has difficulty taking medications by mouth. Patient is back in sinus rhythm and maintaining sinus rhythm. We are switching to by mouth amiodarone and metoprolol and discontinue IV Cardizem and amiodarone. Otherwise patient is cardiac-mendoza stable. Patient does have BiPAP machine. She is also on dialysis. Her creatinine is in the range of 4-5 with a BUN of 80. We will continue with current medical therapy except changing to by mouth medications. This 64-year-old female with history of metastatic breast cancer, status post chemotherapy and also acute renal failure currently on dialysis. Patient had bouts of atrial fibrillation but is maintaining sinus rhythm. Patient is still unable to swallow and has been taking only ice chips. It is not clear if she is able to swallow his oral medications. Patient complains of being short of breath. Clinically does have some wheezing and rhonchi. Chest x-ray shows some residual infiltrates consistent with possible CHF. She is on dialysis and has no urinary output. Her creatinine is in the range of 4.5. Patient has pancyto penia mostly with anemia and thrombocytopenia. From Cardec standpoint we'll continue with oral beta linda and amiodarone. If necessary, we'll may have to switch to IV medication. We'll follow. Prognosis is guarded. 05/14/2019: This patient is cardiac-mendoza stable. Maintaining sinus rhythm. A ble to take oral medication including beta linda and also amiodarone. No arrhythmias are detected. Rest of the management as for nephrology. We'll follow Objective - Vital Signs Vital signs: Vital Signs Temp 96.8 F L 05/14/19 12:00 Pulse 76 05/14/19 13:00 Resp 12 05/14/19 13:00 BP 112/63 05/14/19 13:00 Pulse Ox 97 05/14/19 13:00 Intake & Output 05/13/19 05/14/19 05/14/19 18:59 06:59 18:59 Intake Total 170 160 70 Output Total 4400 0 3000 Balance -4230 160 -2930 Weight 140 kg 140 kg Intake: IV 120 110 70 0.9 NS 120 110 70 Oral 50 50 Output: Urine 0 0 Hemodialysis 2200 3000 Other 2200 Other: # Voids 0 0 - Exam GENERAL EXAM: Patient is alert and oriented and doesn't appear to be in any acute distress. Patient is on BiPAP HEENT: Normocephalic. Normal reaction of pupils, equal size, normal range of extraocular motion. No erythema or exudates in the throat. NECK: No masses, no nuchal rigidity. CHEST: No chest wall deformity. LUNGS: Expiratory wheezes HEART: S1 and S2 normal with no audible mumurs or gallops. Regular rhythm, femorals equal on both sides.. ABDOMEN: No hepatosplenomegaly, normal bowel sounds, no guarding or rigidity. SKIN: No rashes CENTRAL NERVOUS SYSTEM: No focal deficits. EXTREMITIES: No cyanosis, clubbing or edema. - Labs CBC & Chem 7: 05/13/19 04:18 05/13/19 04:18 Labs: Abnormal Lab Results - Last 24 Hours (Table) 05/13/19 05/14/19 05/14/19 Range/Units 16:39 06:50 11:37 POC Glucose (mg/dL) 74 L 110 H 104 H (75-99) mg/dL Assessment and Plan (1) Paroxysmal atrial fibrillation Current Visit: Yes Status: Acute Code(s): I48.0 - PAROXYSMAL ATRIAL FIBRILLATION SNOMED Code(s): 242569097 (2) Acute renal failure Current Visit: Yes Status: Acute Priority: High Code(s): N17.9 - ACUTE KIDNEY FAILURE, UNSPECIFIED SNOMED Code(s): 88270191 (3) Metastatic breast carcinoma Current Visit: Yes Status: Chronic Priority: Medium Code(s): C50.919 - MALIGNANT NEOPLASM OF UNSP SITE OF UNSPECIFIED FEMALE BREAST SNOMED Code(s): 504599754 Plan: Patient is maintaining sinus rhythm. We'll continue current medical therapy
--- NOTE | 2019-05-14 15:24 | XR ---
EXAMINATION TYPE: XR chest 1V portable DATE OF EXAM: 05/14/2019 CLINICAL HISTORY: Dialysis catheter placement. TECHNIQUE: Single AP portable upright view of the chest is obtained. COMPARISON: Chest x-ray from one day earlier. FINDINGS: New right internal jugular dual-lumen dialysis catheter with tips near cavoatrial junction . Reticular interstitial changes bilaterally. Diminished inspiration on current study. Cardiac silhou ette size is stable and mildly enlarged. Hazy right suprahilar and bibasilar opacities. Osseous struc tures are intact. IMPRESSION: New right internal jugular dual-lumen dialysis catheter with tip near cavoatrial junction or pneumothorax is noted. Other findings stable.
--- NOTE | 2019-05-14 15:42 | P.PN ---
Subjective Progress Note Date: 05/14/19 Principal diagnosis: Fever, congestive heart failure, acute renal failure, metastatic breast cancer In follow-up today patient is on BiPAP but, only because she is going down for procedure. Patient states she thinks she is feeling a little bit better. She has no acute complaints. Objective - Vital Signs Vital signs: Vital Signs Temp 96.8 F L 05/14/19 12:00 Pulse 81 05/14/19 15:21 Resp 36 H 05/14/19 15:00 BP 117/68 05/14/19 15:00 Pulse Ox 97 05/14/19 15:25 Intake & Output 05/13/19 05/14/19 05/14/19 18:59 06:59 18:59 Intake Total 170 160 70 Output Total 4400 0 3000 Balance -4230 160 -2930 Weight 140 kg 140 kg Intake: IV 120 110 70 0.9 NS 120 110 70 Oral 50 50 Output: Urine 0 0 Hemodialysis 2200 3000 Other 2200 Other: # Voids 0 0 - Exam Well-developed, overweight female laying in bed, no acute distress, alert and oriented to self, place, time and situation. Pt has good color today. Respirations are shallow, slightly to But unlabored, skin is warm and dry to the touch, radial pulses palpable 2+, abdomen was soft, lower extremities trace edema. - Labs CBC & Chem 7: 05/13/19 04:18 05/13/19 04:18 Labs: Abnormal Lab Results - Last 24 Hours (Table) 05/13/19 05/14/19 05/14/19 Range/Units 16:39 06:50 11:37 POC Glucose (mg/dL) 74 L 110 H 104 H (75-99) mg/dL Assessment and Plan (1) Acute respiratory failure Narrative/Plan: Patient has been weaned off of BiPAP in the intensive care unit, continues to be monitored closely by the Critical Care team. Current Visit: Yes Status: Acute Priority: High Code(s): J96.00 - ACUTE RESPIRATORY FAILURE, UNSP W HYPOXIA OR HYPERCAPNIA SNOMED Code(s): 85691635 (2) Metastatic breast carcinoma Narrative/Plan: Patient recently had change in her hormonal therapy from oral to IM. She received loading dose of Faslodex 03/14 through 04/16. Her last dose of Xgeva was on April 16. Patient will be due for xgeva and Faslodex in about 1 week. Patient's oral Ibrance is on hold. This is a 21 day regimen every 28 days. Patient has had difficulties tolerating Ibrance treatment. Dose can be adjusted or, patient could be considered for a different therapy. Decisions will be made after her acute condition has been treated. Patient does have hormone receptor positive breast cancer that has numerous lines of therapy that pt has never even seen yet. Current Visit: Yes Status: Chronic Priority: Medium Code(s): C50.919 - MALIGNANT NEOPLASM OF UNSP SITE OF UNSPECIFIED FEMALE BREAST SNOMED Code(s): 716973551 (3) Fever Current Visit: Yes Status: Resolved Priority: High Code(s): R50.9 - FEVER, UNSPECIFIED SNOMED Code(s): 876455679 (4) Acute renal failure Narrative/Plan: Patient is being taken for dialysis catheter placement today. Lab monitoring in the a.m. Nephrology is following closely. Current Visit: Yes Status: Acute Priority: High Code(s): N17.9 - ACUTE KIDNEY FAILURE, UNSPECIFIED SNOMED Code(s): 76855214
[2019-05-14 16:37] LABS: Glucose,Whole Blood 185 mg/dL (75-99)
--- NOTE | 2019-05-14 16:53 | IR ---
Fluoroscopy HISTORY: Dialysis catheter placement 0.7 minutes fluoroscopy time supplied to the referring clinician. 164 intraoperative C-arm images do cument the procedure. See dictated report from vascular surgery.
[2019-05-14] MEDS: BUDESONIDE 0.5 MG/2 ML NEBU INHALATION SCH (19:44)
[2019-05-14] MEDS: FORMOTEROL FUMARATE 20 MCG/2 ML NEBU INHALATION SCH (19:44)
[2019-05-14] MEDS ORDERED: BUDESONIDE 0.5 MG/2 ML NEBU INHALATION SCH (20:00)
--- NOTE | 2019-05-14 21:01 | P.PN ---
Subjective Progress Note Date: 05/14/19 Pleasant 63-year-old female is a complex past medical history regarding her breast carcinoma. 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 Because of increasing pain and neurological difficulties she was evaluated was treated with radiation therapy to the cervical and thoracic spine . She Developed extensive radiation dermatitis and esophagitis. She was hospitalized [facility] and with treatment of the skin and esophagitis she had marked improvement. She has had a subsequent hospitalization at the outside facility where she had a urinary tract infection. She now presents to Hospital feeling poorly with evidence significant weakness with fever 102, chills and evidence of new abnormality. Chest x-ray acute renal failure and generalized malaise. With fluid resuscitation antibiotic therapy she started to feel somewhat better. Cultures are in process with concerns to urinary tract infection as a source of the current bout of sepsis. 05/02/2017 the patient's renal failure continues but her fevers improved. With the elevated vancomycin level this is put on hold. 05/04/2019 patient continues to have increasing creatinine, and feels poorly with her acute renal failure. She is having some shakiness to her arms and legs, weakness and poor appetite. However is not having nausea or emesis. All the food does taste poorly. She's had some increased difficulties with her oral cavity possibly thrush. 05/05/2019 the patient has had a significant worsening of her status overnight. She became profoundly short of breath and required transfusions and its care unit where she's now been placed on BiPAP has been titrated down to 50% now she is feeling considerably better bacillin well. She's having no chest pains. She was seen by cardiology there is evidence of volume overload as well as worsening of her aortic stenosis and regurgitation and pulmonary hypertension. The the treatment of failure has stabilized with no further increase of her creatinine. Vancomycin level is still therapeutic but falling. 05/06/2019 patient's volume status became more problematic, more short of breath She's been seen by the nephrology and dialysis is initiated. Approximately 2- 1/2 L of fluid have been removed and she is now less short of breath but emotional upset. It is her 64th birthday. 05/08/2019 patient has had further cycles of hemodialysis and is now approximately 10 L of fluid removed by ultrafiltration, is having some improvement over status but is still having a significant acute lung injury with the significant ongoing shortness of breath and BiPAP dependence. Her mood is poor and she is anxious about her overall care. 05/09/2019 patient no longer on bipap now on high flow O2 and doing well. fells better, and is hungry 05/12/2019 patient remains on Airvo lower rate. She is less short of breath awaappetite started to improve although relates that food does taste poorly. After last dialysis she is less short of breath. There are plans for a more permanent dialysis catheter. 05/13/2019 awaits HD catheter 05/14/2019 has had her hemodialysis catheter placed. She's feeling 70% better today. The best she has felt in quite some time. She's left short of breath and has some appetite. Objective - Vital Signs Vital signs: Vital Signs Temp 98.4 F 05/14/19 16:00 Pulse 75 05/14/19 20:08 Resp 22 05/14/19 19:00 BP 116/55 05/14/19 19:00 Pulse Ox 97 05/14/19 19:40 Intake & Output 05/14/19 05/14/19 05/15/19 06:59 18:59 06:59 Intake Total 160 370 10 Output Total 0 3000 Balance 160 -2630 10 Weight 140 kg 140 kg Intake: IV 110 120 10 0.9 NS 110 120 10 Oral 50 250 Output: Urine 0 0 Hemodialysis 3000 Other: # Voids 0 0 - Exam 63-year-old woman presents to Hospital feeling poorly now with a significant worsening shortness of breath, BiPAP no longer used but on high richard oxygen HEENT: Anicteric conjunctiva are pink and moist nasal mucosa grossly intact without significant lesions, and the very posterior aspect of the pharynx is now some mild white coating consistent with early thrush. Neck: The neck is supple without significant lymphadenopathy or thyromegaly. Lungs: There is symmetrical air entry with coarse crackles and wheezing to the lung chiang basilar crackles are heard Heart: Regular with the 2/6 systolic murmur left sternal border Abdomen: Obese, Positive bowel sounds soft minimal tenderness is noted in the right upper quadrant without palpable masses or organomegaly. There was no guarding or rebound. Extremities: The upper extremities have excellent pulses they are symmetric, no significant petechiae or telangiectasia. No splinter hemorrhages were noted. The lower extremities have trace edema pulses 2+ and symmetric Neuro: Awake alert oriented to person place and time. There are no acute new gross focal sensory motor deficits. Skin reveals evidence of the resolution of the radiation dermatitis does have some residual color change but there is nothing ulcer. She is not having any further difficulties with the esophagitis either although does have a bit of dry mouth and throat. The right femoral dialysis catheter is removed and now has the right internal jugular catheter in place. Neither site is tender. - Labs CBC & Chem 7: 05/13/19 04:18 05/13/19 04:18 Labs: Abnormal Lab Results - Last 24 Hours (Table) 05/14/19 05/14/19 05/14/19 Range/Units 06:50 11:37 16:25 POC Glucose (mg/dL) 110 H 104 H 185 H (75-99) mg/dL Laboratory Results WBC 7.0 k/uL (3.8-10.6) 05/13/19 04:18 RBC 2.36 m/uL (3.80-5.40) L 05/13/19 04:18 Hgb 8.1 gm/dL (11.4-16.0) L 05/13/19 04:18 Hct 23.8 % (34.0-46.0) L 05/13/19 04:18 MCV 100.9 fL (80.0-100.0) H 05/13/19 04:18 MCH 34.2 pg (25.0-35.0) 05/13/19 04:18 MCHC 33.9 g/dL (31.0-37.0) 05/13/19 04:18 RDW 20.4 % (11.5-15.5) H 05/13/19 04:18 Plt Count 65 k/uL (150-450) L 05/13/19 04:18 Neutrophils % 93 % 05/09/19 05:26 Neutrophils % (Manual) 84 % 05/13/19 04:18 Band Neutrophils % 3 % 05/12/19 04:29 Lymphocytes % 2 % 05/09/19 05:26 Lymphocytes % (Manual) 8 % 05/13/19 04:18 Monocytes % 3 % 05/09/19 05:26 Monocytes % (Manual) 7 % 05/13/19 04:18 Eosinophils % 1 % 05/09/19 05:26 Eosinophils % (Manual) 2 % 05/02/19 06:57 Basophils % 0 % 05/09/19 05:26 Myelocytes % 1 % 05/13/19 04:18 Neutrophils # 6.7 k/uL (1.3-7.7) 05/09/19 05:26 Neutrophils # (Manual) 5.88 k/uL (1.3-7.7) 05/13/19 04:18 Lymphocytes # 0.2 k/uL (1.0-4.8) L 05/09/19 05:26 Lymphocytes # (Manual) 0.56 k/uL (1.0-4.8) L 05/13/19 04:18 Monocytes # 0.2 k/uL (0-1.0) 05/09/19 05:26 Monocytes # (Manual) 0.49 k/uL (0-1.0) 05/13/19 04:18 Eosinophils # 0.1 k/uL (0-0.7) 05/09/19 05:26 Eosinophils # (Manual) 0.05 k/uL (0-0.7) 05/02/19 06:57 Basophils # 0.0 k/uL (0-0.2) 05/09/19 05:26 Myelocytes # (Manual) 0.07 k/uL (0) H 05/13/19 04:18 Nucleated RBCs 5 /100 WBC (0-0) H 05/13/19 04:18 Manual Slide Review Performed 05/13/19 04:18 Hypersegmented Neuts Present 05/12/19 04:29 Large Platelets Present 05/12/19 04:29 Polychromasia Present 05/13/19 04:18 Hypochromasia Slight 05/11/19 04:56 Poikilocytosis (manual Present 05/02/19 06:57 Basophilic Stippling Present 05/13/19 04:18 Anisocytosis Moderate 05/13/19 04:18 Anisocytosis (manual) Present 05/01/19 07:16 Macrocytosis Moderate 05/13/19 04:18 Rouleaux Present 05/02/19 06:57 PT 10.7 sec (9.0-12.0) 05/01/19 12:37 INR 1.0 (<1.2) 05/01/19 12:37 APTT 26.3 sec (22.0-30.0) 05/01/19 12:37 Sample Site rrad 05/11/19 10:09 ABG pH 7.50 (7.35-7.45) H 05/11/19 10:09 ABG pCO2 30 mmHg (35-45) L 05/11/19 10:09 ABG pO2 82 mmHg (83-108) L 05/11/19 10:09 ABG HCO3 23 mmol/L (21-25) 05/11/19 10:09 ABG Total CO2 24 mmol/L (19-24) 05/11/19 10:09 ABG O2 Saturation 96.7 % (94-97) 05/11/19 10:09 ABG Base Excess -0.2 mmol/L 05/11/19 10:09 Arian Test Yes 05/11/19 10:09 FiO2 50 % 05/11/19 10:09 Sodium 136 mmol/L (137-145) L 05/13/19 04:18 Potassium 5.2 mmol/L (3.5-5.1) H 05/13/19 04:18 Chloride 99 mmol/L (98-107) 05/13/19 04:18 Carbon Dioxide 23 mmol/L (22-30) 05/13/19 04:18 Anion Gap 14 mmol/L 05/13/19 04:18 BUN 88 mg/dL (7-17) H 05/13/19 04:18 Creatinine 4.24 mg/dL (0.52-1.04) H 05/13/19 04:18 Est GFR (CKD-EPI)AfAm 12 (>60 ml/min/1.73 sqM) 05/13/19 04:18 Est GFR (CKD-EPI)NonAf 10 (>60 ml/min/1.73 sqM) 05/13/19 04:18 Glucose 104 mg/dL (74-99) H 05/13/19 04:18 POC Glucose (mg/dL) 185 mg/dL (75-99) H 05/14/19 16:25 POC Glu [place] Blocker ID 05/14/19 16:25 Plasma Lactic Acid Jon 0.9 mmol/L (0.7-2.0) 05/05/19 08:15 Calcium 7.6 mg/dL (8.4-10.2) L 05/13/19 04:18 Ionized Calcium Peter 3.9 mg/dL (4.5-5.3) L 05/09/19 05:26 Phosphorus 7.4 mg/dL (2.5-4.5) H 05/11/19 04:56 Magnesium 2.6 mg/dL (1.6-2.3) H 05/11/19 04:56 Iron 246 ug/dL (50-170) H 05/10/19 04:38 TIBC 273 ug/dL (228-460) 05/10/19 04:38 Iron Saturation 90.11 (12.00-45.00) H 05/10/19 04:38 Total Bilirubin 1.1 mg/dL (0.2-1.3) 05/12/19 04:34 AST 58 U/L (14-36) H 05/12/19 04:34 ALT 26 U/L (9-52) 05/12/19 04:34 Alkaline Phosphatase 108 U/L (38-126) 05/12/19 04:34 NT-Pro-B Natriuret Pep 45044 pg/mL 05/05/19 00:23 Total Protein 6.3 g/dL (6.3-8.2) 05/12/19 04:34 Albumin 3.1 g/dL (3.5-5.0) L 05/12/19 04:34 Triglycerides 173 mg/dL (<150) H 05/09/19 05:26 Urine Color Dark Brown 04/30/19 13:00 Urine Appearance Turbid (Clear) H 04/30/19 13:00 Urine pH 5.0 (5.0-8.0) 04/30/19 13:00 Ur Specific [place] 1.016 (1.001-1.035) 04/30/19 13:00 Urine Protein 2+ (Negative) H 04/30/19 13:00 Urine Glucose (UA) Negative (Negative) 04/30/19 13:00 Urine Ketones Negative (Negative) 04/30/19 13:00 Urine Blood Large (Negative) H 04/30/19 13:00 Urine Nitrite Negative (Negative) 04/30/19 13:00 Urine Bilirubin Negative (Negative) 04/30/19 13:00 Urine Urobilinogen 4.0 mg/dL (<2.0) 04/30/19 13:00 Ur Leukocyte Esterase Large (Negative) H 04/30/19 13:00 Urine RBC >182 /hpf (0-5) H 04/30/19 13:00 Urine WBC 40 /hpf (0-5) H 04/30/19 13:00 Urine WBC Clumps Occasional /hpf (None) H 04/30/19 13:00 Ur Squamous Epith Cells 13 /hpf (0-4) H 04/30/19 13:00 Urine Bacteria Moderate /hpf (None) H 04/30/19 13:00 Urine Mucus Occasional /hpf (None) H 04/30/19 13:00 Random Vancomycin 16.4 ug/mL 05/06/19 04:06 Serum ANNE-MARIE Interpret SEE NOTE 05/03/19 23:18 Urine Immunofixation SEE NOTE 05/03/19 14:30 LOUANN Screen NEGATIVE (NEGATIVE) 05/03/19 23:18 c-ANCA <1:20 Titer (<1:20) 05/03/19 23:18 p-ANCA <1:20 Titer (<1:20) 05/03/19 23:18 Double Strand DNA Ab NEGATIVE (NEGATIVE) 05/03/19 23:18 Anti-DNA Ab Interp <1.0 IU/mL 05/03/19 23:18 Complement C3 117.0 mg/dL (80.0-207.0) 05/03/19 23:18 Complement C4 16.4 mg/dL (10.0-53.0) 05/03/19 23:18 Tot Complement (CH50) 92 U/mL (42 - 95) 05/06/19 04:06 Hepatitis A IgM Ab Non-Reactive (Non-Reactive) 05/03/19 23:18 Hep Bs Antigen Non-Reactive (Non-Reactive) 05/06/19 14:00 Hep Bs Antibody Non-Reactive (Non-Reactive) 05/05/19 14:00 Hep Bs Antibody, Quant 3.5 mIU/mL 05/05/19 14:00 Hep B Core Total Ab Non-Reactive (Non-Reactive) 05/06/19 14:00 Hep B Core IgM Ab Non-Reactive (Non-Reactive) 05/03/19 23:18 Hep C IgG Ab Non-Reactive (Non-Reactive) 05/03/19 23:18 Influenza Type A RNA Not Detected (Not Detectd) 04/30/19 13:04 Influenza Type B (PCR) Not Detected (Not Detectd) 04/30/19 13:04 Microbiology 05/05/19 04:39 Blood Blood Culture - Final No Growth after 144 hours 05/05/19 04:12 Blood Blood Culture - Final No Growth after 144 hours 05/03/19 23:18 Blood Blood Culture - Final No Growth after 144 hours 04/30/19 11:43 Blood Blood Culture Gram Stain - Final 04/30/19 11:43 Blood Blood Culture - Final Staphylococcus lugdunenisis 05/02/19 09:21 Sputum Gram Stain - Final 05/02/19 09:21 Sputum Sputum Culture - Final Mary albicans 04/30/19 13:00 Urine,Voided Urine Culture - Final Enterococcus faecalis 04/30/19 11:43 Blood Blood Culture - Final Assessment and Plan (1) Acute renal failure Current Visit: Yes Status: Acute Priority: High Code(s): N17.9 - ACUTE K IDNEY FAILURE, UNSPECIFIED SNOMED Code(s): 80077980 (2) Gram-positive cocci bacteremia Current Visit: No Status: Acute Code(s): R78.81 - BACTEREMIA SNOMED Code(s ): 066155040119 (3) Metastatic breast carcinoma Current Visit: Yes Status: Chronic Priority: Medium Code(s): C50.919 - MALIGNANT NEOPLASM OF UNSP SITE OF UNSPECIFIED FEMALE BREAST SNOMED Code(s): 494635455 (4) Urinary tract infection Narrative/Plan: 63-year-old woman who has a history of the metastaticBreast carcinoma with evidence of significant metastasis to the skeleton as well as liver metastasis presents to Hospital feeling poorly with another bout of fever chills malaise occurring after her recent treatment with chemotherapy. Been seen by her oncology team and chemotherapy is now on hold. He does not have severe neutropenia and is being monitored. There is evidence of urinary tract infection is likely etiology her current sepsis and laboratories: Positive blood culture with gram-positive cocci. She's had several prior blood cultures with gram-positive cocci that has been staphylococcus ludegensis, which is a coagulase-negative staph and since the patient does not have an indwelling catheter has not been thought to be a significant pathogen. Somewhat concerning if it continues to be found. Urine culture is showing evidence of gram-positive cocci and constantly vancomycin therapy is being utilized as well as Rocephin until there is further data. She has developed acute renal failure and consequently very close monitoring with vancomycin therapy is indicated we'll try to limit the dosing as much as possible. Nephrology will be seeing her for her acute increase of her creatinine to 3.46. 2-D echocardiogram has been requested and she shall be monitored. 05/02/2018 dear culture now shows evidence of enterococcus blood cultures are growing coagulase negative staph. Antibiotic therapy will now be D escalated. The Rocephin and vancomycin are discontinued. Vancomycin level currently is elevated. Once his level falls to less than 15 will then be able to initiate alternative antibiotic therapy for the treatment of the enterococcus. If blood cultures remain negative would not need further IV antibiotic therapy. 05/04/2019 the patient continues to feel very poorly with evidence of her acute renal failure the toxicity associated with that. The vancomycin level has dropped to 23 and likely will be subtherapeutic and the next day or so. At that time with initiate by therapy to complete the treatment of her enterococcal infection. Nephrology is following and continue to contemplate the need for renal replacement therapy. The patient's blood cultures are being repeated to ensure that the foot was negative staph is not persistent, is noted he has been seen on several occasions in the past, but she does not have any indwelling catheters. 05/05/2019 the patient has had a significant worsening of her status development of respiratory failure requiring BiPAP therapy with evidence of congestive heart failure and worsening underlying cardiac function. Aortic stenosis and regurgitation symptoms considerably worse in her pulmonary hypertension is worse. With diuresis she is having less short of breath her BiPAP as tolerated 50% The vancomycin level will likely come subtherapeutic tomorrow and that will consider alteration of antibiotic therapy vancomycin is being utilized for the enterococcal urinary tract infection 05/06/2019 patient does feel slightly better with her hemodialysis it is started today. 2 half liters of fluid removed the profound shortness of breath is starting to improve. She will have dialysis again in the morning. Vancomycin level is being followed when subtherapeutic we'll need to consider if she needs further antibiotic therapy for her enterococcal urinary tract infection. She's had the multiple blood cultures with Staphylococcus ludigenesis overtime, she does not have an indwelling port. Most recent echocardiogram does not reveal evidence of endocarditis she does have significant valvular heart diseas e. When she is further improved may need a JERAMY. 05/08/2019 the patient is now had several cycles of hemodialysis and has had approximately 10 L of fluid removed. She still very short of breath requiring BiPAP. The patient is now had an adequate course of therapy for her enterococcal urinary tract infection vancomycin level is now trending toward subtherapeutic. She does not require further antibiotic therapy at this time. Of note the patient's creatinine was elevated before the first dose of vancomycin therapy. 05/09/2019 doing much better today off bipap and less SOB she's been doing well with the hemodialysis and ultrafiltration removing approximately 13 L of fluid he gained some appetite and mood and affect are somewhat improve She Has had adequate treatment of her urinary tract infection and needs no further antibiotic therapy this time. 05/12/2019 the patient has had further dialysis and is slightly less fluid overloaded and has improved creatinine. She is less short of breath, appetite still poor but attempting to eat. Nephrology has been following and is doing well with renal replacement therapy, plan for change to a more permanent dialysis catheter to continue ongoing hemodialysis. The original infection has not been well treated and requires no further antibiotic therapy at this time. An admission was already having renal failure, potentially worsened by the initial vancomycin therapy for her sepsis at admission. 05/13/2019 stable, for HD catheter placement antibiotics have completed and is improving. Less SOB 05/14/2019 patient is feeling better. Said that she's felt in some time. Doing well with the new hemodialysis catheter. Antibiotic therapy is complete and is being monitored. Current Visit: Yes Status: Acute Code(s): N39.0 - URINARY TRACT INFECTION, SITE NOT SPECIFIED SNOMED Code(s): 93191933
--- NOTE | 2019-05-14 21:07 | PN ---
PROGRESS NOTE DATE OF SERVICE: 05/14/2019 This 64 -year-old woman who was admitted with multiple medical problems including acute pneumonia also had CHF. The patient also had renal failure. Patient is on hemodialysis on a daily basis. The patient also had features of shortness of breath, hypoxia, acute hypoxic respiratory failure, ARDS, also. The patient had a PermCath placed today. At this time, the patient was having intermittent atrial fibrillation. Patient had multiple medical conditions, still in ICU. Closely monitored. Patient on high-flow oxygen at this time. PAST MEDICAL HISTORY: Reviewed. REVIEW OF SYSTEMS: CARDIOVASCULAR SYSTEM: As mentioned earlier. RESPIRATORY: As mentioned earlier. GI no nausea or vomiting. : As mentioned earlier. CENTRAL NERVOUS SYSTEM: No numbness or weakness. CURRENT MEDICATIONS: 1. Whiteside 5 mg q.4 p.r.n. 2. DuoNeb q.i.d. and p.r.n. 3. Xanax 0.5 t.i.d. 4. Cordarone 200 mg p.o. t.i.d. 5. Aspirin 160 mg daily. 6. Lipitor 40 mg q.h.s. 7. Pulmicort 1 mg b.i.d. 8. Cefepime 1 g IV daily. 9. Flonase. 10.Perforomist 20 mcg b.i.d. 11.Neurontin 300 mg daily. 12.NovoLog scale. 13.Solu-Medrol 40 IV. 14.Lopressor. 15.Singulair. 16.Narcan. 17.Zofran. 18.Protonix. 19.Senokot-S. 20.Carafate. PHYSICAL EXAM: Patient is alert, oriented x 3. Pulse 75, blood pressure 114/60, respiration 18, temperature 98.4, pulse ox 99% on high-flow nasal cannula. HEENT: Conjunctivae normal. Oral mucosa moist. NECK is no jugular venous distention. No carotid bruit. No lymph node enlargement. Cardiovascular system: S1, S2 muffled. No S3, no S4. RESPIRATORY: Breath sounds diminished in the bases. Bilateral scattered rhonchi and crackles. Expiratory wheezing. ABDOMEN: Soft, obese. LEGS: Minimal legs edema. NERVOUS SYSTEM: Diffusely weak. LABS: Accu-Cheks 104 and 185. Hemoglobin 8.1, creatinine is 4.24. ASSESSMENT: 1. Acute right lower lobe pneumonia with possible neutropenic sepsis, present on admission. 2. Acute renal failure acute tubular necrosis multifactorial with prerenal factors, worsening started on new onset hemodialysis. 3. Fluid overload, congestive heart failure acute exacerbation with acute on chronic systolic dysfunction, ejection fraction 45 to 50% with acute hypoxic respiratory failure. 4. Severe aortic stenosis, moderate to severe aortic regurgitation and mild to moderate tricuspid regurgitation. 5. Possible acute ARDS. 6. Atrial fibrillation with fast ventricular rate, paroxysmal. 7. Acute hypoxic respiratory failure, was on BiPAP. 8. Enterococcus faecalis vancomycin sensitive from the urine culture. 9. Mary albicans from the sputum. 10.Pancytopenia, secondary to chemotherapy. 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 12.Hyponatremia. 13.Increased AST. 14.Obesity with body mass index of 62.9. 15.Hypertension. 16.History of left-sided cerebrovascular accident. 17.History of breast surgery. 18.Remote history of nicotine dependence. 19.FULL CODE. RECOMMENDATIONS AND DISCUSSION: I recommend to continue current medications, symptomatic treatment. Otherwise, at this time, continue the bronchodilators, steroids. Continue the hemodialysis. PT/OT evaluation, possible ECF rehab once the patient is stabilized. Guarded prognosis. Further recommendations to follow. MMODL / IJN: [id number] /
[2019-05-14 21:26] LABS: Glucose,Whole Blood 183 mg/dL (75-99)
[2019-05-14] MEDS: ATORVASTATIN 40 MG TAB PO SCH (21:37)
[2019-05-14] MEDS: SENNOSIDES-DOCUSATE SODIUM 1 EACH TAB PO SCH (21:39)
[2019-05-14] MEDS: MONTELUKAST 10 MG TAB PO SCH (21:39)
--- NOTE | 2019-05-14 22:28 | OP ---
OPERATIVE REPORT PREOP DIAGNOSIS: Acute on chronic renal failure. PROCEDURE PERFORMED: Placement of 23 cm dialysis catheter, right jugular approach. DESCRIPTION OF PROCEDURE: The patient was brought to the prosthetic lab technician and under local and IV sedation. Sedation time is 20 minutes. Ultrasound-guided micropuncture into the right jugular vein. Micropuncture guidewire was passed and 4-Icelandic dilator advanced on top of the guidewire. After that, we created a tunnel. Through the tunnel, we brought 23 cm dialysis catheter. After that, the guide wire was passed which was parked in the inferior vena cava. The dilator was advanced and 23 cm dialysis catheter and sheath on top of the guidewire. Sheath removed. The tip of the catheter is junction of superior vena cava. flushed with heparin saline and hep-locked and secured with 3-0 Vicryl and nylon. Dressing applied. Patient tolerated the procedure well. MMODL / IJN: [id number] /
[2019-05-15] MEDS: methylPREDNISolone SOD SUCCI 40 MG/ML 1 ML VIAL IV SCH ×5 (00:16→23:48)
[2019-05-15 06:15] LABS: Anisocytosis Moderate; HCT 24.3 % (34.0-46.0); MCH 34.2 pg (25.0-35.0); MCV 103.6 fL (80.0-100.0); Macrocytosis Moderate; Mean Platelet Volume 11.2; RBC 2.35 m/uL (3.80-5.40); RDW 21.2 % (11.5-15.5)
[2019-05-15 06:18] LABS: Albumin 3.2 g/dL (3.5-5.0); Calcium 6.7 mg/dL (8.4-10.2); Potassium 5.3 mmol/L (3.5-5.1); Total Protein 6.4 g/dL (6.3-8.2)
[2019-05-15 06:19] LABS: Platelet Count 59 k/uL (150-450)
[2019-05-15 06:54] LABS: Band Neutrophils % 4 %; Lymphocytes # (M) 0.08 k/uL (1.0-4.8); Metamyelocytes # (M) 0.08 k/uL (0); Metamyelocytes % 1 %; Monocytes # (M) 0.24 k/uL (0-1.0); Neutrophils % (M) 91 %; Nucleated Red Blood Cells 3 /100 WBC (0-0); Total Cells Counted 200
[2019-05-15 06:55] LABS: WBC 7.9 k/uL (3.8-10.6)
[2019-05-15 06:56] LABS: Anisocytosis (M) Present; Polychromasia Present; Toxic Granulation Present
[2019-05-15] MEDS: INSULIN ASPART (NovoLOG) 100 UNIT/ML VIAL SQ SCH ×4 (07:08→20:58)
[2019-05-15 07:13] LABS: Glucose,Whole Blood 154 mg/dL (75-99)
[2019-05-15] MEDS: IPRATROPIUM-ALBUTEROL 3 ML NEB INHALATION SCH ×4 (08:00→19:44)
[2019-05-15] MEDS: FORMOTEROL FUMARATE 20 MCG/2 ML NEBU INHALATION SCH ×2 (08:01→19:44)
--- NOTE | 2019-05-15 08:05 | XR ---
EXAMINATION TYPE: XR chest 1V portable DATE OF EXAM: 05/15/2019 Comparison: 05/14/2019 Clinical History: 64-year-old female with poor respiratory reserve, O2 dependent Findings: Right-sided double-lumen hemodialysis catheter with tips in the right atrium. Heart mildly enlarged. Perihilar and diffuse interstitial and vascular densities persist with mild patchy lower lung densiti es. Impression: Correlate for continued CHF with interstitial pulmonary edema.
[2019-05-15] MEDS: BUDESONIDE 1 MG/2 ML NEBU INHALATION SCH ×2 (08:09→19:44)
[2019-05-15] MEDS: BUDESONIDE 0.5 MG/2 ML NEBU INHALATION SCH (08:13)
[2019-05-15] MEDS: ONDANSETRON 4 MG/2 ML VIAL IVP PRN ×3 (08:32→22:14)
[2019-05-15] MEDS: ASPIRIN 81 MG PO SCH (09:36)
[2019-05-15] MEDS: FLUTICASONE 50MCG/SPRAY NASAL 16GM EA NOSTRIL SCH (09:36)
[2019-05-15] MEDS: GABAPENTIN 300 MG CAP PO SCH (09:36)
[2019-05-15] MEDS: SUCRALFATE 1 GM TAB PO SCH ×4 (09:36→21:15)
[2019-05-15] MEDS: PANTOPRAZOLE 40 MG TABLET PO SCH (09:36)
[2019-05-15] MEDS: SODIUM BICARBONATE TAB 650 MG TAB PO SCH ×2 (09:37→21:16)
[2019-05-15] MEDS: AMIODARONE 200 MG TAB PO SCH ×3 (09:43→21:14)
[2019-05-15] MEDS: METOPROLOL SUCCINATE (ER) 50 MG TAB.ER.24H PO SCH (09:43)
--- NOTE | 2019-05-15 09:45 | P.PN ---
Subjective Progress Note Date: 05/15/19 This is a 64-year-old female was admitted to the hospital with sepsis, renal failure and intermittent atrial fibrillation with rapid ventricular response. Patient was put on IV Cardizem and also IV amiodarone. Patient has difficulty taking medications by mouth. Patient is back in sinus rhythm and maintaining sinus rhythm. We are switching to by mouth amiodarone and metoprolol and discontinue IV Cardizem and amiodarone. Otherwise patient is cardiac-mendoza stable. Patient does have BiPAP machine. She is also on dialysis. Her creatinine is in the range of 4-5 with a BUN of 80. We will continue with current medical therapy except changing to by mouth medications. This 64-year-old female with history of metastatic breast cancer, status post chemotherapy and also acute renal failure currently on dialysis. Patient had bouts of atrial fibrillation but is maintaining sinus rhythm. Patient is still unable to swallow and has been taking only ice chips. It is not clear if she is able to swallow his oral medications. Patient complains of being short of breath. Clinically does have some wheezing and rhonchi. Chest x-ray shows some residual infiltrates consistent with possible CHF. She is on dialysis and has no urinary output. Her creatinine is in the range of 4.5. Patient has pancyto penia mostly with anemia and thrombocytopenia. From Cardec standpoint we'll continue with oral beta linda and amiodarone. If necessary, we'll may have to switch to IV medication. We'll follow. Prognosis is guarded. 05/14/2019: This patient is cardiac-mendoza stable. Maintaining sinus rhythm. A ble to take oral medication including beta linda and also amiodarone. No arrhythmias are detected. Rest of the management as for nephrology. We'll follow. 05/15/2019: The patient is relatively stable. Maintaining sinus rhythm seemed to be able to take medication by mouth. No dialysis today. Chest x-ray shows some chronic congestive heart failure changes. Patient activity to be increased. From Cardec standpoint, patient is stable. Her creatinine is still in the range of 4-5 Objective - Vital Signs Vital signs: Vital Signs Temp 97.6 F 05/15/19 08:00 Pulse 70 05/15/19 08:30 Resp 16 05/15/19 08:00 BP 101/60 05/15/19 08:00 Pulse Ox 93 L 05/15/19 08:00 Intake & Output 05/14/19 05/15/19 05/15/19 18:59 06:59 18:59 Intake Total 370 120 20 Output Total 3000 Balance -2630 120 20 Weight 140 kg 136.1 kg Intake: IV 120 120 20 0.9 NS 120 120 20 Oral 250 Output: Urine 0 Hemodialysis 3000 Other: # Voids 0 # Bowel Movements 2 - Exam GENERAL EXAM: Patient is alert and oriented and doesn't appear to be in any acute distress. Patient is on BiPAP HEENT: Normocephalic. Normal reaction of pupils, equal size, normal range of extraocular motion. No erythema or exudates in the throat. NECK: No masses, no nuchal rigidity. CHEST: No chest wall deformity. LUNGS: Expiratory wheezes HEART: S1 and S2 normal with no audible mumurs or gallops. Regular rhythm, femorals equal on both sides.. ABDOMEN: No hepatosplenomegaly, normal bowel sounds, no guarding or rigidity. SKIN: No rashes CENTRAL NERVOUS SYSTEM: No focal deficits. EXTREMITIES: No cyanosis, clubbing or edema. - Labs CBC & Chem 7: 05/15/19 04:41 05/15/19 04:41 Labs: Abnormal Lab Results - Last 24 Hours (Table) 05/14/19 05/14/19 05/14/19 Range/Units 11:37 16:25 21:15 RBC (3.80-5.40) m/uL Hgb (11.4-16.0) gm/dL Hct (34.0-46.0) % MCV (80.0-100.0) fL RDW (11.5-15.5) % Plt Count (150-450) k/uL Lymphocytes # (Manual) (1.0-4.8) k/uL Metamyelocytes # (Man) (0) k/uL Nucleated RBCs (0-0) /100 WBC Sodium (137-145) mmol/L Potassium (3.5-5.1) mmol/L Chloride (98-107) mmol/L Carbon Dioxide (22-30) mmol/L BUN (7-17) mg/dL Creatinine (0.52-1.04) mg/dL Glucose (74-99) mg/dL POC Glucose (mg/dL) 104 H 185 H 183 H (75-99) mg/dL Calcium (8.4-10.2) mg/dL Total Bilirubin (0.2-1.3) mg/dL AST (14-36) U/L ALT (9-52) U/L Albumin (3.5-5.0) g/dL 05/15/19 05/15/19 05/15/19 Range/Units 04:41 04:41 07:02 RBC 2.35 L (3.80-5.40) m/uL Hgb 8.0 L (11.4-16.0) gm/dL Hct 24.3 L (34.0-46.0) % MCV 103.6 H (80.0-100.0) fL RDW 21.2 H (11.5-15.5) % Plt Count 59 L (150-450) k/uL Lymphocytes # (Manual) 0.08 L (1.0-4.8) k/uL Metamyelocytes # (Man) 0.08 H (0) k/uL Nucleated RBCs 3 H (0-0) /100 WBC Sodium 134 L (137-145) mmol/L Potassium 5.3 H (3.5-5.1) mmol/L Chloride 94 L (98-107) mmol/L Carbon Dioxide 20 L (22-30) mmol/L BUN 77 H (7-17) mg/dL Creatinine 4.59 H (0.52-1.04) mg/dL Glucose 155 H (74-99) mg/dL POC Glucose (mg/dL) 154 H (75-99) mg/dL Calcium 6.7 L (8.4-10.2) mg/dL Total Bilirubin 2.0 H (0.2-1.3) mg/dL AST 73 H (14-36) U/L ALT 68 H (9-52) U/L Albumin 3.2 L (3.5-5.0) g/dL Assessment and Plan (1) Paroxysmal atrial fibrillation Current Visit: Yes Status: Acute Code(s): I48.0 - PAROXYSMAL ATRIAL FIBRILLATION SNOMED Code(s): 961111501 (2) Acute renal failure Current Visit: Yes Status: Acute Priority: High Code(s): N17.9 - ACUTE KIDNEY FAILURE, UNSPECIFIED SNOMED Code(s): 65581311 (3) Metastatic breast carcinoma Current Visit: Yes Status: Chronic Priority: Medium Code(s): C50.919 - MALIGNANT NEOPLASM OF UNSP SITE OF UNSPECIFIED FEMALE BREAST SNOMED Code(s): 355067217 Plan: Continue current medical therapy. Follow nephrology's recommendations. Increase activity as tolerated
--- NOTE | 2019-05-15 11:44 | PN ---
PROGRESS NOTE DATE OF SERVICE: 05/15/2019 This is a 64-year-old female who was admitted back on April 30. Her admission diagnosis included fever, pneumonia and acute renal failure. She was initially admitted to [address] [place] [address] and on April 30 was transferred to the ICU. On the 05 05 through the , she was essentially BiPAP dependent for hypoxemic respiratory failure. Currently, she is doing much better. She remains on the AIRVO at 30 L/minute and 34% FiO2. She is getting 0.9 at 10 mL an hour. No hemodialysis today. Hemodialysis catheter was placed May 14. She will be a Sunday, Sunday, Sunday dialysis patient. Yesterday we added some Perforomist and Pulmicort to her regimen. We also added some Solu-Medrol to her regimen. She appears to be clinically more stable today. I did tell the nurse that it was important to wean her off the AIRVO and get her on to some normal oxygen by nasal cannula or high-flow cannula. Anyway, she is doing much better. She has history of cultures from the urine showing evidence of Enterococcus faecalis and blood culture showing Staphylococcus lugdunensis. She is being treated for both infection. Other than that, she is doing reasonably well. She denies any particular complaints. She does feel weak. She would like to get up out of bed and into the chair. PHYSICAL EXAMINATION: Current vital signs are reviewed. Her temperature is 97.6, heart rate 70, respiratory rate 16, blood pressure 111/63 mean 79, saturations are in the mid 90s. Appears in no acute distress. HEENT examination is grossly unremarkable. Mucous membranes are moist. The nasal cannula from the AIRVO device are noted. NECK: Supple. Full range of motion. No adenopathy. Neck veins are flat. CARDIOVASCULAR examination reveals regular rhythm rate. Heart rate 70. S1, S2 normal. There is no murmur. Heart sounds are distant. S1, S2 normal. LUNGS: Reveal a few scattered rhonchi. There are some mild high-pitched expiratory wheezes. No other adventitious lung sounds are noted. Breath sounds are equal bilaterally. ABDOMEN: Soft, but obese. Bowel sounds are heard. EXTREMITIES are intact. Slight edema noted. SKIN: Without rash. NEUROLOGIC: Examination is nonfocal. Microbiologic studies were noted. LABS: Reviewed. White count 7.9, hemoglobin 8, hematocrit 24.3, platelet count 59,000, sodium 134, potassium 5.3, chloride 94, CO2 is 20, anion gap is 20, BUN and creatinine were 77 and 4.59. She has an anion gap metabolic acidosis secondary to her renal failure. Albumin 3.2. Her chest x-ray shows continued fluid overload/CHF. Medications are reviewed. ASSESSMENT: 1. Hypoxemic respiratory failure secondary to sepsis, urinary tract infection, anemia, and pulmonary edema. 2. Acute kidney injury/acute tubular necrosis with hemodialysis x9 days in a row and subsequent placement of a permanent hemodialysis catheter on May 14. 3. Gram-positive bacteremia secondary to Staph species. 4. Enterococcus faecalis urinary tract infection. 5. Metastatic breast cancer, possible lymphangitic carcinomatosis. 6. History of obesity. 7. History of cerebrovascular accident. 8. Chemotherapy-induced pancytopenia. 9. History of anion gap metabolic acidosis secondary to chronic kidney disease. 10.History of atrial fibrillation/RVR. PLAN: No dialysis today. Hemodialysis catheter was placed yesterday. The 0.9 IV to be discontinued. Will get her off the AIRVO onto nasal cannula. I told the nurses not to pay attention to the saturations so much but to look of the patient clinically. Overall prognosis remains guarded. Will continue to follow. MMODL / IJN: [id number] /
[2019-05-15] MEDS: CEFEPIME 1 GM in SODIUM CHLORIDE 0.9% 50 ML IVPB SCH (11:52)
[2019-05-15 11:57] LABS: Glucose,Whole Blood 134 mg/dL (75-99)
--- NOTE | 2019-05-15 14:37 | P.PN ---
Subjective Progress Note Date: 05/15/19 Principal diagnosis: Fever, congestive heart failure, acute renal failure, metastatic breast cancer In follow-up patient is sitting in the chair, nasal cannula on, she can carry on a conversation with minimal shortness of breath, she has a slight appetite and is starting to tolerate oral intake, she is requiring intermittent antiemetics, no abdominal pain or cramping, dysuria, she had a bowel movement, denies black or bloody stool. Objective - Vital Signs Vital signs: Vital Signs Temp 98.1 F 05/15/19 12:00 Pulse 70 05/15/19 13:00 Resp 20 05/15/19 13:00 BP 102/56 05/15/19 13:00 Pulse Ox 85 L 05/15/19 13:00 Intake & Output 05/14/19 05/15/19 05/15/19 18:59 06:59 18:59 Intake Total 370 120 270 Output Total 3000 0 Balance -2630 120 270 Weight 140 kg 136.1 kg Intake: IV 120 120 20 0.9 NS 120 120 20 Intake, IV Titration 100 Amount Cefepime 1 gm In Sodium 100 Chloride 0.9% 50 ml @ 100 mls/hr IVPB DAILY@1200 [facility] Rx#:[id number] Oral 250 150 Output: Urine 0 0 Hemodialysis 3000 Other: # Voids 0 # Bowel Movements 2 - Constitutional General appearance: Present: cooperative, no acute distress, obese - EENT Eyes: Present: anicteric sclerae, EOMI ENT: Present: hearing grossly normal - Respiratory Details: Diminished bilaterally but clear to auscultation on inspiration, some scattered expiratory rhonchi - Cardiovascular Heart sounds: normal: S1, S2 Abnormal Heart Sounds: Absent: systolic murmur, diastolic murmur, rub, S3 Gallop, S4 Gallop, click, other - Peripheral edema leg Peripheral Edema: bilateral: Trace - Gastrointestinal General gastrointestinal: Present: normal bowel sounds, soft - Neurologic Neurologic: Present: CNII-XII intact - Musculoskeletal Musculoskeletal: Present: generalized weakness - Psychiatric Psychiatric: Present: A&O x's 3, appropriate affect, intact judgment & insight - Labs CBC & Chem 7: 05/15/19 04:41 05/15/19 04:41 Labs: Abnormal Lab Results - Last 24 Hours (Table) 05/14/19 05/14/19 05/15/19 Range/Units 16:25 21:15 04:41 RBC 2.35 L (3.80-5.40) m/uL Hgb 8.0 L (11.4-16.0) gm/dL Hct 24.3 L (34.0-46.0) % MCV 103.6 H (80.0-100.0) fL RDW 21.2 H (11.5-15.5) % Plt Count 59 L (150-450) k/uL Lymphocytes # (Manual) 0.08 L (1.0-4.8) k/uL Metamyelocytes # (Man) 0.08 H (0) k/uL Nucleated RBCs 3 H (0-0) /100 WBC Sodium (137-145) mmol/L Potassium (3.5-5.1) mmol/L Chloride (98-107) mmol/L Carbon Dioxide (22-30) mmol/L BUN (7-17) mg/dL Creatinine (0.52-1.04) mg/dL Glucose (74-99) mg/dL POC Glucose (mg/dL) 185 H 183 H (75-99) mg/dL Calcium (8.4-10.2) mg/dL Total Bilirubin (0.2-1.3) mg/dL AST (14-36) U/L ALT (9-52) U/L Albumin (3.5-5.0) g/dL 05/15/19 05/15/19 05/15/19 Range/Units 04:41 07:02 11:45 RBC (3.80-5.40) m/uL Hgb (11.4-16.0) gm/dL Hct (34.0-46.0) % MCV (80.0-100.0) fL RDW (11.5-15.5) % Plt Count (150-450) k/uL Lymphocytes # (Manual) (1.0-4.8) k/uL Metamyelocytes # (Man) (0) k/uL Nucleated RBCs (0-0) /100 WBC Sodium 134 L (137-145) mmol/L Potassium 5.3 H (3.5-5.1) mmol/L Chloride 94 L (98-107) mmol/L Carbon Dioxide 20 L (22-30) mmol/L BUN 77 H (7-17) mg/dL Creatinine 4.59 H (0.52-1.04) mg/dL Glucose 155 H (74-99) mg/dL POC Glucose (mg/dL) 154 H 134 H (75-99) mg/dL Calcium 6.7 L (8.4-10.2) mg/dL Total Bilirubin 2.0 H (0.2-1.3) mg/dL AST 73 H (14-36) U/L ALT 68 H (9-52) U/L Albumin 3.2 L (3.5-5.0) g/dL - Imaging and Cardiology Chest x-ray: report reviewed Assessment and Plan (1) Acute respiratory failure Current Visit: Yes Status: Resolved Priority: High Code(s): J96.00 - ACUTE RESPIRATORY FAILURE, UNSP W HYPOXIA OR HYPERCAPNIA SNOMED Code(s): 08609764 (2) Metastatic breast carcinoma Narrative/Plan: Patient recently had change in her hormonal therapy from oral to IM. She received loading dose of Faslodex 03/14 through 04/16. Her last dose of Xgeva was on April 16. Patient will be due for xgeva and Faslodex in about 1 week. These medications can be delayed temporarily until patient is discharged from rehab or, we will place an appointment in the patient's chart and if she can be taken to that from rehab they will be administered. Ibrance will continue to be held at this time. Dr. Nieto will decide if dose adjustment or different therapy is appropriate. Improved performance status is desirable prior to beginning treatment again. Patient does have hormone receptor positive breast cancer that has numerous lines of therapy yet to be tried. Current Visit: Yes Status: Chronic Priority: Medium Code(s): C50.919 - MALIGNANT NEOPLASM OF UNSP SITE OF UNSPECIFIED FEMALE BREAST SNOMED Code(s): 763603473 (3) Fever Current Visit: Yes Status: Resolved Priority: High Code(s): R50.9 - FEVER, UNSPECIFIED SNOMED Code(s): 296657456 (4) Acute renal failure Narrative/Plan: Patient will continue on dialysis per Nephrology recommendations Current Visit: Yes Status: Acute Priority: High Code(s): N17.9 - ACUTE KIDNEY FAILURE, UNSPECIFIED SNOMED Code(s): 51603551 Plan: Eliquis has been discontinued
--- NOTE | 2019-05-15 16:50 | PN ---
PROGRESS NOTE DATE OF SERVICE: 05/15/2019. This 64-year-old woman who was admitted with multiple medical problems, including acute pneumonia, also had CHF. The patient also had multiple other medical problems, including acute renal failure. Patient is on hemodialysis. Patient is improving significantly. Patient had features of ARDS, which is also improving. The most recent chest x-ray, which I reviewed personally, showed some improvement. The patient is being closely monitored. The patient is off high-flow oxygen at this time. Past medical history reviewed. REVIEW OF SYSTEMS: CARDIOVASCULAR SYSTEM: As mentioned earlier. RESPIRATORY SYSTEM: As mentioned earlier. GI: As mentioned earlier. : As mentioned earlier. NERVOUS SYSTEM: No numbness. Generalized weakness present. CURRENT MEDICATIONS: Reviewed. They include: 1. [place] 5 mg q.4 p.r.n. 2. DuoNeb q.i.d. and p.r.n. 3. Xanax 0.25 t.i.d. 4. Cordarone 200 mg p.o. t.i.d. 5. Lipitor 40 mg at bedtime. 6. Pulmicort 1 mg b.i.d. 7. Cefepime 1 gram IV daily. 8. Flonase. 9. Perforomist 20 mcg b.i.d. 10.Neurontin 300 mg p.o. daily. 11.NovoLog before meals and at bedtime. 12.Solu-Medrol 40 IV q.6. 13.Toprol-XL 50 mg p.o. daily. 14.Lopressor 2.5 mg IV q.6. 15.Singulair 10 mg at bedtime. 16.Narcan p.r.n. 17.Zofran 4 mg q.6 p.r.n. 18.Protonix 40 mg. 19.MiraLAX 17 grams p.o. daily. 20.Senokot-S. 21.Sodium bicarb. 22.Carafate. PHYSICAL EXAMINATION: Patient is alert, oriented x3. Pulse is 70, blood pressure 102/56, respiration 20, temperature 98.1, pulse ox 92% on 12 L. HEENT: Conjunctivae normal. NECK: No jugular venous distention. CARDIOVASCULAR SYSTEM: S1, S2 muffled. RESPIRATORY SYSTEM: Breath sounds diminished at the bases. Bilateral scattered rhonchi and crackles. ABDOMEN: Soft, non-tender. No mass palpable. Obese. LEGS: Bilateral leg edema. NERVOUS SYSTEM: No focal deficit. LABS: WBC 7.9, hemoglobin 8. Sodium 134, potassium 5.3. Creatinine is 4.59. ASSESSMENT: 1. Acute right lower lobe pneumonia with possibly neutropenic sepsis, present on admission. 2. Acute renal failure, acute tubular necrosis, multifactorial, with prerenal factors, worsening; started on new-onset hemodialysis with PermCath, right neck. 3. Fluid overload with congestive heart failure, acute exacerbation, with acute on chronic systolic dysfunction, ejection fraction 45% to 50%, with acute hypoxic respiratory failure. 4. Severe aortic stenosis, moderate to severe aortic regurgitation, and mild to moderate tricuspid regurgitation. 5. Possible acute respiratory distress syndrome. 6. Atrial fibrillation with fast ventricular rate, paroxysmal. 7. Acute hypoxic respiratory failure, status post BiPAP. 8. Enterococcus faecalis, vancomycin-sensitive, from the urine culture. 9. Mary albicans in the sputum. 10.Pancytopenia secondary to chemotherapy. 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 12.Hyponatremia. 13.Increased AST. 14.Morbid obesity with body mass index of 62.9. 15.Hypertension. 16.History of left-sided cerebrovascular accident. 17.History of breast surgery. 18.Remote history of nicotine dependence. 19.FULL CODE. RECOMMENDATIONS AND DISCUSSION: In this 64-year-old woman who presented with multiple medical issues, at this time I recommend to continue current management, continue with symptomatic treatment, continue with the bronchodilators. Will taper the steroids further. Otherwise, continue with empiric antibiotics. The cultures are negative so far. Hemodialysis is being arranged. Once the patient makes a significant improvement, the patient may be able to go to [facility] rehab. They are considering [place] at this time. Continue to monitor. Repeat labs are ordered. Prognosis guarded because of multiple complex medical issues. Further recommendations to follow. A copy of this dictation is being forwarded to Dr. Quintero, who is the primary physician. MMJACKIEL / MARN: [id number] /
[2019-05-15 16:54] LABS: Glucose,Whole Blood 137 mg/dL (75-99)
--- NOTE | 2019-05-15 18:32 | PN ---
PROGRESS NOTE Patient is seen for followup for acute kidney injury. The patient continues to have minimal urine output. She is scheduled for hemodialysis in a.m. She has an IJ PermCath currently. On examination, she is comfortable. Blood pressure 96/58, heart rate 75 per minute. Patient is afebrile. EXAMINATION OF THE HEART: S1 and S2. EXAMINATION OF LUNGS: Bilateral breath sounds are heard. Decreased breath sounds at bases. ABDOMEN: Soft, non-tender, obese. Examination of lower extremities shows no evidence of edema. Labs show hemoglobin 8.0, sodium 134, potassium 5.3, BUN 77, serum creatinine 4.59. ASSESSMENT: 1. Acute kidney injury, oliguric, acute tubular necrosis, and secondary to vancomycin toxicity, currently hemodialysis-dependent. Patient has an IJ catheter. She will be going to [facility] for outpatient dialysis. We will plan on treatment tomorrow. 2. Volume overload, currently significantly improved. 3. Staphylococcus lugdunensis bacteremia. 4. Urinary tract infection with Enterococcus faecalis. 5. Breast cancer with metastasis. 6. Atrial fibrillation with rapid ventricular response, maintained on amiodarone. PLAN: Hemodialysis in a.m. MMODL / IJN: [id number] /
[2019-05-15] MEDS: SALT AND SODA MOUTHWASH 1,000 ML PO SCH ×3 (19:05→23:48)
[2019-05-15 21:05] LABS: Glucose,Whole Blood 129 mg/dL (75-99)
[2019-05-15] MEDS: MELATONIN 3 MG TABLET PO SCH (21:14)
[2019-05-15] MEDS: MONTELUKAST 10 MG TAB PO SCH (21:16)
[2019-05-15] MEDS: SENNOSIDES-DOCUSATE SODIUM 1 EACH TAB PO SCH (21:16)
[2019-05-15] MEDS: ATORVASTATIN 40 MG TAB PO SCH (21:16)
[2019-05-16 05:26] LABS: Anisocytosis Moderate; HCT 25.5 % (34.0-46.0); HGB 8.7 gm/dL (11.4-16.0); MCH 35.1 pg (25.0-35.0); MCHC 34.1 g/dL (31.0-37.0); MCV 103.1 fL (80.0-100.0); Macrocytosis Marked; Mean Platelet Volume 11.3; RBC 2.48 m/uL (3.80-5.40); RDW 22.8 % (11.5-15.5)
[2019-05-16 05:29] LABS: ALT 92 U/L (9-52); AST 92 U/L (14-36); Albumin 3.5 g/dL (3.5-5.0); Alkaline Phosphatase 118 U/L (38-126); Anion Gap 25 mmol/L; Calcium 6.5 mg/dL (8.4-10.2); Carbon Dioxide 14 mmol/L (22-30); Chloride 93 mmol/L (98-107); Glucose 196 mg/dL (74-99); Sodium 132 mmol/L (137-145); Total Bilirubin 2.1 mg/dL (0.2-1.3)
[2019-05-16 05:30] LABS: Platelet Count 68 k/uL (150-450)
[2019-05-16 05:52] LABS: Band Neutrophils % 4 %; Eosinophils # (M) 0.11 k/uL (0-0.7); Lymphocytes # (M) 0.46 k/uL (1.0-4.8); Metamyelocytes # (M) 0.11 k/uL (0); Metamyelocytes % 1 %; Monocytes # (M) 0.68 k/uL (0-1.0); Neutrophils % (M) 86 %; Nucleated Red Blood Cells 4 /100 WBC (0-0); Total Cells Counted 200; WBC 11.4 k/uL (3.8-10.6)
[2019-05-16 05:53] LABS: Polychromasia Present
[2019-05-16 05:54] LABS: Large Platelets Present; Poikilocytosis (M) Present
[2019-05-16] MEDS: SUCRALFATE 1 GM TAB PO SCH ×4 (06:40→21:29)
[2019-05-16] MEDS: PANTOPRAZOLE 40 MG TABLET PO SCH (06:40)
[2019-05-16] MEDS: methylPREDNISolone SOD SUCCI 40 MG/ML 1 ML VIAL IV SCH ×3 (06:42→17:30)
[2019-05-16] MEDS: SALT AND SODA MOUTHWASH 1,000 ML PO SCH ×4 (06:46→21:30)
[2019-05-16] MEDS: ONDANSETRON 4 MG/2 ML VIAL IVP PRN ×2 (06:48→21:37)
[2019-05-16] MEDS: INSULIN ASPART (NovoLOG) 100 UNIT/ML VIAL SQ SCH ×4 (06:48→21:30)
[2019-05-16 06:57] LABS: Glucose,Whole Blood 214 mg/dL (75-99)
[2019-05-16 07:29] LABS: Potassium 6.1 mmol/L (3.5-5.1)
[2019-05-16] MEDS: BUDESONIDE 1 MG/2 ML NEBU INHALATION SCH ×2 (07:34→19:16)
[2019-05-16] MEDS: FORMOTEROL FUMARATE 20 MCG/2 ML NEBU INHALATION SCH ×2 (07:34→19:16)
[2019-05-16] MEDS: IPRATROPIUM-ALBUTEROL 3 ML NEB INHALATION SCH ×4 (07:34→19:16)
[2019-05-16] MEDS ORDERED: INSULIN REGULAR 100 UNIT/ML VIAL IV ONE (08:14)
[2019-05-16 08:19] LABS: Glucose,Whole Blood 209 mg/dL (75-99)
--- NOTE | 2019-05-16 09:24 | XR ---
EXAMINATION TYPE: XR chest 1V DATE OF EXAM: 05/16/2019 HISTORY: Shortness of breath. COMPARISON: 05/15/2019 TECHNIQUE: Single view of the chest is submitted. FINDINGS: There is evidence of pulmonary venous congestion and interstitial edema. Central venous line. Overall appearance is somewhat improved. The heart is stable. Hilar and mediastinal structures are within normal limits. Degenerative changes are seen of the dorsal spine. IMPRESSION: 1. There is evidence of pulmonary venous congestion and interstitial edema. Central venous line. Ove rall appearance is somewhat improved.
--- NOTE | 2019-05-16 09:36 | P.PN ---
Subjective Progress Note Date: 05/16/19 Principal diagnosis: Hypoxemic respiratory failure secondary to sepsis, urinary tract infection, anemia, and pulmonary edema On 05/16/2019 she is seen in follow-up in the intensive care unit, she is awake and alert, she is currently down to 12 days per high flow nasal cannula, pulse ox is 95%, she is having her hemodialysis today, no running IVs, her breathing is improving, no complaints of dyspnea, no wheezing, no cough, no significant congestion, she is in -2500 mL fluid balance. Today's labs have been reviewed, showing white blood cell count of 11.4, hemoglobin of 8.7, serum sodium of 132, potassium 6.1, chloride was 93, CO2 is 14, calcium was 6.5. No nausea vomiting or diarrhea. Remains anuric. No Fever or chills. Today's chest x-ray has been reviewed showing evidence of pulmonary venous congestion and interstitial edema, overall a parous is somewhat improved. Objective - Vital Signs Vital signs: Vital Signs Temp 97.8 F 05/16/19 04:00 Pulse 62 05/16/19 07:57 Resp 10 L 05/16/19 07:00 BP 97/55 05/16/19 07:00 Pulse Ox 99 05/16/19 07:00 Intake & Output 05/15/19 05/16/19 05/16/19 18:59 06:59 18:59 Intake Total 470 300 Output Total 0 0 Balance 470 300 Weight 138.9 kg Intake: IV 20 0 0.9 NS 20 0 Intake, IV Titration 100 Amount Cefepime 1 gm In Sodium 100 Chloride 0.9% 50 ml @ 100 mls/hr IVPB DAILY@1200 [facility] Rx#:[id number] Oral 350 300 Output: Urine 0 0 - Exam GENERAL EXAM: Alert, pleasant, 64-year-old white female, on told his of oxygen per high flow nasal cannula comfortable in no apparent distress. HEAD: Normocephalic/atraumatic. EYES: Normal reaction of pupils, equal size. Conjunctiva pink, sclera white. NOSE: Clear with pink turbinates. THROAT: No erythema or exudates. NECK: No masses, no JVD, no thyroid enlargement, no adenopathy. CHEST: No chest wall deformity. Symmetrical expansion. Right upper chest hemodialysis permacath is in place LUNGS: Equal air entry with clear breath sounds, limited crackles at bases CVS: Regular rate and rhythm, normal S1 and S2, no gallops, no murmurs, no rubs ABDOMEN: Soft, nontender. No hepatosplenomegaly, normal bowel sounds, no guarding or rigidity. EXTREMITIES: No clubbing, no edema, no cyanosis, 2+ pulses and upper and lower extremities. MUSCULOSKELETAL: Muscle strength and tone normal. SPINE: No scoliosis or deformity SKIN: No rashes CENTRAL NERVOUS SYSTEM: Alert and oriented -3. No focal deficits, tone is normal in all 4 extremities. PSYCHIATRIC: Alert and oriented -3. Appropriate affect. Intact judgment and insight. - Labs CBC & Chem 7: 05/16/19 04:30 05/16/19 06:45 Labs: Abnormal Lab Results - Last 24 Hours (Table) 05/15/19 05/15/19 05/15/19 Range/Units 11:45 16:43 20:53 WBC (3.8-10.6) k/uL RBC (3.80-5.40) m/uL Hgb (11.4-16.0) gm/dL Hct (34.0-46.0) % MCV (80.0-100.0) fL MCH (25.0-35.0) pg RDW (11.5-15.5) % Plt Count (150-450) k/uL Neutrophils # (Manual) (1.3-7.7) k/uL Lymphocytes # (Manual) (1.0-4.8) k/uL Metamyelocytes # (Man) (0) k/uL Nucleated RBCs (0-0) /100 WBC Macrocytosis Sodium (137-145) mmol/L Potassium (3.5-5.1) mmol/L Chloride (98-107) mmol/L Carbon Dioxide (22-30) mmol/L BUN (7-17) mg/dL Creatinine (0.52-1.04) mg/dL Glucose (74-99) mg/dL POC Glucose (mg/dL) 134 H 137 H 129 H (75-99) mg/dL Calcium (8.4-10.2) mg/dL Total Bilirubin (0.2-1.3) mg/dL AST (14-36) U/L ALT (9-52) U/L 05/16/19 05/16/19 05/16/19 Range/Units 04:30 04:30 06:45 WBC 11.4 H (3.8-10.6) k/uL RBC 2.48 L (3.80-5.40) m/uL Hgb 8.7 L (11.4-16.0) gm/dL Hct 25.5 L (34.0-46.0) % MCV 103.1 H (80.0-100.0) fL MCH 35.1 H (25.0-35.0) pg RDW 22.8 H (11.5-15.5) % Plt Count 68 L (150-450) k/uL Neutrophils # (Manual) 10.20 H (1.3-7.7) k/uL Lymphocytes # (Manual) 0.46 L (1.0-4.8) k/uL Metamyelocytes # (Man) 0.11 H (0) k/uL Nucleated RBCs 4 H (0-0) /100 WBC Macrocytosis Marked A Sodium 132 L (137-145) mmol/L Potassium 6.1 H* (3.5-5.1) mmol/L Chloride 93 L (98-107) mmol/L Carbon Dioxide 14 L (22-30) mmol/L BUN 112 H* (7-17) mg/dL Creatinine 6.40 H (0.52-1.04) mg/dL Glucose 196 H (74-99) mg/dL POC Glucose (mg/dL) (75-99) mg/dL Calcium 6.5 L (8.4-10.2) mg/dL Total Bilirubin 2.1 H (0.2-1.3) mg/dL AST 92 H (14-36) U/L ALT 92 H (9-52) U/L 05/16/19 05/16/19 Range/Units 06:46 08:08 WBC (3.8-10.6) k/uL RBC (3.80-5.40) m/uL Hgb (11.4-16.0) gm/dL Hct (34.0-46.0) % MCV (80.0-100.0) fL MCH (25.0-35.0) pg RDW (11.5-15.5) % Plt Count (150-450) k/uL Neutrophils # (Manual) (1.3-7.7) k/uL Lymphocytes # (Manual) (1.0-4.8) k/uL Metamyelocytes # (Man) (0) k/uL Nucleated RBCs (0-0) /100 WBC Macrocytosis Sodium (137-145) mmol/L Potassium (3.5-5.1) mmol/L Chloride (98-107) mmol/L Carbon Dioxide (22-30) mmol/L BUN (7-17) mg/dL Creatinine (0.52-1.04) mg/dL Glucose (74-99) mg/dL POC Glucose (mg/dL) 214 H 209 H (75-99) mg/dL Calcium (8.4-10.2) mg/dL Total Bilirubin (0.2-1.3) mg/dL AST (14-36) U/L ALT (9-52) U/L Assessment and Plan Plan: Assessment: 1. Acute hypoxemic respiratory failure secondary to sepsis, urinary tract infection, and pulmonary edema #2. Acute kidney injury/acute tubular necrosis with hemodialysis, permanent dialysis catheter has been placed on May 14 #3. Gram-positive bacteremia secondary to staph species #4. Enterococcus faecalis urinary tract infection #5. Metastatic breast cancer, possibly lymphangitic carcinomatosis #6. History of obesity #7. History of cerebrovascular accident #8. Chemotherapy induced pancytopenia #9. History of atrial fibrillation RVR, currently in sinus rhythm Plan: Patient is receiving her hemodialysis treatment today, continue weaning FiO2, encouraged patient to use get up in the chair, ambulate in the room after the dialysis, no acute events overnight, oxygen dependent and has decreased, that his chest x-ray has been reviewed showing improvement in terms of interstitial edema. No fever or chills, patient is on appropriate antibiotics, taking to fo llow I performed a history & physical examination of the patient and discussed their management with my nurse practitioner, Renee Ramirez. I reviewed the nurse practitioner's note and agree with the documented findings and plan of care. Lung sounds are positive for diminished breath sounds in bases with minimal crackles. The findings and the impression was discussed with the patient. I attest to the documentation by the nurse practitioner. Time with Patient: Less than 30
[2019-05-16] MEDS: ASPIRIN 81 MG PO SCH (09:41)
[2019-05-16] MEDS: AMIODARONE 200 MG TAB PO SCH ×3 (09:41→21:30)
[2019-05-16] MEDS: FLUTICASONE 50MCG/SPRAY NASAL 16GM EA NOSTRIL SCH (09:41)
[2019-05-16] MEDS: GABAPENTIN 300 MG CAP PO SCH (09:42)
[2019-05-16] MEDS: METOPROLOL SUCCINATE (ER) 50 MG TAB.ER.24H PO SCH (09:42)
[2019-05-16 10:03] LABS: Glucose,Whole Blood 117 mg/dL (75-99)
--- NOTE | 2019-05-16 10:40 | P.PN ---
Subjective Progress Note Date: 05/16/19 This is a 64-year-old female was admitted to the hospital with sepsis, renal failure and intermittent atrial fibrillation with rapid ventricular response. Patient was put on IV Cardizem and also IV amiodarone. Patient has difficulty taking medications by mouth. Patient is back in sinus rhythm and maintaining sinus rhythm. We are switching to by mouth amiodarone and metoprolol and discontinue IV Cardizem and amiodarone. Otherwise patient is cardiac-mendoza stable. Patient does have BiPAP machine. She is also on dialysis. Her creatinine is in the range of 4-5 with a BUN of 80. We will continue with current medical therapy except changing to by mouth medications. This 64-year-old female with history of metastatic breast cancer, status post chemotherapy and also acute renal failure currently on dialysis. Patient had bouts of atrial fibrillation but is maintaining sinus rhythm. Patient is still unable to swallow and has been taking only ice chips. It is not clear if she is able to swallow his oral medications. Patient complains of being short of breath. Clinically does have some wheezing and rhonchi. Chest x-ray shows some residual infiltrates consistent with possible CHF. She is on dialysis and has no urinary output. Her creatinine is in the range of 4.5. Patient has pancyto penia mostly with anemia and thrombocytopenia. From Cardec standpoint we'll continue with oral beta linda and amiodarone. If necessary, we'll may have to switch to IV medication. We'll follow. Prognosis is guarded. 05/14/2019: This patient is cardiac-mendoza stable. Maintaining sinus rhythm. A ble to take oral medication including beta linda and also amiodarone. No arrhythmias are detected. Rest of the management as for nephrology. We'll follow. 05/15/2019: The patient is relatively stable. Maintaining sinus rhythm seemed to be able to take medication by mouth. No dialysis today. Chest x-ray shows some chronic congestive heart failure changes. Patient activity to be increased. From Cardec standpoint, patient is stable. Her creatinine is still in the range of 4-5. 05/16/2019: Patient is a relatively stable. There is some improvement on the chest x-ray. Denies any chest pain. Maintaining sinus rhythm. Undergoing dialysis today. Patient is able to swallow and continues today the pills. We'll continue current medical therapy. Increase activity as tolerated Objective - Vital Signs Vital signs: Vital Signs Temp 97.8 F 05/16/19 04:00 Pulse 62 05/16/19 07:57 Resp 10 L 05/16/19 07:00 BP 97/55 05/16/19 07:00 Pulse Ox 99 05/16/19 07:00 Intake & Output 05/15/19 05/16/19 05/16/19 18:59 06:59 18:59 Intake Total 470 300 Output Total 0 0 Balance 470 300 Weight 138.9 kg Intake: IV 20 0 0.9 NS 20 0 Intake, IV Titration 100 Amount Cefepime 1 gm In Sodium 100 Chloride 0.9% 50 ml @ 100 mls/hr IVPB DAILY@1200 [facility] Rx#:[id number] Oral 350 300 Output: Urine 0 0 - Exam GENERAL EXAM: Patient is alert and oriented and doesn't appear to be in any acute distress. Patient is on BiPAP HEENT: Normocephalic. Normal reaction of pupils, equal size, normal range of extraocular motion. No erythema or exudates in the throat. NECK: No masses, no nuchal rigidity. CHEST: No chest wall deformity. LUNGS: Expiratory wheezes HEART: S1 and S2 normal with no audible mumurs or gallops. Regular rhythm, femorals equal on both sides.. ABDOMEN: No hepatosplenomegaly, normal bowel sounds, no guarding or rigidity. SKIN: No rashes CENTRAL NERVOUS SYSTEM: No focal deficits. EXTREMITIES: No cyanosis, clubbing or edema. - Labs CBC & Chem 7: 05/16/19 04:30 05/16/19 06:45 Labs: Abnormal Lab Results - Last 24 Hours (Table) 05/15/19 05/15/19 05/15/19 Range/Units 11:45 16:43 20:53 WBC (3.8-10.6) k/uL RBC (3.80-5.40) m/uL Hgb (11.4-16.0) gm/dL Hct (34.0-46.0) % MCV (80.0-100.0) fL MCH (25.0-35.0) pg RDW (11.5-15.5) % Plt Count (150-450) k/uL Neutrophils # (Manual) (1.3-7.7) k/uL Lymphocytes # (Manual) (1.0-4.8) k/uL Metamyelocytes # (Man) (0) k/uL Nucleated RBCs (0-0) /100 WBC Macrocytosis Sodium (137-145) mmol/L Potassium (3.5-5.1) mmol/L Chloride (98-107) mmol/L Carbon Dioxide (22-30) mmol/L BUN (7-17) mg/dL Creatinine (0.52-1.04) mg/dL Glucose (74-99) mg/dL POC Glucose (mg/dL) 134 H 137 H 129 H (75-99) mg/dL Calcium (8.4-10.2) mg/dL Total Bilirubin (0.2-1.3) mg/dL AST (14-36) U/L ALT (9-52) U/L 05/16/19 05/16/19 05/16/19 Range/Units 04:30 04:30 06:45 WBC 11.4 H (3.8-10.6) k/uL RBC 2.48 L (3.80-5.40) m/uL Hgb 8.7 L (11.4-16.0) gm/dL Hct 25.5 L (34.0-46.0) % MCV 103.1 H (80.0-100.0) fL MCH 35.1 H (25.0-35.0) pg RDW 22.8 H (11.5-15.5) % Plt Count 68 L (150-450) k/uL Neutrophils # (Manual) 10.20 H (1.3-7.7) k/uL Lymphocytes # (Manual) 0.46 L (1.0-4.8) k/uL Metamyelocytes # (Man) 0.11 H (0) k/uL Nucleated RBCs 4 H (0-0) /100 WBC Macrocytosis Marked A Sodium 132 L (137-145) mmol/L Potassium 6.1 H* (3.5-5.1) mmol/L Chloride 93 L (98-107) mmol/L Carbon Dioxide 14 L (22-30) mmol/L BUN 112 H* (7-17) mg/dL Creatinine 6.40 H (0.52-1.04) mg/dL Glucose 196 H (74-99) mg/dL POC Glucose (mg/dL) (75-99) mg/dL Calcium 6.5 L (8.4-10.2) mg/dL Total Bilirubin 2.1 H (0.2-1.3) mg/dL AST 92 H (14-36) U/L ALT 92 H (9-52) U/L 05/16/19 05/16/19 05/16/19 Range/Units 06:46 08:08 09:50 WBC (3.8-10.6) k/uL RBC (3.80-5.40) m/uL Hgb (11.4-16.0) gm/dL Hct (34.0-46.0) % MCV (80.0-100.0) fL MCH (25.0-35.0) pg RDW (11.5-15.5) % Plt Count (150-450) k/uL Neutrophils # (Manual) (1.3-7.7) k/uL Lymphocytes # (Manual) (1.0-4.8) k/uL Metamyelocytes # (Man) (0) k/uL Nucleated RBCs (0-0) /100 WBC Macrocytosis Sodium (137-145) mmol/L Potassium (3.5-5.1) mmol/L Chloride (98-107) mmol/L Carbon Dioxide (22-30) mmol/L BUN (7-17) mg/dL Creatinine (0.52-1.04) mg/dL Glucose (74-99) mg/dL POC Glucose (mg/dL) 214 H 209 H 117 H (75-99) mg/dL Calcium (8.4-10.2) mg/dL Total Bilirubin (0.2-1.3) mg/dL AST (14-36) U/L ALT (9-52) U/L Assessment and Plan (1) Paroxysmal atrial fibrillation Current Visit: Yes Status: Acute Code(s): I48.0 - PAROXYSMAL ATRIAL FI BRILLATION SNOMED Code(s): 253522457 (2) Acute renal failure Current Visit: Yes Status: Acute Priority: High Code(s): N17.9 - ACUTE KIDNEY FAILURE, UNSPECIFIED SNOMED Code(s): 13294960 (3) Metastatic breast carcinoma Current Visit: Yes Status: Chronic Priority: Medium Code(s): C50.919 - MALIGNANT NEOPLASM OF UNSP SITE OF UNSPECIFIED FEMALE BREAST SNOMED Code(s): 293300736 Plan: patient is maintaining sinus rhythm. Chest x-ray shows improvement. Patient is able to take medication by mouth. Continue with the beta linda and amiodaron e. We'll follow.
--- NOTE | 2019-05-16 11:51 | P.PN ---
Subjective Progress Note Date: 05/16/19 Principal diagnosis: Bacteremia Objective - Vital Signs Vital signs: Vital Signs Temp 98.1 F 05/16/19 11:11 Pulse 70 05/16/19 11:11 Resp 25 H 05/16/19 11:11 BP 128/69 05/16/19 11:11 Pulse Ox 99 05/16/19 07:00 Intake & Output 05/15/19 05/16/19 05/16/19 18:59 06:59 18:59 Intake Total 470 300 Output Total 0 0 3000 Balance 470 300 -3000 Weight 138.9 kg Intake: IV 20 0 0.9 NS 20 0 Intake, IV Titration 100 Amount Cefepime 1 gm In Sodium 100 Chloride 0.9% 50 ml @ 100 mls/hr IVPB DAILY@1200 [facility] Rx#:[id number] Oral 350 300 Output: Urine 0 0 Hemodialysis 3000 - Exam General: Alert and Oriented x3, No Acute Distress, lethargic Head: Normocytic, Atraumatic Neck: Supple Mouth: No Lesions, No Thrush Eyes: Non-sclerotic No Palpable cervical, supraclavicular, axillary adenopathy Heart:Iregg irreg Lungs: Increased effort, Diminished, bipap Abdomen: Soft, Non-Distended, Non-Tended, BSx4 Neurological: No Focal Defects: No sensory or motor deficits noted - Labs CBC & Chem 7: 05/16/19 04:30 05/16/19 06:45 Labs: Abnormal Lab Results - Last 24 Hours (Table) 05/15/19 05/15/19 05/15/19 Range/Units 11:45 16:43 20:53 WBC (3.8-10.6) k/uL RBC (3.80-5.40) m/uL Hgb (11.4-16.0) gm/dL Hct (34.0-46.0) % MCV (80.0-100.0) fL MCH (25.0-35.0) pg RDW (11.5-15.5) % Plt Count (150-450) k/uL Neutrophils # (Manual) (1.3-7.7) k/uL Lymphocytes # (Manual) (1.0-4.8) k/uL Metamyelocytes # (Man) (0) k/uL Nucleated RBCs (0-0) /100 WBC Macrocytosis Sodium (137-145) mmol/L Potassium (3.5-5.1) mmol/L Chloride (98-107) mmol/L Carbon Dioxide (22-30) mmol/L BUN (7-17) mg/dL Creatinine (0.52-1.04) mg/dL Glucose (74-99) mg/dL POC Glucose (mg/dL) 134 H 137 H 129 H (75-99) mg/dL Calcium (8.4-10.2) mg/dL Total Bilirubin (0.2-1.3) mg/dL AST (14-36) U/L ALT (9-52) U/L 05/16/19 05/16/19 05/16/19 Range/Units 04:30 04:30 06:45 WBC 11.4 H (3.8-10.6) k/uL RBC 2.48 L (3.80-5.40) m/uL Hgb 8.7 L (11.4-16.0) gm/dL Hct 25.5 L (34.0-46.0) % MCV 103.1 H (80.0-100.0) fL MCH 35.1 H (25.0-35.0) pg RDW 22.8 H (11.5-15.5) % Plt Count 68 L (150-450) k/uL Neutrophils # (Manual) 10.20 H (1.3-7.7) k/uL Lymphocytes # (Manual) 0.46 L (1.0-4.8) k/uL Metamyelocytes # (Man) 0.11 H (0) k/uL Nucleated RBCs 4 H (0-0) /100 WBC Macrocytosis Marked A Sodium 132 L (137-145) mmol/L Potassium 6.1 H* (3.5-5.1) mmol/L Chloride 93 L (98-107) mmol/L Carbon Dioxide 14 L (22-30) mmol/L BUN 112 H* (7-17) mg/dL Creatinine 6.40 H (0.52-1.04) mg/dL Glucose 196 H (74-99) mg/dL POC Glucose (mg/dL) (75-99) mg/dL Calcium 6.5 L (8.4-10.2) mg/dL Total Bilirubin 2.1 H (0.2-1.3) mg/dL AST 92 H (14-36) U/L ALT 92 H (9-52) U/L 05/16/19 05/16/19 05/16/19 Range/Units 06:46 08:08 09:50 WBC (3.8-10.6) k/uL RBC (3.80-5.40) m/uL Hgb (11.4-16.0) gm/dL Hct (34.0-46.0) % MCV (80.0-100.0) fL MCH (25.0-35.0) pg RDW (11.5-15.5) % Plt Count (150-450) k/uL Neutrophils # (Manual) (1.3-7.7) k/uL Lymphocytes # (Manual) (1.0-4.8) k/uL Metamyelocytes # (Man) (0) k/uL Nucleated RBCs (0-0) /100 WBC Macrocytosis Sodium (137-145) mmol/L Potassium (3.5-5.1) mmol/L Chloride (98-107) mmol/L Carbon Dioxide (22-30) mmol/L BUN (7-17) mg/dL Creatinine (0.52-1.04) mg/dL Glucose (74-99) mg/dL POC Glucose (mg/dL) 214 H 209 H 117 H (75-99) mg/dL Calcium (8.4-10.2) mg/dL Total Bilirubin (0.2-1.3) mg/dL AST (14-36) U/L ALT (9-52) U/L Assessment and Plan Plan: Pancytopenia: - Secondary to chemotherapy with ibrance and Radiation - Hold chemotherapy at this time - Overall levels improved Acute Renal Insufficiency: - Dialysis per Nephrology Metastatic Breast cancer - Bone - ?Progression - Xgeva,Faslodex and Ibrance recently prescribed at progression - XRT to spine recently completed Neoplastic Related Pain: - Continue current pain regimen - Add bowel protocol. Acute Respiratory failure: - In ICU Care - Pulmonary Following Atrial Fibrillation with RVR: - On Amio Drip per cardiology
[2019-05-16 12:18] LABS: Glucose,Whole Blood 114 mg/dL (75-99)
[2019-05-16] MEDS: CEFEPIME 1 GM in SODIUM CHLORIDE 0.9% 50 ML IVPB SCH (12:30)
[2019-05-16] MEDS: HYDROcodone/APAP 5-325MG 1 EACH TAB PO PRN ×2 (13:46→21:31)
[2019-05-16] MEDS: SODIUM BICARBONATE TAB 650 MG TAB PO SCH ×2 (13:49→21:29)
--- NOTE | 2019-05-16 15:01 | P.PN ---
Subjective Progress Note Date: 05/16/19 05/16/2019 Patient is seen in follow-up in the intensive care unit, she is awake and alert, sitting up in the bedside chair; patient denies any specific complaints at this time she is currently down to 12 days per high flow nasal cannula, pulse ox is 95%, she is having her hemodialysis today, no running IVs, her breathing is improving, no complaints of dyspnea, no wheezing, no cough, no significant congestion, she is in -2500 mL fluid balance. Today's labs have been reviewed, showing white blood cell count of 11.4, hemoglobin of 8.7, serum sodium of 132, potassium 6.1, chloride was 93, CO2 is 14, calcium was 6.5. No nausea vomiting or diarrhea. Remains anuric. No Fever or chills. Today's chest x-ray has been reviewed showing evidence of pulmonary venous congestion and interstitial edema; improving. Objective - Vital Signs Vital signs: Vital Signs Temp 97.8 F 05/16/19 04:00 Pulse 62 05/16/19 07:57 Resp 10 L 05/16/19 07:00 BP 97/55 05/16/19 07:00 Pulse Ox 99 05/16/19 07:00 Intake & Output 05/15/19 05/16/19 05/16/19 18:59 06:59 18:59 Intake Total 470 300 Output Total 0 0 Balance 470 300 Weight 138.9 kg Intake: IV 20 0 0.9 NS 20 0 Intake, IV Titration 100 Amount Cefepime 1 gm In Sodium 100 Chloride 0.9% 50 ml @ 100 mls/hr IVPB DAILY@1200 [facility] Rx#:[id number] Oral 350 300 Output: Urine 0 0 - Exam GENERAL EXAM: Alert, pleasant, 64-year-old white female, on told his of oxygen per high flow nasal cannula comfortable in no apparent distress. HEAD: Normocephalic/atraumatic. EYES: Normal reaction of pupils, equal size. Conjunctiva pink, sclera white. NOSE: Clear with pink turbinates. THROAT: No erythema or exudates. NECK: No masses, no JVD, no thyroid enlargement, no adenopathy. CHEST: No chest wall deformity. Symmetrical expansion. Right upper chest hemodialysis permacath is in place LUNGS: Equal air entry with clear breath sounds, limited crackles at bases CVS: Regular rate and rhythm, normal S1 and S2, no gallops, no murmurs, no rubs ABDOMEN: Soft, nontender. No hepatosplenomegaly, normal bowel sounds, no guarding or rigidity. EXTREMITIES: No clubbing, no edema, no cyanosis, 2+ pulses and upper and lower extremities. MUSCULOSKELETAL: Muscle strength and tone normal. - Labs CBC & Chem 7: 05/16/19 04:30 05/16/19 06:45 Labs: Abnormal Lab Results - Last 24 Hours (Table) 05/15/19 05/15/19 05/15/19 Range/Units 11:45 16:43 20:53 WBC (3.8-10.6) k/uL RBC (3.80-5.40) m/uL Hgb (11.4-16.0) gm/dL Hct (34.0-46.0) % MCV (80.0-100.0) fL MCH (25.0-35.0) pg RDW (11.5-15.5) % Plt Count (150-450) k/uL Neutrophils # (Manual) (1.3-7.7) k/uL Lymphocytes # (Manual) (1.0-4.8) k/uL Metamyelocytes # (Man) (0) k/uL Nucleated RBCs (0-0) /100 WBC Macrocytosis Sodium (137-145) mmol/L Potassium (3.5-5.1) mmol/L Chloride (98-107) mmol/L Carbon Dioxide (22-30) mmol/L BUN (7-17) mg/dL Creatinine (0.52-1.04) mg/dL Glucose (74-99) mg/dL POC Glucose (mg/dL) 134 H 137 H 129 H (75-99) mg/dL Calcium (8.4-10.2) mg/dL Total Bilirubin (0.2-1.3) mg/dL AST (14-36) U/L ALT (9-52) U/L 05/16/19 05/16/19 05/16/19 Range/Units 04:30 04:30 06:45 WBC 11.4 H (3.8-10.6) k/uL RBC 2.48 L (3.80-5.40) m/uL Hgb 8.7 L (11.4-16.0) gm/dL Hct 25.5 L (34.0-46.0) % MCV 103.1 H (80.0-100.0) fL MCH 35.1 H (25.0-35.0) pg RDW 22.8 H (11.5-15.5) % Plt Count 68 L (150-450) k/uL Neutrophils # (Manual) 10.20 H (1.3-7.7) k/uL Lymphocytes # (Manual) 0.46 L (1.0-4.8) k/uL Metamyelocytes # (Man) 0.11 H (0) k/uL Nucleated RBCs 4 H (0-0) /100 WBC Macrocytosis Marked A Sodium 132 L (137-145) mmol/L Potassium 6.1 H* (3.5-5.1) mmol/L Chloride 93 L (98-107) mmol/L Carbon Dioxide 14 L (22-30) mmol/L BUN 112 H* (7-17) mg/dL Creatinine 6.40 H (0.52-1.04) mg/dL Glucose 196 H (74-99) mg/dL POC Glucose (mg/dL) (75-99) mg/dL Calcium 6.5 L (8.4-10.2) mg/dL Total Bilirubin 2.1 H (0.2-1.3) mg/dL AST 92 H (14-36) U/L ALT 92 H (9-52) U/L 05/16/19 05/16/19 Range/Units 06:46 08:08 WBC (3.8-10.6) k/uL RBC (3.80-5.40) m/uL Hgb (11.4-16.0) gm/dL Hct (34.0-46.0) % MCV (80.0-100.0) fL MCH (25.0-35.0) pg RDW (11.5-15.5) % Plt Count (150-450) k/uL Neutrophils # (Manual) (1.3-7.7) k/uL Lymphocytes # (Manual) (1.0-4.8) k/uL Metamyelocytes # (Man) (0) k/uL Nucleated RBCs (0-0) /100 WBC Macrocytosis Sodium (137-145) mmol/L Potassium (3.5-5.1) mmol/L Chloride (98-107) mmol/L Carbon Dioxide (22-30) mmol/L BUN (7-17) mg/dL Creatinine (0.52-1.04) mg/dL Glucose (74-99) mg/dL POC Glucose (mg/dL) 214 H 209 H (75-99) mg/dL Calcium (8.4-10.2) mg/dL Total Bilirubin (0.2-1.3) mg/dL AST (14-36) U/L ALT (9-52) U/L Assessment and Plan Assessment: 1. Acute hypoxic respiratory failure; multifactorial; - Acute right lower lobe pneumonia - ARDS - improving with current treatment with DuoNeb nebulizer treatments 4 times a day and when necessary; Pulmicort nebulizer twice a day; Perforomist 20 MCG twice a day; Solu-Medrol 40 mg IV every 6 hours; continue with IV antibiotics in form of cefepime 1 g IV daily; patient remains on high flow oxygen with plans to continue with gradual weaning as tolerated 2. Acute renal injury/ ATN; patient has permanent dialysis catheter and remains on hemodialysis 3. Gram-positive bacteremia; 4. UTI; Enterococcus faecalis 5. Acute on chronic systolic CHF; ejection fraction at 45-50%; stable; cardiology is following 6. Chemotherapy-induced pancytopenia; hematology is following; chemotherapy remains on hold; blood counts are stable 7. Atrial fibrillation with RVR; currently normal sinus rhythm; remains on oral amiodarone and rate controlled on metoprolol 50 mg by mouth daily along with 2.5 mg IV every 6 hours when necessary 8. DVT prophylaxis; SCDs/ increase activity with physical therapy CODE STATUS; full code Time with Patient: Greater than 30
[2019-05-16 17:02] LABS: Glucose,Whole Blood 160 mg/dL (75-99)
[2019-05-16] MEDS ORDERED: METOCLOPRAMIDE 5 MG/ML 2 ML VIAL IVP STA (18:46)
--- NOTE | 2019-05-16 19:48 | PN ---
PROGRESS NOTE Patient is seen for followup for acute kidney injury. This morning her potassium was 6 mEq/L. She is currently seen on dialysis, tolerating her treatment well. Patient continues to have no significant urine output. On examination this morning, blood pressure was 128/69, heart rate 62 per minute. She is afebrile. EXAMINATION OF THE HEART: S1 and S2. EXAMINATION OF LUNGS: Bilateral breath sounds are heard. ABDOMEN: Soft, obese, non-tender. Examination of lower extremities shows no significant edema. ELECTROCARDIOGRAPHIC TECHNICIAN exam is grossly intact. Labs show sodium 132, potassium 6.1. CO2 was 14. Calcium 6.5, albumin 3.5, hemoglobin 8.7 g/dL. ASSESSMENT: 1. Acute kidney injury, acute tubular necrosis and secondary to vancomycin toxicity, currently oligoanuric and dialysis-dependent. Patient did not have dialysis yesterday. This morning her potassium was at 6.1. She was also acidotic. She is being dialyzed. We will dialyze her again tomorrow. 2. Volume overload, currently significantly improved. 3. Metabolic acidosis secondary to renal failure, currently worse since patient was not dialyzed. There is no ongoing diarrhea noted at this time. 4. Atrial fibrillation with controlled ventricular response now, maintained on amiodarone. 5. Urinary tract infection with Enterococcus faecalis. 6. Staphylococcus lugdunensis bacteremia initially. Repeat blood cultures all negative. PLAN: Hemodialysis today and then again in a.m. Continue with the oral sodium bicarb. Expect improvement as patient is dialyzed today and again tomorrow. MMODL / IJN: [id number] /
[2019-05-16 21:02] LABS: Glucose,Whole Blood 156 mg/dL (75-99)
[2019-05-16] MEDS: MONTELUKAST 10 MG TAB PO SCH (21:29)
[2019-05-16] MEDS: ATORVASTATIN 40 MG TAB PO SCH (21:29)
[2019-05-16] MEDS: SENNOSIDES-DOCUSATE SODIUM 1 EACH TAB PO SCH (21:29)
[2019-05-16] MEDS: MELATONIN 3 MG TABLET PO SCH (21:33)
--- NOTE | 2019-05-16 21:51 | P.PN ---
Subjective Progress Note Date: 05/16/19 Pleasant 63-year-old female is a complex past medical history regarding her breast carcinoma. 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 Because of increasing pain and neurological difficulties she was evaluated was treated with radiation therapy to the cervical and thoracic spine . She Developed extensive radiation dermatitis and esophagitis. She was hospitalized [facility] and with treatment of the skin and esophagitis she had marked improvement. She has had a subsequent hospitalization at the outside facility where she had a urinary tract infection. She now presents to Hospital feeling poorly with evidence significant weakness with fever 102, chills and evidence of new abnormality. Chest x-ray acute renal failure and generalized malaise. With fluid resuscitation antibiotic therapy she started to feel somewhat better. Cultures are in process with concerns to urinary tract infection as a source of the current bout of sepsis. 05/02/2017 the patient's renal failure continues but her fevers improved. With the elevated vancomycin level this is put on hold. 05/04/2019 patient continues to have increasing creatinine, and feels poorly with her acute renal failure. She is having some shakiness to her arms and legs, weakness and poor appetite. However is not having nausea or emesis. All the food does taste poorly. She's had some increased difficulties with her oral cavity possibly thrush. 05/05/2019 the patient has had a significant worsening of her status overnight. She became profoundly short of breath and required transfusions and its care unit where she's now been placed on BiPAP has been titrated down to 50% now she is feeling considerably better bacillin well. She's having no chest pains. She was seen by cardiology there is evidence of volume overload as well as worsening of her aortic stenosis and regurgitation and pulmonary hypertension. The the treatment of failure has stabilized with no further increase of her creatinine. Vancomycin level is still therapeutic but falling. 05/06/2019 patient's volume status became more problematic, more short of breath She's been seen by the nephrology and dialysis is initiated. Approximately 2- 1/2 L of fluid have been removed and she is now less short of breath but emotional upset. It is her 64th birthday. 05/08/2019 patient has had further cycles of hemodialysis and is now approximately 10 L of fluid removed by ultrafiltration, is having some improvement over status but is still having a significant acute lung injury with the significant ongoing shortness of breath and BiPAP dependence. Her mood is poor and she is anxious about her overall care. 05/09/2019 patient no longer on bipap now on high flow O2 and doing well. fells better, and is hungry 05/12/2019 patient remains on Airvo lower rate. She is less short of breath awaappetite started to improve although relates that food does taste poorly. After last dialysis she is less short of breath. There are plans for a more permanent dialysis catheter. 05/13/2019 awaits HD catheter 05/14/2019 has had her hemodialysis catheter placed. She's feeling 70% better today. The best she has felt in quite some time. She's left short of breath and has some appetite. 05/16/2019 patient is feeling better. Has had a bout of nausea and emesis but is now able to eat some sherbet. Her pain is well controlled at this time. Her shortness of breath is considerably improved she's now on 5 L nasal cannula and is off the airvo. Objective - Vital Signs Vital signs: Vital Signs Temp 97.6 F 05/16/19 16:01 Pulse 69 05/16/19 21:00 Resp 15 05/16/19 21:00 BP 124/62 05/16/19 21:00 Pulse Ox 94 L 05/16/19 21:00 Intake & Output 05/16/19 05/16/19 05/17/19 06:59 18:59 06:59 Intake Total 300 550 200 Output Total 0 3000 100 Balance 300 -2450 100 Weight 138.9 kg 138.9 kg Intake: IV 0 0.9 NS 0 Intake, IV Titration 50 Amount Cefepime 1 gm In Sodium 50 Chloride 0.9% 50 ml @ 100 mls/hr IVPB DAILY@1200 [facility] Rx#:[id number] Oral 300 100 Tube Feeding 500 100 Output: Urine 0 0 Emesis 100 Hemodialysis 3000 Other: # Bowel Movements 1 - Exam 63-year-old woman presents to Hospital feeling poorly now with a significant worsening shortness of breath, BiPAP no longer used but on high richard oxygen HEENT: Anicteric conjunctiva are pink and moist nasal mucosa grossly intact without significant lesions, and the very posterior aspect of the pharynx is now some mild white coating consistent with early thrush. Neck: The neck is supple without significant lymphadenopathy or thyromegaly. Lungs: There is symmetrical air entry with coarse crackles and wheezing to the lung chiang basilar crackles are heard Heart: Regular with the 2/6 systolic murmur left sternal border Abdomen: Obese, Positive bowel sounds soft minimal tenderness is noted in the right upper quadrant without palpable masses or organomegaly. There was no guarding or rebound. Extremities: The upper extremities have excellent pulses they are symmetric, no significant petechiae or telangiectasia. No splinter hemorrhages were noted. The lower extremities have trace edema pulses 2+ and symmetric Neuro: Awake alert oriented to person place and time. There are no acute new gross focal sensory motor deficits. Skin reveals evidence of the resolution of the radiation dermatitis does have some residual color change but there is nothing ulcer. She is not having any further difficulties with the esophagitis either although does have a bit of dry mouth and throat. The right femoral dialysis catheter is removed and now has the right internal jugular catheter in place. Neither site is tender. - Labs CBC & Chem 7: 05/16/19 04:30 05/16/19 06:45 Labs: Abnormal Lab Results - Last 24 Hours (Table) 05/16/19 05/16/19 05/16/19 Range/Units 04:30 04:30 06:45 WBC 11.4 H (3.8-10.6) k/uL RBC 2.48 L (3.80-5.40) m/uL Hgb 8.7 L (11.4-16.0) gm/dL Hct 25.5 L (34.0-46.0) % MCV 103.1 H (80.0-100.0) fL MCH 35.1 H (25.0-35.0) pg RDW 22.8 H (11.5-15.5) % Plt Count 68 L (150-450) k/uL Neutrophils # (Manual) 10.20 H (1.3-7.7) k/uL Lymphocytes # (Manual) 0.46 L (1.0-4.8) k/uL Metamyelocytes # (Man) 0.11 H (0) k/uL Nucleated RBCs 4 H (0-0) /100 WBC Macrocytosis Marked A Sodium 132 L (137-145) mmol/L Potassium 6.1 H* (3.5-5.1) mmol/L Chloride 93 L (98-107) mmol/L Carbon Dioxide 14 L (22-30) mmol/L BUN 112 H* (7-17) mg/dL Creatinine 6.40 H (0.52-1.04) mg/dL Glucose 196 H (74-99) mg/dL POC Glucose (mg/dL) (75-99) mg/dL Calcium 6.5 L (8.4-10.2) mg/dL Total Bilirubin 2.1 H (0.2-1.3) mg/dL AST 92 H (14-36) U/L ALT 92 H (9-52) U/L 05/16/19 05/16/19 05/16/19 Range/Units 06:46 08:08 09:50 WBC (3.8-10.6) k/uL RBC (3.80-5.40) m/uL Hgb (11.4-16.0) gm/dL Hct (34.0-46.0) % MCV (80.0-100.0) fL MCH (25.0-35.0) pg RDW (11.5-15.5) % Plt Count (150-450) k/uL Neutrophils # (Manual) (1.3-7.7) k/uL Lymphocytes # (Manual) (1.0-4.8) k/uL Metamyelocytes # (Man) (0) k/uL Nucleated RBCs (0-0) /100 WBC Macrocytosis Sodium (137-145) mmol/L Potassium (3.5-5.1) mmol/L Chloride (98-107) mmol/L Carbon Dioxide (22-30) mmol/L BUN (7-17) mg/dL Creatinine (0.52-1.04) mg/dL Glucose (74-99) mg/dL POC Glucose (mg/dL) 214 H 209 H 117 H (75-99) mg/dL Calcium (8.4-10.2) mg/dL Total Bilirubin (0.2-1.3) mg/dL AST (14-36) U/L ALT (9-52) U/L 05/16/19 05/16/19 05/16/19 Range/Units 12:07 16:50 20:51 WBC (3.8-10.6) k/uL RBC (3.80-5.40) m/uL Hgb (11.4-16.0) gm/dL Hct (34.0-46.0) % MCV (80.0-100.0) fL MCH (25.0-35.0) pg RDW (11.5-15.5) % Plt Count (150-450) k/uL Neutrophils # (Manual) (1.3-7.7) k/uL Lymphocytes # (Manual) (1.0-4.8) k/uL Metamyelocytes # (Man) (0) k/uL Nucleated RBCs (0-0) /100 WBC Macrocytosis Sodium (137-145) mmol/L Potassium (3.5-5.1) mmol/L Chloride (98-107) mmol/L Carbon Dioxide (22-30) mmol/L BUN (7-17) mg/dL Creatinine (0.52-1.04) mg/dL Glucose (74-99) mg/dL POC Glucose (mg/dL) 114 H 160 H 156 H (75-99) mg/dL Calcium (8.4-10.2) mg/dL Total Bilirubin (0.2-1.3) mg/dL AST (14-36) U/L ALT (9-52) U/L Laboratory Results WBC 11.4 k/uL (3.8-10.6) H 05/16/19 04:30 RBC 2.48 m/uL (3.80-5.40) L 05/16/19 04:30 Hgb 8.7 gm/dL (11.4-16.0) L 05/16/19 04:30 Hct 25.5 % (34.0-46.0) L 05/16/19 04:30 MCV 103.1 fL (80.0-100.0) H 05/16/19 04:30 MCH 35.1 pg (25.0-35.0) H 05/16/19 04:30 MCHC 34.1 g/dL (31.0-37.0) 05/16/19 04:30 RDW 22.8 % (11.5-15.5) H 05/16/19 04:30 Plt Count 68 k/uL (150-450) L 05/16/19 04:30 Neutrophils % 93 % 05/09/19 05:26 Neutrophils % (Manual) 86 % 05/16/19 04:30 Band Neutrophils % 4 % 05/16/19 04:30 Lymphocytes % 2 % 05/09/19 05:26 Lymphocytes % (Manual) 4 % 05/16/19 04:30 Monocytes % 3 % 05/09/19 05:26 Monocytes % (Manual) 6 % 05/16/19 04:30 Eosinophils % 1 % 05/09/19 05:26 Eosinophils % (Manual) 1 % 05/16/19 04:30 Basophils % 0 % 05/09/19 05:26 Metamyelocytes % 1 % 05/16/19 04:30 Myelocytes % 1 % 05/13/19 04:18 Neutrophils # 6.7 k/uL (1.3-7.7) 05/09/19 05:26 Neutrophils # (Manual) 10.20 k/uL (1.3-7.7) H 05/16/19 04:30 Lymphocytes # 0.2 k/uL (1.0-4.8) L 05/09/19 05:26 Lymphocytes # (Manual) 0.46 k/uL (1.0-4.8) L 05/16/19 04:30 Monocytes # 0.2 k/uL (0-1.0) 05/09/19 05:26 Monocytes # (Manual) 0.68 k/uL (0-1.0) 05/16/19 04:30 Eosinophils # 0.1 k/uL (0-0.7) 05/09/19 05:26 Eosinophils # (Manual) 0.11 k/uL (0-0.7) 05/16/19 04:30 Basophils # 0.0 k/uL (0-0.2) 05/09/19 05:26 Metamyelocytes # (Man) 0.11 k/uL (0) H 05/16/19 04:30 Myelocytes # (Manual) 0.07 k/uL (0) H 05/13/19 04:18 Nucleated RBCs 4 /100 WBC (0-0) H 05/16/19 04:30 Manual Slide Review Performed 05/16/19 04:30 Hypersegmented Neuts Present 05/12/19 04:29 Toxic Granulation Present 05/15/19 04:41 Large Platelets Present 05/16/19 04:30 Polychromasia Present 05/16/19 04:30 Hypochromasia Slight 05/11/19 04:56 Poikilocytosis (manual Present 05/16/19 04:30 Basophilic Stippling Present 05/13/19 04:18 Anisocytosis Moderate 05/16/19 04:30 Anisocytosis (manual) Present 05/15/19 04:41 Macrocytosis Marked A 05/16/19 04:30 Rouleaux Present 05/02/19 06:57 PT 10.7 sec (9.0-12.0) 05/01/19 12:37 INR 1.0 (<1.2) 05/01/19 12:37 APTT 26.3 sec (22.0-30.0) 05/01/19 12:37 Sample Site rrad 05/11/19 10:09 ABG pH 7.50 (7.35-7.45) H 05/11/19 10:09 ABG pCO2 30 mmHg (35-45) L 05/11/19 10:09 ABG pO2 82 mmHg (83-108) L 05/11/19 10:09 ABG HCO3 23 mmol/L (21-25) 05/11/19 10:09 ABG Total CO2 24 mmol/L (19-24) 05/11/19 10:09 ABG O2 Saturation 96.7 % (94-97) 05/11/19 10:09 ABG Base Excess -0.2 mmol/L 05/11/19 10:09 Arian Test Yes 05/11/19 10:09 FiO2 50 % 05/11/19 10:09 Sodium 132 mmol/L (137-145) L 05/16/19 04:30 Potassium 6.1 mmol/L (3.5-5.1) H* 05/16/19 06:45 Chloride 93 mmol/L (98-107) L 05/16/19 04:30 Carbon Dioxide 14 mmol/L (22-30) L 05/16/19 04:30 Anion Gap 25 mmol/L 05/16/19 04:30 BUN 112 mg/dL (7-17) H* 05/16/19 06:45 Creatinine 6.40 mg/dL (0.52-1.04) H 05/16/19 06:45 Est GFR (CKD-EPI)AfAm 7 (>60 ml/min/1.73 sqM) 05/16/19 06:45 Est GFR (CKD-EPI)NonAf 6 (>60 ml/min/1.73 sqM) 05/16/19 06:45 Glucose 196 mg/dL (74-99) H 05/16/19 04:30 POC Glucose (mg/dL) 156 mg/dL (75-99) H 05/16/19 20:51 POC Glu Spa Experience Coordinator ID Travon Boyd 05/16/19 20:51 Plasma Lactic Acid Jon 0.9 mmol/L (0.7-2.0) 05/05/19 08:15 Calcium 6.5 mg/dL (8.4-10.2) L 05/16/19 04:30 Ionized Calcium Peter 3.9 mg/dL (4.5-5.3) L 05/09/19 05:26 Phosphorus 7.4 mg/dL (2.5-4.5) H 05/11/19 04:56 Magnesium 2.6 mg/dL (1.6-2.3) H 05/11/19 04:56 Iron 246 ug/dL (50-170) H 05/10/19 04:38 TIBC 273 ug/dL (228-460) 05/10/19 04:38 Iron Saturation 90.11 (12.00-45.00) H 05/10/19 04:38 Total Bilirubin 2.1 mg/dL (0.2-1.3) H 05/16/19 04:30 AST 92 U/L (14-36) H 05/16/19 04:30 ALT 92 U/L (9-52) H 05/16/19 04:30 Alkaline Phosphatase 118 U/L (38-126) 05/16/19 04:30 NT-Pro-B Natriuret Pep 55333 pg/mL 05/05/19 00:23 Total Protein 7.0 g/dL (6.3-8.2) 05/16/19 04:30 Albumin 3.5 g/dL (3.5-5.0) 05/16/19 04:30 Triglycerides 173 mg/dL (<150) H 05/09/19 05:26 Urine Color Dark Brown 04/30/19 13:00 Urine Appearance Turbid (Clear) H 04/30/19 13:00 Urine pH 5.0 (5.0-8.0) 04/30/19 13:00 Ur Specific [place] 1.016 (1.001-1.035) 04/30/19 13:00 Urine Protein 2+ (Negative) H 04/30/19 13:00 Urine Glucose (UA) Negative (Negative) 04/30/19 13:00 Urine Ketones Negative (Negative) 04/30/19 13:00 Urine Blood Large (Negative) H 04/30/19 13:00 Urine Nitrite Negative (Negative) 04/30/19 13:00 Urine Bilirubin Negative (Negative) 04/30/19 13:00 Urine Urobilinogen 4.0 mg/dL (<2.0) 04/30/19 13:00 Ur Leukocyte Esterase Large (Negative) H 04/30/19 13:00 Urine RBC >182 /hpf (0-5) H 04/30/19 13:00 Urine WBC 40 /hpf (0-5) H 04/30/19 13:00 Urine WBC Clumps Occasional /hpf (None) H 04/30/19 13:00 Ur Squamous Epith Cells 13 /hpf (0-4) H 04/30/19 13:00 Urine Bacteria Moderate /hpf (None) H 04/30/19 13:00 Urine Mucus Occasional /hpf (None) H 04/30/19 13:00 Random Vancomycin 16.4 ug/mL 05/06/19 04:06 Serum ANNE-MARIE Interpret SEE NOTE 05/03/19 23:18 Urine Immunofixation SEE NOTE 05/03/19 14:30 LOUANN Screen NEGATIVE (NEGATIVE) 05/03/19 23:18 c-ANCA <1:20 Titer (<1:20) 05/03/19 23:18 p-ANCA <1:20 Titer (<1:20) 05/03/19 23:18 Double Strand DNA Ab NEGATIVE (NEGATIVE) 05/03/19 23:18 Anti-DNA Ab Interp <1.0 IU/mL 05/03/19 23:18 Complement C3 117.0 mg/dL (80.0-207.0) 05/03/19 23:18 Complement C4 16.4 mg/dL (10.0-53.0) 05/03/19 23:18 Tot Complement (CH50) 92 U/mL (42 - 95) 05/06/19 04:06 Hepatitis A IgM Ab Non-Reactive (Non-Reactive) 05/03/19 23:18 Hep Bs Antigen Non-Reactive (Non-Reactive) 05/06/19 14:00 Hep Bs Antibody Non-Reactive (Non-Reactive) 05/05/19 14:00 Hep Bs Antibody, Quant 3.5 mIU/mL 05/05/19 14:00 Hep B Core Total Ab Non-Reactive (Non-Reactive) 05/06/19 14:00 Hep B Core IgM Ab Non-Reactive (Non-Reactive) 05/03/19 23:18 Hep C IgG Ab Non-Reactive (Non-Reactive) 05/03/19 23:18 Influenza Type A RNA Not Detected (Not Detectd) 04/30/19 13:04 Influenza Type B (PCR) Not Detected (Not Detectd) 04/30/19 13:04 Microbiology 05/05/19 04:39 Blood Blood Culture - Final No Growth after 144 hours 05/05/19 04:12 Blood Blood Culture - Final No Growth after 144 hours 05/03/19 23:18 Blood Blood Culture - Final No Growth after 144 hours 04/30/19 11:43 Blood Blood Culture Gram Stain - Final 04/30/19 11:43 Blood Blood Culture - Final Staphylococcus lugdunenisis 05/02/19 09:21 Sputum Gram Stain - Final 05/02/19 09:21 Sputum Sputum Culture - Final Mary albicans 04/30/19 13:00 Urine,Voided Urine Culture - Final Enterococcus faecalis 04/30/19 11:43 Blood Blood Culture - Final Assessment and Plan (1) Acute renal failure Current Visit: Yes Status: Acute Priority: High Code(s): N17.9 - ACUTE KIDNEY FAILURE, UNSPECIFIED SNOMED Code(s): 76867183 (2) Gram-positive cocci bacteremia Current Visit: No Status: Acute Code(s): R78.81 - BACTEREMIA SNOMED Code(s): 085184729492 (3) Metastatic breast carcinoma Current Visit: Yes Status: Chronic Priority: Medium Code(s): C50.919 - MALIGNANT NEOPLASM OF UNSP SITE OF UNSPECIFIED FEMALE BREAST SNOMED Code(s): 976872355 (4) Urinary tract infection Narrative/Plan: 63-year-old woman who has a history of the metastaticBreast carcinoma with evidence of significant metastasis to the skeleton as well as liver metastasis presents to Hospital feeling poorly with another bout of fever chills malaise occurring after her recent treatment with chemotherapy. Been seen by her oncology team and chemotherapy is now on hold. He does not have severe neutropenia and is being monitored. There is evidence of urinary tract infection is likely etiology her current sepsis and laboratories: Positive blood culture with gram-positive cocci. She's had several prior blood cultures with gram-positive cocci that has been staphylococcus ludegensis, which is a coagulase-negative staph and since the patient does not have an indwelling cat heter has not been thought to be a significant pathogen. Somewhat concerning if it continues to be found. Urine culture is showing evidence of gram-positive cocci and constantly vancomycin therapy is being utilized as well as Rocephin until there is further data. She has developed acute renal failure and consequently very close monitoring with vancomycin therapy is indicated we'll try to limit the dosing as much as possible. Nephrology will be seeing her for her acute increase of her creatinine to 3.46. 2-D echocardiogram has been requested and she shall be monitored. 05/02/2018 dear culture now shows evidence of enterococcus blood cultures are growing coagulase negative staph. Antibiotic therapy will now be D escalated. The Rocephin and vancomycin are discontinued. Vancomycin level currently is elevated. Once his level falls to less than 15 will then be able to initiate alternative antibiotic therapy for the treatment of the enterococcus. If blood cultures remain negative would not need further IV antibiotic therapy. 05/04/2019 the patient continues to feel very poorly with evidence of her acute renal failure the toxicity associated with that. The vancomycin level has d ropped to 23 and likely will be subtherapeutic and the next day or so. At that time with initiate by therapy to complete the treatment of her enterococcal infection. Nephrology is following and continue to contemplate the need for renal replacement therapy. The patient's blood cultures are being repeated to ensure that the foot was negative staph is not persistent, is noted he has been seen on several occasions in the past, but she does not have any indwelling catheters. 05/05/2019 the patient has had a significant worsening of her status development of respiratory failure requiring BiPAP therapy with evidence of congestive heart failure and worsening underlying cardiac function. Aortic stenosis and regurgitation symptoms considerably worse in her pulmonary hypertension is worse. With diuresis she is having less short of breath her BiPAP as tolerated 50% The vancomycin level will likely come subtherapeutic tomorrow and that will consider alteration of antibiotic therapy vancomycin is being utilized for the enterococcal urinary tract infection 05/06/2019 patient does feel slightly better with her hemodialysis it is started today. 2 half liters of fluid removed the profound shortness of breath is starting to improve. She will have dialysis again in the morning. Vancomycin level is being followed when subtherapeutic we'll need to consider if she needs further antibiotic therapy for her enterococcal urinary tract infection. She's had the multiple blood cultures with Staphylococcus ludigenesis overtime, she does not have an indwelling port. Most recent echocardiogram does not reveal evidence of endocarditis she does have significant valvular heart disease. When she is further improved may need a JERAMY. 05/08/2019 the patient is now had several cycles of hemodialysis and has had approximately 10 L of fluid removed. She still very short of breath requiring BiPAP. The patient is now had an adequate course of therapy for her enterococcal urinary tract infection vancomycin level is now trending toward subtherapeutic. She does not require further antibiotic therapy at this time. Of note the patient's creatinine was elevated before the first dose of vancomycin therapy. 05/09/2019 doing much better today off bipap and less SOB she's been doing well with the hemodialysis and ultrafiltration removing approximately 13 L of fluid he gained some appetite and mood and affect are somewhat improve She Has had adequate treatment of her urinary tract infection and needs no further antibiotic therapy this time. 05/12/2019 the patient has had further dialysis and is slightly less fluid overloaded and has improved creatinine. She is less short of breath, appetite still poor but attempting to eat. Nephrology has been following and is doing well with renal replacement therapy, plan for change to a more permanent dialysis catheter to continue ongoing hemodialysis. The original infection has not been well treated and requires no further antibiotic therapy at this time. An admission was already having renal failure, potentially worsened by the initial vancomycin therapy for her sepsis at admission. 05/13/2019 stable, for HD catheter placement antibiotics have completed and is improving. Less SOB 05/14/2019 patient is feeling better. Said that she's felt in some time. Doing well with the new hemodialysis catheter. Antibiotic therapy is complete and is being monitored. 05/16/2019 patient has further improvement. Is now on nasal cannula oxygen. Blood short of breath. Still having some bouts of nausea and emesis usually right after hemodialysis as it happened today. Some Zofran will be helpful. Continue try to improve her diet and her physical activity. She is off antibiotic therapy and remained stable. No evidence of new active infection at this time. Current Visit: Yes Status: Acute Code(s): N39.0 - URINARY TRACT INFECTION, SITE NOT SPECIFIED SNOMED Code(s): 90523207
[2019-05-17] MEDS: SALT AND SODA MOUTHWASH 1,000 ML PO SCH ×6 (00:36→23:53)
[2019-05-17] MEDS: METOCLOPRAMIDE 5 MG/ML 2 ML VIAL IVP SCH ×5 (00:36→23:53)
[2019-05-17] MEDS: methylPREDNISolone SOD SUCCI 40 MG/ML 1 ML VIAL IV SCH ×2 (00:36→05:41)
[2019-05-17 06:03] LABS: Anisocytosis Moderate; HCT 25.6 % (34.0-46.0); HGB 8.3 gm/dL (11.4-16.0); MCHC 32.2 g/dL (31.0-37.0); MCV 105.6 fL (80.0-100.0); Macrocytosis Marked; Mean Platelet Volume 11.1; RBC 2.42 m/uL (3.80-5.40); RDW 22.3 % (11.5-15.5)
[2019-05-17 06:11] LABS: Calcium 6.6 mg/dL (8.4-10.2); Platelet Count 59 k/uL (150-450); Total Bilirubin 2.4 mg/dL (0.2-1.3)
[2019-05-17 06:12] LABS: Albumin 3.4 g/dL (3.5-5.0); Potassium 5.7 mmol/L (3.5-5.1); Total Protein 6.7 g/dL (6.3-8.2)
--- NOTE | 2019-05-17 06:38 | XR ---
EXAMINATION TYPE: XR chest 1V DATE OF EXAM: 05/17/2019 HISTORY: SOB. REFERENCE: Previous study dated 05/16/2019. FINDINGS: There is a large-bore, double-lumen catheter in place via a right internal jugular approach . Its tip is in the right atrium. The heart is mildly enlarged. There is mild vascular congestion without deisy edema. No definite pleu ral fluid is present. IMPRESSION: MILD CARDIOMEGALY AND VASCULAR CONGESTION
[2019-05-17] MEDS: PANTOPRAZOLE 40 MG TABLET PO SCH (06:55)
[2019-05-17] MEDS: SUCRALFATE 1 GM TAB PO SCH ×4 (06:55→20:32)
[2019-05-17] MEDS: INSULIN ASPART (NovoLOG) 100 UNIT/ML VIAL SQ SCH ×4 (06:59→20:33)
[2019-05-17 07:05] LABS: Glucose,Whole Blood 158 mg/dL (75-99)
[2019-05-17] MEDS: IPRATROPIUM-ALBUTEROL 3 ML NEB INHALATION SCH ×4 (07:17→19:05)
[2019-05-17] MEDS: FORMOTEROL FUMARATE 20 MCG/2 ML NEBU INHALATION SCH ×2 (07:17→19:06)
[2019-05-17] MEDS: BUDESONIDE 1 MG/2 ML NEBU INHALATION SCH ×2 (07:17→19:05)
--- NOTE | 2019-05-17 07:36 | P.PN ---
Subjective Progress Note Date: 05/17/19 Principal diagnosis: Hypoxemic respiratory failure secondary to sepsis, urinary tract infection, anemia and pulmonary edema Patient seen today 05/17/2019 in follow-up in the intensive care unit. She is currently resting comfortably in bed. Awake and alert in no acute distress. She is down to 5 L high flow nasal cannula and maintaining O2 saturations in the 90s. She's been afebrile. Hemodynamically stable. No IVs. She is receiving extra hemodialysis today due to abnormal labs including potassium 5.7. Creatinine 4.80. White count 9.0. Hemoglobin 8.3. Platelet count 59,000. AST 100, ALT 101. Blood cultures reveal no growth. Sputum culture reveals no growth. She is having some issues with nausea and vomiting and is on Zofran and Reglan. She is also maintained on DuoNeb inhalations, Pulmicort and Perforomist inhalations, IV Solu-Medrol, Singulair. X-ray reveals mild cardiomegaly with some mild vascular congestion without deisy edema. No definite pleural effusions present. Objective - Vital Signs Vital signs: Vital Signs Temp 97.8 F 05/17/19 04:00 Pulse 73 05/17/19 07:00 Resp 20 05/17/19 07:00 BP 128/54 05/17/19 07:00 Pulse Ox 94 L 05/17/19 07:00 Intake & Output 05/16/19 05/17/19 05/17/19 18:59 06:59 18:59 Intake Total 550 400 Output Total 3000 200 Balance -2450 200 Weight 138.9 kg 133.5 kg Intake: Intake, IV Titration 50 Amount Cefepime 1 gm In Sodium 50 Chloride 0.9% 50 ml @ 100 mls/hr IVPB DAILY@1200 [facility] Rx#:[id number] Oral 300 Tube Feeding 500 100 Output: Urine 100 Emesis 100 Hemodialysis 3000 Other: # Bowel Movements 1 - Exam GENERAL EXAM: Alert, pleasant, 64-year-old female patient, on 5 L oxygen per high flow nasal cannula comfortable in no apparent distress. HEAD: Normocephalic/atraumatic. EYES: Normal reaction of pupils, equal size. Conjunctiva pink, sclera white. NOSE: Clear with pink turbinates. THROAT: No erythema or exudates. NECK: No masses, no JVD, no thyroid enlargement, no adenopathy. CHEST: No chest wall deformity. Symmetrical expansion. Right upper chest hemodialysis permacath is in place LUNGS: Equal air entry with clear breath sounds, limited crackles at bases CVS: Regular rate and rhythm, normal S1 and S2, no gallops, no murmurs, no rubs ABDOMEN: Soft, nontender. No hepatosplenomegaly, normal bowel sounds, no guarding or rigidity. EXTREMITIES: No clubbing, no edema, no cyanosis, 2+ pulses and upper and lower extremities. MUSCULOSKELETAL: Muscle strength and tone normal. SPINE: No scoliosis or deformity SKIN: No rashes CENTRAL NERVOUS SYSTEM: No focal deficits, tone is normal in all 4 extremities. PSYCHIATRIC: Alert and oriented -3. Appropriate affect. Intact judgment and insight. - Labs CBC & Chem 7: 05/17/19 05:40 05/17/19 05:40 Labs: Abnormal Lab Results - Last 24 Hours (Table) 05/16/19 05/16/19 05/16/19 Range/Units 08:08 09:50 12:07 RBC (3.80-5.40) m/uL Hgb (11.4-16.0) gm/dL Hct (34.0-46.0) % MCV (80.0-100.0) fL RDW (11.5-15.5) % Plt Count (150-450) k/uL Macrocytosis Sodium (137-145) mmol/L Potassium (3.5-5.1) mmol/L Chloride (98-107) mmol/L BUN (7-17) mg/dL Creatinine (0.52-1.04) mg/dL Glucose (74-99) mg/dL POC Glucose (mg/dL) 209 H 117 H 114 H (75-99) mg/dL Calcium (8.4-10.2) mg/dL Total Bilirubin (0.2-1.3) mg/dL AST (14-36) U/L ALT (9-52) U/L Albumin (3.5-5.0) g/dL 05/16/19 05/16/19 05/17/19 Range/Units 16:50 20:51 05:40 RBC 2.42 L (3.80-5.40) m/uL Hgb 8.3 L (11.4-16.0) gm/dL Hct 25.6 L (34.0-46.0) % MCV 105.6 H (80.0-100.0) fL RDW 22.3 H (11.5-15.5) % Plt Count 59 L (150-450) k/uL Macrocytosis Marked A Sodium (137-145) mmol/L Potassium (3.5-5.1) mmol/L Chloride (98-107) mmol/L BUN (7-17) mg/dL Creatinine (0.52-1.04) mg/dL Glucose (74-99) mg/dL POC Glucose (mg/dL) 160 H 156 H (75-99) mg/dL Calcium (8.4-10.2) mg/dL Total Bilirubin (0.2-1.3) mg/dL AST (14-36) U/L ALT (9-52) U/L Albumin (3.5-5.0) g/dL 05/17/19 05/17/19 Range/Units 05:40 06:54 RBC (3.80-5.40) m/uL Hgb (11.4-16.0) gm/dL Hct (34.0-46.0) % MCV (80.0-100.0) fL RDW (11.5-15.5) % Plt Count (150-450) k/uL Macrocytosis Sodium 133 L (137-145) mmol/L Potassium 5.7 H (3.5-5.1) mmol/L Chloride 91 L (98-107) mmol/L BUN 81 H (7-17) mg/dL Creatinine 4.80 H (0.52-1.04) mg/dL Glucose 133 H (74-99) mg/dL POC Glucose (mg/dL) 158 H (75-99) mg/dL Calcium 6.6 L (8.4-10.2) mg/dL Total Bilirubin 2.4 H (0.2-1.3) mg/dL AST 100 H (14-36) U/L ALT 101 H (9-52) U/L Albumin 3.4 L (3.5-5.0) g/dL Assessment and Plan Assessment: Assessment: 1. Acute hypoxemic respiratory failure secondary to sepsis, urinary tract infection, and pulmonary edema #2. Acute kidney injury/acute tubular necrosis with hemodialysis, permanent dialysis catheter has been placed on May 14 #3. Gram-positive bacteremia secondary to staph species #4. Enterococcus faecalis urinary tract infection #5. Metastatic breast cancer, possibly lymphangitic carcinomatosis #6. History of obesity #7. History of cerebrovascular accident #8. Chemotherapy induced pancytopenia #9. History of atrial fibrillation RVR, currently in sinus rhythm Plan: The patient was seen and evaluated by Dr. Munguia. Chest x-ray and labs reviewed. She is improving from the pulmonary standpoint. We'll continue with the current medications. Continue to titrate down the FiO2 as tolerated. Extra hemodialysis today. Zofran and Reglan for her nausea. We'll continue to follow. I, the cosigning physician, performed a history & physical examination of the patient. Lungs sounds with faint crackles in the posterior bases. Maintaining good O2 saturations in the 90s on 5 L high flow nasal cannula. I discussed the assessment and plan of care with my nurse practitioner, Roxana Islas. I attest to the above note as dictated by her.
[2019-05-17] MEDS: ONDANSETRON 4 MG/2 ML VIAL IVP PRN ×3 (07:56→20:22)
[2019-05-17] MEDS: AMIODARONE 200 MG TAB PO SCH ×3 (08:07→20:32)
[2019-05-17] MEDS: METOPROLOL SUCCINATE (ER) 50 MG TAB.ER.24H PO SCH (08:07)
[2019-05-17] MEDS ORDERED: DEXTROSE 5% IN WATER 100 ML with AMIODARONE 150 MG IV ONE (08:10)
--- NOTE | 2019-05-17 08:37 | P.PN ---
Subjective Progress Note Date: 05/17/19 This is a 64-year-old female was admitted to the hospital with sepsis, renal failure and intermittent atrial fibrillation with rapid ventricular response. Patient was put on IV Cardizem and also IV amiodarone. Patient has difficulty taking medications by mouth. Patient is back in sinus rhythm and maintaining sinus rhythm. We are switching to by mouth amiodarone and metoprolol and discontinue IV Cardizem and amiodarone. Otherwise patient is cardiac-mendoza stable. Patient does have BiPAP machine. She is also on dialysis. Her creatinine is in the range of 4-5 with a BUN of 80. We will continue with current medical therapy except changing to by mouth medications. This 64-year-old female with history of metastatic breast cancer, status post chemotherapy and also acute renal failure currently on dialysis. Patient had bouts of atrial fibrillation but is maintaining sinus rhythm. Patient is still unable to swallow and has been taking only ice chips. It is not clear if she is able to swallow his oral medications. Patient complains of being short of breath. Clinically does have some wheezing and rhonchi. Chest x-ray shows some residual infiltrates consistent with possible CHF. She is on dialysis and has no urinary output. Her creatinine is in the range of 4.5. Patient has pancyto penia mostly with anemia and thrombocytopenia. From Cardec standpoint we'll continue with oral beta linda and amiodarone. If necessary, we'll may have to switch to IV medication. We'll follow. Prognosis is guarded. 05/14/2019: This patient is cardiac-mendoza stable. Maintaining sinus rhythm. A ble to take oral medication including beta linda and also amiodarone. No arrhythmias are detected. Rest of the management as for nephrology. We'll follow. 05/15/2019: The patient is relatively stable. Maintaining sinus rhythm seemed to be able to take medication by mouth. No dialysis today. Chest x-ray shows some chronic congestive heart failure changes. Patient activity to be increased. From Cardec standpoint, patient is stable. Her creatinine is still in the range of 4-5. 05/16/2019: Patient is a relatively stable. There is some improvement on the chest x-ray. Denies any chest pain. Maintaining sinus rhythm. Undergoing dialysis today. Patient is able to swallow and continues today the pills. We'll continue current medical therapy. Increase activity as tolerated. 05/17/2019: This patient went back into atrial fibrillation this morning with a rapid ventricular response. Patient has been nauseated since yesterday afternoon. It is not clear if he has been retaining her water medications. We'll going to give her IV bolus amiodarone and if necessary, had maintained on a drip. Denies any chest pain or shortness of breath. Chest x-ray continues to show findings of CHF. Patient is on dialysis. Patient started to put some urine output. Lungs show diminished breath sounds at bases. Heart is irregular. Objective - Vital Signs Vital signs: Vital Signs Temp 97.8 F 05/17/19 04:00 Pulse 73 05/17/19 07:00 Resp 20 05/17/19 07:00 BP 128/54 05/17/19 07:00 Pulse Ox 94 L 05/17/19 07:00 Intake & Output 05/16/19 05/17/19 05/17/19 18:59 06:59 18:59 Intake Total 550 400 Output Total 3000 200 Balance -2450 200 Weight 138.9 kg 133.5 kg Intake: Intake, IV Titration 50 Amount Cefepime 1 gm In Sodium 50 Chloride 0.9% 50 ml @ 100 mls/hr IVPB DAILY@1200 [facility] Rx#:[id number] Oral 300 Tube Feeding 500 100 Output: Urine 100 Emesis 100 Hemodialysis 3000 Other: # Bowel Movements 1 - Exam GENERAL EXAM: Patient is alert and oriented and doesn't appear to be in any acute distress. Patient is on BiPAP HEENT: Normocephalic. Normal reaction of pupils, equal size, normal range of extraocular motion. No erythema or exudates in the throat. NECK: No masses, no nuchal rigidity. CHEST: No chest wall deformity. LUNGS: Expiratory wheezes. Diminished breath sounds at bases HEART: S1 and S2 normal. Irregular heart sounds ABDOMEN: No hepatosplenomegaly, normal bowel sounds, no guarding or rigidity. SKIN: No rashes CENTRAL NERVOUS SYSTEM: No focal deficits. EXTREMITIES: No cyanosis, clubbing or edema. - Labs CBC & Chem 7: 05/17/19 05:40 05/17/19 05:40 Labs: Abnormal Lab Results - Last 24 Hours (Table) 05/16/19 05/16/19 05/16/19 Range/Units 09:50 12:07 16:50 RBC (3.80-5.40) m/uL Hgb (11.4-16.0) gm/dL Hct (34.0-46.0) % MCV (80.0-100.0) fL RDW (11.5-15.5) % Plt Count (150-450) k/uL Macrocytosis Sodium (137-145) mmol/L Potassium (3.5-5.1) mmol/L Chloride (98-107) mmol/L BUN (7-17) mg/dL Creatinine (0.52-1.04) mg/dL Glucose (74-99) mg/dL POC Glucose (mg/dL) 117 H 114 H 160 H (75-99) mg/dL Calcium (8.4-10.2) mg/dL Total Bilirubin (0.2-1.3) mg/dL AST (14-36) U/L ALT (9-52) U/L Albumin (3.5-5.0) g/dL 05/16/19 05/17/19 05/17/19 Range/Units 20:51 05:40 05:40 RBC 2.42 L (3.80-5.40) m/uL Hgb 8.3 L (11.4-16.0) gm/dL Hct 25.6 L (34.0-46.0) % MCV 105.6 H (80.0-100.0) fL RDW 22.3 H (11.5-15.5) % Plt Count 59 L (150-450) k/uL Macrocytosis Marked A Sodium 133 L (137-145) mmol/L Potassium 5.7 H (3.5-5.1) mmol/L Chloride 91 L (98-107) mmol/L BUN 81 H (7-17) mg/dL Creatinine 4.80 H (0.52-1.04) mg/dL Glucose 133 H (74-99) mg/dL POC Glucose (mg/dL) 156 H (75-99) mg/dL Calcium 6.6 L (8.4-10.2) mg/dL Total Bilirubin 2.4 H (0.2-1.3) mg/dL AST 100 H (14-36) U/L ALT 101 H (9-52) U/L Albumin 3.4 L (3.5-5.0) g/dL 05/17/19 Range/Units 06:54 RBC (3.80-5.40) m/uL Hgb (11.4-16.0) gm/dL Hct (34.0-46.0) % MCV (80.0-100.0) fL RDW (11.5-15.5) % Plt Count (150-450) k/uL Macrocytosis Sodium (137-145) mmol/L Potassium (3.5-5.1) mmol/L Chloride (98-107) mmol/L BUN (7-17) mg/dL Creatinine (0.52-1.04) mg/dL Glucose (74-99) mg/dL POC Glucose (mg/dL) 158 H (75-99) mg/dL Calcium (8.4-10.2) mg/dL Total Bilirubin (0.2-1.3) mg/dL AST (14-36) U/L ALT (9-52) U/L Albumin (3.5-5.0) g/dL Assessment and Plan (1) Paroxysmal atrial fibrillation Current Visit: Yes Status: Acute Code(s): I48.0 - PAROXYSMAL ATRIAL FIBRILLATION SNOMED Code(s): 142645159 (2) Acute renal failure Current Visit: Yes Status: Acute Priority: High Code(s): N17.9 - ACUTE KIDNEY FAILURE, UNSPECIFIED SNOMED Code(s): 98318443 (3) Metastatic breast carcinoma Current Visit: Yes Status: Chronic Priority: Medium Code(s): C50.919 - MALIGNANT NEOPLASM OF UNSP SITE OF UNSPECIFIED FEMALE BREAST SNOMED Code(s): 715976260 Plan: Patient has a recurrence of atrial fibrillation. We'll give her IV bolus of amiodarone and if necessary will start her on drip. Further recommendations depend upon the clinical course
[2019-05-17] MEDS: GABAPENTIN 300 MG CAP PO SCH (09:52)
[2019-05-17] MEDS: SODIUM BICARBONATE TAB 650 MG TAB PO SCH ×2 (09:52→20:35)
[2019-05-17] MEDS: FLUTICASONE 50MCG/SPRAY NASAL 16GM EA NOSTRIL SCH (09:53)
[2019-05-17 10:11] LABS: Lymphocytes # (M) 0.26 k/uL (1.0-4.8); Monocytes # (M) 0.53 k/uL (0-1.0); Myelocytes # (M) 0.09 k/uL (0); Myelocytes % 1 %; Neutrophils % (M) 91 %; Nucleated Red Blood Cells 2 /100 WBC (0-0); Total Cells Counted 200; WBC 8.8 k/uL (3.8-10.6)
[2019-05-17] MEDS: METOPROLOL TARTRATE 5 MG/5 ML VIAL IVP PRN (10:30)
--- NOTE | 2019-05-17 11:28 | P.PN ---
Subjective Progress Note Date: 05/17/19 Principal diagnosis: Ac Resp Failure; PNA/ARDS Ac Renal Failure/ HD Neutropenia/ Bactremia Pancytopenia; Chemo induced 05/16/2019 Patient is seen in follow-up in the intensive care unit, she is awake and alert, sitting up in the bedside chair; patient denies any specific complaints at this time she is currently down to 12 days per high flow nasal cannula, pulse ox is 95%, she is having her hemodialysis today, no running IVs, her breathing is improvin g, no complaints of dyspnea, no wheezing, no cough, no significant congestion, she is in -2500 mL fluid balance. Today's labs have been reviewed, showing white blood cell count of 11.4, hemoglobin of 8.7, serum sodium of 132, potassium 6.1, chloride was 93, CO2 is 14, calcium was 6.5. No nausea vomiting or diarrhea. Remains anuric. No Fever or chills. Today's chest x-ray has been reviewed showing evidence of pulmonary venous congestion and interstitial edema; improving. 05/17/2019 Patient is seen in follow-up in the intensive care unit. She is currently resting comfortably in bed. Awake and alert in no acute distress. She is down to 5 L high flow nasal cannula and maintaining O2 saturations in the 90s. She's been afebrile. Hemodynamically stable. No IVs. She is receiving extra hemodialysis today Labs including potassium 5.7. Creatinine 4.80. White count 9.0. Hemoglobin 8.3. Platelet count 59,000. AST 100, ALT 101. Blood cultures reveal no casandra wth. Sputum culture reveals no growth. She is having some issues with nausea and vomiting and is on Zofran and Reglan. We will add Protonix 40 mg IV every 12 hours She is also maintained on DuoNeb inhalations, Pulmicort and Perforomist inhalations, IV Solu-Medrol, Singulair. X-ray reveals mild cardiomegaly with some mild vascular congestion without deisy edema. No definite pleural effusions present. Objective - Vital Signs Vital signs: Vital Signs Temp 97.8 F 05/17/19 04:00 Pulse 73 05/17/19 07:00 Resp 20 05/17/19 07:00 BP 128/54 05/17/19 07:00 Pulse Ox 94 L 05/17/19 07:00 Intake & Output 05/16/19 05/17/19 05/17/19 18:59 06:59 18:59 Intake Total 550 400 Output Total 3000 200 Balance -2450 200 Weight 138.9 kg 133.5 kg Intake: Intake, IV Titration 50 Amount Cefepime 1 gm In Sodium 50 Chloride 0.9% 50 ml @ 100 mls/hr IVPB DAILY@1200 [facility] Rx#:[id number] Oral 300 Tube Feeding 500 100 Output: Urine 100 Emesis 100 Hemodialysis 3000 Other: # Bowel Movements 1 - Exam GENERAL EXAM: Alert, pleasant, 64-year-old white female, on told his of oxygen per high flow nasal cannula comfortable in no apparent distress. HEAD: Normocephalic/atraumatic. EYES: Normal reaction of pupils, equal size. Conjunctiva pink, sclera white. NOSE: Clear with pink turbinates. THROAT: No erythema or exudates. NECK: No masses, no JVD, no thyroid enlargement, no adenopathy. CHEST: No chest wall deformity. Symmetrical expansion. Right upper chest hemodialysis permacath is in place LUNGS: Equal air entry with clear breath sounds, limited crackles at bases CVS: Regular rate and rhythm, normal S1 and S2, no gallops, no murmurs, no rubs ABDOMEN: Soft, nontender. No hepatosplenomegaly, normal bowel sounds, no guarding or rigidity. EXTREMITIES: No clubbing, no edema, no cyanosis, 2+ pulses and upper and lower extremities. MUSCULOSKELETAL: Muscle strength and tone normal. - Labs CBC & Chem 7: 05/17/19 05:40 05/17/19 05:40 Labs: Abnormal Lab Results - Last 24 Hours (Table) 05/16/19 05/16/19 05/16/19 Range/Units 06:45 08:08 09:50 RBC (3.80-5.40) m/uL Hgb (11.4-16.0) gm/dL Hct (34.0-46.0) % MCV (80.0-100.0) fL RDW (11.5-15.5) % Plt Count (150-450) k/uL Macrocytosis Sodium (137-145) mmol/L Potassium 6.1 H* (3.5-5.1) mmol/L Chloride (98-107) mmol/L BUN 112 H* (7-17) mg/dL Creatinine 6.40 H (0.52-1.04) mg/dL Glucose (74-99) mg/dL POC Glucose (mg/dL) 209 H 117 H (75-99) mg/dL Calcium (8.4-10.2) mg/dL Total Bilirubin (0.2-1.3) mg/dL AST (14-36) U/L ALT (9-52) U/L Albumin (3.5-5.0) g/dL 05/16/19 05/16/19 05/16/19 Range/Units 12:07 16:50 20:51 RBC (3.80-5.40) m/uL Hgb (11.4-16.0) gm/dL Hct (34.0-46.0) % MCV (80.0-100.0) fL RDW (11.5-15.5) % Plt Count (150-450) k/uL Macrocytosis Sodium (137-145) mmol/L Potassium (3.5-5.1) mmol/L Chloride (98-107) mmol/L BUN (7-17) mg/dL Creatinine (0.52-1.04) mg/dL Glucose (74-99) mg/dL POC Glucose (mg/dL) 114 H 160 H 156 H (75-99) mg/dL Calcium (8.4-10.2) mg/dL Total Bilirubin (0.2-1.3) mg/dL AST (14-36) U/L ALT (9-52) U/L Albumin (3.5-5.0) g/dL 05/17/19 05/17/19 05/17/19 Range/Units 05:40 05:40 06:54 RBC 2.42 L (3.80-5.40) m/uL Hgb 8.3 L (11.4-16.0) gm/dL Hct 25.6 L (34.0-46.0) % MCV 105.6 H (80.0-100.0) fL RDW 22.3 H (11.5-15.5) % Plt Count 59 L (150-450) k/uL Macrocytosis Marked A Sodium 133 L (137-145) mmol/L Potassium 5.7 H (3.5-5.1) mmol/L Chloride 91 L (98-107) mmol/L BUN 81 H (7-17) mg/dL Creatinine 4.80 H (0.52-1.04) mg/dL Glucose 133 H (74-99) mg/dL POC Glucose (mg/dL) 158 H (75-99) mg/dL Calcium 6.6 L (8.4-10.2) mg/dL Total Bilirubin 2.4 H (0.2-1.3) mg/dL AST 100 H (14-36) U/L ALT 101 H (9-52) U/L Albumin 3.4 L (3.5-5.0) g/dL Assessment and Plan Assessment: 1. Acute hypoxic respiratory failure; multifactorial; - Acute right lower lobe pneumonia - ARDS - improving with current treatment with DuoNeb nebulizer treatments 4 times a day and when necessary; Pulmicort nebulizer twice a day; Perforomist 20 MCG twice a day; Solu-Medrol 40 mg IV every 6 hours; continue with IV antibiotics in form of cefepime 1 g IV daily; patient remains on high flow oxygen with plans to continue with gradual weaning as tolerated 2. Acute renal injury/ ATN; patient has permanent dialysis catheter and remains on hemodialysis 3. Gram-positive bacteremia; 4. UTI; Enterococcus faecalis 5. Acute on chronic systolic CHF; ejection fraction at 45-50%; stable; cardiology is following 6. Chemotherapy-induced pancytopenia; hematology is following; chemotherapy remains on hold; blood counts are stable 7. Atrial fibrillation with RVR; currently normal sinus rhythm; remains on oral amiodarone and rate controlled on metoprolol 50 mg by mouth daily along with 2.5 mg IV every 6 hours when necessary 8. DVT prophylaxis; SCDs/ increase activity with physical therapy CODE STATUS; full code Time with Patient: Greater than 30
--- NOTE | 2019-05-17 11:29 | P.PN ---
Subjective Progress Note Date: 05/17/19 Principal diagnosis: This is 64-year-old female with acute kidney injury, ATN secondary to vancomycin. Currently on dialysis, on Sunday and had dialysis today Sunday. She is starting to make small amounts of urine. She complains of nausea vomiting since yesterday. She also has poor appetite. No fever chills. She is in atrial fibrillation in the monitor. Objective - Vital Signs Vital signs: Vital Signs Temp 97.3 F L 05/17/19 10:25 Pulse 137 H 05/17/19 11:13 Resp 21 05/17/19 11:00 BP 79/59 05/17/19 11:00 Pulse Ox 94 L 05/17/19 11:00 Intake & Output 05/16/19 05/17/19 05/17/19 18:59 06:59 18:59 Intake Total 550 400 180 Output Total 3000 200 300 Balance -2450 200 -120 Weight 138.9 kg 133.5 kg Intake: IV 30 0.9 NS 30 Intake, IV Titration 50 Amount Cefepime 1 gm In Sodium 50 Chloride 0.9% 50 ml @ 100 mls/hr IVPB DAILY@1200 [facility] Rx#:[id number] Oral 300 150 Tube Feeding 500 100 Output: Urine 100 0 Emesis 100 100 Hemodialysis 3000 100 Other 100 Other: # Voids 0 # Bowel Movements 1 Ganglion she is awake alert oriented comfortable. HEENT exam no JVP neck is supple no facial asymmetry Lungs are significant for an occasional coarse crackle at bases. Good air entry bilaterally Heart sounds are unremarkable. She is in atrial fibrillation Abdomen soft nontender obese Extremity exam was trace edema Neurologically awake alert oriented - Labs CBC & Chem 7: 05/17/19 05:40 05/17/19 05:40 Labs: Abnormal Lab Results - Last 24 Hours (Table) 05/16/19 05/16/19 05/16/19 Range/Units 12:07 16:50 20:51 RBC (3.80-5.40) m/uL Hgb (11.4-16.0) gm/dL Hct (34.0-46.0) % MCV (80.0-100.0) fL RDW (11.5-15.5) % Plt Count (150-450) k/uL Neutrophils # (Manual) (1.3-7.7) k/uL Lymphocytes # (Manual) (1.0-4.8) k/uL Myelocytes # (Manual) (0) k/uL Nucleated RBCs (0-0) /100 WBC Macrocytosis Sodium (137-145) mmol/L Potassium (3.5-5.1) mmol/L Chloride (98-107) mmol/L BUN (7-17) mg/dL Creatinine (0.52-1.04) mg/dL Glucose (74-99) mg/dL POC Glucose (mg/dL) 114 H 160 H 156 H (75-99) mg/dL Calcium (8.4-10.2) mg/dL Total Bilirubin (0.2-1.3) mg/dL AST (14-36) U/L ALT (9-52) U/L Albumin (3.5-5.0) g/dL 05/17/19 05/17/19 05/17/19 Range/Units 05:40 05:40 06:54 RBC 2.42 L (3.80-5.40) m/uL Hgb 8.3 L (11.4-16.0) gm/dL Hct 25.6 L (34.0-46.0) % MCV 105.6 H (80.0-100.0) fL RDW 22.3 H (11.5-15.5) % Plt Count 59 L (150-450) k/uL Neutrophils # (Manual) 8.01 H (1.3-7.7) k/uL Lymphocytes # (Manual) 0.26 L (1.0-4.8) k/uL Myelocytes # (Manual) 0.09 H (0) k/uL Nucleated RBCs 2 H (0-0) /100 WBC Macrocytosis Marked A Sodium 133 L (137-145) mmol/L Potassium 5.7 H (3.5-5.1) mmol/L Chloride 91 L (98-107) mmol/L BUN 81 H (7-17) mg/dL Creatinine 4.80 H (0.52-1.04) mg/dL Glucose 133 H (74-99) mg/dL POC Glucose (mg/dL) 158 H (75-99) mg/dL Calcium 6.6 L (8.4-10.2) mg/dL Total Bilirubin 2.4 H (0.2-1.3) mg/dL AST 100 H (14-36) U/L ALT 101 H (9-52) U/L Albumin 3.4 L (3.5-5.0) g/dL Assessment and Plan Assessment: Impression 1. Acute kidney injury, vancomycin associated toxicity. Hemodialysis dependent. Patient's currently on dialysis and has minimal urine output. She was dialyzed today. She has a permacath in the right 2. Congestive heart failure, significantly improved, chest x-ray shows minimal CHF 3. On BiPAP 4. Staph bacteremia repeat negative cultures 5. Atrial fibrillation, rate controlled 6. Enterococcus faecalis urinary tract infection 7. Anemia with hemoglobin 8.3 8. Mild hyperkalemia potassium is 5.7, secondary to improve postdialysis 9. Mild acidosis, improved bicarb is 29. On sodium bicarb 1300 twice a day bicarb is 21. Recommendation 1. Maintain dialysis schedule next dialysis will be possibly Sunday or Sunday unless her urine output picks up and her creatinine starts to come down. 2. Reduce the bicarb to 350 twice a day. 3. Watch urine output and creatinine. 4. Start darbepoetin 14 g every 72
[2019-05-17 11:48] LABS: Glucose,Whole Blood 164 mg/dL (75-99)
[2019-05-17] MEDS: ASPIRIN 81 MG PO SCH (11:50)
[2019-05-17] MEDS: PANTOPRAZOLE 40 MG/10 ML VIAL IVP SCH ×2 (11:58→20:32)
[2019-05-17] MEDS ORDERED: DARBEPOETIN ALFA 40 MCG/0.4 ML SYRINGE SQ SCH (12:00)
[2019-05-17] MEDS: HYDROcodone/APAP 5-325MG 1 EACH TAB PO PRN (14:59)
[2019-05-17 16:57] LABS: Glucose,Whole Blood 136 mg/dL (75-99)
[2019-05-17 20:30] LABS: Glucose,Whole Blood 113 mg/dL (75-99)
[2019-05-17] MEDS: SENNOSIDES-DOCUSATE SODIUM 1 EACH TAB PO SCH (20:32)
[2019-05-17] MEDS: ATORVASTATIN 40 MG TAB PO SCH (20:32)
[2019-05-17] MEDS: MELATONIN 3 MG TABLET PO SCH (23:53)
[2019-05-17] MEDS: ALPRAZolam 0.25 MG TAB PO PRN (23:53)
--- NOTE | 2019-05-18 06:29 | XR ---
EXAMINATION TYPE: XR chest 1V DATE OF EXAM: 05/18/2019 HISTORY: SOB. REFERENCE: Previous study dated 05/17/2019. FINDINGS: There is a large-bore, double-lumen catheter in place via a right internal jugular approach . Its tip is at the cavoatrial junction. The heart is mildly enlarged. Lungs appear clear. Pleural spaces are clear. IMPRESSION: MILD CARDIOMEGALY.
[2019-05-18] MEDS: SUCRALFATE 1 GM TAB PO SCH ×4 (06:50→21:06)
[2019-05-18] MEDS: METOCLOPRAMIDE 5 MG/ML 2 ML VIAL IVP SCH ×3 (06:50→18:19)
[2019-05-18] MEDS: SALT AND SODA MOUTHWASH 1,000 ML PO SCH ×4 (06:50→20:55)
[2019-05-18] MEDS: INSULIN ASPART (NovoLOG) 100 UNIT/ML VIAL SQ SCH ×4 (06:50→20:52)
[2019-05-18 06:53] LABS: Glucose,Whole Blood 90 mg/dL (75-99)
[2019-05-18 07:23] LABS: Calcium 6.7 mg/dL (8.4-10.2); Potassium 4.2 mmol/L (3.5-5.1)
[2019-05-18] MEDS: IPRATROPIUM-ALBUTEROL 3 ML NEB INHALATION SCH ×4 (07:58→19:56)
[2019-05-18] MEDS: FORMOTEROL FUMARATE 20 MCG/2 ML NEBU INHALATION SCH ×2 (07:58→19:56)
[2019-05-18] MEDS: BUDESONIDE 1 MG/2 ML NEBU INHALATION SCH ×2 (07:58→19:56)
[2019-05-18 08:00] LABS: Anisocytosis Moderate; HCT 25.1 % (34.0-46.0); HGB 8.2 gm/dL (11.4-16.0); Hypochromasia Slight; MCH 35.3 pg (25.0-35.0); MCHC 32.6 g/dL (31.0-37.0); MCV 108.4 fL (80.0-100.0); Macrocytosis Marked; Mean Platelet Volume 10.6; RBC 2.31 m/uL (3.80-5.40)
[2019-05-18 08:01] LABS: Platelet Count 55 k/uL (150-450)
--- NOTE | 2019-05-18 08:08 | PN ---
PROGRESS NOTE DATE OF SERVICE: May 18, 2019 This is a 64-year-old female who was admitted back on April 30. The patient has a history of multiple medical problems including acute hypoxemic respiratory failure secondary to pulmonary edema, urinary tract infection and sepsis, acute kidney injury/ATN, status post permanent dialysis catheter being placed on May 14, gram- positive bacteremia secondary to Staph species, Enterococcus faecalis urinary tract infection, metastatic breast cancer and possible lymphangitic carcinomatosis, obesity, CVA, chemotherapy-induced pancytopenia, and atrial fibrillation with RVR, currently in normal sinus rhythm. Overall, the patient is doing much better. She has been weaned down to 5 L nasal cannula. She is not receiving any IV fluids. She did have hemodialysis on May 17 for hyperkalemia. She is a 3 [facility] overflow patient. She is on Sunday, Sunday, Sunday hemodialysis patient as we speak. Currently, the patient is feeling much better. Her breathing is much improved. She still suffers from the nausea. PHYSICAL EXAMINATION: VITAL SIGNS: Current vital signs are reviewed. Temperature 98, heart rate 73, respiratory rate 18, blood pressure 120/59 mean 79 and saturations between 93 and 96%. GENERAL: Appears in no acute distress. HEENT examination is grossly unremarkable. Mucous membranes are moist. No oral lesions. NECK: Supple. Full range of motion. No adenopathy. Neck veins are flat. CARDIOVASCULAR examination reveals regular rhythm and rate. Heart rate 73 beats per minute. S1, S2 normal. Heart sounds are distant. No murmur. LUNGS: A few scattered rhonchi. No wheezes or crackles. Breath sounds are equal bilaterally. ABDOMEN: Obese. Bowel sounds are heard. EXTREMITIES are intact. Minimal edema. SKIN: Without rash. NEUROLOGIC: Examination is nonfocal. Microbiologic studies include Enterococcus faecalis urine culture back on April 30 and Staph Lugdunensis bacteremia on April 30. LABS: Reviewed. There is nothing new from today. Chest x-ray from May 18 shows only mild cardiomegaly. Chest x-ray has improved. Medications are reviewed. Currently, the patient is on appropriate medications. ASSESSMENT: 1. Acute hypoxemic respiratory failure secondary to Staph sepsis, Enterococcus faecalis urinary tract infection, and pulmonary edema. 2. Acute kidney injury/acute tubular necrosis, with ongoing hemodialysis, and permanent dialysis catheter placement on May 14. 3. Staph species bacteremia. 4. Enterococcus faecalis urinary tract infection/urosepsis. 5. 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 6. History of obesity. 7. History of cerebrovascular accident. 8. Chemotherapy-induced pancytopenia. 9. Atrial fibrillation/RVR, currently in normal sinus rhythm. PLAN: Overall, the patient has moved in a positive direction since I started seeing her on Sunday. Her respiratory status is dramatically improved. We got her atrial fibrillation under control. Her blood pressure is much more stable. She is undergoing hemodialysis 3 times a week. She did have additional episode hemodialysis yesterday because of hyperkalemia. She does complain of a bit of nausea. All in all, though she has shown significant improvement. She has become a [facility] patient. MMODL / IJN: [id number] /
[2019-05-18] MEDS: ONDANSETRON 4 MG/2 ML VIAL IVP PRN ×2 (08:21→16:44)
[2019-05-18] MEDS: PANTOPRAZOLE 40 MG/10 ML VIAL IVP SCH ×2 (08:21→21:04)
[2019-05-18 08:22] LABS: Band Neutrophils % 1 %; Eosinophils # (M) 0.09 k/uL (0-0.7); Lymphocytes # (M) 0.34 k/uL (1.0-4.8); Metamyelocytes # (M) 0.09 k/uL (0); Metamyelocytes % 1 %; Monocytes # (M) 1.02 k/uL (0-1.0); Neutrophils % (M) 83 %; Nucleated Red Blood Cells 3 /100 WBC (0-0); Total Cells Counted 200; WBC 8.5 k/uL (3.8-10.6)
[2019-05-18 08:25] LABS: Large Platelets Present; Polychromasia Present
[2019-05-18] MEDS: AMIODARONE 200 MG TAB PO SCH ×3 (09:14→21:02)
[2019-05-18] MEDS: SODIUM BICARBONATE TAB 650 MG TAB PO SCH ×2 (09:14→21:06)
[2019-05-18] MEDS: ASPIRIN 81 MG PO SCH (09:14)
[2019-05-18] MEDS: FLUTICASONE 50MCG/SPRAY NASAL 16GM EA NOSTRIL SCH (09:15)
[2019-05-18] MEDS: METOPROLOL SUCCINATE (ER) 50 MG TAB.ER.24H PO SCH (09:15)
[2019-05-18] MEDS: GABAPENTIN 300 MG CAP PO SCH (09:15)
--- NOTE | 2019-05-18 09:17 | P.PN ---
Subjective Progress Note Date: 05/18/19 This is a 64-year-old female was admitted to the hospital with sepsis, renal failure and intermittent atrial fibrillation with rapid ventricular response. Patient was put on IV Cardizem and also IV amiodarone. Patient has difficulty taking medications by mouth. Patient is back in sinus rhythm and maintaining sinus rhythm. We are switching to by mouth amiodarone and metoprolol and discontinue IV Cardizem and amiodarone. Otherwise patient is cardiac-mendoza stable. Patient does have BiPAP machine. She is also on dialysis. Her creatinine is in the range of 4-5 with a BUN of 80. We will continue with current medical therapy except changing to by mouth medications. This 64-year-old female with history of metastatic breast cancer, status post chemotherapy and also acute renal failure currently on dialysis. Patient had bouts of atrial fibrillation but is maintaining sinus rhythm. Patient is still unable to swallow and has been taking only ice chips. It is not clear if she is able to swallow his oral medications. Patient complains of being short of breath. Clinically does have some wheezing and rhonchi. Chest x-ray shows some residual infiltrates consistent with possible CHF. She is on dialysis and has no urinary output. Her creatinine is in the range of 4.5. Patient has pancyto penia mostly with anemia and thrombocytopenia. From Cardec standpoint we'll continue with oral beta linda and amiodarone. If necessary, we'll may have to switch to IV medication. We'll follow. Prognosis is guarded. 05/14/2019: This patient is cardiac-mendoza stable. Maintaining sinus rhythm. A ble to take oral medication including beta linda and also amiodarone. No arrhythmias are detected. Rest of the management as for nephrology. We'll follow. 05/15/2019: The patient is relatively stable. Maintaining sinus rhythm seemed to be able to take medication by mouth. No dialysis today. Chest x-ray shows some chronic congestive heart failure changes. Patient activity to be increased. From Cardec standpoint, patient is stable. Her creatinine is still in the range of 4-5. 05/16/2019: Patient is a relatively stable. There is some improvement on the chest x-ray. Denies any chest pain. Maintaining sinus rhythm. Undergoing dialysis today. Patient is able to swallow and continues today the pills. We'll continue current medical therapy. Increase activity as tolerated. 05/17/2019: This patient went back into atrial fibrillation this morning with a rapid ventricular response. Patient has been nauseated since yesterday afternoon. It is not clear if he has been retaining her water medications. We'll going to give her IV bolus amiodarone and if necessary, had maintained on a drip. Denies any chest pain or shortness of breath. Chest x-ray continues to show findings of CHF. Patient is on dialysis. Patient started to put some urine output. Lungs show diminished breath sounds at bases. Heart is irregular. 05/18/2019: Patient is back in sinus rhythm. Still nauseated. Denies any chest pain or shortness of breath. She is on amiodarone 200 mg by mouth 3 times a day. BACK the dose to 200 mg by mouth twice a day from tomorrow. Patient doesn't have any urination. No dialysis today. Rest of the management as for the consultants Objective - Vital Signs Vital signs: Vital Signs Temp 97.7 F 05/18/19 08:00 Pulse 71 05/18/19 08:00 Resp 15 05/18/19 08:00 BP 130/66 05/18/19 08:00 Pulse Ox 92 L 05/18/19 08:00 Intake & Output 05/17/19 05/18/19 05/18/19 18:59 06:59 18:59 Intake Total 690 0 Output Total 500 0 Balance 190 0 Weight 133.7 kg Intake: IV 40 0 0.9 NS 40 0 Oral 650 Output: Urine 0 0 Emesis 300 Hemodialysis 100 Other 100 Other: Voiding Method Bedpan # Voids 0 - Exam GENERAL EXAM: Patient is alert and oriented and doesn't appear to be in any acute distress. Patient is on BiPAP HEENT: Normocephalic. Normal reaction of pupils, equal size, normal range of extraocular motion. No erythema or exudates in the throat. NECK: No masses, no nuchal rigidity. CHEST: No chest wall deformity. LUNGS: Expiratory wheezes. Diminished breath sounds at bases HEART: S1 and S2 normal. Irregular heart sounds ABDOMEN: No hepatosplenomegaly, normal bowel sounds, no guarding or rigidity. SKIN: No rashes CENTRAL NERVOUS SYSTEM: No focal deficits. EXTREMITIES: No cyanosis, clubbing or edema. - Labs CBC & Chem 7: 05/18/19 06:35 05/18/19 06:35 Labs: Abnormal Lab Results - Last 24 Hours (Table) 05/17/19 05/17/19 05/17/19 Range/Units 05:40 11:35 16:46 RBC (3.80-5.40) m/uL Hgb (11.4-16.0) gm/dL Hct (34.0-46.0) % MCV (80.0-100.0) fL MCH (25.0-35.0) pg RDW (11.5-15.5) % Plt Count (150-450) k/uL Neutrophils # (Manual) 8.01 H (1.3-7.7) k/uL Lymphocytes # (Manual) 0.26 L (1.0-4.8) k/uL Monocytes # (Manual) (0-1.0) k/uL Metamyelocytes # (Man) (0) k/uL Myelocytes # (Manual) 0.09 H (0) k/uL Nucleated RBCs 2 H (0-0) /100 WBC Macrocytosis Sodium (137-145) mmol/L Chloride (98-107) mmol/L BUN (7-17) mg/dL Creatinine (0.52-1.04) mg/dL POC Glucose (mg/dL) 164 H 136 H (75-99) mg/dL Calcium (8.4-10.2) mg/dL 05/17/19 05/18/19 05/18/19 Range/Units 20:18 06:35 06:35 RBC 2.31 L (3.80-5.40) m/uL Hgb 8.2 L (11.4-16.0) gm/dL Hct 25.1 L (34.0-46.0) % MCV 108.4 H (80.0-100.0) fL MCH 35.3 H (25.0-35.0) pg RDW 23.0 H (11.5-15.5) % Plt Count 55 L (150-450) k/uL Neutrophils # (Manual) (1.3-7.7) k/uL Lymphocytes # (Manual) 0.34 L (1.0-4.8) k/uL Monocytes # (Manual) 1.02 H (0-1.0) k/uL Metamyelocytes # (Man) 0.09 H (0) k/uL Myelocytes # (Manual) (0) k/uL Nucleated RBCs 3 H (0-0) /100 WBC Macrocytosis Marked A Sodium 136 L (137-145) mmol/L Chloride 97 L (98-107) mmol/L BUN 67 H (7-17) mg/dL Creatinine 4.75 H (0.52-1.04) mg/dL POC Glucose (mg/dL) 113 H (75-99) mg/dL Calcium 6.7 L (8.4-10.2) mg/dL Assessment and Plan (1) Paroxysmal atrial fibrillation Current Visit: Yes Status: Acute Code(s): I48.0 - PAROXYSMAL ATRIAL FIBRILLATION SNOMED Code(s): 003813239 (2) Acute renal failure Current Visit: Yes Status: Acute Priority: High Code(s): N17.9 - ACUTE KIDNEY FAILURE, UNSPECIFIED SNOMED Code(s): 19605319 (3) Metastatic breast carcinoma Current Visit: Yes Status: Chronic Priority: Medium Code(s): C50.919 - MALIGNANT NEOPLASM OF UNSP SITE OF UNSPECIFIED FEMALE BREAST SNOMED Code(s): 668637846 Plan: Patient is back in sinus rhythm. We'll continue current medical therapy except cut back the amiodarone to 200 mg by mouth daily from tomorrow
--- NOTE | 2019-05-18 10:23 | P.PN ---
Subjective Progress Note Date: 05/18/19 Principal diagnosis: Ac Resp Failure; PNA/ARDS Ac Renal Failure/ HD Neutropenia/ Bactremia Pancytopenia; Chemo induced 05/16/2019 Patient is seen in follow-up in the intensive care unit, she is awake and alert, sitting up in the bedside chair; patient denies any specific complaints at this time she is currently down to 12 days per high flow nasal cannula, pulse ox is 95%, she is having her hemodialysis today, no running IVs, her breathing is improvin g, no complaints of dyspnea, no wheezing, no cough, no significant congestion, she is in -2500 mL fluid balance. Today's labs have been reviewed, showing white blood cell count of 11.4, hemoglobin of 8.7, serum sodium of 132, potassium 6.1, chloride was 93, CO2 is 14, calcium was 6.5. No nausea vomiting or diarrhea. Remains anuric. No Fever or chills. Today's chest x-ray has been reviewed showing evidence of pulmonary venous congestion and interstitial edema; improving. 05/17/2019 Patient is seen in follow-up in the intensive care unit. She is currently resting comfortably in bed. Awake and alert in no acute distress. She is down to 5 L high flow nasal cannula and maintaining O2 saturations in the 90s. She's been afebrile. Hemodynamically stable. No IVs. She is receiving extra hemodialysis today Labs including potassium 5.7. Creatinine 4.80. White count 9.0. Hemoglobin 8.3. Platelet count 59,000. AST 100, ALT 101. Blood cultures reveal no casandra wth. Sputum culture reveals no growth. She is having some issues with nausea and vomiting and is on Zofran and Reglan. We will add Protonix 40 mg IV every 12 hours She is also maintained on DuoNeb inhalations, Pulmicort and Perforomist inhalations, IV Solu-Medrol, Singulair. X-ray reveals mild cardiomegaly with some mild vascular congestion without deisy edema. No definite pleural effusions present. 05/18/2019 Patient is seen and evaluated in ICU; continues to complain of nausea and dry heaves; patient was started on IV Protonix with the twice a day dosing yest erday; cardiology is following and recommending to decrease dose of amiodarone to 200 mg twice a day from tomorrow Vital signs remained stable with a temperature of 97.7, pulse 71, respiration 15 and blood pressure 130/66 with SpO2 of 92% on 5 L Laboratory review shows CBC white blood count of 8.5, hemoglobin 8.2 and platelet count of 55; sodium 136 potassium of 4.2 with BUN 67 and creatinine of 4.75 Patient has converted to normal sinus rhythm and remains on amiodarone which is recommended to be decreased to 200 mg twice a day from tomorrow She is also maintained on DuoNeb inhalations, Pulmicort and Perforomist inhalations, IV Solu-Medrol, Singulair. X-ray reveals mild cardiomegaly with so me mild vascular congestion without deisy edema. No definite pleural effusions present. Objective - Vital Signs Vital signs: Vital Signs Temp 98 F 05/18/19 04:00 Pulse 73 05/18/19 07:00 Resp 18 05/18/19 07:00 BP 120/59 05/18/19 07:00 Pulse Ox 93 L 05/18/19 07:00 Intake & Output 05/17/19 05/18/19 05/18/19 18:59 06:59 18:59 Intake Total 690 0 Output Total 500 0 Balance 190 0 Weight 133.7 kg Intake: IV 40 0 0.9 NS 40 0 Oral 650 Output: Urine 0 0 Emesis 300 Hemodialysis 100 Other 100 Other: Voiding Method Bedpan # Voids 0 - Exam GENERAL EXAM: Alert, pleasant, 64-year-old white female, on told his of oxygen per high flow nasal cannula comfortable in no apparent distress. HEAD: Normocephalic/atraumatic. EYES: Normal reaction of pupils, equal size. Conjunctiva pink, sclera white. NOSE: Clear with pink turbinates. THROAT: No erythema or exudates. NECK: No masses, no JVD, no thyroid enlargement, no adenopathy. CHEST: No chest wall deformity. Symmetrical expansion. Right upper chest hemodialysis permacath is in place LUNGS: Equal air entry with clear breath sounds, limited crackles at bases CVS: Regular rate and rhythm, normal S1 and S2, no gallops, no murmurs, no rubs ABDOMEN: Soft, nontender. No hepatosplenomegaly, normal bowel sounds, no guarding or rigidity. EXTREMITIES: No clubbing, no edema, no cyanosis, 2+ pulses and upper and lower extremities. MUSCULOSKELETAL: Muscle strength and tone normal. - Labs CBC & Chem 7: 05/18/19 06:35 05/18/19 06:35 Labs: Abnormal Lab Results - Last 24 Hours (Table) 05/17/19 05/17/19 05/17/19 Range/Units 05:40 11:35 16:46 Neutrophils # (Manual) 8.01 H (1.3-7.7) k/uL Lymphocytes # (Manual) 0.26 L (1.0-4.8) k/uL Myelocytes # (Manual) 0.09 H (0) k/uL Nucleated RBCs 2 H (0-0) /100 WBC POC Glucose (mg/dL) 164 H 136 H (75-99) mg/dL 05/17/19 Range/Units 20:18 Neutrophils # (Manual) (1.3-7.7) k/uL Lymphocytes # (Manual) (1.0-4.8) k/uL Myelocytes # (Manual) (0) k/uL Nucleated RBCs (0-0) /100 WBC POC Glucose (mg/dL) 113 H (75-99) mg/dL Assessment and Plan Assessment: 1. Acute hypoxic respiratory failure; multifactorial; - Acute right lower lobe pneumonia - ARDS - improving with current treatment with DuoNeb nebulizer treatments 4 times a day and when necessary; Pulmicort nebulizer twice a day; Perforomist 20 MCG twice a day; Solu-Medrol 40 mg IV every 6 hours; continue with IV antibiotics in form of cefepime 1 g IV daily; patient remains on high flow oxygen with plans to continue with gradual weaning as tolerated 2. Acute renal injury/ ATN; patient has permanent dialysis catheter and remains on hemodialysis 3. Gram-positive bacteremia; 4. UTI; Enterococcus faecalis 5. Acute on chronic systolic CHF; ejection fraction at 45-50%; stable; cardiology is following 6. Chemotherapy-induced pancytopenia; hematology is following; chemotherapy remains on hold; blood counts are stable 7. Atrial fibrillation with RVR; currently normal sinus rhythm; remains on oral amiodarone and rate controlled on metoprolol 50 mg by mouth daily along with 2.5 mg IV every 6 hours when necessary 8. DVT prophylaxis; SCDs/ increase activity with physical therapy CODE STATUS; full code Time with Patient: Greater than 30
[2019-05-18] MEDS: HYDROcodone/APAP 5-325MG 1 EACH TAB PO PRN ×3 (10:26→21:01)
[2019-05-18 12:12] LABS: Glucose,Whole Blood 106 mg/dL (75-99)
--- NOTE | 2019-05-18 13:38 | P.PN ---
Subjective Progress Note Date: 05/18/19 Principal diagnosis: This is 64-year-old female with acute kidney injury, ATN secondary to vancomycin. Currently on dialysis, on Sunday and had dialysis yesterday Sunday. She is starting to make small amounts of urine. She complains of nausea vomiting since daily for yesterday. She also has poor appetite. No fever chills. Her liver function tests have started to deteriorate and bilirubin has gone up. She is on atorvastatin and Amiodrone. No diarrhea bowel movements are normal no abdominal pain no symptoms of GERD. No dysuria frequency she has minimal urine output. No Hunter catheter. She is in atrial fibrillation in the monitor. Objective - Vital Signs Vital signs: Vital Signs Temp 97.4 F L 05/18/19 11:30 Pulse 70 05/18/19 11:45 Resp 15 05/18/19 11:30 BP 114/63 05/18/19 11:30 Pulse Ox 100 05/18/19 11:30 Intake & Output 05/17/19 05/18/19 05/18/19 18:59 06:59 18:59 Intake Total 690 0 Output Total 500 0 Balance 190 0 Weight 133.7 kg Intake: IV 40 0 0.9 NS 40 0 Oral 650 Output: Urine 0 0 Emesis 300 Hemodialysis 100 Other 100 Other: Voiding Method Bedpan Bedpan # Voids 0 # Bowel Movements 1 Examination she is awake alert oriented. HEENT exam no JVP, no nodes neck is supple no facial asymmetry Lungs are clear to auscultation fair air entry bilaterally Heart sounds are unremarkable she seems to be normal sinus rhythm on the moment Abdomen soft nontender obese. Liver and difficult to examine Extremity exam was minimal edema Neuro logically awake alert oriented - Labs CBC & Chem 7: 05/18/19 06:35 05/18/19 06:35 Labs: Abnormal Lab Results - Last 24 Hours (Table) 05/17/19 05/17/19 05/18/19 Range/Units 16:46 20:18 06:35 RBC 2.31 L (3.80-5.40) m/uL Hgb 8.2 L (11.4-16.0) gm/dL Hct 25.1 L (34.0-46.0) % MCV 108.4 H (80.0-100.0) fL MCH 35.3 H (25.0-35.0) pg RDW 23.0 H (11.5-15.5) % Plt Count 55 L (150-450) k/uL Lymphocytes # (Manual) 0.34 L (1.0-4.8) k/uL Monocytes # (Manual) 1.02 H (0-1.0) k/uL Metamyelocytes # (Man) 0.09 H (0) k/uL Nucleated RBCs 3 H (0-0) /100 WBC Macrocytosis Marked A Sodium (137-145) mmol/L Chloride (98-107) mmol/L BUN (7-17) mg/dL Creatinine (0.52-1.04) mg/dL POC Glucose (mg/dL) 136 H 113 H (75-99) mg/dL Calcium (8.4-10.2) mg/dL 05/18/19 05/18/19 Range/Units 06:35 12:01 RBC (3.80-5.40) m/uL Hgb (11.4-16.0) gm/dL Hct (34.0-46.0) % MCV (80.0-100.0) fL MCH (25.0-35.0) pg RDW (11.5-15.5) % Plt Count (150-450) k/uL Lymphocytes # (Manual) (1.0-4.8) k/uL Monocytes # (Manual) (0-1.0) k/uL Metamyelocytes # (Man) (0) k/uL Nucleated RBCs (0-0) /100 WBC Macrocytosis Sodium 136 L (137-145) mmol/L Chloride 97 L (98-107) mmol/L BUN 67 H (7-17) mg/dL Creatinine 4.75 H (0.52-1.04) mg/dL POC Glucose (mg/dL) 106 H (75-99) mg/dL Calcium 6.7 L (8.4-10.2) mg/dL Assessment and Plan Assessment: Impression 1. Acute kidney injury, vancomycin associated toxicity. Hemodialysis dependent. Patient's currently on dialysis and has minimal urine output. Last dialysis was yesterday Sunday. She has a permacath in the right 2. Congestive heart failure, significantly improved, chest x-ray no CHF 3. On BiPAP 4. Staph bacteremia repeat negative cultures 5. Atrial fibrillation, rate controlled 6. Enterococcus faecalis urinary tract infection 7. Anemia with hemoglobin 8.2 8. Mild hyperkalemia potassium is 5.7, resolved post dialysis 9. Mild acidosis, improved On sodium bicarb 1300 twice a day bicarb is 26, bicarbonate has been reduced 10. Elevated liver enzymes and nausea vomiting Recommendation 1. Maintain dialysis schedule next dialysis will be possibly Sunday or Sunday unless her urine output picks up and her creatinine starts to come down. 2. Her bicarbonate has been reduced to 350 twice a day as of yesterday . 3. Discontinue atorvastatin because elevated liver enzymes. She is on amiodarone as well. 4. Started darbepoetin 40 g every week
[2019-05-18 17:06] LABS: Glucose,Whole Blood 91 mg/dL (75-99)
[2019-05-18 20:53] LABS: Glucose,Whole Blood 72 mg/dL (75-99)
[2019-05-18] MEDS: SENNOSIDES-DOCUSATE SODIUM 1 EACH TAB PO SCH (20:54)
[2019-05-18] MEDS: ALPRAZolam 0.25 MG TAB PO PRN (21:02)
[2019-05-18] MEDS: MELATONIN 3 MG TABLET PO SCH (21:06)
[2019-05-19] MEDS: SALT AND SODA MOUTHWASH 1,000 ML PO SCH ×4 (01:13→16:52)
[2019-05-19] MEDS: METOCLOPRAMIDE 5 MG/ML 2 ML VIAL IVP SCH ×4 (01:17→20:32)
[2019-05-19 04:21] LABS: Anisocytosis Moderate; HCT 23.5 % (34.0-46.0); HGB 7.5 gm/dL (11.4-16.0); Hypochromasia Slight; MCH 34.3 pg (25.0-35.0); MCHC 31.8 g/dL (31.0-37.0); MCV 107.9 fL (80.0-100.0); Macrocytosis Marked; Mean Platelet Volume 10.3; RBC 2.18 m/uL (3.80-5.40); RDW 22.1 % (11.5-15.5)
[2019-05-19 04:58] LABS: Albumin 2.7 g/dL (3.5-5.0); Potassium 4.6 mmol/L (3.5-5.1); Total Bilirubin 1.1 mg/dL (0.2-1.3); Total Protein 5.5 g/dL (6.3-8.2)
[2019-05-19 05:17] LABS: Calcium 6.2 mg/dL (8.4-10.2)
[2019-05-19 05:30] LABS: Band Neutrophils % 3 %; Lymphocytes # (M) 0.11 k/uL (1.0-4.8); Monocytes # (M) 0.57 k/uL (0-1.0); Neutrophils % (M) 85 %; Nucleated Red Blood Cells 6 /100 WBC (0-0); Total Cells Counted 200; WBC 5.7 k/uL (3.8-10.6)
[2019-05-19 05:31] LABS: Platelet Count 54 k/uL (150-450)
[2019-05-19 05:32] LABS: Anisocytosis (M) Present; Polychromasia Present
[2019-05-19 06:30] LABS: Glucose,Whole Blood 71 mg/dL (75-99)
[2019-05-19] MEDS: INSULIN ASPART (NovoLOG) 100 UNIT/ML VIAL SQ SCH ×3 (06:39→20:33)
[2019-05-19] MEDS: SUCRALFATE 1 GM TAB PO SCH ×4 (06:42→20:33)
[2019-05-19 07:00] LABS: Glucose,Whole Blood 120 mg/dL (75-99)
[2019-05-19] MEDS: IPRATROPIUM-ALBUTEROL 3 ML NEB INHALATION SCH ×4 (07:26→19:14)
[2019-05-19] MEDS: FORMOTEROL FUMARATE 20 MCG/2 ML NEBU INHALATION SCH ×2 (07:26→19:14)
[2019-05-19] MEDS: BUDESONIDE 1 MG/2 ML NEBU INHALATION SCH ×2 (07:26→19:13)
[2019-05-19] MEDS: ONDANSETRON 4 MG/2 ML VIAL IVP PRN ×2 (07:28→15:25)
[2019-05-19] MEDS ORDERED: CALCIUM GLUCONATE 1 GM in SODIUM CHLORIDE 0.9% 100 ML IVPB ONE (08:00)
[2019-05-19 08:14] LABS: Magnesium 2.4 mg/dL (1.6-2.3); Phosphorus 8.2 mg/dL (2.5-4.5)
[2019-05-19] MEDS ORDERED: MIDODRINE 5 MG TAB PO PRN ×2 (08:37→08:39)
[2019-05-19] MEDS: ASPIRIN 81 MG PO SCH (09:19)
[2019-05-19] MEDS: PANTOPRAZOLE 40 MG/10 ML VIAL IVP SCH ×2 (09:23→20:32)
[2019-05-19] MEDS: CALCIUM CARBONATE 500 MG CHEWABLE PO SCH ×3 (09:23→20:32)
[2019-05-19] MEDS: METOPROLOL SUCCINATE (ER) 50 MG TAB.ER.24H PO SCH (09:23)
[2019-05-19] MEDS: CALCITRIOL 0.25 MCG CAP PO SCH (09:23)
[2019-05-19 10:38] VITALS: BMI 59.4
[2019-05-19] MEDS: SODIUM BICARBONATE TAB 650 MG TAB PO SCH (11:50)
[2019-05-19] MEDS: GABAPENTIN 300 MG CAP PO SCH (11:50)
[2019-05-19] MEDS: FLUTICASONE 50MCG/SPRAY NASAL 16GM EA NOSTRIL SCH (11:50)
[2019-05-19 12:09] LABS: Glucose,Whole Blood 82 mg/dL (75-99)
--- NOTE | 2019-05-19 12:19 | P.PN ---
Subjective Progress Note Date: 05/19/19 Principal diagnosis: Bacteremia Tolerating pO intake, worked with PT today and HD Objective - Vital Signs Vital signs: Vital Signs Temp 98 F 05/19/19 04:00 Pulse 74 05/19/19 04:00 Resp 12 05/19/19 04:00 BP 109/50 05/19/19 04:00 Pulse Ox 95 05/19/19 04:00 Intake & Output 05/18/19 05/19/19 05/19/19 18:59 06:59 18:59 Intake Total 0 Output Total 0 Balance 0 Weight 138 kg 138 kg Intake: IV 0 0.9 NS 0 Output: Urine 0 Other: Voiding Method Bedpan Bedpan # Voids 0 # Bowel Movements 1 - Exam General: Alert and Oriented x3, No Acute Distress, lethargic Head: Normocytic, Atraumatic Neck: Supple Mouth: No Lesions, No Thrush Eyes: Non-sclerotic No Palpable cervical, supraclavicular, axillary adenopathy Heart:Iregg irreg Lungs: Increased effort, Diminished, bipap Abdomen: Soft, Non-Distended, Non-Tended, BSx4 Neurological: No Focal Defects: No sensory or motor deficits noted - Labs CBC & Chem 7: 05/19/19 03:55 05/19/19 03:55 Labs: Abnormal Lab Results - Last 24 Hours (Table) 05/18/19 05/19/19 05/19/19 Range/Units 20:42 03:55 03:55 RBC 2.18 L (3.80-5.40) m/uL Hgb 7.5 L (11.4-16.0) gm/dL Hct 23.5 L (34.0-46.0) % MCV 107.9 H (80.0-100.0) fL RDW 22.1 H (11.5-15.5) % Plt Count 54 L (150-450) k/uL Lymphocytes # (Manual) 0.11 L (1.0-4.8) k/uL Nucleated RBCs 6 H (0-0) /100 WBC Macrocytosis Marked A Sodium 135 L (137-145) mmol/L Chloride 95 L (98-107) mmol/L BUN 90 H (7-17) mg/dL Creatinine 6.10 H (0.52-1.04) mg/dL Glucose 67 L (74-99) mg/dL POC Glucose (mg/dL) 72 L (75-99) mg/dL Calcium 6.2 L* (8.4-10.2) mg/dL Phosphorus (2.5-4.5) mg/dL Magnesium (1.6-2.3) mg/dL AST 69 H (14-36) U/L ALT 78 H (9-52) U/L Total Protein 5.5 L (6.3-8.2) g/dL Albumin 2.7 L (3.5-5.0) g/dL 05/19/19 05/19/19 05/19/19 Range/Units 03:55 06:18 06:48 RBC (3.80-5.40) m/uL Hgb (11.4-16.0) gm/dL Hct (34.0-46.0) % MCV (80.0-100.0) fL RDW (11.5-15.5) % Plt Count (150-450) k/uL Lymphocytes # (Manual) (1.0-4.8) k/uL Nucleated RBCs (0-0) /100 WBC Macrocytosis Sodium (137-145) mmol/L Chloride (98-107) mmol/L BUN (7-17) mg/dL Creatinine (0.52-1.04) mg/dL Glucose (74-99) mg/dL POC Glucose (mg/dL) 71 L 120 H (75-99) mg/dL Calcium (8.4-10.2) mg/dL Phosphorus 8.2 H (2.5-4.5) mg/dL Magnesium 2.4 H (1.6-2.3) mg/dL AST (14-36) U/L ALT (9-52) U/L Total Protein (6.3-8.2) g/dL Albumin (3.5-5.0) g/dL Assessment and Plan Plan: Pancytopenia: - Secondary to chemotherapy with ibrance and Radiation - Hold chemotherapy at this time - Overall levels Stable - Hemoglobin 7.5 and platlets 54K today, no transfusions needed. Acute Renal Insufficiency: - Dialysis per Nephrology Metastatic Breast cancer - Bone - ?Progression - Xgeva,Faslodex and Ibrance recently prescribed at progression - XRT to spine recently completed - Chemo and Medications on hold at this time until resolution of current issues Neoplastic Related Pain: - Continue current pain regimen - Add bowel protocol. Acute Respiratory failure: - In ICU Care - Pulmonary Following Atrial Fibrillation with RVR: - Cardiology Overall stable. COntinue supportive ICU care
[2019-05-19] MEDS: DRONABINOL 2.5 MG CAP PO SCH ×2 (12:34→16:50)
[2019-05-19] MEDS: AMIODARONE 200 MG TAB PO SCH ×2 (12:35→20:32)
--- NOTE | 2019-05-19 14:39 | P.PN ---
Subjective Progress Note Date: 05/19/19 Principal diagnosis: This is a 63-year-old female was recently admitted for shortness of breath, fever and chills, weakness and lethargy and is being closely monitored. Right lower pneumonia suspected. Nephrology was consulted due to an increase in creatinine. IV fluids will be discontinued as patient is eating and drinking and tolerating well. Will continue with oral Lasix. Patient continues to have some mild edema to the bilateral lower extremities. oncology is following as well. Patient denies any chest pain or palpitations at this time. Patient states that she is having some mild shortness of breath which has improved since yesterday. Patient is afebrile. Patient denies any nausea or vomiting and is tolerating diet. Guarded prognosis 05/02/2019 Patient is sitting up in chair in no acute distress. Patient states that she does not feel well today. Patient states that she slept well but woke up with no appetite and feeling overall not well. Patient states that her breathing has slightly improved and still having an occasional cough. Patient is continued on bronchodilators at this time. Patient denies any chest pain, shortness of breath, or palpitations at this time. Patient is afebrile. Patient denies any nausea or vomiting just has no appetite. Guarded prognosis. 05/19/2019 Patient is currently in the ICU awaiting a bed on [address] and is being monitored closely. Patient is sitting up in bed in no acute distress. Patient received dialysis today with removal of 1.5 L. Patient is still having nausea and vomiting and Marinol has been recently been added to the medication regime. Oncology is following closely as well as multiple other medical consultants. Per cardiology recommendations patient is currently back on amiodarone oral and IV drip was discontinued. Repeat blood cultures thus far have been negative. Patient is off antibiotics at this time with no evidence of acute infection. Infectious disease is following on an as-needed basis. Patient will continue on the dialysis for Tuesdays, , and Saturdays and as needed during hospitalization. Guarded prognosis. Objective - Vital Signs Vital signs: Vital Signs Temp 98.1 F 05/19/19 14:10 Pulse 68 05/19/19 14:10 Resp 18 05/19/19 14:10 BP 129/65 05/19/19 14:10 Pulse Ox 95 05/19/19 04:00 Intake & Output 05/18/19 05/19/19 05/19/19 18:59 06:59 18:59 Intake Total 0 Output Total 0 1800 Balance 0 -1800 Weight 138 kg 138 kg Intake: IV 0 0.9 NS 0 Output: Urine 0 Hemodialysis 1800 Other: Voiding Method Bedpan Bedpan # Voids 0 # Bowel Movements 1 - Exam Gen: This is a 63-year-old female sitting up in bed in no acute distress. Vital signs are stable. Temp is 98.1F, pulse is 68, respirations are 18, blood pressure is 129/65, oxygen saturation is 95% on 2 L via nasal cannula. HEENT: Head is atraumatic, normocephalic. Pupils equal, round. Sclerae is anict yvonne. NECK: Supple. No JVD. No lymphadenopathy. No thyromegaly. LUNGS: Diminished breath sounds at the bases with a few scattered crackles at the bases. No intercostal retractions. HEART: S1 and S2 are muffled. No murmur. Right upper chest permacath noted ABDOMEN: Soft. Obese. Bowel sounds are present. No masses. No tenderness. EXTREMITIES: No edema or swelling noted. No calf tenderness. NEUROLOGICAL: Patient is awake, alert and oriented x3. Cranial nerves 2 through 12 are grossly intact. - Labs CBC & Chem 7: 05/19/19 03:55 05/19/19 03:55 Labs: Abnormal Lab Results - Last 24 Hours (Table) 05/18/19 05/19/19 05/19/19 Range/Units 20:42 03:55 03:55 RBC 2.18 L (3.80-5.40) m/uL Hgb 7.5 L (11.4-16.0) gm/dL Hct 23.5 L (34.0-46.0) % MCV 107.9 H (80.0-100.0) fL RDW 22.1 H (11.5-15.5) % Plt Count 54 L (150-450) k/uL Lymphocytes # (Manual) 0.11 L (1.0-4.8) k/uL Nucleated RBCs 6 H (0-0) /100 WBC Macrocytosis Marked A Sodium 135 L (137-145) mmol/L Chloride 95 L (98-107) mmol/L BUN 90 H (7-17) mg/dL Creatinine 6.10 H (0.52-1.04) mg/dL Glucose 67 L (74-99) mg/dL POC Glucose (mg/dL) 72 L (75-99) mg/dL Calcium 6.2 L* (8.4-10.2) mg/dL Phosphorus (2.5-4.5) mg/dL Magnesium (1.6-2.3) mg/dL AST 69 H (14-36) U/L ALT 78 H (9-52) U/L Total Protein 5.5 L (6.3-8.2) g/dL Albumin 2.7 L (3.5-5.0) g/dL 05/19/19 05/19/19 05/19/19 Range/Units 03:55 06:18 06:48 RBC (3.80-5.40) m/uL Hgb (11.4-16.0) gm/dL Hct (34.0-46.0) % MCV (80.0-100.0) fL RDW (11.5-15.5) % Plt Count (150-450) k/uL Lymphocytes # (Manual) (1.0-4.8) k/uL Nucleated RBCs (0-0) /100 WBC Macrocytosis Sodium (137-145) mmol/L Chloride (98-107) mmol/L BUN (7-17) mg/dL Creatinine (0.52-1.04) mg/dL Glucose (74-99) mg/dL POC Glucose (mg/dL) 71 L 120 H (75-99) mg/dL Calcium (8.4-10.2) mg/dL Phosphorus 8.2 H (2.5-4.5) mg/dL Magnesium 2.4 H (1.6-2.3) mg/dL AST (14-36) U/L ALT (9-52) U/L Total Protein (6.3-8.2) g/dL Albumin (3.5-5.0) g/dL Assessment and Plan Assessment: Acute right lobe pneumonia with sepsis and neutropenic sepsis Acute hypoxic respiratory failure, multifactorial, acute right lower lobe pneumonia, ARDS pancytopenia secondary to chemotherapy Carcinoma of the breast 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 Hyponatremia Increased creatinine with acute renal failure, possibly acute prerenal failure with acute tubular necrosis, right chest permacath with dialysis on //Saturdays Urinary tract infection, enterococcus faecalis Gram-positive bacteremia Acute on chronic systolic congestive heart failure; ejection fraction at 45-50% Atrial fibrillation with RVR: Cardiology is following, currently on amiodarone oral as well as metoprolol 50 daily Hypocalcemia increased AST Obesity with a body mass index of 59.8 History of hypertension History of hyperlipidemia History of CVA, left-sided History of breast surgery Remote history of nicotine dependence DVT prophylaxis; SCDs and increase activity with physical therapy Full code Recommendations and discussion: Due to multiple complex medical issues recommend to continue current medications, management, and symptomatic treatment. Multiple medical consultations are following. Patient is currently in the ICU and awaiting a bed on [facility] once one becomes available. Patient will continue on hemodialysis as needed as well as Tuesdays//Saturdays. Will monitor vital signs and labs closely. Due to multiple complex medical issues, prognosis is guarded. Further recommendations to follow.
[2019-05-19] MEDS: HYDROcodone/APAP 5-325MG 1 EACH TAB PO PRN (15:26)
--- NOTE | 2019-05-19 15:45 | P.PN ---
Subjective Progress Note Date: 05/19/19 On today's evaluation of 05/19/2019, the patient is awake and alert and calm and comfortable. She has extremity poor appetite. She is able to swallow, however, she tells me that the appetite is poor and she doesn't have the appetite to have anything orally. She has some occasional nausea. No emesis. No diarrhea. No abdominal distention. She did have some dysphagia earlier related to radiation therapy to her neck due to metastatic breast cancer. The patient otherwise is doing well. She is undergoing hemodialysis today. No signs of any significant fluid overload. She is post acute hypoxic respiratory failure secondary to pulmonary edema which seems to be improving. She has an underlying staphylococcal bacteremia and she also had Enterococcus faecalis in the urine both are being treated. LFTs remain slightly abnormal. No abdominal distention. No right upper quadrant pain. White cell count is at 5.7. Hemoglobin is at 7.5 which is also stable. The repeat blood cultures are nega tive for now. The patient is covered with no antibiotics as the patient is completed antibiotic course. Her current rhythm is sinus. She is quite weak and debilitated. Objective - Vital Signs Vital signs: Vital Signs Temp 98.1 F 05/19/19 14:10 Pulse 68 05/19/19 14:10 Resp 18 05/19/19 14:10 BP 129/65 05/19/19 14:10 Pulse Ox 90 L 05/19/19 13:00 Intake & Output 05/18/19 05/19/19 05/19/19 18:59 06:59 18:59 Intake Total 0 Output Total 0 1800 Balance 0 -1800 Weight 138 kg 138 kg Intake: IV 0 0.9 NS 0 Output: Urine 0 Hemodialysis 1800 Other: Voiding Method Bedpan Bedpan # Voids 0 # Bowel Movements 1 - Exam GENERAL EXAM: Alert, pleasant, 64-year-old female patient, on 4 L oxygen per high flow nasal cannula comfortable in no apparent distress. HEAD: Normocephalic/atraumatic. EYES: Normal reaction of pupils, equal size. Conjunctiva pink, sclera white. NOSE: Clear with pink turbinates. THROAT: No erythema or exudates. NECK: No masses, no JVD, no thyroid enlargement, no adenopathy. CHEST: No chest wall deformity. Symmetrical expansion. Right upper chest hemodialysis permacath is in place LUNGS: Equal air entry with clear breath sounds, limited crackles at bases CVS: Regular rate and rhythm, normal S1 and S2, no gallops, no murmurs, no rubs ABDOMEN: Soft, nontender. No hepatosplenomegaly, normal bowel sounds, no guarding or rigidity. EXTREMITIES: No clubbing, no edema, no cyanosis, 2+ pulses and upper and lower extremities. MUSCULOSKELETAL: Muscle strength and tone normal. SPINE: No scoliosis or deformity SKIN: No rashes CENTRAL NERVOUS SYSTEM: No focal deficits, tone is normal in all 4 extremities. PSYCHIATRIC: Alert and oriented -3. Appropriate affect. Intact judgment and insight. - Labs CBC & Chem 7: 05/19/19 03:55 05/19/19 03:55 Labs: Abnormal Lab Results - Last 24 Hours (Table) 05/18/19 05/19/19 05/19/19 Range/Units 20:42 03:55 03:55 RBC 2.18 L (3.80-5.40) m/uL Hgb 7.5 L (11.4-16.0) gm/dL Hct 23.5 L (34.0-46.0) % MCV 107.9 H (80.0-100.0) fL RDW 22.1 H (11.5-15.5) % Plt Count 54 L (150-450) k/uL Lymphocytes # (Manual) 0.11 L (1.0-4.8) k/uL Nucleated RBCs 6 H (0-0) /100 WBC Macrocytosis Marked A Sodium 135 L (137-145) mmol/L Chloride 95 L (98-107) mmol/L BUN 90 H (7-17) mg/dL Creatinine 6.10 H (0.52-1.04) mg/dL Glucose 67 L (74-99) mg/dL POC Glucose (mg/dL) 72 L (75-99) mg/dL Calcium 6.2 L* (8.4-10.2) mg/dL Phosphorus (2.5-4.5) mg/dL Magnesium (1.6-2.3) mg/dL AST 69 H (14-36) U/L ALT 78 H (9-52) U/L Total Protein 5.5 L (6.3-8.2) g/dL Albumin 2.7 L (3.5-5.0) g/dL 05/19/19 05/19/19 05/19/19 Range/Units 03:55 06:18 06:48 RBC (3.80-5.40) m/uL Hgb (11.4-16.0) gm/dL Hct (34.0-46.0) % MCV (80.0-100.0) fL RDW (11.5-15.5) % Plt Count (150-450) k/uL Lymphocytes # (Manual) (1.0-4.8) k/uL Nucleated RBCs (0-0) /100 WBC Macrocytosis Sodium (137-145) mmol/L Chloride (98-107) mmol/L BUN (7-17) mg/dL Creatinine (0.52-1.04) mg/dL Glucose (74-99) mg/dL POC Glucose (mg/dL) 71 L 120 H (75-99) mg/dL Calcium (8.4-10.2) mg/dL Phosphorus 8.2 H (2.5-4.5) mg/dL Magnesium 2.4 H (1.6-2.3) mg/dL AST (14-36) U/L ALT (9-52) U/L Total Protein (6.3-8.2) g/dL Albumin (3.5-5.0) g/dL Assessment and Plan Plan: 1 dyspnea multifactorial related to underlying sepsis/UTI/renal failure/anemia. The patient also had coronary megaly and pulmonary vessel congestion. The chest x-ray from yesterday showed clearing of the lungs with clear pleural spaces. The patient is currently on 4lby nasal cannula. 2 acute kidney injury secondary to ATN, possible vancomycin nephrotoxicity. In addition to sepsis. The patient is currently dialysis dependent and the patient underwent dialysis on a daily basis with permacath in the right upper chest/IJ area. 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 Plan The patient has poor appetite. Her oral intake is diminished. Nevertheless she is not losing any significant amount of weight. We'll like to put her on Marinol as an appetite stimulant 5 mg by mouth twice a day. She is able to swallow and she doesn't have any ongoing dysphagia at this point in time. Her sepsis is treated. The patient. There is a Hunter is on the case. We'll continue to follow.
[2019-05-19] MEDS ORDERED: SALT AND SODA MOUTHWASH 1,000 ML PO PRN (16:05)
[2019-05-19 17:12] LABS: Glucose,Whole Blood 115 mg/dL (75-99)
--- NOTE | 2019-05-19 19:07 | PN ---
PROGRESS NOTE Patient is seen for followup for acute kidney injury. Patient remains oliguric. She had dialysis this morning. No significant complaints. She is trying to work with physical therapy. PHYSICAL EXAMINATION: Blood pressure 129/65, heart rate 68 per minute, patient is afebrile. Examination of the heart S1, S2. Examination of the lungs, bilateral breath sounds are heard. No crackles or wheezing is heard. Abdomen is soft, obese, nontender. SCREEN MAKER exam grossly intact. LAB: Show sodium 135, potassium 4.6, BUN 90, serum creatinine 6.1, calcium 6.2, magnesium 2.4, hemoglobin 7.5 g/dL. ASSESSMENT: 1. Acute kidney injury, acute tubular necrosis and from vancomycin toxicity, currently oliguric and dialysis dependent. We will plan for another treatment on Sunday, which would be 05/21/2019. 2. Volume overload, significantly improved. Decrease ultrafiltration to only about 0.5 L for next treatment. 3. Poor oral intake. The patient is encouraged to eat unrestricted diet for now. 4. Urinary tract infection with Enterococcus faecalis, status post antibiotics. 5. Atrial fibrillation with controlled ventricular response. 6. Anemia. No active bleeding noted. Started on Aranesp. 7. Hypocalcemia. Maintained on calcitriol. 8. Metabolic acidosis, now resolved. I will discontinue the sodium bicarb. PLAN: Next dialysis on 05/21/2019. Decrease UF with dialysis. Encourage increased oral intake. The patient will be going to the [facility] to continue outpatient treatments. MMODL / IJN: [id number] /
[2019-05-19] MEDS: SENNOSIDES-DOCUSATE SODIUM 1 EACH TAB PO SCH (20:32)
[2019-05-19] MEDS: MELATONIN 3 MG TABLET PO SCH (20:32)
[2019-05-19 20:38] LABS: Glucose,Whole Blood 79 mg/dL (75-99)
--- NOTE | 2019-05-19 22:00 | P.PN ---
Subjective Progress Note Date: 05/19/19 Pleasant 63-year-old female is a complex past medical history regarding her breast carcinoma. 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 Because of increasing pain and neurological difficulties she was evaluated was treated with radiation therapy to the cervical and thoracic spine . She Developed extensive radiation dermatitis and esophagitis. She was hospitalized [facility] and with treatment of the skin and esophagitis she had marked improvement. She has had a subsequent hospitalization at the outside facility where she had a urinary tract infection. She now presents to Hospital feeling poorly with evidence significant weakness with fever 102, chills and evidence of new abnormality. Chest x-ray acute renal failure and generalized malaise. With fluid resuscitation antibiotic therapy she started to feel somewhat better. Cultures are in process with concerns to urinary tract infection as a source of the current bout of sepsis. 05/02/2017 the patient's renal failure continues but her fevers improved. With the elevated vancomycin level this is put on hold. 05/04/2019 patient continues to have increasing creatinine, and feels poorly with her acute renal failure. She is having some shakiness to her arms and legs, weakness and poor appetite. However is not having nausea or emesis. All the food does taste poorly. She's had some increased difficulties with her oral cavity possibly thrush. 05/05/2019 the patient has had a significant worsening of her status overnight. She became profoundly short of breath and required transfusions and its care unit where she's now been placed on BiPAP has been titrated down to 50% now she is feeling considerably better bacillin well. She's having no chest pains. She was seen by cardiology there is evidence of volume overload as well as worsening of her aortic stenosis and regurgitation and pulmonary hypertension. The the treatment of failure has stabilized with no further increase of her creatinine. Vancomycin level is still therapeutic but falling. 05/06/2019 patient's volume status became more problematic, more short of breath She's been seen by the nephrology and dialysis is initiated. Approximately 2- 1/2 L of fluid have been removed and she is now less short of breath but emotional upset. It is her 64th birthday. 05/08/2019 patient has had further cycles of hemodialysis and is now approximately 10 L of fluid removed by ultrafiltration, is having some improvement over status but is still having a significant acute lung injury with the significant ongoing shortness of breath and BiPAP dependence. Her mood is poor and she is anxious about her overall care. 05/09/2019 patient no longer on bipap now on high flow O2 and doing well. fells better, and is hungry 05/12/2019 patient remains on Airvo lower rate. She is less short of breath awaappetite started to improve although relates that food does taste poorly. After last dialysis she is less short of breath. There are plans for a more permanent dialysis catheter. 05/13/2019 awaits HD catheter 05/14/2019 has had her hemodialysis catheter placed. She's feeling 70% better today. The best she has felt in quite some time. She's left short of breath and has some appetite. 05/16/2019 patient is feeling better. Has had a bout of nausea and emesis but is now able to eat some sherbet. Her pain is well controlled at this time. Her shortness of breath is considerably improved she's now on 5 L nasal cannula and is off the airvo. 05/19/2019 patient is feeling better. With the intensive care unit. She is on nasal cannula oxygen with adequate oxygenation. She is not eating well and has poor appetite. Objective - Vital Signs Vital signs: Vital Signs Temp 97.8 F 05/19/19 20:00 Pulse 69 05/19/19 20:00 Resp 16 05/19/19 20:00 BP 103/55 05/19/19 20:00 Pulse Ox 95 05/19/19 20:00 Intake & Output 05/19/19 05/19/19 05/20/19 06:59 18:59 06:59 Intake Total 0 350 Output Total 0 1800 0 Balance 0 -1450 0 Weight 138 kg 138 kg Intake: IV 0 0.9 NS 0 Intake, IV Titration 100 Amount Calcium Gluconate 1 gm In 100 Sodium Chloride 0.9% 100 ml @ 100 mls/hr IVPB ONCE ONE Rx#:[id number] Oral 250 Output: Urine 0 0 0 Hemodialysis 1800 Other: Voiding Method Bedpan - Exam 63-year-old woman presents to Hospital feeling poorly now with a significant worsening shortness of breath, BiPAP no longer used but on high richard oxygen HEENT: Anicteric conjunctiva are pink and moist nasal mucosa grossly intact without significant lesions, and the very posterior aspect of the pharynx is now some mild white coating consistent with early thrush. Neck: The neck is supple without significant lymphadenopathy or thyromegaly. Lungs: There is symmetrical air entry with coarse crackles and wheezing to the lung chiang basilar crackles are heard Heart: Regular with the 2/6 systolic murmur left sternal border Abdomen: Obese, Positive bowel sounds soft minimal tenderness is noted in the right upper quadrant without palpable masses or organomegaly. There was no guarding or rebound. Extremities: The upper extremities have excellent pulses they are symmetric, no significant petechiae or telangiectasia. No splinter hemorrhages were noted. The lower extremities have trace edema pulses 2+ and symmetric Neuro: Awake alert oriented to person place and time. There are no acute new gross focal sensory motor deficits. Skin reveals evidence of the resolution of the radiation dermatitis does have some residual color change but there is nothing ulcer. She is not having any further difficulties with the esophagitis either although does have a bit of dry mouth and throat. The right femoral dialysis catheter was removed and now has the right internal jugular catheter in place. Neither site is tender. - Labs CBC & Chem 7: 05/19/19 03:55 05/19/19 03:55 Labs: Abnormal Lab Results - Last 24 Hours (Table) 05/19/19 05/19/19 05/19/19 Range/Units 03:55 03:55 03:55 RBC 2.18 L (3.80-5.40) m/uL Hgb 7.5 L (11.4-16.0) gm/dL Hct 23.5 L (34.0-46.0) % MCV 107.9 H (80.0-100.0) fL RDW 22.1 H (11.5-15.5) % Plt Count 54 L (150-450) k/uL Lymphocytes # (Manual) 0.11 L (1.0-4.8) k/uL Nucleated RBCs 6 H (0-0) /100 WBC Macrocytosis Marked A Sodium 135 L (137-145) mmol/L Chloride 95 L (98-107) mmol/L BUN 90 H (7-17) mg/dL Creatinine 6.10 H (0.52-1.04) mg/dL Glucose 67 L (74-99) mg/dL POC Glucose (mg/dL) (75-99) mg/dL Calcium 6.2 L* (8.4-10.2) mg/dL Phosphorus 8.2 H (2.5-4.5) mg/dL Magnesium 2.4 H (1.6-2.3) mg/dL AST 69 H (14-36) U/L ALT 78 H (9-52) U/L Total Protein 5.5 L (6.3-8.2) g/dL Albumin 2.7 L (3.5-5.0) g/dL 05/19/19 05/19/19 05/19/19 Range/Units 06:18 06:48 17:01 RBC (3.80-5.40) m/uL Hgb (11.4-16.0) gm/dL Hct (34.0-46.0) % MCV (80.0-100.0) fL RDW (11.5-15.5) % Plt Count (150-450) k/uL Lymphocytes # (Manual) (1.0-4.8) k/uL Nucleated RBCs (0-0) /100 WBC Macrocytosis Sodium (137-145) mmol/L Chloride (98-107) mmol/L BUN (7-17) mg/dL Creatinine (0.52-1.04) mg/dL Glucose (74-99) mg/dL POC Glucose (mg/dL) 71 L 120 H 115 H (75-99) mg/dL Calcium (8.4-10.2) mg/dL Phosphorus (2.5-4.5) mg/dL Magnesium (1.6-2.3) mg/dL AST (14-36) U/L ALT (9-52) U/L Total Protein (6.3-8.2) g/dL Albumin (3.5-5.0) g/dL Laboratory Results WBC 5.7 k/uL (3.8-10.6) 05/19/19 03:55 RBC 2.18 m/uL (3.80-5.40) L 05/19/19 03:55 Hgb 7.5 gm/dL (11.4-16.0) L 05/19/19 03:55 Hct 23.5 % (34.0-46.0) L 05/19/19 03:55 MCV 107.9 fL (80.0-100.0) H 05/19/19 03:55 MCH 34.3 pg (25.0-35.0) 05/19/19 03:55 MCHC 31.8 g/dL (31.0-37.0) 05/19/19 03:55 RDW 22.1 % (11.5-15.5) H 05/19/19 03:55 Plt Count 54 k/uL (150-450) L 05/19/19 03:55 Neutrophils % 93 % 05/09/19 05:26 Neutrophils % (Manual) 85 % 05/19/19 03:55 Band Neutrophils % 3 % 05/19/19 03:55 Lymphocytes % 2 % 05/09/19 05:26 Lymphocytes % (Manual) 2 % 05/19/19 03:55 Monocytes % 3 % 05/09/19 05:26 Monocytes % (Manual) 10 % 05/19/19 03:55 Eosinophils % 1 % 05/09/19 05:26 Eosinophils % (Manual) 1 % 05/18/19 06:35 Basophils % 0 % 05/09/19 05:26 Metamyelocytes % 1 % 05/18/19 06:35 Myelocytes % 1 % 05/17/19 05:40 Neutrophils # 6.7 k/uL (1.3-7.7) 05/09/19 05:26 Neutrophils # (Manual) 5.00 k/uL (1.3-7.7) 05/19/19 03:55 Lymphocytes # 0.2 k/uL (1.0-4.8) L 05/09/19 05:26 Lymphocytes # (Manual) 0.11 k/uL (1.0-4.8) L 05/19/19 03:55 Monocytes # 0.2 k/uL (0-1.0) 05/09/19 05:26 Monocytes # (Manual) 0.57 k/uL (0-1.0) 05/19/19 03:55 Eosinophils # 0.1 k/uL (0-0.7) 05/09/19 05:26 Eosinophils # (Manual) 0.09 k/uL (0-0.7) 05/18/19 06:35 Basophils # 0.0 k/uL (0-0.2) 05/09/19 05:26 Metamyelocytes # (Man) 0.09 k/uL (0) H 05/18/19 06:35 Myelocytes # (Manual) 0.09 k/uL (0) H 05/17/19 05:40 Nucleated RBCs 6 /100 WBC (0-0) H 05/19/19 03:55 Manual Slide Review Performed 05/19/19 03:55 Hypersegmented Neuts Present 05/12/19 04:29 Toxic Granulation Present 05/15/19 04:41 Large Platelets Present 05/18/19 06:35 Polychromasia Present 05/19/19 03:55 Hypochromasia Slight 05/19/19 03:55 Poikilocytosis (manual Present 05/16/19 04:30 Basophilic Stippling Present 05/13/19 04:18 Anisocytosis Moderate 05/19/19 03:55 Anisocytosis (manual) Present 05/19/19 03:55 Macrocytosis Marked A 05/19/19 03:55 Rouleaux Present 05/02/19 06:57 PT 10.7 sec (9.0-12.0) 05/01/19 12:37 INR 1.0 (<1.2) 05/01/19 12:37 APTT 26.3 sec (22.0-30.0) 05/01/19 12:37 Sample Site rrad 05/11/19 10:09 ABG pH 7.50 (7.35-7.45) H 05/11/19 10:09 ABG pCO2 30 mmHg (35-45) L 05/11/19 10:09 ABG pO2 82 mmHg (83-108) L 05/11/19 10:09 ABG HCO3 23 mmol/L (21-25) 05/11/19 10:09 ABG Total CO2 24 mmol/L (19-24) 05/11/19 10:09 ABG O2 Saturation 96.7 % (94-97) 05/11/19 10:09 ABG Base Excess -0.2 mmol/L 05/11/19 10:09 Arian Test Yes 05/11/19 10:09 FiO2 50 % 05/11/19 10:09 Sodium 135 mmol/L (137-145) L 05/19/19 03:55 Potassium 4.6 mmol/L (3.5-5.1) 05/19/19 03:55 Chloride 95 mmol/L (98-107) L 05/19/19 03:55 Carbon Dioxide 29 mmol/L (22-30) 05/19/19 03:55 Anion Gap 11 mmol/L 05/19/19 03:55 BUN 90 mg/dL (7-17) H 05/19/19 03:55 Creatinine 6.10 mg/dL (0.52-1.04) H 05/19/19 03:55 Est GFR (CKD-EPI)AfAm 8 (>60 ml/min/1.73 sqM) 05/19/19 03:55 Est GFR (CKD-EPI)NonAf 7 (>60 ml/min/1.73 sqM) 05/19/19 03:55 Glucose 67 mg/dL (74-99) L 05/19/19 03:55 POC Glucose (mg/dL) 79 mg/dL (75-99) 05/19/19 20:25 POC Glu Hat Block Maker LULU Lily Atkins 05/19/19 20:25 Plasma Lactic Acid Jon 0.9 mmol/L (0.7-2.0) 05/05/19 08:15 Calcium 6.2 mg/dL (8.4-10.2) L* 05/19/19 03:55 Ionized Calcium Peter 3.9 mg/dL (4.5-5.3) L 05/09/19 05:26 Phosphorus 8.2 mg/dL (2.5-4.5) H 05/19/19 03:55 Magnesium 2.4 mg/dL (1.6-2.3) H 05/19/19 03:55 Iron 246 ug/dL (50-170) H 05/10/19 04:38 TIBC 273 ug/dL (228-460) 05/10/19 04:38 Iron Saturation 90.11 (12.00-45.00) H 05/10/19 04:38 Total Bilirubin 1.1 mg/dL (0.2-1.3) 05/19/19 03:55 AST 69 U/L (14-36) H 05/19/19 03:55 ALT 78 U/L (9-52) H 05/19/19 03:55 Alkaline Phosphatase 118 U/L (38-126) 05/19/19 03:55 NT-Pro-B Natriuret Pep 25384 pg/mL 05/05/19 00:23 Total Protein 5.5 g/dL (6.3-8.2) L 05/19/19 03:55 Albumin 2.7 g/dL (3.5-5.0) L 05/19/19 03:55 Triglycerides 173 mg/dL (<150) H 05/09/19 05:26 Urine Color Dark Brown 04/30/19 13:00 Urine Appearance Turbid (Clear) H 04/30/19 13:00 Urine pH 5.0 (5.0-8.0) 04/30/19 13:00 Ur Specific [place] 1.016 (1.001-1.035) 04/30/19 13:00 Urine Protein 2+ (Negative) H 04/30/19 13:00 Urine Glucose (UA) Negative (Negative) 04/30/19 13:00 Urine Ketones Negative (Negative) 04/30/19 13:00 Urine Blood Large (Negative) H 04/30/19 13:00 Urine Nitrite Negative (Negative) 04/30/19 13:00 Urine Bilirubin Negative (Negative) 04/30/19 13:00 Urine Urobilinogen 4.0 mg/dL (<2.0) 04/30/19 13:00 Ur Leukocyte Esterase Large (Negative) H 04/30/19 13:00 Urine RBC >182 /hpf (0-5) H 04/30/19 13:00 Urine WBC 40 /hpf (0-5) H 04/30/19 13:00 Urine WBC Clumps Occasional /hpf (None) H 04/30/19 13:00 Ur Squamous Epith Cells 13 /hpf (0-4) H 04/30/19 13:00 Urine Bacteria Moderate /hpf (None) H 04/30/19 13:00 Urine Mucus Occasional /hpf (None) H 04/30/19 13:00 Random Vancomycin 16.4 ug/mL 05/06/19 04:06 Serum ANNE-MARIE Interpret SEE NOTE 05/03/19 23:18 Urine Immunofixation SEE NOTE 05/03/19 14:30 LOUANN Screen NEGATIVE (NEGATIVE) 05/03/19 23:18 c-ANCA <1:20 Titer (<1:20) 05/03/19 23:18 p-ANCA <1:20 Titer (<1:20) 05/03/19 23:18 Double Strand DNA Ab NEGATIVE (NEGATIVE) 05/03/19 23:18 Anti-DNA Ab Interp <1.0 IU/mL 05/03/19 23:18 Complement C3 117.0 mg/dL (80.0-207.0) 05/03/19 23:18 Complement C4 16.4 mg/dL (10.0-53.0) 05/03/19 23:18 Tot Complement (CH50) 92 U/mL (42 - 95) 05/06/19 04:06 Hepatitis A IgM Ab Non-Reactive (Non-Reactive) 05/03/19 23:18 Hep Bs Antigen Non-Reactive (Non-Reactive) 05/06/19 14:00 Hep Bs Antibody Non-Reactive (Non-Reactive) 05/05/19 14:00 Hep Bs Antibody, Quant 3.5 mIU/mL 05/05/19 14:00 Hep B Core Total Ab Non-Reactive (Non-Reactive) 05/06/19 14:00 Hep B Core IgM Ab Non-Reactive (Non-Reactive) 05/03/19 23:18 Hep C IgG Ab Non-Reactive (Non-Reactive) 05/03/19 23:18 Influenza Type A RNA Not Detected (Not Detectd) 04/30/19 13:04 Influenza Type B (PCR) Not Detected (Not Detectd) 04/30/19 13:04 Microbiology 05/05/19 04:39 Blood Blood Culture - Final No Growth after 144 hours 05/05/19 04:12 Blood Blood Culture - Final No Growth after 144 hours 05/03/19 23:18 Blood Blood Culture - Final No Growth after 144 hours 04/30/19 11:43 Blood Blood Culture Gram Stain - Final 04/30/19 11:43 Blood Blood Culture - Final Staphylococcus lugdunenisis 05/02/19 09:21 Sputum Gram Stain - Final 05/02/19 09:21 Sputum Sputum Culture - Final Mary albicans 04/30/19 13:00 Urine,Voided Urine Culture - Final Enterococcus faecalis 04/30/19 11:43 Blood Blood Culture - Final Assessment and Plan (1) Acute renal failure Current Visit: Yes Status: Acute Priority: High Code(s): N17.9 - ACUTE KIDNEY FAILURE, UNSPECIFIED SNOMED Code(s): 79549748 (2) Gram-positive cocci bacteremia Current Visit: No Status: Acute Code(s): R78.81 - BACTEREMIA SNOMED Code(s): 121381890502 (3) Metastatic breast carcinoma Current Visit: Yes Status: Chronic Priority: Medium Code(s): C50.919 - MALIGNANT NEOPLASM OF UNSP SITE OF UNSPECIFIED FEMALE BREAST SNOMED Code(s): 368304429 (4) Urinary tract infection Narrative/Plan: 63-year-old woman who has a history of the metastaticBreast carcinoma with evidence of significant metastasis to the skeleton as well as liver metastasis presents to Hospital feeling poorly with another bout of fever chills malaise occurring after her recent treatment with chemotherapy. Been seen by her oncology team and chemotherapy is now on hold. He does not have severe neutropenia and is being monitored. There is evidence of urinary tract infection is likely etiology her current sepsis and laboratories: Positive blood culture with gram-positive cocci. She's had several prior blood cultures with gram-positive cocci that has been staphylococcus ludegensis, which is a coagulase-negative staph and since the patient does not have an indwelling catheter has not been thought to be a significant pathogen. Somewhat concerning if it continues to be found. Urine culture is showing evidence of gram-positive cocci and constantly vancomycin therapy is being utilized as well as Rocephin until there is further data. She has developed acute renal failure and co nsequently very close monitoring with vancomycin therapy is indicated we'll try to limit the dosing as much as possible. Nephrology will be seeing her for her acute increase of her creatinine to 3.46. 2-D echocardiogram has been requested and she shall be monitored. 05/02/2018 dear culture now shows evidence of enterococcus blood cultures are growing coagulase negative staph. Antibiotic therapy will now be D escalated. The Rocephin and vancomycin are discontinued. Vancomycin level currently is elevated. Once his level falls to less than 15 will then be able to initiate alternative antibiotic therapy for the treatment of the enterococcus. If blood cultures remain negative would not need further IV antibiotic therapy. 05/04/2019 the patient continues to feel very poorly with evidence of her acute renal failure the toxicity associated with that. The vancomycin level has dropped to 23 and likely will be subtherapeutic and the next day or so. At that time with initiate by therapy to complete the treatment of her enterococcal infection. Nephrology is following and continue to contemplate the need for renal replacement therapy. The patient's blood cultures are being repeated to ensure that the foot was negative staph is not persistent, is noted he has been seen on several occasions in the past, but she does not have any indwelling catheters. 05/05/2019 the patient has had a significant worsening of her status development of respiratory failure requiring BiPAP therapy with evidence of congestive heart failure and worsening underlying cardiac function. Aortic stenosis and regurgitation symptoms considerably worse in her pulmonary hypertension is worse. With diuresis she is having less short of breath her BiPAP as tolerated 50% The vancomycin level will likely come subtherapeutic tomorrow and that will consider alteration of antibiotic therapy vancomycin is being utilized for the enterococcal urinary tract infection 05/06/2019 patient does feel slightly better with her hemodialysis it is started today. 2 half liters of fluid removed the profound shortness of breath is starting to improve. She will have dialysis again in the morning. Vancomycin level is being followed when subtherapeutic we'll need to consider if she needs further antibiotic therapy for her enterococcal urinary tract infection. She's had the multiple blood cultures with Staphylococcus ludigenesis overtime, she does not have an indwelling port. Most recent echocardiogram does not reveal evidence of endocarditis she does have significant valvular heart disease. When she is further improved may need a JERAMY. 05/08/2019 the patient is now had several cycles of hemodialysis and has had ap proximately 10 L of fluid removed. She still very short of breath requiring BiPAP. The patient is now had an adequate course of therapy for her enterococcal urinary tract infection vancomycin level is now trending toward subtherapeutic. She does not require further antibiotic therapy at this time. Of note the patient's creatinine was elevated before the first dose of vancomycin therapy. 05/09/2019 doing much better today off bipap and less SOB she's been doing well with the hemodialysis and ultrafiltration removing approximately 13 L of fluid he gained some appetite and mood and affect are somewhat improve She Has had adequate treatment of her urinary tract infection and needs no further antibiotic therapy this time. 05/12/2019 the patient has had further dialysis and is slightly less fluid overloaded and has improved creatinine. She is less short of breath, appetite still poor but attempting to eat. Nephrology has been following and is doing well with renal replacement therapy, plan for change to a more permanent dialysis catheter to continue ongoing hemodialysis. The original infection has not been well treated and requires no further antibiotic therapy at this time. An admission was already having renal failure, potentially worsened by the initial vancomycin therapy for her sepsis at admission. 05/13/2019 stable, for HD catheter placement antibiotics have completed and is improving. Less SOB 05/14/2019 patient is feeling better. Said that she's felt in some time. Doing well with the new hemodialysis catheter. Antibiotic therapy is complete and is being monitored. 05/16/2019 patient has further improvement. Is now on nasal cannula oxygen. Blood short of breath. Still having some bouts of nausea and emesis usually right after hemodialysis as it happened today. Some Zofran will be helpful. Continue try to improve her diet and her physical activity. She is off antibiotic therapy and remained stable. No evidence of new active infection at this time. 05/19/2019 the patient still feels poorly. However she is now on nasal cannula oxygen with adequate oxygenation. She's had an extensive hemodialysis since is very helpful for her volume overload. She still quite weak and has poor appetite. It is related to Marinol was added which hopefully will improve her appetite. She complains of the poor appetite and early satiety. She does not feel better in the next short period of time would consider endoscopy to evaluate stomach and esophagus. No active infection at this time. Current Visit: Yes Status: Acute Code(s): N39.0 - URINARY TRACT INFECTION, SITE NOT SPECIFIED SNOMED Code(s): 45476995
[2019-05-20] MEDS: METOCLOPRAMIDE 5 MG/ML 2 ML VIAL IVP SCH ×3 (00:01→12:49)
[2019-05-20 07:06] LABS: Glucose,Whole Blood 94 mg/dL (75-99)
[2019-05-20] MEDS: INSULIN ASPART (NovoLOG) 100 UNIT/ML VIAL SQ SCH ×2 (07:16→15:56)
[2019-05-20] MEDS: DRONABINOL 2.5 MG CAP PO SCH (07:16)
[2019-05-20 07:40] LABS: Calcium 6.9 mg/dL (8.4-10.2); Potassium 4.1 mmol/L (3.5-5.1)
[2019-05-20] MEDS: BUDESONIDE 1 MG/2 ML NEBU INHALATION SCH (07:44)
[2019-05-20] MEDS: FORMOTEROL FUMARATE 20 MCG/2 ML NEBU INHALATION SCH (07:45)
[2019-05-20] MEDS: IPRATROPIUM-ALBUTEROL 3 ML NEB INHALATION SCH ×3 (07:45→15:54)
[2019-05-20 08:10] LABS: Phosphorus 6.2 mg/dL (2.5-4.5)
[2019-05-20 08:52] LABS: Anisocytosis Moderate; HCT 24.8 % (34.0-46.0); HGB 7.8 gm/dL (11.4-16.0); MCH 33.3 pg (25.0-35.0); MCHC 31.4 g/dL (31.0-37.0); Macrocytosis Marked; Mean Platelet Volume 12.5; RBC 2.34 m/uL (3.80-5.40); RDW 22.1 % (11.5-15.5)
[2019-05-20 08:54] LABS: Platelet Count 51 k/uL (150-450)
[2019-05-20 09:02] LABS: Band Neutrophils % 2 %; Eosinophils # (M) 0.06 k/uL (0-0.7); Monocytes # (M) 0.12 k/uL (0-1.0); Myelocytes # (M) 0.06 k/uL (0); Myelocytes % 1 %; Neutrophils % (M) 90 %; Nucleated Red Blood Cells 1 /100 WBC (0-0); Polychromasia Present; Total Cells Counted 200; WBC 5.9 k/uL (3.8-10.6)
[2019-05-20 09:03] LABS: Toxic Vacuolation Present
[2019-05-20] MEDS: CALCIUM CARBONATE 500 MG CHEWABLE PO SCH (09:46)
[2019-05-20] MEDS: SUCRALFATE 1 GM TAB PO SCH ×2 (09:46→12:50)
[2019-05-20] MEDS: ASPIRIN 81 MG PO SCH (09:46)
[2019-05-20] MEDS: AMIODARONE 200 MG TAB PO SCH (09:46)
[2019-05-20] MEDS: CALCITRIOL 0.25 MCG CAP PO SCH (09:46)
[2019-05-20] MEDS: PANTOPRAZOLE 40 MG/10 ML VIAL IVP SCH (09:47)
[2019-05-20] MEDS: ONDANSETRON 4 MG/2 ML VIAL IVP PRN ×2 (09:47→12:59)
[2019-05-20] MEDS: METOPROLOL SUCCINATE (ER) 50 MG TAB.ER.24H PO SCH (09:47)
[2019-05-20] MEDS: GABAPENTIN 300 MG CAP PO SCH (10:30)
[2019-05-20] MEDS: FLUTICASONE 50MCG/SPRAY NASAL 16GM EA NOSTRIL SCH (10:30)
--- NOTE | 2019-05-20 11:24 | PN ---
PROGRESS NOTE Patient is seen for followup for acute kidney injury. She has not had much urine output. The patient was dialyzed yesterday and she is eating slightly better now. PHYSICAL EXAMINATION: On examination, blood pressure is 117/53, heart rate 66 per minute. She is afebrile. EXAMINATION OF THE HEART: S1 and S2. EXAMINATION OF THE LUNGS: Bilateral breath sounds are heard. ABDOMEN: Soft, obese. Examination of the lower extremities shows no significant edema. KEYMODULE ASSEMBLY SUPERVISOR EXAM: Grossly intact. LABS: Labs show sodium 131, potassium 4.1, BUN 54, serum creatinine 4.73, hemoglobin 7.8 g/dL. ASSESSMENT: 1. Acute kidney injury oliguric and dialysis dependent. We will plan for hemodialysis in a.m. I will check a bladder scan to see if patient has any evidence of urine retention if she is making more urine. 2. Sepsis and bacteremia, now resolved. 3. Urinary tract infection with Enterococcus faecalis, status post antibiotics. 4. Congestive heart failure, fluid overload, now significantly improved. 5. Anemia. No active bleeding noted, maintained on Aranesp. 6. Hypocalcemia, maintained on Rocaltrol. 7. Atrial fibrillation with rapid ventricular response, now with controlled ventricular response. 8. Elevated liver enzymes, currently off of statins. Check a CMP again in a.m. PLAN: Hemodialysis in a.m. Check a comprehensive metabolic panel to follow the liver enzymes in a.m. Check bladder scan to assess for any urine output and now that patient is eating we can add phosphate binders. MMODL / IJN: [id number] /
--- NOTE | 2019-05-20 11:57 | P.PN ---
Subjective Progress Note Date: 05/20/19 On 05/20/2019 the patient is awake and alert and following commands or answering questions. Afebrile and hemodynamically stable. She is currently on no antibiotics. Minimal amount of urine output. Her last hemodialysis session was yesterday. The patient shows no signs of any respiratory distress and currently she is on room air oxygen. She was started on Marinol yesterday which also improved appetite and patient was able to eat a few portions on yesterday's evaluation. No other significant events. She is going to be set up for rehabilitation on outpatient basis. Medication was reviewed. No other changes from the pulmonary ordered a critically care standpoint. Her current cardiac rhythm is sinus. Objective - Vital Signs Vital signs: Vital Signs Temp 97.6 F 05/20/19 00:00 Pulse 88 05/20/19 10:58 Resp 14 05/20/19 04:00 BP 117/53 05/20/19 04:00 Pulse Ox 97 05/20/19 04:00 Intake & Output 05/19/19 05/20/19 05/20/19 18:59 06:59 18:59 Intake Total 350 120 Output Total 1800 0 Balance -1450 120 Weight 138 kg 133.8 kg Intake: Intake, IV Titration 100 Amount Calcium Gluconate 1 gm In 100 Sodium Chloride 0.9% 100 ml @ 100 mls/hr IVPB ONCE ONE Rx#:[id number] Oral 250 120 Output: Urine 0 0 Hemodialysis 1800 - Exam GENERAL EXAM: Alert, pleasant, 64-year-old female patient, on room air oxygen and she says no signs of any respiratory distress. HEAD: Normocephalic/atraumatic. EYES: Normal reaction of pupils, equal size. Conjunctiva pink, sclera white. NOSE: Clear with pink turbinates. THROAT: No erythema or exudates. NECK: No masses, no JVD, no thyroid enlargement, no adenopathy. CHEST: No chest wall deformity. Symmetrical expansion. Right upper chest hemodialysis permacath is in place LUNGS: Equal air entry with clear breath sounds, limited crackles at bases CVS: Regular rate and rhythm, normal S1 and S2, no gallops, no murmurs, no rubs ABDOMEN: Soft, nontender. No hepatosplenomegaly, normal bowel sounds, no guarding or rigidity. EXTREMITIES: No clubbing, no edema, no cyanosis, 2+ pulses and upper and lower extremities. MUSCULOSKELETAL: Muscle strength and tone normal. SPINE: No scoliosis or deformity SKIN: No rashes CENTRAL NERVOUS SYSTEM: No focal deficits, tone is normal in all 4 extremities. PSYCHIATRIC: Alert and oriented -3. Appropriate affect. Intact judgment and insight. - Labs CBC & Chem 7: 05/20/19 07:14 05/20/19 07:14 Labs: Abnormal Lab Results - Last 24 Hours (Table) 05/19/19 05/20/19 05/20/19 Range/Units 17:01 07:14 07:14 RBC 2.34 L (3.80-5.40) m/uL Hgb 7.8 L (11.4-16.0) gm/dL Hct 24.8 L (34.0-46.0) % MCV 106.0 H (80.0-100.0) fL RDW 22.1 H (11.5-15.5) % Plt Count 51 L (150-450) k/uL Lymphocytes # (Manual) 0.30 L (1.0-4.8) k/uL Myelocytes # (Manual) 0.06 H (0) k/uL Nucleated RBCs 1 H (0-0) /100 WBC Macrocytosis Marked A Sodium 131 L (137-145) mmol/L Chloride 96 L (98-107) mmol/L BUN 54 H (7-17) mg/dL Creatinine 4.73 H (0.52-1.04) mg/dL POC Glucose (mg/dL) 115 H (75-99) mg/dL Calcium 6.9 L (8.4-10.2) mg/dL Phosphorus (2.5-4.5) mg/dL 05/20/19 Range/Units 07:14 RBC (3.80-5.40) m/uL Hgb (11.4-16.0) gm/dL Hct (34.0-46.0) % MCV (80.0-100.0) fL RDW (11.5-15.5) % Plt Count (150-450) k/uL Lymphocytes # (Manual) (1.0-4.8) k/uL Myelocytes # (Manual) (0) k/uL Nucleated RBCs (0-0) /100 WBC Macrocytosis Sodium (137-145) mmol/L Chloride (98-107) mmol/L BUN (7-17) mg/dL Creatinine (0.52-1.04) mg/dL POC Glucose (mg/dL) (75-99) mg/dL Calcium (8.4-10.2) mg/dL Phosphorus 6.2 H (2.5-4.5) mg/dL Assessment and Plan Plan: 1 dyspnea multifactorial related to underlying sepsis/UTI/renal failure/anemia. The patient also had coronary megaly and pulmonary vessel congestion. The chest x-ray from yesterday showed clearing of the lungs with clear pleural spaces. The patient is currently on room air oxygen and the patient shortness of breath is improved. 2 acute kidney injury secondary to ATN, possible vancomycin nephrotoxicity. In addition to sepsis. The patient is currently dialysis dependent and the patient underwent dialysis on a daily basis with permacath in the right upper chest/IJ area. The patient's last hemodialysis session was yesterday and no dialysis will be done today. 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 Plan Continue supportive care. Aggressive physical therapy and rehabilitation. Transfer this patient to a medical surgical floor. The medication was reviewed. No other changes from my standpoint.
[2019-05-20 12:36] LABS: Glucose,Whole Blood 122 mg/dL (75-99)
[2019-05-20] MEDS: HYDROcodone/APAP 5-325MG 1 EACH TAB PO PRN (12:50)
--- NOTE | 2019-05-20 13:47 | P.DS ---
Providers Date of admission: 04/30/19 13:59 Expected date of discharge: 05/20/19 Attending physician: Raymond Rogers Consults: 04/30/19 13:58 Consult Physician Routine Consulting Provider: [place] Consult Reason/Comments: known Do you want consulting provider notified?: Yes 04/30/19 16:14 Consult Physician Routine Consulting Provider: Jose Luis Zimmerman Consult Reason/Comments: pkty-bactermia, uti on chemo immuno supp Do you want consulting provider notified?: Yes 05/01/19 12:01 Consult Physician Routine Consulting Provider: Dipesh Tim Consult Reason/Comments: ARF Do you want consulting provider notified?: Yes 05/03/19 18:14 Consult Physician Routine Consulting Provider: Mone Rashid Consult Reason/Comments: sob Do you want consulting provider notified?: Yes 05/06/19 09:14 Consult Physician Routine Consulting Provider: Jesús Valladares Consult Reason/Comments: afib/chf Do you want consulting provider notified?: Yes 05/06/19 10:23 Consult Physician Stat Consulting Provider: Elder Salazar Consult Reason/Comments: dialysis catheter Do you want consulting provider notified?: Yes Primary care physician: Beata Quintero Hospital Course: Final diagnosis Acute right lobe pneumonia with sepsis and neutropenic sepsis Acute hypoxic respiratory failure, multifactorial, acute right lower lobe pneumonia, ARDS pancytopenia secondary to chemotherapy Carcinoma of the breast 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 Hyponatremia Increased creatinine with acute renal failure, possibly acute prerenal failure with acute tubular necrosis, right chest permacath with dialysis on Sunday/Sunday/Sunday Urinary tract infection, enterococcus faecalis Gram-positive bacteremia Acute on chronic systolic congestive heart failure; ejection fraction at 45-50% Atrial fibrillation with RVR Hypocalcemia increased AST Obesity with a body mass index of 59.8 History of hypertension History of hyperlipidemia History of CVA, left-sided History of breast surgery Remote history of nicotine dependence DVT prophylaxis Full code Discharge disposition Patient is being discharged in a stable condition with guarded prognosis to [facility] for continued PT/OT therapy. Patient will also be receiving dialysis on Mondays/Wednesdays/Fridays. Patient will follow-up with oncology in the outpatient setting once discharged. Total time taken is 35 min utes. History of present illness This is a 64-year-old woman who was admitted with multiple medical problems including acute pneumonia, CHF, acute renal failure and is requiring hemodialysis and was being closely monitored. During hospitalization patient was treated with IV antibiotics per infectious disease recommendations and completed the course and is currently not on any antibiotics at this time. Patient was transferred to the ICU for close monitoring and continued to have nausea and decrease in appetite. Patient was started on dialysis per nephrology and nephrology was following closely. Patient will continue on dialysis on Sunday/Sunday/Fridays and will follow-up with nephrology in the outpatient setting. Patient was receiving treatments with oncology in at this time those will be held until signs of improvement. Patient will follow-up in the outpatient setting with oncology upon discharge. Patient continue to have decrease in appetite and poor appetite with nausea and was started on Marinol and Megace concurrently diet is improving slightly. Patient was also working with PT/OT for continued strength and mobility and will continue in the outpatient setting. Current patient's condition is stable with improvement and patient is on room air with stable vital signs. Patient will be going to [facility] today. On exam vital signs are stable. Temp is 97.6F, blood pressure is 117/53, pulse is 66, respirations are 14, oxygen saturation is 97% on 2 L via nasal cannula. Cardio S1 and S2 are muffled. Respiratory system shows diminished breath sounds at the bases with mild diffuse crackles noted as well. Abdomen is soft, obese, nontender. Nervous system shows no focal deficits with mild diffuse weakness. Please refer to medication reconciliation sheet for a list of medications. Patient Condition at Discharge: Good Plan - Discharge Summary Discharge Rx Participant: No New Discharge Prescriptions: New Darbepoetin Doroteo [Aranesp] 40 mcg SQ Q7D syringe Amiodarone [Cordarone] 200 mg PO BID tab Ipratropium-Albuterol Nebulize [Duoneb 0.5 mg-3 mg/3 ml Soln] 3 ml INHALATION RT-QID ampul.neb Ipratropium-Albuterol Nebulize [Duoneb 0.5 mg-3 mg/3 ml Soln] 3 ml INHALATION RT-Q4H PRN ampul.neb PRN Reason: shortness of breath Dronabinol [Marinol] 5 mg PO AC-BID #3 cap Melatonin 3 mg PO HS tablet HYDROcodone/APAP 5-325MG [Crosby 5-325] 1 each PO Q4HR PRN #6 tab PRN Reason: Pain INSULIN ASPART (NovoLOG) [NovoLOG (formulary)] 0 unit SQ ACHS vial Formoterol Fumarate [Perforomist] 20 mcg INHALATION RT-BID nebu Budesonide [Pulmicort] 1 mg INHALATION RT-BID nebu Calcitriol [Rocaltrol] 0.25 mcg PO DAILY cap Sennosides-Docusate Sodium [Senokot-S] 2 each PO HS tab SILVER sulfADIAZINE CREAM [Silvadene Cream] 1 applic TOPICAL BID applic Metoprolol Succinate (ER) [Toprol XL] 50 mg PO DAILY tab.er.24h Calcium Carbonate [Tums] 1,000 mg PO TID chew ALPRAZolam [Xanax] 0.25 mg PO TID PRN #6 tab PRN Reason: Anxiety Continue Aspirin [Adult Low Dose Aspirin EC] 162 mg PO DAILY Atorvastatin [Lipitor] 40 mg PO HS Omeprazole 20 mg PO DAILY Montelukast [Singulair] 10 mg PO HS Fluticasone Nasal [place] [Flonase Nasal [place]] 1 spray EA NOSTRIL DAILY Albuterol Inhaler [Ventolin Hfa Inhaler] 2 puff INHALATION RT-QID PRN PRN Reason: Shortness Of Breath Sucralfate [Carafate] 1 gm PO ACHS #120 tablet Polyethylene Glycol 3350 [Miralax] 17 gm PO DAILY PRN #30 powd.pack PRN Reason: Constipation Gabapentin [Neurontin] 300 mg PO DAILY #6 cap Gabapentin [Neurontin] 600 mg PO HS #3 cap Discontinued Diltiazem HCl [Diltiazem 24Hr ER (CD)] 180 mg PO DAILY Potassium Chloride 20 meq PO DAILY Letrozole [Femara] 2.5 mg PO DAILY Furosemide [Lasix] 40 mg PO DAILY HYDROcodone/APAP 5-325MG [Crosby 5-325] 1 tab PO Q8HR PRN 3 Days #9 tab PRN Reason: Pain Palbociclib [Ibrance] 125 mg PO DIRECTED Discharge Medication List Aspirin [Adult Low Dose Aspirin EC] 162 mg PO DAILY 07/03/18 [History] Atorvastatin [Lipitor] 40 mg PO HS 07/03/18 [History] Albuterol Inhaler [Ventolin Hfa Inhaler] 2 puff INHALATION RT-QID PRN 03/05/19 [History] Fluticasone Nasal [place] [Flonase Nasal [place]] 1 spray EA NOSTRIL DAILY 03/05/19 [History] Montelukast [Singulair] 10 mg PO HS 03/05/19 [History] Omeprazole 20 mg PO DAILY 03/05/19 [History] Polyethylene Glycol 3350 [Miralax] 17 gm PO DAILY PRN #30 powd.pack 03/11/19 [Rx] Sucralfate [Carafate] 1 gm PO ACHS #120 tablet 03/11/19 [Rx] ALPRAZolam [Xanax] 0.25 mg PO TID PRN #6 tab 05/20/19 [Rx] Amiodarone [Cordarone] 200 mg PO BID tab 05/20/19 [Rx] Budesonide [Pulmicort] 1 mg INHALATION RT-BID nebu 05/20/19 [Rx] Calcitriol [Rocaltrol] 0.25 mcg PO DAILY cap 05/20/19 [Rx] Calcium Carbonate [Tums] 1,000 mg PO TID chew 05/20/19 [Rx] Darbepoetin Doroteo [Aranesp] 40 mcg SQ Q7D syringe 05/20/19 [Rx] Dronabinol [Marinol] 5 mg PO AC-BID #3 cap 05/20/19 [Rx] Formoterol Fumarate [Perforomist] 20 mcg INHALATION RT-BID nebu 05/20/19 [Rx] Gabapentin [Neurontin] 300 mg PO DAILY #6 cap 05/20/19 [Rx] Gabapentin [Neurontin] 600 mg PO HS #3 cap 05/20/19 [Rx] HYDROcodone/APAP 5-325MG [Crosby 5-325] 1 each PO Q4HR PRN #6 tab 05/20/19 [Rx] INSULIN ASPART (NovoLOG) [NovoLOG (formulary)] 0 unit SQ ACHS vial 05/20/19 [Rx] Ipratropium-Albuterol Nebulize [Duoneb 0.5 mg-3 mg/3 ml Soln] 3 ml INHALATION RT-Q4H PRN ampul.neb 05/20/19 [Rx] Ipratropium-Albuterol Nebulize [Duoneb 0.5 mg-3 mg/3 ml Soln] 3 ml INHALATION RT-QID ampul.neb 05/20/19 [Rx] Melatonin 3 mg PO HS tablet 05/20/19 [Rx] Metoprolol Succinate (ER) [Toprol XL] 50 mg PO DAILY tab.er.24h 05/20/19 [Rx] SILVER sulfADIAZINE CREAM [Silvadene Cream] 1 applic TOPICAL BID applic 05/20/19 [Rx] Sennosides-Docusate Sodium [Senokot-S] 2 each PO HS tab 05/20/19 [Rx] Follow up Appointment(s)/Referral(s): Roland Nieto MD [STAFF PHYSICIAN] - 06/11/19 10:30 am (This is appt to see Doctor and get injections) Beata Quintero MD [Primary Care Provider] - 1-2 days Activity/Diet/Wound Care/Special Instructions: Activity as tolerated Continue current medications Continue current diet Continue with dialysis on Sunday/Sunday/Fridays Follow-up with primary care upon discharge Follow-up with oncology upon discharge
[2019-05-20 15:07] VITALS: BP 106/47; PULSE 72; RESP 23; TEMP 98.2
--- NOTE | 2019-05-20 16:18 | P.PN ---
Subjective Progress Note Date: 05/20/19 Principal diagnosis: Bacteremia Discharge to rehab today Objective - Vital Signs Vital signs: Vital Signs Temp 98.2 F 05/20/19 12:00 Pulse 72 05/20/19 15:00 Resp 23 05/20/19 15:00 BP 106/47 05/20/19 15:00 Pulse Ox 96 05/20/19 15:00 Intake & Output 05/19/19 05/20/19 05/20/19 18:59 06:59 18:59 Intake Total 350 120 472 Output Total 1800 0 Balance -1450 120 472 Weight 138 kg 133.8 kg Intake: Intake, IV Titration 100 Amount Calcium Gluconate 1 gm In 100 Sodium Chloride 0.9% 100 ml @ 100 mls/hr IVPB ONCE ONE Rx#:[id number] Oral 250 120 472 Output: Urine 0 0 Hemodialysis 1800 Other: # Voids 260 - Exam General: Alert and Oriented x3, No Acute Distress, lethargic Head: Normocytic, Atraumatic Neck: Supple Mouth: No Lesions, No Thrush Eyes: Non-sclerotic No Palpable cervical, supraclavicular, axillary adenopathy Heart:Iregg irreg Lungs: Increased effort, Diminished, bipap Abdomen: Soft, Non-Distended, Non-Tended, BSx4 Neurological: No Focal Defects: No sensory or motor deficits noted - Labs CBC & Chem 7: 05/20/19 07:14 05/20/19 07:14 Labs: Abnormal Lab Results - Last 24 Hours (Table) 05/19/19 05/20/19 05/20/19 Range/Units 17:01 07:14 07:14 RBC 2.34 L (3.80-5.40) m/uL Hgb 7.8 L (11.4-16.0) gm/dL Hct 24.8 L (34.0-46.0) % MCV 106.0 H (80.0-100.0) fL RDW 22.1 H (11.5-15.5) % Plt Count 51 L (150-450) k/uL Lymphocytes # (Manual) 0.30 L (1.0-4.8) k/uL Myelocytes # (Manual) 0.06 H (0) k/uL Nucleated RBCs 1 H (0-0) /100 WBC Macrocytosis Marked A Sodium 131 L (137-145) mmol/L Chloride 96 L (98-107) mmol/L BUN 54 H (7-17) mg/dL Creatinine 4.73 H (0.52-1.04) mg/dL POC Glucose (mg/dL) 115 H (75-99) mg/dL Calcium 6.9 L (8.4-10.2) mg/dL Phosphorus (2.5-4.5) mg/dL 05/20/19 05/20/19 Range/Units 07:14 12:24 RBC (3.80-5.40) m/uL Hgb (11.4-16.0) gm/dL Hct (34.0-46.0) % MCV (80.0-100.0) fL RDW (11.5-15.5) % Plt Count (150-450) k/uL Lymphocytes # (Manual) (1.0-4.8) k/uL Myelocytes # (Manual) (0) k/uL Nucleated RBCs (0-0) /100 WBC Macrocytosis Sodium (137-145) mmol/L Chloride (98-107) mmol/L BUN (7-17) mg/dL Creatinine (0.52-1.04) mg/dL POC Glucose (mg/dL) 122 H (75-99) mg/dL Calcium (8.4-10.2) mg/dL Phosphorus 6.2 H (2.5-4.5) mg/dL Assessment and Plan Plan: Pancytopenia: - Secondary to chemotherapy with ibrance and Radiation - Hold chemotherapy at this time - Overall levels Stable - Hemoglobin 7.5 and platlets 54K today, no transfusions needed. Acute Renal Insufficiency: - Dialysis per Nephrology Metastatic Breast cancer - Bone - ?Progression - Xgeva,Faslodex and Ibrance recently prescribed at progression - XRT to spine recently completed - Chemo and Medications on hold at this time until resolution of current issues Neoplastic Related Pain: - Continue current pain regimen - Add bowel protocol. Acute Respiratory failure: - In ICU Care - Pulmonary Following Atrial Fibrillation with RVR: - Cardiology Overall stable. COntinue supportive ICU care and plan discharge to Rehab and to follow-up with Dr. Nieto after discharge to rehab I have completed the full history and physical of this patient and developed the complete impression and plan, Agree with Afia BARBOSA, dictated as a scribe
[2019-05-20] MEDS ORDERED: CALCIUM ACETATE 667 MG CAP PO SCH (17:30)
[2019-05-20] MEDS ORDERED: PANTOPRAZOLE 40 MG TABLET PO SCH (21:00)
--- NOTE | 2019-05-20 21:15 | P.PN ---
Subjective Progress Note Date: 05/20/19 Pleasant 63-year-old female is a complex past medical history regarding her breast carcinoma. 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 Because of increasing pain and neurological difficulties she was evaluated was treated with radiation therapy to the cervical and thoracic spine . She Developed extensive radiation dermatitis and esophagitis. She was hospitalized [facility] and with treatment of the skin and esophagitis she had marked improvement. She has had a subsequent hospitalization at the outside facility where she had a urinary tract infection. She now presents to Hospital feeling poorly with evidence significant weakness with fever 102, chills and evidence of new abnormality. Chest x-ray acute renal failure and generalized malaise. With fluid resuscitation antibiotic therapy she started to feel somewhat better. Cultures are in process with concerns to urinary tract infection as a source of the current bout of sepsis. 05/02/2017 the patient's renal failure continues but her fevers improved. With the elevated vancomycin level this is put on hold. 05/04/2019 patient continues to have increasing creatinine, and feels poorly with her acute renal failure. She is having some shakiness to her arms and legs, weakness and poor appetite. However is not having nausea or emesis. All the food does taste poorly. She's had some increased difficulties with her oral cavity possibly thrush. 05/05/2019 the patient has had a significant worsening of her status overnight. She became profoundly short of breath and required transfusions and its care unit where she's now been placed on BiPAP has been titrated down to 50% now she is feeling considerably better bacillin well. She's having no chest pains. She was seen by cardiology there is evidence of volume overload as well as worsening of her aortic stenosis and regurgitation and pulmonary hypertension. The the treatment of failure has stabilized with no further increase of her creatinine. Vancomycin level is still therapeutic but falling. 05/06/2019 patient's volume status became more problematic, more short of breath She's been seen by the nephrology and dialysis is initiated. Approximately 2- 1/2 L of fluid have been removed and she is now less short of breath but emotional upset. It is her 64th birthday. 05/08/2019 patient has had further cycles of hemodialysis and is now approximately 10 L of fluid removed by ultrafiltration, is having some improvement over status but is still having a significant acute lung injury with the significant ongoing shortness of breath and BiPAP dependence. Her mood is poor and she is anxious about her overall care. 05/09/2019 patient no longer on bipap now on high flow O2 and doing well. fells better, and is hungry 05/12/2019 patient remains on Airvo lower rate. She is less short of breath awaappetite started to improve although relates that food does taste poorly. After last dialysis she is less short of breath. There are plans for a more permanent dialysis catheter. 05/13/2019 awaits HD catheter 05/14/2019 has had her hemodialysis catheter placed. She's feeling 70% better today. The best she has felt in quite some time. She's left short of breath and has some appetite. 05/16/2019 patient is feeling better. Has had a bout of nausea and emesis but is now able to eat some sherbet. Her pain is well controlled at this time. Her shortness of breath is considerably improved she's now on 5 L nasal cannula and is off the airvo. 05/19/2019 patient is feeling better. With the intensive care unit. She is on nasal cannula oxygen with adequate oxygenation. She is not eating well and has poor appetite. 05/20/2019 now improved and will transfer to rehab for improvement so she can restart chemo if renal failure resolves Objective - Vital Signs Vital signs: Vital Signs Temp 98.2 F 05/20/19 12:00 Pulse 72 05/20/19 15:00 Resp 23 05/20/19 15:00 BP 106/47 05/20/19 15:00 Pulse Ox 96 05/20/19 15:00 Intake & Output 05/20/19 05/20/19 05/21/19 06:59 18:59 06:59 Intake Total 120 472 Output Total 0 Balance 120 472 Weight 133.8 kg Intake: Oral 120 472 Output: Urine 0 Other: # Voids 260 - Exam 63-year-old woman presents to Hospital feeling poorly now with a significant worsening shortness of breath, BiPAP no longer used but on high richard oxygen HEENT: Anicteric conjunctiva are pink and moist nasal mucosa grossly intact without significant lesions, and the very posterior aspect of the pharynx is now some mild white coating consistent with early thrush. Neck: The neck is supple without significant lymphadenopathy or thyromegaly. Lungs: There is symmetrical air entry with coarse crackles and wheezing to the lung chiang basilar crackles are heard Heart: Regular with the 2/6 systolic murmur left sternal border Abdomen: Obese, Positive bowel sounds soft minimal tenderness is noted in the right upper quadrant without palpable masses or organomegaly. There was no guarding or rebound. Extremities: The upper extremities have excellent pulses they are symmetric, no significant petechiae or telangiectasia. No splinter hemorrhages were noted. The lower extremities have trace edema pulses 2+ and symmetric Neuro: Awake alert oriented to person place and time. There are no acute new gross focal sensory motor deficits. Skin reveals evidence of the resolution of the radiation dermatitis does have some residual color change but there is nothing ulcer. She is not having any further difficulties with the esophagitis either although does have a bit of dry mouth and throat. The right femoral dialysis catheter was removed and now has the right internal jugular catheter in place. Neither site is tender. - Labs CBC & Chem 7: 05/20/19 07:14 05/20/19 07:14 Labs: Abnormal Lab Results - Last 24 Hours (Table) 05/20/19 05/20/19 05/20/19 Range/Units 07:14 07:14 07:14 RBC 2.34 L (3.80-5.40) m/uL Hgb 7.8 L (11.4-16.0) gm/dL Hct 24.8 L (34.0-46.0) % MCV 106.0 H (80.0-100.0) fL RDW 22.1 H (11.5-15.5) % Plt Count 51 L (150-450) k/uL Lymphocytes # (Manual) 0.30 L (1.0-4.8) k/uL Myelocytes # (Manual) 0.06 H (0) k/uL Nucleated RBCs 1 H (0-0) /100 WBC Macrocytosis Marked A Sodium 131 L (137-145) mmol/L Chloride 96 L (98-107) mmol/L BUN 54 H (7-17) mg/dL Creatinine 4.73 H (0.52-1.04) mg/dL POC Glucose (mg/dL) (75-99) mg/dL Calcium 6.9 L (8.4-10.2) mg/dL Phosphorus 6.2 H (2.5-4.5) mg/dL 05/20/19 Range/Units 12:24 RBC (3.80-5.40) m/uL Hgb (11.4-16.0) gm/dL Hct (34.0-46.0) % MCV (80.0-100.0) fL RDW (11.5-15.5) % Plt Count (150-450) k/uL Lymphocytes # (Manual) (1.0-4.8) k/uL Myelocytes # (Manual) (0) k/uL Nucleated RBCs (0-0) /100 WBC Macrocytosis Sodium (137-145) mmol/L Chloride (98-107) mmol/L BUN (7-17) mg/dL Creatinine (0.52-1.04) mg/dL POC Glucose (mg/dL) 122 H (75-99) mg/dL Calcium (8.4-10.2) mg/dL Phosphorus (2.5-4.5) mg/dL Laboratory Results WBC 5.9 k/uL (3.8-10.6) 05/20/19 07:14 RBC 2.34 m/uL (3.80-5.40) L 05/20/19 07:14 Hgb 7.8 gm/dL (11.4-16.0) L 05/20/19 07:14 Hct 24.8 % (34.0-46.0) L 05/20/19 07:14 MCV 106.0 fL (80.0-100.0) H 05/20/19 07:14 MCH 33.3 pg (25.0-35.0) 05/20/19 07:14 MCHC 31.4 g/dL (31.0-37.0) 05/20/19 07:14 RDW 22.1 % (11.5-15.5) H 05/20/19 07:14 Plt Count 51 k/uL (150-450) L 05/20/19 07:14 Neutrophils % 93 % 05/09/19 05:26 Neutrophils % (Manual) 90 % 05/20/19 07:14 Band Neutrophils % 2 % 05/20/19 07:14 Lymphocytes % 2 % 05/09/19 05:26 Lymphocytes % (Manual) 5 % 05/20/19 07:14 Monocytes % 3 % 05/09/19 05:26 Monocytes % (Manual) 2 % 05/20/19 07:14 Eosinophils % 1 % 05/09/19 05:26 Eosinophils % (Manual) 1 % 05/20/19 07:14 Basophils % 0 % 05/09/19 05:26 Metamyelocytes % 1 % 05/18/19 06:35 Myelocytes % 1 % 05/20/19 07:14 Neutrophils # 6.7 k/uL (1.3-7.7) 05/09/19 05:26 Neutrophils # (Manual) 5.40 k/uL (1.3-7.7) 05/20/19 07:14 Lymphocytes # 0.2 k/uL (1.0-4.8) L 05/09/19 05:26 Lymphocytes # (Manual) 0.30 k/uL (1.0-4.8) L 05/20/19 07:14 Monocytes # 0.2 k/uL (0-1.0) 05/09/19 05:26 Monocytes # (Manual) 0.12 k/uL (0-1.0) 05/20/19 07:14 Eosinophils # 0.1 k/uL (0-0.7) 05/09/19 05:26 Eosinophils # (Manual) 0.06 k/uL (0-0.7) 05/20/19 07:14 Basophils # 0.0 k/uL (0-0.2) 05/09/19 05:26 Metamyelocytes # (Man) 0.09 k/uL (0) H 05/18/19 06:35 Myelocytes # (Manual) 0.06 k/uL (0) H 05/20/19 07:14 Nucleated RBCs 1 /100 WBC (0-0) H 05/20/19 07:14 Manual Slide Review Performed 05/20/19 07:14 Hypersegmented Neuts Present 05/12/19 04:29 Toxic Granulation Present 05/15/19 04:41 Toxic Vacuolation Present 05/20/19 07:14 Large Platelets Present 05/18/19 06:35 Polychromasia Present 05/20/19 07:14 Hypochromasia Slight 05/19/19 03:55 Poikilocytosis (manual Present 05/16/19 04:30 Basophilic Stippling Present 05/13/19 04:18 Anisocytosis Moderate 05/20/19 07:14 Anisocytosis (manual) Present 05/19/19 03:55 Macrocytosis Marked A 05/20/19 07:14 Rouleaux Present 05/02/19 06:57 PT 10.7 sec (9.0-12.0) 05/01/19 12:37 INR 1.0 (<1.2) 05/01/19 12:37 APTT 26.3 sec (22.0-30.0) 05/01/19 12:37 Sample Site rrad 05/11/19 10:09 ABG pH 7.50 (7.35-7.45) H 05/11/19 10:09 ABG pCO2 30 mmHg (35-45) L 05/11/19 10:09 ABG pO2 82 mmHg (83-108) L 05/11/19 10:09 ABG HCO3 23 mmol/L (21-25) 05/11/19 10:09 ABG Total CO2 24 mmol/L (19-24) 05/11/19 10:09 ABG O2 Saturation 96.7 % (94-97) 05/11/19 10:09 ABG Base Excess -0.2 mmol/L 05/11/19 10:09 Arian Test Yes 05/11/19 10:09 FiO2 50 % 05/11/19 10:09 Sodium 131 mmol/L (137-145) L 05/20/19 07:14 Potassium 4.1 mmol/L (3.5-5.1) 05/20/19 07:14 Chloride 96 mmol/L (98-107) L 05/20/19 07:14 Carbon Dioxide 23 mmol/L (22-30) 05/20/19 07:14 Anion Gap 12 mmol/L 05/20/19 07:14 BUN 54 mg/dL (7-17) H 05/20/19 07:14 Creatinine 4.73 mg/dL (0.52-1.04) H 05/20/19 07:14 Est GFR (CKD-EPI)AfAm 11 (>60 ml/min/1.73 sqM) 05/20/19 07:14 Est GFR (CKD-EPI)NonAf 9 (>60 ml/min/1.73 sqM) 05/20/19 07:14 Glucose 79 mg/dL (74-99) 05/20/19 07:14 POC Glucose (mg/dL) 122 mg/dL (75-99) H 05/20/19 12:24 POC Glu [employer] ID Rubia Honeycutt 05/20/19 12:24 Plasma Lactic Acid Jon 0.9 mmol/L (0.7-2.0) 05/05/19 08:15 Calcium 6.9 mg/dL (8.4-10.2) L 05/20/19 07:14 Ionized Calcium Peter 3.9 mg/dL (4.5-5.3) L 05/09/19 05:26 Phosphorus 6.2 mg/dL (2.5-4.5) H 05/20/19 07:14 Magnesium 2.0 mg/dL (1.6-2.3) 05/20/19 07:14 Iron 246 ug/dL (50-170) H 05/10/19 04:38 TIBC 273 ug/dL (228-460) 05/10/19 04:38 Iron Saturation 90.11 (12.00-45.00) H 05/10/19 04:38 Total Bilirubin 1.1 mg/dL (0.2-1.3) 05/19/19 03:55 AST 69 U/L (14-36) H 05/19/19 03:55 ALT 78 U/L (9-52) H 05/19/19 03:55 Alkaline Phosphatase 118 U/L (38-126) 05/19/19 03:55 NT-Pro-B Natriuret Pep 68090 pg/mL 05/05/19 00:23 Total Protein 5.5 g/dL (6.3-8.2) L 05/19/19 03:55 Albumin 2.7 g/dL (3.5-5.0) L 05/19/19 03:55 Triglycerides 173 mg/dL (<150) H 05/09/19 05:26 Urine Color Dark Brown 04/30/19 13:00 Urine Appearance Turbid (Clear) H 04/30/19 13:00 Urine pH 5.0 (5.0-8.0) 04/30/19 13:00 Ur Specific [place] 1.016 (1.001-1.035) 04/30/19 13:00 Urine Protein 2+ (Negative) H 04/30/19 13:00 Urine Glucose (UA) Negative (Negative) 04/30/19 13:00 Urine Ketones Negative (Negative) 04/30/19 13:00 Urine Blood Large (Negative) H 04/30/19 13:00 Urine Nitrite Negative (Negative) 04/30/19 13:00 Urine Bilirubin Negative (Negative) 04/30/19 13:00 Urine Urobilinogen 4.0 mg/dL (<2.0) 04/30/19 13:00 Ur Leukocyte Esterase Large (Negative) H 04/30/19 13:00 Urine RBC >182 /hpf (0-5) H 04/30/19 13:00 Urine WBC 40 /hpf (0-5) H 04/30/19 13:00 Urine WBC Clumps Occasional /hpf (None) H 04/30/19 13:00 Ur Squamous Epith Cells 13 /hpf (0-4) H 04/30/19 13:00 Urine Bacteria Moderate /hpf (None) H 04/30/19 13:00 Urine Mucus Occasional /hpf (None) H 04/30/19 13:00 Random Vancomycin 16.4 ug/mL 05/06/19 04:06 Serum ANNE-MARIE Interpret SEE NOTE 05/03/19 23:18 Urine Immunofixation SEE NOTE 05/03/19 14:30 LOUANN Screen NEGATIVE (NEGATIVE) 05/03/19 23:18 c-ANCA <1:20 Titer (<1:20) 05/03/19 23:18 p-ANCA <1:20 Titer (<1:20) 05/03/19 23:18 Double Strand DNA Ab NEGATIVE (NEGATIVE) 05/03/19 23:18 Anti-DNA Ab Interp <1.0 IU/mL 05/03/19 23:18 Complement C3 117.0 mg/dL (80.0-207.0) 05/03/19 23:18 Complement C4 16.4 mg/dL (10.0-53.0) 05/03/19 23:18 Tot Complement (CH50) 92 U/mL (42 - 95) 05/06/19 04:06 Hepatitis A IgM Ab Non-Reactive (Non-Reactive) 05/03/19 23:18 Hep Bs Antigen Non-Reactive (Non-Reactive) 05/06/19 14:00 Hep Bs Antibody Non-Reactive (Non-Reactive) 05/05/19 14:00 Hep Bs Antibody, Quant 3.5 mIU/mL 05/05/19 14:00 Hep B Core Total Ab Non-Reactive (Non-Reactive) 05/06/19 14:00 Hep B Core IgM Ab Non-Reactive (Non-Reactive) 05/03/19 23:18 Hep C IgG Ab Non-Reactive (Non-Reactive) 05/03/19 23:18 Influenza Type A RNA Not Detected (Not Detectd) 04/30/19 13:04 Influenza Type B (PCR) Not Detected (Not Detectd) 04/30/19 13:04 Microbiology 05/05/19 04:39 Blood Blood Culture - Final No Growth after 144 hours 05/05/19 04:12 Blood Blood Culture - Final No Growth after 144 hours 05/03/19 23:18 Blood Blood Culture - Final No Growth after 144 hours 04/30/19 11:43 Blood Blood Culture Gram Stain - Final 04/30/19 11:43 Blood Blood Culture - Final Staphylococcus lugdunenisis 05/02/19 09:21 Sputum Gram Stain - Final 05/02/19 09:21 Sputum Sputum Culture - Final Mary albicans 04/30/19 13:00 Urine,Voided Urine Culture - Final Enterococcus faecalis 04/30/19 11:43 Blood Blood Culture - Final Assessment and Plan (1) Acute renal failure Status: Acute Priority: High Code(s): N17.9 - ACUTE KIDNEY FAILURE, UNSPECIFIED SNOMED Code(s): 37630479 (2) Gram-positive cocci bacteremia Status: Acute Code(s): R78.81 - BACTEREMIA SNOMED Code(s): 946642170572 (3) Metastatic breast carcinoma Status: Chronic Priority: Medium Code(s): C50.919 - MALIGNANT NEOPLASM OF UNSP SITE OF UNSPECIFIED FEMALE BREAST SNOMED Code(s): 286841944 (4) Urinary tract infection Narrative/Plan: 63-year-old woman who has a history of the metastaticBreast carcinoma with evidence of significant metastasis to the skeleton as well as liver metastasis presents to Hospital feeling poorly with another bout of fever chills malaise occurring after her recent treatment with chemotherapy. Been seen by her oncology team and chemotherapy is now on hold. He does not have severe neutropenia and is being monitored. There is evidence of urinary tract infection is likely etiology her current sepsis and laboratories: Positive blood culture with gram-positive cocci. She's had several prior blood cultures with gram-positive cocci that has been staphylococcus ludegensis, which is a coagulase-negative staph and since the patient does not have an indwelling rose ter has not been thought to be a significant pathogen. Somewhat concerning if it continues to be found. Urine culture is showing evidence of gram-positive cocci and constantly vancomycin therapy is being utilized as well as Rocephin until there is further data. She has developed acute renal failure and consequently very close monitoring with vancomycin therapy is indicated we'll try to limit the dosing as much as possible. Nephrology will be seeing her for her acute increase of her creatinine to 3.46. 2-D echocardiogram has been requested and she shall be monitored. 05/02/2018 dear culture now shows evidence of enterococcus blood cultures are growing coagulase negative staph. Antibiotic therapy will now be D escalated. The Rocephin and vancomycin are discontinued. Vancomycin level currently is elevated. Once his level falls to less than 15 will then be able to initiate alternative antibiotic therapy for the treatment of the enterococcus. If blood cultures remain negative would not need further IV antibiotic therapy. 05/04/2019 the patient continues to feel very poorly with evidence of her acute renal failure the toxicity associated with that. The vancomycin level has shira pped to 23 and likely will be subtherapeutic and the next day or so. At that time with initiate by therapy to complete the treatment of her enterococcal infection. Nephrology is following and continue to contemplate the need for renal replacement therapy. The patient's blood cultures are being repeated to ensure that the foot was negative staph is not persistent, is noted he has been seen on several occasions in the past, but she does not have any indwelling catheters. 05/05/2019 the patient has had a significant worsening of her status development of respiratory failure requiring BiPAP therapy with evidence of congestive heart failure and worsening underlying cardiac function. Aortic stenosis and regurgitation symptoms considerably worse in her pulmonary hypertension is worse. With diuresis she is having less short of breath her BiPAP as tolerated 50% The vancomycin level will likely come subtherapeutic tomorrow and that will consider alteration of antibiotic therapy vancomycin is being utilized for the enterococcal urinary tract infection 05/06/2019 patient does feel slightly better with her hemodialysis it is started today. 2 half liters of fluid removed the profound shortness of breath is starting to improve. She will have dialysis again in the morning. Vancomycin level is being followed when subtherapeutic we'll need to consider if she needs further antibiotic therapy for her enterococcal urinary tract infection. She's had the multiple blood cultures with Staphylococcus ludigenesis overtime, she does not have an indwelling port. Most recent echocardiogram does not reveal evidence of endocarditis she does have significant valvular heart disease. When she is further improved may need a JERAMY. 05/08/2019 the patient is now had several cycles of hemodialysis and has had approximately 10 L of fluid removed. She still very short of breath requiring BiPAP. The patient is now had an adequate course of therapy for her enterococcal urinary tract infection vancomycin level is now trending toward subtherapeutic. She does not require further antibiotic therapy at this time. Of note the patient's creatinine was elevated before the first dose of vancomycin therapy. 05/09/2019 doing much better today off bipap and less SOB she's been doing well with the hemodialysis and ultrafiltration removing approximately 13 L of fluid he gained some appetite and mood and affect are somewhat improve She Has had adequate treatment of her urinary tract infection and needs no further antibiotic therapy this time. 05/12/2019 the patient has had further dialysis and is slightly less fluid overloaded and has improved creatinine. She is less short of breath, appetite still poor but attempting to eat. Nephrology has been following and is doing well with renal replacement therapy, plan for change to a more permanent dialysis catheter to continue ongoing hemodialysis. The original infection has not been well treated and requires no further antibiotic therapy at this time. An admission was already having renal failure, potentially worsened by the initial vancomycin therapy for her sepsis at admission. 05/13/2019 stable, for HD catheter placement antibiotics have completed and is improving. Less SOB 05/14/2019 patient is feeling better. Said that she's felt in some time. Doing well with the new hemodialysis catheter. Antibiotic therapy is complete and is being monitored. 05/16/2019 patient has further improvement. Is now on nasal cannula oxygen. Blood short of breath. Still having some bouts of nausea and emesis usually right after hemodialysis as it happened today. Some Zofran will be helpful. Continue try to improve her diet and her physical activity. She is off antibiotic therapy and remained stable. No evidence of new active infection at this time. 05/19/2019 the patient still feels poorly. However she is now on nasal cannula oxygen with adequate oxygenation. She's had an extensive hemodialysis since is very helpful for her volume overload. She still quite weak and has poor appetite. It is related to Marinol was added which hopefully will improve her appetite. She complains of the poor appetite and early satiety. She does not feel better in the next short period of time would consider endoscopy to evaluate stomach and esophagus. No active infection at this time. 05/20/2019 the respiratory failure has resolved and is now off of oxygen and feels better. Hopefully rehab will allow independence and renal function will improve. NO active infection. Status: Acute Code(s): N39.0 - URINARY TRACT INFECTION, SITE NOT SPECIFIED SNOMED Code(s): 41313439
== END 2019-05-20 16:09 | DRG 871 ==
LOC: EC 10:48 → 3NMEDONC 13:59 → 2SICU 05-04 23:34
PROVIDERS: ADMIT Hospitalist; ATTEND Hospitalist
PROC: 05HD33Z Insertion of Infusion Device into Right Cephalic Vein, Percutaneous Approach (ICD-10-PCS; 2019-05-05)
PROC: 06HY33Z Insertion of Infusion Device into Lower Vein, Percutaneous Approach (ICD-10-PCS; principal; 2019-05-06)
PROC: B5181ZA Fluoroscopy of Superior Vena Cava using Low Osmolar Contrast, Guidance (ICD-10-PCS; 2019-05-14 14:00)
PROC: 0JH63XZ Insertion of Tunneled Vascular Access Device into Chest Subcutaneous Tissue and Fascia, Percutaneous Approach (ICD-10-PCS; 2019-05-14 14:00)
PROC: 02HV33Z Insertion of Infusion Device into Superior Vena Cava, Percutaneous Approach (ICD-10-PCS; 2019-05-14 14:00)
PROC: 5A1D70Z Performance of Urinary Filtration, Intermittent, Less than 6 Hours Per Day (ICD-10-PCS; 2019-05-14 14:00)
DX: A41.9 Sepsis, unspecified organism (principal); N17.0 Acute kidney failure with tubular necrosis; J18.9 Pneumonia, unspecified organism; D61.810 Antineoplastic chemotherapy induced pancytopenia; J96.01 Acute respiratory failure with hypoxia; J96.02 Acute respiratory failure with hypercapnia; I50.23 Acute on chronic systolic (congestive) heart failure; C78.7 Secondary malignant neoplasm of liver and intrahepatic bile duct; C79.51 Secondary malignant neoplasm of bone; E87.1 Hypo-osmolality and hyponatremia; Z68.43 Body mass index [BMI] 50.0-59.9, adult; E87.2 Acidosis; N39.0 Urinary tract infection, site not specified; I13.2 Hypertensive heart and chronic kidney disease with heart failure and with stage 5 chronic kidney disease, or end stage renal disease; I48.1 Persistent atrial fibrillation; D70.3 Neutropenia due to infection; T45.1X5A Adverse effect of antineoplastic and immunosuppressive drugs, initial encounter; C50.919 Malignant neoplasm of unspecified site of unspecified female breast; E66.9 Obesity, unspecified; E83.51 Hypocalcemia; E66.01 Morbid (severe) obesity due to excess calories; T36.8X5A Adverse effect of other systemic antibiotics, initial encounter; Z99.2 Dependence on renal dialysis; E87.5 Hyperkalemia; B96.89 Other specified bacterial agents as the cause of diseases classified elsewhere; B95.2 Enterococcus as the cause of diseases classified elsewhere; E86.0 Dehydration; B95.7 Other staphylococcus as the cause of diseases classified elsewhere; E87.6 Hypokalemia; E78.5 Hyperlipidemia, unspecified; I08.2 Rheumatic disorders of both aortic and tricuspid valves; I27.20 Pulmonary hypertension, unspecified; Z96.652 Presence of left artificial knee joint; Z79.899 Other long term (current) drug therapy; Z79.82 Long term (current) use of aspirin; Z79.811 Long term (current) use of aromatase inhibitors; Z79.51 Long term (current) use of inhaled steroids; Z79.01 Long term (current) use of anticoagulants; Z80.0 Family history of malignant neoplasm of digestive organs; Z82.49 Family history of ischemic heart disease and other diseases of the circulatory system; Z85.3 Personal history of malignant neoplasm of breast; Z86.73 Personal history of transient ischemic attack (TIA), and cerebral infarction without residual deficits; Z92.3 Personal history of irradiation; Z90.710 Acquired absence of both cervix and uterus; Z87.891 Personal history of nicotine dependence
CPT/HCPCS: 36410; 36415; 36571; 36600; 70450; 71045; 71046; 76770; 76937; 77001; 80048; 80053; 80074; 80202; 81001; 82330; 82565; 82805; 83540; 83550; 83605; 83735; 83880; 84100; 84132; 84478; 84520; 85025; 85027; 85610; 85730; 86038; 86160; 86162; 86225; 86255; 86334; 86335; 86704; 86706; 87040; 87070; 87077; 87086; 87186; 87205; 87340; 87502; 90935; 93306; 94640; 94660; 94667; 94668; 94760; 96361; 96365; 96375; 99285

== ENCOUNTER 2019-05-24 12:33 | Inpatient (IN) | payer OTHER ==
[2019-05-24] MEDS ORDERED: SODIUM CHLORIDE 0.9% 1,000 ML IV STA (13:21)
[2019-05-24] MEDS ORDERED: PANTOPRAZOLE 40 MG/10 ML VIAL IVP STA (13:23)
--- NOTE | 2019-05-24 13:37 | ED ---
General Adult HPI - General Chief complaint: Recheck/Abnormal Lab/Rx Stated complaint: GI Bleed Time Seen by Provider: 05/24/19 12:42 Source: patient, EMS, RN notes reviewed, old records reviewed (Previous discharge summary as well as medical records from [facility]) Mode of arrival: EMS Limitations: no limitations - History of Present Illness Initial comments: Patient is a pleasant 6 he 4-year-old female transferred from [facility] for GI hemorrhage and hypotension. Patient was recently in the hospital. Patient was transferred for level of care. Patient omits". Patient reportedly presented with decreased alertness. Patient denies feeling confused. Patient does have known stage IV breast cancer and is on dialysis. Patient was found to be Hemoccult positive. Patient had systolic blood pressure of 70. Patient was started on dopamine and [facility]. Patient has no further complaints at this time. - Related Data Home Medications Medication Instructions Recorded Confirmed Aspirin [Adult Low Dose Aspirin EC] 162 mg PO DAILY 07/03/18 05/24/19 Albuterol Inhaler [Ventolin Hfa 2 puff INHALATION RT-Q4H PRN 03/05/19 05/24/19 Inhaler] Fluticasone Nasal [place] [Flonase 1 spray EA NOSTRIL DAILY 03/05/19 05/24/19 Nasal [place]] INSULIN ASPART (NovoLOG) [NovoLOG See Protocol SQ ACHS 05/24/19 05/24/19 (formulary)] Previous Rx's Medication Instructions Recorded Polyethylene Glycol 3350 [Miralax] 17 gm PO DAILY PRN #30 powd.pack 03/11/19 Sucralfate [Carafate] 1 gm PO ACHS #120 tablet 03/11/19 ALPRAZolam [Xanax] 0.25 mg PO TID PRN #6 tab 05/20/19 Amiodarone [Cordarone] 200 mg PO BID tab 05/20/19 Calcium Carbonate [Tums] 1,000 mg PO TID chew 05/20/19 Dronabinol [Marinol] 5 mg PO AC-BID #3 cap 05/20/19 Gabapentin [Neurontin] 600 mg PO HS #3 cap 05/20/19 Ipratropium-Albuterol Nebulize 3 ml INHALATION RT-Q4H PRN 05/20/19 [Duoneb 0.5 mg-3 mg/3 ml Soln] ampul.neb Ipratropium-Albuterol Nebulize 3 ml INHALATION RT-QID ampul.neb 05/20/19 [Duoneb 0.5 mg-3 mg/3 ml Soln] Melatonin 3 mg PO HS tablet 05/20/19 Metoprolol Succinate (ER) [Toprol 50 mg PO DAILY tab.er.24h 05/20/19 XL] Ondansetron [Zofran] 4 mg PO Q8HR PRN #2 tab 05/20/19 Allergies Allergy/AdvReac Type Severity Reaction Status Date / Time No Known Allergies Allergy Verified 05/24/19 13:45 Review of Systems ROS Statement: Those systems with pertinent positive or pertinent negative responses have been documented in the HPI. ROS Other: All systems not noted in ROS Statement are negative. Constitutional: Denies: fever Eyes: Denies: eye pain ENT: Denies: ear pain Respiratory: Denies: cough Cardiovascular: Denies: chest pain Endocrine: Reports: fatigue Gastrointestinal: Denies: abdominal pain Genitourinary: Denies: dysuria Musculoskeletal: Denies: as per HPI Skin: Denies: rash Neurological: Denies: weakness Past Medical History Past Medical History: Cancer, CVA/TIA, Hyperlipidemia, Hypertension Additional Past Medical History / Comment(s): hx CVA left side 2018, Left breast cancer 1998, spine cancer 2018, KIT History of Any Multi-Drug Resistant Organisms: None Reported Past Surgical History: Breast Surgery, Hysterectomy, Joint Replacement Additional Past Surgical History / Comment(s): left knee replacement, several breast biopsies Past Anesthesia/Blood Transfusion Reactions: No Reported Reaction Past Psychological History: No Psychological Hx Reported Smoking Status: Former smoker - Past Family History Father Family Medical History: Cancer Additional Family Medical History / Comment(s): Father from cancer in the lining of his lungs. He had occupational chemical exposures. Mother Family Medical History: Cancer, Coronary Artery Disease (CAD) Additional Family Medical History / Comment(s): Mother had colon cancer with surgery. She also had heart disease. General Exam Limitations: no limitations General appearance: alert, in no apparent distress, obese Head exam: Present: normocephalic Eye exam: Present: normal appearance, PERRL ENT exam: Present: normal oropharynx Neck exam: Present: normal inspection Respiratory exam: Present: normal lung sounds bilaterally Cardiovascular Exam: Present: regular rate, normal rhythm Expanded Peripheral pulses: 2+: Radial (R), Radial (L), Femoral (R), Femoral (L), Dorsalis Pedis (R), Dorsalis Pedis (L) GI/Abdominal exam: Present: soft. Absent: distended, tenderness Extremities exam: Present: normal inspection Neurological exam: Present: alert. Absent: motor sensory deficit Psychiatric exam: Present: normal affect, normal mood Skin exam: Present: normal color, other (Ecchymosis right femoral region from reported recent central line placement. Patient also has a line in her right anterior chest.) Course Vital Signs 05/24/19 05/24/19 05/24/19 12:37 12:53 13:00 Temperature 98 F Pulse Rate 93 94 88 Respiratory 18 18 16 Rate Blood Pressure 77/40 88/54 78/46 O2 Sat by Pulse 94 L 95 99 Oximetry 05/24/19 05/24/19 05/24/19 13:15 13:45 13:51 Temperature Pulse Rate 81 85 84 Respiratory 18 18 Rate Blood Pressure 74/40 77/52 80/44 O2 Sat by Pulse 99 90 L Oximetry EKG Findings - EKG Comments: EKG Findings:: Normal sinus rhythm 95. [place] 174. QRS 84. QT 402. QTC 505. Left axis. Normal QRS. No acute ST change. Poor R-wave progression. Procedures - Central Line Placement Left Femoral Consent Obtained: verbal consent, written consent Patient Placed on Monitor/Pulse Ox: Yes MD Prep: mask, gown, gloves Central Line Prep: Chlorhexidine scrub, sterile drapes applied Local Anesthesia Used: Lidocaine 1% Central Line Lumen Inserted: triple Central Line Position: good blood return, all ports aspirated, flushed, capped, sutured in place with 3-0 nylon Dressing Applied: Tegaderm Patient Tolerated Procedure: well, no complications Complications: none Medical Decision Making - Medical Decision Making Patient reevaluated and updated. Case was discussed in detail with Dr. carlos, who will admit covering for Dr. Quintero. Case also discussed with Dr. Rashid, who will consult for critical care. - Lab Data Result diagrams: 05/24/19 13:10 Lab Results 05/24/19 05/24/19 05/24/19 Range/Units 13:10 13:10 13:10 Sodium 131 L (137-145) mmol/L Potassium 3.6 (3.5-5.1) mmol/L Chloride 94 L (98-107) mmol/L Carbon Dioxide 27 (22-30) mmol/L Anion Gap 10 mmol/L BUN 28 H (7-17) mg/dL Creatinine 3.57 H (0.52-1.04) mg/dL Est GFR (CKD-EPI)AfAm 15 (>60 ml/min/1.73 sqM) Est GFR (CKD-EPI)NonAf 13 (>60 ml/min/1.73 sqM) Glucose 116 H (74-99) mg/dL Plasma Lactic Acid Jon 1.4 (0.7-2.0) mmol/L Calcium 7.1 L (8.4-10.2) mg/dL Magnesium 1.9 (1.6-2.3) mg/dL Total Bilirubin 1.1 (0.2-1.3) mg/dL AST 79 H (14-36) U/L ALT 58 H (9-52) U/L Alkaline Phosphatase 110 (38-126) U/L Total Protein 5.1 L (6.3-8.2) g/dL Albumin 2.4 L (3.5-5.0) g/dL Blood Type Recheck No Previous Record Bld Type Recheck Status CABO Indicated - Radiology Data Radiology results: image reviewed (Chest x-ray shows concerns for CHF) Critical Care Time Critical Care Time: Yes Total Critical Care Time: 31 Disposition Clinical Impression: GI hemorrhage, Hypotension, CHF (congestive heart failure) Disposition: ADMITTED IP TO THIS [facility] Condition: Critical Is patient prescribed a controlled substance at d/c from ED?: No Referrals: Beata Quintero MD [Primary Care Provider] - 1-2 days Decision Time: 13:56
[2019-05-24 13:40] LABS: Anisocytosis Moderate; Basophils # (A) 0.1 k/uL (0-0.2); Basophils % (A) 1 %; Eosinophils # (A) 0.1 k/uL (0-0.7); Eosinophils % (A) 1 %; HCT 20.5 % (34.0-46.0); Hypochromasia Slight; Lymphocytes # (A) 0.3 k/uL (1.0-4.8); Lymphocytes % (A) 3 %; MCH 36.4 pg (25.0-35.0); MCHC 34.3 g/dL (31.0-37.0); Macrocytosis Marked; Monocytes # (A) 0.4 k/uL (0-1.0); Monocytes % (A) 5 %; Neutrophils # (A) 7.1 k/uL (1.3-7.7); Neutrophils % (A) 88 %; Poikilocytosis Moderate; RBC 1.93 m/uL (3.80-5.40); RDW 22.2 % (11.5-15.5); WBC 8.1 k/uL (3.8-10.6)
[2019-05-24] MEDS: NOREPINEPHRINE 32 MG in SODIUM CHLORIDE 0.9% 218 ML IV SCH (13:42)
--- NOTE | 2019-05-24 13:45 | XR ---
EXAMINATION TYPE: XR chest 1V portable DATE OF EXAM: 05/24/2019 HISTORY: weak. REFERENCE: Previous study dated 05/18/2019. FINDINGS: A large-bore, double-lumen catheter is in place via a right internal jugular approach. Its tip is in the right atrium. The heart is enlarged. There is vascular congestion and pulmonary edema. Some confluent edema is note d in the right upper lobe and right lung base. I could not exclude small effusions. IMPRESSION: INTERVAL DEVELOPMENT OF CONGESTIVE HEART FAILURE.
[2019-05-24 13:48] LABS: Albumin 2.4 g/dL (3.5-5.0); Calcium 7.1 mg/dL (8.4-10.2); Magnesium 1.9 mg/dL (1.6-2.3); Potassium 3.6 mmol/L (3.5-5.1); Total Bilirubin 1.1 mg/dL (0.2-1.3); Total Protein 5.1 g/dL (6.3-8.2)
[2019-05-24] MEDS ORDERED: NALOXONE 0.4 MG/ML 1 ML VIAL IV PRN (13:56)
[2019-05-24 14:08] LABS: Platelet Count 76 k/uL (150-450)
[2019-05-24 14:14] LABS: INR 1.1 (<1.2); Polychromasia Present; Prothrombin Time 11.6 sec (9.0-12.0)
[2019-05-24 14:24] LABS: Appearance,Urine Turbid (Clear); Bacteria,Urine Moderate /hpf; Bilirubin,Urine Negative (Negative); Blood,Urine Large (Negative); Budding Yeast,Urine Few /hpf; Color,Urine Dark Brown; Glucose,Urine (UA) Negative (Negative); Ketones,Urine Negative (Negative); Leukocyte Esterase,Urine Large (Negative); Mucus,Urine Few /hpf; Nitrite,Urine Negative (Negative); Protein,Urine 3+ (Negative); RBC,Urine >182 /hpf (0-5); Urobilinogen,Urine <2.0 mg/dL (<2.0); WBC,Urine >182 /hpf (0-5)
--- NOTE | 2019-05-24 14:58 | P.HPIM ---
History of Present Illness This is a pleasant 64 years old female with past medical history of hyperlipidemia, hypertension, CVA/TIA, metastatic left breast cancer in 1997 and the spine cancer in 2018, mostly its metastasis from her breast cancer, end- stage renal disease on dialysis, atrial fibrillation with RVR, she was recently discharged from the hospital for recent pneumonia and respiratory failure Patient was transferred from [facility] for GI hemorrhage and hypotension. At the [facility] she was confused and patient was found to be hypotensive and hypoxic with oxygen saturations at 78%, on her way to the hospital patient started waking up with supplemental oxygen. At first patient was sent to [facility] before she was transferred to the current hospital [facility] labs reviewed, it looks like BMP and liver enzymes were unremarkable, h emoglobin was 6.9, occult blood in the stools positive, urinalysis showing doubly BC of 30-50 with positive nitrite. EKG showing normal sinus rhythm at [address]-T changes with QTC 498 Patient blood pressure was hypotensive with 77/52, she's been afebrile. Labs show hemoglobin 7 with hematocrit of 20.5, wBC 8.1K and platelet count 76k. Sodium 131, creatinine 3.5, liver enzymes mildly elevated at 79 and 58. INR is 1.1. Urine analysis is indicating for infection Patient is getting 1 unit of blood transfusion Review of Systems CONSTITUTIONAL: No fever, no malaise, no fatigue. HEENT: No recent visual problems or hearing problems. Denied any sore throat. CARDIOVASCULAR: No orthopnea, PND, no palpitations, no syncope. PULMONARY: No shortness of breath, no cough, no hemoptysis. GASTROINTESTINAL: No diarrhea, no nausea, no vomiting, no abdominal pain. Normoactive bowel sounds. NEUROLOGICAL: No headaches, no weakness, no numbness. HEMATOLOGICAL: Denies any bleeding or petechiae. GENITOURINARY: Denies any burning micturition, frequency, or urgency. MUSCULOSKELETAL/RHEUMATOLOGICAL: Denies any joint pain, swelling, or any muscle pain. ENDOCRINE: Denies any polyuria or polydipsia. Past Medical History Past Medical History: Cancer, CVA/TIA, Hyperlipidemia, Hypertension Additional Past Medical History / Comment(s): hx CVA left side 2018, Left breast cancer 1997, spine cancer 2018, KIT History of Any Multi-Drug Resistant Organisms: None Reported Past Surgical History: Breast Surgery, Hysterectomy, Joint Replacement Additional Past Surgical History / Comment(s): left knee replacement, several breast biopsies Past Anesthesia/Blood Transfusion Reactions: No Reported Reaction Past Psychological History: No Psychological Hx Reported Smoking Status: Former smoker - Past Family History Father Family Medical History: Cancer Additional Family Medical History / Comment(s): Father from cancer in the lining of his lungs. He had occupational chemical exposures. Mother Family Medical History: Cancer, Coronary Artery Disease (CAD) Additional Family Medical History / Comment(s): Mother had colon cancer with surgery. She also had heart disease. Medications and Allergies Home Medications Medication Instructions Recorded Confirmed Type Aspirin [Adult Low Dose Aspirin EC] 162 mg PO DAILY 07/03/18 05/24/19 History Albuterol Inhaler [Ventolin Hfa 2 puff INHALATION RT-Q4H PRN 03/05/19 05/24/19 History Inhaler] Fluticasone Nasal [place] [Flonase 1 spray EA NOSTRIL DAILY 03/05/19 05/24/19 History Nasal [place]] Polyethylene Glycol 3350 [Miralax] 17 gm PO DAILY PRN #30 powd.pack 03/11/19 05/24/19 Rx Sucralfate [Carafate] 1 gm PO ACHS #120 tablet 03/11/19 05/24/19 Rx ALPRAZolam [Xanax] 0.25 mg PO TID PRN #6 tab 05/20/19 05/24/19 Rx Amiodarone [Cordarone] 200 mg PO BID tab 05/20/19 05/24/19 Rx Calcium Carbonate [Tums] 1,000 mg PO TID chew 05/20/19 05/24/19 Rx Dronabinol [Marinol] 5 mg PO AC-BID #3 cap 05/20/19 05/24/19 Rx Gabapentin [Neurontin] 600 mg PO HS #3 cap 05/20/19 05/24/19 Rx Ipratropium-Albuterol Nebulize 3 ml INHALATION RT-Q4H PRN 05/20/19 05/24/19 Rx [Duoneb 0.5 mg-3 mg/3 ml Soln] ampul.neb Ipratropium-Albuterol Nebulize 3 ml INHALATION RT-QID ampul.neb 05/20/19 Rx [Duoneb 0.5 mg-3 mg/3 ml Soln] Melatonin 3 mg PO HS tablet 05/20/19 05/24/19 Rx Metoprolol Succinate (ER) [Toprol 50 mg PO DAILY tab.er.24h 05/20/19 05/24/19 Rx XL] Ondansetron [Zofran] 4 mg PO Q8HR PRN #2 tab 05/20/19 05/24/19 Rx INSULIN ASPART (NovoLOG) [NovoLOG See Protocol SQ ACHS 05/24/19 05/24/19 History (formulary)] Allergies Allergy/AdvReac Type Severity Reaction Status Date / Time No Known Allergies Allergy Verified 05/24/19 13:45 Physical Exam Vitals: Vital Signs Temp Pulse Resp BP Pulse Ox 05/24/19 13:51 84 18 80/44 90 L 05/24/19 13:45 85 18 77/52 99 05/24/19 13:15 81 74/40 05/24/19 13:00 88 16 78/46 99 05/24/19 12:53 94 18 88/54 95 05/24/19 12:37 98 F 93 18 77/40 94 L Intake and Output 05/23/19 05/24/19 05/24/19 22:59 06:59 14:59 Other: Weight 131.542 kg GENERAL: The patient is alert and oriented x3, not in any acute distress. Obese HEENT: Pupils are round and equally reacting to light. EOMI. No scleral icterus. No conjunctival pallor. Normocephalic, atraumatic. No pharyngeal erythema. No thyromegaly. CARDIOVASCULAR: S1 and S2 present. No murmurs, rubs, or gallops. PULMONARY: Chest is clear to auscultation, no wheezing or crackles. ABDOMEN: Soft, nontender, nondistended, normoactive bowel sounds. No palpable organomegaly. MUSCULOSKELETAL: No joint swelling or deformity. EXTREMITIES: No cyanosis, clubbing, or pedal edema. NEUROLOGICAL: Gross neurological examination did not reveal any focal deficits. SKIN: No rashes. No petechiae Results CBC & Chem 7: 05/24/19 13:10 05/24/19 13:10 Labs: Abnormal Lab Results - Last 24 Hours (Table) 09/28/19 Range/Units 13:10 Sodium 131 L (137-145) mmol/L Chloride 94 L (98-107) mmol/L BUN 28 H (7-17) mg/dL Creatinine 3.57 H (0.52-1.04) mg/dL Glucose 116 H (74-99) mg/dL Calcium 7.1 L (8.4-10.2) mg/dL AST 79 H (14-36) U/L ALT 58 H (9-52) U/L Total Protein 5.1 L (6.3-8.2) g/dL Albumin 2.4 L (3.5-5.0) g/dL Assessment and Plan Assessment: Acute GI bleed Acute blood loss anemia Acute urinary tract infection Hypotension secondary to above, Possible combined septic and hemorrhagic shock recent pneumonia and respiratory failure End-stage renal disease on dialysis Atrial fibrillation Hypertension Hyperlipidemia CVA/TIA, with left hemiparesis Thrombocytopenia History of left breast cancer in 1997, status post breast surgery, metastatic to the spine and liver Plan: This is a pleasant 64 years old female who presents with GI bleed and hypotension with picture of shock. Central line placement, transfuse blood as needed. Monitor vitals and hemoglobin. Continue with Protonix IV. Consult critical care team and GI team and follow the recommendation. Continue with IV fluids. In the emergency room patient was started on Levophed and intravenous Protonix. Ceftriaxone. Several consultants were called from the emergency room including critical care, GI, cardiology, nephrology and oncology Labs and medication were reviewed.. Continue same treatment. Continue with symptomatic treatment. Resume home medication. Monitor lytes and vitals. DVT and GI prophylaxis. Further recommendations of the clinical course of the patient DVT prophylaxis: No heparin and review of GI bleed GI Prophylaxis: Protonix Prognosis is guarded
[2019-05-24] MEDS: SODIUM CHLORIDE 0.9% 1,000 ML IV SCH (15:06)
[2019-05-24] MEDS: PANTOPRAZOLE 40 MG/10 ML VIAL IV SCH ×2 (15:07→20:35)
--- NOTE | 2019-05-24 15:54 | P.CNPUL ---
History of Present Illness Consult date: 05/24/19 Chief complaint: GI bleeding History of present illness: This is a 64-year-old female patient got transferred from [facility] for GI bleed and hypotension. The patient is well-known to us. In fact she was recently discharged from the hospital after being treated with a combination of medical problems including shortness of breath, sepsis, renal failure and during the course of the treatment the patient developed an acute kidney injury/ATN and she became dialysis dependent. She was undergoing dialysis on a periodic basis. She was infected with staph in the blood and enterococcus in the urine and ultimately she was stabilized and discharged. Note that the patient has metastatic breast cancer and she has also skeletal metastases from breast cancer primary. She has CVA pneumonia left-sided the body, paroxysmal atrial fibrill ation and hyperlipidemia. Primary oncologist Dr. Wheat. She has known metastatic Breast Cancer. Most recently progression in spiny bone and status post radiation. Since radiation increased dysphagia, secretion, and pain. Increased Shortness of breath and chills. She has open burn from radiation. During the earlier presentation, the patient had pancytopenia related to treatment and the patient has been off treatment since. The patient has a combination of systolic and diastolic heart failure. She has moderate concentric LVH/hypertensive heart disease with a LV function of 45% and moderate degree of aortic sclerosis and moderate to severe aortic regurgitation and severe aortic stenosis also present on the echocardiogram that was done a few months back. She has a peak gradient across the valve of 76 mmHg and the patient also has secondary pulmonary hypertension with a right posterior systolic pressure estimated to be 73. During this current admission, hemoglobin was at 6.9. Stool for occult blood was positive. The patient presented with a BP of 77/52 and her hemoglobin was at 7.0. The patient was hypotensive and the triple-lumen catheter was established in the emergency department. The patient was started on IV fluids. The patient got transferred to the intensive care unit for further care.The chest x-ray showing acute pulmonary edema. She is currently on 4liters by nasal cannula and her pulse ox is ranging between 90-95%. Head there is a Hunter catheter in place and the patient has dark brownish chocolatey looking cloudy urine output. The patient is currently receiving a packed cell transfusion. She is also on norepinephrine infusion at 0.1 mcg/kg per minute. She is awake and alert. She states that during the last 2 sessions of hemodialysis, she became quite ill and she developed hypotension and it had to be discontinued at the end. Her last hemodialysis session was on Sunday. Currently she is afebrile. Mental status is within normal limits. She is following commands and has secretions appropriately. No focal neurological deficits. Some trace edema in lower extremities bilaterally. Review of Systems Constitutional: Reports weakness Eyes: denies as per HPI, denies blurred vision, denies bulging eye, denies decreased vision, denies diplopia, denies discharge, denies dry eye, denies irritation, denies itching, denies pain, denies photophobia, denies loss of peripheral vision, denies loss of vision, denies tunnel vision/blind spots Ears: deny: decreased hearing, ear discharge, earache, tinnitus Ears, nose, mouth and throat: Denies headache, Denies sore throat Cardiovascular: Reports decreased exercise tolerance, Reports dyspnea on exertion, Reports shortness of breath Respiratory: Reports dyspnea Gastrointestinal: Reports as per HPI (Dysphagia related to previous radiation therapy), and the patient also has positive occult blood and GI bleeding. Genitourinary: Reports as per HPI, the patient has cloudy dark brownish urine output Menstruation: Reports as per HPI Musculoskeletal: Reports as per HPI, Reports muscle weakness Musculoskeletal: bilateral: ankle swelling, absent: ankle pain, ankle stiffness Integumentary: Reports as per HPI Neurological: Reports as per HPI, Reports weakness and the patient has history of left-sided weakness related to CVA. Psychiatric: Reports as per HPI, no anxiety or depression. Endocrine: Reports as per HPI, Reports fatigue Hematologic/Lymphatic: Reports as per HPI, the patient has developed a new onset anemia with a drop in hemoglobin top of chronic anemia. Past Medical History Past Medical History: Cancer, CVA/TIA, Hyperlipidemia, Hypertension, Renal Disease Additional Past Medical History / Comment(s): hx CVA left side 2018, Left breast cancer 1997, spine cancer 2017, KIT currently chronic kidney failure and the patient is requiring hemodialysis periodically 3 times a week my recent hospitalization for sepsis History of Any Multi-Drug Resistant Organisms: None Reported Past Surgical History: Breast Surgery, Hysterectomy, Joint Replacement Additional Past Surgical History / Comment(s): left knee replacement, several breast biopsies Past Anesthesia/Blood Transfusion Reactions: No Reported Reaction Past Psychological History: No Psychological Hx Reported Smoking Status: Former smoker - Past Family History Father Family Medical History: Cancer Additional Family Medical History / Comment(s): Father from cancer in the lining of his lungs. He had occupational chemical exposures. Mother Family Medical History: Cancer, Coronary Artery Disease (CAD) Additional Family Medical History / Comment(s): Mother had colon cancer with surgery. She also had heart disease. Medications and Allergies Home Medications Medication Instructions Recorded Confirmed Type Aspirin [Adult Low Dose Aspirin EC] 162 mg PO DAILY 07/03/18 05/24/19 History Albuterol Inhaler [Ventolin Hfa 2 puff INHALATION RT-Q4H PRN 03/05/19 05/24/19 History Inhaler] Fluticasone Nasal Nordman [Flonase 1 spray EA NOSTRIL DAILY 03/05/19 05/24/19 History Nasal Nordman] Polyethylene Glycol 3350 [Miralax] 17 gm PO DAILY PRN #30 powd.pack 03/11/19 05/24/19 Rx Sucralfate [Carafate] 1 gm PO ACHS #120 tablet 03/11/19 05/24/19 Rx ALPRAZolam [Xanax] 0.25 mg PO TID PRN #6 tab 05/20/19 05/24/19 Rx Amiodarone [Cordarone] 200 mg PO BID tab 05/20/19 05/24/19 Rx Calcium Carbonate [Tums] 1,000 mg PO TID chew 05/20/19 05/24/19 Rx Dronabinol [Marinol] 5 mg PO AC-BID #3 cap 05/20/19 05/24/19 Rx Gabapentin [Neurontin] 600 mg PO HS #3 cap 05/20/19 05/24/19 Rx Ipratropium-Albuterol Nebulize 3 ml INHALATION RT-Q4H PRN 05/20/19 05/24/19 Rx [Duoneb 0.5 mg-3 mg/3 ml Soln] ampul.neb Ipratropium-Albuterol Nebulize 3 ml INHALATION RT-QID ampul.neb 05/20/19 05/24/19 Rx [Duoneb 0.5 mg-3 mg/3 ml Soln] Melatonin 3 mg PO HS tablet 05/20/19 05/24/19 Rx Metoprolol Succinate (ER) [Toprol 50 mg PO DAILY tab.er.24h 05/20/19 05/24/19 Rx XL] Ondansetron [Zofran] 4 mg PO Q8HR PRN #2 tab 05/20/19 05/24/19 Rx INSULIN ASPART (NovoLOG) [NovoLOG See Protocol SQ ACHS 05/24/19 05/24/19 History (formulary)] Allergies Allergy/AdvReac Type Severity Reaction Status Date / Time No Known Allergies Allergy Verified 05/24/19 13:45 Physical Exam Vitals: Vital Signs Temp Pulse Resp BP Pulse Ox 05/24/19 13:51 84 18 80/44 90 L 05/24/19 13:45 85 18 77/52 99 05/24/19 13:15 81 74/40 05/24/19 13:00 88 16 78/46 99 05/24/19 12:53 94 18 88/54 95 05/24/19 12:37 98 F 93 18 77/40 94 L Intake and Output 05/24/19 05/24/19 05/24/19 06:59 14:59 22:59 Intake Total 0.925 0 Balance 0.925 0 Intake: Intake, IV Titration 0.925 Amount Norepinephrine 32 mg In 0.925 Sodium Chloride 0.9% 218 ml @ 0.05 MCG/KG/MIN 3. 083 mls/hr IV .Q24H [facility] Rx#:[id number] Blood Product 0 Rc As-1 Unit 0 [id number] Other: Weight 131.542 kg Gen. appearance, comfortable likely distress morbidly obese Head exam was generally normal. There was no scleral icterus or corneal arcus. Mucous membranes were moist. Neck was supple and without jugular venous distension, thyromegaly, or carotid bruits. Carotids were easily palpable bilaterally. There was no adenopathy. Lungs were clear to auscultation and percussion, and with normal diaphragmatic excursion. No wheezes or rales were noted. Cardiac exam revealed the PMI to be normally situated and sized. The rhythm was regular and no extrasystoles were noted during several minutes of auscultation. The first and second heart sounds were normal and physiologic splitting of the second heart sound was noted. There were no murmurs, rubs, clicks, or gallops. Abdominal exam revealed normal bowel sounds. The abdomen was soft, non-tender, and without masses, organomegaly, or appreciable enlargement of the abdominal aorta. Extremities revealed +1 edema and there is no cyanosis or clubbing Neurologically awake and alert and is no focal neurological deficits. Results - Laboratory Findings CBC and BMP: 05/24/19 13:10 05/24/19 13:10 PT/INR, D-dimer PT 11.6 sec (9.0-12.0) 05/24/19 13:10 INR 1.1 (<1.2) 05/24/19 13:10 Abnormal lab findings: Abnormal Labs 05/24/19 05/24/19 05/24/19 13:10 13:10 13:10 RBC 1.93 L Hgb 7.0 L Hct 20.5 L MCV 106.0 H MCH 36.4 H RDW 22.2 H Plt Count 76 L Lymphocytes # 0.3 L Macrocytosis Marked A Sodium 131 L Chloride 94 L BUN 28 H Creatinine 3.57 H Glucose 116 H Calcium 7.1 L AST 79 H ALT 58 H Total Protein 5.1 L Albumin 2.4 L Urine Appearance Urine Protein Urine Blood Ur Leukocyte Esterase Urine RBC Urine WBC Urine WBC Clumps Urine Bacteria Urine Mucus Urine Yeast (Budding) Crossmatch See Detail 05/24/19 13:38 RBC Hgb Hct MCV MCH RDW Plt Count Lymphocytes # Macrocytosis Sodium Chloride BUN Creatinine Glucose Calcium AST ALT Total Protein Albumin Urine Appearance Turbid H Urine Protein 3+ H Urine Blood Large H Ur Leukocyte Esterase Large H Urine RBC >182 H Urine WBC >182 H Urine WBC Clumps Many H Urine Bacteria Moderate H Urine Mucus Few H Urine Yeast (Budding) Few H Crossmatch - Diagnostic Findings Chest x-ray: image reviewed Assessment and Plan Plan: 1 acute hypotension, I have a suspicion the patient is septic again and this is likely of a urinary source. The urine output is very much cloudy and turbid and purulent. However, the hypotension could be potentially multifactorial. There may a component of GI bleeding in the patient's hemoglobin dropped above and beyond her baseline hemoglobin is down to 7. Note that the patient recently hospitalized for septic shock and bacteremia with staph and treated for enterococcal faecalis urine checked infection. The patient is currently on pressors and the patient is receiving norepinephrine for hemodynamic support pH also has valvular heart disease with severe aortic stenosis and regurgitation and the patient has some mild impairment of the LV function with an ejection fraction of 40-45%. Please refer to the most recent echocardiogram. Currently on IV Rocephin. She is also receiving a unit of packed RBC and a maintenance normal saline infusions rate of 20 mL an hour. Chest x-ray showing acute pulmonary edema and currently she's on 4 liters by nasal cannula. 2 severe aortic stenosis/aortic regurgitation 3 acute pulmonary edema currently on 4 L about 2 by nasal cannula 4 End stage renal disease currently on hemodialysis 3 times a week through a permacath in the right upper chest area. 5 obesity with a BMI of 49.8 6 metastatic breast cancer treated by chemotherapy and radiation therapy to her skeletal metastases. The patient presented earlier approximately a month ago with pancytopenia from which she recovered. 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 Please refer to the most recent PET scan that was done in February 2019. Plan I'm going to put this patient IV Zosyn. We'll obtain urine cultures. We'll obtain blood cultures. We'll continue pressors. Gentle fluid resuscitation with normal saline today to 50 mL an hour. Continue the norepinephrine infusion for blood pressure control. Antibiotic above 65. Hemodialysis per nephrology. Potassium is a patient with a unit of packed RBC and monitor the hemoglobin. Doubt any significant GI bleed and had anemia seems to be more solid chronic in nature. Nevertheless, she is a Hemoccult-positive. We'll put on IV Protonix. We will allow her to take soft diet for now. We will reconsult the patient's medication per she'll be kept in ICU for now. Consult nephrology. We'll consult with gastroenterology. May need also another ID evaluation specially if the Condition turns out to be a septic event.
[2019-05-24] MEDS ORDERED: ALPRAZolam 0.25 MG TAB PO PRN (15:56)
[2019-05-24 16:01] LABS: Glucose,Whole Blood 133 mg/dL (75-99)
[2019-05-24] MEDS: SUCRALFATE 1 GM TAB PO SCH ×2 (18:21→20:36)
[2019-05-24 19:30] LABS: Anisocytosis Moderate; HCT 22.2 % (34.0-46.0); HGB 7.4 gm/dL (11.4-16.0); Hypochromasia Slight; MCH 34.4 pg (25.0-35.0); MCHC 33.4 g/dL (31.0-37.0); MCV 102.9 fL (80.0-100.0); Macrocytosis Marked; Mean Platelet Volume 9.5; Poikilocytosis Slight; RBC 2.16 m/uL (3.80-5.40); RDW 22.9 % (11.5-15.5); WBC 9.9 k/uL (3.8-10.6)
[2019-05-24 19:34] LABS: Platelet Count 71 k/uL (150-450)
[2019-05-24] MEDS: AMIODARONE 200 MG TAB PO SCH (20:36)
[2019-05-24] MEDS: PIPERACILLIN-TAZOBACTAM 3.375 GM in SODIUM CHLORIDE 0.9% 100 ML IVPB SCH (20:36)
[2019-05-24] MEDS: GABAPENTIN 300 MG CAP PO SCH (20:36)
[2019-05-24 21:27] LABS: Albumin 2.1 g/dL (3.5-5.0); Total Bilirubin 0.8 mg/dL (0.2-1.3); Total Protein 4.5 g/dL (6.3-8.2)
[2019-05-24 21:32] LABS: Calcium 6.2 mg/dL (8.4-10.2)
[2019-05-24] MEDS ORDERED: CALCIUM GLUCONATE 2 GM in SODIUM CHLORIDE 0.9% 100 ML IVPB ONE (23:51)
[2019-05-25 05:01] LABS: Anisocytosis Moderate; Basophils % (A) 0 %; Eosinophils # (A) 0.2 k/uL (0-0.7); Eosinophils % (A) 2 %; HCT 21.4 % (34.0-46.0); HGB 7.2 gm/dL (11.4-16.0); Hypochromasia Slight; Lymphocytes # (A) 0.3 k/uL (1.0-4.8); Lymphocytes % (A) 3 %; MCH 33.8 pg (25.0-35.0); MCHC 33.5 g/dL (31.0-37.0); Monocytes # (A) 0.5 k/uL (0-1.0); Monocytes % (A) 5 %; Neutrophils % (A) 88 %; Poikilocytosis Moderate; RBC 2.12 m/uL (3.80-5.40); WBC 10.3 k/uL (3.8-10.6)
[2019-05-25 05:16] LABS: Macrocytosis Marked; Platelet Count 77 k/uL (150-450)
[2019-05-25 05:21] LABS: Albumin 2.1 g/dL (3.5-5.0); Calcium 6.8 mg/dL (8.4-10.2); Potassium 3.1 mmol/L (3.5-5.1); Total Bilirubin 0.9 mg/dL (0.2-1.3); Total Protein 4.6 g/dL (6.3-8.2)
[2019-05-25] MEDS: SUCRALFATE 1 GM TAB PO SCH ×4 (06:24→19:59)
[2019-05-25] MEDS ORDERED: Potassium Replacement Protocol 1 EACH MISC MISCELLANE PRN (06:36)
[2019-05-25] MEDS: POTASSIUM CHLORIDE ER 20 MEQ TAB.ER PO SCH ×2 (07:19→09:02)
[2019-05-25 07:58] LABS: Magnesium 1.8 mg/dL (1.6-2.3)
--- NOTE | 2019-05-25 08:00 | XR ---
EXAMINATION TYPE: XR chest 1V DATE OF EXAM: 05/25/2019 HISTORY: Fluid overload. REFERENCE: Previous study dated 05/24/2019. FINDINGS: There is a large-bore, double-lumen catheter placed via a right internal jugular approach. The tip is in the right atrium. The heart is enlarged. There is interstitial and alveolar airspace disease. I cannot exclude small ef fusions. IMPRESSION: CONTINUING CHANGES OF CONGESTIVE HEART FAILURE.
[2019-05-25] MEDS: ALBUTEROL NEBULIZED 2.5 MG/3 ML INHALATION PRN ×2 (08:09→15:40)
--- NOTE | 2019-05-25 08:09 | P.PN ---
Subjective Progress Note Date: 05/25/19 This is a 64-year-old female patient got transferred from [facility] for GI bleed and hypotension. The patient is well-known to us. In fact she was recently discharged from the hospital after being treated with a combination of medical problems including shortness of breath, sepsis, renal failure and during the course of the treatment the patient developed an acute kidney injury/ATN and she became dialysis dependent. She was undergoing dialysis on a periodic basis. She was infected with staph in the blood and enterococcus in the urine and ultimately she was stabilized and discharged. Note that the patient has metastatic breast cancer and she has also skeletal metastases from breast cancer primary. She has CVA pneumonia left-sided the body, paroxysmal atrial fibrillation and hyperlipidemia. Primary oncologist Dr. Wheat. She has known metastatic Breast Cancer. Most recently progression in spiny bone and status post radiation. Since radiation increased dysphagia, secretion, and pain. Increased Shortness of breath and chills. She has open burn from radiation. During the earlier presentation, the patient had pancytopenia related to treatment and the patient has been off treatment since. The patient has a combination of systolic and diastolic heart failure. She has moderate concentric LVH/hypertensive heart disease with a LV function of 45% and moderate degree of aortic sclerosis and moderate to severe aortic regurgitation and severe aortic stenosis also present on the echocardiogram that was done a few months back. She has a peak gradient across the valve of 76 mmHg and the patient also has secondary pulmonary hypertension with a right posterior systolic pressure estimated to be 73. During this current admission, hemoglobin was at 6.9. Stool for occult blood was positive. The patient presented with a BP of 77/52 and her hemoglobin was at 7.0. The patient was hypotensive and the triple-lumen catheter was established in the emergency department. The patient was started on IV fluids. The patient got transferred to the intensive care unit for further care.The chest x-ray showing acute pulmonary edema. She is currently on 4liters by nasal cannula and her pulse ox is ranging between 90-95%. Head there is a Hunter catheter in place and the patient has dark brownish chocolatey looking cloudy urine output. The patient is currently receiving a packed cell transfusion. She is also on norepinephrine infusion at 0.1 mcg/kg per minute. She is awake and alert. She states that during the last 2 sessions of hemodialysis, she became quite ill and she developed hypotension and it had to be discontinued at the end. Her last hemodialysis session was on Sunday. Currently she is afebrile. Mental status is within normal limits. She is following commands and has secretions appropriately. No focal neurological deficits. Some trace edema in lower extremities bilaterally. On 05/25/2019 I'm seeing this patient for a follow-up. Not the patient is awake and alert and she is following commands and answering questions appropriately. She became slightly more hypoxic compared to yesterday and the patient was placed on 15 L of oxygen by nasal cannula and her pulse ox is ranging between 90-94%. Her chest x-ray still showing acute pulmonary edema. Meanwhile, the patient is still being cheered for an underlying hypotension/sepsis. She received a unit of packed RBC for suspected GI bleed. Hemoglobin today stable and as above 7, specifically at 7.2 and stable. The patient was suspected to have underlying UTI and sepsis. Urine culture sent. Blood cultures sent. She is currently on IV Zosyn. She is receiving pressors and levo fed has been weaned down considerably compared to yesterday. No evidence of any external GI bleeding. No evidence of any altered mentation. No headaches. Creatinine is at 4.2 and the BUN is 32. Her last hemodialysis session was Sunday the patient was unable to complete a full dialysis session because of hemodynamic instability. She is currently on norepinephrine infusion at 0.06 units per kilograms per minute. Potassium needs to be replaced. The fives on the case. Objective - Vital Signs Vital signs: Vital Signs Temp 98.5 F 05/25/19 04:00 Pulse 86 05/25/19 07:30 Resp 18 05/25/19 07:30 BP 128/62 05/25/19 07:30 Pulse Ox 90 L 05/25/19 07:30 Intake & Output 05/24/19 05/25/19 05/25/19 18:59 06:59 18:59 Intake Total 875.590 448.51 20 Output Total 200 20 0 Balance 675.590 428.51 20 Weight 131.542 kg 132.7 kg Intake: IV 80 440 20 Calcium Gluconate 2 gm In 100 Sodium Chloride 0.9% 100 ml @ 100 mls/hr IVPB ONCE ONE Rx#:[id number] NS 80 240 20 Piperacillin-Tazobactam 3 100 .375 gm In Sodium Chloride 0.9% 100 ml @ 25 mls/hr IVPB Q12HR [facility] Rx #:[id number] Intake, IV Titration 25.590 8.51 Amount Norepinephrine 32 mg In 25.590 8.51 Sodium Chloride 0.9% 218 ml @ 0.05 MCG/KG/MIN 3. 083 mls/hr IV .Q24H [facility] Rx#:[id number] Oral 150 Blood Product 620 Rc As-1 Unit 310 [id number] Output: Urine 200 20 0 Other: Voiding Method Indwelling Catheter Indwelling Catheter - Exam Gen. appearance, comfortable likely distress morbidly obese, awake and alert and she is currently on 15 L per minute nasal cannula. Head exam was generally normal. There was no scleral icterus or corneal arcus. Mucous membranes were moist. Neck was supple and without jugular venous distension, thyromegaly, or carotid bruits. Carotids were easily palpable bilaterally. There was no adenopathy. Lungs were clear to auscultation and percussion, and with normal diaphragmatic excursion. No wheezes or rales were noted. Cardiac exam revealed the PMI to be normally situated and sized. The rhythm was regular and no extrasystoles were noted during several minutes of auscultation. The first and second heart sounds were normal and physiologic splitting of the second heart sound was noted. There were no murmurs, rubs, clicks, or gallops. Abdominal exam revealed normal bowel sounds. The abdomen was soft, non-tender, and without masses, organomegaly, or appreciable enlargement of the abdominal aorta. Extremities revealed +1 edema and there is no cyanosis or clubbing Neurologically awake and alert and is no focal neurological deficits. - Labs CBC & Chem 7: 05/25/19 04:45 05/25/19 04:45 Labs: Abnormal Lab Results - Last 24 Hours (Table) 05/24/19 05/24/19 05/24/19 Range/Units 13:10 13:10 13:10 RBC 1.93 L (3.80-5.40) m/uL Hgb 7.0 L (11.4-16.0) gm/dL Hct 20.5 L (34.0-46.0) % MCV 106.0 H (80.0-100.0) fL MCH 36.4 H (25.0-35.0) pg RDW 22.2 H (11.5-15.5) % Plt Count 76 L (150-450) k/uL Neutrophils # (1.3-7.7) k/uL Lymphocytes # 0.3 L (1.0-4.8) k/uL Macrocytosis Marked A APTT (22.0-30.0) sec Sodium 131 L (137-145) mmol/L Potassium (3.5-5.1) mmol/L Chloride 94 L (98-107) mmol/L BUN 28 H (7-17) mg/dL Creatinine 3.57 H (0.52-1.04) mg/dL Glucose 116 H (74-99) mg/dL POC Glucose (mg/dL) (75-99) mg/dL Calcium 7.1 L (8.4-10.2) mg/dL Ionized Calcium Peter (4.5-5.3) mg/dL AST 79 H (14-36) U/L ALT 58 H (9-52) U/L Total Protein 5.1 L (6.3-8.2) g/dL Albumin 2.4 L (3.5-5.0) g/dL Urine Appearance (Clear) Urine Protein (Negative) Urine Blood (Negative) Ur Leukocyte Esterase (Negative) Urine RBC (0-5) /hpf Urine WBC (0-5) /hpf Urine WBC Clumps (None) /hpf Urine Bacteria (None) /hpf Urine Mucus (None) /hpf Urine Yeast (Budding) (None) /hpf Crossmatch See Detail 05/24/19 05/24/19 05/24/19 Range/Units 13:38 14:52 15:48 RBC (3.80-5.40) m/uL Hgb (11.4-16.0) gm/dL Hct (34.0-46.0) % MCV (80.0-100.0) fL MCH (25.0-35.0) pg RDW (11.5-15.5) % Plt Count (150-450) k/uL Neutrophils # (1.3-7.7) k/uL Lymphocytes # (1.0-4.8) k/uL Macrocytosis APTT 32.5 H (22.0-30.0) sec Sodium (137-145) mmol/L Potassium (3.5-5.1) mmol/L Chloride (98-107) mmol/L BUN (7-17) mg/dL Creatinine (0.52-1.04) mg/dL Glucose (74-99) mg/dL POC Glucose (mg/dL) 133 H (75-99) mg/dL Calcium (8.4-10.2) mg/dL Ionized Calcium Peter (4.5-5.3) mg/dL AST (14-36) U/L ALT (9-52) U/L Total Protein (6.3-8.2) g/dL Albumin (3.5-5.0) g/dL Urine Appearance Turbid H (Clear) Urine Protein 3+ H (Negative) Urine Blood Large H (Negative) Ur Leukocyte Esterase Large H (Negative) Urine RBC >182 H (0-5) /hpf Urine WBC >182 H (0-5) /hpf Urine WBC Clumps Many H (None) /hpf Urine Bacteria Moderate H (None) /hpf Urine Mucus Few H (None) /hpf Urine Yeast (Budding) Few H (None) /hpf Crossmatch 05/24/19 05/24/19 05/24/19 Range/Units 19:10 21:00 21:45 RBC 2.16 L (3.80-5.40) m/uL Hgb 7.4 L (11.4-16.0) gm/dL Hct 22.2 L (34.0-46.0) % MCV 102.9 H (80.0-100.0) fL MCH (25.0-35.0) pg RDW 22.9 H (11.5-15.5) % Plt Count 71 L (150-450) k/uL Neutrophils # (1.3-7.7) k/uL Lymphocytes # (1.0-4.8) k/uL Macrocytosis Marked A APTT (22.0-30.0) sec Sodium 134 L (137-145) mmol/L Potassium 3.0 L (3.5-5.1) mmol/L Chloride (98-107) mmol/L BUN 28 H (7-17) mg/dL Creatinine 3.96 H (0.52-1.04) mg/dL Glucose 116 H (74-99) mg/dL POC Glucose (mg/dL) (75-99) mg/dL Calcium 6.2 L* (8.4-10.2) mg/dL Ionized Calcium Peter 3.8 L (4.5-5.3) mg/dL AST 68 H (14-36) U/L ALT 53 H (9-52) U/L Total Protein 4.5 L (6.3-8.2) g/dL Albumin 2.1 L (3.5-5.0) g/dL Urine Appearance (Clear) Urine Protein (Negative) Urine Blood (Negative) Ur Leukocyte Esterase (Negative) Urine RBC (0-5) /hpf Urine WBC (0-5) /hpf Urine WBC Clumps (None) /hpf Urine Bacteria (None) /hpf Urine Mucus (None) /hpf Urine Yeast (Budding) (None) /hpf Crossmatch 05/25/19 05/25/19 05/25/19 Range/Units 04:45 04:45 04:45 RBC 2.12 L (3.80-5.40) m/uL Hgb 7.2 L (11.4-16.0) gm/dL Hct 21.4 L (34.0-46.0) % MCV 101.0 H (80.0-100.0) fL MCH (25.0-35.0) pg RDW 23.0 H (11.5-15.5) % Plt Count 77 L (150-450) k/uL Neutrophils # 9.0 H (1.3-7.7) k/uL Lymphocytes # 0.3 L (1.0-4.8) k/uL Macrocytosis Marked A APTT (22.0-30.0) sec Sodium 133 L (137-145) mmol/L Potassium 3.1 L (3.5-5.1) mmol/L Chloride 97 L (98-107) mmol/L BUN 32 H (7-17) mg/dL Creatinine 4.25 H (0.52-1.04) mg/dL Glucose (74-99) mg/dL POC Glucose (mg/dL) (75-99) mg/dL Calcium 6.8 L (8.4-10.2) mg/dL Ionized Calcium Peter 4.1 L (4.5-5.3) mg/dL AST 67 H (14-36) U/L ALT (9-52) U/L Total Protein 4.6 L (6.3-8.2) g/dL Albumin 2.1 L (3.5-5.0) g/dL Urine Appearance (Clear) Urine Protein (Negative) Urine Blood (Negative) Ur Leukocyte Esterase (Negative) Urine RBC (0-5) /hpf Urine WBC (0-5) /hpf Urine WBC Clumps (None) /hpf Urine Bacteria (None) /hpf Urine Mucus (None) /hpf Urine Yeast (Budding) (None) /hpf Crossmatch Microbiology - Last 24 Hours (Table) 05/24/19 13:38 Urine Culture - Preliminary Urine,Catheterized Assessment and Plan Plan: 1 acute hypotension, I have a suspicion the patient is septic again and this is likely of a urinary source. The urine output is very much cloudy and turbid and purulent. However, the hypotension could be potentially multifactorial. There may a component of GI bleeding in the patient's hemoglobin dropped above and beyond her baseline hemoglobin is down to 7. Note that the patient recently hospitalized for septic shock and bacteremia with staph and treated for enterococcal faecalis urine checked infection. The patient is currently on pres sors and the patient is receiving norepinephrine for hemodynamic support , also has valvular heart disease with severe aortic stenosis and regurgitation and the patient has some mild impairment of the LV function with an ejection fraction of 40-45%. Please refer to the most recent echocardiogram. Currently on IV Rocephin. She is also receiving a unit of packed RBC and a maintenance normal saline infusions rate of 20 mL an hour. Chest x-ray showing acute pulmonary edema and currently she's on 4 liters by nasal cannula. On today's evaluation of 05/25/2019, the patient is being covered with broad- spectrum antibiotics. The patient is also requiring pressors in the form of norepinephrine infusion at the rate of 0.06 micrograms per kilogram per minute. Suspect underlying urine infection. Continue the Zosyn pending further cultures and sensitivities. Meanwhile, Watch for any signs of any GI bleeding. I think the hemoglobin was chronically low and there is no evidence of any acute bleed at this point in time. We should be able to gradually wean off the pressors depending on a hemodynamic response. 2 severe aortic stenosis/aortic regurgitation 3 acute pulmonary edema currently on 15 L per minute nasal cannula. She may likely need dialysis today as the patient is becoming more hypoxic and a reduction requirements have gone up in her chest x-ray showing acute pulmonary edema. 4 End stage renal disease currently on hemodialysis 3 times a week through a permacath in the right upper chest area. 5 obesity with a BMI of 49.8 6 metastatic breast cancer treated by chemotherapy and radiation therapy to her skeletal metastases. The patient presented earlier approximately a month ago with pancytopenia from which she recovered. 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 Please refer to the most recent PET scan that was done in February 2019. Plan IV Zosyn. Continue monitoring the cultures including the urine and the blood. Chest x-ray showing pulmonary edema. The patient is on 15 L by nasal cannula. Reasonable to consider dialysis session today. Continue pressors and wean the levo fed off over the next 24 hours. Monitor the hemoglobin. She got transferred to a unit of packed RBC. Hemoglobin is at 7.2. Watch for any signs of GI bleed. GI is on the case. Keep the patient ICU for now.
[2019-05-25] MEDS: PIPERACILLIN-TAZOBACTAM 3.375 GM in SODIUM CHLORIDE 0.9% 100 ML IVPB SCH ×2 (09:01→19:59)
[2019-05-25] MEDS: AMIODARONE 200 MG TAB PO SCH ×2 (09:02→19:59)
[2019-05-25] MEDS: PANTOPRAZOLE 40 MG/10 ML VIAL IV SCH ×2 (09:03→20:00)
--- NOTE | 2019-05-25 09:46 | P.NPCON ---
History of Present Illness - Reason for Consult Consult date: 05/25/19 acute renal failure - Chief Complaint GI bleed - History of Present Illness 64-year-old female transferred from [facility] with the above complaints. She was started on dialysis last admission, currently dialyzes at [facility] Sunday. Her last dialysis was Sunday. She comes in with the above complaints currently in ICU chest x-ray showed pulmonary vascular congestion. As per her she was getting hypotensive during dialysis. And they were unable to get fluid off upper. No nausea vomiting diarrhea. She has a Hunter catheter with minimal urine output. She has metastatic breast cancer currently on chemotherapy. Currently on levophed. Review of Systems Constitutional: Reports as per HPI Past Medical History Past Medical History: Cancer, CVA/TIA, Hyperlipidemia, Hypertension, Renal Disease Additional Past Medical History / Comment(s): hx CVA left side 2017, Left breast cancer 1997, spine cancer 2017, KIT currently chronic kidney failure and the patient is requiring hemodialysis periodically 3 times a week my recent hospitalization for sepsis History of Any Multi-Drug Resistant Organisms: None Reported Past Surgical History: Breast Surgery, Hysterectomy, Joint Replacement Additional Past Surgical History / Comment(s): left knee replacement, several breast biopsies Past Anesthesia/Blood Transfusion Reactions: No Reported Reaction Past Psychological History: No Psychological Hx Reported Smoking Status: Former smoker - Past Family History Father Family Medical History: Cancer Additional Family Medical History / Comment(s): Father from cancer in the lining of his lungs. He had occupational chemical exposures. Mother Family Medical History: Cancer, Coronary Artery Disease (CAD) Additional Family Medical History / Comment(s): Mother had colon cancer with surgery. She also had heart disease. Medications and Allergies Home Medications Medication Instructions Recorded Confirmed Type Aspirin [Adult Low Dose Aspirin EC] 162 mg PO DAILY 07/03/18 05/24/19 History Albuterol Inhaler [Ventolin Hfa 2 puff INHALATION RT-Q4H PRN 03/05/19 05/24/19 History Inhaler] Fluticasone Nasal [place] [Flonase 1 spray EA NOSTRIL DAILY 03/05/19 05/24/19 History Nasal [place]] Polyethylene Glycol 3350 [Miralax] 17 gm PO DAILY PRN #30 powd.pack 03/11/19 05/24/19 Rx Sucralfate [Carafate] 1 gm PO ACHS #120 tablet 03/11/19 05/24/19 Rx ALPRAZolam [Xanax] 0.25 mg PO TID PRN #6 tab 05/20/19 05/24/19 Rx Amiodarone [Cordarone] 200 mg PO BID tab 05/20/19 05/24/19 Rx Calcium Carbonate [Tums] 1,000 mg PO TID chew 05/20/19 05/24/19 Rx Dronabinol [Marinol] 5 mg PO AC-BID #3 cap 05/20/19 05/24/19 Rx Gabapentin [Neurontin] 600 mg PO HS #3 cap 05/20/19 05/24/19 Rx Ipratropium-Albuterol Nebulize 3 ml INHALATION RT-Q4H PRN 05/20/19 05/24/19 Rx [Duoneb 0.5 mg-3 mg/3 ml Soln] ampul.neb Ipratropium-Albuterol Nebulize 3 ml INHALATION RT-QID ampul.neb 05/20/19 05/24/19 Rx [Duoneb 0.5 mg-3 mg/3 ml Soln] Melatonin 3 mg PO HS tablet 05/20/19 05/24/19 Rx Metoprolol Succinate (ER) [Toprol 50 mg PO DAILY tab.er.24h 05/20/19 05/24/19 Rx XL] Ondansetron [Zofran] 4 mg PO Q8HR PRN #2 tab 05/20/19 05/24/19 Rx INSULIN ASPART (NovoLOG) [NovoLOG See Protocol SQ ACHS 05/24/19 05/24/19 History (formulary)] Allergies Allergy/AdvReac Type Severity Reaction Status Date / Time No Known Allergies Allergy Verified 05/24/19 13:45 Physical Exam Vitals: Vital Signs Temp Pulse Resp BP Pulse Ox 05/25/19 08:25 98 05/25/19 08:10 96 05/25/19 07:30 86 18 128/62 90 L 05/25/19 07:00 75 15 131/60 99 05/25/19 06:30 79 16 128/54 97 05/25/19 06:00 87 19 116/59 96 05/25/19 05:30 74 17 110/52 92 L 05/25/19 05:00 80 19 117/50 94 L 05/25/19 04:30 72 12 110/49 99 05/25/19 04:00 98.5 F 73 16 117/51 97 05/25/19 03:38 99 05/25/19 03:30 71 13 102/50 99 05/25/19 03:00 70 13 103/49 99 05/25/19 02:30 73 16 112/54 100 05/25/19 02:00 80 16 119/48 90 L 05/25/19 01:43 91 L 05/25/19 01:30 85 19 97/46 99 05/25/19 01:00 80 15 96/70 91 L 05/25/19 00:30 73 16 108/52 95 05/25/19 00:00 97.9 F 73 14 106/49 95 05/24/19 23:30 72 14 99/48 95 05/24/19 23:00 71 20 103/48 94 L 05/24/19 22:30 73 16 103/50 95 05/24/19 22:00 73 18 92/40 95 05/24/19 21:30 75 14 95/55 93 L 05/24/19 21:00 75 19 118/72 95 05/24/19 20:30 78 18 130/65 90 L 05/24/19 20:06 96 05/24/19 20:00 98 F 73 14 108/57 96 05/24/19 19:30 70 16 99/53 97 05/24/19 19:00 74 13 106/59 94 L 05/24/19 18:30 80 9 L 115/48 94 L 05/24/19 18:00 82 15 107/54 92 L 05/24/19 17:31 98 F 79 13 113/59 96 05/24/19 17:16 98 F 87 10 L 114/63 95 05/24/19 17:01 80 11 L 116/67 99 05/24/19 16:45 80 14 110/50 96 05/24/19 16:30 83 20 118/57 97 05/24/19 16:15 79 20 117/68 98 05/24/19 16:00 80 7 L 123/76 93 L 05/24/19 15:50 97.5 F L 88 26 H 123/76 93 L 05/24/19 15:48 85 21 88 L 09/28/19 15:42 97.5 F L 84 12 123/76 91 L 05/24/19 15:26 84 18 115/48 93 L 05/24/19 15:12 97.8 F 82 16 119/67 05/24/19 15:05 82 18 134/69 95 05/24/19 15:02 97.7 F 82 16 127/64 96 05/24/19 14:26 24 05/24/19 13:51 84 18 80/44 90 L 05/24/19 13:45 85 18 77/52 99 05/24/19 13:15 81 74/40 05/24/19 13:00 88 16 78/46 99 05/24/19 12:53 94 18 88/54 95 05/24/19 12:37 98 F 93 18 77/40 94 L Intake and Output 05/24/19 05/25/19 05/25/19 22:59 06:59 14:59 Intake Total 1063.175 260 20 Output Total 205 15 0 Balance 858.175 245 20 Intake: IV 260 260 20 Calcium Gluconate 2 gm In 100 Sodium Chloride 0.9% 100 ml @ 100 mls/hr IVPB ONCE ONE Rx#:[id number] NS 160 160 20 Piperacillin-Tazobactam 3 100 .375 gm In Sodium Chloride 0.9% 100 ml @ 25 mls/hr IVPB Q12HR [facility] Rx #:[id number] Intake, IV Titration 33.175 Amount Norepinephrine 32 mg In 33.175 Sodium Chloride 0.9% 218 ml @ 0.05 MCG/KG/MIN 3. 083 mls/hr IV .Q24H [facility] Rx#:[id number] Oral 150 Blood Product 620 Rc As-1 Unit 310 [id number] Output: Urine 205 15 0 Other: Voiding Method Indwelling Catheter Indwelling Catheter Weight 132.7 kg No acute distress S1-S2 heard Right jugular permacath Decreased breath sounds Hunter catheter Trace edema Results - Lab Results Most recent lab results Calcium 6.8 mg/dL (8.4-10.2) L 05/25/19 04:45 Phosphorus 3.0 mg/dL (2.5-4.5) 05/25/19 07:15 Magnesium 1.8 mg/dL (1.6-2.3) 05/25/19 07:15 09/29/19 04:45 05/25/19 04:45 Assessment and Plan Assessment: #1 acute kidney injury on dialysis, MWF right jugular permacath #2 pulmonary vascular congestion with volume overload. #3 anemia with chronic kidney disease #4 hypertension with chronic kidney disease #5 metabolic bone disease with chronic kidney disease #6 shock on levo fed. Plan: #1 plan hemodialysis today 2.5 hours, 12 L ultrafiltration. And again plan for tomorrow for full treatment. #2 antibiotics for complicated UTI. #3 check iron profile and add IV iron and BRITTANY based on the labs. Goal hemoglobin 10-11. #4 ween off levo fed. #5 avoid nephrotoxic agents and hypotensive episodes.
--- NOTE | 2019-05-25 10:48 | CONS ---
CONSULTATION Mrs. Lopez is a 64-year-old female who had recently had a prolonged admission to the hospital for respiratory failure and infection. She had episode of paroxysmal fibrillation. Her echocardiogram revealed a mildly impaired left ventricular systolic function with evidence of moderate to severe aortic regurgitation, severe aortic stenosis. She was sent to rehab and in dialysis had episode of hypotension and dizziness and referred back to the hospital and admitted. She is in sinus mechanism without any further episode of atrial fibrillation. She has no chest discomfort. No dizziness. No palpitation. She has some peripheral edema, although better. She was noted to be severely anemic on presentation. She has a known history of metastatic breast cancer and skeletal metastasis and has been followed by Dr. Nieto. She had a remote history of stroke affecting her left side. There is no clear documentation of obstructive coronary artery disease. The patient was started on hemodialysis during her last admission. She is feeling much better this morning. She denies any chest discomfort. No palpitation. Her energy and her appetite are better. MEDICATION: At the time of admission included Zofran, Toprol-XL 50 mg daily, Marinol, MiraLAX, DuoNeb, insulin, Carafate, Neurontin, TUMS, aspirin and amiodarone 200 mg twice a day. REVIEW OF SYSTEMS: RESPIRATORY SYSTEM: She had dyspnea on exertion. No recent wheezing or cough. GI system: No recent nausea and vomiting. No recent GI bleeding. system: She has end-stage renal disease, on hemodialysis. NERVOUS SYSTEM: She had a prior history of weakness on the left side. PHYSICAL EXAMINATION: She is a 64-year-old female, alert, oriented, no apparent distress. Ecchymosis noted on the chest and the neck. Blood pressure 128/60 with a heart rate in the 80s. HEAD: Normocephalic. Eyes: Sclerae anicteric. NECK: No bruit. LUNGS: Clear to auscultation. HEART: Regular rate and rhythm S1, S2. No S3 with systolic murmur at the base, ejection type 2/6 with a diastolic murmur. No rub. ABDOMEN: Soft, obese, nontender. Positive bowel sounds. No organomegaly. EXTREMITIES: +1 edema bilaterally. LAB DATA: Lab data revealed on admission: Hemoglobin of 7, platelets count of 76,000, white blood cell of 8.1. BUN and creatinine 28 and 3.57. Her NT proBNP is 68,900 which is not reliable because of the chronic kidney disease. Her hemoglobin today is 7.2. Her EKG revealed a sinus mechanism, left axis deviation, nonspecific ST-T wave changes, cannot exclude anterior myocardial infarction. Her chest x-ray revealed evidence of fluid overload. IMPRESSION: 1. Episode of hypotension during dialysis. The patient may have recurrent infectious process. She does not appear to be significantly fluid overloaded at this time. Her urine output is cloudy. She may have urinary tract infection. 2. Paroxysmal atrial fibrillation. 3. Mixed aortic valve disease. 4. End-stage renal disease, on hemodialysis. 5. Metastatic breast cancer. 6. History of stroke. 7. Prior episode of paroxysmal atrial fibrillation. RECOMMENDATION: From the cardiac standpoint, we will continue present therapy. Patient needs to be evaluated regarding the issue of anticoagulation because of the prior history of stroke and paroxysmal atrial fibrillation. I will discuss that issue with Dr. Rashid. At this time, there was a question of acute GI bleeding. We will await. We will follow her renal function. Unfortunately, her prognosis is guarded and I do not feel that she is a candidate for aggressive workup of her valvular disease. MMODL / IJN: [id number] /
--- NOTE | 2019-05-25 13:37 | P.PN ---
Subjective This is a pleasant 64 years old female with past medical history of hyperlipidemia, hypertension, CVA/TIA, metastatic left breast cancer in 1998 and the spine cancer in 2018, mostly its metastasis from her breast cancer, end- stage renal disease on dialysis, atrial fibrillation with RVR, she was recently discharged from the hospital for recent pneumonia and respiratory failure Patient was transferred from [facility] for GI hemorrhage and hypotension. At the [facility] she was confused and patient was found to be hypotensive and hypoxic with oxygen saturations at 78%, on her way to the hospital patient started waking up with supplemental oxygen. At first patient was sent to [facility] before she was transferred to the current hospital [place] labs reviewed, it looks like BMP and liver enzymes were unremarkable, hemoglobin was 6.9, occult blood in the stools positive, urinalysis showing doubly BC of 30-50 with positive nitrite. EKG showing normal sinus rhythm at [address]-T changes with QTC 498 Patient blood pressure was hypotensive with 77/52, she's been afebrile. Labs show hemoglobin 7 with hematocrit of 20.5, wBC 8.1K and platelet count 76k. Sodium 131, creatinine 3.5, liver enzymes mildly elevated at 79 and 58. INR is 1.1. Urine analysis is indicating for infection Patient is getting 1 unit of blood transfusion 05/25/2019 Patient resting comfortably in bed, she remains in the ICU currently. No chest pain or dyspnea. Patient with no nausea vomiting, she is passing gas but no bowel movement, no abdominal pain, she is on clear diet and wants to be advanced to soft area at she still have Hunter catheter with light brown urine, less turbid than yesterday. Hemoglobin stable at 7.2, WBC is 10.3 K, sodium 133 is stable. Creatinine went up to 4.2 slight improvement. Hog Ringer evaluated the patient and recommended hemodialysis today,. Pulmonary/critical care team is still following the patient closely Objective - Vital Signs Vital signs: Vital Signs Temp 98.2 F 05/25/19 12:13 Pulse 92 05/25/19 11:00 Resp 20 05/25/19 12:13 BP 115/55 05/25/19 12:13 Pulse Ox 92 L 05/25/19 11:00 Intake & Output 09/28/19 09/29/19 09/29/19 18:59 06:59 18:59 Intake Total 875.590 448.51 720 Output Total 373 87 2217 Balance 675.590 428.51 -1300 Weight 131.542 kg 132.7 kg 132.7 kg Intake: IV 80 440 220 Calcium Gluconate 2 gm In 100 Sodium Chloride 0.9% 100 ml @ 100 mls/hr IVPB ONCE ONE Rx#:[id number] NS 80 240 120 Piperacillin-Tazobactam 3 100 100 .375 gm In Sodium Chloride 0.9% 100 ml @ 25 mls/hr IVPB Q12HR [facility] Rx #:[id number] Intake, IV Titration 25.590 8.51 Amount Norepinephrine 32 mg In 25.590 8.51 Sodium Chloride 0.9% 218 ml @ 0.05 MCG/KG/MIN 3. 083 mls/hr IV .Q24H [facility] Rx#:[id number] Oral 150 500 Blood Product 620 Rc As-1 Unit 310 [id number] Output: Urine 200 20 20 Other 2000 Other: Voiding Method Indwelling Catheter Indwelling Catheter Indwelling Catheter - Exam GENERAL: The patient is alert and oriented x3, not in any acute distress. Obese HEENT: Pupils are round and equally reacting to light. EOMI. No scleral icterus. No conjunctival pallor. Normocephalic, atraumatic. No pharyngeal erythema. No thyromegaly. CARDIOVASCULAR: S1 and S2 present. No murmurs, rubs, or gallops. PULMONARY: Chest is clear to auscultation, no wheezing or crackles. ABDOMEN: Soft, nontender, nondistended, normoactive bowel sounds. No palpable organomegaly. MUSCULOSKELETAL: No joint swelling or deformity. EXTREMITIES: No cyanosis, clubbing, or pedal edema. NEUROLOGICAL: Gross neurological examination did not reveal any focal deficits. SKIN: No rashes. No petechiae - Labs CBC & Chem 7: 05/25/19 04:45 05/25/19 04:45 Labs: Abnormal Lab Results - Last 24 Hours (Table) 05/24/19 05/24/19 05/24/19 Range/Units 13:10 13:10 13:10 RBC 1.93 L (3.80-5.40) m/uL Hgb 7.0 L (11.4-16.0) gm/dL Hct 20.5 L (34.0-46.0) % MCV 106.0 H (80.0-100.0) fL MCH 36.4 H (25.0-35.0) pg RDW 22.2 H (11.5-15.5) % Plt Count 76 L (150-450) k/uL Neutrophils # (1.3-7.7) k/uL Lymphocytes # 0.3 L (1.0-4.8) k/uL Macrocytosis Marked A APTT (22.0-30.0) sec Sodium 131 L (137-145) mmol/L Potassium (3.5-5.1) mmol/L Chloride 94 L (98-107) mmol/L BUN 28 H (7-17) mg/dL Creatinine 3.57 H (0.52-1.04) mg/dL Glucose 116 H (74-99) mg/dL POC Glucose (mg/dL) (75-99) mg/dL Calcium 7.1 L (8.4-10.2) mg/dL Ionized Calcium Peter (4.5-5.3) mg/dL AST 79 H (14-36) U/L ALT 58 H (9-52) U/L Total Protein 5.1 L (6.3-8.2) g/dL Albumin 2.4 L (3.5-5.0) g/dL Urine Appearance (Clear) Urine Protein (Negative) Urine Blood (Negative) Ur Leukocyte Esterase (Negative) Urine RBC (0-5) /hpf Urine WBC (0-5) /hpf Urine WBC Clumps (None) /hpf Urine Bacteria (None) /hpf Urine Mucus (None) /hpf Urine Yeast (Budding) (None) /hpf Crossmatch See Detail 05/24/19 05/24/19 05/24/19 Range/Units 13:38 14:52 15:48 RBC (3.80-5.40) m/uL Hgb (11.4-16.0) gm/dL Hct (34.0-46.0) % MCV (80.0-100.0) fL MCH (25.0-35.0) pg RDW (11.5-15.5) % Plt Count (150-450) k/uL Neutrophils # (1.3-7.7) k/uL Lymphocytes # (1.0-4.8) k/uL Macrocytosis APTT 32.5 H (22.0-30.0) sec Sodium (137-145) mmol/L Potassium (3.5-5.1) mmol/L Chloride (98-107) mmol/L BUN (7-17) mg/dL Creatinine (0.52-1.04) mg/dL Glucose (74-99) mg/dL POC Glucose (mg/dL) 133 H (75-99) mg/dL Calcium (8.4-10.2) mg/dL Ionized Calcium Peter (4.5-5.3) mg/dL AST (14-36) U/L ALT (9-52) U/L Total Protein (6.3-8.2) g/dL Albumin (3.5-5.0) g/dL Urine Appearance Turbid H (Clear) Urine Protein 3+ H (Negative) Urine Blood Large H (Negative) Ur Leukocyte Esterase Large H (Negative) Urine RBC >182 H (0-5) /hpf Urine WBC >182 H (0-5) /hpf Urine WBC Clumps Many H (None) /hpf Urine Bacteria Moderate H (None) /hpf Urine Mucus Few H (None) /hpf Urine Yeast (Budding) Few H (None) /hpf Crossmatch 05/24/19 05/24/19 05/24/19 Range/Units 19:10 21:00 21:45 RBC 2.16 L (3.80-5.40) m/uL Hgb 7.4 L (11.4-16.0) gm/dL Hct 22.2 L (34.0-46.0) % MCV 102.9 H (80.0-100.0) fL MCH (25.0-35.0) pg RDW 22.9 H (11.5-15.5) % Plt Count 71 L (150-450) k/uL Neutrophils # (1.3-7.7) k/uL Lymphocytes # (1.0-4.8) k/uL Macrocytosis Marked A APTT (22.0-30.0) sec Sodium 134 L (137-145) mmol/L Potassium 3.0 L (3.5-5.1) mmol/L Chloride (98-107) mmol/L BUN 28 H (7-17) mg/dL Creatinine 3.96 H (0.52-1.04) mg/dL Glucose 116 H (74-99) mg/dL POC Glucose (mg/dL) (75-99) mg/dL Calcium 6.2 L* (8.4-10.2) mg/dL Ionized Calcium Peter 3.8 L (4.5-5.3) mg/dL AST 68 H (14-36) U/L ALT 53 H (9-52) U/L Total Protein 4.5 L (6.3-8.2) g/dL Albumin 2.1 L (3.5-5.0) g/dL Urine Appearance (Clear) Urine Protein (Negative) Urine Blood (Negative) Ur Leukocyte Esterase (Negative) Urine RBC (0-5) /hpf Urine WBC (0-5) /hpf Urine WBC Clumps (None) /hpf Urine Bacteria (None) /hpf Urine Mucus (None) /hpf Urine Yeast (Budding) (None) /hpf Crossmatch 05/25/19 05/25/19 05/25/19 Range/Units 04:45 04:45 04:45 RBC 2.12 L (3.80-5.40) m/uL Hgb 7.2 L (11.4-16.0) gm/dL Hct 21.4 L (34.0-46.0) % MCV 101.0 H (80.0-100.0) fL MCH (25.0-35.0) pg RDW 23.0 H (11.5-15.5) % Plt Count 77 L (150-450) k/uL Neutrophils # 9.0 H (1.3-7.7) k/uL Lymphocytes # 0.3 L (1.0-4.8) k/uL Macrocytosis Marked A APTT (22.0-30.0) sec Sodium 133 L (137-145) mmol/L Potassium 3.1 L (3.5-5.1) mmol/L Chloride 97 L (98-107) mmol/L BUN 32 H (7-17) mg/dL Creatinine 4.25 H (0.52-1.04) mg/dL Glucose (74-99) mg/dL POC Glucose (mg/dL) (75-99) mg/dL Calcium 6.8 L (8.4-10.2) mg/dL Ionized Calcium Peter 4.1 L (4.5-5.3) mg/dL AST 67 H (14-36) U/L ALT (9-52) U/L Total Protein 4.6 L (6.3-8.2) g/dL Albumin 2.1 L (3.5-5.0) g/dL Urine Appearance (Clear) Urine Protein (Negative) Urine Blood (Negative) Ur Leukocyte Esterase (Negative) Urine RBC (0-5) /hpf Urine WBC (0-5) /hpf Urine WBC Clumps (None) /hpf Urine Bacteria (None) /hpf Urine Mucus (None) /hpf Urine Yeast (Budding) (None) /hpf Crossmatch Microbiology - Last 24 Hours (Table) 05/24/19 13:38 Urine Culture - Preliminary Urine,Catheterized Assessment and Plan Assessment: Acute GI bleed Acute blood loss anemia Acute urinary tract infection Hypotension secondary to above, Possible combined septic and hemorrhagic shock recent pneumonia and respiratory failure End-stage renal disease on dialysis Atrial fibrillation Hypertension Hyperlipidemia CVA/TIA, with left hemiparesis Thrombocytopenia History of left breast cancer in 1997, status post breast surgery, metastatic to the spine and liver Plan: This is a pleasant 64 years old female who presents with GI bleed and hypotension with picture of shock. Central line placement, transfuse blood as needed. Monitor vitals and hemoglobin. Continue with Protonix IV. Consult critical care team and GI team and follow the recommendation. Nephrology consult is appreciated, planned for hemodialysis Continue with IV fluids. In the emergency room patient was started on Levophed and intravenous Protonix. Ceftriaxone. Several consultants were called from the emergency room including critical care, GI, cardiology, nephrology and oncology Labs and medication were reviewed.. Continue same treatment. Continue with symptomatic treatment. Resume home medication. Monitor lytes and vitals. DVT and GI prophylaxis. Further recommendations of the clinical course of the patient DVT prophylaxis: No heparin and review of GI bleed GI Prophylaxis: Protonix Prognosis is guarded
[2019-05-25] MEDS: FLUTICASONE 50MCG/SPRAY NASAL 16GM EA NOSTRIL SCH (16:58)
[2019-05-25] MEDS: NOREPINEPHRINE 32 MG in SODIUM CHLORIDE 0.9% 218 ML IV SCH (17:08)
[2019-05-25] MEDS: SODIUM CHLORIDE 0.9% 1,000 ML IV SCH (17:08)
[2019-05-25] MEDS: NYSTATIN 100,000 UNIT/ML SUSP 500,000 UNIT/5 ML CUP PO SCH ×2 (17:58→23:18)
--- NOTE | 2019-05-25 18:45 | CONS ---
CONSULTATION DATE OF DICTATION: May 25, 2019 REQUESTING PHYSICIAN: Dr. Quintero. REASON FOR CONSULTATION: Anemia. HISTORY OF PRESENT ILLNESS: The patient is a 64-year-old pleasant white female who was admitted to the hospital with sepsis/UTI. The patient was diagnosed with metastatic breast cancer, with spine metastasis and follows with Dr. Nieto on an outpatient basis. She is currently undergoing chemotherapy and she finished a course of radiation therapy that ended in December of this year. Her last cycle of chemotherapy was a month ago. She had a prolonged hospitalization for acute respiratory failure/sepsis and was just discharged home to rehab about a week ago. She is back in the hospital with fatigue, weakness and hypotension. During her hospitalization, she was diagnosed with ATN causing renal failure and has been started on hemodialysis 3 weeks ago. During this hospitalization, she was noted to have severe anemia with a hemoglobin of 7.4 g/dL and hence we are consulted in regards to this issue. She was also noted to have Hemoccult-positive stool. The patient clinically denies any active bleeding. She reports no abdominal pain. No nausea, vomiting. Denies any rectal bleeding or melena. She recalls having a colonoscopy approximately 25 years ago. She denies any recent NSAID use. No prior history of peptic ulcer disease. PAST MEDICAL HISTORY: Coronary artery disease, history of congestive heart failure, metastatic breast cancer with spine metastasis undergoing chemo and radiation therapy, hypertension, hyperlipidemia. PAST SURGICAL HISTORY: Breast surgery, hysterectomy, left knee replacement. FAMILY HISTORY: Father had lung cancer and mother had coronary artery disease. MEDICATIONS: At home include aspirin, albuterol, Flonase, polyethylene glycol, Carafate, Norvasc, insulin, metoprolol, DuoNeb, gabapentin, Marinol, Cordarone, Xanax and TUMS. ALLERGIES: None. SOCIAL HISTORY: No smoking or alcohol use. REVIEW OF SYSTEMS: Cardiopulmonary: She does complain of some shortness of breath. Genitourinary: No dysuria or hematuria. She does complain of cloudy urine. Neurology unremarkable. Psychiatric unremarkable. ENT/VISION: Unremarkable. CONSTITUTIONAL: No recent weight loss. No fever, chills, night sweats. Hematology/Oncology: Metastatic breast cancer as mentioned above. ENT/Vision unremarkable. PHYSICAL EXAMINATION: She appears comfortable. No apparent distress. Vital signs is stable. Blood pressure is 115/55, pulse rate 55, temperature 98.2. HEENT examination unremarkable. Conjunctivae pink. Sclerae anicteric. Oral cavity no lesions. Neck: No JVD or lymph node enlargement. Chest was clear to auscultation. HEART: Regular rate and rhythm. ABDOMEN: Soft, it was obese. Bowel sounds are positive. Multiple bruises noted in the upper extremities. She had a Martínez catheter placed in the right side of the chest. EXTREMITIES: No pedal edema. Skin no rashes. NEURO: She is alert and oriented x3. No focal deficits. LABS: Done at the time of admission to the hospital: WBC is 9.9, hemoglobin 7, platelets 76,000. Today, WBC 7.2, platelets are 77,000. INR is 1.1, BUN 32, creatinine 4.25. AST, ALT are 758 respectively. Alkaline phosphatase and T-bilirubin are within normal limits. IMPRESSION: 1. Urosepsis/hypertension. Presently on broad-spectrum antibiotics. 2. Anemia with a hemoglobin of 7.2 g/dL. Clinically no evidence of active ongoing bleeding. Hemoccult stool was noted to be positive. No recent endoscopic interventions. The last colonoscopy was several years ago. She has multiple comorbidities and may have a component of anemia of chronic disease. 3. History of severe aortic stenosis and aortic regurgitation. 4. Acute tubular necrosis during the last prolonged hospitalization for sepsis requiring hemodialysis for the last 3 weeks. 5. Metastatic breast cancer, undergoing chemotherapy, status post radiation therapy 2 months ago. RECOMMENDATIONS: 1. Continue with broad-spectrum antibiotics. 2. We will obtain iron studies. 3. Monitor CBC on a daily basis. 4. No plans for any endoscopic intervention at the present time. 5. We will continue to follow her closely during hospital stay. Thank you for this consultation. MMODL / IJN: [id number] /
[2019-05-25] MEDS: GABAPENTIN 300 MG CAP PO SCH (19:59)
[2019-05-26 05:15] LABS: Anisocytosis Moderate; Basophils % (A) 0 %; Eosinophils # (A) 0.2 k/uL (0-0.7); Eosinophils % (A) 2 %; Hypochromasia Slight; Lymphocytes # (A) 0.2 k/uL (1.0-4.8); Lymphocytes % (A) 3 %; MCH 33.7 pg (25.0-35.0); MCHC 33.2 g/dL (31.0-37.0); MCV 101.6 fL (80.0-100.0); Macrocytosis Marked; Mean Platelet Volume 9.3; Monocytes # (A) 0.3 k/uL (0-1.0); Monocytes % (A) 5 %; Neutrophils # (A) 6.2 k/uL (1.3-7.7); Neutrophils % (A) 87 %; Poikilocytosis Moderate; RBC 1.86 m/uL (3.80-5.40); RDW 22.6 % (11.5-15.5); WBC 7.1 k/uL (3.8-10.6)
[2019-05-26 05:23] LABS: Platelet Count 65 k/uL (150-450)
[2019-05-26 05:24] LABS: HCT 18.9 % (34.0-46.0); HGB 6.3 gm/dL (11.4-16.0)
[2019-05-26 05:30] LABS: Potassium 3.1 mmol/L (3.5-5.1)
[2019-05-26 05:33] LABS: Calcium 6.2 mg/dL (8.4-10.2)
[2019-05-26] MEDS ORDERED: Potassium Replacement Protocol 1 EACH MISC MISCELLANE PRN (05:59)
[2019-05-26] MEDS: SUCRALFATE 1 GM TAB PO SCH ×4 (06:35→20:39)
[2019-05-26] MEDS: POTASSIUM CHLORIDE ER 20 MEQ TAB.ER PO SCH ×2 (07:02→09:16)
[2019-05-26 07:33] LABS: Albumin 1.8 g/dL (3.5-5.0); Magnesium 1.7 mg/dL (1.6-2.3); Phosphorus 2.6 mg/dL (2.5-4.5); Total Bilirubin 0.8 mg/dL (0.2-1.3); Total Protein 4.1 g/dL (6.3-8.2)
--- NOTE | 2019-05-26 08:28 | XR ---
EXAMINATION TYPE: XR chest 1V portable DATE OF EXAM: 05/26/2019 Comparison: 05/25/2019 Clinical History: 64-year-old female SOB Findings: Double-lumen hemodialysis catheter with tips in the right atrium. Heart mildly enlarged. Aorta within normal limits. Diffuse interstitial and vascular opacities bilaterally. No pleural effusion. Impression: Diffuse interstitial opacities. Correlate for possible etiologies including but not limited to inters titial pulmonary edema.
[2019-05-26] MEDS: PIPERACILLIN-TAZOBACTAM 3.375 GM in SODIUM CHLORIDE 0.9% 100 ML IVPB SCH ×2 (09:17→20:39)
[2019-05-26] MEDS: NYSTATIN 100,000 UNIT/ML SUSP 500,000 UNIT/5 ML CUP PO SCH ×4 (09:17→20:39)
[2019-05-26] MEDS: AMIODARONE 200 MG TAB PO SCH ×2 (09:17→09:18)
[2019-05-26] MEDS: PANTOPRAZOLE 40 MG/10 ML VIAL IV SCH ×2 (09:17→20:38)
[2019-05-26] MEDS: FLUTICASONE 50MCG/SPRAY NASAL 16GM EA NOSTRIL SCH (09:18)
--- NOTE | 2019-05-26 09:51 | P.PN ---
Subjective This is a pleasant 64 years old female with past medical history of hyperlipidemia, hypertension, CVA/TIA, metastatic left breast cancer in 1998 and the spine cancer in 2018, mostly its metastasis from her breast cancer, end- stage renal disease on dialysis, atrial fibrillation with RVR, she was recently discharged from the hospital for recent pneumonia and respiratory failure Patient was transferred from [facility] for GI hemorrhage and hypotension. At the [facility] she was confused and patient was found to be hypotensive and hypoxic with oxygen saturations at 78%, on her way to the hospital patient started waking up with supplemental oxygen. At first patient was sent to [facility] before she was transferred to the current hospital [place] labs reviewed, it looks like BMP and liver enzymes were unremarkable, hemoglobin was 6.9, occult blood in the stools positive, urinalysis showing doubly BC of 30-50 with positive nitrite. EKG showing normal sinus rhythm at [address]-T changes with QTC 498 Patient blood pressure was hypotensive with 77/52, she's been afebrile. Labs show hemoglobin 7 with hematocrit of 20.5, wBC 8.1K and platelet count 76k. Sodium 131, creatinine 3.5, liver enzymes mildly elevated at 79 and 58. INR is 1.1. Urine analysis is indicating for infection Patient is getting 1 unit of blood transfusion 05/25/2019 Patient resting comfortably in bed, she remains in the ICU currently. No chest pain or dyspnea. Patient with no nausea vomiting, she is passing gas but no bowel movement, no abdominal pain, she is on clear diet and wants to be advanced to soft area at she still have Hunter catheter with light brown urine, less turbid than yesterday. Hemoglobin stable at 7.2, WBC is 10.3 K, sodium 133 is stable. Creatinine went up to 4.2 slight improvement. [employer] evaluated the patient and recommended hemodialysis today,. Pulmonary/critical care team is still following the patient closely 05/26/2019 Patient is seen in the ICU, patient is on soft diet with no nausea vomiting or abdominal pain. Patient has no bowel movement yet. She underwent hemodialysis yesterday and her oxygen requirement is improved from 12 down to 6-7 L/m, she had right upper chest catheter, also Hunter catheter with light brown urine is improving with antibiotics. Patient is still tachypneic with a breathing rate 24-30, her support vitals stable, and patient is afebrile. Her hemoglobin today dropped to 6.3 and she is getting 1 unit of blood transfusion, also patient is a scheduled to have hemodialysis today. Liver enzymes are slightly elevated. Review of systems CONSTITUTIONAL: No fever, no malaise, no fatigue. HEENT: No recent visual problems or hearing problems. Denied any sore throat. CARDIOVASCULAR: No orthopnea, PND, no palpitations, no syncope. PULMONARY: no hemoptysis. GASTROINTESTINAL: No diarrhea, no nausea, no vomiting, no abdominal pain. Normoactive bowel sounds. NEUROLOGICAL: No headaches, no weakness, no numbness. HEMATOLOGICAL: Denies any bleeding or petechiae. GENITOURINARY: Denies any burning micturition, frequency, or urgency. MUSCULOSKELETAL/RHEUMATOLOGICAL: Denies any joint pain, swelling, or any muscle pain. ENDOCRINE: Denies any polyuria or polydipsia. Active Medications Generic Name Dose Route Start Last Admin Trade Name Freq PRN Reason Stop Dose Admin Albuterol Sulfate 2.5 mg 05/24/19 15:54 05/25/19 15:40 Ventolin Nebulized INHALATION 2.5 mg RT-Q4H PRN Administration Shortness Of Breath Alprazolam 0.25 mg 05/24/19 15:56 Xanax PO TID PRN Anxiety Amiodarone HCl 200 mg 05/26/19 09:15 05/26/19 09:18 Cordarone PO Not Given DAILY [facility] Fluticasone Propionate 1 spray 05/25/19 09:00 05/26/19 09:18 Flonase Nasal [place] EA NOSTRIL Not Given DAILY [facility] Gabapentin 600 mg 05/24/19 21:00 05/25/19 19:59 Neurontin PO 600 mg HS [facility] Administration Norepinephrine Bitartrate 32 250 mls @ 3.083 mls/hr 05/24/19 13:30 05/26/19 02:00 mg/ Sodium Chloride IV 0 mcg/kg/min .Q24H [facility] 0 mls/hr Titration Protocol 0.05 MCG/KG/MIN Sodium Chloride 1,000 mls @ 20 mls/hr 05/24/19 14:00 05/25/19 17:08 Saline 0.9% IV 20 mls/hr .Q24H [facility] Administration Piperacillin Sod/Tazobactam 100 mls @ 25 mls/hr 05/24/19 21:00 05/26/19 09:17 Sod 3.375 gm/ Sodium Chloride IVPB 25 mls/hr Q12HR [facility] Administration Miscellaneous Information 1 each 05/25/19 06:36 Potassium Per Protocol MISCELLANE DAILY PRN Per Protocol Protocol Miscellaneous Information 1 each 05/26/19 05:59 Potassium Per Protocol MISCELLANE DAILY PRN Per Protocol Protocol Naloxone HCl 0.2 mg 05/24/19 13:56 Narcan IV Q2M PRN Opioid Reversal Nystatin 500,000 unit 05/25/19 18:00 05/26/19 09:17 Mycostatin Oral Susp PO 500,000 unit QID [facility] Administration Pantoprazole Sodium 40 mg 05/24/19 14:00 05/26/19 09:17 Protonix IV 40 mg BID [facility] Administration Sucralfate 1 gm 05/24/19 17:30 05/26/19 06:35 Carafate PO Not Given [facility] Objective - Vital Signs Vital signs: Vital Signs Temp 97.8 F 05/26/19 09:26 Pulse 97 05/26/19 09:26 Resp 24 05/26/19 09:26 BP 124/75 05/26/19 09:26 Pulse Ox 90 L 05/26/19 09:26 Intake & Output 05/25/19 05/26/19 05/26/19 18:59 06:59 18:59 Intake Total 1023.430 276.289 730 Output Total 2030 15 15 Balance -1006.570 261.289 715 Weight 132.7 kg 131.5 kg Intake: IV 320 270 120 NS 220 170 20 Piperacillin-Tazobactam 3 100 100 100 .375 gm In Sodium Chloride 0.9% 100 ml @ 25 mls/hr IVPB Q12HR [facility] Rx #:[id number] Intake, IV Titration 103.430 6.289 Amount Norepinephrine 32 mg In 53.430 6.289 Sodium Chloride 0.9% 218 ml @ 0.05 MCG/KG/MIN 3. 083 mls/hr IV .Q24H [facility] Rx#:[id number] Piperacillin-Tazobactam 3 50 .375 gm In Sodium Chloride 0.9% 100 ml @ 25 mls/hr IVPB Q12HR [facility] Rx #:[id number] Oral 600 Blood Product 0 610 Rc As-1 Unit 0 310 [id number] Output: Urine 30 15 15 Other 2000 Other: Voiding Method Indwelling Catheter Indwelling Catheter - Exam GENERAL: The patient is alert and oriented x3, not in any acute distress. Obese HEENT: Pupils are round and equally reacting to light. EOMI. No scleral icterus. No conjunctival pallor. Normocephalic, atraumatic. No pharyngeal erythema. No thyromegaly. CARDIOVASCULAR: S1 and S2 present. No murmurs, rubs, or gallops. PULMONARY: Chest is clear to auscultation, no wheezing or crackles. ABDOMEN: Soft, nontender, nondistended, normoactive bowel sounds. No palpable organomegaly. MUSCULOSKELETAL: No joint swelling or deformity. EXTREMITIES: No cyanosis, clubbing, or pedal edema. NEUROLOGICAL: Gross neurological examination did not reveal any focal deficits. SKIN: No rashes. No petechiae - Labs CBC & Chem 7: 05/26/19 05:00 05/26/19 05:00 Labs: Abnormal Lab Results - Last 24 Hours (Table) 05/24/19 05/26/19 05/26/19 Range/Units 13:10 05:00 05:00 RBC 1.86 L (3.80-5.40) m/uL Hgb 6.3 L* (11.4-16.0) gm/dL Hct 18.9 L* (34.0-46.0) % MCV 101.6 H (80.0-100.0) fL RDW 22.6 H (11.5-15.5) % Plt Count 65 L (150-450) k/uL Lymphocytes # 0.2 L (1.0-4.8) k/uL Macrocytosis Marked A Sodium 134 L (137-145) mmol/L Potassium 3.1 L (3.5-5.1) mmol/L BUN 24 H (7-17) mg/dL Creatinine 3.68 H (0.52-1.04) mg/dL Glucose 71 L (74-99) mg/dL Calcium 6.2 L* (8.4-10.2) mg/dL Ionized Calcium Peter (4.5-5.3) mg/dL AST 55 H (14-36) U/L ALT 53 H (9-52) U/L Total Protein 4.1 L (6.3-8.2) g/dL Albumin 1.8 L (3.5-5.0) g/dL Crossmatch See Detail 05/26/19 Range/Units 05:00 RBC (3.80-5.40) m/uL Hgb (11.4-16.0) gm/dL Hct (34.0-46.0) % MCV (80.0-100.0) fL RDW (11.5-15.5) % Plt Count (150-450) k/uL Lymphocytes # (1.0-4.8) k/uL Macrocytosis Sodium (137-145) mmol/L Potassium (3.5-5.1) mmol/L BUN (7-17) mg/dL Creatinine (0.52-1.04) mg/dL Glucose (74-99) mg/dL Calcium (8.4-10.2) mg/dL Ionized Calcium Peter 4.0 L (4.5-5.3) mg/dL AST (14-36) U/L ALT (9-52) U/L Total Protein (6.3-8.2) g/dL Albumin (3.5-5.0) g/dL Crossmatch Microbiology - Last 24 Hours (Table) 05/24/19 13:39 Blood Culture - Preliminary Blood No Growth after 24 hours Assessment and Plan Assessment: Acute GI bleed Acute blood loss anemia Acute urinary tract infection Hypotension secondary to above, Possible combined septic and hemorrhagic shock recent pneumonia and respiratory failure End-stage renal disease on dialysis, patient was started on dialysis last admission at [place] Atrial fibrillation Hypertension Hyperlipidemia CVA/TIA, with left hemiparesis Thrombocytopenia History of left breast cancer in 1997, status post breast surgery, metastatic to the spine and liver Plan: This is a pleasant 64 years old female who presents with GI bleed and hypotension with picture of shock. Central line placement, transfuse blood as needed to keep hemoglobin above 7. Monitor vitals and hemoglobin. Continue with Protonix IV. we Appreciate critical care team and GI team and follow the recommendation. Nephrology consult is appreciated, planned for hemodialysis. Continue with Zosyn. Cardiology on the case however patient is off anticoagulation for her acute GI bleed. Labs and medication were reviewed.. Continue same treatment. Continue with symptomatic treatment. Resume home medication. Monitor lytes and vitals. DVT and GI prophylaxis. Further recommendations of the clinical course of the patient DVT prophylaxis: No heparin and review of GI bleed GI Prophylaxis: Protonix Prognosis is guarded
--- NOTE | 2019-05-26 10:55 | PN ---
PROGRESS NOTE This is a lady with metastatic breast cancer, who sees Dr. Serna in the outpatient setting. She had a prolonged hospital stay and she also has history of paroxysmal atrial fib with impaired LV function with moderate to severe aortic stenosis and regurgitation. She apparently was discharged and came back into the hospital. She has end-stage renal disease and apparently had hypotension during dialysis and was brought in here. At this time, she remains in atrial fibrillation. The rate is controlled on oral medications in the range of 100-110, irregularly irregular. She is also quite anemic. She is off the Levophed drip at this time. She appears to be resting comfortably, but appears exhausted. I am not sure she is a good candidate for any anticoagulation given her multiple comorbid conditions and anemia. On examination, her blood pressure is 120/70, pulse rate is about 100 per minute, irregular. HEENT: Unremarkable, fundus was not examined by me. NECK: Supple. There is JVD of 1 cm, no carotid bruit. HEART: S1, S2 with irregular rhythm noted. Short systolic murmur is audible at the base. LUNGS: Reveal diminished air entry. ABDOMEN: Soft. Lower extremities reveal diminished pulses. There is improvement in her overall edema. She is currently on multiple antibiotics. She is also on amiodarone. Her beta linda was held yesterday. I am recommending that we decrease the amiodarone to 200 mg daily. Cardiac-mendoza, no other intervention. Based on clinical course, we will make further recommendations. MMODL / IJN: [id number] / MTDD
[2019-05-26] MEDS ORDERED: FUROSEMIDE 10 MG/ML 10 ML VIAL IV STA (11:07)
--- NOTE | 2019-05-26 11:07 | P.PN ---
Subjective Patient is seen in follow-up for acute kidney injury, currently hemodialysis dependent. Hemoglobin 6.3 this morning and she has received 2 units of blood transfusion. No active bleeding. No chest pain or shortness of breath. Vital signs are stable. General: The patient appeared well nourished and normally developed. HEENT: Head exam is unremarkable. Neck is without jugular venous distension. LUNGS: Lungs are clear to auscultation and percussion. Breath sounds decreased. HEART: Rate and Rhythm are regular. First and second heart sounds normal. No murmurs, rubs or gallops. ABDOMEN: Abdominal exam reveals normal bowel sounds. Non-tender and non- distended. No evidence of peritonitis. EXTREMITITES: 1+ edema. Objective - Vital Signs Vital signs: Vital Signs Temp 97.8 F 05/26/19 09:26 Pulse 95 05/26/19 10:00 Resp 40 H 05/26/19 10:00 BP 103/58 05/26/19 10:00 Pulse Ox 98 05/26/19 10:00 Intake & Output 05/25/19 05/26/19 05/26/19 18:59 06:59 18:59 Intake Total 1023.430 276.289 740 Output Total 2030 15 15 Balance -1006.570 261.289 725 Weight 132.7 kg 131.5 kg Intake: IV 320 270 130 NS 220 170 30 Piperacillin-Tazobactam 3 100 100 100 .375 gm In Sodium Chloride 0.9% 100 ml @ 25 mls/hr IVPB Q12HR [facility] Rx #:[id number] Intake, IV Titration 103.430 6.289 Amount Norepinephrine 32 mg In 53.430 6.289 Sodium Chloride 0.9% 218 ml @ 0.05 MCG/KG/MIN 3. 083 mls/hr IV .Q24H [facility] Rx#:[id number] Piperacillin-Tazobactam 3 50 .375 gm In Sodium Chloride 0.9% 100 ml @ 25 mls/hr IVPB Q12HR [facility] Rx #:[id number] Oral 600 Blood Product 0 610 Rc As-1 Unit 0 310 [id number] Output: Urine 30 15 15 Other 2000 Other: Voiding Method Indwelling Catheter Indwelling Catheter Indwelling Catheter - Labs CBC & Chem 7: 05/26/19 05:00 05/26/19 05:00 Labs: Abnormal Lab Results - Last 24 Hours (Table) 05/24/19 05/25/19 05/26/19 Range/Units 13:10 07:15 05:00 RBC 1.86 L (3.80-5.40) m/uL Hgb 6.3 L* (11.4-16.0) gm/dL Hct 18.9 L* (34.0-46.0) % MCV 101.6 H (80.0-100.0) fL RDW 22.6 H (11.5-15.5) % Plt Count 65 L (150-450) k/uL Lymphocytes # 0.2 L (1.0-4.8) k/uL Macrocytosis Marked A Sodium (137-145) mmol/L Potassium (3.5-5.1) mmol/L BUN (7-17) mg/dL Creatinine (0.52-1.04) mg/dL Glucose (74-99) mg/dL Calcium (8.4-10.2) mg/dL Ionized Calcium Peter (4.5-5.3) mg/dL AST (14-36) U/L ALT (9-52) U/L Total Protein (6.3-8.2) g/dL Albumin (3.5-5.0) g/dL PTH Intact 213.4 H (14.0-72.0) pg/mL Crossmatch See Detail 05/26/19 05/26/19 Range/Units 05:00 05:00 RBC (3.80-5.40) m/uL Hgb (11.4-16.0) gm/dL Hct (34.0-46.0) % MCV (80.0-100.0) fL RDW (11.5-15.5) % Plt Count (150-450) k/uL Lymphocytes # (1.0-4.8) k/uL Macrocytosis Sodium 134 L (137-145) mmol/L Potassium 3.1 L (3.5-5.1) mmol/L BUN 24 H (7-17) mg/dL Creatinine 3.68 H (0.52-1.04) mg/dL Glucose 71 L (74-99) mg/dL Calcium 6.2 L* (8.4-10.2) mg/dL Ionized Calcium Peter 4.0 L (4.5-5.3) mg/dL AST 55 H (14-36) U/L ALT 53 H (9-52) U/L Total Protein 4.1 L (6.3-8.2) g/dL Albumin 1.8 L (3.5-5.0) g/dL PTH Intact (14.0-72.0) pg/mL Crossmatch Microbiology - Last 24 Hours (Table) 05/24/19 13:39 Blood Culture - Preliminary Blood No Growth after 24 hours Assessment and Plan Plan: Assessment: 1. Acute kidney injury, currently hemodialysis dependent. Maintain on hemodialysis on Sunday schedule. She has a right IJ permacath. Etiology is vancomycin toxicity from previous admission. Remains oliguric. 2. Volume overload. 3. Hypertension with chronic kidney disease. Controlled. 4. Hypokalemia from poor oral intake. 5. Acute blood loss anemia status post blood transfusion. 6. Hypocalcemia secondary to hypoalbuminemia. Corrected calcium near 8. Plan: Currently seen while undergoing hemodialysis. May need extra treatment tomorrow depending on volume status. Replace potassium. Monitor hemoglobin. Continue to monitor renal function and urine output.. Lasix 80 mg IV once today.
[2019-05-26] MEDS: ALBUTEROL NEBULIZED 2.5 MG/3 ML INHALATION PRN ×3 (11:19→19:55)
[2019-05-26 11:42] LABS: Ferritin 1168.5 ng/mL (10.0-291.0); Iron Saturation 13.15 (12.00-45.00)
--- NOTE | 2019-05-26 12:39 | P.PN ---
Subjective Progress Note Date: 05/26/19 Principal diagnosis: Acute GI bleeding This is a 64-year-old female patient got transferred from [facility] [place] for GI bleed and hypotension. The patient is well-known to us. In fact she was recently discharged from the hospital after being treated with a combination of medical problems including shortness of breath, sepsis, renal failure and during the course of the treatment the patient developed an acute kidney injury/ATN and she became dialysis dependent. She was undergoing dialysis on a periodic basis. She was infected with staph in the blood and enterococcus in the urine and ultimately she was stabilized and discharged. Note that the patient has metastatic breast cancer and she has also skeletal metastases from breast cancer primary. She has CVA pneumonia left-sided the body, paroxysmal atrial fibrillation and hyperlipidemia. Primary oncologist Dr. Wheat. She has known metastatic Breast Cancer. Most recently progression in spiny bone and status post radiation. Since radiation increased dysphagia, secretion, and pain. Increased Shortness of breath and chills. She has open burn from radiation. During the earlier presentation, the patient had pancytopenia related to treatment and the patient has been off treatment since. The patient has a combi nation of systolic and diastolic heart failure. She has moderate concentric LVH/hypertensive heart disease with a LV function of 45% and moderate degree of aortic sclerosis and moderate to severe aortic regurgitation and severe aortic stenosis also present on the echocardiogram that was done a few months back. She has a peak gradient across the valve of 76 mmHg and the patient also has secondary pulmonary hypertension with a right posterior systolic pressure estimated to be 73. During this current admission, hemoglobin was at 6.9. Stool for occult blood was positive. The patient presented with a BP of 77/52 and her hemoglobin was at 7.0. The patient was hypotensive and the triple-lumen catheter was established in the emergency department. The patient was started on IV fluids. The patient got transferred to the intensive care unit for further care.The chest x-ray showing acute pulmonary edema. She is currently on 4liters by nasal cannula and her pulse ox is ranging between 90-95%. Head there is a Hunter catheter in place and the patient has dark brownish chocolatey looking cloudy urine output. The patient is currently receiving a packed cell transfusion. She is also on norepinephrine infusion at 0.1 mcg/kg per minute. She is awake and alert. She states that during the last 2 sessions of hemodialysis, she became quite ill and she developed hypotension and it had to b e discontinued at the end. Her last hemodialysis session was on Sunday. Currently she is afebrile. Mental status is within normal limits. She is following commands and has secretions appropriately. No focal neurological deficits. Some trace edema in lower extremities bilaterally. On 05/25/2019 I'm seeing this patient for a follow-up. Not the patient is awake and alert and she is following commands and answering questions appropriately. She became slightly more hypoxic compared to yesterday and the patient was placed on 15 L of oxygen by nasal cannula and her pulse ox is ranging between 90-94%. Her chest x-ray still showing acute pulmonary edema. Meanwhile, the patient is still being cheered for an underlying hypotension/sepsis. She received a unit of packed RBC for suspected GI bleed. Hemoglobin today stable and as above 7, specifically at 7.2 and stable. The patient was suspected to have underlying UTI and sepsis. Urine culture sent. Blood cultures sent. She is currently on IV Zosyn. She is receiving pressors and levo fed has been weaned down considerably compared to yesterday. No evidence of any external GI bleeding. No evidence of any altered mentation. No headaches. Creatinine is at 4.2 and the BUN is 32. Her last hemodialysis session was Sunday the patient was unable to complete a full dialysis session because of hemodynamic instability. She is currently on norepinephrine infusion at 0.06 units per kilograms per minute. Potassium needs to be replaced. The fives on the case. Reevaluated today on 05/26/2019, patient remains in the ICU, she is off norepinephrine, no active GI bleeding at present, however the patient received a total of 2 units of packed RBCs since admission. Her hemoglobin this morning was 6.3, and she is in the process of receiving her second unit of packed RBCs. She was seen by gastroenterology on consultation, and I recommended conservative measures, advised that we continue broad-spectrum antibiotics for her urosepsis, and to monitor CBC on a daily basis, no plans for endoscopic intervention at this time. Seen by nephrology, and the patient is to continue hemodialysis. She does have clearly evidence of volume overload, hypertension and chronic kidney disease as well as acute blood loss anemia with hypocalcemia and hypoalbuminemia. Seen by cardiology, I recommended that we continue amiodarone, continue to hold the beta blockers also recommended cutting down amiodarone to 200 mg daily. And continue hemodialysis for her fluid overload. Today's chest x-ray was reviewed all labs were reviewed and hemoglobin again is 6.3 this morning. Electrolytes showed a low potassium of 3.1 being corrected as per p rotocol. Patient is presently off norepinephrine. Remains on antibiotics for her urosepsis. She remains on Zosyn. Urine culture is pending, blood culture is negative so far. Objective - Vital Signs Vital signs: Vital Signs Temp 98.0 F 05/26/19 12:17 Pulse 112 H 05/26/19 11:32 Resp 20 05/26/19 12:17 BP 117/51 05/26/19 12:17 Pulse Ox 94 L 05/26/19 11:00 Intake & Output 05/25/19 05/26/19 05/26/19 18:59 06:59 18:59 Intake Total 1023.430 276.289 750 Output Total 2030 15 2515 Balance -1006.570 261.289 -1765 Weight 132.7 kg 131.5 kg Intake: IV 320 270 140 NS 220 170 40 Piperacillin-Tazobactam 3 100 100 100 .375 gm In Sodium Chloride 0.9% 100 ml @ 25 mls/hr IVPB Q12HR [facility] Rx #:[id number] Intake, IV Titration 103.430 6.289 Amount Norepinephrine 32 mg In 53.430 6.289 Sodium Chloride 0.9% 218 ml @ 0.05 MCG/KG/MIN 3. 083 mls/hr IV .Q24H [facility] Rx#:[id number] Piperacillin-Tazobactam 3 50 .375 gm In Sodium Chloride 0.9% 100 ml @ 25 mls/hr IVPB Q12HR [facility] Rx #:[id number] Oral 600 Blood Product 0 610 Rc As-1 Unit 0 310 [id number] Output: Urine 30 15 15 Hemodialysis 2500 Other 2000 Other: Voiding Method Indwelling Catheter Indwelling Catheter Indwelling Catheter - Exam Physical Exam: Revealed 64-year-old female, morbidly obese, on and non- rebreather mask at present. Head: Atraumatic, normocephalic. HEENT:[Neck is supple.] [No neck masses.] [No thyromegaly.] [No JVD.] PERRLA, EOMI, no icterus. Chest: Crackles and rhonchi noted bilaterally. Symmetrical chest expansion.] Cardiac Exam: Irregular irregular rhythm. [Normal S1 and S2, no S3 gallop, no murmur.] Abdomen: [Obese, Soft, nontender, no megaly, no rebound, no guarding, normal bowel sounds.] Extremities: [No clubbing, 1+ bipedal edema, no cyanosis.] Good pulses bilaterally. Neurological Exam: [No focal neurologic deficit.] Alert oriented 3. Psychiatric: Normal mood, affect and normal mental status examination. Skin: No rashes. - Labs CBC & Chem 7: 05/26/19 05:00 05/26/19 05:00 Labs: Abnormal Lab Results - Last 24 Hours (Table) 05/24/19 05/25/19 05/26/19 Range/Units 13:10 07:15 05:00 RBC (3.80-5.40) m/uL Hgb (11.4-16.0) gm/dL Hct (34.0-46.0) % MCV (80.0-100.0) fL RDW (11.5-15.5) % Plt Count (150-450) k/uL Lymphocytes # (1.0-4.8) k/uL Macrocytosis Sodium (137-145) mmol/L Potassium (3.5-5.1) mmol/L BUN (7-17) mg/dL Creatinine (0.52-1.04) mg/dL Glucose (74-99) mg/dL Calcium (8.4-10.2) mg/dL Ionized Calcium Peter (4.5-5.3) mg/dL Iron 28 L (50-170) ug/dL TIBC 213 L (228-460) ug/dL Ferritin 1168.5 H (10.0-291.0) ng/mL AST (14-36) U/L ALT (9-52) U/L Lactate Dehydrogenase (313-618) U/L Total Protein (6.3-8.2) g/dL Albumin (3.5-5.0) g/dL PTH Intact 213.4 H (14.0-72.0) pg/mL Crossmatch See Detail 05/26/19 05/26/19 05/26/19 Range/Units 05:00 05:00 05:00 RBC 1.86 L (3.80-5.40) m/uL Hgb 6.3 L* (11.4-16.0) gm/dL Hct 18.9 L* (34.0-46.0) % MCV 101.6 H (80.0-100.0) fL RDW 22.6 H (11.5-15.5) % Plt Count 65 L (150-450) k/uL Lymphocytes # 0.2 L (1.0-4.8) k/uL Macrocytosis Marked A Sodium 134 L (137-145) mmol/L Potassium 3.1 L (3.5-5.1) mmol/L BUN 24 H (7-17) mg/dL Creatinine 3.68 H (0.52-1.04) mg/dL Glucose 71 L (74-99) mg/dL Calcium 6.2 L* (8.4-10.2) mg/dL Ionized Calcium Peter 4.0 L (4.5-5.3) mg/dL Iron (50-170) ug/dL TIBC (228-460) ug/dL Ferritin (10.0-291.0) ng/mL AST 55 H (14-36) U/L ALT 53 H (9-52) U/L Lactate Dehydrogenase (313-618) U/L Total Protein 4.1 L (6.3-8.2) g/dL Albumin 1.8 L (3.5-5.0) g/dL PTH Intact (14.0-72.0) pg/mL Crossmatch 05/26/19 Range/Units 10:41 RBC (3.80-5.40) m/uL Hgb (11.4-16.0) gm/dL Hct (34.0-46.0) % MCV (80.0-100.0) fL RDW (11.5-15.5) % Plt Count (150-450) k/uL Lymphocytes # (1.0-4.8) k/uL Macrocytosis Sodium (137-145) mmol/L Potassium (3.5-5.1) mmol/L BUN (7-17) mg/dL Creatinine (0.52-1.04) mg/dL Glucose (74-99) mg/dL Calcium (8.4-10.2) mg/dL Ionized Calcium Peter (4.5-5.3) mg/dL Iron (50-170) ug/dL TIBC (228-460) ug/dL Ferritin (10.0-291.0) ng/mL AST (14-36) U/L ALT (9-52) U/L Lactate Dehydrogenase 4156 H (313-618) U/L Total Protein (6.3-8.2) g/dL Albumin (3.5-5.0) g/dL PTH Intact (14.0-72.0) pg/mL Crossmatch Microbiology - Last 24 Hours (Table) 05/24/19 13:39 Blood Culture - Preliminary Blood No Growth after 24 hours Assessment and Plan Assessment: Impression: 1 hypotension, multifactorial, I suspect the patient presented with sepsis and urinary tract infection, and also related to her GI bleeding and significant drop in the hemoglobin since admission. Patient is status post blood transfusion, 2 units of packed RBCs were given. Not to mention the patient is known to have history of valvular heart disease with aortic stenosis, regurgitation, LV dysfunction, all contributing to her hypotension. 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 3 suspect urosepsis 4 GI bleeding exact etiology is not clear but could be as noted above. 5 severe aortic stenosis and aortic regurgitation 6 acute on chronic pulmonary edema and history of LV dysfunction/systolic in nature. 7 end-stage renal disease, on hemodialysis 8 obesity BMI of 49.8 9 history of CVA and left-sided weakness 10 metastatic breast cancer treated by chemotherapy and radiation therapy for her skeletal metastasis 11 hyperlipidemia Recommendation: Continue antibiotics/Zosyn, adjust based on final cultures. Continue hemodialysis. Continue bronchodilators. Continue to monitor hemoglobin, continue Protonix, patient is being followed by gastroenterology, if she continues to bleed she may require endoscopic evaluation. At this point we'll continue to treat conservatively. Overall prognosis remains extremely poor and guarded, patient remains critically ill, and critical care time is 32 minutes. Time with Patient: Greater than 30
[2019-05-26] MEDS: SODIUM CHLORIDE 0.9% 1,000 ML IV SCH (14:23)
[2019-05-26] MEDS: NOREPINEPHRINE 32 MG in SODIUM CHLORIDE 0.9% 218 ML IV SCH (14:23)
--- NOTE | 2019-05-26 18:06 | PN ---
PROGRESS NOTE DATE OF DICTATION: 05/26/2019 The patient is a 64-year-old pleasant while female admitted with history of metastatic breast cancer with spinal metastasis who is currently undergoing chemo and radiation therapy. She was admitted to the hospital because of hypertension, possible sepsis and is presently on broad-spectrum antibiotics. She also was diagnosed with ATN during her last prolonged hospitalization for sepsis, which was 3 weeks ago. She has been on dialysis since then. She is doing better today. Tolerating regular diet well. Denies any abdominal pain. No nausea, vomiting. She has severe anemia with a hemoglobin of 7.4, requiring a unit of blood transfusion. Today's hemoglobin dropped to 6.3 g/dL, requiring 2 more units of blood transfusion. She feels somewhat short of breath, but she denies any abdominal pain, nausea, vomiting, diarrhea or rectal bleeding. PHYSICAL EXAMINATION: She appears comfortable. No apparent distress. VITAL SIGNS: Stable. Blood pressure 112/86, pulse rate 111 and afebrile. HEENT examination unremarkable. Conjunctivae pink. Sclerae anicteric. Oral cavity no lesions. NECK: No JVD or lymph node enlargement. CHEST: Clear to auscultation. HEART: Regular rate and rhythm. ABDOMEN: Soft. Bowel sounds are positive. Obese. EXTREMITIES: No pedal edema. SKIN: No rashes. NEUROLOGIC: Alert and oriented x3. No focal deficits. LABS TODAY: Hemoglobin 6.3, WBC 7.1, platelets 65,000. BUN 24, creatinine 3.5. IMPRESSION: 1. Sepsis/urinary tract infection, on broad-spectrum antibiotics. Her blood pressure remains more stable. Continues to remain on Levophed. 2. Severe anemia with Hemoccult-positive stool. Her initial hemoglobin was 7.4, and she required a unit of blood transfusion. Today it dropped to 6.3, and she is receiving a second unit of blood transfusion. Clinically no evidence of active bleeding. Stool Hemoccult was positive, but she had brown stool this afternoon. 3. Metastatic breast cancer, for which she is undergoing chemotherapy and is status post radiation therapy that ended 2 months ago. RECOMMENDATIONS: 1. Continue with broad-spectrum antibiotics. 2. In regards to the anemia, I agree with blood transfusion. At this time, the anemia appears to be multifactorial in etiology. Clinically she does not have any evidence of active bleeding. She does have a component of occult GI blood loss. Overall she is too unstable to have any endoscopic evaluation, but if she continues to drop her hemoglobin we will consider further workup. At this time we will continue with conservative approach and follow her closely during her hospital stay. Thank you for this consultation. ZEB / SHARI: [id number] /
[2019-05-26 18:50] LABS: Anisocytosis Moderate; HCT 24.3 % (34.0-46.0); Hypochromasia Slight; MCH 34.1 pg (25.0-35.0); MCHC 34.3 g/dL (31.0-37.0); MCV 99.4 fL (80.0-100.0); Macrocytosis Moderate; Mean Platelet Volume 8.7; Poikilocytosis Slight; RBC 2.44 m/uL (3.80-5.40); RDW 21.8 % (11.5-15.5); WBC 7.1 k/uL (3.8-10.6)
[2019-05-26 18:51] LABS: HGB 8.3 gm/dL (11.4-16.0)
[2019-05-26 19:16] LABS: Platelet Count 75 k/uL (150-450)
--- NOTE | 2019-05-26 19:21 | P.CONS ---
History of Present Illness - Reason for Consult Consult date: 05/26/19 Metastatic Breast Cancer Requesting physician: Sudeep Manzano - Chief Complaint Hypotensive - History of Present Illness Santa is a patient well known to us, primary oncologist Dr. Wheat. She has known metastatic Breast Cancer. Most recently progression in spiny bone and s tatus post radiation. Recent admitted in early March 2019 with increased dysphagia, secretion, and pain. Again in Mid March with Increased Shortness of breath and chills. She had open burn from radiation, these have since resolved. She has been treated most recently with Faslodex and Ibrance And then a prolonged hospital stay Apr 2019 where she was admitted for T-Max 102, Fevers and Chills. This recent hospitalization was complicated by acute renal failure, which ended up leading to need for hemodialysis managed by nephrology . She has been readmitted with SOB, Hypoxia wearing a non-rebreather and hypotension. Review of Systems A 14 point review of systems was assessed and completed and are all negative except for HPI Past Medical History Past Medical History: Cancer, CVA/TIA, Hyperlipidemia, Hypertension, Renal Disease Additional Past Medical History / Comment(s): hx CVA left side 2017, Left breast cancer 1997, spine cancer 2017, KIT currently chronic kidney failure and the patient is requiring hemodialysis periodically 3 times a week my recent hospi talization for sepsis History of Any Multi-Drug Resistant Organisms: None Reported Past Surgical History: Breast Surgery, Hysterectomy, Joint Replacement Additional Past Surgical History / Comment(s): left knee replacement, several breast biopsies Past Anesthesia/Blood Transfusion Reactions: No Reported Reaction Past Psychological History: No Psychological Hx Reported Smoking Status: Former smoker - Past Family History Father Family Medical History: Cancer Additional Family Medical History / Comment(s): Father from cancer in the lining of his lungs. He had occupational chemical exposures. Mother Family Medical History: Cancer, Coronary Artery Disease (CAD) Additional Family Medical History / Comment(s): Mother had colon cancer with surgery. She also had heart disease. Medications and Allergies Home Medications Medication Instructions Recorded Confirmed Type Aspirin [Adult Low Dose Aspirin EC] 162 mg PO DAILY 07/03/18 05/24/19 History Albuterol Inhaler [Ventolin Hfa 2 puff INHALATION RT-Q4H PRN 03/05/19 05/24/19 History Inhaler] Fluticasone Nasal [place] [Flonase 1 spray EA NOSTRIL DAILY 03/05/19 05/24/19 History Nasal [place]] Polyethylene Glycol 3350 [Miralax] 17 gm PO DAILY PRN #30 powd.pack 03/11/19 05/24/19 Rx Sucralfate [Carafate] 1 gm PO ACHS #120 tablet 03/11/19 05/24/19 Rx ALPRAZolam [Xanax] 0.25 mg PO TID PRN #6 tab 05/20/19 05/24/19 Rx Amiodarone [Cordarone] 200 mg PO BID tab 05/20/19 05/24/19 Rx Calcium Carbonate [Tums] 1,000 mg PO TID chew 05/20/19 05/24/19 Rx Dronabinol [Marinol] 5 mg PO AC-BID #3 cap 05/20/19 05/24/19 Rx Gabapentin [Neurontin] 600 mg PO HS #3 cap 05/20/19 05/24/19 Rx Ipratropium-Albuterol Nebulize 3 ml INHALATION RT-Q4H PRN 05/20/19 05/24/19 Rx [Duoneb 0.5 mg-3 mg/3 ml Soln] ampul.neb Ipratropium-Albuterol Nebulize 3 ml INHALATION RT-QID ampul.neb 05/20/19 Rx [Duoneb 0.5 mg-3 mg/3 ml Soln] Melatonin 3 mg PO HS tablet 05/20/19 05/24/19 Rx Metoprolol Succinate (ER) [Toprol 50 mg PO DAILY tab.er.24h 05/20/19 05/24/19 Rx XL] Ondansetron [Zofran] 4 mg PO Q8HR PRN #2 tab 05/20/19 05/24/19 Rx INSULIN ASPART (NovoLOG) [NovoLOG See Protocol SQ ACHS 05/24/19 05/24/19 History (formulary)] Allergies Allergy/AdvReac Type Severity Reaction Status Date / Time No Known Allergies Allergy Verified 05/24/19 13:45 Physical Exam Vitals: Vital Signs Temp Pulse Resp BP BP Pulse Ox 05/26/19 09:26 97.8 F 97 24 124/75 90 L 05/26/19 09:15 98.7 F 98 27 H 117/52 91 L 05/26/19 09:00 93 30 H 133/60 91 L 05/26/19 08:00 98.7 F 97 23 108/64 88 L 05/26/19 07:00 91 15 104/73 95 05/26/19 06:58 98.8 F 92 15 104/73 95 05/26/19 06:36 88 L 05/26/19 06:30 101 H 20 133/51 89 L 05/26/19 06:28 98 F 98 16 128/49 90 L 05/26/19 06:18 98.8 F 100 18 133/51 89 L 05/26/19 06:10 97.5 F L 105 H 29 H 120/54 84 L 05/26/19 06:00 95 18 114/61 90 L 05/26/19 05:30 99 20 134/58 95 05/26/19 05:00 90 17 111/60 91 L 05/26/19 04:30 89 16 102/50 90 L 05/26/19 04:00 98.3 F 91 15 117/50 90 L 05/26/19 03:30 96 19 126/56 87 L 05/26/19 03:00 96 20 118/54 89 L 05/26/19 02:30 92 15 105/57 90 L 05/26/19 02:00 96 18 122/60 91 L 05/26/19 01:30 98 20 115/51 86 L 05/26/19 01:00 101 H 18 114/58 90 L 05/26/19 00:30 20 110/42 86 L 05/26/19 00:00 98.8 F 101 H 21 125/54 95 05/25/19 23:30 105 H 18 100/50 80 L 05/25/19 23:00 98 20 97/42 97 05/25/19 22:30 97 18 106/43 97 05/25/19 22:00 100 20 110/46 98 05/25/19 21:30 102 H 19 98/48 99 05/25/19 21:00 101 H 19 99/65 95 05/25/19 20:30 103 H 22 107/46 94 L 05/25/19 20:00 98.7 F 111 H 18 115/54 91 L 05/25/19 19:30 100 20 108/49 97 05/25/19 19:00 104 H 26 H 111/56 85 L 05/25/19 18:30 108 H 26 H 114/57 93 L 05/25/19 18:00 118 H 33 H 121/52 83 L 05/25/19 17:30 114 H 25 H 105/58 95 05/25/19 17:00 103 H 20 117/56 95 05/25/19 16:30 105 H 25 H 136/54 97 05/25/19 16:00 109 H 24 133/60 91 L 05/25/19 15:50 106 H 05/25/19 15:40 107 H 05/25/19 15:30 98 21 135/55 91 L 05/25/19 15:00 107 H 6 L 84/48 89 L 05/25/19 14:30 98 24 124/109 99 05/25/19 14:00 95 20 111/100 97 05/25/19 13:30 109 H 14 117/93 85 L 05/25/19 13:00 101 H 25 H 119/54 05/25/19 12:30 91 21 119/56 05/25/19 12:13 98.2 F 20 115/55 05/25/19 12:00 93 24 131/51 98 05/25/19 11:30 80 20 127/59 94 L 05/25/19 11:00 92 24 137/63 92 L 05/25/19 10:30 76 15 126/60 100 05/25/19 10:00 98.0 F 79 15 125/61 99 Intake and Output 05/25/19 05/26/19 05/26/19 22:59 06:59 14:59 Intake Total 466.452 93.267 730 Output Total 10 15 15 Balance 456.452 78.267 715 Intake: IV 260 90 120 NS 160 90 20 Piperacillin-Tazobactam 3 100 100 .375 gm In Sodium Chloride 0.9% 100 ml @ 25 mls/hr IVPB Q12HR [facility] Rx #:[id number] Intake, IV Titration 106.452 3.267 Amount Norepinephrine 32 mg In 56.452 3.267 Sodium Chloride 0.9% 218 ml @ 0.05 MCG/KG/MIN 3. 083 mls/hr IV .Q24H [facility] Rx#:[id number] Piperacillin-Tazobactam 3 50 .375 gm In Sodium Chloride 0.9% 100 ml @ 25 mls/hr IVPB Q12HR [facility] Rx #:[id number] Oral 100 Blood Product 0 610 Rc As-1 Unit 0 310 [id number] Output: Urine 10 15 15 Other: Voiding Method Indwelling Catheter Indwelling Catheter Weight 131.5 kg General: Alert and Oriented x3, No Acute Distress Head: Normocytic, Atraumatic Neck: Supple Mouth: No Lesions, No Thrush Eyes: Non-sclerotic No Palpable cervical, supraclavicular, axillary adenopathy Heart: irregular Lungs: Diminished, increased effort non-rebreather Abdomen: Soft, Non-Distended, Non-Tended, BSx4 Extremities: No Edema, Equal Strength Neurological: No Focal Defects: No sensory or motor deficits noted Psych: Calm and cooperative Results CBC & Chem 7: 05/26/19 18:00 05/26/19 18:00 Labs: Abnormal Lab Results - Last 24 Hours (Table) 05/24/19 05/26/19 05/26/19 Range/Units 13:10 05:00 05:00 RBC 1.86 L (3.80-5.40) m/uL Hgb 6.3 L* (11.4-16.0) gm/dL Hct 18.9 L* (34.0-46.0) % MCV 101.6 H (80.0-100.0) fL RDW 22.6 H (11.5-15.5) % Plt Count 65 L (150-450) k/uL Lymphocytes # 0.2 L (1.0-4.8) k/uL Macrocytosis Marked A Sodium 134 L (137-145) mmol/L Potassium 3.1 L (3.5-5.1) mmol/L BUN 24 H (7-17) mg/dL Creatinine 3.68 H (0.52-1.04) mg/dL Glucose 71 L (74-99) mg/dL Calcium 6.2 L* (8.4-10.2) mg/dL Ionized Calcium Peter (4.5-5.3) mg/dL AST 55 H (14-36) U/L ALT 53 H (9-52) U/L Total Protein 4.1 L (6.3-8.2) g/dL Albumin 1.8 L (3.5-5.0) g/dL Crossmatch See Detail 05/26/19 Range/Units 05:00 RBC (3.80-5.40) m/uL Hgb (11.4-16.0) gm/dL Hct (34.0-46.0) % MCV (80.0-100.0) fL RDW (11.5-15.5) % Plt Count (150-450) k/uL Lymphocytes # (1.0-4.8) k/uL Macrocytosis Sodium (137-145) mmol/L Potassium (3.5-5.1) mmol/L BUN (7-17) mg/dL Creatinine (0.52-1.04) mg/dL Glucose (74-99) mg/dL Calcium (8.4-10.2) mg/dL Ionized Calcium Peter 4.0 L (4.5-5.3) mg/dL AST (14-36) U/L ALT (9-52) U/L Total Protein (6.3-8.2) g/dL Albumin (3.5-5.0) g/dL Crossmatch Microbiology - Last 24 Hours (Table) 05/24/19 13:39 Blood Culture - Preliminary Blood No Growth after 24 hours Assessment and Plan Plan: Assessment and Plan Macrocytic Anemia: - Likely secondary to bleeding. Acute Blood Loss - Secondary to chemotherapy with ibrance and Radiation - Hold chemotherapy at this time - Overall levels Stable Acute Hypoxic Respiratory Failure: - Wearning non-rebreather - We discussed if the need for intubation arouse and she states she would like to be intubated, but not senior care, and only if reversible Thrombocytopenia: Acute Renal Insufficiency: - Dialysis per Nephrology Metastatic Breast cancer - Bone - ?Progression - Xgeva,Faslodex and Ibrance recently prescribed at progression - XRT to spine recently completed - Chemo and Medications on hold at this time until resolution of current issues Neoplastic Related Pain: - Continue current pain regimen - Add bowel protocol. Acute Respiratory failure: - In ICU Care - Pulmonary Following Atrial Fibrillation with RVR: - Cardiology Primary and ICU Care for all acute issues. Continue to hold cancer treatments until stabilizes
[2019-05-26] MEDS: GABAPENTIN 300 MG CAP PO SCH (20:39)
[2019-05-27] MEDS: SUCRALFATE 1 GM TAB PO SCH ×4 (07:33→20:23)
[2019-05-27 08:04] LABS: Calcium 7.1 mg/dL (8.4-10.2); Magnesium 1.9 mg/dL (1.6-2.3); Potassium 4.2 mmol/L (3.5-5.1)
[2019-05-27 08:08] LABS: Anisocytosis Moderate; Basophils % (A) 0 %; Eosinophils # (A) 0.2 k/uL (0-0.7); Eosinophils % (A) 2 %; HCT 25.6 % (34.0-46.0); HGB 8.4 gm/dL (11.4-16.0); Hypochromasia Moderate; Lymphocytes # (A) 0.2 k/uL (1.0-4.8); Lymphocytes % (A) 4 %; MCH 33.6 pg (25.0-35.0); MCHC 32.9 g/dL (31.0-37.0); MCV 102.2 fL (80.0-100.0); Macrocytosis Marked; Mean Platelet Volume 9.4; Monocytes # (A) 0.4 k/uL (0-1.0); Monocytes % (A) 6 %; Neutrophils # (A) 5.6 k/uL (1.3-7.7); Neutrophils % (A) 86 %; Poikilocytosis Slight; RBC 2.51 m/uL (3.80-5.40); RDW 21.9 % (11.5-15.5); WBC 6.5 k/uL (3.8-10.6)
[2019-05-27 08:17] LABS: Platelet Count 78 k/uL (150-450)
--- NOTE | 2019-05-27 08:34 | XR ---
EXAMINATION TYPE: XR chest 1V DATE OF EXAM: 05/27/2019 HISTORY: Shortness of breath. COMPARISON: 05/26/2019 TECHNIQUE: Single view of the chest is submitted. FINDINGS: Pulmonary venous congestion with scattered interstitial edema. Infiltrates of other etiology not excl uded. Continued cardiomegaly. Central venous line unchanged in position. Hilar and mediastinal structures are within normal limits. Degenerative changes are seen of the dorsal spine. IMPRESSION: 1. Pulmonary venous congestion with scattered interstitial edema. Infiltrates of other etiology not excluded. Continued cardiomegaly.
[2019-05-27 09:02] LABS: Polychromasia Present
[2019-05-27] MEDS: AMIODARONE 200 MG TAB PO SCH (09:11)
[2019-05-27] MEDS: METOPROLOL TARTRATE 25 MG TAB PO SCH ×2 (09:11→20:23)
[2019-05-27] MEDS: PANTOPRAZOLE 40 MG/10 ML VIAL IV SCH ×2 (09:11→20:23)
[2019-05-27] MEDS: PIPERACILLIN-TAZOBACTAM 3.375 GM in SODIUM CHLORIDE 0.9% 100 ML IVPB SCH ×2 (09:12→20:23)
[2019-05-27] MEDS: FLUTICASONE 50MCG/SPRAY NASAL 16GM EA NOSTRIL SCH (09:12)
[2019-05-27] MEDS: NYSTATIN 100,000 UNIT/ML SUSP 500,000 UNIT/5 ML CUP PO SCH ×4 (09:13→20:24)
[2019-05-27] MEDS: ALBUTEROL NEBULIZED 2.5 MG/3 ML INHALATION PRN ×4 (09:35→19:51)
--- NOTE | 2019-05-27 09:51 | P.PN ---
Subjective This is a pleasant 64 years old female with past medical history of hyperlipidemia, hypertension, CVA/TIA, metastatic left breast cancer in 1998 and the spine cancer in 2018, mostly its metastasis from her breast cancer, end- stage renal disease on dialysis, atrial fibrillation with RVR, she was recently discharged from the hospital for recent pneumonia and respiratory failure Patient was transferred from [facility] for GI hemorrhage and hypotension. At the [facility] she was confused and patient was found to be hypotensive and hypoxic with oxygen saturations at 78%, on her way to the hospital patient started waking up with supplemental oxygen. At first patient was sent to [facility] before she was transferred to the current hospital Agar labs reviewed, it looks like BMP and liver enzymes were unremarkable, hemoglobin was 6.9, occult blood in the stools positive, urinalysis showing doubly BC of 30-50 with positive nitrite. EKG showing normal sinus rhythm at [address]-T changes with QTC 498 Patient blood pressure was hypotensive with 77/52, she's been afebrile. Labs show hemoglobin 7 with hematocrit of 20.5, wBC 8.1K and platelet count 76k. Sodium 131, creatinine 3.5, liver enzymes mildly elevated at 79 and 58. INR is 1.1. Urine analysis is indicating for infection Patient is getting 1 unit of blood transfusion 05/25/2019 Patient resting comfortably in bed, she remains in the ICU currently. No chest pain or dyspnea. Patient with no nausea vomiting, she is passing gas but no bowel movement, no abdominal pain, she is on clear diet and wants to be advanced to soft area at she still have Hunter catheter with light brown urine, less turbid than yesterday. Hemoglobin stable at 7.2, WBC is 10.3 K, sodium 133 is stable. Creatinine went up to 4.2 slight improvement. Independent Jeweler evaluated the patient and recommended hemodialysis today,. Pulmonary/critical care team is still following the patient closely 05/26/2019 Patient is seen in the ICU, patient is on soft diet with no nausea vomiting or abdominal pain. Patient has no bowel movement yet. She underwent hemodialysis yesterday and her oxygen requirement is improved from 12 down to 6-7 L/m, she had right upper chest catheter, also Hunter catheter with light brown urine is improving with antibiotics. Patient is still tachypneic with a breathing rate 24-30, her support vitals stable, and patient is afebrile. Her hemoglobin today dropped to 6.3 and she is getting 1 unit of blood transfusion, also patient is a scheduled to have hemodialysis today. Liver enzymes are slightly elevated. 05/27/2019 Patient is awake and alert, she is sitting up in bed, she is in respiratory distress on ventilation mask at 10 L oxygen via no debris that and she saturating 98%, she is slightly tachycardic 109-112, rest of vitals are unremar kable with blood pressure is 107/57, although it was lower this morning 90/56, patient is needing more oxygen requirement. She is in soft diet with no bowel movement since yesterday, however she is passing gas and tolerating her diet well. Left femoral and right upper chest catheters are intact and place. Hunter catheter would like to brown urine. Patient is planned for hemodialysis today. Independent Jeweler see him on the case. Scheuermann's on Zosyn and nystatin for her urinary tract infection, she is off Levophed. She is off anticoagulation from her A. fib with history of stroke due to recent drop in hemoglobin down to 6.3 needed a blood transfusion her hemoglobin today is 8.4 which is a stable. Platelets are stable at 78. Chest x-ray still showing pulmonary edema Review of systems CONSTITUTIONAL: No fever, no malaise, no fatigue. HEENT: No recent visual problems or hearing problems. Denied any sore throat. CARDIOVASCULAR: No orthopnea, PND, no palpitations, no syncope. PULMONARY: no hemoptysis. GASTROINTESTINAL: No diarrhea, no nausea, no vomiting, no abdominal pain. No rmoactive bowel sounds. NEUROLOGICAL: No headaches, no weakness, no numbness. HEMATOLOGICAL: Denies any bleeding or petechiae. GENITOURINARY: Denies any burning micturition, frequency, or urgency. MUSCULOSKELETAL/RHEUMATOLOGICAL: Denies any joint pain, swelling, or any muscle pain. ENDOCRINE: Denies any polyuria or polydipsia. Active Medications Generic Name Dose Route Start Last Admin Trade Name Freq PRN Reason Stop Dose Admin Albuterol Sulfate 2.5 mg 05/24/19 15:54 05/27/19 09:35 Ventolin Nebulized INHALATION 2.5 mg RT-Q4H PRN Administration Shortness Of Breath Alprazolam 0.25 mg 05/24/19 15:56 Xanax PO TID PRN Anxiety Amiodarone HCl 200 mg 05/26/19 09:15 05/27/19 09:11 Cordarone PO 200 mg DAILY MALCOM Administration Fluticasone Propionate 1 spray 05/25/19 09:00 05/27/19 09:12 Flonase Nasal [place] EA NOSTRIL 1 spray DAILY MALCOM Administration Gabapentin 600 mg 05/24/19 21:00 05/26/19 20:39 Neurontin PO 600 mg HS MALCOM Administration Norepinephrine Bitartrate 32 250 mls @ 3.083 mls/hr 05/24/19 13:30 05/26/19 14:23 mg/ Sodium Chloride IV Not Given .Q24H MALCOM Protocol 0.05 MCG/KG/MIN Sodium Chloride 1,000 mls @ 20 mls/hr 05/24/19 14:00 05/26/19 14:23 Saline 0.9% IV Not Given .Q24H MALCOM Piperacillin Sod/Tazobactam 100 mls @ 25 mls/hr 05/24/19 21:00 05/27/19 09:12 Sod 3.375 gm/ Sodium Chloride IVPB 25 mls/hr Q12HR MALCOM Administration Metoprolol Tartrate 25 mg 05/27/19 09:00 05/27/19 09:11 Lopressor PO 25 mg BID MALCOM Administration Miscellaneous Information 1 each 05/25/19 06:36 Potassium Per Protocol MISCELLANE DAILY PRN Per Protocol Protocol Miscellaneous Information 1 each 05/26/19 05:59 Potassium Per Protocol MISCELLANE DAILY PRN Per Protocol Protocol Naloxone HCl 0.2 mg 05/24/19 13:56 Narcan IV Q2M PRN Opioid Reversal Nystatin 500,000 unit 05/25/19 18:00 05/27/19 09:13 Mycostatin Oral Susp PO 500,000 unit QID MALCOM Administration Pantoprazole Sodium 40 mg 05/24/19 14:00 05/27/19 09:11 Protonix IV 40 mg BID MALCOM Administration Sucralfate 1 gm 05/24/19 17:30 05/27/19 07:33 Carafate PO Not Given ACHS MALCOM Objective - Vital Signs Vital signs: Vital Signs Temp 98.8 F 05/27/19 08:00 Pulse 112 H 05/27/19 09:37 Resp 22 05/27/19 09:00 BP 107/57 05/27/19 09:00 Pulse Ox 98 05/27/19 09:00 Intake & Output 05/26/19 05/27/19 05/27/19 18:59 06:59 18:59 Intake Total 920 310 30 Output Total 2525 25 15 Balance -1605 285 15 Weight 132 kg Intake: IV 210 210 30 NS 110 110 30 Piperacillin-Tazobactam 3 100 100 .375 gm In Sodium Chloride 0.9% 100 ml @ 25 mls/hr IVPB Q12HR [facility] Rx #:[id number] Oral 100 100 Blood Product 610 Rc As-1 Unit 310 [id number] Output: Urine 25 25 15 Hemodialysis 2500 Other: Voiding Method Indwelling Catheter Indwelling Catheter - Exam GENERAL: The patient is alert and oriented x3, not in any acute distress. Obese HEENT: Pupils are round and equally reacting to light. EOMI. No scleral icterus. No conjunctival pallor. Normocephalic, atraumatic. No pharyngeal erythema. No thyromegaly. CARDIOVASCULAR: S1 and S2 present. No murmurs, rubs, or gallops. -PULMONARY: Chest is clear to auscultation, bilateral basal crepitation ABDOMEN: Soft, nontender, nondistended, normoactive bowel sounds. No palpable organomegaly. MUSCULOSKELETAL: No joint swelling or deformity. EXTREMITIES: No cyanosis, clubbing, or pedal edema. NEUROLOGICAL: Gross neurological examination did not reveal any focal deficits. SKIN: No rashes. No petechiae - Labs CBC & Chem 7: 05/27/19 07:27 05/27/19 07:27 Labs: Abnormal Lab Results - Last 24 Hours (Table) 05/25/19 05/26/19 05/26/19 Range/Units 07:15 05:00 10:41 RBC (3.80-5.40) m/uL Hgb (11.4-16.0) gm/dL Hct (34.0-46.0) % MCV (80.0-100.0) fL RDW (11.5-15.5) % Plt Count (150-450) k/uL Lymphocytes # (1.0-4.8) k/uL Macrocytosis Sodium (137-145) mmol/L BUN (7-17) mg/dL Creatinine (0.52-1.04) mg/dL Calcium (8.4-10.2) mg/dL Iron 28 L (50-170) ug/dL TIBC 213 L (228-460) ug/dL Ferritin 1168.5 H (10.0-291.0) ng/mL Lactate Dehydrogenase 4156 H (313-618) U/L PTH Intact 213.4 H (14.0-72.0) pg/mL 05/26/19 05/27/19 05/27/19 Range/Units 18:00 07:27 07:27 RBC 2.44 L 2.51 L (3.80-5.40) m/uL Hgb 8.3 L D 8.4 L (11.4-16.0) gm/dL Hct 24.3 L 25.6 L (34.0-46.0) % MCV 102.2 H (80.0-100.0) fL RDW 21.8 H 21.9 H (11.5-15.5) % Plt Count 75 L 78 L (150-450) k/uL Lymphocytes # 0.2 L (1.0-4.8) k/uL Macrocytosis Marked A Sodium 135 L (137-145) mmol/L BUN 23 H (7-17) mg/dL Creatinine 4.20 H (0.52-1.04) mg/dL Calcium 7.1 L (8.4-10.2) mg/dL Iron (50-170) ug/dL TIBC (228-460) ug/dL Ferritin (10.0-291.0) ng/mL Lactate Dehydrogenase (313-618) U/L PTH Intact (14.0-72.0) pg/mL Microbiology - Last 24 Hours (Table) 05/24/19 13:38 Urine Culture - Final Urine,Catheterized Mary albicans 05/24/19 13:39 Blood Culture - Preliminary Blood No Growth after 48 hours Assessment and Plan Assessment: Pulmonary edema, secondary to acute renal failure needing hemodialysis Acute GI bleed Acute blood loss anemia Acute urinary tract infection Hypotension secondary to above, Possible combined septic and hemorrhagic shock. Improved, Off pressors currently recent pneumonia and respiratory failure End-stage renal disease on dialysis, patient was started on dialysis last a dmission at [facility] Atrial fibrillation Hypertension Hyperlipidemia CVA/TIA, with left hemiparesis Thrombocytopenia History of left breast cancer in 1997, status post breast surgery, metastatic to the spine and liver Plan: This is a pleasant 64 years old female who presents with GI bleed and hypotension with picture of shock. Central line placement, transfuse blood as needed to keep hemoglobin above 7. Monitor vitals and hemoglobin. Continue with Protonix IV. we Appreciate critical care team and GI team and follow the recommendation. Nephrology consult is appreciated, planned for hemodialysis. Continue with Zosyn. Cardiology on the case however patient is off anticoagulation for her acute GI bleed. Labs and medication were reviewed.. Continue same treatment. Continue with symptomatic treatment. Resume home medication. Monitor lytes and vitals. DVT and GI prophylaxis. Further recommendations of the clinical course of the patient DVT prophylaxis: No heparin and review of GI bleed GI Prophylaxis: Protonix Prognosis is guarded
[2019-05-27] MEDS: GABAPENTIN 300 MG CAP PO SCH ×2 (10:55→20:23)
--- NOTE | 2019-05-27 11:13 | PN ---
PROGRESS NOTE Mrs. Lopez is a 64-year-old lady with history of metastatic breast cancer who had a recent prolonged hospital stay also has paroxysmal atrial fibrillation, but she is actually in sinus rhythm today. Heart rate is about 110 per minute. She is off Levophed drip. She is resting comfortably. However, she still has wheezes and is using high-flow oxygen at this time. She sees Dr. Rodriguez a [facility] in the [place] area. I am recommending that we will add a small dose of metoprolol 25 mg b.i.d. and see how she does. Her blood pressure is stable today. Vitals are stable. JVD is 1 cm. No carotid bruit. S1, S2 heard normally. Rhythm is regular. Short systolic murmur at the base is audible. Lungs reveal scattered rhonchi with diminished air entry. Abdomen and lower extremity exam is unchanged. I will add a small dose of beta linda and continue amiodarone and see how she does. MMODL / IJN: [id number] /
[2019-05-27] MEDS: methylPREDNISolone SOD SUCCI 40 MG/ML 1 ML VIAL IV SCH ×3 (11:25→23:31)
[2019-05-27] MEDS: NOREPINEPHRINE 32 MG in SODIUM CHLORIDE 0.9% 218 ML IV SCH (11:26)
[2019-05-27] MEDS: SENNOSIDES-DOCUSATE SODIUM 1 EACH TAB PO SCH (12:09)
[2019-05-27 14:07] LABS: Haptoglobin 14.3 mg/dL (31.2-198.0)
--- NOTE | 2019-05-27 14:40 | P.PN ---
Subjective Progress Note Date: 05/27/19 Principal diagnosis: Acute GI bleeding This is a 64-year-old female patient got transferred from [facility] for GI bleed and hypotension. The patient is well-known to us. In fact she was recently discharged from the hospital after being treated with a combination of medical problems including shortness of breath, sepsis, renal failure and during the course of the treatment the patient developed an acute kidney injury/ATN and she became dialysis dependent. She was undergoing dialysis on a periodic basis. She was infected with staph in the blood and enterococcus in the urine and ultimately she was stabilized and discharged. Note that the patient has metastatic breast cancer and she has also skeletal metastases from breast cancer primary. She has CVA pneumonia left-sided the body, paroxysmal atrial fibrillation and hyperlipidemia. Primary oncologist Dr. Wheat. She has known metastatic Breast Cancer. Most recently progression in spiny bone and status post radiation. Since radiation increased dysphagia, secretion, and pain. Increased Shortness of breath and chills. She has open burn from radiation. During the earlier presentation, the patient had pancytopenia related to treatment and the patient has been off treatment since. The patient has a combi nation of systolic and diastolic heart failure. She has moderate concentric LVH/hypertensive heart disease with a LV function of 45% and moderate degree of aortic sclerosis and moderate to severe aortic regurgitation and severe aortic stenosis also present on the echocardiogram that was done a few months back. She has a peak gradient across the valve of 76 mmHg and the patient also has secondary pulmonary hypertension with a right posterior systolic pressure estimated to be 73. During this current admission, hemoglobin was at 6.9. Stool for occult blood was positive. The patient presented with a BP of 77/52 and her hemoglobin was at 7.0. The patient was hypotensive and the triple-lumen catheter was established in the emergency department. The patient was started on IV fluids. The patient got transferred to the intensive care unit for further care.The chest x-ray showing acute pulmonary edema. She is currently on 4liters by nasal cannula and her pulse ox is ranging between 90-95%. Head there is a Hunter catheter in place and the patient has dark brownish chocolatey looking cloudy urine output. The patient is currently receiving a packed cell transfusion. She is also on norepinephrine infusion at 0.1 mcg/kg per minute. She is awake and alert. She states that during the last 2 sessions of hemodialysis, she became quite ill and she developed hypotension and it had to b e discontinued at the end. Her last hemodialysis session was on Sunday. Currently she is afebrile. Mental status is within normal limits. She is following commands and has secretions appropriately. No focal neurological deficits. Some trace edema in lower extremities bilaterally. On 05/25/2019 I'm seeing this patient for a follow-up. Not the patient is awake and alert and she is following commands and answering questions appropriately. She became slightly more hypoxic compared to yesterday and the patient was placed on 15 L of oxygen by nasal cannula and her pulse ox is ranging between 90-94%. Her chest x-ray still showing acute pulmonary edema. Meanwhile, the patient is still being cheered for an underlying hypotension/sepsis. She received a unit of packed RBC for suspected GI bleed. Hemoglobin today stable and as above 7, specifically at 7.2 and stable. The patient was suspected to have underlying UTI and sepsis. Urine culture sent. Blood cultures sent. She is currently on IV Zosyn. She is receiving pressors and levo fed has been weaned down considerably compared to yesterday. No evidence of any external GI bleeding. No evidence of any altered mentation. No headaches. Creatinine is at 4.2 and the BUN is 32. Her last hemodialysis session was Sunday the patient was unable to complete a full dialysis session because of hemodynamic instability. She is currently on norepinephrine infusion at 0.06 units per kilograms per minute. Potassium needs to be replaced. The fives on the case. Reevaluated today on 05/26/2019, patient remains in the ICU, she is off norepinephrine, no active GI bleeding at present, however the patient received a total of 2 units of packed RBCs since admission. Her hemoglobin this morning was 6.3, and she is in the process of receiving her second unit of packed RBCs. She was seen by gastroenterology on consultation, and I recommended conservative measures, advised that we continue broad-spectrum antibiotics for her urosepsis, and to monitor CBC on a daily basis, no plans for endoscopic intervention at this time. Seen by nephrology, and the patient is to continue hemodialysis. She does have clearly evidence of volume overload, hypertension and chronic kidney disease as well as acute blood loss anemia with hypocalcemia and hypoalbuminemia. Seen by cardiology, I recommended that we continue amiodarone, continue to hold the beta blockers also recommended cutting down amiodarone to 200 mg daily. And continue hemodialysis for her fluid overload. Today's chest x-ray was reviewed all labs were reviewed and hemoglobin again is 6.3 this morning. Electrolytes showed a low potassium of 3.1 being corrected as per p rotocol. Patient is presently off norepinephrine. Remains on antibiotics for her urosepsis. She remains on Zosyn. Urine culture is pending, blood culture is negative so far. Patient was seen today on 05/27/2019, remains in the ICU, and she was on non- rebreather mask, however I plan to switch the patient to high flow nasal cannula or possibly airvo O2 saturation remains marginal. Patient is feeling better clinically, continues to have dialysis, chest x-ray continues to show evidence of pulmonary edema. Patient remains short of breath with any activity. WBC count is 6.5 hemoglobin is 8.4 today. Received a total of 2 units of packed RBCs since admission. Patient is scheduled for dialysis today. She is off levo fed, remains on Zosyn and nystatin. Remains off anticoagulation therapy although she is in atrial fibrillation. Chest x-ray again shows evidence of pulmonary edema. Objective - Vital Signs Vital signs: Vital Signs Temp 98.3 F 05/27/19 12:00 Pulse 93 05/27/19 13:00 Resp 21 05/27/19 13:00 BP 135/83 05/27/19 13:00 Pulse Ox 96 05/27/19 13:00 Intake & Output 05/26/19 05/27/19 05/27/19 18:59 06:59 18:59 Intake Total 920 310 160 Output Total 2525 25 30 Balance -1605 285 130 Weight 132 kg 132 kg Intake: IV 210 210 160 NS 110 110 60 Piperacillin-Tazobactam 3 100 100 100 .375 gm In Sodium Chloride 0.9% 100 ml @ 25 mls/hr IVPB Q12HR [facility] Rx #:[id number] Oral 100 100 Blood Product 610 Rc As-1 Unit 310 [id number] Output: Urine 25 25 30 Hemodialysis 2500 Other: Voiding Method Indwelling Catheter Indwelling Catheter Indwelling Catheter - Exam Physical Exam: Revealed 64-year-old female, on nonrebreather mask and high flow nasal cannula. Head: Atraumatic, normocephalic. HEENT:[Neck is supple.] [No neck masses.] [No thyromegaly.] [No JVD.] PERRLA, EOMI, no icterus. Chest: Crackles and rhonchi noted bilaterally. Symmetrical chest expansion.] Cardiac Exam: Irregular irregular rhythm. [Normal S1 and S2, no S3 gallop, no murmur.] Abdomen: [Obese, Soft, nontender, no megaly, no rebound, no guarding, normal bowel sounds.] Extremities: [No clubbing, 1+ bipedal edema, no cyanosis.] Good pulses bilaterally. Neurological Exam: [No focal neurologic deficit.] Alert oriented 3. Psychiatric: Normal mood, affect and normal mental status examination. Skin: No rashes. - Labs CBC & Chem 7: 05/27/19 07:27 05/27/19 07:27 Labs: Abnormal Lab Results - Last 24 Hours (Table) 05/26/19 05/26/19 05/27/19 Range/Units 10:41 18:00 07:27 RBC 2.44 L 2.51 L (3.80-5.40) m/uL Hgb 8.3 L D 8.4 L (11.4-16.0) gm/dL Hct 24.3 L 25.6 L (34.0-46.0) % MCV 102.2 H (80.0-100.0) fL RDW 21.8 H 21.9 H (11.5-15.5) % Plt Count 75 L 78 L (150-450) k/uL Lymphocytes # 0.2 L (1.0-4.8) k/uL Macrocytosis Marked A Haptoglobin 14.3 L (31.2-198.0) mg/dL Sodium (137-145) mmol/L BUN (7-17) mg/dL Creatinine (0.52-1.04) mg/dL Calcium (8.4-10.2) mg/dL 05/27/19 Range/Units 07:27 RBC (3.80-5.40) m/uL Hgb (11.4-16.0) gm/dL Hct (34.0-46.0) % MCV (80.0-100.0) fL RDW (11.5-15.5) % Plt Count (150-450) k/uL Lymphocytes # (1.0-4.8) k/uL Macrocytosis Haptoglobin (31.2-198.0) mg/dL Sodium 135 L (137-145) mmol/L BUN 23 H (7-17) mg/dL Creatinine 4.20 H (0.52-1.04) mg/dL Calcium 7.1 L (8.4-10.2) mg/dL Microbiology - Last 24 Hours (Table) 05/24/19 13:38 Urine Culture - Final Urine,Catheterized Mary albicans 05/24/19 13:39 Blood Culture - Preliminary Blood No Growth after 48 hours Assessment and Plan Assessment: Impression: 1 hypotension, multifactorial, as noted on previous notes. 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 Which is a combination of aortic valve disease and GI bleeding. 3 suspect urosepsis 4 GI bleeding exact etiology is not clear but could be as noted above. 5 severe aortic stenosis and aortic regurgitation 6 acute on chronic pulmonary edema and history of LV dysfunction/systolic in nature. 7 end-stage renal disease, on hemodialysis 8 obesity BMI of 49.8 9 history of CVA and left-sided weakness 10 metastatic breast cancer treated by chemotherapy and radiation therapy for her skeletal metastasis 11 hyperlipidemia Recommendation: Continue Zosyn, Continue hemodialysis. Continue bronchodilators. Added Solu-Medrol today because the patient responded well to steroids on her previous admission. Continue to monitor hemoglobin, continue Protonix, patient is being followed by gastroenterology, no plans for endoscopy at this point. We will continue to monitor the patient in the ICU, and if I co uld discontinue the nonrebreather mask, then I will transfer the patient to a cardiac floor. Time with Patient: Less than 30
--- NOTE | 2019-05-27 15:52 | P.PN ---
Subjective Progress Note Date: 05/27/19 Principal diagnosis: Metastatic Breast Cancer Non-rebreather complains of increased nerve pain Objective - Vital Signs Vital signs: Vital Signs Temp 98.3 F 05/27/19 12:00 Pulse 96 05/27/19 15:00 Resp 24 05/27/19 15:00 BP 121/73 05/27/19 15:00 Pulse Ox 94 L 05/27/19 15:00 Intake & Output 05/26/19 05/27/19 05/27/19 18:59 06:59 18:59 Intake Total 920 310 180 Output Total 2525 25 40 Balance -1605 285 140 Weight 132 kg 132 kg Intake: IV 210 210 180 NS 110 110 80 Piperacillin-Tazobactam 3 100 100 100 .375 gm In Sodium Chloride 0.9% 100 ml @ 25 mls/hr IVPB Q12HR [facility] Rx #:[id number] Oral 100 100 Blood Product 610 Rc As-1 Unit 310 [id number] Output: Urine 25 25 40 Hemodialysis 2500 Other: Voiding Method Indwelling Catheter Indwelling Catheter Indwelling Catheter - Exam Head: Normocytic, Atraumatic Neck: Supple Mouth: No Lesions, No Thrush Eyes: Non-sclerotic No Palpable cervical, supraclavicular, axillary adenopathy Heart: irregular Lungs: Diminished, increased effort non-rebreather Abdomen: Soft, Non-Distended, Non-Tended, BSx4 Extremities: No Edema, Equal Strength Neurological: No Focal Defects: - Labs CBC & Chem 7: 05/27/19 07:27 05/27/19 07:27 Labs: Abnormal Lab Results - Last 24 Hours (Table) 05/26/19 05/26/19 05/27/19 Range/Units 10:41 18:00 07:27 RBC 2.44 L 2.51 L (3.80-5.40) m/uL Hgb 8.3 L D 8.4 L (11.4-16.0) gm/dL Hct 24.3 L 25.6 L (34.0-46.0) % MCV 102.2 H (80.0-100.0) fL RDW 21.8 H 21.9 H (11.5-15.5) % Plt Count 75 L 78 L (150-450) k/uL Lymphocytes # 0.2 L (1.0-4.8) k/uL Macrocytosis Marked A Haptoglobin 14.3 L (31.2-198.0) mg/dL Sodium (137-145) mmol/L BUN (7-17) mg/dL Creatinine (0.52-1.04) mg/dL Calcium (8.4-10.2) mg/dL 05/27/19 Range/Units 07:27 RBC (3.80-5.40) m/uL Hgb (11.4-16.0) gm/dL Hct (34.0-46.0) % MCV (80.0-100.0) fL RDW (11.5-15.5) % Plt Count (150-450) k/uL Lymphocytes # (1.0-4.8) k/uL Macrocytosis Haptoglobin (31.2-198.0) mg/dL Sodium 135 L (137-145) mmol/L BUN 23 H (7-17) mg/dL Creatinine 4.20 H (0.52-1.04) mg/dL Calcium 7.1 L (8.4-10.2) mg/dL Microbiology - Last 24 Hours (Table) 05/24/19 13:38 Urine Culture - Final Urine,Catheterized Mary albicans 05/24/19 13:39 Blood Culture - Preliminary Blood No Growth after 48 hours Assessment and Plan Plan: Assessment and Plan Macrocytic Anemia: - Likely secondary to bleeding. Acute Blood Loss - Secondary to chemotherapy with ibrance and Radiation - Hold chemotherapy at this time - Overall levels Stable Acute Hypoxic Respiratory Failure: - Wearning non-rebreather - We discussed if the need for intubation arouse and she states she would like to be intubated, but not assisted, and only if reversible Thrombocytopenia: Acute Renal Insufficiency: - Dialysis per Nephrology Metastatic Breast cancer - Bone - ?Progression - Xgeva,Faslodex and Ibrance recently prescribed at progression - XRT to spine recently completed - Chemo and Medications on hold at this time until resolution of current issues Neoplastic Related Pain: - Continue current pain regimen - Add bowel protocol. - increase gabapentin Acute Respiratory failure: - In ICU Care - Pulmonary Following Atrial Fibrillation with RVR: - Cardiology Primary and ICU Care for all acute issues. Continue to hold cancer treatments until stabilizes I have completed the full history and physical of this patient and developed the complete impression and plan, Agree with Afia BARBOSA, dictated as a sccribe
--- NOTE | 2019-05-27 17:49 | PN ---
PROGRESS NOTE Patient is seen for followup for volume overload and acute dialysis-dependent renal failure. Patient was dialyzed today. She tolerated the treatment fairly well. Patient is not on any pressors. She is maintained on midodrine for hypotension. Hemoglobin was 6.3 yesterday. Patient has been transfused packed RBCs. No active bleeding noted at this time. Patient has been evaluated by GI. No plans for endoscopy at this point. We will maintain her on Aranesp as well. PHYSICAL EXAMINATION: This morning blood pressure was 122/59, heart rate 90 per minute. Patient is afebrile. EXAMINATION OF THE HEART: S1 and S2. EXAMINATION OF LUNGS: Decreased breath sounds at bases. ABDOMEN: Soft, morbidly obese. Examination of lower extremities shows edema 1+ bilaterally. GRINDER OPERATOR exam is grossly intact. LABS: Hemoglobin 8.4, white cell count 6.5, potassium 4.2, creatinine 4.2, iron saturation 13%. ASSESSMENT: 1. Acute kidney injury, currently hemodialysis-dependent. We will arrange for hemodialysis again in a.m., mainly for ultrafiltration. 2. Volume overload, slowly improving. 3. Hypotension associated with significant anemia. Patient was on midodrine on her last admission. She was on Levophed on initial admission, currently off of Levophed. 4. Anemia with no active bleeding noted. Significant iron deficiency is noted. I will start the patient on IV iron. She has been evaluated by GI with no plans for endoscopy at this point. 5. Volume overload, currently improving. PLAN: Add IV iron. Repeat hemodialysis in a.m. Increase UF as tolerated. Add Aranesp and repeat labs. MMODL / IJN: [id number] /
[2019-05-27] MEDS ORDERED: DARBEPOETIN ALFA 60 MCG/0.3 ML SYRINGE SQ SCH (18:00)
[2019-05-27] MEDS: SODIUM FERRIC GLUCONAT-SUCROSE 125 MG in SODIUM CHLORIDE 0.9% 100 ML IVPB SCH (18:04)
[2019-05-27] MEDS: SODIUM CHLORIDE 0.9% 1,000 ML IV SCH (18:04)
[2019-05-27] MEDS: MIDODRINE 5 MG TAB PO SCH ×2 (18:05→18:19)
[2019-05-27 18:36] LABS: Glucose,Whole Blood 161 mg/dL (75-99)
[2019-05-27 23:50] LABS: Glucose,Whole Blood 132 mg/dL (75-99)
[2019-05-28] MEDS: methylPREDNISolone SOD SUCCI 40 MG/ML 1 ML VIAL IV SCH ×4 (05:41→23:26)
[2019-05-28 06:21] LABS: Glucose,Whole Blood 135 mg/dL (75-99)
[2019-05-28 06:32] LABS: Albumin 2.4 g/dL (3.5-5.0); Bilirubin, Delta 0.7 mg/dL (0.0-0.2); Bilirubin,Unconjugated 0.4 mg/dL (0.0-1.1); Total Bilirubin 1.1 mg/dL (0.2-1.3); Total Protein 5.3 g/dL (6.3-8.2)
[2019-05-28] MEDS: SUCRALFATE 1 GM TAB PO SCH ×4 (06:51→20:18)
[2019-05-28] MEDS: MIDODRINE 5 MG TAB PO SCH ×2 (06:51→17:52)
--- NOTE | 2019-05-28 07:53 | XR ---
EXAMINATION TYPE: XR chest 1V DATE OF EXAM: 05/28/2019 CLINICAL HISTORY: Difficulty breathing progress study. TECHNIQUE: Single AP portable semiupright view of the chest is obtained. COMPARISON: Chest x-ray from one day earlier and older studies. FINDINGS: Stable right internal jugular central venous catheter. Stable mild cardiomegaly. Reticular interstitial changes bilaterally redemonstrated involving upper and lower lungs. No new focal airspa ce opacity, pleural effusion, or pneumothorax. Osseous structures are intact. IMPRESSION: Overall stable findings, suspect areas of interstitial edema and/or infiltrate on backg round chronic parenchymal fibrosis. No new focal infiltrate.
[2019-05-28] MEDS: GABAPENTIN 300 MG CAP PO SCH ×2 (08:31→20:17)
[2019-05-28] MEDS: CYANOCOBALAMIN 500 MCG TAB PO SCH (08:31)
[2019-05-28] MEDS: FLUTICASONE 50MCG/SPRAY NASAL 16GM EA NOSTRIL SCH (08:31)
[2019-05-28] MEDS: NYSTATIN 100,000 UNIT/ML SUSP 500,000 UNIT/5 ML CUP PO SCH ×4 (08:31→20:24)
[2019-05-28] MEDS: METOPROLOL TARTRATE 25 MG TAB PO SCH ×2 (08:31→20:18)
[2019-05-28] MEDS: AMIODARONE 200 MG TAB PO SCH (08:31)
[2019-05-28] MEDS: PANTOPRAZOLE 40 MG/10 ML VIAL IV SCH ×2 (08:32→20:18)
[2019-05-28] MEDS: SENNOSIDES-DOCUSATE SODIUM 1 EACH TAB PO SCH (08:32)
[2019-05-28] MEDS: PIPERACILLIN-TAZOBACTAM 3.375 GM in SODIUM CHLORIDE 0.9% 100 ML IVPB SCH ×2 (08:33→20:18)
[2019-05-28 08:55] LABS: Anisocytosis Moderate; Basophils % (A) 0 %; Eosinophils % (A) 0 %; HCT 26.5 % (34.0-46.0); HGB 8.7 gm/dL (11.4-16.0); Hypochromasia Moderate; Lymphocytes # (A) 0.2 k/uL (1.0-4.8); Lymphocytes % (A) 3 %; MCH 33.3 pg (25.0-35.0); MCHC 32.7 g/dL (31.0-37.0); MCV 101.9 fL (80.0-100.0); Macrocytosis Marked; Mean Platelet Volume 9.2; Monocytes # (A) 0.3 k/uL (0-1.0); Monocytes % (A) 4 %; Neutrophils # (A) 7.2 k/uL (1.3-7.7); Neutrophils % (A) 91 %; Platelet Count 95 k/uL (150-450); Poikilocytosis Slight; RDW 20.7 % (11.5-15.5); WBC 7.9 k/uL (3.8-10.6)
[2019-05-28 09:01] LABS: Calcium 6.9 mg/dL (8.4-10.2)
[2019-05-28] MEDS ORDERED: ALTEPLASE 2 MG VIAL (CATHFLO) IV STA ×3 (09:38→12:54)
[2019-05-28] MEDS: SODIUM FERRIC GLUCONAT-SUCROSE 125 MG in SODIUM CHLORIDE 0.9% 100 ML IVPB SCH (10:41)
[2019-05-28] MEDS: ALBUTEROL NEBULIZED 2.5 MG/3 ML INHALATION PRN ×3 (11:56→20:08)
[2019-05-28] MEDS: NOREPINEPHRINE 32 MG in SODIUM CHLORIDE 0.9% 218 ML IV SCH (11:59)
--- NOTE | 2019-05-28 12:06 | P.PN ---
Subjective Progress Note Date: 05/28/19 Principal diagnosis: Acute GI bleeding This is a 64-year-old female patient got transferred from [facility] for GI bleed and hypotension. The patient is well-known to us. In fact she was recently discharged from the hospital after being treated with a combination of medical problems including shortness of breath, sepsis, renal failure and during the course of the treatment the patient developed an acute kidney injury/ATN and she became dialysis dependent. She was undergoing dialysis on a periodic basis. She was infected with staph in the blood and enterococcus in the urine and ultimately she was stabilized and discharged. Note that the patient has metastatic breast cancer and she has also skeletal metastases from breast cancer primary. She has CVA pneumonia left-sided the body, paroxysmal atrial fibrillation and hyperlipidemia. Primary oncologist Dr. Wheat. She has known metastatic Breast Cancer. Most recently progression in spiny bone and status post radiation. Since radiation increased dysphagia, secretion, and pain. Increased Shortness of breath and chills. She has open burn from radiation. During the earlier presentation, the patient had pancytopenia related to treatment and the patient has been off treatment since. The patient has a combi nation of systolic and diastolic heart failure. She has moderate concentric LVH/hypertensive heart disease with a LV function of 45% and moderate degree of aortic sclerosis and moderate to severe aortic regurgitation and severe aortic stenosis also present on the echocardiogram that was done a few months back. She has a peak gradient across the valve of 76 mmHg and the patient also has secondary pulmonary hypertension with a right posterior systolic pressure estimated to be 73. During this current admission, hemoglobin was at 6.9. Stool for occult blood was positive. The patient presented with a BP of 77/52 and her hemoglobin was at 7.0. The patient was hypotensive and the triple-lumen catheter was established in the emergency department. The patient was started on IV fluids. The patient got transferred to the intensive care unit for further care.The chest x-ray showing acute pulmonary edema. She is currently on 4liters by nasal cannula and her pulse ox is ranging between 90-95%. Head there is a Hunter catheter in place and the patient has dark brownish chocolatey looking cloudy urine output. The patient is currently receiving a packed cell transfusion. She is also on norepinephrine infusion at 0.1 mcg/kg per minute. She is awake and alert. She states that during the last 2 sessions of hemodialysis, she became quite ill and she developed hypotension and it had to b e discontinued at the end. Her last hemodialysis session was on Sunday. Currently she is afebrile. Mental status is within normal limits. She is following commands and has secretions appropriately. No focal neurological deficits. Some trace edema in lower extremities bilaterally. On 05/25/2019 I'm seeing this patient for a follow-up. Not the patient is awake and alert and she is following commands and answering questions appropriately. She became slightly more hypoxic compared to yesterday and the patient was placed on 15 L of oxygen by nasal cannula and her pulse ox is ranging between 90-94%. Her chest x-ray still showing acute pulmonary edema. Meanwhile, the patient is still being cheered for an underlying hypotension/sepsis. She received a unit of packed RBC for suspected GI bleed. Hemoglobin today stable and as above 7, specifically at 7.2 and stable. The patient was suspected to have underlying UTI and sepsis. Urine culture sent. Blood cultures sent. She is currently on IV Zosyn. She is receiving pressors and levo fed has been weaned down considerably compared to yesterday. No evidence of any external GI bleeding. No evidence of any altered mentation. No headaches. Creatinine is at 4.2 and the BUN is 32. Her last hemodialysis session was Sunday the patient was unable to complete a full dialysis session because of hemodynamic instability. She is currently on norepinephrine infusion at 0.06 units per kilograms per minute. Potassium needs to be replaced. The fives on the case. Reevaluated today on 05/26/2019, patient remains in the ICU, she is off norepinephrine, no active GI bleeding at present, however the patient received a total of 2 units of packed RBCs since admission. Her hemoglobin this morning was 6.3, and she is in the process of receiving her second unit of packed RBCs. She was seen by gastroenterology on consultation, and I recommended conservative measures, advised that we continue broad-spectrum antibiotics for her urosepsis, and to monitor CBC on a daily basis, no plans for endoscopic intervention at this time. Seen by nephrology, and the patient is to continue hemodialysis. She does have clearly evidence of volume overload, hypertension and chronic kidney disease as well as acute blood loss anemia with hypocalcemia and hypoalbuminemia. Seen by cardiology, I recommended that we continue amiodarone, continue to hold the beta blockers also recommended cutting down amiodarone to 200 mg daily. And continue hemodialysis for her fluid overload. Today's chest x-ray was reviewed all labs were reviewed and hemoglobin again is 6.3 this morning. Electrolytes showed a low potassium of 3.1 being corrected as per p rotocol. Patient is presently off norepinephrine. Remains on antibiotics for her urosepsis. She remains on Zosyn. Urine culture is pending, blood culture is negative so far. Patient was seen today on 05/27/2019, remains in the ICU, and she was on non- rebreather mask, however I plan to switch the patient to high flow nasal cannula or possibly airvo O2 saturation remains marginal. Patient is feeling better clinically, continues to have dialysis, chest x-ray continues to show evidence of pulmonary edema. Patient remains short of breath with any activity. WBC count is 6.5 hemoglobin is 8.4 today. Received a total of 2 units of packed RBCs since admission. Patient is scheduled for dialysis today. She is off levo fed, remains on Zosyn and nystatin. Remains off anticoagulation therapy although she is in atrial fibrillation. Chest x-ray again shows evidence of pulmonary edema. Reevaluated today on 05/28/2019, remains in the ICU, presently on airvo at 95% FiO2, and high flow. Patient's O2 saturation is marginal, chest x-ray continues to show evidence of interstitial edema. Patient is to undergo hemodialysis again today and ultrafiltration. No major ticket dispenser changer the last few days, patient will be receiving hemodialysis on a daily basis for the next few days. Chest x-ray again continues to show interstitial edema. And questionable underlying infiltrates. WBC count is 7.9 hemoglobin 8.7 and a close are normal BUN is 44 creatinine 5.69. Objective - Vital Signs Vital signs: Vital Signs Temp 97.5 F L 05/28/19 08:00 Pulse 73 05/28/19 11:00 Resp 20 05/28/19 11:00 BP 119/51 05/28/19 11:00 Pulse Ox 95 05/28/19 11:00 Intake & Output 05/27/19 05/28/19 05/28/19 18:59 06:59 18:59 Intake Total 310 220 220 Output Total 53 10 26 Balance 257 210 194 Weight 132 kg 129.8 kg Intake: IV 310 220 220 NS 110 120 20 Piperacillin-Tazobactam 3 100 100 100 .375 gm In Sodium Chloride 0.9% 100 ml @ 25 mls/hr IVPB Q12HR [facility] Rx #:[id number] Sodium Ferric Gluconat- 100 100 Sucrose 125 mg In Sodium Chloride 0.9% 100 ml @ 100 mls/hr IVPB DAILY [facility] Rx#:[id number] Output: Urine 53 10 26 Other: Voiding Method Indwelling Catheter Indwelling Catheter Indwelling Catheter # Bowel Movements 1 1 - Exam Physical Exam: Revealed 64-year-old female, on airvo, high FiO2 and high flow Head: Atraumatic, normocephalic. HEENT:[Neck is supple.] [No neck masses.] [No thyromegaly.] [No JVD.] PERRLA, EOMI, no icterus. Chest: Crackles and rhonchi noted bilaterally. Some wheezing on forced expiratory maneuver noted. Symmetrical chest expansion.] Cardiac Exam: Irregular irregular rhythm. [Normal S1 and S2, no S3 gallop, no murmur.] Abdomen: [Obese, Soft, nontender, no megaly, no rebound, no guarding, normal bowel sounds.] Extremities: [No clubbing, 1+ bipedal edema, no cyanosis.] Good pulses bilaterally. Neurological Exam: [No focal neurologic deficit.] Alert oriented 3. Psychiatric: Normal mood, affect and normal mental status examination. Skin: No rashes. - Labs CBC & Chem 7: 05/28/19 08:18 05/28/19 08:18 Labs: Abnormal Lab Results - Last 24 Hours (Table) 05/26/19 05/27/19 05/27/19 Range/Units 10:41 18:24 23:39 RBC (3.80-5.40) m/uL Hgb (11.4-16.0) gm/dL Hct (34.0-46.0) % MCV (80.0-100.0) fL RDW (11.5-15.5) % Plt Count (150-450) k/uL Lymphocytes # (1.0-4.8) k/uL Macrocytosis Haptoglobin 14.3 L (31.2-198.0) mg/dL Sodium (137-145) mmol/L Carbon Dioxide (22-30) mmol/L BUN (7-17) mg/dL Creatinine (0.52-1.04) mg/dL Glucose (74-99) mg/dL POC Glucose (mg/dL) 161 H 132 H (75-99) mg/dL Calcium (8.4-10.2) mg/dL Delta Bilirubin (0.0-0.2) mg/dL AST (14-36) U/L Alkaline Phosphatase (38-126) U/L Total Protein (6.3-8.2) g/dL Albumin (3.5-5.0) g/dL 05/28/19 05/28/19 05/28/19 Range/Units 04:52 06:09 08:18 RBC 2.60 L (3.80-5.40) m/uL Hgb 8.7 L (11.4-16.0) gm/dL Hct 26.5 L (34.0-46.0) % MCV 101.9 H (80.0-100.0) fL RDW 20.7 H (11.5-15.5) % Plt Count 95 L (150-450) k/uL Lymphocytes # 0.2 L (1.0-4.8) k/uL Macrocytosis Marked A Haptoglobin (31.2-198.0) mg/dL Sodium (137-145) mmol/L Carbon Dioxide (22-30) mmol/L BUN (7-17) mg/dL Creatinine (0.52-1.04) mg/dL Glucose (74-99) mg/dL POC Glucose (mg/dL) 135 H (75-99) mg/dL Calcium (8.4-10.2) mg/dL Delta Bilirubin 0.7 H (0.0-0.2) mg/dL AST 69 H (14-36) U/L Alkaline Phosphatase 153 H (38-126) U/L Total Protein 5.3 L (6.3-8.2) g/dL Albumin 2.4 L (3.5-5.0) g/dL 05/28/19 Range/Units 08:18 RBC (3.80-5.40) m/uL Hgb (11.4-16.0) gm/dL Hct (34.0-46.0) % MCV (80.0-100.0) fL RDW (11.5-15.5) % Plt Count (150-450) k/uL Lymphocytes # (1.0-4.8) k/uL Macrocytosis Haptoglobin (31.2-198.0) mg/dL Sodium 135 L (137-145) mmol/L Carbon Dioxide 21 L (22-30) mmol/L BUN 44 H (7-17) mg/dL Creatinine 5.69 H (0.52-1.04) mg/dL Glucose 113 H (74-99) mg/dL POC Glucose (mg/dL) (75-99) mg/dL Calcium 6.9 L (8.4-10.2) mg/dL Delta Bilirubin (0.0-0.2) mg/dL AST (14-36) U/L Alkaline Phosphatase (38-126) U/L Total Protein (6.3-8.2) g/dL Albumin (3.5-5.0) g/dL Microbiology - Last 24 Hours (Table) 05/24/19 13:39 Blood Culture - Preliminary Blood No Growth after 72 hours Assessment and Plan Assessment: Impression: 1 hypotension, multifactorial, as noted on previous notes. 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 Which is a combination of aortic valve disease and GI bleeding. 3 suspect urosepsis, urine is positive for Mary 4 GI bleeding exact etiology is not clear but could be as noted above. 5 severe aortic stenosis and aortic regurgitation 6 acute on chronic pulmonary edema and history of LV dysfunction/systolic in nature. 7 end-stage renal disease, on hemodialysis 8 obesity BMI of 49.8 9 history of CVA and left-sided weakness 10 metastatic breast cancer treated by chemotherapy and radiation therapy for her skeletal metastasis 11 hyperlipidemia 12 acute candiduria with urinary tract infection secondary to mary, will consult infectious disease to evaluate, I was planning to consider Diflucan, however the patient is on amiodarone. We will let infectious disease decide on treatment of her candiduria. Recommendation: Continue to monitor the patient in ICU. Continue antibiotics, patient may have to be placed on antifungal therapy for her candiduria. Infectious disease consultation was initiated. Continue hemodialysis. Continue bronchodilators. Continue Solu-Medrol. Continue GI and DVT prophylaxis. Continue to monitor labs on a daily basis including CBC and basic metabolic profile. Continue patient on high flow oxygen, Patient may end up requiring intubation and mechanical ventilation, and she is very well aware of this. CODE STATUS remains full at this point. Time with Patient: Less than 30
[2019-05-28 12:19] LABS: Glucose,Whole Blood 105 mg/dL (75-99)
[2019-05-28] MEDS: SODIUM CHLORIDE 0.9% 1,000 ML IV SCH (12:42)
--- NOTE | 2019-05-28 15:09 | P.PN ---
Subjective This is a pleasant 64 years old female with past medical history of hyperlipidemia, hypertension, CVA/TIA, metastatic left breast cancer in 1998 and the spine cancer in 2018, mostly its metastasis from her breast cancer, end- stage renal disease on dialysis, atrial fibrillation with RVR, she was recently discharged from the hospital for recent pneumonia and respiratory failure Patient was transferred from [facility] for GI hemorrhage and hypotension. At the [facility] she was confused and patient was found to be hypotensive and hypoxic with oxygen saturations at 78%, on her way to the hospital patient started waking up with supplemental oxygen. At first patient was sent to [facility] before she was transferred to the current hospital [facility] labs reviewed, it looks like BMP and liver enzymes were unremarkable, hemoglobin was 6.9, occult blood in the stools positive, urinalysis showing doubly BC of 30-50 with positive nitrite. EKG showing normal sinus rhythm at [address]-T changes with QTC 498 Patient blood pressure was hypotensive with 77/52, she's been afebrile. Labs show hemoglobin 7 with hematocrit of 20.5, wBC 8.1K and platelet count 76k. Sodium 131, creatinine 3.5, liver enzymes mildly elevated at 79 and 58. INR is 1.1. Urine analysis is indicating for infection Patient is getting 1 unit of blood transfusion 05/25/2019 Patient resting comfortably in bed, she remains in the ICU currently. No chest pain or dyspnea. Patient with no nausea vomiting, she is passing gas but no bowel movement, no abdominal pain, she is on clear diet and wants to be advanced to soft area at she still have Hunter catheter with light brown urine, less turbid than yesterday. Hemoglobin stable at 7.2, WBC is 10.3 K, sodium 133 is stable. Creatinine went up to 4.2 slight improvement. Municipal Clerk evaluated the patient and recommended hemodialysis today,. Pulmonary/critical care team is still following the patient closely 05/26/2019 Patient is seen in the ICU, patient is on soft diet with no nausea vomiting or abdominal pain. Patient has no bowel movement yet. She underwent hemodialysis yesterday and her oxygen requirement is improved from 12 down to 6-7 L/m, she had right upper chest catheter, also Hunter catheter with light brown urine is improving with antibiotics. Patient is still tachypneic with a breathing rate 24-30, her support vitals stable, and patient is afebrile. Her hemoglobin today dropped to 6.3 and she is getting 1 unit of blood transfusion, also patient is a scheduled to have hemodialysis today. Liver enzymes are slightly elevated. 05/27/2019 Patient is awake and alert, she is sitting up in bed, she is in respiratory distress on ventilation mask at 10 L oxygen via no debris that and she saturating 98%, she is slightly tachycardic 109-112, rest of vitals are unremar kable with blood pressure is 107/57, although it was lower this morning 90/56, patient is needing more oxygen requirement. She is in soft diet with no bowel movement since yesterday, however she is passing gas and tolerating her diet well. Left femoral and right upper chest catheters are intact and place. Hunter catheter would like to brown urine. Patient is planned for hemodialysis today. Municipal Clerk see him on the case. Diana's on Zosyn and nystatin for her urinary tract infection, she is off Levophed. She is off anticoagulation from her A. fib with history of stroke due to recent drop in hemoglobin down to 6.3 needed a blood transfusion her hemoglobin today is 8.4 which is a stable. Platelets are stable at 78. Chest x-ray still showing pulmonary edema 05/28/2019 Patient remains in the ICU, her respiratory status got worse compared to yesterday and she is needing more oxygen at high flow cannula with FiO2 of 85% and oxygen flow rate of 60. Patient is becoming high-risk for intubation however her blood pressure is stable. She has frequent bowel movements but there is no blood or dark-colored stool. No nausea vomiting. She underwent hemodialysis today and 3 L of fluids has been taken off. stable hemoglobin at 8.7, with platelets 90 5k,, sodium 135, repeat chest x-ray: Showing pulmonary congestion and edema. Urine culture is growing Mary. Patient remains on Zosyn and nystatin, she is also on Solu-Medrol. Review of systems CONSTITUTIONAL: No fever, no malaise, no fatigue. HEENT: No recent visual problems or hearing problems. Denied any sore throat. CARDIOVASCULAR: No orthopnea, PND, no palpitations, no syncope. PULMONARY: no hemoptysis. GASTROINTESTINAL: no nausea, no vomiting, no abdominal pain. Normoactive bowel sounds. NEUROLOGICAL: No headaches, no weakness, no numbness. HEMATOLOGICAL: Denies any bleeding or petechiae. GENITOURINARY: Denies any burning micturition, frequency, or urgency. MUSCULOSKELETAL/RHEUMATOLOGICAL: Denies any joint pain, swelling, or any muscle pain. ENDOCRINE: Denies any polyuria or polydipsia. A Active Medications Generic Name Dose Route Start Last Admin Trade Name Freq PRN Reason Stop Dose Admin Albuterol Sulfate 2.5 mg 05/24/19 15:54 05/28/19 11:56 Ventolin Nebulized INHALATION 2.5 mg RT-Q4H PRN Administration Shortness Of Breath Alprazolam 0.25 mg 05/24/19 15:56 Xanax PO TID PRN Anxiety Amiodarone HCl 200 mg 05/26/19 09:15 05/28/19 08:31 Cordarone PO 200 mg DAILY MALCOM Administration Cyanocobalamin 500 mcg 05/28/19 09:00 05/28/19 08:31 Vitamin B-12 PO 500 mcg DAILY MALCOM Administration Darbepoetin Doroteo 60 mcg 05/27/19 18:00 05/27/19 18:05 Aranesp SQ 60 mcg Q7D MALCOM Administration Fluticasone Propionate 1 spray 05/25/19 09:00 05/28/19 08:31 Flonase Nasal [place] EA NOSTRIL 1 spray DAILY MALCOM Administration Gabapentin 600 mg 05/27/19 10:15 05/28/19 08:31 Neurontin PO 600 mg BID MALCOM Administration Sodium Chloride 1,000 mls @ 20 mls/hr 05/24/19 14:00 05/28/19 12:42 Saline 0.9% IV 20 mls/hr .Q24H MALCOM Administration Piperacillin Sod/Tazobactam 100 mls @ 25 mls/hr 05/24/19 21:00 05/28/19 08:33 Sod 3.375 gm/ Sodium Chloride IVPB 25 mls/hr Q12HR MACLOM Administration Ferric Sodium Gluconate 125 mg 110 mls @ 100 mls/hr 05/27/19 18:00 05/28/19 10:41 / Sodium Chloride IVPB 100 mls/hr DAILY MALCOM Administration Methylprednisolone Sodium Succinate 40 mg 05/27/19 12:00 05/28/19 12:42 Solu-Medrol IV 40 mg Q6HR MALCOM Administration Metoprolol Tartrate 25 mg 10/01/19 09:00 05/28/19 08:31 Lopressor PO 25 mg BID MALCOM Administration Midodrine 5 mg 05/27/19 17:30 05/28/19 06:51 Proamatine PO 5 mg AC-BID MALCOM Administration Miscellaneous Information 1 each 05/25/19 06:36 Potassium Per Protocol MISCELLANE DAILY PRN Per Protocol Protocol Miscellaneous Information 1 each 05/26/19 05:59 Potassium Per Protocol MISCELLANE DAILY PRN Per Protocol Protocol Naloxone HCl 0.2 mg 05/24/19 13:56 Narcan IV Q2M PRN Opioid Reversal Nystatin 500,000 unit 05/25/19 18:00 05/28/19 12:42 Mycostatin Oral Susp PO 500,000 unit QID MALCOM Administration Pantoprazole Sodium 40 mg 05/24/19 14:00 05/28/19 08:32 Protonix IV 40 mg BID MALCOM Administration Senna/Docusate Sodium 2 each 05/27/19 12:00 05/28/19 08:32 Senokot-S PO Not Given DAILY [facility] Sucralfate 1 gm 05/24/19 17:30 05/28/19 12:42 Carafate PO 1 gm ACHS MALCOM Administration Objective - Vital Signs Vital signs: Vital Signs Temp 97.5 F L 05/28/19 14:16 Pulse 86 05/28/19 14:16 Resp 36 H 05/28/19 14:16 BP 108/71 05/28/19 14:16 Pulse Ox 94 L 05/28/19 14:00 Intake & Output 05/27/19 05/28/19 05/28/19 18:59 06:59 18:59 Intake Total 310 220 240 Output Total 53 10 3036 Balance 257 210 -2796 Weight 132 kg 129.8 kg Intake: IV 310 220 240 NS 110 120 40 Piperacillin-Tazobactam 3 100 100 100 .375 gm In Sodium Chloride 0.9% 100 ml @ 25 mls/hr IVPB Q12HR MALCOM Rx #:[id number] Sodium Ferric Gluconat- 100 100 Sucrose 125 mg In Sodium Chloride 0.9% 100 ml @ 100 mls/hr IVPB DAILY MALCOM Rx#:[id number] Output: Urine 53 10 36 Hemodialysis 3000 Other: Voiding Method Indwelling Catheter Indwelling Catheter Indwelling Catheter # Bowel Movements 1 1 - Exam GENERAL: The patient is alert and oriented x3, not in any acute distress. Obese HEENT: Pupils are round and equally reacting to light. EOMI. No scleral icterus. No conjunctival pallor. Normocephalic, atraumatic. No pharyngeal erythema. No thyromegaly. CARDIOVASCULAR: S1 and S2 present. No murmurs, rubs, or gallops. -PULMONARY: Chest is clear to auscultation, bilateral basal crepitation -ABDOMEN: Soft, nontender, nondistended, normoactive bowel sounds. No palpable organomegaly. Hunter catheter is in place with light color on brown urine MUSCULOSKELETAL: No joint swelling or deformity. EXTREMITIES: No cyanosis, clubbing, or pedal edema. NEUROLOGICAL: Gross neurological examination did not reveal any focal deficits. SKIN: No rashes. No petechiae - Labs CBC & Chem 7: 05/28/19 08:18 05/28/19 08:18 Labs: Abnormal Lab Results - Last 24 Hours (Table) 05/27/19 05/27/19 05/28/19 Range/Units 18:24 23:39 04:52 RBC (3.80-5.40) m/uL Hgb (11.4-16.0) gm/dL Hct (34.0-46.0) % MCV (80.0-100.0) fL RDW (11.5-15.5) % Plt Count (150-450) k/uL Lymphocytes # (1.0-4.8) k/uL Macrocytosis Sodium (137-145) mmol/L Carbon Dioxide (22-30) mmol/L BUN (7-17) mg/dL Creatinine (0.52-1.04) mg/dL Glucose (74-99) mg/dL POC Glucose (mg/dL) 161 H 132 H (75-99) mg/dL Calcium (8.4-10.2) mg/dL Delta Bilirubin 0.7 H (0.0-0.2) mg/dL AST 69 H (14-36) U/L Alkaline Phosphatase 153 H (38-126) U/L Total Protein 5.3 L (6.3-8.2) g/dL Albumin 2.4 L (3.5-5.0) g/dL 05/28/19 05/28/19 05/28/19 Range/Units 06:09 08:18 08:18 RBC 2.60 L (3.80-5.40) m/uL Hgb 8.7 L (11.4-16.0) gm/dL Hct 26.5 L (34.0-46.0) % MCV 101.9 H (80.0-100.0) fL RDW 20.7 H (11.5-15.5) % Plt Count 95 L (150-450) k/uL Lymphocytes # 0.2 L (1.0-4.8) k/uL Macrocytosis Marked A Sodium 135 L (137-145) mmol/L Carbon Dioxide 21 L (22-30) mmol/L BUN 44 H (7-17) mg/dL Creatinine 5.69 H (0.52-1.04) mg/dL Glucose 113 H (74-99) mg/dL POC Glucose (mg/dL) 135 H (75-99) mg/dL Calcium 6.9 L (8.4-10.2) mg/dL Delta Bilirubin (0.0-0.2) mg/dL AST (14-36) U/L Alkaline Phosphatase (38-126) U/L Total Protein (6.3-8.2) g/dL Albumin (3.5-5.0) g/dL 05/28/19 Range/Units 12:07 RBC (3.80-5.40) m/uL Hgb (11.4-16.0) gm/dL Hct (34.0-46.0) % MCV (80.0-100.0) fL RDW (11.5-15.5) % Plt Count (150-450) k/uL Lymphocytes # (1.0-4.8) k/uL Macrocytosis Sodium (137-145) mmol/L Carbon Dioxide (22-30) mmol/L BUN (7-17) mg/dL Creatinine (0.52-1.04) mg/dL Glucose (74-99) mg/dL POC Glucose (mg/dL) 105 H (75-99) mg/dL Calcium (8.4-10.2) mg/dL Delta Bilirubin (0.0-0.2) mg/dL AST (14-36) U/L Alkaline Phosphatase (38-126) U/L Total Protein (6.3-8.2) g/dL Albumin (3.5-5.0) g/dL Microbiology - Last 24 Hours (Table) 05/24/19 13:39 Blood Culture - Preliminary Blood No Growth after 72 hours Assessment and Plan Assessment: Pulmonary edema, secondary to acute renal failure needing hemodialysis Acute respiratory failure Acute GI bleed Acute blood loss anemia Acute urinary tract infection Hypotension secondary to above, Possible combined septic and hemorrhagic shock. Improved, Off pressors currently recent pneumonia and respiratory failure End-stage renal disease on dialysis, patient was started on dialysis last admission at [facility] Atrial fibrillation Hypertension Hyperlipidemia CVA/TIA, with left hemiparesis Thrombocytopenia History of left breast cancer in 1997, status post breast surgery, metastatic to the spine and liver Plan: This is a pleasant 64 years old female who presents with GI bleed and hypoten ebony with picture of shock. Central line placement, transfuse blood as needed to keep hemoglobin above 7. Monitor vitals and hemoglobin. Continue with Protonix IV. we Appreciate critical care team and GI team and follow the recommendation. Nephrology consult is appreciated, planned for hemodialysis. Continue with Zosyn. Nystatin is added. Cardiology on the case however patient is off anticoagulation for her acute GI bleed. Labs and medication were reviewed.. Continue same treatment. Continue with symptomatic treatment. Resume home medication. Monitor lytes and vitals. DVT and GI prophylaxis. Further recommendations of the clinical course of the patient DVT prophylaxis: No heparin and review of GI bleed GI Prophylaxis: Protonix Prognosis is guarded
[2019-05-28 18:14] LABS: Glucose,Whole Blood 150 mg/dL (75-99)
--- NOTE | 2019-05-28 20:05 | PN ---
PROGRESS NOTE Patient is seen for followup for volume overload and acute kidney injury. She is quite short of breath this morning. Patient is due for dialysis. Her blood pressure was 115/79, heart rate 80 per minute. Patient is afebrile. EXAMINATION: Of the heart S1, S2. Examination of the lungs, bilateral breath sounds are heard. Decreased breath sounds at bases. Bilateral crackles are heard as well. ABDOMEN: Soft, obese, nontender. Examination of lower extremities shows edema 1+ bilaterally. LABS SHOW: Hemoglobin 8.7, sodium 135, potassium 5.0. BUN 44. Serum creatinine 5.69. Albumin was 2.4. ASSESSMENT: 1. Acute kidney injury, hemodialysis dependent. The patient remains oliguric. She will be dialyzed today. 2. Volume overload hemodialysis today as well as in a.m. Continue with the IV Lasix. 3. Anemia, maintained on IV iron and Aranesp. No active bleeding noted at this time. 4. Status post sepsis on last admission. PLAN: Hemodialysis today as well as in a.m. Continue with the Aranesp. Continue with IV iron. MMODL / IJN: [id number] /
--- NOTE | 2019-05-28 23:17 | PN ---
PROGRESS NOTE Mrs. Lopez is a lady with multiple medical problems including GI bleeding, metastatic breast cancer with a recent prolonged hospital stay. She is maintaining sinus rhythm. Heart rate is much better compared to yesterday. Her blood pressure has also improved a lot. She has end-stage renal disease on hemodialysis. From a cardiac point standpoint, she appears to be more stable. I will continue current medications. Vitals are stable. JVD is 1 cm. No carotid bruit. S1-S2 heard normally. Short systolic murmur is audible. Lungs reveal scattered rhonchi, but improved air entry compared to yesterday. Rest of physical examination is unchanged. We will continue the beta blockers and see how she does. MMODL / IJN: [id number] /
[2019-05-28 23:40] LABS: Glucose,Whole Blood 146 mg/dL (75-99)
--- NOTE | 2019-05-28 23:44 | P.CONS ---
History of Present Illness - Reason for Consult Consult date: 05/28/19 candiduria Requesting physician: Kelli Delacruz - Chief Complaint unresponsive and hypotension at the [place] few days ago - History of Present Illness Patient is a 64-year-old female with a past medical history medical metastatic breast cancer for the patient has been on chemoradiation therapy patient recently did have a prolonged hospital stay with sepsis and pneumonia and did develop renal failure and patient currently on hemodialysis, patient is currently in penitentiary resident undergoing rehabilitation she was noticed to be unresponsive hypotensive and hypoxemic for the patient was initially taken to [facility] which she was noticed to have a hemoglobin of 6.9 subsequently patient has been transferred to [facility] for further management of her underlying condition, the patient hardly makes any urine however she did got a Hunter catheter in the ER and a UA was obtained which was positive and the patient was started on Zosyn patient chest x-ray reported features of congestive heart failure this patient who did not have any fever during this hospital stay and her white count has been normal she did drop her hemoglobin and has been tra nsfused multiple units of blood patient urine culture came back positive for Mary albicans blood culture has been negative infectious disease was consulted for further recommendation regarding antibiotic and antifungal therapy. Patient is currently afebrile patient denies having any headache no chest pain some shortness of breath minimal cough no nausea no vomiting no abdominal pain no diarrhea. Review of Systems CONSTITUTIONAL: Positive for weakness. no Fever EYES: No complaint. ENT:No complaint. RESPIRATORY: as per HPI CARDIOVASCULAR: No complaint. GENITOURINARY: as per HPI . GASTROINTESTINAL: No complaint. MUSCULOSKELETAL: No complaint. INTEGUMENTARY: No complaint. PSYCHOLOGICAL: No complaint. ENDOCRINE: No complaint. NEUROLOGIC: No complaint. Past Medical History Past Medical History: Cancer, CVA/TIA, Hyperlipidemia, Hypertension, Renal Disease Additional Past Medical History / Comment(s): hx CVA left side 2018, Left breast cancer 1997, spine cancer 2018, KIT currently chronic kidney failure and the patient is requiring hemodialysis periodically 3 times a week my recent hospitalization for sepsis History of Any Multi-Drug Resistant Organisms: None Reported Past Surgical History: Breast Surgery, Hysterectomy, Joint Replacement Additional Past Surgical History / Comment(s): left knee replacement, several breast biopsies Past Anesthesia/Blood Transfusion Reactions: No Reported Reaction Past Psychological History: No Psychological Hx Reported Smoking Status: Former smoker - Past Family History Father Family Medical History: Cancer Additional Family Medical History / Comment(s): Father from cancer in the lining of his lungs. He had occupational chemical exposures. Mother Family Medical History: Cancer, Coronary Artery Disease (CAD) Additional Family Medical History / Comment(s): Mother had colon cancer with surgery. She also had heart disease. Medications and Allergies Home Medications Medication Instructions Recorded Confirmed Type Aspirin [Adult Low Dose Aspirin EC] 162 mg PO DAILY 07/03/18 05/24/19 History Albuterol Inhaler [Ventolin Hfa 2 puff INHALATION RT-Q4H PRN 03/05/19 05/24/19 History Inhaler] Fluticasone Nasal [place] [Flonase 1 spray EA NOSTRIL DAILY 03/05/19 05/24/19 History Nasal [place]] Polyethylene Glycol 3350 [Miralax] 17 gm PO DAILY PRN #30 powd.pack 03/11/19 05/24/19 Rx Sucralfate [Carafate] 1 gm PO ACHS #120 tablet 03/11/19 05/24/19 Rx ALPRAZolam [Xanax] 0.25 mg PO TID PRN #6 tab 05/20/19 05/24/19 Rx Amiodarone [Cordarone] 200 mg PO BID tab 05/20/19 05/24/19 Rx Calcium Carbonate [Tums] 1,000 mg PO TID chew 05/20/19 05/24/19 Rx Dronabinol [Marinol] 5 mg PO AC-BID #3 cap 05/20/19 05/24/19 Rx Gabapentin [Neurontin] 600 mg PO HS #3 cap 05/20/19 05/24/19 Rx Ipratropium-Albuterol Nebulize 3 ml INHALATION RT-Q4H PRN 05/20/19 05/24/19 Rx [Duoneb 0.5 mg-3 mg/3 ml Soln] ampul.neb Ipratropium-Albuterol Nebulize 3 ml INHALATION RT-QID ampul.neb 05/20/19 05/24/19 Rx [Duoneb 0.5 mg-3 mg/3 ml Soln] Melatonin 3 mg PO HS tablet 05/20/19 05/24/19 Rx Metoprolol Succinate (ER) [Toprol 50 mg PO DAILY tab.er.24h 05/20/19 05/24/19 Rx XL] Ondansetron [Zofran] 4 mg PO Q8HR PRN #2 tab 05/20/19 05/24/19 Rx INSULIN ASPART (NovoLOG) [NovoLOG See Protocol SQ ACHS 05/24/19 05/24/19 History (formulary)] Allergies Allergy/AdvReac Type Severity Reaction Status Date / Time No Known Allergies Allergy Verified 05/24/19 13:45 Physical Exam Vitals: Vital Signs Temp Pulse Pulse Resp BP BP Pulse Ox 05/28/19 14:16 97.5 F L 86 36 H 108/71 05/28/19 14:00 86 23 125/56 94 L 05/28/19 13:00 80 26 H 115/71 97 05/28/19 12:10 82 05/28/19 12:00 97.5 F L 77 20 108/77 90 L 05/28/19 11:56 80 05/28/19 11:00 73 20 119/51 95 05/28/19 10:00 75 24 114/53 89 L 05/28/19 09:00 85 24 115/79 88 L 05/28/19 08:00 97.5 F L 75 24 111/62 98 05/28/19 07:00 82 14 117/59 93 L 05/28/19 06:06 97 05/28/19 06:00 72 14 104/53 99 05/28/19 05:40 97 05/28/19 05:00 93 22 116/67 94 L 05/28/19 04:00 97.6 F 72 14 106/58 97 05/28/19 03:40 95 05/28/19 03:01 77 22 101/62 91 L 05/28/19 02:00 69 22 102/53 96 05/28/19 01:42 95 05/28/19 01:00 71 20 94/53 98 05/28/19 00:05 98 05/28/19 00:00 97.4 F L 75 25 H 105/57 98 05/27/19 23:00 82 20 123/65 99 05/27/19 22:04 97 05/27/19 22:00 83 21 98/58 98 05/27/19 21:00 90 23 109/56 98 05/27/19 20:02 94 05/27/19 20:00 97.6 F 96 22 143/71 94 L 05/27/19 19:53 91 05/27/19 19:49 91 L 05/27/19 19:00 92 24 120/73 90 L 05/27/19 18:00 93 21 131/64 95 05/27/19 17:00 86 15 114/62 100 05/27/19 16:18 90 05/27/19 16:00 98.2 F 96 24 111/62 92 L 05/27/19 15:56 93 L 05/27/19 15:00 96 24 121/73 94 L Intake and Output 05/27/19 05/28/19 05/28/19 22:59 06:59 14:59 Intake Total 280 80 240 Output Total 13 10 3036 Balance 267 70 -2796 Intake: IV 280 80 240 NS 80 80 40 Piperacillin-Tazobactam 3 100 100 .375 gm In Sodium Chloride 0.9% 100 ml @ 25 mls/hr IVPB Q12HR [facility] Rx #:[id number] Sodium Ferric Gluconat- 100 100 Sucrose 125 mg In Sodium Chloride 0.9% 100 ml @ 100 mls/hr IVPB DAILY [facility] Rx#:[id number] Output: Urine 13 10 36 Hemodialysis 3000 Other: Voiding Method Indwelling Catheter Indwelling Catheter Indwelling Catheter # Bowel Movements 1 1 Weight 129.8 kg GENERAL DESCRIPTION: Middle-aged female lying in bed, no distress. No tachypnea or accessory muscle of respiration use. HEENT: Shows Pallor , no scleral icterus. Oral mucous membrane is dry. No pharyngeal erythema or thrush NECK: Trachea central, no thyromegaly. LUNGS: Unlabored breathing. decreased breath sounds at the bases. No wheeze or crackle. HEART: S1, S2, regular rate and rhythm. No loud murmur ABDOMEN: Soft, no tenderness , guarding or rigidity, no organomegaly EXTREMITIES: No edema of feet. SKIN: No rash, no masses palpable. NEUROLOGICAL: The patient is awake, alert, oriented x3, mood and affect normal. Results CBC & Chem 7: 05/28/19 08:18 05/28/19 08:18 Labs: Abnormal Lab Results - Last 24 Hours (Table) 05/27/19 05/27/19 05/28/19 Range/Units 18:24 23:39 04:52 RBC (3.80-5.40) m/uL Hgb (11.4-16.0) gm/dL Hct (34.0-46.0) % MCV (80.0-100.0) fL RDW (11.5-15.5) % Plt Count (150-450) k/uL Lymphocytes # (1.0-4.8) k/uL Macrocytosis Sodium (137-145) mmol/L Carbon Dioxide (22-30) mmol/L BUN (7-17) mg/dL Creatinine (0.52-1.04) mg/dL Glucose (74-99) mg/dL POC Glucose (mg/dL) 161 H 132 H (75-99) mg/dL Calcium (8.4-10.2) mg/dL Delta Bilirubin 0.7 H (0.0-0.2) mg/dL AST 69 H (14-36) U/L Alkaline Phosphatase 153 H (38-126) U/L Total Protein 5.3 L (6.3-8.2) g/dL Albumin 2.4 L (3.5-5.0) g/dL 05/28/19 05/28/19 05/28/19 Range/Units 06:09 08:18 08:18 RBC 2.60 L (3.80-5.40) m/uL Hgb 8.7 L (11.4-16.0) gm/dL Hct 26.5 L (34.0-46.0) % MCV 101.9 H (80.0-100.0) fL RDW 20.7 H (11.5-15.5) % Plt Count 95 L (150-450) k/uL Lymphocytes # 0.2 L (1.0-4.8) k/uL Macrocytosis Marked A Sodium 135 L (137-145) mmol/L Carbon Dioxide 21 L (22-30) mmol/L BUN 44 H (7-17) mg/dL Creatinine 5.69 H (0.52-1.04) mg/dL Glucose 113 H (74-99) mg/dL POC Glucose (mg/dL) 135 H (75-99) mg/dL Calcium 6.9 L (8.4-10.2) mg/dL Delta Bilirubin (0.0-0.2) mg/dL AST (14-36) U/L Alkaline Phosphatase (38-126) U/L Total Protein (6.3-8.2) g/dL Albumin (3.5-5.0) g/dL 05/28/19 Range/Units 12:07 RBC (3.80-5.40) m/uL Hgb (11.4-16.0) gm/dL Hct (34.0-46.0) % MCV (80.0-100.0) fL RDW (11.5-15.5) % Plt Count (150-450) k/uL Lymphocytes # (1.0-4.8) k/uL Macrocytosis Sodium (137-145) mmol/L Carbon Dioxide (22-30) mmol/L BUN (7-17) mg/dL Creatinine (0.52-1.04) mg/dL Glucose (74-99) mg/dL POC Glucose (mg/dL) 105 H (75-99) mg/dL Calcium (8.4-10.2) mg/dL Delta Bilirubin (0.0-0.2) mg/dL AST (14-36) U/L Alkaline Phosphatase (38-126) U/L Total Protein (6.3-8.2) g/dL Albumin (3.5-5.0) g/dL Microbiology - Last 24 Hours (Table) 05/24/19 13:39 Blood Culture - Preliminary Blood No Growth after 72 hours Assessment and Plan Assessment: 1-patient with positive urine culture with Mary albicans in this patient currently dialysis dependent and hardly makes any urine possibly representing colonic patient rather than pathogen in this patient with no fever or elevated white count. 2-patient with admission to hospital with hypotension and hypoxemia possibly related to fluid overload as clinical suspicion for underlying pneumonia access has been mostly CHF pattern. Plan: 1-recommend to discontinue her Hunter catheter 2-no need for antifungal therapy at this point. 3-as for clinically do not have any active focus of infection with a chest x-ray mostly CHF pattern abdominal soft on clinical examination and no evidence of any cellulitis Zosyn can be safely discontinued as well. We will follow on clinical condition and cultures to further adjust medication if needed Thank you for this consultation will follow this patient along with you Time with Patient: Greater than 30
[2019-05-29] MEDS: methylPREDNISolone SOD SUCCI 40 MG/ML 1 ML VIAL IV SCH ×4 (05:48→23:42)
[2019-05-29] MEDS: ALBUTEROL NEBULIZED 2.5 MG/3 ML INHALATION PRN ×4 (05:58→20:00)
[2019-05-29 06:06] LABS: Glucose,Whole Blood 139 mg/dL (75-99)
[2019-05-29 06:23] LABS: Anisocytosis Moderate; Basophils % (A) 0 %; Eosinophils % (A) 0 %; HCT 27.1 % (34.0-46.0); HGB 8.4 gm/dL (11.4-16.0); Hypochromasia Moderate; Lymphocytes # (A) 0.2 k/uL (1.0-4.8); Lymphocytes % (A) 2 %; MCH 32.8 pg (25.0-35.0); Macrocytosis Marked; Mean Platelet Volume 9.5; Monocytes # (A) 0.5 k/uL (0-1.0); Monocytes % (A) 6 %; Neutrophils # (A) 7.3 k/uL (1.3-7.7); Neutrophils % (A) 90 %; Platelet Count 103 k/uL (150-450); Poikilocytosis Moderate; RBC 2.56 m/uL (3.80-5.40); RDW 20.9 % (11.5-15.5); WBC 8.1 k/uL (3.8-10.6)
[2019-05-29 06:31] LABS: Albumin 2.5 g/dL (3.5-5.0); Bilirubin, Delta 0.5 mg/dL (0.0-0.2); Bilirubin,Unconjugated 0.3 mg/dL (0.0-1.1); Calcium 7.3 mg/dL (8.4-10.2); Potassium 3.6 mmol/L (3.5-5.1); Total Bilirubin 0.8 mg/dL (0.2-1.3); Total Protein 5.4 g/dL (6.3-8.2)
[2019-05-29] MEDS: MIDODRINE 5 MG TAB PO SCH ×2 (06:51→17:28)
[2019-05-29] MEDS: SUCRALFATE 1 GM TAB PO SCH ×4 (06:51→20:10)
--- NOTE | 2019-05-29 08:26 | XR ---
EXAMINATION TYPE: XR chest 1V DATE OF EXAM: 05/29/2019 COMPARISON: 05/28/2019 HISTORY: 64-year-old female respiratory failure TECHNIQUE: Single frontal view of the chest is obtained. FINDINGS: Right-sided double-lumen hemodialysis catheter with tips in the right atrium. Heart remains mildly en larged with diffuse interstitial and patchy airspace opacities throughout. IMPRESSION: Overall stable findings, probable interstitial pulmonary edema.
[2019-05-29] MEDS: SODIUM FERRIC GLUCONAT-SUCROSE 125 MG in SODIUM CHLORIDE 0.9% 100 ML IVPB SCH (08:45)
[2019-05-29] MEDS ORDERED: POTASSIUM CHLORIDE ER 10 MEQ TAB.ER.PRT PO STA (08:54)
[2019-05-29] MEDS: SENNOSIDES-DOCUSATE SODIUM 1 EACH TAB PO SCH (08:57)
--- NOTE | 2019-05-29 09:01 | PN ---
PROGRESS NOTE Mrs Lopez is in sinus rhythm, maintaining very well. She seems to be hemodynamically more stable today. She continues to be on dialysis. However, cardiac- mendoza she is more stable. Her blood pressure seems to be better. We will continue her current medical regimen. She is on midodrine 5 mg b.i.d. which is helping her blood pressure also. I have initiated her on beta linda, Lopressor 25 mg b.i.d. She is tolerating this well and is maintaining sinus rhythm. We will continue her current medical regimen and no other change in management from a cardiac standpoint. MMODL / IJN: [id number] /
[2019-05-29] MEDS: METOPROLOL TARTRATE 25 MG TAB PO SCH ×2 (10:31→20:10)
[2019-05-29] MEDS: CYANOCOBALAMIN 500 MCG TAB PO SCH (10:31)
[2019-05-29] MEDS: FLUTICASONE 50MCG/SPRAY NASAL 16GM EA NOSTRIL SCH (10:32)
[2019-05-29] MEDS: GABAPENTIN 300 MG CAP PO SCH ×2 (10:32→20:10)
[2019-05-29] MEDS: AMIODARONE 200 MG TAB PO SCH (10:32)
[2019-05-29] MEDS: PIPERACILLIN-TAZOBACTAM 3.375 GM in SODIUM CHLORIDE 0.9% 100 ML IVPB SCH ×2 (10:32→20:08)
[2019-05-29] MEDS: PANTOPRAZOLE 40 MG/10 ML VIAL IV SCH ×2 (10:33→20:11)
[2019-05-29] MEDS: NYSTATIN 100,000 UNIT/ML SUSP 500,000 UNIT/5 ML CUP PO SCH ×4 (10:34→20:12)
--- NOTE | 2019-05-29 11:06 | P.PN ---
Subjective This is a pleasant 64 years old female with past medical history of hyperlipidemia, hypertension, CVA/TIA, metastatic left breast cancer in 1998 and the spine cancer in 2018, mostly its metastasis from her breast cancer, end- stage renal disease on dialysis, atrial fibrillation with RVR, she was recently discharged from the hospital for recent pneumonia and respiratory failure Patient was transferred from [facility] for GI hemorrhage and hypotension. At the [facility] she was confused and patient was found to be hypotensive and hypoxic with oxygen saturations at 78%, on her way to the hospital patient started waking up with supplemental oxygen. At first patient was sent to [facility] before she was transferred to the current hospital [place] labs reviewed, it looks like BMP and liver enzymes were unremarkable, hemoglobin was 6.9, occult blood in the stools positive, urinalysis showing doubly BC of 30-50 with positive nitrite. EKG showing normal sinus rhythm at [address]-T changes with QTC 498 Patient blood pressure was hypotensive with 77/52, she's been afebrile. Labs show hemoglobin 7 with hematocrit of 20.5, wBC 8.1K and platelet count 76k. Sodium 131, creatinine 3.5, liver enzymes mildly elevated at 79 and 58. INR is 1.1. Urine analysis is indicating for infection Patient is getting 1 unit of blood transfusion 05/25/2019 Patient resting comfortably in bed, she remains in the ICU currently. No chest pain or dyspnea. Patient with no nausea vomiting, she is passing gas but no bowel movement, no abdominal pain, she is on clear diet and wants to be advanced to soft area at she still have Hunter catheter with light brown urine, less turbid than yesterday. Hemoglobin stable at 7.2, WBC is 10.3 K, sodium 133 is stable. Creatinine went up to 4.2 slight improvement. Miner Operator evaluated the patient and recommended hemodialysis today,. Pulmonary/critical care team is still following the patient closely 05/26/2019 Patient is seen in the ICU, patient is on soft diet with no nausea vomiting or abdominal pain. Patient has no bowel movement yet. She underwent hemodialysis yesterday and her oxygen requirement is improved from 12 down to 6-7 L/m, she had right upper chest catheter, also Hunter catheter with light brown urine is improving with antibiotics. Patient is still tachypneic with a breathing rate 24-30, her support vitals stable, and patient is afebrile. Her hemoglobin today dropped to 6.3 and she is getting 1 unit of blood transfusion, also patient is a scheduled to have hemodialysis today. Liver enzymes are slightly elevated. 05/27/2019 Patient is awake and alert, she is sitting up in bed, she is in respiratory distress on ventilation mask at 10 L oxygen via no debris that and she saturating 98%, she is slightly tachycardic 109-112, rest of vitals are unremar kable with blood pressure is 107/57, although it was lower this morning 90/56, patient is needing more oxygen requirement. She is in soft diet with no bowel movement since yesterday, however she is passing gas and tolerating her diet well. Left femoral and right upper chest catheters are intact and place. Hunter catheter would like to brown urine. Patient is planned for hemodialysis today. Miner Operator see him on the case. Diana's on Zosyn and nystatin for her urinary tract infection, she is off Levophed. She is off anticoagulation from her A. fib with history of stroke due to recent drop in hemoglobin down to 6.3 needed a blood transfusion her hemoglobin today is 8.4 which is a stable. Platelets are stable at 78. Chest x-ray still showing pulmonary edema 05/28/2019 Patient remains in the ICU, her respiratory status got worse compared to yesterday and she is needing more oxygen at high flow cannula with FiO2 of 85% and oxygen flow rate of 60. Patient is becoming high-risk for intubation however her blood pressure is stable. She has frequent bowel movements but there is no blood or dark-colored stool. No nausea vomiting. She underwent hemodialysis today and 3 L of fluids has been taken off. stable hemoglobin at 8.7, with platelets 90 5k,, sodium 135, repeat chest x-ray: Showing pulmonary congestion and edema. Urine culture is growing Mary. Patient remains on Zosyn and nystatin, she is also on Solu-Medrol. 05/29/2019 Patient is still dyspneic while she is in the ICU she is on high flow oxygen with increasing her FiO2 up to 90%, she is short of breath and she could not finish his sentences due to her dyspnea. She denies chest pain. No significant coughing. No abdominal pain, Hunter catheter was taken out. No dark stool. Patient is still tachypneic with a breathing rate at 27 at times, blood pressure 105/47. Labs showing stable hemoglobin at 8.4, WBC normal at 60 8.1K, platelets improving to 103K. Repeat chest x-ray showing stable interstitial edema. Equity Research Analyst recommended to continue with Lopressor 25 twice a day and medodrine, urine culture is growing Mary and patient is currently on nystatin and Zosyn. She is also on Solu-Medrol 40 mg. Patient is getting hemodialysis and nephrology of from the case closely. Review of systems CONSTITUTIONAL: No fever, no malaise, no fatigue. HEENT: No recent visual problems or hearing problems. Denied any sore throat. CARDIOVASCULAR: No orthopnea, PND, no palpitations, no syncope. PULMONARY: no hemoptysis. GASTROINTESTINAL: no nausea, no vomiting, no abdominal pain. Normoactive bowel sounds. NEUROLOGICAL: No headaches, no weakness, no numbness. HEMATOLOGICAL: Denies any bleeding or petechiae. GENITOURINARY: Denies any burning micturition, frequency, or urgency. MUSCULOSKELETAL/RHEUMATOLOGICAL: Denies any joint pain, swelling, or any muscle pain. ENDOCRINE: Denies any polyuria or polydipsia. Active Medications Generic Name Dose Route Start Last Admin Trade Name Freq PRN Reason Stop Dose Admin Albuterol Sulfate 2.5 mg 05/24/19 15:54 05/29/19 05:58 Ventolin Nebulized INHALATION 2.5 mg RT-Q4H PRN Administration Shortness Of Breath Alprazolam 0.25 mg 05/24/19 15:56 Xanax PO TID PRN Anxiety Amiodarone HCl 200 mg 05/26/19 09:15 05/29/19 10:32 Cordarone PO 200 mg DAILY MALCOM Administration Cyanocobalamin 500 mcg 05/28/19 09:00 05/29/19 10:31 Vitamin B-12 PO 500 mcg DAILY MALCOM Administration Darbepoetin Doroteo 60 mcg 05/27/19 18:00 05/27/19 18:05 Aranesp SQ 60 mcg Q7D MALCOM Administration Fluticasone Propionate 1 spray 05/25/19 09:00 05/29/19 10:32 Flonase Nasal [place] EA NOSTRIL 1 spray DAILY MALCOM Administration Gabapentin 600 mg 05/27/19 10:15 05/29/19 10:32 Neurontin PO 600 mg BID MALCOM Administration Sodium Chloride 1,000 mls @ 20 mls/hr 05/24/19 14:00 05/28/19 12:42 Saline 0.9% IV 20 mls/hr .Q24H MALCOM Administration Piperacillin Sod/Tazobactam 100 mls @ 25 mls/hr 05/24/19 21:00 05/29/19 10:32 Sod 3.375 gm/ Sodium Chloride IVPB 25 mls/hr Q12HR MALCOM Administration Ferric Sodium Gluconate 125 mg 110 mls @ 100 mls/hr 05/27/19 18:00 05/29/19 08:45 / Sodium Chloride IVPB 100 mls/hr DAILY MALCOM Administration Methylprednisolone Sodium Succinate 40 mg 05/27/19 12:00 05/29/19 05:48 Solu-Medrol IV 40 mg Q6HR MALCOM Administration Metoprolol Tartrate 25 mg 05/27/19 09:00 05/29/19 10:31 Lopressor PO 25 mg BID MALCOM Administration Midodrine 5 mg 05/27/19 17:30 05/29/19 06:51 Proamatine PO 5 mg AC-BID MALCOM Administration Miscellaneous Information 1 each 05/25/19 06:36 Potassium Per Protocol MISCELLANE DAILY PRN Per Protocol Protocol Miscellaneous Information 1 each 05/26/19 05:59 Potassium Per Protocol MISCELLANE DAILY PRN Per Protocol Protocol Naloxone HCl 0.2 mg 05/24/19 13:56 Narcan IV Q2M PRN Opioid Reversal Nystatin 500,000 unit 05/25/19 18:00 05/29/19 10:34 Mycostatin Oral Susp PO Not Given QID MALCOM Pantoprazole Sodium 40 mg 05/24/19 14:00 05/29/19 10:33 Protonix IV 40 mg BID MALCOM Administration Senna/Docusate Sodium 2 each 05/27/19 12:00 05/29/19 08:57 Senokot-S PO Not Given DAILY MALCOM Sucralfate 1 gm 05/24/19 17:30 05/29/19 06:51 Carafate PO 1 gm ACHS MALCOM Administration Objective - Vital Signs Vital signs: Vital Signs Temp 97.6 F 05/29/19 08:00 Pulse 84 05/29/19 10:00 Resp 27 H 05/29/19 10:00 BP 105/47 05/29/19 10:00 Pulse Ox 92 L 05/29/19 10:00 Intake & Output 05/28/19 05/29/19 05/29/19 18:59 06:59 18:59 Intake Total 280 220 130 Output Total 3044 0 Balance -2764 220 130 Weight 129.3 kg Intake: IV 280 220 130 NS 80 120 30 Piperacillin-Tazobactam 3 100 100 .375 gm In Sodium Chloride 0.9% 100 ml @ 25 mls/hr IVPB Q12HR MALCOM Rx #:[id number] Sodium Ferric Gluconat- 100 100 Sucrose 125 mg In Sodium Chloride 0.9% 100 ml @ 100 mls/hr IVPB DAILY MALCOM Rx#:[id number] Output: Urine 44 0 Hemodialysis 3000 Other: Voiding Method Indwelling Catheter # Bowel Movements 1 2 1 - Exam GENERAL: The patient is alert and oriented x3, not in any acute distress. Obese HEENT: Pupils are round and equally reacting to light. EOMI. No scleral icterus. No conjunctival pallor. Normocephalic, atraumatic. No pharyngeal erythema. No thyromegaly. CARDIOVASCULAR: S1 and S2 present. No murmurs, rubs, or gallops. -PULMONARY: Chest is clear to auscultation, bilateral basal crepitation -ABDOMEN: Soft, nontender, nondistended, normoactive bowel sounds. No palpable organomegaly. Hunter catheter is in place with light color on brown urine MUSCULOSKELETAL: No joint swelling or deformity. EXTREMITIES: No cyanosis, clubbing, or pedal edema. NEUROLOGICAL: Gross neurological examination did not reveal any focal deficits. SKIN: No rashes. No petechiae - Labs CBC & Chem 7: 05/29/19 05:18 05/29/19 05:18 Labs: Abnormal Lab Results - Last 24 Hours (Table) 05/26/19 05/28/19 05/28/19 Range/Units 10:41 12:07 18:02 RBC (3.80-5.40) m/uL Hgb (11.4-16.0) gm/dL Hct (34.0-46.0) % MCV (80.0-100.0) fL RDW (11.5-15.5) % Plt Count (150-450) k/uL Lymphocytes # (1.0-4.8) k/uL Macrocytosis Sodium (137-145) mmol/L BUN (7-17) mg/dL Creatinine (0.52-1.04) mg/dL Glucose (74-99) mg/dL POC Glucose (mg/dL) 105 H 150 H (75-99) mg/dL Calcium (8.4-10.2) mg/dL Delta Bilirubin (0.0-0.2) mg/dL AST (14-36) U/L Alkaline Phosphatase (38-126) U/L Total Protein (6.3-8.2) g/dL Albumin (3.5-5.0) g/dL Methylmalonic Acid 0.56 H (<0.40) umol/L 05/28/19 05/29/19 05/29/19 Range/Units 23:29 05:18 05:18 RBC 2.56 L (3.80-5.40) m/uL Hgb 8.4 L (11.4-16.0) gm/dL Hct 27.1 L (34.0-46.0) % MCV 106.0 H (80.0-100.0) fL RDW 20.9 H (11.5-15.5) % Plt Count 103 L (150-450) k/uL Lymphocytes # 0.2 L (1.0-4.8) k/uL Macrocytosis Marked A Sodium 134 L (137-145) mmol/L BUN 30 H (7-17) mg/dL Creatinine 4.09 H (0.52-1.04) mg/dL Glucose 118 H (74-99) mg/dL POC Glucose (mg/dL) 146 H (75-99) mg/dL Calcium 7.3 L (8.4-10.2) mg/dL Delta Bilirubin 0.5 H (0.0-0.2) mg/dL AST 37 H (14-36) U/L Alkaline Phosphatase 158 H (38-126) U/L Total Protein 5.4 L (6.3-8.2) g/dL Albumin 2.5 L (3.5-5.0) g/dL Methylmalonic Acid (<0.40) umol/L 05/29/19 Range/Units 05:55 RBC (3.80-5.40) m/uL Hgb (11.4-16.0) gm/dL Hct (34.0-46.0) % MCV (80.0-100.0) fL RDW (11.5-15.5) % Plt Count (150-450) k/uL Lymphocytes # (1.0-4.8) k/uL Macrocytosis Sodium (137-145) mmol/L BUN (7-17) mg/dL Creatinine (0.52-1.04) mg/dL Glucose (74-99) mg/dL POC Glucose (mg/dL) 139 H (75-99) mg/dL Calcium (8.4-10.2) mg/dL Delta Bilirubin (0.0-0.2) mg/dL AST (14-36) U/L Alkaline Phosphatase (38-126) U/L Total Protein (6.3-8.2) g/dL Albumin (3.5-5.0) g/dL Methylmalonic Acid (<0.40) umol/L Microbiology - Last 24 Hours (Table) 05/24/19 13:39 Blood Culture - Preliminary Blood No Growth after 96 hours Assessment and Plan Assessment: Pulmonary edema, secondary to acute renal failure needing hemodialysis Acute respiratory failure Acute GI bleed Acute blood loss anemia Acute urinary tract infection Hypotension secondary to above, Possible combined septic and hemorrhagic shock. Improved, Off pressors currently recent pneumonia and respiratory failure End-stage renal disease on dialysis, patient was started on dialysis last admission at [place] Atrial fibrillation Hypertension Hyperlipidemia CVA/TIA, with left hemiparesis Thrombocytopenia History of left breast cancer in 1997, status post breast surgery, metastatic to the spine and liver Plan: This is a pleasant 64 years old female who presents with GI bleed and hypotension with picture of shock. , transfuse blood as needed to keep hemoglobin above 7. Monitor vitals and hemoglobin. Continue with Protonix IV. we Appreciate critical care team and GI team and follow the recommendation. Nephrology consult is appreciated, continue on hemodialysis. Continue with Zosyn. Nystatin is added. Cardiology on the case however patient is off anticoagulation for her acute GI bleed. Continue with medication as above Labs and medication were reviewed.. Continue same treatment. Continue with symptomatic treatment. Resume home medication. Monitor lytes and vitals. DVT and GI prophylaxis. Further recommendations of the clinical course of the patient DVT prophylaxis: No heparin and review of GI bleed GI Prophylaxis: Protonix Prognosis is guarded
--- NOTE | 2019-05-29 11:39 | P.PN ---
Subjective Progress Note Date: 05/29/19 Principal diagnosis: Acute GI bleeding This is a 64-year-old female patient got transferred from [facility] for GI bleed and hypotension. The patient is well-known to us. In fact she was recently discharged from the hospital after being treated with a combination of medical problems including shortness of breath, sepsis, renal failure and during the course of the treatment the patient developed an acute kidney injury/ATN and she became dialysis dependent. She was undergoing dialysis on a periodic basis. She was infected with staph in the blood and enterococcus in the urine and ultimately she was stabilized and discharged. Note that the patient has metastatic breast cancer and she has also skeletal metastases from breast cancer primary. She has CVA pneumonia left-sided the body, paroxysmal atrial fibrillation and hyperlipidemia. Primary oncologist Dr. Wheat. She has known metastatic Breast Cancer. Most recently progression in spiny bone and status post radiation. Since radiation increased dysphagia, secretion, and pain. Increased Shortness of breath and chills. She has open burn from radiation. During the earlier presentation, the patient had pancytopenia related to treatment and the patient has been off treatment since. The patient has a combi nation of systolic and diastolic heart failure. She has moderate concentric LVH/hypertensive heart disease with a LV function of 45% and moderate degree of aortic sclerosis and moderate to severe aortic regurgitation and severe aortic stenosis also present on the echocardiogram that was done a few months back. She has a peak gradient across the valve of 76 mmHg and the patient also has secondary pulmonary hypertension with a right posterior systolic pressure estimated to be 73. During this current admission, hemoglobin was at 6.9. Stool for occult blood was positive. The patient presented with a BP of 77/52 and her hemoglobin was at 7.0. The patient was hypotensive and the triple-lumen catheter was established in the emergency department. The patient was started on IV fluids. The patient got transferred to the intensive care unit for further care.The chest x-ray showing acute pulmonary edema. She is currently on 4liters by nasal cannula and her pulse ox is ranging between 90-95%. Head there is a Hunter catheter in place and the patient has dark brownish chocolatey looking cloudy urine output. The patient is currently receiving a packed cell transfusion. She is also on norepinephrine infusion at 0.1 mcg/kg per minute. She is awake and alert. She states that during the last 2 sessions of hemodialysis, she became quite ill and she developed hypotension and it had to b e discontinued at the end. Her last hemodialysis session was on Sunday. Currently she is afebrile. Mental status is within normal limits. She is following commands and has secretions appropriately. No focal neurological deficits. Some trace edema in lower extremities bilaterally. On 05/25/2019 I'm seeing this patient for a follow-up. Not the patient is awake and alert and she is following commands and answering questions appropriately. She became slightly more hypoxic compared to yesterday and the patient was placed on 15 L of oxygen by nasal cannula and her pulse ox is ranging between 90-94%. Her chest x-ray still showing acute pulmonary edema. Meanwhile, the patient is still being cheered for an underlying hypotension/sepsis. She received a unit of packed RBC for suspected GI bleed. Hemoglobin today stable and as above 7, specifically at 7.2 and stable. The patient was suspected to have underlying UTI and sepsis. Urine culture sent. Blood cultures sent. She is currently on IV Zosyn. She is receiving pressors and levo fed has been weaned down considerably compared to yesterday. No evidence of any external GI bleeding. No evidence of any altered mentation. No headaches. Creatinine is at 4.2 and the BUN is 32. Her last hemodialysis session was Sunday the patient was unable to complete a full dialysis session because of hemodynamic instability. She is currently on norepinephrine infusion at 0.06 units per kilograms per minute. Potassium needs to be replaced. The fives on the case. Reevaluated today on 05/26/2019, patient remains in the ICU, she is off norepinephrine, no active GI bleeding at present, however the patient received a total of 2 units of packed RBCs since admission. Her hemoglobin this morning was 6.3, and she is in the process of receiving her second unit of packed RBCs. She was seen by gastroenterology on consultation, and I recommended conservative measures, advised that we continue broad-spectrum antibiotics for her urosepsis, and to monitor CBC on a daily basis, no plans for endoscopic intervention at this time. Seen by nephrology, and the patient is to continue hemodialysis. She does have clearly evidence of volume overload, hypertension and chronic kidney disease as well as acute blood loss anemia with hypocalcemia and hypoalbuminemia. Seen by cardiology, I recommended that we continue amiodarone, continue to hold the beta blockers also recommended cutting down amiodarone to 200 mg daily. And continue hemodialysis for her fluid overload. Today's chest x-ray was reviewed all labs were reviewed and hemoglobin again is 6.3 this morning. Electrolytes showed a low potassium of 3.1 being corrected as per p rotocol. Patient is presently off norepinephrine. Remains on antibiotics for her urosepsis. She remains on Zosyn. Urine culture is pending, blood culture is negative so far. Patient was seen today on 05/27/2019, remains in the ICU, and she was on non- rebreather mask, however I plan to switch the patient to high flow nasal cannula or possibly airvo O2 saturation remains marginal. Patient is feeling better clinically, continues to have dialysis, chest x-ray continues to show evidence of pulmonary edema. Patient remains short of breath with any activity. WBC count is 6.5 hemoglobin is 8.4 today. Received a total of 2 units of packed RBCs since admission. Patient is scheduled for dialysis today. She is off levo fed, remains on Zosyn and nystatin. Remains off anticoagulation therapy although she is in atrial fibrillation. Chest x-ray again shows evidence of pulmonary edema. Reevaluated today on 05/28/2019, remains in the ICU, presently on airvo at 95% FiO2, and high flow. Patient's O2 saturation is marginal, chest x-ray continues to show evidence of interstitial edema. Patient is to undergo hemodialysis again today and ultrafiltration. No major exchange administrator the last few days, patient will be receiving hemodialysis on a daily basis for the next few days. Chest x-ray again continues to show interstitial edema. And questionable underlying infiltrates. WBC count is 7.9 hemoglobin 8.7 and a close are normal BUN is 44 creatinine 5.69. Reevaluated today on 05/29/2019, patient remains in the ICU. Remains on relatively high FiO2 and high O2 flow on airvo. Her O2 saturations fluctuating all over the place from high 80s to 100%. Patient is now receiving hemodialysis, and has been dialyzed yesterday. Patient usually improves significantly after hemodialysis, but even after 1 day her pulmonary status gets worse. Patient continues to have occasional cough, shortness of breath, denies any nausea vomiting no melena or hematemesis. Continues to have tachypnea and t achycardia. Labs were all reviewed chest x-ray continues to show interstitial edema, seen by infectious disease yesterday, did not seem to be concerned about Mary in the urine. Remains on steroids and she remains on antibiotics and/Zosyn. Objective - Vital Signs Vital signs: Vital Signs Temp 97.6 F 05/29/19 08:00 Pulse 76 05/29/19 11:00 Resp 22 05/29/19 11:00 BP 125/74 05/29/19 11:00 Pulse Ox 97 05/29/19 11:00 Intake & Output 05/28/19 05/29/19 05/29/19 18:59 06:59 18:59 Intake Total 280 220 155 Output Total 3044 0 Balance -2764 220 155 Weight 129.3 kg Intake: IV 280 220 155 NS 80 120 30 Piperacillin-Tazobactam 3 100 100 25 .375 gm In Sodium Chloride 0.9% 100 ml @ 25 mls/hr IVPB Q12HR [facility] Rx #:[id number] Sodium Ferric Gluconat- 100 100 Sucrose 125 mg In Sodium Chloride 0.9% 100 ml @ 100 mls/hr IVPB DAILY [facility] Rx#:[id number] Output: Urine 44 0 Hemodialysis 3000 Other: Voiding Method Indwelling Catheter # Bowel Movements 1 2 1 - Exam Physical Exam: Revealed 64-year-old female, on airvo, FiO2 at 90%. And flow over 60 L/m Head: Atraumatic, normocephalic. HEENT:[Neck is supple.] [No neck masses.] [No thyromegaly.] [No JVD.] PERRLA, EOMI, no icterus. Chest: Crackles and rhonchi noted bilaterally. Some wheezing on forced expiratory maneuver noted. Symmetrical chest expansion.] Cardiac Exam: Irregular irregular rhythm. [Normal S1 and S2, no S3 gallop, no murmur.] Abdomen: [Obese, Soft, nontender, no megaly, no rebound, no guarding, normal bowel sounds.] Extremities: [No clubbing, 1+ bipedal edema, no cyanosis.] Good pulses bilaterally. Neurological Exam: [No focal neurologic deficit.] Alert oriented 3. Psychiatric: Normal mood, affect and normal mental status examination. Skin: No rashes. - Labs CBC & Chem 7: 05/29/19 05:18 05/29/19 05:18 Labs: Abnormal Lab Results - Last 24 Hours (Table) 05/26/19 05/28/19 05/28/19 Range/Units 10:41 12:07 18:02 RBC (3.80-5.40) m/uL Hgb (11.4-16.0) gm/dL Hct (34.0-46.0) % MCV (80.0-100.0) fL RDW (11.5-15.5) % Plt Count (150-450) k/uL Lymphocytes # (1.0-4.8) k/uL Macrocytosis Sodium (137-145) mmol/L BUN (7-17) mg/dL Creatinine (0.52-1.04) mg/dL Glucose (74-99) mg/dL POC Glucose (mg/dL) 105 H 150 H (75-99) mg/dL Calcium (8.4-10.2) mg/dL Delta Bilirubin (0.0-0.2) mg/dL AST (14-36) U/L Alkaline Phosphatase (38-126) U/L Total Protein (6.3-8.2) g/dL Albumin (3.5-5.0) g/dL Methylmalonic Acid 0.56 H (<0.40) umol/L 05/28/19 05/29/19 05/29/19 Range/Units 23:29 05:18 05:18 RBC 2.56 L (3.80-5.40) m/uL Hgb 8.4 L (11.4-16.0) gm/dL Hct 27.1 L (34.0-46.0) % MCV 106.0 H (80.0-100.0) fL RDW 20.9 H (11.5-15.5) % Plt Count 103 L (150-450) k/uL Lymphocytes # 0.2 L (1.0-4.8) k/uL Macrocytosis Marked A Sodium 134 L (137-145) mmol/L BUN 30 H (7-17) mg/dL Creatinine 4.09 H (0.52-1.04) mg/dL Glucose 118 H (74-99) mg/dL POC Glucose (mg/dL) 146 H (75-99) mg/dL Calcium 7.3 L (8.4-10.2) mg/dL Delta Bilirubin 0.5 H (0.0-0.2) mg/dL AST 37 H (14-36) U/L Alkaline Phosphatase 158 H (38-126) U/L Total Protein 5.4 L (6.3-8.2) g/dL Albumin 2.5 L (3.5-5.0) g/dL Methylmalonic Acid (<0.40) umol/L 05/29/19 Range/Units 05:55 RBC (3.80-5.40) m/uL Hgb (11.4-16.0) gm/dL Hct (34.0-46.0) % MCV (80.0-100.0) fL RDW (11.5-15.5) % Plt Count (150-450) k/uL Lymphocytes # (1.0-4.8) k/uL Macrocytosis Sodium (137-145) mmol/L BUN (7-17) mg/dL Creatinine (0.52-1.04) mg/dL Glucose (74-99) mg/dL POC Glucose (mg/dL) 139 H (75-99) mg/dL Calcium (8.4-10.2) mg/dL Delta Bilirubin (0.0-0.2) mg/dL AST (14-36) U/L Alkaline Phosphatase (38-126) U/L Total Protein (6.3-8.2) g/dL Albumin (3.5-5.0) g/dL Methylmalonic Acid (<0.40) umol/L Microbiology - Last 24 Hours (Table) 05/24/19 13:39 Blood Culture - Preliminary Blood No Growth after 96 hours Assessment and Plan Assessment: Impression: 1 hypotension, multifactorial, as noted on previous notes. 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 Which is a combination of aortic valve disease and GI bleeding. 3 suspect urosepsis, urine is positive for Mary 4 GI bleeding exact etiology is not clear but could be as noted above. 5 severe aortic stenosis and aortic regurgitation 6 acute on chronic pulmonary edema and history of LV dysfunction/systolic in nature. 7 end-stage renal disease, on hemodialysis 8 obesity BMI of 49.8 9 history of CVA and left-sided weakness 10 metastatic breast cancer treated by chemotherapy and radiation therapy for her skeletal metastasis 11 hyperlipidemia 12 acute candiduria , did not seem to be significant as per infectious disease on the case. Not recommending fluconazole Recommendation: Continue to monitor the patient in ICU. Continue antibiotics, Continue hemodialysis. Continue bronchodilators. Continue Solu-Medrol. Continue GI and DVT prophylaxis. Continue to monitor labs on a daily basis including CBC and basic metabolic profile. Continue patient on high flow oxygen, titrate as tolerated and keep O2 sat above 90% Overall prognosis remains extremely poor, patient may eventually require intubation and mechanical ventilation, and she will definitely be almost impossible to wean if intubated. She may eventually require tracheostomy and p lacement of a long-term facility. We'll continue to follow Time with Patient: Less than 30
[2019-05-29 12:17] LABS: Glucose,Whole Blood 119 mg/dL (75-99)
[2019-05-29] MEDS: SODIUM CHLORIDE 0.9% 1,000 ML IV SCH (13:23)
--- NOTE | 2019-05-29 16:52 | PN ---
PROGRESS NOTE Patient is seen for followup for acute kidney injury, currently hemodialysis-dependent. Patient is seen on dialysis. She is tolerating her treatment well. She has an indwelling Hunter catheter with no significant urine output noted. Her breathing is improved after dialysis yesterday. On examination today, blood pressure this morning was 118/56, heart rate 80 per minute. Patient is afebrile. EXAMINATION OF THE HEART: S1 and S2. EXAMINATION OF LUNGS: Decreased breath sounds at bases. ABDOMEN: Soft, obese. Examination of lower extremities shows trace edema bilaterally. BUSINESS PROGRAMMER exam is grossly intact. Labs show hemoglobin 8.4, sodium 134, potassium 3.6, serum creatinine 4.09. ASSESSMENT: 1. Acute kidney injury, hemodialysis-dependent, normally maintained on a Sunday, Sunday, Sunday schedule. We will dialyze the patient today as well as tomorrow, which is her regular day. 2. Volume overload, somewhat improved. Continue with daily dialysis for now. Patient does not have significant urine output. She is maintained on Lasix, which I will continue for now. 3. Hypoxic respiratory failure secondary to fluid overload. 4. History of atrial fibrillation with controlled ventricular response. 5. Anemia with no active bleeding noted. Iron deficiency was noted. Patient is maintained on IV iron. She is also maintained on Aranesp. 6. Hypotension with no evidence of adrenal insufficiency on her last admission, currently maintained on midodrine, which we will continue. 7. Obesity. 8. Recent sepsis with urinary tract infection and pneumonia. PLAN: Repeat hemodialysis in a.m. MMODL / IJN: [id number] /
[2019-05-29 18:13] LABS: Glucose,Whole Blood 184 mg/dL (75-99)
[2019-05-29 19:06] LABS: Glucose,Whole Blood 181 mg/dL (75-99)
[2019-05-29 21:29] LABS: Glucose,Whole Blood 113 mg/dL (75-99)
[2019-05-29] MEDS: INSULIN ASPART (NovoLOG) 100 UNIT/ML VIAL SQ SCH (21:37)
--- NOTE | 2019-05-29 22:56 | PN ---
PROGRESS NOTE DATE OF SERVICE: 05/29/2019. REASON FOR FOLLOWUP: Candiduria. INTERVAL HISTORY: The patient is currently afebrile. Her Hunter catheter was discontinued yesterday. Patient currently with no urinary symptoms. No chest pain. Her breathing has improved after having dialysis with removal of 2 L of fluid. No nausea, no vomiting and no abdominal pain. No diarrhea. PHYSICAL EXAMINATION: Blood pressure was 109/54 with a pulse of 86, temperature 98.1. She is 99% on high-flow oxygen. General description is a middle-aged female lying in bed in no distress. RESPIRATORY SYSTEM: Unlabored breathing with decreased breath sounds at the base. HEART: S1, S2. Regular rate and rhythm. ABDOMEN: Soft. No tenderness. LABORATORY DATA: Hemoglobin 8.4, white count 8.1. BUN of 30, creatinine 4.09. DIAGNOSTIC IMPRESSION AND PLAN: 1. Patient with candiduria, likely colonization in this patient with renal failure who hardly makes any urine. Hunter catheter has been discontinued. No need for fungal. 2. Patient with respiratory distress, more likely secondary to underlying fluid overload and cardiorenal condition. Pneumonia less likely. Consider discontinuing Zosyn and monitor patient closely off antibiotic therapy. MMODL / IJN: [id number] /
[2019-05-30] MEDS: ALBUTEROL NEBULIZED 2.5 MG/3 ML INHALATION PRN ×6 (04:19→23:13)
[2019-05-30 05:38] LABS: Albumin 2.6 g/dL (3.5-5.0); Bilirubin, Delta 0.5 mg/dL (0.0-0.2); Bilirubin,Unconjugated 0.3 mg/dL (0.0-1.1); Calcium 7.2 mg/dL (8.4-10.2); Potassium 3.9 mmol/L (3.5-5.1); Total Bilirubin 0.8 mg/dL (0.2-1.3); Total Protein 5.5 g/dL (6.3-8.2)
[2019-05-30 05:39] LABS: Anisocytosis Moderate; HCT 26.6 % (34.0-46.0); HGB 8.5 gm/dL (11.4-16.0); Hypochromasia Moderate; MCHC 32.1 g/dL (31.0-37.0); MCV 102.9 fL (80.0-100.0); Mean Platelet Volume 8.4; Platelet Count 115 k/uL (150-450); Poikilocytosis Moderate; RBC 2.58 m/uL (3.80-5.40); WBC 7.7 k/uL (3.8-10.6)
[2019-05-30 05:47] LABS: Macrocytosis Marked
[2019-05-30] MEDS: SUCRALFATE 1 GM TAB PO SCH ×4 (06:49→21:10)
[2019-05-30] MEDS: methylPREDNISolone SOD SUCCI 40 MG/ML 1 ML VIAL IV SCH ×4 (06:49→23:26)
[2019-05-30] MEDS: MIDODRINE 5 MG TAB PO SCH ×2 (06:49→17:55)
[2019-05-30] MEDS: INSULIN ASPART (NovoLOG) 100 UNIT/ML VIAL SQ SCH ×4 (06:49→21:10)
[2019-05-30 06:59] LABS: Glucose,Whole Blood 128 mg/dL (75-99)
[2019-05-30] MEDS: SENNOSIDES-DOCUSATE SODIUM 1 EACH TAB PO SCH (08:03)
--- NOTE | 2019-05-30 08:14 | PN ---
PROGRESS NOTE Mrs. Lopez is a lady with end-stage renal disease on hemodialysis with anemia. She is maintaining sinus rhythm, hemodynamically stable. She has multiple comorbid conditions including metastatic breast cancer. Vital signs are stable. Blood pressure is good. She is in sinus rhythm at a rate of 64 beats per minute. PHYSICAL EXAMINATION: Physical exam revealed JVD of 1 cm. No carotid bruit. S1-S2 heard normally, short systolic murmur audible. Lungs revealed improved air entry. Abdomen and lower extremity exam is unchanged. PLAN: Plan is to continue current medications and I will see her as needed. MMODL / IJN: [id number] /
[2019-05-30] MEDS: SODIUM FERRIC GLUCONAT-SUCROSE 125 MG in SODIUM CHLORIDE 0.9% 100 ML IVPB SCH (08:18)
[2019-05-30] MEDS: PIPERACILLIN-TAZOBACTAM 3.375 GM in SODIUM CHLORIDE 0.9% 100 ML IVPB SCH ×2 (10:02→21:10)
--- NOTE | 2019-05-30 10:15 | XR ---
EXAMINATION TYPE: XR chest 1V portable DATE OF EXAM: 05/30/2019 COMPARISON: 05/29/2019 INDICATION: CHF TECHNIQUE: Single frontal view of the chest is obtained. FINDINGS: The heart size is large. The pulmonary vasculature is prominent. Mild focal infiltrate is in the base of the right upper lobe. There are some increased lung markings at the right base. Findings can be compatible with a typical pulmonary edema. Catheter is present on the right with the tips in the right atrium. This is stable. IMPRESSION: 1. Findings suggestive for congestive heart failure. Clinical correlation and follow-up is recommendmounika chung
[2019-05-30] MEDS: NYSTATIN 100,000 UNIT/ML SUSP 500,000 UNIT/5 ML CUP PO SCH ×4 (11:03→21:09)
--- NOTE | 2019-05-30 11:35 | P.PN ---
Subjective Progress Note Date: 05/30/19 Principal diagnosis: Acute GI bleeding This is a 64-year-old female patient got transferred from [facility] for GI bleed and hypotension. The patient is well-known to us. In fact she was recently discharged from the hospital after being treated with a combination of medical problems including shortness of breath, sepsis, renal failure and during the course of the treatment the patient developed an acute kidney injury/ATN and she became dialysis dependent. She was undergoing dialysis on a periodic basis. She was infected with staph in the blood and enterococcus in the urine and ultimately she was stabilized and discharged. Note that the patient has metastatic breast cancer and she has also skeletal metastases from breast cancer primary. She has CVA pneumonia left-sided the body, paroxysmal atrial fibrillation and hyperlipidemia. Primary oncologist Dr. Wheat. She has known metastatic Breast Cancer. Most recently progression in spiny bone and status post radiation. Since radiation increased dysphagia, secretion, and pain. Increased Shortness of breath and chills. She has open burn from radiation. During the earlier presentation, the patient had pancytopenia related to treatment and the patient has been off treatment since. The patient has a combi nation of systolic and diastolic heart failure. She has moderate concentric LVH/hypertensive heart disease with a LV function of 45% and moderate degree of aortic sclerosis and moderate to severe aortic regurgitation and severe aortic stenosis also present on the echocardiogram that was done a few months back. She has a peak gradient across the valve of 76 mmHg and the patient also has secondary pulmonary hypertension with a right posterior systolic pressure estimated to be 73. During this current admission, hemoglobin was at 6.9. Stool for occult blood was positive. The patient presented with a BP of 77/52 and her hemoglobin was at 7.0. The patient was hypotensive and the triple-lumen catheter was established in the emergency department. The patient was started on IV fluids. The patient got transferred to the intensive care unit for further care.The chest x-ray showing acute pulmonary edema. She is currently on 4liters by nasal cannula and her pulse ox is ranging between 90-95%. Head there is a Hunter catheter in place and the patient has dark brownish chocolatey looking cloudy urine output. The patient is currently receiving a packed cell transfusion. She is also on norepinephrine infusion at 0.1 mcg/kg per minute. She is awake and alert. She states that during the last 2 sessions of hemodialysis, she became quite ill and she developed hypotension and it had to b e discontinued at the end. Her last hemodialysis session was on Sunday. Currently she is afebrile. Mental status is within normal limits. She is following commands and has secretions appropriately. No focal neurological deficits. Some trace edema in lower extremities bilaterally. On 05/25/2019 I'm seeing this patient for a follow-up. Not the patient is awake and alert and she is following commands and answering questions appropriately. She became slightly more hypoxic compared to yesterday and the patient was placed on 15 L of oxygen by nasal cannula and her pulse ox is ranging between 90-94%. Her chest x-ray still showing acute pulmonary edema. Meanwhile, the patient is still being cheered for an underlying hypotension/sepsis. She received a unit of packed RBC for suspected GI bleed. Hemoglobin today stable and as above 7, specifically at 7.2 and stable. The patient was suspected to have underlying UTI and sepsis. Urine culture sent. Blood cultures sent. She is currently on IV Zosyn. She is receiving pressors and levo fed has been weaned down considerably compared to yesterday. No evidence of any external GI bleeding. No evidence of any altered mentation. No headaches. Creatinine is at 4.2 and the BUN is 32. Her last hemodialysis session was Sunday the patient was unable to complete a full dialysis session because of hemodynamic instability. She is currently on norepinephrine infusion at 0.06 units per kilograms per minute. Potassium needs to be replaced. The fives on the case. Reevaluated today on 05/26/2019, patient remains in the ICU, she is off norepinephrine, no active GI bleeding at present, however the patient received a total of 2 units of packed RBCs since admission. Her hemoglobin this morning was 6.3, and she is in the process of receiving her second unit of packed RBCs. She was seen by gastroenterology on consultation, and I recommended conservative measures, advised that we continue broad-spectrum antibiotics for her urosepsis, and to monitor CBC on a daily basis, no plans for endoscopic intervention at this time. Seen by nephrology, and the patient is to continue hemodialysis. She does have clearly evidence of volume overload, hypertension and chronic kidney disease as well as acute blood loss anemia with hypocalcemia and hypoalbuminemia. Seen by cardiology, I recommended that we continue amiodarone, continue to hold the beta blockers also recommended cutting down amiodarone to 200 mg daily. And continue hemodialysis for her fluid overload. Today's chest x-ray was reviewed all labs were reviewed and hemoglobin again is 6.3 this morning. Electrolytes showed a low potassium of 3.1 being corrected as per p rotocol. Patient is presently off norepinephrine. Remains on antibiotics for her urosepsis. She remains on Zosyn. Urine culture is pending, blood culture is negative so far. Patient was seen today on 05/27/2019, remains in the ICU, and she was on non- rebreather mask, however I plan to switch the patient to high flow nasal cannula or possibly airvo O2 saturation remains marginal. Patient is feeling better clinically, continues to have dialysis, chest x-ray continues to show evidence of pulmonary edema. Patient remains short of breath with any activity. WBC count is 6.5 hemoglobin is 8.4 today. Received a total of 2 units of packed RBCs since admission. Patient is scheduled for dialysis today. She is off levo fed, remains on Zosyn and nystatin. Remains off anticoagulation therapy although she is in atrial fibrillation. Chest x-ray again shows evidence of pulmonary edema. Reevaluated today on 05/28/2019, remains in the ICU, presently on airvo at 95% FiO2, and high flow. Patient's O2 saturation is marginal, chest x-ray continues to show evidence of interstitial edema. Patient is to undergo hemodialysis again today and ultrafiltration. No major pattern changer the last few days, patient will be receiving hemodialysis on a daily basis for the next few days. Chest x-ray again continues to show interstitial edema. And questionable underlying infiltrates. WBC count is 7.9 hemoglobin 8.7 and a close are normal BUN is 44 creatinine 5.69. Reevaluated today on 05/29/2019, patient remains in the ICU. Remains on relatively high FiO2 and high O2 flow on airvo. Her O2 saturations fluctuating all over the place from high 80s to 100%. Patient is now receiving hemodialysis, and has been dialyzed yesterday. Patient usually improves significantly after hemodialysis, but even after 1 day her pulmonary status gets worse. Patient continues to have occasional cough, shortness of breath, denies any nausea vomiting no melena or hematemesis. Continues to have tachypnea and t achycardia. Labs were all reviewed chest x-ray continues to show interstitial edema, seen by infectious disease yesterday, did not seem to be concerned about Mary in the urine. Remains on steroids and she remains on antibiotics and/Zosyn. Homero was reevaluated today on 05/30/2019, remains in the intensive care unit, continues to require high FiO2 and high flow. Patient improves during hemodialysis, and shortly after hemodialysis. But her O2 saturations go back to the high 80s and low 90s in spite of 90% FiO2. Chest x-ray continues to show evidence of diffuse interstitial edema. CBC showed hemoglobin of 8.5 WBC count of 7.7 and electrolytes are normal BUN is 35 creatinine 3.98. Overall the patient is not making significant improvement whatsoever over the last 1 week. Today I discussed the CODE STATUS again with the patient, she seems to be inclined to consider DO NOT RESUSCITATE CODE STATUS, however she would like to discuss this with her daughter sometime today. Patient is maximized on treatment, and I have a strong feeling that she will eventually deteriorate and require intubation and mechanical ventilation, but she doesn't need it at this point yet. Objective - Vital Signs Vital signs: Vital Signs Temp 97.6 F 05/30/19 08:00 Pulse 77 05/30/19 11:29 Resp 24 05/30/19 11:00 BP 128/62 05/30/19 11:00 Pulse Ox 100 05/30/19 11:00 Intake & Output 05/29/19 05/30/19 05/30/19 18:59 06:59 18:59 Intake Total 630 380 280 Output Total 3000 1 Balance -2370 380 279 Weight 129.3 kg 127 kg Intake: IV 270 230 160 NS 70 130 10 Piperacillin-Tazobactam 3 100 100 50 .375 gm In Sodium Chloride 0.9% 100 ml @ 25 mls/hr IVPB Q12HR [facility] Rx #:[id number] Sodium Ferric Gluconat- 100 100 Sucrose 125 mg In Sodium Chloride 0.9% 100 ml @ 100 mls/hr IVPB DAILY [facility] Rx#:[id number] Oral 360 150 120 Output: Stool 1 Hemodialysis 3000 Other: # Bowel Movements 1 - Exam Physical Exam: Revealed 64-year-old female, on airvo, FiO2 at 90%. Head: Atraumatic, normocephalic. HEENT:[Neck is supple.] [No neck masses.] [No thyromegaly.] [No JVD.] PERRLA, EOMI, no icterus. Chest: Crackles and rhonchi noted bilaterally. Some wheezing on forced expiratory maneuver noted. Symmetrical chest expansion.] Cardiac Exam: Irregular irregular rhythm. [Normal S1 and S2, no S3 gallop, no murmur.] Abdomen: [Obese, Soft, nontender, no megaly, no rebound, no guarding, normal bowel sounds.] Extremities: [No clubbing, 1+ bipedal edema, no cyanosis.] Good pulses bilaterally. Neurological Exam: [No focal neurologic deficit.] Alert oriented 3. Psychiatric: Normal mood, affect and normal mental status examination. Skin: No rashes. - Labs CBC & Chem 7: 05/30/19 05:10 05/30/19 05:10 Labs: Abnormal Lab Results - Last 24 Hours (Table) 05/26/19 05/29/19 05/29/19 Range/Units 10:41 12:06 18:01 RBC (3.80-5.40) m/uL Hgb (11.4-16.0) gm/dL Hct (34.0-46.0) % MCV (80.0-100.0) fL RDW (11.5-15.5) % Plt Count (150-450) k/uL Macrocytosis Sodium (137-145) mmol/L BUN (7-17) mg/dL Creatinine (0.52-1.04) mg/dL Glucose (74-99) mg/dL POC Glucose (mg/dL) 119 H 184 H (75-99) mg/dL Calcium (8.4-10.2) mg/dL Erythropoietin 74.38 H (2.00-30.00) mIU/mL Delta Bilirubin (0.0-0.2) mg/dL Alkaline Phosphatase (38-126) U/L Total Protein (6.3-8.2) g/dL Albumin (3.5-5.0) g/dL 05/29/19 05/29/19 05/30/19 Range/Units 18:55 21:18 05:10 RBC 2.58 L (3.80-5.40) m/uL Hgb 8.5 L (11.4-16.0) gm/dL Hct 26.6 L (34.0-46.0) % MCV 102.9 H (80.0-100.0) fL RDW 20.0 H (11.5-15.5) % Plt Count 115 L (150-450) k/uL Macrocytosis Marked A Sodium (137-145) mmol/L BUN (7-17) mg/dL Creatinine (0.52-1.04) mg/dL Glucose (74-99) mg/dL POC Glucose (mg/dL) 181 H 113 H (75-99) mg/dL Calcium (8.4-10.2) mg/dL Erythropoietin (2.00-30.00) mIU/mL Delta Bilirubin (0.0-0.2) mg/dL Alkaline Phosphatase (38-126) U/L Total Protein (6.3-8.2) g/dL Albumin (3.5-5.0) g/dL 05/30/19 05/30/19 Range/Units 05:10 06:48 RBC (3.80-5.40) m/uL Hgb (11.4-16.0) gm/dL Hct (34.0-46.0) % MCV (80.0-100.0) fL RDW (11.5-15.5) % Plt Count (150-450) k/uL Macrocytosis Sodium 134 L (137-145) mmol/L BUN 35 H (7-17) mg/dL Creatinine 3.98 H (0.52-1.04) mg/dL Glucose 110 H (74-99) mg/dL POC Glucose (mg/dL) 128 H (75-99) mg/dL Calcium 7.2 L (8.4-10.2) mg/dL Erythropoietin (2.00-30.00) mIU/mL Delta Bilirubin 0.5 H (0.0-0.2) mg/dL Alkaline Phosphatase 142 H (38-126) U/L Total Protein 5.5 L (6.3-8.2) g/dL Albumin 2.6 L (3.5-5.0) g/dL Microbiology - Last 24 Hours (Table) 05/24/19 13:39 Blood Culture - Preliminary Blood No Growth after 120 hours Assessment and Plan Assessment: Impression: 1 hypotension, multifactorial, as noted on previous notes. 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 Which is a combination of aortic valve disease and GI bleeding. 3 suspect urosepsis, urine is positive for Mary 4 GI bleeding exact etiology is not clear but could be as noted above. 5 severe aortic stenosis and aortic regurgitation 6 acute on chronic pulmonary edema and history of LV dysfunction/systolic in nature. 7 end-stage renal disease, on hemodialysis 8 obesity BMI of 49.8 9 history of CVA and left-sided weakness 10 metastatic breast cancer treated by chemotherapy and radiation therapy for her skeletal metastasis. I'm quite concerned about the possibility of lymphangitic carcinomatosis involving the lungs, however the patient is not a good candidate for bronchoscopy and biopsy at this point. 11 hyperlipidemia 12 acute candiduria , did not seem to be significant as per infectious disease on the case. Not recommending fluconazole Recommendation: Continue to monitor the patient in ICU. Continue antibiotics, Continue hemodialysis. Continue bronchodilators. Continue Solu-Medrol. Continue GI and DVT prophylaxis. Continue to monitor labs on a daily basis including CBC and basic metabolic profile. Continue patient on high flow oxygen, titrate as tolerated and keep O2 sat above 90% Overall prognosis remains extremely poor, I had a long discussion with the patient today about CODE STATUS, made aware that her condition is extremely poor, and she will eventually require intubation and mechanical ventilation. Patient is going to discuss the CODE STATUS she seems to be inclined to consider DO NOT RESUSCITATE CODE STATUS but she would like to discuss it with her shanell butt. We will continue to follow. Time with Patient: Less than 30
[2019-05-30] MEDS: METOPROLOL TARTRATE 25 MG TAB PO SCH ×2 (11:43→21:10)
[2019-05-30] MEDS: GABAPENTIN 300 MG CAP PO SCH ×2 (11:43→21:09)
[2019-05-30] MEDS: AMIODARONE 200 MG TAB PO SCH (11:43)
[2019-05-30] MEDS: CYANOCOBALAMIN 500 MCG TAB PO SCH (11:43)
[2019-05-30] MEDS: FLUTICASONE 50MCG/SPRAY NASAL 16GM EA NOSTRIL SCH (11:44)
[2019-05-30] MEDS: PANTOPRAZOLE 40 MG/10 ML VIAL IV SCH ×2 (11:44→21:10)
[2019-05-30 11:49] LABS: Glucose,Whole Blood 104 mg/dL (75-99)
[2019-05-30] MEDS: SODIUM CHLORIDE 0.9% 1,000 ML IV SCH (13:46)
[2019-05-30 14:31] LABS: Hemoglobin A1C 4.5 % (4.0-6.0)
--- NOTE | 2019-05-30 14:37 | PN ---
PROGRESS NOTE Patient is seen for followup for acute kidney injury, currently hemodialysis dependent. The patient is being dialyzed daily for volume overload. We are planning for about 3 L of ultrafiltration today. PHYSICAL EXAMINATION: On examination this morning, blood pressure was 123/59, heart rate of about 86 per minute. Patient is afebrile. EXAMINATION OF THE HEART: S1, S2. EXAMINATION OF LUNGS: Decreased breath sounds at bases. ABDOMEN: Soft, obese. Examination of lower extremities shows trace edema bilaterally. TECHNOLOGY ASSISTANT EXAM: Grossly intact. LABS: Labs show sodium 134, potassium 3.9, BUN 35, creatinine 3.98, hemoglobin 8.5 g/dL. ASSESSMENT: 1. Acute kidney injury, hemodialysis dependent. Continue with daily dialysis for now secondary to volume overload. 2. Volume overload, currently improving. 3. Hypoxic respiratory failure associated with pulmonary edema and fluid overload, slowly improving. 4. Chronic hypotension. No evidence of adrenal insufficiency on the last admission, maintained on midodrine. 5. Anemia, with no active bleeding noted. Severe iron deficiency was noted. The patient is maintained on IV iron as well as Aranesp. Hemoglobin is increasing. 6. Status post recent sepsis from bacteremia with Staphylococcus and Enterococcus urinary tract infection, status post antibiotics. 7. Atrial fibrillation. The patient's heart rate is controlled. She is maintained on oral midodrine currently. PLAN: Repeat hemodialysis in a.m. goal UF about 3 to 3.5 L as tolerated. MMODL / IJN: [id number] /
--- NOTE | 2019-05-30 16:51 | P.PN ---
Subjective Progress Note Date: 05/30/19 Principal diagnosis: Acute pulmonary edema/acute respiratory failure Acute renal failure/hemodialysis Acute GI bleed/acute blood loss anemia UTI 64 years old female with past medical history of hyperlipidemia, hypertension, CVA/TIA, metastatic left breast cancer in 1997 and the spine cancer in 2018, mostly its metastasis from her breast cancer, end-stage renal disease on dialys is, atrial fibrillation with RVR, she was recently discharged from the hospital for recent pneumonia and respiratory failure Patient was transferred from [facility] for GI hemorrhage and hypote nsion. At the F she was confused and patient was found to be hypotensive and hypoxic with oxygen saturations at 78%, on her way to the hospital patient started waking up with supplemental oxygen. At first patient was sent to [facility] before she was transferred to the current hospital 05/30/2019, remains in the intensive care unit, continues to require high FiO2 and high flow. Patient improves during hemodialysis, and shortly after hemodialysis. But her O2 saturations go back to the high 80s and low 90s in spite of 90% FiO2. Chest x-ray continues to show evidence of diffuse interstitial edema. CBC showed hemoglobin of 8.5 WBC count of 7.7 and electrolytes are normal BUN is 35 creatinine 3.98. Overall the patient is not making significant improvement whatsoever over the last 1 week. Today I discussed the CODE STATUS again with the patient, she seems to be inclined to consider DO NOT RESUSCITATE CODE STATUS, however she would like to discuss this with her daughter sometime today. Patient is maximized on treatment, and I have a strong feeling that she will eventually deteriorate and require intubation and mechanical ventilation, but she doesn't need it at this point yet. Objective - Vital Signs Vital signs: Vital Signs Temp 98.0 F 05/30/19 12:20 Pulse 72 05/30/19 14:00 Resp 19 05/30/19 14:00 BP 95/50 05/30/19 14:00 Pulse Ox 100 05/30/19 14:00 Intake & Output 05/29/19 05/30/19 05/30/19 18:59 06:59 18:59 Intake Total 630 380 340 Output Total 3000 3001 Balance -0300 380 -7791 Weight 129.3 kg 127 kg Intake: IV 270 230 220 NS 70 130 20 Piperacillin-Tazobactam 3 100 100 100 .375 gm In Sodium Chloride 0.9% 100 ml @ 25 mls/hr IVPB Q12HR [facility] Rx #:[id number] Sodium Ferric Gluconat- 100 100 Sucrose 125 mg In Sodium Chloride 0.9% 100 ml @ 100 mls/hr IVPB DAILY [facility] Rx#:[id number] Oral 360 150 120 Output: Stool 1 Hemodialysis 3000 3000 Other: # Bowel Movements 1 - Exam GENERAL: The patient is alert and oriented x3, not in any acute distress. Obese HEENT: Pupils are round and equally reacting to light. EOMI. No scleral icterus. No conjunctival pallor. Normocephalic, atraumatic. No pharyngeal erythema. No thyromegaly. CARDIOVASCULAR: S1 and S2 present. No murmurs, rubs, or gallops. -PULMONARY: Chest is clear to auscultation, bilateral basal crepitation -ABDOMEN: Soft, nontender, nondistended, normoactive bowel sounds. No palpable organomegaly. Hunter catheter is in place with light color on brown urine MUSCULOSKELETAL: No joint swelling or deformity. EXTREMITIES: No cyanosis, clubbing, or pedal edema. NEUROLOGICAL: Gross neurological examination did not reveal any focal deficits. SKIN: No rashes. No petechiae - Labs CBC & Chem 7: 05/30/19 05:10 05/30/19 05:10 Labs: Abnormal Lab Results - Last 24 Hours (Table) 05/29/19 05/29/19 05/29/19 Range/Units 18:01 18:55 21:18 RBC (3.80-5.40) m/uL Hgb (11.4-16.0) gm/dL Hct (34.0-46.0) % MCV (80.0-100.0) fL RDW (11.5-15.5) % Plt Count (150-450) k/uL Macrocytosis Sodium (137-145) mmol/L BUN (7-17) mg/dL Creatinine (0.52-1.04) mg/dL Glucose (74-99) mg/dL POC Glucose (mg/dL) 184 H 181 H 113 H (75-99) mg/dL Calcium (8.4-10.2) mg/dL Delta Bilirubin (0.0-0.2) mg/dL Alkaline Phosphatase (38-126) U/L Total Protein (6.3-8.2) g/dL Albumin (3.5-5.0) g/dL 05/30/19 05/30/19 05/30/19 Range/Units 05:10 05:10 06:48 RBC 2.58 L (3.80-5.40) m/uL Hgb 8.5 L (11.4-16.0) gm/dL Hct 26.6 L (34.0-46.0) % MCV 102.9 H (80.0-100.0) fL RDW 20.0 H (11.5-15.5) % Plt Count 115 L (150-450) k/uL Macrocytosis Marked A Sodium 134 L (137-145) mmol/L BUN 35 H (7-17) mg/dL Creatinine 3.98 H (0.52-1.04) mg/dL Glucose 110 H (74-99) mg/dL POC Glucose (mg/dL) 128 H (75-99) mg/dL Calcium 7.2 L (8.4-10.2) mg/dL Delta Bilirubin 0.5 H (0.0-0.2) mg/dL Alkaline Phosphatase 142 H (38-126) U/L Total Protein 5.5 L (6.3-8.2) g/dL Albumin 2.6 L (3.5-5.0) g/dL 05/30/19 Range/Units 11:37 RBC (3.80-5.40) m/uL Hgb (11.4-16.0) gm/dL Hct (34.0-46.0) % MCV (80.0-100.0) fL RDW (11.5-15.5) % Plt Count (150-450) k/uL Macrocytosis Sodium (137-145) mmol/L BUN (7-17) mg/dL Creatinine (0.52-1.04) mg/dL Glucose (74-99) mg/dL POC Glucose (mg/dL) 104 H (75-99) mg/dL Calcium (8.4-10.2) mg/dL Delta Bilirubin (0.0-0.2) mg/dL Alkaline Phosphatase (38-126) U/L Total Protein (6.3-8.2) g/dL Albumin (3.5-5.0) g/dL Microbiology - Last 24 Hours (Table) 05/24/19 13:39 Blood Culture - Preliminary Blood No Growth after 120 hours Assessment and Plan Assessment: Pulmonary edema, secondary to acute renal failure needing hemodialysis Acute respiratory failure Acute GI bleed Acute blood loss anemia Acute urinary tract infection Hypotension secondary to above, Possible combined septic and hemorrhagic shock. Improved, Off pressors currently recent pneumonia and respiratory failure End-stage renal disease on dialysis, patient was started on dialysis last admis ebony at [facility] Atrial fibrillation Hypertension Hyperlipidemia CVA/TIA, with left hemiparesis Thrombocytopenia History of left breast cancer in 1997, status post breast surgery, metastatic to the spine and liver Plan: This is a pleasant 64 years old female who presents with GI bleed and hypotension with picture of shock. , transfuse blood as needed to keep hemoglobi n above 7. Monitor vitals and hemoglobin. Continue with Protonix IV. we Appreciate critical care team and GI team and follow the recommendation. Nephrology consult is appreciated, continue on hemodialysis. Continue with Zosyn. Nystatin is added. Cardiology on the case however patient is off an ticoagulation for her acute GI bleed. Continue with medication as above Labs and medication were reviewed.. Continue same treatment. Continue with symptomatic treatment. Resume home medication. Monitor lytes and vitals. DVT and GI prophylaxis. Further recommendations of the clinical course of the patient DVT prophylaxis: No heparin and review of GI bleed GI Prophylaxis: Protonix Prognosis is guarded
[2019-05-30 17:34] LABS: Glucose,Whole Blood 123 mg/dL (75-99)
--- NOTE | 2019-05-30 18:52 | PN ---
PROGRESS NOTE DATE OF SERVICE: 05/30/2019. REASON FOR FOLLOWUP: Candiduria. INTERVAL HISTORY: The patient is currently afebrile. She has been breathing more comfortably. She did have 3 L of fluid removed during dialysis and is scheduled for repeat dialysis tomorrow. No chest pain. Minimal cough. No sputum. No nausea or vomiting. No abdominal pain. No diarrhea. No urinary symptoms. PHYSICAL EXAMINATION: Blood pressure 115/56, pulse of 68, temperature 98.7. She is 98% on high-flow oxygen. General description is a middle-aged female lying in bed in no distress. RESPIRATORY SYSTEM: Unlabored breathing. Clear to auscultation anteriorly. HEART: S1, S2. Regular rate and rhythm. ABDOMEN: Soft. No tenderness. LABS: Hemoglobin 8.5, white count 7.7, BUN of 35, creatinine 3.98. DIAGNOSTIC IMPRESSION AND PLAN: Patient with candiduria related to her Hunter catheter, which has been discontinued, with no evidence of any fungal infection. No need for any Diflucan. At the same time, no evidence of any bacterial infection. Zosyn can be discontinued. ID Service will see the patient as needed. MMODL / IJN: [id number] /
[2019-05-30 20:36] LABS: Glucose,Whole Blood 132 mg/dL (75-99)
[2019-05-30 21:28] LABS: Glucose,Whole Blood 123 mg/dL (75-99)
[2019-05-31] MEDS: ALBUTEROL NEBULIZED 2.5 MG/3 ML INHALATION PRN ×4 (03:36→23:18)
[2019-05-31 04:51] LABS: Glucose,Whole Blood 121 mg/dL (75-99)
[2019-05-31 05:04] LABS: Anisocytosis Moderate; HCT 28.3 % (34.0-46.0); HGB 8.5 gm/dL (11.4-16.0); Hypochromasia Moderate; MCH 31.5 pg (25.0-35.0); MCV 104.9 fL (80.0-100.0); Macrocytosis Marked; Mean Platelet Volume 9.1; Platelet Count 143 k/uL (150-450); Poikilocytosis Slight; RDW 20.3 % (11.5-15.5); WBC 8.2 k/uL (3.8-10.6)
[2019-05-31 05:05] LABS: Calcium 7.5 mg/dL (8.4-10.2); Potassium 4.1 mmol/L (3.5-5.1)
[2019-05-31 05:36] LABS: Band Neutrophils % 3 %; Lymphocytes # (M) 0.25 k/uL (1.0-4.8); Metamyelocytes # (M) 0.08 k/uL (0); Metamyelocytes % 1 %; Monocytes # (M) 0.41 k/uL (0-1.0); Neutrophils % (M) 88 %; Nucleated Red Blood Cells 0 /100 WBC (0-0); Total Cells Counted 200
[2019-05-31 05:37] LABS: Anisocytosis (M) Present
[2019-05-31] MEDS: AMIODARONE 200 MG TAB PO SCH (06:00)
--- NOTE | 2019-05-31 06:00 | XR ---
EXAMINATION TYPE: XR chest 1V portable DATE OF EXAM: 05/31/2019 HISTORY: chf. REFERENCE: Previous study dated 05/30/2019. FINDINGS: There is a large-bore, double-lumen catheter in place via a right internal jugular approach . The right atrium. The heart is enlarged. There is interstitial alveolar airspace disease. I cannot exclude small effusi ons. IMPRESSION: CONTINUING CHANGES OF CONGESTIVE HEART FAILURE.
[2019-05-31] MEDS ORDERED: DILTIAZEM DRIP BOLUS FROM BAG 1 MG SOLN IV ONE (06:15)
[2019-05-31] MEDS: DILTIAZEM 125 MG in SODIUM CHLORIDE 0.9% 100 ML IV SCH ×2 (06:38→23:47)
[2019-05-31] MEDS: MIDODRINE 5 MG TAB PO SCH ×2 (06:39→18:06)
[2019-05-31] MEDS: methylPREDNISolone SOD SUCCI 40 MG/ML 1 ML VIAL IV SCH ×4 (06:39→23:11)
[2019-05-31] MEDS: SUCRALFATE 1 GM TAB PO SCH ×4 (06:39→21:06)
[2019-05-31] MEDS: INSULIN ASPART (NovoLOG) 100 UNIT/ML VIAL SQ SCH ×4 (06:59→21:20)
[2019-05-31 07:21] LABS: Glucose,Whole Blood 133 mg/dL (75-99)
[2019-05-31] MEDS: PIPERACILLIN-TAZOBACTAM 3.375 GM in SODIUM CHLORIDE 0.9% 100 ML IVPB SCH ×2 (08:00→21:20)
[2019-05-31] MEDS: PANTOPRAZOLE 40 MG/10 ML VIAL IV SCH ×2 (08:01→21:20)
[2019-05-31] MEDS: FLUTICASONE 50MCG/SPRAY NASAL 16GM EA NOSTRIL SCH (08:02)
[2019-05-31] MEDS: CYANOCOBALAMIN 500 MCG TAB PO SCH (08:02)
[2019-05-31] MEDS: GABAPENTIN 300 MG CAP PO SCH ×2 (08:02→21:20)
[2019-05-31] MEDS: METOPROLOL TARTRATE 25 MG TAB PO SCH ×2 (08:03→21:20)
[2019-05-31] MEDS: SENNOSIDES-DOCUSATE SODIUM 1 EACH TAB PO SCH (08:03)
[2019-05-31] MEDS: NYSTATIN 100,000 UNIT/ML SUSP 500,000 UNIT/5 ML CUP PO SCH ×4 (08:03→21:06)
--- NOTE | 2019-05-31 10:30 | PN ---
PROGRESS NOTE Mrs. Lopez has went into atrial fibrillation this morning. She is hemodynamically stable. Quite short of breath, requiring high-flow oxygen. She has breast cancer with metastasis and paroxysmal atrial fibrillation and anemia. I am recommending that we will start a small dose of intravenous Cardizem to control the rate. Vital signs are stable. Heart rate is in the 120s. S1, S2 heard normally. Irregular rate and rhythm noted. Short systolic murmur noted. Lungs reveal diminished air entry. Abdomen and lower extremity exam is unchanged. We will continue amiodarone and try IV Cardizem. Prognosis remains guarded. MMODL / IJN: [id number] /
[2019-05-31] MEDS: SODIUM FERRIC GLUCONAT-SUCROSE 125 MG in SODIUM CHLORIDE 0.9% 100 ML IVPB SCH (11:56)
[2019-05-31 12:00] LABS: Glucose,Whole Blood 124 mg/dL (75-99)
[2019-05-31] MEDS: LORazepam 2 MG/ML INJ IV PRN ×3 (12:26→23:11)
--- NOTE | 2019-05-31 13:19 | P.PN ---
Subjective Progress Note Date: 05/31/19 Principal diagnosis: Acute GI bleeding This is a 64-year-old female patient got transferred from [facility] for GI bleed and hypotension. The patient is well-known to us. In fact she was recently discharged from the hospital after being treated with a combination of medical problems including shortness of breath, sepsis, renal failure and during the course of the treatment the patient developed an acute kidney injury/ATN and she became dialysis dependent. She was undergoing dialysis on a periodic basis. She was infected with staph in the blood and enterococcus in the urine and ultimately she was stabilized and discharged. Note that the patient has metastatic breast cancer and she has also skeletal metastases from breast cancer primary. She has CVA pneumonia left-sided the body, paroxysmal atrial fibrillation and hyperlipidemia. Primary oncologist Dr. Wheat. She has known metastatic Breast Cancer. Most recently progression in spiny bone and status post radiation. Since radiation increased dysphagia, secretion, and pain. Increased Shortness of breath and chills. She has open burn from radiation. During the earlier presentation, the patient had pancytopenia related to treatment and the patient has been off treatment since. The patient has a combi nation of systolic and diastolic heart failure. She has moderate concentric LVH/hypertensive heart disease with a LV function of 45% and moderate degree of aortic sclerosis and moderate to severe aortic regurgitation and severe aortic stenosis also present on the echocardiogram that was done a few months back. She has a peak gradient across the valve of 76 mmHg and the patient also has secondary pulmonary hypertension with a right posterior systolic pressure estimated to be 73. During this current admission, hemoglobin was at 6.9. Stool for occult blood was positive. The patient presented with a BP of 77/52 and her hemoglobin was at 7.0. The patient was hypotensive and the triple-lumen catheter was established in the emergency department. The patient was started on IV fluids. The patient got transferred to the intensive care unit for further care.The chest x-ray showing acute pulmonary edema. She is currently on 4liters by nasal cannula and her pulse ox is ranging between 90-95%. Head there is a Hunter catheter in place and the patient has dark brownish chocolatey looking cloudy urine output. The patient is currently receiving a packed cell transfusion. She is also on norepinephrine infusion at 0.1 mcg/kg per minute. She is awake and alert. She states that during the last 2 sessions of hemodialysis, she became quite ill and she developed hypotension and it had to b e discontinued at the end. Her last hemodialysis session was on Sunday. Currently she is afebrile. Mental status is within normal limits. She is following commands and has secretions appropriately. No focal neurological deficits. Some trace edema in lower extremities bilaterally. On 05/25/2019 I'm seeing this patient for a follow-up. Not the patient is awake and alert and she is following commands and answering questions appropriately. She became slightly more hypoxic compared to yesterday and the patient was placed on 15 L of oxygen by nasal cannula and her pulse ox is ranging between 90-94%. Her chest x-ray still showing acute pulmonary edema. Meanwhile, the patient is still being cheered for an underlying hypotension/sepsis. She received a unit of packed RBC for suspected GI bleed. Hemoglobin today stable and as above 7, specifically at 7.2 and stable. The patient was suspected to have underlying UTI and sepsis. Urine culture sent. Blood cultures sent. She is currently on IV Zosyn. She is receiving pressors and levo fed has been weaned down considerably compared to yesterday. No evidence of any external GI bleeding. No evidence of any altered mentation. No headaches. Creatinine is at 4.2 and the BUN is 32. Her last hemodialysis session was Sunday the patient was unable to complete a full dialysis session because of hemodynamic instability. She is currently on norepinephrine infusion at 0.06 units per kilograms per minute. Potassium needs to be replaced. The fives on the case. Reevaluated today on 05/26/2019, patient remains in the ICU, she is off norepinephrine, no active GI bleeding at present, however the patient received a total of 2 units of packed RBCs since admission. Her hemoglobin this morning was 6.3, and she is in the process of receiving her second unit of packed RBCs. She was seen by gastroenterology on consultation, and I recommended conservative measures, advised that we continue broad-spectrum antibiotics for her urosepsis, and to monitor CBC on a daily basis, no plans for endoscopic intervention at this time. Seen by nephrology, and the patient is to continue hemodialysis. She does have clearly evidence of volume overload, hypertension and chronic kidney disease as well as acute blood loss anemia with hypocalcemia and hypoalbuminemia. Seen by cardiology, I recommended that we continue amiodarone, continue to hold the beta blockers also recommended cutting down amiodarone to 200 mg daily. And continue hemodialysis for her fluid overload. Today's chest x-ray was reviewed all labs were reviewed and hemoglobin again is 6.3 this morning. Electrolytes showed a low potassium of 3.1 being corrected as per p rotocol. Patient is presently off norepinephrine. Remains on antibiotics for her urosepsis. She remains on Zosyn. Urine culture is pending, blood culture is negative so far. Patient was seen today on 05/27/2019, remains in the ICU, and she was on non- rebreather mask, however I plan to switch the patient to high flow nasal cannula or possibly airvo O2 saturation remains marginal. Patient is feeling better clinically, continues to have dialysis, chest x-ray continues to show evidence of pulmonary edema. Patient remains short of breath with any activity. WBC count is 6.5 hemoglobin is 8.4 today. Received a total of 2 units of packed RBCs since admission. Patient is scheduled for dialysis today. She is off levo fed, remains on Zosyn and nystatin. Remains off anticoagulation therapy although she is in atrial fibrillation. Chest x-ray again shows evidence of pulmonary edema. Reevaluated today on 05/28/2019, remains in the ICU, presently on airvo at 95% FiO2, and high flow. Patient's O2 saturation is marginal, chest x-ray continues to show evidence of interstitial edema. Patient is to undergo hemodialysis again today and ultrafiltration. No major pattern changer and repairer the last few days, patient will be receiving hemodialysis on a daily basis for the next few days. Chest x-ray again continues to show interstitial edema. And questionable underlying infiltrates. WBC count is 7.9 hemoglobin 8.7 and a close are normal BUN is 44 creatinine 5.69. Reevaluated today on 05/29/2019, patient remains in the ICU. Remains on relatively high FiO2 and high O2 flow on airvo. Her O2 saturations fluctuating all over the place from high 80s to 100%. Patient is now receiving hemodialysis, and has been dialyzed yesterday. Patient usually improves significantly after hemodialysis, but even after 1 day her pulmonary status gets worse. Patient continues to have occasional cough, shortness of breath, denies any nausea vomiting no melena or hematemesis. Continues to have tachypnea and t achycardia. Labs were all reviewed chest x-ray continues to show interstitial edema, seen by infectious disease yesterday, did not seem to be concerned about Mary in the urine. Remains on steroids and she remains on antibiotics and/Zosyn. A was reevaluated today on 05/30/2019, remains in the intensive care unit, continues to require high FiO2 and high flow. Patient improves during hemodialysis, and shortly after hemodialysis. But her O2 saturations go back to the high 80s and low 90s in spite of 90% FiO2. Chest x-ray continues to show evidence of diffuse interstitial edema. CBC showed hemoglobin of 8.5 WBC count of 7.7 and electrolytes are normal BUN is 35 creatinine 3.98. Overall the patient is not making significant improvement whatsoever over the last 1 week. Today I discussed the CODE STATUS again with the patient, she seems to be inclined to consider DO NOT RESUSCITATE CODE STATUS, however she would like to discuss this with her daughter sometime today. Patient is maximized on treatment, and I have a strong feeling that she will eventually deteriorate and require intubation and mechanical ventilation, but she doesn't need it at this point yet. Patient was reevaluated today on 05/31/2019, remains in the ICU, remains on high flow FiO2, had hemodialysis again today, O2 saturation is marginal. Since yesterday, the patient discussed her condition with daughter as expected, and she is now clearly requesting DO NOT RESUSCITATE CODE STATUS. Patient continues to have interstitial edema, continues to have shortness of breath with any activity, even at rest. Electrolytes are normal CBC is normal hemoglobin is 8.5. Chest x-ray is not showing much improvement with her interstitial edema. I did discuss the issue of hospice with the patient today, she is not yet ready to accept hospice, but she seems to be inclined to consider seriously comfort care measures. Her decision is not yet fully made. And she is discussing all these issues with her daughter at bedside. The daughter was updated on her condition, and she is very well aware of her poor prognosis. Patient is also very well aware of her poor prognosis. Objective - Vital Signs Vital signs: Vital Signs Temp 98.0 F 05/31/19 10:31 Pulse 86 05/31/19 11:10 Resp 28 H 05/31/19 11:00 BP 111/40 05/31/19 11:00 Pulse Ox 98 05/31/19 11:00 Intake & Output 05/30/19 05/31/19 05/31/19 18:59 06:59 18:59 Intake Total 500 610 60 Output Total 3001 0 3000 Balance -2501 610 -2940 Weight 125.3 kg Intake: IV 260 180 60 NS 60 80 60 Piperacillin-Tazobactam 3 100 100 .375 gm In Sodium Chloride 0.9% 100 ml @ 25 mls/hr IVPB Q12HR [facility] Rx #:[id number] Sodium Ferric Gluconat- 100 Sucrose 125 mg In Sodium Chloride 0.9% 100 ml @ 100 mls/hr IVPB DAILY [facility] Rx#:[id number] Oral 240 430 Output: Urine 0 0 Stool 1 Hemodialysis 3000 3000 Other: Voiding Method Incontinent Incontinent # Bowel Movements 1 - Exam Physical Exam: Revealed 64-year-old female, on airvo, FiO2, maximize Head: Atraumatic, normocephalic. HEENT:[Neck is supple.] [No neck masses.] [No thyromegaly.] [No JVD.] PERRLA, EOMI, no icterus. Chest: Crackles and rhonchi noted bilaterally. Some wheezing on forced expiratory maneuver noted. Symmetrical chest expansion.] Cardiac Exam: Irregular irregular rhythm. [Normal S1 and S2, no S3 gallop, no murmur.] Abdomen: [Obese, Soft, nontender, no megaly, no rebound, no guarding, normal bowel sounds.] Extremities: [No clubbing, 1+ bipedal edema, no cyanosis.] Good pulses bilaterally. Neurological Exam: [No focal neurologic deficit.] Alert oriented 3. Psychiatric: Normal mood, affect and normal mental status examination. Skin: No rashes. - Labs CBC & Chem 7: 05/31/19 04:30 05/31/19 04:30 Labs: Abnormal Lab Results - Last 24 Hours (Table) 05/30/19 05/30/19 05/30/19 Range/Units 17:23 20:25 21:07 RBC (3.80-5.40) m/uL Hgb (11.4-16.0) gm/dL Hct (34.0-46.0) % MCV (80.0-100.0) fL MCHC (31.0-37.0) g/dL RDW (11.5-15.5) % Plt Count (150-450) k/uL Lymphocytes # (Manual) (1.0-4.8) k/uL Metamyelocytes # (Man) (0) k/uL Macrocytosis BUN (7-17) mg/dL Creatinine (0.52-1.04) mg/dL Glucose (74-99) mg/dL POC Glucose (mg/dL) 123 H 132 H 123 H (75-99) mg/dL Calcium (8.4-10.2) mg/dL 05/31/19 05/31/19 05/31/19 Range/Units 04:28 04:30 04:30 RBC 2.70 L (3.80-5.40) m/uL Hgb 8.5 L (11.4-16.0) gm/dL Hct 28.3 L (34.0-46.0) % MCV 104.9 H (80.0-100.0) fL MCHC 30.0 L (31.0-37.0) g/dL RDW 20.3 H (11.5-15.5) % Plt Count 143 L (150-450) k/uL Lymphocytes # (Manual) 0.25 L (1.0-4.8) k/uL Metamyelocytes # (Man) 0.08 H (0) k/uL Macrocytosis Marked A BUN 37 H (7-17) mg/dL Creatinine 4.02 H (0.52-1.04) mg/dL Glucose 123 H (74-99) mg/dL POC Glucose (mg/dL) 121 H (75-99) mg/dL Calcium 7.5 L (8.4-10.2) mg/dL 05/31/19 05/31/19 Range/Units 06:59 11:48 RBC (3.80-5.40) m/uL Hgb (11.4-16.0) gm/dL Hct (34.0-46.0) % MCV (80.0-100.0) fL MCHC (31.0-37.0) g/dL RDW (11.5-15.5) % Plt Count (150-450) k/uL Lymphocytes # (Manual) (1.0-4.8) k/uL Metamyelocytes # (Man) (0) k/uL Macrocytosis BUN (7-17) mg/dL Creatinine (0.52-1.04) mg/dL Glucose (74-99) mg/dL POC Glucose (mg/dL) 133 H 124 H (75-99) mg/dL Calcium (8.4-10.2) mg/dL Microbiology - Last 24 Hours (Table) 05/24/19 13:39 Blood Culture - Final Blood No Growth after 144 hours Assessment and Plan Assessment: Impression: 1 hypotension, multifactorial, as noted on previous notes. 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 Which is a combination of aortic valve disease and GI bleeding. 3 suspect urosepsis, urine is positive for Mary 4 GI bleeding exact etiology is not clear but could be as noted above. 5 severe aortic stenosis and aortic regurgitation 6 acute on chronic pulmonary edema and history of LV dysfunction/systolic in nature. 7 end-stage renal disease, on hemodialysis 8 obesity BMI of 49.8 9 history of CVA and left-sided weakness 10 metastatic breast cancer treated by chemotherapy and radiation therapy for her skeletal metastasis. I'm quite concerned about the possibility of lymphangitic carcinomatosis involving the lungs, however the patient is not a good candidate for bronchoscopy and biopsy at this point. 11 hyperlipidemia 12 acute candiduria , did not seem to be significant as per infectious disease on the case. Not recommending fluconazole Recommendation: Continue to monitor the patient in ICU. Continue antibiotics, Continue hemodialysis. Continue bronchodilators. Continue Solu-Medrol. Continue GI and DVT prophylaxis. Continue to monitor labs on a daily basis including CBC and basic metabolic profile. Continue patient on high flow oxygen, titrate as tolerated and keep O2 sat above 90% The patient and her daughter were both updated on her condition, presently the patient requests DO NOT RESUSCITATE CODE STATUS, and she may eventually consider comfort care measures. Still hesitant to accept hospice referral. We'll continue to follow. Time with Patient: Less than 30
--- NOTE | 2019-05-31 13:39 | PN ---
PROGRESS NOTE Patient is seen for followup for acute kidney injury. She was dialyzed this morning. However, patient has decided to proceed with hospice care measures. PHYSICAL EXAMINATION: On examination today, blood pressure was 111/40, heart rate of 74 per minute. O2 sats about 98%. EXAMINATION OF THE HEART: S1, S2. EXAMINATION OF THE LUNGS: Decreased breath sounds at bases. ABDOMEN: Soft, distended, obese. Examination of lower extremities shows trace edema bilaterally. Chronic skin changes are noted. LABS: Labs show hemoglobin 8.5, sodium 138, potassium 4.1, BUN 37, serum creatinine 4.02. ASSESSMENT: 1. Acute kidney injury, hemodialysis dependent, status post hemodialysis today. 2. Volume overload, slowly improved, but patient remains volume overloaded. 3. Status post sepsis. 4. Generalized debility. 5. Atrial fibrillation with rapid ventricular response this morning, maintained on amiodarone. 6. Anemia multifactorial including severe iron deficiency, maintained on IV iron. PLAN: Patient has decided to proceed with hospice care measures. We will hold off dialysis. MMODL / IJN: [id number] /
--- NOTE | 2019-05-31 15:34 | P.PN ---
Subjective Progress Note Date: 05/31/19 Principal diagnosis: Acute pulmonary edema/acute respiratory failure Acute renal failure/hemodialysis Acute GI bleed/acute blood loss anemia UTI 64 years old female with past medical history of hyperlipidemia, hypertension, CVA/TIA, metastatic left breast cancer in 1998 and the spine cancer in 2018, mostly its metastasis from her breast cancer, end-stage renal disease on dialys is, atrial fibrillation with RVR, she was recently discharged from the hospital for recent pneumonia and respiratory failure Patient was transferred from [facility] for GI hemorrhage and hypote nsion. At the [facility] she was confused and patient was found to be hypotensive and hypoxic with oxygen saturations at 78%, on her way to the hospital patient started waking up with supplemental oxygen. At first patient was sent to [facility] before she was transferred to the current hospital 05/30/2019, remains in the intensive care unit, continues to require high FiO2 and high flow. Patient improves during hemodialysis, and shortly after hemodialysis. But her O2 saturations go back to the high 80s and low 90s in spite of 90% FiO2. Chest x-ray continues to show evidence of diffuse interstitial edema. CBC showed hemoglobin of 8.5 WBC count of 7.7 and electrolytes are normal BUN is 35 creatinine 3.98. Overall the patient is not making significant improvement whatsoever over the last 1 week. Today I discussed the CODE STATUS again with the patient, she seems to be inclined to consider DO NOT RESUSCITATE CODE STATUS, however she would like to discuss this with her daughter sometime today. Patient is maximized on treatment, and I have a strong feeling that she will eventually deteriorate and require intubation and mechanical ventilation, but she doesn't need it at this point yet. 05/31/2019 Patient is seen and evaluated in ICU with multiple family members in the room; patient continues to have requirements for high flow oxygen; speaks in 2-3 word sentences; has been made DO NOT RESUSCITATE; patient reports that she might have dialysis again tomorrow morning Patient continues to have interstitial edema, continues to have shortness of breath with any activity, even at rest. Electrolytes are normal CBC is normal hemoglobin is 8.5. Chest x-ray is not showing much improvement with her interstitial edema. I did discuss the issue of hospice with the patient today, she is not yet ready to accept hospice, but she seems to be inclined to consider seriously comfort care measures. Objective - Vital Signs Vital signs: Vital Signs Temp 97.9 F 05/31/19 12:00 Pulse 80 05/31/19 14:00 Resp 29 H 05/31/19 14:00 BP 127/63 05/31/19 14:00 Pulse Ox 96 05/31/19 14:00 Intake & Output 05/30/19 05/31/19 05/31/19 18:59 06:59 18:59 Intake Total 500 610 80 Output Total 3001 0 3000 Balance -2501 610 -2920 Weight 125.3 kg Intake: IV 260 180 80 NS 60 80 80 Piperacillin-Tazobactam 3 100 100 .375 gm In Sodium Chloride 0.9% 100 ml @ 25 mls/hr IVPB Q12HR [facility] Rx #:[id number] Sodium Ferric Gluconat- 100 Sucrose 125 mg In Sodium Chloride 0.9% 100 ml @ 100 mls/hr IVPB DAILY [facility] Rx#:[id number] Oral 240 430 Output: Urine 0 0 Stool 1 Hemodialysis 3000 3000 Other: Voiding Method Incontinent Incontinent # Bowel Movements 1 - Exam GENERAL: The patient is alert and oriented x3, not in any acute distress. Obese HEENT: Pupils are round and equally reacting to light. EOMI. No scleral icterus. No conjunctival pallor. Normocephalic, atraumatic. No pharyngeal erythema. No thyromegaly. CARDIOVASCULAR: S1 and S2 present. No murmurs, rubs, or gallops. -PULMONARY: Chest is clear to auscultation, bilateral basal crepitation -ABDOMEN: Soft, nontender, nondistended, normoactive bowel sounds. No palpable organomegaly. Hunter catheter is in place with light color on brown urine MUSCULOSKELETAL: No joint swelling or deformity. EXTREMITIES: No cyanosis, clubbing, or pedal edema. NEUROLOGICAL: Gross neurological examination did not reveal any focal deficits. SKIN: No rashes. No petechiae - Labs CBC & Chem 7: 05/31/19 04:30 05/31/19 04:30 Labs: Abnormal Lab Results - Last 24 Hours (Table) 05/30/19 05/30/19 05/30/19 Range/Units 17:23 20:25 21:07 RBC (3.80-5.40) m/uL Hgb (11.4-16.0) gm/dL Hct (34.0-46.0) % MCV (80.0-100.0) fL MCHC (31.0-37.0) g/dL RDW (11.5-15.5) % Plt Count (150-450) k/uL Lymphocytes # (Manual) (1.0-4.8) k/uL Metamyelocytes # (Man) (0) k/uL Macrocytosis BUN (7-17) mg/dL Creatinine (0.52-1.04) mg/dL Glucose (74-99) mg/dL POC Glucose (mg/dL) 123 H 132 H 123 H (75-99) mg/dL Calcium (8.4-10.2) mg/dL 05/31/19 05/31/19 05/31/19 Range/Units 04:28 04:30 04:30 RBC 2.70 L (3.80-5.40) m/uL Hgb 8.5 L (11.4-16.0) gm/dL Hct 28.3 L (34.0-46.0) % MCV 104.9 H (80.0-100.0) fL MCHC 30.0 L (31.0-37.0) g/dL RDW 20.3 H (11.5-15.5) % Plt Count 143 L (150-450) k/uL Lymphocytes # (Manual) 0.25 L (1.0-4.8) k/uL Metamyelocytes # (Man) 0.08 H (0) k/uL Macrocytosis Marked A BUN 37 H (7-17) mg/dL Creatinine 4.02 H (0.52-1.04) mg/dL Glucose 123 H (74-99) mg/dL POC Glucose (mg/dL) 121 H (75-99) mg/dL Calcium 7.5 L (8.4-10.2) mg/dL 05/31/19 05/31/19 Range/Units 06:59 11:48 RBC (3.80-5.40) m/uL Hgb (11.4-16.0) gm/dL Hct (34.0-46.0) % MCV (80.0-100.0) fL MCHC (31.0-37.0) g/dL RDW (11.5-15.5) % Plt Count (150-450) k/uL Lymphocytes # (Manual) (1.0-4.8) k/uL Metamyelocytes # (Man) (0) k/uL Macrocytosis BUN (7-17) mg/dL Creatinine (0.52-1.04) mg/dL Glucose (74-99) mg/dL POC Glucose (mg/dL) 133 H 124 H (75-99) mg/dL Calcium (8.4-10.2) mg/dL Microbiology - Last 24 Hours (Table) 05/24/19 13:39 Blood Culture - Final Blood No Growth after 144 hours Assessment and Plan Assessment: Pulmonary edema, secondary to acute renal failure needing hemodialysis Acute respiratory failure Acute GI bleed Acute blood loss anemia Acute urinary tract infection Hypotension secondary to above, Possible combined septic and hemorrhagic shock. Improved, Off pressors currently recent pneumonia and respiratory failure End-stage renal disease on dialysis, patient was started on dialysis last admission at [facility] Atrial fibrillation Hypertension Hyperlipidemia CVA/TIA, with left hemiparesis Thrombocytopenia History of left breast cancer in 1997, status post breast surgery, metastatic to the spine and liver Plan: This is a pleasant 64 years old female who presents with GI bleed and hypotension with picture of shock. , transfuse blood as needed to keep hemoglobin above 7. Monitor vitals and hemoglobin. Continue with Protonix IV. we Appreciate critical care team and GI team and follow the recommendation. Nephrology consult is appreciated, continue on hemodialysis. Continue with Zosyn. Nystatin is added. Cardiology on the case however patient is off anticoagulation for her acute GI bleed. Continue with medication as above Labs and medication were reviewed.. Continue same treatment. Continue with symptomatic treatment. Resume home medication. Monitor lytes and vitals. DVT and GI prophylaxis. Further recommendations of the clinical course of the patient DVT prophylaxis: No heparin and review of GI bleed GI Prophylaxis: Protonix Prognosis is guarded Time with Patient: Greater than 30
[2019-05-31] MEDS: SODIUM CHLORIDE 0.9% 1,000 ML IV SCH (15:47)
[2019-05-31 17:17] LABS: Glucose,Whole Blood 112 mg/dL (75-99)
[2019-05-31 21:04] LABS: Glucose,Whole Blood 145 mg/dL (75-99)
--- NOTE | 2019-05-31 23:54 | XR ---
EXAMINATION TYPE: XR chest 1V portable DATE OF EXAM: 05/31/2019 COMPARISON: Today HISTORY: Line placement TECHNIQUE: Single frontal view of the chest is obtained. FINDINGS: There is right-sided central venous catheter with tip over the right atrium. There is mild to moderate pulmonary edema. There are interstitial pulmonary infiltrates. There are chest leads. IMPRESSION: pulmonary edema unchanged and could relate to RDS..
[2019-06-01] MEDS: MIDODRINE 5 MG TAB PO SCH ×3 (00:59→17:48)
[2019-06-01] MEDS: LORazepam 2 MG/ML INJ IV PRN ×3 (03:44→23:46)
[2019-06-01 04:48] LABS: Anisocytosis Moderate; Basophils # (A) 0.1 k/uL (0-0.2); Basophils % (A) 1 %; Eosinophils % (A) 0 %; HCT 29.4 % (34.0-46.0); HGB 8.9 gm/dL (11.4-16.0); Hypochromasia Moderate; Lymphocytes # (A) 0.1 k/uL (1.0-4.8); Lymphocytes % (A) 1 %; MCHC 30.3 g/dL (31.0-37.0); MCV 105.7 fL (80.0-100.0); Mean Platelet Volume 9.2; Monocytes # (A) 0.5 k/uL (0-1.0); Monocytes % (A) 5 %; Neutrophils # (A) 10.1 k/uL (1.3-7.7); Neutrophils % (A) 92 %; Platelet Count 159 k/uL (150-450); Poikilocytosis Slight; RBC 2.79 m/uL (3.80-5.40); RDW 20.1 % (11.5-15.5)
[2019-06-01 05:03] LABS: Macrocytosis Marked
[2019-06-01 05:11] LABS: Calcium 7.3 mg/dL (8.4-10.2); Potassium 4.2 mmol/L (3.5-5.1)
[2019-06-01] MEDS: SUCRALFATE 1 GM TAB PO SCH ×4 (06:32→20:22)
[2019-06-01] MEDS: INSULIN ASPART (NovoLOG) 100 UNIT/ML VIAL SQ SCH ×4 (06:39→20:57)
[2019-06-01] MEDS: methylPREDNISolone SOD SUCCI 40 MG/ML 1 ML VIAL IV SCH ×4 (06:39→23:44)
[2019-06-01 06:50] LABS: Glucose,Whole Blood 134 mg/dL (75-99)
--- NOTE | 2019-06-01 06:59 | XR ---
EXAMINATION TYPE: XR chest 1V portable DATE OF EXAM: 06/01/2019 HISTORY: chf. REFERENCE: Previous study dated 05/31/2019. FINDINGS: A large-bore, double-lumen catheter is in place via a right internal jugular approach. Its tip is in the right atrium. The heart is mildly prominent. There is vascular congestion and interstitial change. There are small, bilateral effusions. The overall appearance is very similar to previous. IMPRESSION: CONTINUING CHANGES OF CONGESTIVE HEART FAILURE.
[2019-06-01] MEDS: ALBUTEROL NEBULIZED 2.5 MG/3 ML INHALATION PRN ×4 (07:39→19:24)
[2019-06-01] MEDS: AMIODARONE 200 MG TAB PO SCH (08:32)
[2019-06-01] MEDS: PANTOPRAZOLE 40 MG/10 ML VIAL IV SCH ×2 (08:32→20:37)
[2019-06-01] MEDS: CYANOCOBALAMIN 500 MCG TAB PO SCH (08:32)
[2019-06-01] MEDS: METOPROLOL TARTRATE 25 MG TAB PO SCH ×2 (08:32→20:38)
[2019-06-01] MEDS: SODIUM FERRIC GLUCONAT-SUCROSE 125 MG in SODIUM CHLORIDE 0.9% 100 ML IVPB SCH (08:32)
[2019-06-01] MEDS: GABAPENTIN 300 MG CAP PO SCH ×2 (08:33→20:38)
[2019-06-01] MEDS: SENNOSIDES-DOCUSATE SODIUM 1 EACH TAB PO SCH (08:33)
[2019-06-01] MEDS: NYSTATIN 100,000 UNIT/ML SUSP 500,000 UNIT/5 ML CUP PO SCH ×4 (08:33→20:57)
[2019-06-01] MEDS: FLUTICASONE 50MCG/SPRAY NASAL 16GM EA NOSTRIL SCH (08:33)
[2019-06-01 11:53] LABS: Glucose,Whole Blood 110 mg/dL (75-99)
--- NOTE | 2019-06-01 12:05 | P.PN ---
Subjective Progress Note Date: 06/01/19 Principal diagnosis: Acute GI bleeding This is a 64-year-old female patient got transferred from [facility] for GI bleed and hypotension. The patient is well-known to us. In fact she was recently discharged from the hospital after being treated with a combination of medical problems including shortness of breath, sepsis, renal failure and during the course of the treatment the patient developed an acute kidney injury/ATN and she became dialysis dependent. She was undergoing dialysis on a periodic basis. She was infected with staph in the blood and enterococcus in the urine and ultimately she was stabilized and discharged. Note that the patient has metastatic breast cancer and she has also skeletal metastases from breast cancer primary. She has CVA pneumonia left-sided the body, paroxysmal atrial fibrillation and hyperlipidemia. Primary oncologist Dr. Wheat. She has known metastatic Breast Cancer. Most recently progression in spiny bone and status post radiation. Since radiation increased dysphagia, secretion, and pain. Increased Shortness of breath and chills. She has open burn from radiation. During the earlier presentation, the patient had pancytopenia related to treatment and the patient has been off treatment since. The patient has a combi nation of systolic and diastolic heart failure. She has moderate concentric LVH/hypertensive heart disease with a LV function of 45% and moderate degree of aortic sclerosis and moderate to severe aortic regurgitation and severe aortic stenosis also present on the echocardiogram that was done a few months back. She has a peak gradient across the valve of 76 mmHg and the patient also has secondary pulmonary hypertension with a right posterior systolic pressure estimated to be 73. During this current admission, hemoglobin was at 6.9. Stool for occult blood was positive. The patient presented with a BP of 77/52 and her hemoglobin was at 7.0. The patient was hypotensive and the triple-lumen catheter was established in the emergency department. The patient was started on IV fluids. The patient got transferred to the intensive care unit for further care.The chest x-ray showing acute pulmonary edema. She is currently on 4liters by nasal cannula and her pulse ox is ranging between 90-95%. Head there is a Hunter catheter in place and the patient has dark brownish chocolatey looking cloudy urine output. The patient is currently receiving a packed cell transfusion. She is also on norepinephrine infusion at 0.1 mcg/kg per minute. She is awake and alert. She states that during the last 2 sessions of hemodialysis, she became quite ill and she developed hypotension and it had to b e discontinued at the end. Her last hemodialysis session was on Sunday. Currently she is afebrile. Mental status is within normal limits. She is following commands and has secretions appropriately. No focal neurological deficits. Some trace edema in lower extremities bilaterally. On 05/25/2019 I'm seeing this patient for a follow-up. Not the patient is awake and alert and she is following commands and answering questions appropriately. She became slightly more hypoxic compared to yesterday and the patient was placed on 15 L of oxygen by nasal cannula and her pulse ox is ranging between 90-94%. Her chest x-ray still showing acute pulmonary edema. Meanwhile, the patient is still being cheered for an underlying hypotension/sepsis. She received a unit of packed RBC for suspected GI bleed. Hemoglobin today stable and as above 7, specifically at 7.2 and stable. The patient was suspected to have underlying UTI and sepsis. Urine culture sent. Blood cultures sent. She is currently on IV Zosyn. She is receiving pressors and levo fed has been weaned down considerably compared to yesterday. No evidence of any external GI bleeding. No evidence of any altered mentation. No headaches. Creatinine is at 4.2 and the BUN is 32. Her last hemodialysis session was Sunday the patient was unable to complete a full dialysis session because of hemodynamic instability. She is currently on norepinephrine infusion at 0.06 units per kilograms per minute. Potassium needs to be replaced. The fives on the case. Reevaluated today on 05/26/2019, patient remains in the ICU, she is off norepinephrine, no active GI bleeding at present, however the patient received a total of 2 units of packed RBCs since admission. Her hemoglobin this morning was 6.3, and she is in the process of receiving her second unit of packed RBCs. She was seen by gastroenterology on consultation, and I recommended conservative measures, advised that we continue broad-spectrum antibiotics for her urosepsis, and to monitor CBC on a daily basis, no plans for endoscopic intervention at this time. Seen by nephrology, and the patient is to continue hemodialysis. She does have clearly evidence of volume overload, hypertension and chronic kidney disease as well as acute blood loss anemia with hypocalcemia and hypoalbuminemia. Seen by cardiology, I recommended that we continue amiodarone, continue to hold the beta blockers also recommended cutting down amiodarone to 200 mg daily. And continue hemodialysis for her fluid overload. Today's chest x-ray was reviewed all labs were reviewed and hemoglobin again is 6.3 this morning. Electrolytes showed a low potassium of 3.1 being corrected as per p rotocol. Patient is presently off norepinephrine. Remains on antibiotics for her urosepsis. She remains on Zosyn. Urine culture is pending, blood culture is negative so far. Patient was seen today on 05/27/2019, remains in the ICU, and she was on non- rebreather mask, however I plan to switch the patient to high flow nasal cannula or possibly airvo O2 saturation remains marginal. Patient is feeling better clinically, continues to have dialysis, chest x-ray continues to show evidence of pulmonary edema. Patient remains short of breath with any activity. WBC count is 6.5 hemoglobin is 8.4 today. Received a total of 2 units of packed RBCs since admission. Patient is scheduled for dialysis today. She is off levo fed, remains on Zosyn and nystatin. Remains off anticoagulation therapy although she is in atrial fibrillation. Chest x-ray again shows evidence of pulmonary edema. Reevaluated today on 05/28/2019, remains in the ICU, presently on airvo at 95% FiO2, and high flow. Patient's O2 saturation is marginal, chest x-ray continues to show evidence of interstitial edema. Patient is to undergo hemodialysis again today and ultrafiltration. 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 Chest x-ray again continues to show interstitial edema. And questionable underlying infiltrates. WBC count is 7.9 hemoglobin 8.7 and a close are normal BUN is 44 creatinine 5.69. Reevaluated today on 05/29/2019, patient remains in the ICU. Remains on relatively high FiO2 and high O2 flow on airvo. Her O2 saturations fluctuating all over the place from high 80s to 100%. Patient is now receiving hemodialysis, and has been dialyzed yesterday. Patient usually improves significantly after hemodialysis, but even after 1 day her pulmonary status gets worse. Patient continues to have occasional cough, shortness of breath, denies any nausea vomiting no melena or hematemesis. Continues to have tachypnea and t achycardia. Labs were all reviewed chest x-ray continues to show interstitial edema, seen by infectious disease yesterday, did not seem to be concerned about Mary in the urine. Remains on steroids and she remains on antibiotics and/Zosyn. A was reevaluated today on 05/30/2019, remains in the intensive care unit, continues to require high FiO2 and high flow. Patient improves during hemodialysis, and shortly after hemodialysis. But her O2 saturations go back to the high 80s and low 90s in spite of 90% FiO2. Chest x-ray continues to show evidence of diffuse interstitial edema. CBC showed hemoglobin of 8.5 WBC count of 7.7 and electrolytes are normal BUN is 35 creatinine 3.98. Overall the patient is not making significant improvement whatsoever over the last 1 week. Today I discussed the CODE STATUS again with the patient, she seems to be inclined to consider DO NOT RESUSCITATE CODE STATUS, however she would like to discuss this with her daughter sometime today. Patient is maximized on treatment, and I have a strong feeling that she will eventually deteriorate and require intubation and mechanical ventilation, but she doesn't need it at this point yet. Patient was reevaluated today on 05/31/2019, remains in the ICU, remains on high flow FiO2, had hemodialysis again today, O2 saturation is marginal. Since yesterday, the patient discussed her condition with daughter as expected, and she is now clearly requesting DO NOT RESUSCITATE CODE STATUS. Patient continues to have interstitial edema, continues to have shortness of breath with any activity, even at rest. Electrolytes are normal CBC is normal hemoglobin is 8.5. Chest x-ray is not showing much improvement with her interstitial edema. I did discuss the issue of hospice with the patient today, she is not yet ready to accept hospice, but she seems to be inclined to consider seriously comfort care measures. Her decision is not yet fully made. And she is discussing all these issues with her daughter at bedside. The daughter was updated on her condition, and she is very well aware of her poor prognosis. Patient is also very well aware of her poor prognosis. Reevaluated today on 06/01/2019, patient remains in the ICU, she is basically about the same. O2 saturation remains marginal in spite of high FiO2 and high flow, daughter is at bedside, patient remains DO NOT RESUSCITATE CODE STATUS, again she has not made a final decision regarding hospice, and no final decision regarding comfort care. She is certain however that she would not want to be intubated or placed on mechanical ventilation.all labs were reviewed and CBC is relatively normal hemoglobin is holding at 8.9. Left lites are normal BUN is 50 creatinine 4.29. Chest x-ray continues to show bilateral interstitial edema/infiltrates Objective - Vital Signs Vital signs: Vital Signs Temp 98.2 F 06/01/19 08:00 Pulse 76 06/01/19 11:47 Resp 23 06/01/19 11:00 BP 143/72 06/01/19 11:00 Pulse Ox 97 06/01/19 11:38 Intake & Output 05/31/19 06/01/19 06/01/19 18:59 06:59 18:59 Intake Total 130 591.083 50 Output Total 3000 0 0 Balance -2870 591.083 50 Weight 123.6 kg Intake: IV 130 170 50 NS 130 70 50 Piperacillin-Tazobactam 3 100 .375 gm In Sodium Chloride 0.9% 100 ml @ 25 mls/hr IVPB Q12HR [facility] Rx #:[id number] Intake, IV Titration 141.083 Amount Diltiazem 125 mg In 141.083 Sodium Chloride 0.9% 100 ml @ 7.5 MG/HR 7.5 mls/hr IV .[id number] [facility] Rx#: [id number] Oral 280 Output: Urine 0 0 0 Hemodialysis 3000 Other: Voiding Method Incontinent Incontinent Incontinent - Exam Physical Exam: Revealed 64-year-old female, on airvo,with maximal FiO2 and maximal flow. Head: Atraumatic, normocephalic. HEENT:[Neck is supple.] [No neck masses.] [No thyromegaly.] [No JVD.] PERRLA, EOMI, no icterus. Chest: Crackles and rhonchi noted bilaterally. Some wheezing on forced expiratory maneuver noted. Symmetrical chest expansion.] Cardiac Exam: Irregular irregular rhythm. [Normal S1 and S2, no S3 gallop, no murmur.] Abdomen: [Obese, Soft, nontender, no megaly, no rebound, no guarding, normal bowel sounds.] Extremities: [No clubbing, 1+ bipedal edema, no cyanosis.] Good pulses bilaterally. Neurological Exam: [No focal neurologic deficit.] Alert oriented 3. Psychiatric: Normal mood, affect and normal mental status examination. Skin: No rashes. - Labs CBC & Chem 7: 06/01/19 04:25 06/01/19 04:25 Labs: Abnormal Lab Results - Last 24 Hours (Table) 05/31/19 05/31/19 06/01/19 Range/Units 17:05 20:53 04:25 WBC 11.0 H (3.8-10.6) k/uL RBC 2.79 L (3.80-5.40) m/uL Hgb 8.9 L (11.4-16.0) gm/dL Hct 29.4 L (34.0-46.0) % MCV 105.7 H (80.0-100.0) fL MCHC 30.3 L (31.0-37.0) g/dL RDW 20.1 H (11.5-15.5) % Neutrophils # 10.1 H (1.3-7.7) k/uL Lymphocytes # 0.1 L (1.0-4.8) k/uL Macrocytosis Marked A Sodium (137-145) mmol/L BUN (7-17) mg/dL Creatinine (0.52-1.04) mg/dL Glucose (74-99) mg/dL POC Glucose (mg/dL) 112 H 145 H (75-99) mg/dL Calcium (8.4-10.2) mg/dL 06/01/19 06/01/19 06/01/19 Range/Units 04:25 06:39 11:41 WBC (3.8-10.6) k/uL RBC (3.80-5.40) m/uL Hgb (11.4-16.0) gm/dL Hct (34.0-46.0) % MCV (80.0-100.0) fL MCHC (31.0-37.0) g/dL RDW (11.5-15.5) % Neutrophils # (1.3-7.7) k/uL Lymphocytes # (1.0-4.8) k/uL Macrocytosis Sodium 135 L (137-145) mmol/L BUN 50 H (7-17) mg/dL Creatinine 4.29 H (0.52-1.04) mg/dL Glucose 140 H (74-99) mg/dL POC Glucose (mg/dL) 134 H 110 H (75-99) mg/dL Calcium 7.3 L (8.4-10.2) mg/dL Assessment and Plan Assessment: Impression: 1 hypotension, multifactorial, as noted on previous notes. 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 Which is a combination of aortic valve disease and G I bleeding. 3 suspect urosepsis, urine is positive for Mary 4 GI bleeding exact etiology is not clear but could be as noted above. 5 severe aortic stenosis and aortic regurgitation 6 acute on chronic pulmonary edema and history of LV dysfunction/systolic in nature. 7 end-stage renal disease, on hemodialysis 8 obesity BMI of 49.8 9 history of CVA and left-sided weakness 10 metastatic breast cancer treated by chemotherapy and radiation therapy for her skeletal metastasis. I'm quite concerned about the possibility of lymphangitic carcinomatosis involving the lungs, however the patient is not a good candidate for bronchoscopy and biopsy at this point. 11 hyperlipidemia 12 acute candiduria , did not seem to be significant as per infectious disease on the case. Not recommending fluconazole Recommendation: Continue to monitor the patient in ICU. discontinue antibiotics., Continue hemodialysis. Continue bronchodilators. Continue Solu-Medrol. Continue GI and DVT prophylaxis. Continue to monitor labs on a daily basis including CBC and basic metabolic profile. Continue patient on high flow oxygen, titrate as tolerated and keep O2 sat above 90% The patient and her daughter were both updated on her condition, presently the patient requests DO NOT RESUSCITATE CODE STATUS, and she may eventually consider comfort care measures. Still hesitant to accept hospice referral. We'll continue to follow. discussed her condition with her daughter at bedside again today. And made aw are that her prognosis is extremely poor. Time with Patient: Less than 30
--- NOTE | 2019-06-01 12:34 | P.PN ---
Subjective Progress Note Date: 06/01/19 Principal diagnosis: Acute pulmonary edema/acute respiratory failure Acute renal failure/hemodialysis Acute GI bleed/acute blood loss anemia UTI 64 years old female with past medical history of hyperlipidemia, hypertension, CVA/TIA, metastatic left breast cancer in 1998 and the spine cancer in 2018, mostly its metastasis from her breast cancer, end-stage renal disease on dialys is, atrial fibrillation with RVR, she was recently discharged from the hospital for recent pneumonia and respiratory failure Patient was transferred from [facility] for GI hemorrhage and hypote nsion. [facility] she was confused and patient was found to be hypotensive and hypoxic with oxygen saturations at 78%, on her way to the hospital patient started waking up with supplemental oxygen. At first patient was sent to [facility] before she was transferred to the current hospital 05/30/2019, remains in the intensive care unit, continues to require high FiO2 and high flow. Patient improves during hemodialysis, and shortly after hemodialysis. But her O2 saturations go back to the high 80s and low 90s in spite of 90% FiO2. Chest x-ray continues to show evidence of diffuse interstitial edema. CBC showed hemoglobin of 8.5 WBC count of 7.7 and electrolytes are normal BUN is 35 creatinine 3.98. Overall the patient is not making significant improvement whatsoever over the last 1 week. Today I discussed the CODE STATUS again with the patient, she seems to be inclined to consider DO NOT RESUSCITATE CODE STATUS, however she would like to discuss this with her daughter sometime today. Patient is maximized on treatment, and I have a strong feeling that she will eventually deteriorate and require intubation and mechanical ventilation, but she doesn't need it at this point yet. 05/31/2019 Patient is seen and evaluated in ICU with multiple family members in the room; patient continues to have requirements for high flow oxygen; speaks in 2-3 word sentences; has been made DO NOT RESUSCITATE; patient reports that she might have dialysis again tomorrow morning Patient continues to have interstitial edema, continues to have shortness of breath with any activity, even at rest. Electrolytes are normal CBC is normal hemoglobin is 8.5. Chest x-ray is not showing much improvement with her interstitial edema. I did discuss the issue of hospice with the patient today, she is not yet ready to accept hospice, but she seems to be inclined to consider seriously comfort care measures. 06/01/2019 Patient is seen and evaluated in ICU; patient remains on high flow oxygen; talks in short 2-3 word sentences Vital signs are reviewed temperature of 98.2, pulse 74, respiration 18 and blood pressure of 144/72 SpO2 of 90% on high flow oxygen Lab review shows a white blood count of 11.0, hemoglobin 8.9 and platelet count of 159; sodium 135, potassium 4.2, BUN of 50 with creatinine of 4.29 which is trending up from 4.0 to yesterday; repeat chest x-ray done this morning continues to remain consistent with CHF Patient remains on IV Cardizem and Lopressor 25 mg twice a day for rate control; cardiology is following and further recommendations are awaited patient remains DO NOT RESUSCITATE CODE STATUS, again she has not made a final decision regarding hospice, and no final decision regarding comfort care. Objective - Vital Signs Vital signs: Vital Signs Temp 98.2 F 06/01/19 08:00 Pulse 66 06/01/19 10:00 Resp 14 06/01/19 10:00 BP 133/55 06/01/19 10:00 Pulse Ox 90 L 06/01/19 10:00 Intake & Output 05/31/19 06/01/19 06/01/19 18:59 06:59 18:59 Intake Total 130 591.083 40 Output Total 3000 0 0 Balance -2870 591.083 40 Weight 123.6 kg Intake: IV 130 170 40 NS 130 70 40 Piperacillin-Tazobactam 3 100 .375 gm In Sodium Chloride 0.9% 100 ml @ 25 mls/hr IVPB Q12HR [facility] Rx #:[id number] Intake, IV Titration 141.083 Amount Diltiazem 125 mg In 141.083 Sodium Chloride 0.9% 100 ml @ 7.5 MG/HR 7.5 mls/hr IV .[id number] [facility] Rx#: [id number] Oral 280 Output: Urine 0 0 0 Hemodialysis 3000 Other: Voiding Method Incontinent Incontinent Incontinent - Exam GENERAL: The patient is alert and oriented x3, not in any acute distress. Obese HEENT: Pupils are round and equally reacting to light. EOMI. No scleral icterus. No conjunctival pallor. Normocephalic, atraumatic. No pharyngeal erythema. No thyromegaly. CARDIOVASCULAR: S1 and S2 present. No murmurs, rubs, or gallops. -PULMONARY: Chest is clear to auscultation, bilateral basal crepitation -ABDOMEN: Soft, nontender, nondistended, normoactive bowel sounds. No palpable organomegaly. Hunter catheter is in place with light color on brown urine MUSCULOSKELETAL: No joint swelling or deformity. EXTREMITIES: No cyanosis, clubbing, or pedal edema. NEUROLOGICAL: Gross neurological examination did not reveal any focal deficits. SKIN: No rashes. No petechiae - Labs CBC & Chem 7: 06/01/19 04:25 06/01/19 04:25 Labs: Abnormal Lab Results - Last 24 Hours (Table) 05/31/19 05/31/19 05/31/19 Range/Units 11:48 17:05 20:53 WBC (3.8-10.6) k/uL RBC (3.80-5.40) m/uL Hgb (11.4-16.0) gm/dL Hct (34.0-46.0) % MCV (80.0-100.0) fL MCHC (31.0-37.0) g/dL RDW (11.5-15.5) % Neutrophils # (1.3-7.7) k/uL Lymphocytes # (1.0-4.8) k/uL Macrocytosis Sodium (137-145) mmol/L BUN (7-17) mg/dL Creatinine (0.52-1.04) mg/dL Glucose (74-99) mg/dL POC Glucose (mg/dL) 124 H 112 H 145 H (75-99) mg/dL Calcium (8.4-10.2) mg/dL 06/01/19 06/01/19 06/01/19 Range/Units 04:25 04:25 06:39 WBC 11.0 H (3.8-10.6) k/uL RBC 2.79 L (3.80-5.40) m/uL Hgb 8.9 L (11.4-16.0) gm/dL Hct 29.4 L (34.0-46.0) % MCV 105.7 H (80.0-100.0) fL MCHC 30.3 L (31.0-37.0) g/dL RDW 20.1 H (11.5-15.5) % Neutrophils # 10.1 H (1.3-7.7) k/uL Lymphocytes # 0.1 L (1.0-4.8) k/uL Macrocytosis Marked A Sodium 135 L (137-145) mmol/L BUN 50 H (7-17) mg/dL Creatinine 4.29 H (0.52-1.04) mg/dL Glucose 140 H (74-99) mg/dL POC Glucose (mg/dL) 134 H (75-99) mg/dL Calcium 7.3 L (8.4-10.2) mg/dL Assessment and Plan Assessment: Pulmonary edema, secondary to acute renal failure needing hemodialysis Acute respiratory failure Acute GI bleed Acute blood loss anemia Acute urinary tract infection Hypotension secondary to above, Possible combined septic and hemorrhagic shock. Improved, Off pressors currently recent pneumonia and respiratory failure End-stage renal disease on dialysis, patient was started on dialysis last admission at [facility] Atrial fibrillation Hypertension Hyperlipidemia CVA/TIA, with left hemiparesis Thrombocytopenia History of left breast cancer in 1997, status post breast surgery, metastatic to the spine and liver Plan: This is a pleasant 64 years old female who presents with GI bleed and hypotension with picture of shock. , transfuse blood as needed to keep hemoglobin above 7. Monitor vitals and hemoglobin. Continue with Protonix IV. we Appreciate critical care team and GI team and follow the recommendation. Nephrology consult is appreciated, continue on hemodialysis. Continue with Zosyn. Nystatin is added. Cardiology on the case however patient is off anticoagulation for her acute GI bleed. Continue with medication as above Labs and medication were reviewed.. Continue same treatment. Continue with symptomatic treatment. Resume home medication. Monitor lytes and vitals. DVT and GI prophylaxis. Further recommendations of the clinical course of the patient DVT prophylaxis: No heparin and review of GI bleed GI Prophylaxis: Protonix Prognosis is guarded Time with Patient: Greater than 30
--- NOTE | 2019-06-01 12:43 | PN ---
PROGRESS NOTE Patient is seen for followup for acute kidney injury, hemodialysis dependent. Patient was dialyzed yesterday. Yesterday, she felt she did not want to continue with dialysis and was considering hospice. However, this morning patient states she is feeling much better. She is breathing easier and wants to continue with renal replacement therapy. PHYSICAL EXAMINATION: On examination today, blood pressure was 143/72, heart rate 73 per minute, she is afebrile. Examination of the heart S1, S2. Examination of the lungs, bilateral breath sounds are heard. Abdomen is soft, obese. Examination of the lower extremities shows no significant edema. LAB: Show sodium 135, potassium 4.2, BUN 50, creatinine 4.29, calcium 7.3, hemoglobin 8.9 g/dL. ASSESSMENT: 1. Acute kidney injury, hemodialysis dependent currently oliguric. We will plan on dialysis tomorrow. 2. Volume overload now improved. Continue with daily treatments for now. We will hold off on dialysis for today. 3. Atrial fibrillation with rapid ventricular response, currently off Cardizem drip, maintained on oral amiodarone. 4. Anemia with severe iron deficiency maintained on IV iron. I will discontinue the IV iron for now. Continue with the Aranesp. PLAN: Hemodialysis in a.m. DC IV iron. Continue Aranesp. Continue to encourage increased oral intake. MMODL / IJN: [id number] /
[2019-06-01 16:59] LABS: Glucose,Whole Blood 122 mg/dL (75-99)
[2019-06-01] MEDS: DILTIAZEM 125 MG in SODIUM CHLORIDE 0.9% 100 ML IV SCH (17:44)
[2019-06-01] MEDS: SODIUM CHLORIDE 0.9% 1,000 ML IV SCH (17:45)
--- NOTE | 2019-06-01 20:27 | PN ---
PROGRESS NOTE Mrs. Lopez is back in sinus rhythm. She is feeling somewhat better. She is still requiring high-flow oxygen. Vitals are stable. JVD 1 cm. No carotid bruit. S1/S2 heard normally. Lungs reveal diminished air entry. Abdomen and lower extremity exam unchanged. Cardizem drip has been discontinued. We will continue oral amiodarone. Prognosis remains guarded. MMODL / IJN: [id number] /
[2019-06-01 20:51] LABS: Glucose,Whole Blood 139 mg/dL (75-99)
[2019-06-02] MEDS: LORazepam 2 MG/ML INJ IV PRN ×2 (03:22→22:26)
[2019-06-02 04:29] LABS: Anisocytosis Slight; Basophils # (A) 0.1 k/uL (0-0.2); Basophils % (A) 1 %; Eosinophils % (A) 0 %; HCT 28.6 % (34.0-46.0); HGB 9.3 gm/dL (11.4-16.0); Hypochromasia Slight; Lymphocytes # (A) 0.2 k/uL (1.0-4.8); Lymphocytes % (A) 1 %; MCH 33.1 pg (25.0-35.0); MCHC 32.5 g/dL (31.0-37.0); MCV 101.9 fL (80.0-100.0); Macrocytosis Moderate; Mean Platelet Volume 9.7; Monocytes # (A) 0.7 k/uL (0-1.0); Monocytes % (A) 5 %; Neutrophils # (A) 13.4 k/uL (1.3-7.7); Neutrophils % (A) 92 %; Platelet Count 148 k/uL (150-450); Poikilocytosis Slight; RBC 2.81 m/uL (3.80-5.40); RDW 19.5 % (11.5-15.5); WBC 14.5 k/uL (3.8-10.6)
[2019-06-02 04:49] LABS: Potassium 4.8 mmol/L (3.5-5.1)
[2019-06-02] MEDS: methylPREDNISolone SOD SUCCI 40 MG/ML 1 ML VIAL IV SCH ×3 (06:28→18:25)
[2019-06-02] MEDS: MIDODRINE 5 MG TAB PO SCH ×2 (06:31→18:26)
[2019-06-02 07:00] LABS: Glucose,Whole Blood 228 mg/dL (75-99)
[2019-06-02] MEDS: INSULIN ASPART (NovoLOG) 100 UNIT/ML VIAL SQ SCH ×4 (07:00→22:29)
[2019-06-02] MEDS: SUCRALFATE 1 GM TAB PO SCH ×4 (07:02→20:40)
--- NOTE | 2019-06-02 07:30 | P.PN ---
Subjective This is a pleasant 64 years old female with past medical history of hyperlipidemia, hypertension, CVA/TIA, metastatic left breast cancer in 1998 and the spine cancer in 2018, mostly its metastasis from her breast cancer, end- stage renal disease on dialysis, atrial fibrillation with RVR, she was recently discharged from the hospital for recent pneumonia and respiratory failure Patient was transferred from [facility] for GI hemorrhage and hypotension. At the [facility] she was confused and patient was found to be hypotensive and hypoxic with oxygen saturations at 78%, on her way to the hospital patient started waking up with supplemental oxygen. At first patient was sent to [facility] before she was transferred to the current hospital [place] labs reviewed, it looks like BMP and liver enzymes were unremarkable, hemoglobin was 6.9, occult blood in the stools positive, urinalysis showing doubly BC of 30-50 with positive nitrite. EKG showing normal sinus rhythm at [address]-T changes with QTC 498 Patient blood pressure was hypotensive with 77/52, she's been afebrile. Labs show hemoglobin 7 with hematocrit of 20.5, wBC 8.1K and platelet count 76k. Sodium 131, creatinine 3.5, liver enzymes mildly elevated at 79 and 58. INR is 1.1. Urine analysis is indicating for infection Patient is getting 1 unit of blood transfusion 05/25/2019 Patient resting comfortably in bed, she remains in the ICU currently. No chest pain or dyspnea. Patient with no nausea vomiting, she is passing gas but no bowel movement, no abdominal pain, she is on clear diet and wants to be advanced to soft area at she still have Hunter catheter with light brown urine, less turbid than yesterday. Hemoglobin stable at 7.2, WBC is 10.3 K, sodium 133 is stable. Creatinine went up to 4.2 slight improvement. Casino Attendant evaluated the patient and recommended hemodialysis today,. Pulmonary/critical care team is still following the patient closely 05/26/2019 Patient is seen in the ICU, patient is on soft diet with no nausea vomiting or abdominal pain. Patient has no bowel movement yet. She underwent hemodialysis yesterday and her oxygen requirement is improved from 12 down to 6-7 L/m, she had right upper chest catheter, also Hunter catheter with light brown urine is improving with antibiotics. Patient is still tachypneic with a breathing rate 24-30, her support vitals stable, and patient is afebrile. Her hemoglobin today dropped to 6.3 and she is getting 1 unit of blood transfusion, also patient is a scheduled to have hemodialysis today. Liver enzymes are slightly elevated. 05/27/2019 Patient is awake and alert, she is sitting up in bed, she is in respiratory distress on ventilation mask at 10 L oxygen via no debris that and she saturating 98%, she is slightly tachycardic 109-112, rest of vitals are unremar kable with blood pressure is 107/57, although it was lower this morning 90/56, patient is needing more oxygen requirement. She is in soft diet with no bowel movement since yesterday, however she is passing gas and tolerating her diet well. Left femoral and right upper chest catheters are intact and place. Hunter catheter would like to brown urine. Patient is planned for hemodialysis today. Casino Attendant see him on the case. Diana's on Zosyn and nystatin for her urinary tract infection, she is off Levophed. She is off anticoagulation from her A. fib with history of stroke due to recent drop in hemoglobin down to 6.3 needed a blood transfusion her hemoglobin today is 8.4 which is a stable. Platelets are stable at 78. Chest x-ray still showing pulmonary edema 05/28/2019 Patient remains in the ICU, her respiratory status got worse compared to yesterday and she is needing more oxygen at high flow cannula with FiO2 of 85% and oxygen flow rate of 60. Patient is becoming high-risk for intubation however her blood pressure is stable. She has frequent bowel movements but there is no blood or dark-colored stool. No nausea vomiting. She underwent hemodialysis today and 3 L of fluids has been taken off. stable hemoglobin at 8.7, with platelets 90 5k,, sodium 135, repeat chest x-ray: Showing pulmonary congestion and edema. Urine culture is growing Mary. Patient remains on Zosyn and nystatin, she is also on Solu-Medrol. 05/29/2019 Patient is still dyspneic while she is in the ICU she is on high flow oxygen with increasing her FiO2 up to 90%, she is short of breath and she could not finish his sentences due to her dyspnea. She denies chest pain. No significant coughing. No abdominal pain, Hunter catheter was taken out. No dark stool. Patient is still tachypneic with a breathing rate at 27 at times, blood pressure 105/47. Labs showing stable hemoglobin at 8.4, WBC normal at 60 8.1K, platelets improving to 103K. Repeat chest x-ray showing stable interstitial edema. Telecommunication Engineer recommended to continue with Lopressor 25 twice a day and medodrine, urine culture is growing Mary and patient is currently on nystatin and Zosyn. She is also on Solu-Medrol 40 mg. Patient is getting hemodialysis and nephrology of from the case closely. 06/02/2019 Patient remains in the ICU, she is short of breath and tachypneic, she could not finish her sentences because of her dyspnea and currently she is on oxygen at 60 liter per minute with 80% FiO2 via high flow nasal cannula with oxygen saturating 93%. Risks of vitals Stable including her heart rate, labs showing persistent leukocytosis of 14.5 K, however she is on steroids. Creatinine is 5.6 with sodium 132. Sugar is controlled. Repeat chest x-ray from this morning is reviewed, showing same persistent airway disease or with little improvement with possible fluid. She remains on Solu-Medrol 40 mg every 6 hours, nystatin orally while Zosyn has stopped also she is on Protonix twice daily and Carafate. Objective - Vital Signs Vital signs: Vital Signs Temp 98.7 F 06/02/19 04:00 Pulse 71 06/02/19 07:00 Resp 20 06/02/19 07:00 BP 128/45 06/02/19 07:00 Pulse Ox 93 L 06/02/19 07:00 Intake & Output 06/01/19 06/02/19 06/02/19 18:59 06:59 18:59 Intake Total 70 420 110 Output Total 1 0 0 Balance 69 420 110 Weight 133 kg Intake: IV 70 120 10 NS 70 120 10 Oral 300 100 Output: Urine 0 0 0 Stool 1 Other: Voiding Method Incontinent Incontinent # Bowel Movements 1 1 - Exam -GENERAL: The patient is alert and oriented x3, in respiratory distress and cannot 20 cm because of her dyspnea. Obese HEENT: Pupils are round and equally reacting to light. EOMI. No scleral icterus. No conjunctival pallor. Normocephalic, atraumatic. No pharyngeal erythema. No thyromegaly. CARDIOVASCULAR: S1 and S2 present. No murmurs, rubs, or gallops. -PULMONARY: Chest is clear to auscultation, bilateral basal crepitation ABDOMEN: Soft, nontender, nondistended, normoactive bowel sounds. No palpable organomegaly. MUSCULOSKELETAL: No joint swelling or deformity. EXTREMITIES: No cyanosis, clubbing, or pedal edema. NEUROLOGICAL: Gross neurological examination did not reveal any focal deficits. SKIN: No rashes. No petechiae - Labs CBC & Chem 7: 06/02/19 04:20 06/02/19 04:20 Labs: Abnormal Lab Results - Last 24 Hours (Table) 06/01/19 06/01/19 06/01/19 Range/Units 11:41 16:48 20:40 WBC (3.8-10.6) k/uL RBC (3.80-5.40) m/uL Hgb (11.4-16.0) gm/dL Hct (34.0-46.0) % MCV (80.0-100.0) fL RDW (11.5-15.5) % Plt Count (150-450) k/uL Neutrophils # (1.3-7.7) k/uL Lymphocytes # (1.0-4.8) k/uL Sodium (137-145) mmol/L Chloride (98-107) mmol/L Carbon Dioxide (22-30) mmol/L BUN (7-17) mg/dL Creatinine (0.52-1.04) mg/dL Glucose (74-99) mg/dL POC Glucose (mg/dL) 110 H 122 H 139 H (75-99) mg/dL Calcium (8.4-10.2) mg/dL 06/02/19 06/02/19 06/02/19 Range/Units 04:20 04:20 06:47 WBC 14.5 H (3.8-10.6) k/uL RBC 2.81 L (3.80-5.40) m/uL Hgb 9.3 L (11.4-16.0) gm/dL Hct 28.6 L (34.0-46.0) % MCV 101.9 H (80.0-100.0) fL RDW 19.5 H (11.5-15.5) % Plt Count 148 L (150-450) k/uL Neutrophils # 13.4 H (1.3-7.7) k/uL Lymphocytes # 0.2 L (1.0-4.8) k/uL Sodium 132 L (137-145) mmol/L Chloride 96 L (98-107) mmol/L Carbon Dioxide 19 L (22-30) mmol/L BUN 73 H (7-17) mg/dL Creatinine 5.68 H (0.52-1.04) mg/dL Glucose 144 H (74-99) mg/dL POC Glucose (mg/dL) 228 H (75-99) mg/dL Calcium 7.0 L (8.4-10.2) mg/dL Assessment and Plan Assessment: Pulmonary edema/congestion, secondary to acute renal failure needing hemo dialysis Severe Acute respiratory failure secondary to above Acute GI bleed, with stable hemoglobin Acute blood loss anemia Acute urinary tract infection. Finish antibiotic therapy Hypotension secondary to above, Possible combined septic and hemorrhagic shock. Improved, Off pressors currently recent pneumonia and respiratory failure End-stage renal disease on dialysis, patient was started on dialysis last admission at [place] Atrial fibrillation Hypertension Hyperlipidemia CVA/TIA, with left hemiparesis Thrombocytopenia History of left breast cancer in 1997, status post breast surgery, metastatic to the spine and liver Plan: This is a pleasant 64 years old female who currently been treated mainly for respiratory failure secondary to pulmonary congestion. Continue with nephrology recommendation and pulmonary/critical care team recommendation. Patient to continue on hemodialysis. Patient and family are considering comfort care measures. Continue with steroids, bronchodilators and oxygen. Continue with Protonix IV. Cardiology on the case however patient is off anticoagulation for her acute GI bleed. Continue with medication as above Labs and medication were reviewed.. Continue same treatment. Continue with symptomatic treatment. Resume home medication. Monitor lytes and vitals. DVT and GI prophylaxis. Further recommendations of the clinical course of the patient DVT prophylaxis: No heparin and review of GI bleed GI Prophylaxis: Protonix Prognosis is guarded
--- NOTE | 2019-06-02 08:13 | XR ---
EXAMINATION TYPE: XR chest 1V portable DATE OF EXAM: 06/02/2019 CLINICAL HISTORY: Difficulty breathing progress study. TECHNIQUE: Single AP portable upright view of the chest is obtained. COMPARISON: Chest x-ray from one day earlier and older studies. FINDINGS: Stable large bore right internal jugular dialysis catheter. Persistent cardiomegaly. Persi stent reticular interstitial markings bilaterally. No new focal airspace opacity, pleural effusion, o r pneumothorax. Multilevel spurring the spine redemonstrated. IMPRESSION: Overall stable findings, suspect cardiomegaly with mild interstitial edema on backgroun d chronic fibrosis. No significant interval change from one day earlier.
[2019-06-02] MEDS: ALBUTEROL NEBULIZED 2.5 MG/3 ML INHALATION PRN ×3 (08:24→19:50)
[2019-06-02] MEDS: DILTIAZEM 125 MG in SODIUM CHLORIDE 0.9% 100 ML IV SCH (09:19)
--- NOTE | 2019-06-02 09:46 | PN ---
PROGRESS NOTE DATE OF SERVICE: June 02, 2019 This is a 64-year-old female well known to us. She was admitted to the hospital on April. She has a history of GI bleed requiring 2 units of blood, urinary tract infection with sepsis, chronic renal failure with hemodialysis, and chronic atrial fibrillation. She was recently in the hospital, discharged to extended care facility and readmitted to the hospital. She was in an extended care facility in [place]. In addition, she has a history of severe aortic stenosis with aortic regurgitation and also a GI bleed, thought to be related to possible diverticular disease. 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 Anyway, the patient is lying on her back. Her daughter is at the bedside. She is a NO CODE. Currently not having any respiratory distress. She is using the AIRVO. It is set at 60 L/minute, 68% FiO2. Her saline IV is 0.9 at 10 mL an hour. When she comes off the AIRVO, she desaturates significantly. Currently, no additional GI bleeding. The patient is short of breath with any activity. No chest pain or chest discomfort. No fever or chills. No cough or phlegm production. PHYSICAL EXAMINATION: VITAL SIGNS: Current vital signs are reviewed. Temperature is 98.7, heart rate is 70, respiratory rate 27, blood pressure 151/72, mean 98 and saturations are 96% on the AIRVO. HEENT: Examination is grossly unremarkable. Nasal cannula noted. She has mild conversational dyspnea. No audible wheezing or use of accessory muscles. NECK: Supple. Full range of motion. No adenopathy. Neck veins are flat. CARDIOVASCULAR: Examination reveals regular rhythm and rate. Heart rate in mid 70s. S1, S2 normal. Heart sounds are distant. No distinct murmur noted. LUNGS: Reveal some coarse rhonchi. There are some expiratory wheezes. There are some bibasilar crackles. ABDOMEN: Obese. Bowel sounds are noted. EXTREMITIES: Are intact. There is edema. SKIN: Without rash. No cyanosis or clubbing noted. NEUROLOGIC: Examination is brief but nonfocal. LABORATORY DATA: Current laboratory data includes a white count of 14.5, hemoglobin 9.3, hematocrit 28.6, platelet count 148,000. Sodium 132, potassium 4.8, chloride 96, CO2 of 19. Anion gap is 17. BUN and creatinine were 73 and 5.68 respectively. Calcium is 7. Microbiology showing Mary albicans in the urine from May 24. A chest x-ray from this morning shows fluid overload. The hemodialysis catheter is noted. There are bilateral effusions. MEDICATIONS: Medications are reviewed. ASSESSMENT: 1. Acute gastrointestinal bleed, of unclear etiology. May relate to Heyde's syndrome. 2. Hypotension, improved. 3. 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 Heyde's syndrome. 4. Possible urosepsis secondary to Mary. 5. Valvular heart disease. 6. Acute on chronic pulmonary edema. 7. End-stage renal disease, currently on hemodialysis. 8. Obesity. 9. Cerebrovascular accident with left-sided weakness. 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 11.Hyperlipidemia. 12.Candiduria. PLAN: Currently, the patient is a DNR as per Dr. Delacruz's last note. We will continue with hemodialysis, bronchodilators, steroids, antibiotics and antifungals. We will continue to follow closely. The patient is a DO NOT RESUSCITATE. Overall prognosis remains poor. She remains on GI and DVT prophylaxis. Additional recommendations and suggestions are forthcoming. She appears to be quite depressed because of her current medical condition. MMODL / IJN: [id number] /
[2019-06-02] MEDS: SENNOSIDES-DOCUSATE SODIUM 1 EACH TAB PO SCH (09:59)
[2019-06-02] MEDS: PANTOPRAZOLE 40 MG/10 ML VIAL IV SCH ×2 (10:14→20:42)
[2019-06-02] MEDS: GABAPENTIN 300 MG CAP PO SCH ×2 (10:16→20:41)
[2019-06-02] MEDS: NYSTATIN 100,000 UNIT/ML SUSP 500,000 UNIT/5 ML CUP PO SCH ×4 (11:44→22:29)
[2019-06-02] MEDS: FLUTICASONE 50MCG/SPRAY NASAL 16GM EA NOSTRIL SCH (11:44)
[2019-06-02] MEDS: AMIODARONE 200 MG TAB PO SCH (11:47)
[2019-06-02] MEDS: METOPROLOL TARTRATE 25 MG TAB PO SCH ×2 (11:47→20:42)
[2019-06-02] MEDS: CYANOCOBALAMIN 500 MCG TAB PO SCH (11:47)
[2019-06-02 12:08] LABS: Glucose,Whole Blood 191 mg/dL (75-99)
--- NOTE | 2019-06-02 12:37 | PN ---
PROGRESS NOTE Patient is seen on hemodialysis. She is tolerating her treatment well. However, she becomes quite short of breath on minimal exertion. PHYSICAL EXAMINATION: This morning blood pressure was 115/61, heart rate 76 per minute, she is afebrile. Examination of the heart S1, S2. Examination of lungs, decreased breath sounds at the bases. Abdomen is soft. Morbidly obese. Examination of the lower extremities shows no significant edema. LINE RUNNER exam grossly intact. LABS: Show hemoglobin 9.3, sodium 132, potassium 4.8, BUN 73 serum creatinine 5.68. ASSESSMENT: 1. Acute kidney injury, currently hemodialysis dependent. Patient remains oliguric. 2. Volume overload slowly improving. We will try for about 3 L again today. 3. Atrial fibrillation with RVR with controlled ventricular response maintained on dated Cardizem drip. 4. Anemia with iron deficiency and anemia of chronic disease as well, maintained on Aranesp and status post IV iron. 5. Chronic obstructive pulmonary disease exacerbation. 6. Chronic hypotension with normal cortisol level, maintained on midodrine. PLAN: 1. UF of about 3 L today with hemodialysis. 2. Dialysis will be on Sunday unless patient has worsening respiratory failure. MMODL / IJN: [id number] /
--- NOTE | 2019-06-02 12:45 | P.PN ---
Subjective Progress Note Date: 06/02/19 Principal diagnosis: TEDDY, In f/u today pt is mildly confused-asks reasonable questions but not related to topic. Breathing is labored, she is very weak, wants to know when she can use a walker or get in a w/c. Objective - Vital Signs Vital signs: Vital Signs Temp 98.7 F 06/02/19 04:00 Pulse 70 06/02/19 11:00 Resp 16 06/02/19 11:00 BP 108/56 06/02/19 11:00 Pulse Ox 97 06/02/19 11:00 Intake & Output 06/01/19 06/02/19 06/02/19 18:59 06:59 18:59 Intake Total 70 420 160 Output Total 1 0 3000 Balance 69 420 -2840 Weight 133 kg Intake: IV 70 120 60 NS 70 120 60 Oral 300 100 Output: Urine 0 0 0 Stool 1 Other 3000 Other: Voiding Method Incontinent Incontinent Incontinent # Bowel Movements 1 1 - Constitutional General appearance: Present: cooperative, obese, severe distress - EENT Eyes: Present: anicteric sclerae, EOMI ENT: Present: hearing grossly normal - Respiratory Respiratory: bilateral: rales, rhonchi, wheezing - Cardiovascular Heart sounds: normal: S1, S2 - Peripheral edema leg Peripheral Edema: bilateral: 1+ - Gastrointestinal General gastrointestinal: Present: normal bowel sounds, soft - Neurologic Neurologic: Present: CNII-XII intact - Musculoskeletal Musculoskeletal: Present: generalized weakness - Psychiatric Psychiatric: Present: A&O x's 3, appropriate affect, intact judgment & insight - Labs CBC & Chem 7: 06/02/19 04:20 06/02/19 04:20 Labs: Abnormal Lab Results - Last 24 Hours (Table) 06/01/19 06/01/19 06/02/19 Range/Units 16:48 20:40 04:20 WBC 14.5 H (3.8-10.6) k/uL RBC 2.81 L (3.80-5.40) m/uL Hgb 9.3 L (11.4-16.0) gm/dL Hct 28.6 L (34.0-46.0) % MCV 101.9 H (80.0-100.0) fL RDW 19.5 H (11.5-15.5) % Plt Count 148 L (150-450) k/uL Neutrophils # 13.4 H (1.3-7.7) k/uL Lymphocytes # 0.2 L (1.0-4.8) k/uL Sodium (137-145) mmol/L Chloride (98-107) mmol/L Carbon Dioxide (22-30) mmol/L BUN (7-17) mg/dL Creatinine (0.52-1.04) mg/dL Glucose (74-99) mg/dL POC Glucose (mg/dL) 122 H 139 H (75-99) mg/dL Calcium (8.4-10.2) mg/dL 06/02/19 06/02/19 06/02/19 Range/Units 04:20 06:47 11:57 WBC (3.8-10.6) k/uL RBC (3.80-5.40) m/uL Hgb (11.4-16.0) gm/dL Hct (34.0-46.0) % MCV (80.0-100.0) fL RDW (11.5-15.5) % Plt Count (150-450) k/uL Neutrophils # (1.3-7.7) k/uL Lymphocytes # (1.0-4.8) k/uL Sodium 132 L (137-145) mmol/L Chloride 96 L (98-107) mmol/L Carbon Dioxide 19 L (22-30) mmol/L BUN 73 H (7-17) mg/dL Creatinine 5.68 H (0.52-1.04) mg/dL Glucose 144 H (74-99) mg/dL POC Glucose (mg/dL) 228 H 191 H (75-99) mg/dL Calcium 7.0 L (8.4-10.2) mg/dL Assessment and Plan (1) Metastatic breast carcinoma Current Visit: Yes Status: Chronic Priority: High Code(s): C50.919 - MALIGNANT NEOPLASM OF UNSP SITE OF UNSPECIFIED FEMALE BREAST SNOMED Code(s): 407610926 Plan: Discussed with pt and daughter at bedside concerns for pt ongoing failure despite treatment and supportive care. We discussed lymphangetic spread of cancer, what it presents like and that her condition is very concerning for the same-no s/s infection, stable CXR but persistent/progressive dyspnea/TEDDY/high O2 needs. We discussed that the only way to know for certain is via bronch and biopsy but, the pt respiratory status is too compromised to consider this procedure. Pt wondering when she will get into w/c and asking when she can go back to rehab and try walking. We had a candid discussion about how quickly after DC she returned to the hospital for same symptoms an that she is not improving. I told her that she would likely not be able to recuperate enough to be ambulatory again. She and her daughter asked about comfort care and they were told that it is an absolutely reasonable choice/plan of care to pursue. Talked with Case Mgmt-hospice info session scheduled for this afternoon. All questions answered to the best of my ability and to pt satisfaction. Agree with supportive care as prescribed at this time
[2019-06-02 13:12] VITALS: BMI 50.3
[2019-06-02] MEDS ORDERED: SENNOSIDES-DOCUSATE SODIUM 1 EACH TAB PO PRN (14:37)
[2019-06-02 16:39] LABS: Glucose,Whole Blood 115 mg/dL (75-99)
--- NOTE | 2019-06-02 20:46 | PN ---
PROGRESS NOTE Mrs. Lopez has multiple medical problems, including metastatic breast carcinoma, paroxysmal atrial fibrillation and anemia. Her atrial fibrillation is paroxysmal. She has been in sinus rhythm for more than 24 hours. She is handling this well. Vitals are stable. There is JVD of 1 cm. No carotid bruit. S1, S2 heard normally. Short systolic murmur noted. Lungs reveal improved air entry. Abdomen and lower extremity exam is unchanged. Plan is to continue current medications, including beta blockers and amiodarone. I will see her as needed from a cardiac standpoint. MMODL / IJN: [id number] /
[2019-06-03 00:14] VITALS: TEMP 98.6
[2019-06-03] MEDS: methylPREDNISolone SOD SUCCI 40 MG/ML 1 ML VIAL IV SCH ×2 (00:21→05:13)
[2019-06-03] MEDS: DILTIAZEM 125 MG in SODIUM CHLORIDE 0.9% 100 ML IV SCH (03:10)
[2019-06-03] MEDS: SODIUM CHLORIDE 0.9% 1,000 ML IV SCH (05:15)
[2019-06-03 06:17] LABS: Anisocytosis Slight; Basophils # (A) 0.1 k/uL (0-0.2); Basophils % (A) 1 %; Eosinophils % (A) 0 %; HCT 31.9 % (34.0-46.0); HGB 9.6 gm/dL (11.4-16.0); Hypochromasia Moderate; Lymphocytes # (A) 0.1 k/uL (1.0-4.8); Lymphocytes % (A) 1 %; MCH 32.4 pg (25.0-35.0); Macrocytosis Marked; Mean Platelet Volume 9.6; Monocytes # (A) 0.7 k/uL (0-1.0); Monocytes % (A) 6 %; Neutrophils # (A) 11.1 k/uL (1.3-7.7); Neutrophils % (A) 92 %; Platelet Count 147 k/uL (150-450); RBC 2.96 m/uL (3.80-5.40); RDW 19.6 % (11.5-15.5); WBC 12.1 k/uL (3.8-10.6)
[2019-06-03 06:17] LABS: Calcium 7.2 mg/dL (8.4-10.2); Magnesium 2.2 mg/dL (1.6-2.3); Phosphorus 7.3 mg/dL (2.5-4.5); Potassium 4.7 mmol/L (3.5-5.1)
[2019-06-03 06:24] LABS: Glucose,Whole Blood 122 mg/dL (75-99)
[2019-06-03] MEDS: INSULIN ASPART (NovoLOG) 100 UNIT/ML VIAL SQ SCH (06:42)
[2019-06-03] MEDS: SUCRALFATE 1 GM TAB PO SCH (06:42)
[2019-06-03 07:13] LABS: Polychromasia Present
[2019-06-03 07:18] LABS: Large Platelets Present
--- NOTE | 2019-06-03 07:37 | P.PN ---
Subjective This is a pleasant 64 years old female with past medical history of hyperlipidemia, hypertension, CVA/TIA, metastatic left breast cancer in 1998 and the spine cancer in 2018, mostly its metastasis from her breast cancer, end- stage renal disease on dialysis, atrial fibrillation with RVR, she was recently discharged from the hospital for recent pneumonia and respiratory failure Patient was transferred from [facility] for GI hemorrhage and hypotension. At the [facility] she was confused and patient was found to be hypotensive and hypoxic with oxygen saturations at 78%, on her way to the hospital patient started waking up with supplemental oxygen. At first patient was sent to [facility] before she was transferred to the current hospital [place] labs reviewed, it looks like BMP and liver enzymes were unremarkable, hemoglobin was 6.9, occult blood in the stools positive, urinalysis showing doubly BC of 30-50 with positive nitrite. EKG showing normal sinus rhythm at [address]-T changes with QTC 498 Patient blood pressure was hypotensive with 77/52, she's been afebrile. Labs show hemoglobin 7 with hematocrit of 20.5, wBC 8.1K and platelet count 76k. Sodium 131, creatinine 3.5, liver enzymes mildly elevated at 79 and 58. INR is 1.1. Urine analysis is indicating for infection Patient is getting 1 unit of blood transfusion 05/25/2019 Patient resting comfortably in bed, she remains in the ICU currently. No chest pain or dyspnea. Patient with no nausea vomiting, she is passing gas but no bowel movement, no abdominal pain, she is on clear diet and wants to be advanced to soft area at she still have Hunter catheter with light brown urine, less turbid than yesterday. Hemoglobin stable at 7.2, WBC is 10.3 K, sodium 133 is stable. Creatinine went up to 4.2 slight improvement. Barber Tool Sharpener evaluated the patient and recommended hemodialysis today,. Pulmonary/critical care team is still following the patient closely 05/26/2019 Patient is seen in the ICU, patient is on soft diet with no nausea vomiting or abdominal pain. Patient has no bowel movement yet. She underwent hemodialysis yesterday and her oxygen requirement is improved from 12 down to 6-7 L/m, she had right upper chest catheter, also Hunter catheter with light brown urine is improving with antibiotics. Patient is still tachypneic with a breathing rate 24-30, her support vitals stable, and patient is afebrile. Her hemoglobin today dropped to 6.3 and she is getting 1 unit of blood transfusion, also patient is a scheduled to have hemodialysis today. Liver enzymes are slightly elevated. 05/27/2019 Patient is awake and alert, she is sitting up in bed, she is in respiratory distress on ventilation mask at 10 L oxygen via no debris that and she saturating 98%, she is slightly tachycardic 109-112, rest of vitals are unremar kable with blood pressure is 107/57, although it was lower this morning 90/56, patient is needing more oxygen requirement. She is in soft diet with no bowel movement since yesterday, however she is passing gas and tolerating her diet well. Left femoral and right upper chest catheters are intact and place. Hunter catheter would like to brown urine. Patient is planned for hemodialysis today. Barber Tool Sharpener see him on the case. Diana's on Zosyn and nystatin for her urinary tract infection, she is off Levophed. She is off anticoagulation from her A. fib with history of stroke due to recent drop in hemoglobin down to 6.3 needed a blood transfusion her hemoglobin today is 8.4 which is a stable. Platelets are stable at 78. Chest x-ray still showing pulmonary edema 05/28/2019 Patient remains in the ICU, her respiratory status got worse compared to yesterday and she is needing more oxygen at high flow cannula with FiO2 of 85% and oxygen flow rate of 60. Patient is becoming high-risk for intubation however her blood pressure is stable. She has frequent bowel movements but there is no blood or dark-colored stool. No nausea vomiting. She underwent hemodialysis today and 3 L of fluids has been taken off. stable hemoglobin at 8.7, with platelets 90 5k,, sodium 135, repeat chest x-ray: Showing pulmonary congestion and edema. Urine culture is growing Mary. Patient remains on Zosyn and nystatin, she is also on Solu-Medrol. 05/29/2019 Patient is still dyspneic while she is in the ICU she is on high flow oxygen with increasing her FiO2 up to 90%, she is short of breath and she could not finish his sentences due to her dyspnea. She denies chest pain. No significant coughing. No abdominal pain, Hunter catheter was taken out. No dark stool. Patient is still tachypneic with a breathing rate at 27 at times, blood pressure 105/47. Labs showing stable hemoglobin at 8.4, WBC normal at 60 8.1K, platelets improving to 103K. Repeat chest x-ray showing stable interstitial edema. Postage Machine Operator recommended to continue with Lopressor 25 twice a day and medodrine, urine culture is growing Mary and patient is currently on nystatin and Zosyn. She is also on Solu-Medrol 40 mg. Patient is getting hemodialysis and nephrology of from the case closely. 06/02/2019 Patient remains in the ICU, she is short of breath and tachypneic, she could not finish her sentences because of her dyspnea and currently she is on oxygen at 60 liter per minute with 80% FiO2 via high flow nasal cannula with oxygen saturating 93%. Risks of vitals Stable including her heart rate, labs showing persistent leukocytosis of 14.5 K, however she is on steroids. Creatinine is 5.6 with sodium 132. Sugar is controlled. Repeat chest x-ray from this morning is reviewed, showing same persistent airway disease or with little improvement with possible fluid. She remains on Solu-Medrol 40 mg every 6 hours, nystatin orally while Zosyn has stopped also she is on Protonix twice daily and Carafate. 06/03/2019 patient remains in the ICU with little improvement in her respiratory distress, she still have difficulty talking due to her breathing. She got hemodialysis and nephrology team are following. She denies chest pain or abdominal pain. No diarrhea. Patient saturating 93% to 97% on high flow oxygen cannula at 60%. Rest of vitals are stable. Double BC 12.1 K, hemoglobin 9.6. Creatinine 4.2, sodium 132. Patient remains on nystatin, off other antibiotics. She is on Solu-Medrol 40 mg to 6 hours. However it was stopped today. Sugar is controlled. Patient is followed closely by pulmonary and cardiology team, she remains on medial drain, metoprolol and amiodarone. Daughter at bedside Objective - Vital Signs Vital signs: Vital Signs Temp 98.6 F 06/03/19 00:00 Pulse 68 06/03/19 06:00 Resp 18 06/03/19 06:00 BP 136/57 06/03/19 06:00 Pulse Ox 97 06/03/19 06:00 Intake & Output 06/02/19 06/03/19 06/03/19 18:59 06:59 18:59 Intake Total 630 120 Output Total 6302 1 Balance -5672 119 Weight 133 kg 123.3 kg Intake: IV 130 120 NS 130 120 Oral 200 Hemodialysis 300 Output: Urine 0 0 Stool 2 1 Hemodialysis 3300 Other 3000 Other: Voiding Method Incontinent Incontinent # Voids 1 1 # Bowel Movements 1 1 - Exam -GENERAL: The patient is alert and oriented x3, in respiratory distress and cannot 20 cm because of her dyspnea. Obese HEENT: Pupils are round and equally reacting to light. EOMI. No scleral icterus. No conjunctival pallor. Normocephalic, atraumatic. No pharyngeal erythema. No thyromegaly. CARDIOVASCULAR: S1 and S2 present. No murmurs, rubs, or gallops. -PULMONARY: Chest is clear to auscultation, bilateral basal crepitation ABDOMEN: Soft, nontender, nondistended, normoactive bowel sounds. No palpable or ganomegaly. MUSCULOSKELETAL: No joint swelling or deformity. EXTREMITIES: No cyanosis, clubbing, or pedal edema. NEUROLOGICAL: Gross neurological examination did not reveal any focal deficits. SKIN: No rashes. No petechiae - Labs CBC & Chem 7: 06/03/19 05:08 06/03/19 05:04 Labs: Abnormal Lab Results - Last 24 Hours (Table) 06/02/19 06/02/19 06/03/19 Range/Units 11:57 16:27 05:04 WBC (3.8-10.6) k/uL RBC (3.80-5.40) m/uL Hgb (11.4-16.0) gm/dL Hct (34.0-46.0) % MCV (80.0-100.0) fL MCHC (31.0-37.0) g/dL RDW (11.5-15.5) % Plt Count (150-450) k/uL Neutrophils # (1.3-7.7) k/uL Lymphocytes # (1.0-4.8) k/uL Macrocytosis Sodium 132 L (137-145) mmol/L Chloride 97 L (98-107) mmol/L Carbon Dioxide 19 L (22-30) mmol/L BUN 50 H (7-17) mg/dL Creatinine 4.28 H (0.52-1.04) mg/dL Glucose 105 H (74-99) mg/dL POC Glucose (mg/dL) 191 H 115 H (75-99) mg/dL Calcium 7.2 L (8.4-10.2) mg/dL Phosphorus 7.3 H (2.5-4.5) mg/dL 06/03/19 06/03/19 Range/Units 05:08 06:13 WBC 12.1 H (3.8-10.6) k/uL RBC 2.96 L (3.80-5.40) m/uL Hgb 9.6 L (11.4-16.0) gm/dL Hct 31.9 L (34.0-46.0) % MCV 108.0 H D (80.0-100.0) fL MCHC 30.0 L (31.0-37.0) g/dL RDW 19.6 H (11.5-15.5) % Plt Count 147 L (150-450) k/uL Neutrophils # 11.1 H (1.3-7.7) k/uL Lymphocytes # 0.1 L (1.0-4.8) k/uL Macrocytosis Marked A Sodium (137-145) mmol/L Chloride (98-107) mmol/L Carbon Dioxide (22-30) mmol/L BUN (7-17) mg/dL Creatinine (0.52-1.04) mg/dL Glucose (74-99) mg/dL POC Glucose (mg/dL) 122 H (75-99) mg/dL Calcium (8.4-10.2) mg/dL Phosphorus (2.5-4.5) mg/dL Assessment and Plan Assessment: Pulmonary edema/congestion, secondary to acute renal failure needing hemodialysis Severe Acute respiratory failure secondary to above Acute GI bleed, with stable hemoglobin Acute blood loss anemia Acute urinary tract infection. Finish antibiotic therapy Hypotension secondary to above, Possible combined septic and hemorrhagic shock. Improved, Off pressors currently recent pneumonia and respiratory failure End-stage renal disease on dialysis, patient was started on dialysis last admission at [place] Atrial fibrillation Hypertension Hyperlipidemia CVA/TIA, with left hemiparesis Thrombocytopenia History of left breast cancer in 1997, status post breast surgery, metastatic to the spine and liver Plan: This is a pleasant 64 years old female who currently been treated mainly for respiratory failure secondary to pulmonary congestion. Continue with nephrology recommendation and pulmonary/critical care team recommendation. Patient to continue on hemodialysis. Patient and family are considering comfort care measures. steroids has been Discontinued , continue with bronchodilators and oxygen. Continue with Protonix IV. Cardiology on the case however patient is off anticoagulation for her acute GI bleed. Continue with medication as above Labs and medication were reviewed.. Continue same treatment. Continue with symptomatic treatment. Resume home medication. Monitor lytes and vitals. DVT and GI prophylaxis. Further recommendations of the clinical course of the patient DVT prophylaxis: No heparin and review of GI bleed GI Prophylaxis: Protonix Prognosis is guarded
--- NOTE | 2019-06-03 07:39 | PN ---
PROGRESS NOTE DATE OF SERVICE: June 03, 2019 This is a 64-year-old female admitted back on May 24. The patient was admitted to the hospital on the . She has a history of GI bleed requiring 2 units of blood. In addition, she comes in with a diagnosis of acute urinary tract infection with sepsis, chronic renal failure with hemodialysis, and chronic atrial fibrillation. She was recently in the hospital and discharged to extended care facility and readmitted to the hospital. Her extended care facility was in [place] [employer], [place]. In addition, she has a history of severe aortic stenosis with aortic regurgitation as well as GI bleed as mentioned earlier. 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 The patient is a NO CODE. We did have hospice come see the patient. The daughter is at bedside. I did have a conversation with the daughter today about code status and about just making the patient more comfortable with oxygen therapy and narcotics. Anyway, she is currently on AIRVO. It is set at 60 L/minute at 60%. With any movement or positioning in bed, she desaturates. I believe the patient realizes that she is sort of at the end of her life. She is also getting saline at 10 mL an hour. PHYSICAL EXAMINATION: VITAL SIGNS: Current vital signs are reviewed. Temperature is 98.6, heart rate 68, respiratory rate 18, blood pressure 136/57, mean 83, saturations are between 93% and 95% on the AIRVO. GENERAL: Appears in mild shortness of breath. She does have some conversational dyspnea. No audible wheezing. No use of accessory muscles. HEENT: Examination is grossly unremarkable. AIRVO cannula in place. NECK: Supple. Full range of motion. No adenopathy. Neck veins are flat. CARDIOVASCULAR: Examination reveals regular rhythm and rate. Heart rate in mid 60s. It is regular. S1, S2 normal. Heart sounds are very distant. No distinct murmur. LUNGS: Reveal coarse rhonchi. Breath sounds are diminished. There are some crackles bilaterally. No wheezes. Breath sounds equal bilaterally. ABDOMEN: Obese. Bowel sounds are heard. EXTREMITIES: Reveal some mild edema. SKIN: Without rash. NEUROLOGIC: Examination is difficult to assess but she appears to still move all 4 extremities. She is awake and alert. LAB DATA: Lab data is reviewed. White count 12.1, hemoglobin 9.6, hematocrit 31.9, platelet count 147,000. Sodium 132, potassium 4.7, chloride 97, CO2 is 19. Anion gap is 16. BUN and creatinine were 50 and 4.28. Magnesium 2.2. Microbiology is showing Mary albicans in the urine from May 24. Chest x-ray shows diffuse bilateral infiltrates. Chest x-ray consistent with some interstitial edema. There are very tiny pleural effusions. Hemodialysis catheter is noted. MEDICATIONS: Medications are reviewed. ASSESSMENT: 1. Acute gastrointestinal bleed, of unclear etiology, this may relate to Heyde's syndrome. 2. Hypotension, improved. 3. 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 Heyde's syndrome. 4. Possible urosepsis secondary to Mary. 5. Valvular heart disease. 6. Acute on chronic pulmonary edema. 7. End-stage renal disease, currently on hemodialysis. 8. Obesity. 9. Cerebrovascular accident with left-sided weakness. 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 11.Hyperlipidemia. 12.General medical debility and profound weakness. PLAN: I did have a talk with the patient and the daughter at the bedside. She is a DNR. We are going to get hospice involved. The patient could be transferred out to the general medical floor. Overall prognosis remains very poor. I talked to the daughter about at this point just making her comfortable with supplemental oxygen and narcotics. She is going to give that some thought and talk to her father. Additional recommendations and suggestions are forthcoming. The patient appears to be quite depressed. MMODL / IJN: [id number] /
--- NOTE | 2019-06-03 08:15 | XR ---
EXAMINATION TYPE: XR chest 1V portable DATE OF EXAM: 06/03/2019 Comparison: 06/02/2019 Clinical History: 44-year-old female CHF Findings: Right-sided double-lumen hemodialysis catheter with tips in the upper right atrium. Heart mildly enla rged. Diffuse interstitial and patchy airspace opacities persist, greatest in the upper lungs. No siz able effusion seen on the frontal view. Impression: Mild cardiomegaly with interstitial changes and patchy airspace opacities throughout, greatest in the upper lungs, relatively unchanged. Correlate for fluid overload state and interstitial pulmonary [place]
[2019-06-03] MEDS: AMIODARONE 200 MG TAB PO SCH (08:59)
[2019-06-03] MEDS: MIDODRINE 5 MG TAB PO SCH (08:59)
[2019-06-03] MEDS: CYANOCOBALAMIN 500 MCG TAB PO SCH (09:00)
[2019-06-03] MEDS: PANTOPRAZOLE 40 MG/10 ML VIAL IV SCH (09:02)
[2019-06-03] MEDS: METOPROLOL TARTRATE 25 MG TAB PO SCH (09:02)
[2019-06-03] MEDS: NYSTATIN 100,000 UNIT/ML SUSP 500,000 UNIT/5 ML CUP PO SCH (09:02)
[2019-06-03] MEDS: LORazepam 2 MG/ML INJ IV PRN (10:27)
[2019-06-03 11:07] VITALS: BP 100/45; PULSE 67; RESP 14
--- NOTE | 2019-06-03 14:09 | P.PN ---
Subjective Progress Note Date: 06/03/19 Principal diagnosis: TEDDY, metastatic breast cancer Patient is seen with multiple family members at the bedside. She says that she is getting tired, she doesn't want to suffer does not want her family to watch her suffer. Her breathing is comfortable at rest, she has no strength to move even her extremities, she is not complaining of any pain or nausea. Objective - Vital Signs Vital signs: Vital Signs Temp 98.6 F 06/03/19 00:00 Pulse 67 06/03/19 11:00 Resp 14 06/03/19 11:00 BP 100/45 06/03/19 11:00 Pulse Ox 88 L 06/03/19 11:00 Intake & Output 06/02/19 06/03/19 06/03/19 18:59 06:59 18:59 Intake Total 630 120 150 Output Total 6302 1 1 Balance -5672 119 149 Weight 133 kg 123.3 kg Intake: IV 130 120 30 NS 130 120 30 Oral 200 120 Hemodialysis 300 Output: Urine 0 0 0 Stool 2 1 1 Hemodialysis 3300 Other 3000 Other: Voiding Method Incontinent Incontinent Incontinent # Voids 1 1 # Bowel Movements 1 1 - Exam well-developed female laying in bed, mild respiratory distress, she is alert and oriented to self, place, time and situation. Respirations are s hallow, audible chest congestion, skin is pale and clammy, multiple bruises on the forearms related to needlestick traumas from lab draws. - Labs CBC & Chem 7: 06/03/19 05:08 06/03/19 05:04 Labs: Abnormal Lab Results - Last 24 Hours (Table) 06/02/19 06/03/19 06/03/19 Range/Units 16:27 05:04 05:08 WBC 12.1 H (3.8-10.6) k/uL RBC 2.96 L (3.80-5.40) m/uL Hgb 9.6 L (11.4-16.0) gm/dL Hct 31.9 L (34.0-46.0) % MCV 108.0 H D (80.0-100.0) fL MCHC 30.0 L (31.0-37.0) g/dL RDW 19.6 H (11.5-15.5) % Plt Count 147 L (150-450) k/uL Neutrophils # 11.1 H (1.3-7.7) k/uL Lymphocytes # 0.1 L (1.0-4.8) k/uL Macrocytosis Marked A Sodium 132 L (137-145) mmol/L Chloride 97 L (98-107) mmol/L Carbon Dioxide 19 L (22-30) mmol/L BUN 50 H (7-17) mg/dL Creatinine 4.28 H (0.52-1.04) mg/dL Glucose 105 H (74-99) mg/dL POC Glucose (mg/dL) 115 H (75-99) mg/dL Calcium 7.2 L (8.4-10.2) mg/dL Phosphorus 7.3 H (2.5-4.5) mg/dL 06/03/19 Range/Units 06:13 WBC (3.8-10.6) k/uL RBC (3.80-5.40) m/uL Hgb (11.4-16.0) gm/dL Hct (34.0-46.0) % MCV (80.0-100.0) fL MCHC (31.0-37.0) g/dL RDW (11.5-15.5) % Plt Count (150-450) k/uL Neutrophils # (1.3-7.7) k/uL Lymphocytes # (1.0-4.8) k/uL Macrocytosis Sodium (137-145) mmol/L Chloride (98-107) mmol/L Carbon Dioxide (22-30) mmol/L BUN (7-17) mg/dL Creatinine (0.52-1.04) mg/dL Glucose (74-99) mg/dL POC Glucose (mg/dL) 122 H (75-99) mg/dL Calcium (8.4-10.2) mg/dL Phosphorus (2.5-4.5) mg/dL Assessment and Plan (1) Metastatic breast carcinoma Narrative/Plan: Patient presentation is suspicious for conditions such as lymphangitic spread in the lungs. Unsure if this could even be happening within the kidneys or if the renal failure was more related to the prolonged antibiotic course as required by the patient. Patient and her family have decided for comfort measures only, treatment for breast cancer will be discontinued. Focus on symptom management. Status: Chronic Priority: High Code(s): C50.919 - MALIGNANT NEOPLASM OF UNSP SITE OF UNSPECIFIED FEMALE BREAST SNOMED Code(s): 778500103 Plan: I sat and spoke with patient about her plans. Patient wants to be kept comfortable, she wants to be around her family is much as possible but, does not want them to watch her suffer. Patient is tearful at times but, stated that she feels she has had a good life. It was with great sadness that I said goodbye to the patient and her family.
--- NOTE | 2019-06-03 19:24 | PN ---
PROGRESS NOTE Patient is seen for followup for acute kidney injury, currently hemodialysis dependent. Patient has decided to proceed with hospice and comfort care measures. She is currently awake, comfortable. She is not in any acute distress. We are going to hold off on hemodialysis. Blood pressure this morning was 112/52. Heart rate 80 per minute. She is afebrile. Examination of the heart S1, S2. Examination of the lungs, bilateral breath sounds are heard. Abdomen is soft, obese. Examination of lower extremities shows no significant edema. LABS: Labs are reviewed. ASSESSMENT: 1. Acute kidney injury, hemodialysis dependent. 2. Morbid obesity. 3. Chronic obstructive pulmonary disease with exacerbation. 4. Fluid overload. 5. Metastatic breast cancer. PLAN: No plans for continued dialysis. Continue with comfort care measures. MMODL / IJN: [id number] /
--- NOTE | 2019-06-04 08:38 | P.DS ---
Providers Date of admission: 05/24/19 13:56 Attending physician: Danny Rowe MD Consults: 05/24/19 13:56 Consult Physician Routine Consulting Provider: Roland Nieto Consult Reason/Comments: Oncological care Do you want consulting provider notified?: Yes Consult Physician Routine Consulting Provider: Holly Hamilton Consult Reason/Comments: renal failure Do you want consulting provider notified?: Yes Consult Physician Stat Consulting Provider: Mone Rashid Consult Reason/Comments: Critical care Do you want consulting provider notified?: Already Contacted Consult Physician Urgent Consulting Provider: Adán Myles Consult Reason/Comments: chf, hypotension Do you want consulting provider notified?: Yes Consult Physician Urgent Consulting Provider: Arminda Horton Consult Reason/Comments: gi heorrhage Do you want consulting provider notified?: Yes 05/28/19 12:01 Consult Physician Routine Consulting Provider: Aida Gallo Consult Reason/Comments: sepsis/candiduria Do you want consulting provider notified?: Yes Primary care physician: Beata Quintero Hospital Course: Diagnoses: Pulmonary edema/congestion, secondary to acute renal failure needing hemodialysis Severe Acute respiratory failure secondary to above Acute GI bleed, with stable hemoglobin Acute blood loss anemia Acute urinary tract infection. Finish antibiotic therapy Hypotension secondary to above, Possible combined septic and hemorrhagic shock. 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 At the F she was confused and patient was found to be hypotensive and hypoxic with oxygen saturations at 78%, on her way to the hospital patient started waking up with supplemental oxygen. At first patient was sent to [facility] before she was transferred to the current hospital. Here at the current hospital patient was admitted to the ICU, he was treated with antibiotics for UTI which is improved however patient remained having pulmonary compromise including pulmonary congestion and edema secondary to her renal disease and pulmonary disease, patient remained on 60-65% of oxygen via high flow cannula. Due to patient's advanced and complicated medical problems, failure to improve with therapy. Patient was made DO NOT RESUSCITATE, eventually pulmonary critical team discussed the case with the patient and daughter and they agreed for hospice. Patient will be transferred to hospice care with medication provided for the patient for comfort care. Prognosis was extremely poor. please see examination of from the same day. Patient Condition at Discharge: Critical Plan - Discharge Summary New Discharge Prescriptions: No Action Aspirin [Adult Low Dose Aspirin EC] 162 mg PO DAILY Fluticasone Nasal Manning [Flonase Nasal Manning] 1 spray EA NOSTRIL DAILY Albuterol Inhaler [Ventolin Hfa Inhaler] 2 puff INHALATION RT-Q4H PRN PRN Reason: Shortness Of Breath Sucralfate [Carafate] 1 gm PO ACHS #120 tablet Polyethylene Glycol 3350 [Miralax] 17 gm PO DAILY PRN #30 powd.pack PRN Reason: Constipation Amiodarone [Cordarone] 200 mg PO BID tab Ipratropium-Albuterol Nebulize [Duoneb 0.5 mg-3 mg/3 ml Soln] 3 ml INHALATION RT-QID ampul.neb Ipratropium-Albuterol Nebulize [Duoneb 0.5 mg-3 mg/3 ml Soln] 3 ml INHALATION RT-Q4H PRN ampul.neb PRN Reason: shortness of breath Dronabinol [Marinol] 5 mg PO AC-BID #3 cap Melatonin 3 mg PO HS tablet Metoprolol Succinate (ER) [Toprol XL] 50 mg PO DAILY tab.er.24h Calcium Carbonate [Tums] 1,000 mg PO TID chew ALPRAZolam [Xanax] 0.25 mg PO TID PRN #6 tab PRN Reason: Anxiety Gabapentin [Neurontin] 600 mg PO HS #3 cap Ondansetron [Zofran] 4 mg PO Q8HR PRN #2 tab PRN Reason: Nausea INSULIN ASPART (NovoLOG) [NovoLOG (formulary)] See Protocol SQ ACHS Discharge Medication List Aspirin [Adult Low Dose Aspirin EC] 162 mg PO DAILY 07/03/18 [History] Albuterol Inhaler [Ventolin Hfa Inhaler] 2 puff INHALATION RT-Q4H PRN 03/05/19 [History] Fluticasone Nasal Manning [Flonase Nasal Manning] 1 spray EA NOSTRIL DAILY 03/05/19 [History] Polyethylene Glycol 3350 [Miralax] 17 gm PO DAILY PRN #30 powd.pack 03/11/19 [Rx] Sucralfate [Carafate] 1 gm PO ACHS #120 tablet 03/11/19 [Rx] ALPRAZolam [Xanax] 0.25 mg PO TID PRN #6 tab 05/20/19 [Rx] Amiodarone [Cordarone] 200 mg PO BID tab 05/20/19 [Rx] Calcium Carbonate [Tums] 1,000 mg PO TID chew 05/20/19 [Rx] Dronabinol [Marinol] 5 mg PO AC-BID #3 cap 05/20/19 [Rx] Gabapentin [Neurontin] 600 mg PO HS #3 cap 05/20/19 [Rx] Ipratropium-Albuterol Nebulize [Duoneb 0.5 mg-3 mg/3 ml Soln] 3 ml INHALATION RT-Q4H PRN ampul.neb 05/20/19 [Rx] Ipratropium-Albuterol Nebulize [Duoneb 0.5 mg-3 mg/3 ml Soln] 3 ml INHALATION RT-QID ampul.neb 05/20/19 [Rx] Melatonin 3 mg PO HS tablet 05/20/19 [Rx] Metoprolol Succinate (ER) [Toprol XL] 50 mg PO DAILY tab.er.24h 05/20/19 [Rx] Ondansetron [Zofran] 4 mg PO Q8HR PRN #2 tab 05/20/19 [Rx] INSULIN ASPART (NovoLOG) [NovoLOG (formulary)] See Protocol SQ ACHS 05/24/19 [History] Follow up Appointment(s)/Referral(s): Beata Quintero MD [Primary Care Provider] - 1-2 days Discharge Disposition: DISCH TO [facility]
--- NOTE | 2019-06-05 08:30 | CDI ---
Documentation Clarification Form Date: 06/05/19 From: Juliet Hartman Phone: If you have a question regarding this query, please contact Sade Leija at [phone] between 8am and 5pm. Admit Date: 05/24/2019 1:56:00 PM Patient Name: Santa Lopez Visit Number: [id number] Discharge Date: 06/03/2019 11:38:00 AM ATTENTION: The Clinical Documentation Specialists (CDI) and [facility] Coding Staff appreciate your assistance in clarifying documentation. Please respond to the clarification below the line at the bottom and electronically sign. The CDI & [facility] Coding staff will review the response and follow-up if needed. Please note: Queries are made part of the Legal Health Record. If you have any questions, please contact the author of this message via ITS. Dr. Delgado Sheet The patient was suspected to have a UTI was documented in Dr. Delacruz's and Dr. Almonte's progress notes and in the discharge summary. Documentation in the discharge summary states that the patient was treated with antibiotics for UTI. Consult: documented that the patient has candiduria related to her Hunter catheter, likely colonization in this patient with renal failure who hardly makes any urine. He also documented that there was no evidence of any fungal infection. No need for Diflucan and at the same time no evidence of any bacterial infection. History/Risk Factors: Confusion, ESRD, hardly makes urine Clinical Indicators: Urine is cloudy, turbid and purulent Vital Signs: T. 98, P. 93, R. 18, BP 77/40 WBC: 8.1 Urinalysis: Dark brown, turbid, 3+ protein, Large blood, large leukocyte esterase, RBC >182, WBC >182, WBC clumps many, bacteria moderate, mucus few, yeast few Urine Culture: Mary albicans Treatment: IV Zosyn, IV Rocephin, patient did not get an antifungal In your professional opinion, can you clarify if the UTI was? Ruled In Ruled Out Other (please specify) Unable to determine yes, pt had UTI and was treated for this MTDD
--- NOTE | 2019-06-05 08:50 | CDI ---
Documentation Clarification Form Date: 06/05/19 From: Juliet Hartman Phone: If you have a question regarding this query, please contact Sade Leija at [phone] between 8am and 5pm. Admit Date: 05/24/2019 1:56:00 PM Patient Name: Santa Lopez Visit Number: [id number] Discharge Date: 06/03/2019 11:38:00 AM ATTENTION: The Clinical Documentation Specialists (CDI) and [facility] Coding Staff appreciate your assistance in clarifying documentation. Please respond to the clarification below the line at the bottom and electronically sign. The CDI & [facility] Coding staff will review the response and follow-up if needed. Please note: Queries are made part of the Legal Health Record. If you have any questions, please contact the author of this message via ITS. Dr. Delgado Sheet The patient presented with confusion, hypotension and hypoxia. Dr. Rashid documented suspicion the patient is septic again likely of a urinary source. You and Dr. Almonte documented hypotension is possible combined septic and hemorrhagic shock. History/Risk Factors: Recently discharged for pneumonia, respiratory failure and septic shock and bacteremia with staph and treated for enterococcal faecalis urine. Clinical Indicators: Confusion, hypotension WBC: 8.1 Lactic acid: 1.4 and 1.1 Blood cultures: No growth Vitals signs on admission: T. 98, P. 93, R. 18, BP 77/40 ID Consult: 1. patient with positive urine culture with Mary albicans in this patient currently dialysis dependent and hardly makes any urine possibly representing colonization rather than pathogen in this patient with no fever or elevated white count. 2. patient with admission to hospital with hypotension and hypoxemia possibly related to fluid overload as clinical suspicion for underlying pneumonia has been mostly CHF pattern. Antibiotics: IV Zosyn, IV Rocephin IV Bolus: No bolus IV fluids at 100 mls/hr Other: In your professional opinion, please clarify if these findings signify one of the following conditions, whether the condition is POA, and cause, if known: Condition Sepsis ruled out SIRS, without underlying infectious process Sepsis Severe Sepsis Septic Shock Other, please specify Unable to determine Present on Admission Yes No Identify the (suspected) organism Link or clarify if there is associated (due to/with): Organ failure Shock pt had UTI but no SIRs based upon above information MTDD
== END 2019-06-03 11:38 | disposition hospice, inpatient (51) | DRG 377 ==
LOC: EC 12:33 → 2SICU 13:56
PROVIDERS: ADMIT Internal Medicine; ATTEND Internal Medicine
PROC: 30243N1 Transfusion of Nonautologous Red Blood Cells into Central Vein, Percutaneous Approach (ICD-10-PCS; principal; 2019-05-24)
PROC: 06HY33Z Insertion of Infusion Device into Lower Vein, Percutaneous Approach (ICD-10-PCS; 2019-05-24)
PROC: 5A1D70Z Performance of Urinary Filtration, Intermittent, Less than 6 Hours Per Day (ICD-10-PCS; 2019-05-25)
DX: K92.2 Gastrointestinal hemorrhage, unspecified (principal); R57.8 Other shock; J96.01 Acute respiratory failure with hypoxia; K76.7 Hepatorenal syndrome; N18.6 End stage renal disease; N17.9 Acute kidney failure, unspecified; C79.51 Secondary malignant neoplasm of bone; D62 Acute posthemorrhagic anemia; I13.2 Hypertensive heart and chronic kidney disease with heart failure and with stage 5 chronic kidney disease, or end stage renal disease; I50.42 Chronic combined systolic (congestive) and diastolic (congestive) heart failure; I69.354 Hemiplegia and hemiparesis following cerebral infarction affecting left non-dominant side; J44.1 Chronic obstructive pulmonary disease with (acute) exacerbation; C78.7 Secondary malignant neoplasm of liver and intrahepatic bile duct; Z68.42 Body mass index [BMI] 45.0-49.9, adult; N39.0 Urinary tract infection, site not specified; I95.89 Other hypotension; E88.89 Other specified metabolic disorders; I27.29 Other secondary pulmonary hypertension; D69.6 Thrombocytopenia, unspecified; E66.01 Morbid (severe) obesity due to excess calories; E83.51 Hypocalcemia; E88.09 Other disorders of plasma-protein metabolism, not elsewhere classified; I48.0 Paroxysmal atrial fibrillation; R13.10 Dysphagia, unspecified; D50.9 Iron deficiency anemia, unspecified; D63.1 Anemia in chronic kidney disease; E78.5 Hyperlipidemia, unspecified; E87.6 Hypokalemia; G89.3 Neoplasm related pain (acute) (chronic); I25.10 Atherosclerotic heart disease of native coronary artery without angina pectoris; I35.2 Nonrheumatic aortic (valve) stenosis with insufficiency; R79.89 Other specified abnormal findings of blood chemistry; T45.1X5A Adverse effect of antineoplastic and immunosuppressive drugs, initial encounter; R32 Unspecified urinary incontinence; Z51.5 Encounter for palliative care; Z66 Do not resuscitate; Z79.82 Long term (current) use of aspirin; Z79.899 Other long term (current) drug therapy; Z79.4 Long term (current) use of insulin; Z99.2 Dependence on renal dialysis; Z96.652 Presence of left artificial knee joint; Z92.3 Personal history of irradiation; Z90.710 Acquired absence of both cervix and uterus; Z87.891 Personal history of nicotine dependence; Z87.01 Personal history of pneumonia (recurrent); Z85.3 Personal history of malignant neoplasm of breast; Z80.0 Family history of malignant neoplasm of digestive organs; Z80.1 Family history of malignant neoplasm of trachea, bronchus and lung; Z82.49 Family history of ischemic heart disease and other diseases of the circulatory system
CPT/HCPCS: 36410; 36415; 36430; 36556; 71045; 76937; 80048; 80053; 80076; 81001; 82330; 82607; 82668; 82728; 83010; 83036; 83540; 83550; 83605; 83615; 83735; 83880; 83921; 83970; 84100; 84132; 85025; 85027; 85610; 85730; 86850; 86900; 86901; 86920; 87040; 87086; 90935; 94640; 96365; 96366; 96368; 96375; 99291

== ENCOUNTER 2019-06-03 10:24 | Inpatient (IN) | payer MEDICAID ==
[2019-06-03] MEDS ORDERED: GLYCOPYRROLATE 0.2 MG/ML 2 ML VIAL IVP PRN (11:21)
[2019-06-03] MEDS ORDERED: ONDANSETRON 4 MG/2 ML VIAL IVP PRN (11:21)
[2019-06-03] MEDS ORDERED: ATROPINE OPHTH SOLN 1% 5ML BTL SUBLINGUAL PRN (11:21)
[2019-06-03] MEDS ORDERED: LORazepam 2 MG/ML INJ IV PRN (11:21)
[2019-06-03] MEDS ORDERED: BISACODYL 10 MG SUPP RECTAL PRN (11:26)
[2019-06-03] MEDS ORDERED: SCOPOLAMINE 1.5MG/72HR PATCH TRANSDERM SCH (11:30)
[2019-06-03] MEDS ORDERED: MORPHINE SULFATE 2 MG/ML SYRINGE IVP PRN (11:36)
[2019-06-03] MEDS: MORPHINE SULFATE (100 MG/2 ML) 100 MG in SODIUM CHLORIDE 0.9% 100 ML IV SCH ×2 (12:04→20:35)
[2019-06-03 14:03] VITALS: BMI 46.6
[2019-06-04] MEDS: MORPHINE SULFATE (100 MG/2 ML) 100 MG in SODIUM CHLORIDE 0.9% 100 ML IV SCH (06:25)
[2019-06-04 08:04] VITALS: BP 67/24; PULSE 73; RESP 5
--- NOTE | 2019-06-04 08:40 | P.HPIM ---
History of Present Illness Hospital course This is a pleasant 64 years old female with past medical history of hyperlipidemia, hypertension, CVA/TIA, metastatic left breast cancer in 1997 and the spine cancer in 2018, mostly its metastasis from her breast cancer, end- stage renal disease on dialysis, atrial fibrillation with RVR, she was recently discharged from the hospital for recent pneumonia and respiratory failure Patient was transferred from [facility] for GI hemorrhage and hypotension. At the [facility] she was confused and patient was found to be hypotensive and hypoxic with oxygen saturations at 78%, on her way to the hospital patient started waking up with supplemental oxygen. At first patient was sent to [facility] before she was transferred to the current hospital. Here at the current hospital patient was admitted to the ICU, he was treated with antibiotics for UTI which is improved however patient remained having pulmonary compromise including pulmonary congestion and edema secondary to her renal disease and pulmonary disease, patient remained on 60-65% of oxygen via high flow cannula. Due to patient's advanced and complicated medical problems, failure to improve with therapy. Patient was made DO NOT RESUSCITATE, eventually pulmonary critical team discussed the case with the patient and daughter and they agreed for hospice. Patient will be transferred to hospice care with medication provided for the patient for comfort care. Prognosis was extremely poor. please see examination of from the same day. at bedside, and patient is unresponsive but looked comfortable. Discussed the case with her , he did not have any questions and he thinks the patient is comfortable as well Review of Systems None applicable Past Medical History Past Medical History: Cancer, CVA/TIA, Hyperlipidemia, Hypertension, Renal Disease Additional Past Medical History / Comment(s): hx CVA left side 2018, Left breast cancer 1997, spine cancer 2017, KIT currently chronic kidney failure and the patient is requiring hemodialysis periodically 3 times a week my recent hospitalization for sepsis History of Any Multi-Drug Resistant Organisms: None Reported Past Surgical History: Breast Surgery, Hysterectomy, Joint Replacement Additional Past Surgical History / Comment(s): left knee replacement, several breast biopsies Past Anesthesia/Blood Transfusion Reactions: No Reported Reaction Past Psychological History: No Psychological Hx Reported Additional Psychological History / Comment(s): Pt resides with her spouse of 46 yrs. She uses a walker lately to ambulate. She drives. Smoking Status: Former smoker Past Alcohol Use History: Rare Additional Past Alcohol Use History / Comment(s): Pt started smoking in 1972 and quit in 2012. Past Drug Use History: None Reported - Past Family History Father Family Medical History: Cancer Additional Family Medical History / Comment(s): Father from cancer in the lining of his lungs. He had occupational chemical exposures. Mother Family Medical History: Cancer, Coronary Artery Disease (CAD) Additional Family Medical History / Comment(s): Mother had colon cancer with surgery. She also had heart disease. Medications and Allergies Home Medications Medication Instructions Recorded Confirmed Type Aspirin [Adult Low Dose Aspirin EC] 162 mg PO DAILY 07/03/18 06/03/19 History Albuterol Inhaler [Ventolin Hfa 2 puff INHALATION RT-Q4H PRN 03/05/19 06/03/19 History Inhaler] Fluticasone Nasal Sledge [Flonase 1 spray EA NOSTRIL DAILY 03/05/19 06/03/19 History Nasal Sledge] Polyethylene Glycol 3350 [Miralax] 17 gm PO DAILY PRN #30 powd.pack 03/11/19 06/03/19 Rx Sucralfate [Carafate] 1 gm PO ACHS #120 tablet 03/11/19 06/03/19 Rx ALPRAZolam [Xanax] 0.25 mg PO TID PRN #6 tab 05/20/19 06/03/19 Rx Amiodarone [Cordarone] 200 mg PO BID tab 05/20/19 06/03/19 Rx Calcium Carbonate [Tums] 1,000 mg PO TID chew 05/20/19 06/03/19 Rx Dronabinol [Marinol] 5 mg PO AC-BID #3 cap 05/20/19 06/03/19 Rx Gabapentin [Neurontin] 600 mg PO HS #3 cap 05/20/19 06/03/19 Rx Ipratropium-Albuterol Nebulize 3 ml INHALATION RT-Q4H PRN 05/20/19 06/03/19 Rx [Duoneb 0.5 mg-3 mg/3 ml Soln] ampul.neb Ipratropium-Albuterol Nebulize 3 ml INHALATION RT-QID ampul.neb 05/20/19 06/03/19 Rx [Duoneb 0.5 mg-3 mg/3 ml Soln] Melatonin 3 mg PO HS tablet 05/20/19 06/03/19 Rx Metoprolol Succinate (ER) [Toprol 50 mg PO DAILY tab.er.24h 05/20/19 06/03/19 Rx XL] Ondansetron [Zofran] 4 mg PO Q8HR PRN #2 tab 05/20/19 06/03/19 Rx INSULIN ASPART (NovoLOG) [NovoLOG See Protocol SQ ACHS 05/24/19 06/03/19 History (formulary)] Allergies Allergy/AdvReac Type Severity Reaction Status Date / Time No Known Allergies Allergy Verified 06/03/19 13:13 Physical Exam Vitals: Vital Signs Pulse Pulse Resp BP BP Pulse Ox 06/04/19 07:00 73 5 L 67/24 63 L 06/03/19 23:00 88 8 L 93/41 48 L 06/03/19 19:00 108 H 7 L 135/60 44 L 06/03/19 18:01 86 8 L 46 L 06/03/19 17:00 81 8 L 130/62 45 L 06/03/19 16:00 78 11 L 122/60 60 L 06/03/19 15:00 75 9 L 131/59 70 L 06/03/19 14:08 73 12 131/59 76 L Intake and Output 06/03/19 06/04/19 06/04/19 22:59 06:59 14:59 Intake Total 133.92 90.24 12.784 Balance 133.92 90.24 12.784 Intake: IV 70 10 0.9 70 10 Intake, IV Titration 63.92 80.24 12.784 Amount Morphine Sulfate (100 mg/ 63.92 80.24 12.784 2 ml) 100 mg In Sodium Chloride 0.9% 100 ml @ 1 MG/HR 1.02 mls/hr IV . Q24H [facility] Rx#:[id number] Other: # Voids 0 -GENERAL: The patient is unresponsive HEENT: Pupils are round and equally reacting to light. EOMI. No scleral icterus. No conjunctival pallor. Normocephalic, atraumatic. No pharyngeal erythema. No thyromegaly. CARDIOVASCULAR: S1 and S2 present. No murmurs, rubs, or gallops. -PULMONARY: Patient's with the slow breaths, Chest is clear to auscultation, no wheezing or crackles. ABDOMEN: Soft, nontender, nondistended, normoactive bowel sounds. No palpable organomegaly. MUSCULOSKELETAL: No joint swelling or deformity. EXTREMITIES: No cyanosis, clubbing, or pedal edema. NEUROLOGICAL: Gross neurological examination did not reveal any focal deficits. SKIN: No rashes. no petechiae. Assessment and Plan Assessment: Pulmonary edema/congestion, secondary to acute renal failure needing hemodialysis Severe Acute respiratory failure secondary to above Acute GI bleed, with stable hemoglobin Acute blood loss anemia Acute urinary tract infection. Finish antibiotic therapy Hypotension secondary to above, Possible combined septic and hemorrhagic shock. 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 Patient looks comfortable currently. No more labs. Continue with morphine, Zofran as needed, oxygen, scopolamine patch patient is DO NOT RESUSCITATE Prognosis is extremely poor
== END 2019-06-04 10:48 | disposition expired | DRG 951 ==
LOC: 2SICU 11:39
PROVIDERS: ADMIT Internal Medicine; ATTEND Internal Medicine
DX: Z51.5 Encounter for palliative care (principal); A41.9 Sepsis, unspecified organism; R65.21 Severe sepsis with septic shock; J96.01 Acute respiratory failure with hypoxia; R40.2113 Coma scale, eyes open, never, at hospital admission; R40.2213 Coma scale, best verbal response, none, at hospital admission; N18.6 End stage renal disease; N17.9 Acute kidney failure, unspecified; D62 Acute posthemorrhagic anemia; I12.0 Hypertensive chronic kidney disease with stage 5 chronic kidney disease or end stage renal disease; N39.0 Urinary tract infection, site not specified; C78.7 Secondary malignant neoplasm of liver and intrahepatic bile duct; I69.954 Hemiplegia and hemiparesis following unspecified cerebrovascular disease affecting left non-dominant side; C79.51 Secondary malignant neoplasm of bone; J81.1 Chronic pulmonary edema; K92.2 Gastrointestinal hemorrhage, unspecified; R57.8 Other shock; D69.6 Thrombocytopenia, unspecified; I48.91 Unspecified atrial fibrillation; R40.2353 Coma scale, best motor response, localizes pain, at hospital admission; I35.2 Nonrheumatic aortic (valve) stenosis with insufficiency; E78.5 Hyperlipidemia, unspecified; Z66 Do not resuscitate; Z79.82 Long term (current) use of aspirin; Z79.4 Long term (current) use of insulin; Z79.899 Other long term (current) drug therapy; Z99.2 Dependence on renal dialysis; Z85.3 Personal history of malignant neoplasm of breast; Z90.710 Acquired absence of both cervix and uterus; Z90.12 Acquired absence of left breast and nipple; Z96.652 Presence of left artificial knee joint; Z98.890 Other specified postprocedural states; Z87.891 Personal history of nicotine dependence; Z87.01 Personal history of pneumonia (recurrent); Z80.0 Family history of malignant neoplasm of digestive organs; Z82.49 Family history of ischemic heart disease and other diseases of the circulatory system; Z80.1 Family history of malignant neoplasm of trachea, bronchus and lung